=== PATIENT | male | born 1965 | race Hispanic/Latino ===

== ENCOUNTER 2017-01-23 23:08 | Observation (INO) | payer MEDICAID, OTHER ==
[2017-01-23 23:09] VITALS: BMI 19.8
[2017-01-23 23:20] VITALS: RESP 20; O2SAT 96
--- NOTE | 2017-01-23 23:31 | C.PDOC ---
History Of Present Illness 51 year old patient, with a past medical history of hypertension, arthritis, anxiety, and COPD, is brought to the ED via EMS for public intoxication. Patient is well known in the ED for frequent visits for the same. Patient denies fever, chest pain, shortness of breath, rash, nausea, vomiting, abdominal pain, headache, dizziness, suidical or homicidal ideation, or any other complaints. Pt asked for food on arrival. Time Seen by Provider: 01/23/17 23:25 Chief Complaint (Nursing): Substance Abuse History Per: Patient History/Exam Limitations: no limitations Onset/Duration Of Symptoms: Hrs Current Symptoms Are (Timing): Still Present Suicide/Self Injury Attempted (Context): None Modifying Factor(s): Alcohol Severity: Mild Involuntary Hold By: None Recent travel outside of the [place]: No Past Medical History Reviewed: Historical Data, Nursing Documentation, Vital Signs Vital Signs: Last Vital Signs Temp 97.6 F 01/23/17 23:15 Pulse 95 H 01/23/17 23:15 Resp 20 01/23/17 23:15 BP 122/69 01/23/17 23:15 Pulse Ox 96 01/24/17 00:31 - Medical History PMH: Anxiety, Arthritis, COPD, Depression, HTN, Pancreatitis, Pneumonia, Seizures Surgical History: - [facility] Procedures ALCOHOL DETOXIFICATION (07/31/14) DETOXIFICATION SERVICES FOR SUBSTANCE ABUSE TREATMENT (12/02/16) EXCISION OF SMALL INTESTINE, ENDO, DIAGN (12/02/16) INFLUENZA VACCINATION (10/21/13) INJECT/INFUSE ELECTROLYT (05/15/13) INJECT/INFUSE NEC (10/02/14) INSERT INTERCOSTAL CATH (01/22/15) INSERTION OF INFUSION DEV INTO SUP VENA CAVA, PERC APPROACH (12/02/16) LINEAR REP LID LACER (11/07/14) OTHER GROUP THERAPY (06/07/13) TETANUS TOXOID ADMINIST (11/07/14) THORACOSCOPIC DECORTICATION OF LUNG (01/22/15) TRANSFUSE NONAUT PLATELETS IN PERIPH VEIN, PERC (06/29/16) VACCINATION NEC (02/18/15) Family History: States: Unknown Family Hx - Social History Hx Tobacco Use: Yes Hx Alcohol Use: Yes Hx Substance Use: No - Immunization History Hx Tetanus Toxoid Vaccination: No Hx Influenza Vaccination: No Hx Pneumococcal Vaccination: No Review Of Systems Except As Marked, All Systems Reviewed And Found Negative. Constitutional: Negative for: Fever, Chills Cardiovascular: Negative for: Chest Pain Respiratory: Negative for: Shortness of Breath Gastrointestinal: Negative for: Nausea, Vomiting, Abdominal Pain Skin: Negative for: Rash Neurological: Negative for: Headache, Dizziness Psych: Negative for: Suicidal ideation (or homicidal ideation) Physical Exam - Physical Exam Appears: Non-toxic, No Acute Distress, Other (Intoxicated (+AOB)) Skin: Warm, Dry Head: Atraumatic, Normacephalic Eye(s): bilateral: Normal Inspection Oral Mucosa: Moist Neck: Normal ROM, Supple Cardiovascular: Rhythm Regular Respiratory: Normal Breath Sounds, No Accessory Muscle Use, No Rales, No Rhonchi , No Wheezing Gastrointestinal/Abdominal: Soft, No Tenderness, No Guarding, No Rebound Neurological/Psych: Oriented x3 ED Course And Treatment O2 Sat by Pulse Oximetry: 96 (Room air) Pulse Ox Interpretation: Normal Medical Decision Making Medical Decision Making: Pt is pending for sobriety. 530: pt awake alert ambulatory in [facility] ED OBSERVATION Date of observation admission: 01/23/17 Time of observation admission: 23:35 - Observation admission statement Patient is being placed in observation because:: Pending for sobriety. - Goals of Observation Goals of observation are:: Sobriety Disposition - Disposition Disposition Time: 05:31 Condition: STABLE - Clinical Impression Clinical Impression: Alcohol abuse - Scribe Statement The provider has reviewed the documentation as recorded by the Yocastaibbrenda coreas All medical record entries made by the Yocastaibbrenda were at my direction and personally dictated by me. I have reviewed the chart and agree that the record accurately reflects my personal performance of the history, physical exam, medical decision making, and the department course for this patient. I have also personally directed, reviewed, and agree with the discharge instructions and disposition.
[2017-01-24 05:36] VITALS: BP 136/72; PULSE 89; TEMP 98.1
== END 2017-01-24 05:33 | disposition home or self-care (01) ==
LOC: SUPCPDRO 23:08 → C.ER 23:08 → C.9OBSV 23:30
PROVIDERS: ADMIT Student in an Organized Health Care Education/Training Program; ATTEND Student in an Organized Health Care Education/Training Program
DX: F10.120 Alcohol abuse with intoxication, uncomplicated (principal); Y90.9 Presence of alcohol in blood, level not specified; Z87.891 Personal history of nicotine dependence; I10 Essential (primary) hypertension; J44.9 Chronic obstructive pulmonary disease, unspecified; Z59.0 Homelessness
CPT/HCPCS: G0378 ×2

== ENCOUNTER 2017-01-25 06:47 | Inpatient (IN) | payer OTHER ==
[2017-01-25 06:47] VITALS: BMI 19.8
--- NOTE | 2017-01-25 08:07 | C.PDOC ---
History Of Present Illness <Tasha Willis - Last Filed: 01/25/17 10:05> <Levar Bennett Jr. - Last Filed: 01/25/17 13:34> 51-year-old male, PMHx includes EtOH Abuse, Hypertension, Arthritis, Anxiety COPD, presents to the emergency department with complaints of public intoxication. Patients last drink was last night, states "they brought me here. " He is currently complaining of epigastric pain for unknown duration. Denies vomiting, diarrhea. All other Hx limited because pt is poor historian. POOR HISTORIAN "THEY BROUGHT ME HERE". +ETOH ABUSE, LAST DRINK LAST NIGHT. CO EPIG PAIN FOR UNK DURATION. DENIES VOMITING, DIARRHEA. DENIES PSH. past medical history of hypertension, arthritis, anxiety, and COPD, ROS LIMITED EXAM NONTOXIC, HEENT ANICTERIC; NO FASCICULATION ABD +EPIG TEND MOD SOFT NO R/G CV RRR NEURO NO FOCAL DEF;FINE TREMOR PSYCH MILD INTOX BUT CALM COOPERATIVE OLD REC: MULT RECENT ER VISITS FOR HOMELESSNESS, ABD PAIN. CT AND US RESULTS REVIEWED 01/23. MULT RECENT CT DONE . (Tasha Willis) History Per: Patient History/Exam Limitations: intoxication Onset/Duration Of Symptoms: Days <Tasha Willis - Last Filed: 01/25/17 10:05> <Levar Bennett Jr. - Last Filed: 01/25/17 13:34> Time Seen by Provider: 01/25/17 08:00 Chief Complaint (Nursing): Substance Abuse Past Medical History Reviewed: Historical Data, Nursing Documentation, Vital Signs - Medical History PMH: Anxiety, Arthritis, COPD, Depression, HTN, Pancreatitis, Pneumonia, Seizures Surgical History: Family History: States: Unknown Family Hx - Social History Hx Tobacco Use: Yes Hx Alcohol Use: Yes Hx Substance Use: No - Immunization History Hx Tetanus Toxoid Vaccination: No Hx Influenza Vaccination: No Hx Pneumococcal Vaccination: No <Tasha Willis - Last Filed: 01/25/17 10:05> Vital Signs: Last Vital Signs Temp 99.1 F 01/25/17 09:50 Pulse 78 01/25/17 13:24 Resp 20 01/25/17 13:24 BP 149/85 01/25/17 13:24 Pulse Ox 99 01/25/17 13:24 - [facility] Procedures ALCOHOL DETOXIFICATION (07/31/14) DETOXIFICATION SERVICES FOR SUBSTANCE ABUSE TREATMENT (12/02/16) EXCISION OF SMALL INTESTINE, ENDO, DIAGN (12/02/16) INFLUENZA VACCINATION (10/21/13) INJECT/INFUSE ELECTROLYT (05/15/13) INJECT/INFUSE NEC (10/02/14) INSERT INTERCOSTAL CATH (01/22/15) INSERTION OF INFUSION DEV INTO SUP VENA CAVA, PERC APPROACH (12/02/16) LINEAR REP LID LACER (11/07/14) OTHER GROUP THERAPY (06/07/13) TETANUS TOXOID ADMINIST (11/07/14) THORACOSCOPIC DECORTICATION OF LUNG (01/22/15) TRANSFUSE NONAUT PLATELETS IN PERIPH VEIN, PERC (06/29/16) VACCINATION NEC (02/18/15) Review Of Systems Review Of Systems: ROS cannot be obtained secondary to pt's inabilty to answer questions. Gastrointestinal: Positive for: Abdominal Pain Psych: Negative for: Suicidal ideation <Tasha Willis - Last Filed: 01/25/17 10:05> Physical Exam - Physical Exam Appears: Non-toxic, No Acute Distress, Other (MILD INTOX BUT CALM COOPERATIVE) Skin: Warm, Dry, No Rash Head: Atraumatic, Normacephalic Eye(s): bilateral: Normal Inspection, PERRL, EOMI, Other (ANICTERIC) Nose: Normal Oral Mucosa: Moist Tongue: Other (NO FASCICULATION) Neck: Normal ROM Cardiovascular: Rhythm Regular Respiratory: Normal Breath Sounds, No Accessory Muscle Use Gastrointestinal/Abdominal: Tenderness (MODERATE, EPIGASTRIC), No Guarding, No Rebound Extremity: Normal ROM Neurological/Psych: Other (NO FOCAL DEF; FINE TREMOR) <Tasha Willis - Last Filed: 01/25/17 10:05> ED Course And Treatment - Laboratory Results Result Diagrams: 01/25/17 08:54 01/25/17 08:54 O2 Sat by Pulse Oximetry: 95 Pulse Ox Interpretation: Normal - Radiology CXR: Interpreted by Ct CXR Interpretation: Yes: Infiltrates (rml) <Tasha Willis - Last Filed: 01/25/17 10:05> - Laboratory Results Result Diagrams: 01/25/17 08:54 01/25/17 08:54 <Levar Bennett Jr. - Last Filed: 01/25/17 13:34> Progress - Data Reviewed Data Reviewed: Lab, Diagnostic imaging, Old records <Tasha Willis - Last Filed: 01/25/17 10:05> Medical Decision Making <Tasha Willis - Last Filed: 01/25/17 10:05> <Levar Bennett Jr. - Last Filed: 01/25/17 13:34> Medical Decision Making: OLD REC: MULT RECENT ER VISITS FOR HOMELESSNESS, ABD PAIN. CT AND US RESULTS REVIEWED 01/23. MULT RECENT CT DONE . (Tasha Willis) ED OBSERVATION Date of observation admission: 01/25/17 Time of observation admission: 07:30 <Tasha Willis - Last Filed: 01/25/17 10:05> <Levar Bennett Jr. - Last Filed: 01/25/17 13:34> - Observation admission statement Patient is being placed in observation because:: abd pain, etoh abuse (Tasha Willis) - Goals of Observation Goals of observation are:: SOBRIETY; NEG SURG ABD (Tasha Willis) - Progress Note Progress Note: 01/25/17 10:00 VSS IMPROVED COMPARED TO PRIOR. APPEARS WEAK. 99% RA. D/W DR SHANDA AIKEN ENTERER WILL ADMIT 01/25/17 10:05 D/W DR ESCALONA MED RES (Tasha Willis) Disposition Counseled Patient/Family Regarding: Studies Performed, Diagnosis - Disposition Disposition Time: 09:59 - POA Present On Arrival: None <Tasha Willis - Last Filed: 01/25/17 10:05> <Levar Bennett Jr. - Last Filed: 01/25/17 13:34> - Disposition Disposition: HOSPITALIZED Condition: STABLE - Clinical Impression Clinical Impression: Pneumonia, Homelessness, Alcohol withdrawal - Scribe Statement The provider has reviewed the documentation as recorded by the Scribe <Tasha Willis - Last Filed: 01/25/17 10:05> <Levar Bennett Jr. - Last Filed: 01/25/17 13:34> - Scribe Statement Adele Foreman All medical record entries made by the Scribe were at my direction and personally dictated by me. I have reviewed the chart and agree that the record accurately reflects my personal performance of the history, physical exam, medical decision making, and the department course for this patient. I have also personally directed, reviewed, and agree with the discharge instructions and disposition. (Tasha Willis) Decision To Admit - Pt Status Changed To: Hospital Disposition Of: Inpatient - Admit Certification Admit to Inpatient:: After my assessment, the patient will require hospitalization for at least two midnights. This is because of the severity of symptoms shown, intensity of services needed, and/or the medical risk in this patient being treated as an outpatient. - InPatient: Physician Admission Certification: I certify that this patient requires 2 or more midnights of care for the following reason:: SEE NOTE - . Bed Request Type: Regular Admitting Physician: Theodore Roy Jr. <Tasha Willis - Last Filed: 01/25/17 10:05> <Levar Bennett Jr. - Last Filed: 01/25/17 13:34> - . Patient Diagnosis: Pneumonia, Homelessness, Alcohol withdrawal
[2017-01-25] MEDS ORDERED: Sodium Chloride 0.9% 1,000 ML IV ONE (08:09)
[2017-01-25] MEDS ORDERED: cefTRIAXone IV 1 gm in Dextros 50 ML IV STA (08:25)
[2017-01-25] MEDS ORDERED: Azithromycin 500 MG in Sodium Chloride 0.9% 250 ML IV STA (08:25)
--- NOTE | 2017-01-25 08:25 | RAD ---
PROCEDURE: CHEST RADIOGRAPH, 1 VIEW HISTORY: abd pain COMPARISON: 12/02/2016 FINDINGS: LUNGS: There is an interval right basal small infiltrate present. PLEURA: No pneumothorax or pleural fluid seen. CARDIOVASCULAR: Normal. OSSEOUS STRUCTURES: No significant abnormalities. VISUALIZED UPPER ABDOMEN: Normal. OTHER FINDINGS: None. IMPRESSION: Interval right basal infiltrate
[2017-01-25] MEDS ORDERED: cefTRIAXone IV 1 gm in Dextros 50 ML IVPB ONE (08:40)
[2017-01-25] MEDS ORDERED: Sodium Chloride 0.9% 1,000 ML ONE (08:41)
[2017-01-25 08:57] LABS: BASO # 0.1 K/uL (0.0-0.2); BASO % 1.2 % (0.0-2.0); EOS % 0.5 % (0.0-4.0); HEMATOCRIT 33.8 % (35.0-51.0); LYMPH # 1.2 K/uL (1.0-4.3); LYMPH % 15.9 % (20.0-40.0); MEAN CORPUSCULAR HEMOGLOBIN 25.5 pg (27.0-31.0); MEAN CORPUSCULAR HGB CONC 32.2 g/dL (33.0-37.0); MEAN PLATELET VOLUME 8.1 fL (7.2-11.7); MONO # 0.4 K/uL (0.0-0.8); MONO % 5.2 % (0.0-10.0); NRBC % 0.3 % (0.0-2.0); RED CELL DISTRIBUTION WIDTH 17.4 % (11.5-14.5)
[2017-01-25 09:06] LABS: CHLORIDE 91 mmol/L (98-107); POTASSIUM 3.9 mmol/L (3.6-5.2); SODIUM 137 mmol/L (132-148)
[2017-01-25 09:07] LABS: MEAN CELL VOLUME 79.2 fL (80.0-94.0); WHITE BLOOD COUNT 7.7 K/uL (4.8-10.8)
[2017-01-25 09:08] LABS: ALKALINE PHOSPHATASE 184 U/L (38-126); AST/SGOT 77 U/L (17-59); BILIRUBIN,TOTAL 0.5 mg/dL (0.2-1.3); BLOOD UREA NITROGEN 8 mg/dL (9-20); CARBON DIOXIDE 32 mmol/L (22-30); GFR AFRICAN-AMERICAN > 60
[2017-01-25 09:09] LABS: ALT/SGPT 43 U/L (21-72); CALCIUM 8.5 mg/dl (8.6-10.4); GLUCOSE,RANDOM 80 mg/dL (75-110)
[2017-01-25] MEDS ORDERED: Azithromycin 500mg/250ML NS 250 ML IVPB ONE (09:20)
[2017-01-25 11:11] LABS: RBC URINE < 1 /hpf (0-3); URINE BILIRUBIN NEGATIVE (NEGATIVE); URINE BLOOD NEGATIVE (NEGATIVE); URINE COLOR Straw (YELLOW); URINE GLUCOSE (UA) 1+ mg/dL (Normal); URINE KETONE NEGATIVE (NEGATIVE); URINE LEUKOCYTE ESTERASE NEG Leu/uL (Negative); URINE PROTEIN NEGATIVE (NEGATIVE); URINE UROBILINOGEN NORMAL mg/dL (0.2-1.0); WBC URINE < 1 /hpf (0-5)
--- NOTE | 2017-01-25 13:17 | CP.PCM.HP ---
History of Present Illness - History of Present Illness History of Present Illness: CC: public intoxication HPI: This is a 51-year-old homeless male, PMHx includes EtOH Abuse, Hypertension , Arthritis, Anxiety COPD, presented to the emergency department after being brought into the ED for public intoxication. Pt is very familiar to ED staff for same complaint and is a poor historian. Pt admits to come epigastric pain that he states he has on and off. It is sharp in nature and does not radiate anywhere else. He was worked up for this ~[address] of the abd/ pelvis. No acute findings were noted. Diffuse calcification of the pancreas noted and consistent with chronic pancreatitis, likely secondary to his Etoh abuse. Pt also admits to a cough that he was not able to clarify as to when it started as it is somewhat chronic in nature which is also consistent with his smoking history. He states it is non-productive, denies fevers, chills, chest pain, palpitations, nausea or vomiting. PMD: none PMH: as above PSH: Denies Home meds: none Allergies: NKA FH: denies SH: Extensive Etoh abuse hx (at least 1 pint a day for "years), tobacco for >40 years, denies other drugs, homeless Present on Admission - Present on Admission Any Indicators Present on Admission: No Review of Systems - Constitutional Constitutional: absent: Chills, Fever - EENT Eyes: absent: Pain Nose/Mouth/Throat: absent: Nasal Congestion, Nasal Discharge - Cardiovascular Cardiovascular: absent: Chest Pain, Palpitations - Respiratory Respiratory: Cough, Pain with Coughing. absent: Dyspnea - Gastrointestinal Gastrointestinal: Abdominal Pain (epigastric). absent: Nausea, Vomiting - Genitourinary Genitourinary: absent: Urinary Frequency, Urinary Urgency - Musculoskeletal Musculoskeletal: absent: Muscle Weakness, Stiffness - Integumentary Integumentary: absent: Pruritus, Rash Past Patient History - Infectious Disease Hx of Infectious Diseases: None - Tetanus Immunizations Tetanus Immunization: Unknown - Past Medical History & Family History Past Medical History?: Yes - Past Social History Smoking Status: Heavy Smoker > 10 Cigarettes Daily - CARDIAC Hx Hypertension: Yes - PULMONARY Hx Chronic Obstructive Pulmonary Disease (COPD): Yes Hx Pneumonia: Yes - NEUROLOGICAL Hx Seizures: Yes - HEENT Hx HEENT Problems: No - RENAL Hx Chronic Kidney Disease: No - ENDOCRINE/METABOLIC Hx Endocrine Disorders: No - HEMATOLOGICAL/ONCOLOGICAL Hx Human Immunodeficiency Virus (HIV): No - INTEGUMENTARY Hx Dermatological Problems: No - MUSCULOSKELETAL/RHEUMATOLOGICAL Hx Arthritis: Yes - GASTROINTESTINAL Hx Pancreatitis: Yes - PSYCHIATRIC Hx Anxiety: Yes Hx Depression: Yes Hx Substance Use: No - SURGICAL HISTORY Hx Surgeries: No Other/Comment: left lung surgery - ANESTHESIA Hx Anesthesia: Yes Hx Anesthesia Reactions: No Hx Malignant Hyperthermia: No Meds Allergies/Adverse Reactions: Allergies Allergy/AdvReac Type Severity Reaction Status Date / Time No Known Allergies Allergy Verified 01/25/17 06:57 Physical Exam - Constitutional Appears: No Acute Distress, Chronically Ill - Head Exam Head Exam: ATRAUMATIC, NORMOCEPHALIC - Eye Exam Eye Exam: Normal appearance Pupil Exam: PERRL - ENT Exam ENT Exam: Mucous Membranes Moist - Respiratory Exam Respiratory Exam: Rhonchi, NORMAL BREATHING PATTERN - Cardiovascular Exam Cardiovascular Exam: +S1, +S2 - GI/Abdominal Exam GI & Abdominal Exam: Normal Bowel Sounds, Tenderness (acutely tender in epigastric area). absent: Distended - Extremities Exam Extremities exam: Positive for: normal capillary refill - Back Exam Back exam: NORMAL INSPECTION - Neurological Exam Neurological exam: Alert, Oriented x3 - Skin Skin Exam: Dry, Warm Results - Vital Signs Recent Vital Signs: Last Vital Signs Temp 99.1 F 01/25/17 09:50 Pulse 81 01/25/17 09:54 Resp 13 01/25/17 09:54 BP 157/92 H 01/25/17 09:54 Pulse Ox 95 01/25/17 10:05 - Labs Result Diagrams: 01/25/17 08:54 01/25/17 08:54 Labs: Laboratory Results - last 24 hr 01/25/17 11:06 Urine Color Straw Urine Clarity Clear Urine pH 7.0 Ur Specific [place] 1.010 Urine Protein Negative Urine Glucose (UA) 1+ H Urine Ketones Negative Urine Blood Negative Urine Nitrate Negative Urine Bilirubin Negative Urine Urobilinogen Normal Ur Leukocyte Esterase Neg Urine WBC (Auto) < 1 Urine RBC (Auto) < 1 Ur Squamous Epith Cells < 1 Assessment & Plan - Assessment and Plan (Free Text) Assessment: Right lower infiltrate - CXR 01/25 - Interval right basal infiltrate - Nosocomial vs aspiration pneumonia - Afebrile and no leukocytosis - Given 1 dose of Rocephin and Azithromycin in ED - Pt started on Clindamycin and Rocephin - Pulmonology consult ([place]) - help appreciated - Tylenol PRN - Morning labs, f/u - F/U cultures Etoh withdrawal - Pt mildy hypertensive and is slightly tremulous - Last drink reportedly last night - Librium 50mg Q8H with instructions to give unless sleeping or sedated - Folic acid and thiamine - Zofran PRN - NS at 100 cc/hr Abdominal pain - CT abd/pelvis 01/15 - Re- demonstration of moderate intrahepatic and extrahepatic biliary ductal dilatation. Interval increase in the size of pancreatic head low-attenuation cystic lesions since the previous exam. Moderately dilated main pancreatic duct. Diffuse calcification in the pancreas consistent with chronic pancreatitis. - Abd US 01/14 - Hepatomegaly. Diffuse fatty infiltration of the liver. Mild intrahepatic biliary ductal dilatation. Dilated common bile duct to 11 mm. Possible small gallbladder polyps. No evidence of cholecystitis. Diffuse pancreatic calcification consistent with chronic pancreatitis. 3.7 cm cyst in the pancreatic head increased in size from prior CT examination, possible intrapancreatic pseudocyst. Followup advised to exclude pancreatic cystic neoplasm. Recommend contrast-enhanced CT examination. Pancreatic ductal dilatation - Lipase 26 - Labs WNL, f/u AM labs - Zofran PRN - Pepcid Hx of HTN - BP slightly elevated, likely to go down with Librium, will cont to monitor Hx of COPD - not SOB currently - Duonebs PRN PPX - Lovenox - Pepcid - Zofran PRN - Tylenol PRN Case d/w and all management per Dr Manuela Melo PGY-1 - Date & Time Date: 01/25/17 Time: 14:02
[2017-01-25] MEDS ORDERED: Sodium Chloride 0.9% 250 ML IV ONE (13:21)
[2017-01-25] MEDS: Sodium Chloride 0.9% 1,000 ML IV SCH ×2 (13:23→22:22)
[2017-01-25] MEDS ORDERED: Albuterol-Ipratrop 3 mg / 0.5 (3 ml) UD INH PRN (14:00)
[2017-01-25] MEDS: Clindamycin 600mg/50ml D5W 50 ML IVPB SCH ×2 (14:13→23:08)
[2017-01-26] MEDS: Clindamycin 600mg/50ml D5W 50 ML IVPB SCH ×3 (06:48→22:08)
[2017-01-26 07:53] LABS: BASO # 0.1 K/uL (0.0-0.2); BASO % 1.2 % (0.0-2.0); EOS # 0.1 K/uL (0.0-0.7); EOS % 0.9 % (0.0-4.0); HEMATOCRIT 30.7 % (35.0-51.0); LYMPH % 17.5 % (20.0-40.0); MEAN CELL VOLUME 78.6 fL (80.0-94.0); MEAN CORPUSCULAR HEMOGLOBIN 24.9 pg (27.0-31.0); MEAN CORPUSCULAR HGB CONC 31.7 g/dL (33.0-37.0); MEAN PLATELET VOLUME 7.6 fL (7.2-11.7); MONO # 0.3 K/uL (0.0-0.8); MONO % 5.8 % (0.0-10.0); NRBC % 0.2 % (0.0-2.0); RED CELL DISTRIBUTION WIDTH 17.5 % (11.5-14.5); WHITE BLOOD COUNT 5.8 K/uL (4.8-10.8)
[2017-01-26 08:06] LABS: CHLORIDE 87 mmol/L (98-107); SODIUM 128 mmol/L (132-148)
[2017-01-26 08:07] LABS: POTASSIUM 3.3 mmol/L (3.6-5.2)
[2017-01-26 08:09] LABS: ALKALINE PHOSPHATASE 139 U/L (38-126); ALT/SGPT 29 U/L (21-72); AST/SGOT 50 U/L (17-59); BILIRUBIN,TOTAL 0.4 mg/dL (0.2-1.3); BLOOD UREA NITROGEN 4 mg/dL (9-20); CARBON DIOXIDE 27 mmol/L (22-30); GFR AFRICAN-AMERICAN > 60; GLUCOSE,RANDOM 218 mg/dL (75-110); TOTAL PROTEIN 6.5 g/dL (6.3-8.3)
[2017-01-26 08:10] LABS: CALCIUM 7.4 mg/dl (8.6-10.4)
--- NOTE | 2017-01-26 09:53 | CP.PCM.CON ---
History of Present Illness - History of Present Illness History of Present Illness: Reason for consultation: Shortness of breath and cough 51-year-old homeless male, PMHx includes EtOH Abuse, Hypertension, Arthritis, Anxiety COPD, presented to the emergency department after being brought into the ED for public intoxication. Pt also c/o cough that he was not able to clarify as to when it started as it is somewhat chronic in nature which is also consistent with his smoking history. He states it is non-productive, denies fevers, chills, chest pain, palpitations, nausea or vomiting. PMH: as above PSH: Denies Home meds: none Allergies: NKA FH: denies SH: Extensive Etoh abuse hx (at least 1 pint a day for "years), tobacco for >40 years, denies other drugs, homeless Review of Systems - Review of Systems All systems: reviewed and no additional remarkable complaints except (Cough and shortness of breath) Past Patient History - Infectious Disease Hx of Infectious Diseases: None - Tetanus Immunizations Tetanus Immunization: Unknown - Past Medical History & Family History Past Medical History?: Yes - Past Social History Smoking Status: Heavy Smoker > 10 Cigarettes Daily - CARDIAC Hx Cardiac Disorders: Yes Hx Hypertension: Yes - PULMONARY Hx Respiratory Disorders: Yes Hx Chronic Obstructive Pulmonary Disease (COPD): Yes Hx Pneumonia: Yes - NEUROLOGICAL Hx Neurological Disorder: Yes Hx Seizures: Yes - HEENT Hx HEENT Problems: No - RENAL Hx Chronic Kidney Disease: No - ENDOCRINE/METABOLIC Hx Endocrine Disorders: No - HEMATOLOGICAL/ONCOLOGICAL Hx Blood Disorders: No Hx Human Immunodeficiency Virus (HIV): No - INTEGUMENTARY Hx Dermatological Problems: No - MUSCULOSKELETAL/RHEUMATOLOGICAL Hx Musculoskeletal Disorders: Yes Hx Arthritis: Yes Hx Falls: Yes - GASTROINTESTINAL Hx Gastrointestinal Disorders: Yes Hx Pancreatitis: Yes - GENITOURINARY/GYNECOLOGICAL Hx Genitourinary Disorders: No - PSYCHIATRIC Hx Psychophysiologic Disorder: Yes Hx Anxiety: Yes Hx Depression: Yes Hx Substance Use: Yes - SURGICAL HISTORY Hx Surgeries: Yes Other/Comment: left lung surgery - ANESTHESIA Hx Anesthesia: Yes Hx Anesthesia Reactions: No Hx Malignant Hyperthermia: No Has any member of the family had a problem w/ anesthesia?: No Meds Allergies/Adverse Reactions: Allergies Allergy/AdvReac Type Severity Reaction Status Date / Time No Known Allergies Allergy Verified 01/25/17 06:57 - Medications Medications: Current Medications Acetaminophen (Tylenol 325mg Tab) 650 mg PO Q6 PRN PRN Reason: Fever >100.4 F Last Admin: 01/25/17 17:51 Dose: 650 mg Albuterol/Ipratropium (Duoneb 3 Mg/0.5 Mg (3 Ml) Ud) 3 ml INH RQ4 PRN PRN Reason: Shortness of Breath Chlordiazepoxide (Librium) 50 mg PO Q8 [facility] Last Admin: 01/26/17 07:00 Dose: 50 mg Enoxaparin Sodium (Lovenox) 40 mg SC DAILY [facility] Famotidine (Pepcid) 20 mg IVP Q12 [facility] Last Admin: 01/25/17 22:11 Dose: 20 mg Folic Acid (Folic Acid) 1 mg PO DAILY [facility] Last Admin: 01/25/17 14:13 Dose: 1 mg Clindamycin Phosphate (Cleocin) 50 mls @ 100 mls/hr IVPB Q8H [facility] Last Admin: 01/26/17 06:48 Dose: 100 mls/hr Sodium Chloride (Sodium Chloride 0.9%) 1,000 mls @ 100 mls/hr IV .Q10H [facility] Last Admin: 01/25/17 22:22 Dose: Not Given Ceftriaxone Sodium (Rocephin Iv 1 Gm Duplex) 50 mls @ 100 mls/hr IVPB DAILY [facility] Ondansetron HCl (Zofran Inj) 4 mg IVP Q4H PRN PRN Reason: Nausea/Vomiting Thiamine HCl (Vitamin B1 Tab) 100 mg PO DAILY [facility] Last Admin: 01/25/17 14:13 Dose: 100 mg Physical Exam - Constitutional Appears: No Acute Distress - Head Exam Head Exam: ATRAUMATIC, NORMOCEPHALIC - Eye Exam Eye Exam: Normal appearance - ENT Exam ENT Exam: Mucous Membranes Moist - Respiratory Exam Respiratory Exam: Rhonchi, Wheezes - Cardiovascular Exam Cardiovascular Exam: REGULAR RHYTHM - Extremities Exam Extremities exam: Positive for: normal inspection Results - Vital Signs Recent Vital Signs: Last Vital Signs Temp 97.8 F 01/26/17 08:00 Pulse 88 01/26/17 08:00 Resp 20 01/26/17 08:00 BP 143/74 01/26/17 08:00 Pulse Ox 97 01/26/17 08:00 - Labs Result Diagrams: 01/26/17 07:47 01/26/17 07:47 Labs: Laboratory Results - last 24 hr 01/25/17 01/26/17 11:06 07:47 WBC 5.8 RBC 3.91 L Hgb 9.7 L Hct 30.7 L MCV 78.6 L MCH 24.9 L MCHC 31.7 L RDW 17.5 H Plt Count 210 MPV 7.6 Neut % (Auto) 74.6 Lymph % (Auto) 17.5 L Thomas % (Auto) 5.8 Eos % (Auto) 0.9 Baso % (Auto) 1.2 Neut # 4.3 Lymph # 1.0 Thomas # 0.3 Eos # 0.1 Baso # 0.1 Sodium 128 L Potassium 3.3 L Chloride 87 L Carbon Dioxide 27 Anion Gap 17 BUN 4 L Creatinine 0.6 L Est GFR ( Amer) > 60 Est GFR (Non-Af Amer) > 60 Random Glucose 218 H Calcium 7.4 L Total Bilirubin 0.4 AST 50 ALT 29 Alkaline Phosphatase 139 H D Total Protein 6.5 Albumin 3.3 L Globulin 3.2 Albumin/Globulin Ratio 1.0 Urine Color Straw Urine Clarity Clear Urine pH 7.0 Ur Specific [place] 1.010 Urine Protein Negative Urine Glucose (UA) 1+ H Urine Ketones Negative Urine Blood Negative Urine Nitrate Negative Urine Bilirubin Negative Urine Urobilinogen Normal Ur Leukocyte Esterase Neg Urine WBC (Auto) < 1 Urine RBC (Auto) < 1 Ur Squamous Epith Cells < 1 Assessment & Plan (1) Pneumonia Status: Acute Comment: Chest x-ray consistent with right basal infiltrate. Patient with long history of smoking. Continue antibiotics. Continue nebulizer treatment. Follow-up culture and sensitivity
[2017-01-26] MEDS: Enoxaparin 40 mg Syringe SC SCH (10:34)
[2017-01-26] MEDS: cefTRIAXone IV 1 gm in Dextros 50 ML IVPB SCH (10:34)
[2017-01-26] MEDS: Sodium Chloride 0.9% 1,000 ML IV SCH ×3 (10:36→21:43)
--- NOTE | 2017-01-26 11:21 | CP.PCM.PN ---
<KameronMatthew - Last Filed: 01/26/17 17:11> Subjective - Date & Time of Evaluation Date of Evaluation: 01/26/17 Time of Evaluation: 11:12 - Subjective Subjective: PGY-[address] Roy's service Pt seen and examined at bedside. Per staff, no overnight events or signs of withdrawal. The pt states he still has non-productive cough. Denies any SOB and did not request breathing treatment. Denies fevers, chills, chest pain, nausea or vomiting. Objective - Vital Signs/Intake and Output Vital Signs (last 24 hours): Temp Pulse Resp BP Pulse Ox 97.8 F 88 20 143/74 97 01/26/17 08:00 01/26/17 08:00 01/26/17 08:00 01/26/17 08:00 01/26/17 08:00 Intake and Output: 01/26/17 01/26/17 06:59 18:59 Intake Total 2049 Balance 2049 - Medications Medications: Current Medications Acetaminophen (Tylenol 325mg Tab) 650 mg PO Q6 PRN PRN Reason: Fever >100.4 F Last Admin: 01/25/17 17:51 Dose: 650 mg Albuterol/Ipratropium (Duoneb 3 Mg/0.5 Mg (3 Ml) Ud) 3 ml INH RQ4 PRN PRN Reason: Shortness of Breath Chlordiazepoxide (Librium) 50 mg PO Q8 [facility] Last Admin: 01/26/17 07:00 Dose: 50 mg Enoxaparin Sodium (Lovenox) 40 mg SC DAILY [facility] Last Admin: 01/26/17 10:34 Dose: 40 mg Famotidine (Pepcid) 20 mg IVP Q12 [facility] Last Admin: 01/26/17 10:34 Dose: 20 mg Folic Acid (Folic Acid) 1 mg PO DAILY [facility] Last Admin: 01/26/17 10:34 Dose: 1 mg Clindamycin Phosphate (Cleocin) 50 mls @ 100 mls/hr IVPB Q8H [facility] Last Admin: 01/26/17 06:48 Dose: 100 mls/hr Sodium Chloride (Sodium Chloride 0.9%) 1,000 mls @ 100 mls/hr IV .Q10H [facility] Last Admin: 01/26/17 10:36 Dose: 100 mls/hr Ceftriaxone Sodium (Rocephin Iv 1 Gm Duplex) 50 mls @ 100 mls/hr IVPB DAILY [facility] Last Admin: 01/26/17 10:34 Dose: 100 mls/hr Ondansetron HCl (Zofran Inj) 4 mg IVP Q4H PRN PRN Reason: Nausea/Vomiting Thiamine HCl (Vitamin B1 Tab) 100 mg PO DAILY [facility] Last Admin: 01/26/17 10:34 Dose: 100 mg - Labs Labs: 01/26/17 07:47 01/26/17 07:47 - Constitutional Appears: Non-toxic, No Acute Distress, Chronically Ill - Head Exam Head Exam: ATRAUMATIC, NORMOCEPHALIC - ENT Exam ENT Exam: Mucous Membranes Moist - Respiratory Exam Respiratory Exam: Rhonchi, NORMAL BREATHING PATTERN - Cardiovascular Exam Cardiovascular Exam: +S1, +S2 - GI/Abdominal Exam GI & Abdominal Exam: Soft, Tenderness (epigastric), Normal Bowel Sounds - Neurological Exam Neurological Exam: Alert, Awake - Skin Skin Exam: Dry, Warm Assessment and Plan - Assessment and Plan (Free Text) Assessment: Right lower infiltrate - CXR 01/25 - Interval right basal infiltrate - Nosocomial vs aspiration pneumonia - Afebrile and no leukocytosis - Given 1 dose of Rocephin and Azithromycin in ED - Continue Clindamycin (01/25) and Rocephin (01/25) - Pulmonology consult ([facility]) - help appreciated - Cont with current management - Tylenol PRN - Morning labs, f/u - F/U cultures - pending Etoh withdrawal - No signs or symptoms of withdrawal - Last drink reportedly last night (01/24) - Librium 50mg Q8H with instructions to give unless sleeping or sedated - Folic acid and thiamine - Zofran PRN - NS at 100 cc/hr Abdominal pain - CT abd/pelvis 01/15 - Re- demonstration of moderate intrahepatic and extrahepatic biliary ductal dilatation. Interval increase in the size of pancreatic head low-attenuation cystic lesions since the previous exam. Moderately dilated main pancreatic duct. Diffuse calcification in the pancreas consistent with chronic pancreatitis. - Abd US 01/14 - Hepatomegaly. Diffuse fatty infiltration of the liver. Mild intrahepatic biliary ductal dilatation. Dilated common bile duct to 11 mm. Possible small gallbladder polyps. No evidence of cholecystitis. Diffuse pancreatic calcification consistent with chronic pancreatitis. 3.7 cm cyst in the pancreatic head increased in size from prior CT examination, possible intrapancreatic pseudocyst. Followup advised to exclude pancreatic cystic neoplasm. Recommend contrast-enhanced CT examination. Pancreatic ductal dilatation - Lipase 26 - Labs WNL, f/u AM labs - Zofran PRN - Pepcid Hx of HTN - Stable - Monitor Hx of COPD - not SOB currently - Duonebs PRN PPX - Lovenox - Pepcid - Zofran PRN - Tylenol PRN Case d/w and all management per Dr Manuela Melo PGY-1 <Theodore Roy Jr. - Last Filed: 01/27/17 12:07> Objective - Vital Signs/Intake and Output Vital Signs (last 24 hours): Temp Pulse Resp BP Pulse Ox 99.2 F 78 20 135/74 95 01/27/17 07:38 01/27/17 07:38 01/27/17 07:38 01/27/17 07:38 01/27/17 07:38 Intake and Output: 01/27/17 01/27/17 06:59 18:59 Intake Total 1050 Balance 1050 - Medications Medications: Current Medications Acetaminophen (Tylenol 325mg Tab) 650 mg PO Q6 PRN PRN Reason: Fever >100.4 F Last Admin: 01/25/17 17:51 Dose: 650 mg Albuterol/Ipratropium (Duoneb 3 Mg/0.5 Mg (3 Ml) Ud) 3 ml INH RQ4 PRN PRN Reason: Shortness of Breath Chlordiazepoxide (Librium) 50 mg PO Q8 [facility] Last Admin: 01/27/17 05:42 Dose: 50 mg Enoxaparin Sodium (Lovenox) 40 mg SC DAILY [facility] Last Admin: 01/27/17 10:41 Dose: 40 mg Famotidine (Pepcid) 20 mg IVP Q12 [facility] Last Admin: 01/27/17 10:47 Dose: 20 mg Folic Acid (Folic Acid) 1 mg PO DAILY [facility] Last Admin: 01/27/17 10:41 Dose: 1 mg Clindamycin Phosphate (Cleocin) 50 mls @ 100 mls/hr IVPB Q8H [facility] Last Admin: 01/27/17 06:00 Dose: 100 mls/hr Sodium Chloride (Sodium Chloride 0.9%) 1,000 mls @ 100 mls/hr IV .Q10H [facility] Last Admin: 01/27/17 10:48 Dose: 100 mls/hr Ceftriaxone Sodium (Rocephin Iv 1 Gm Duplex) 50 mls @ 100 mls/hr IVPB DAILY [facility] Last Admin: 01/27/17 10:41 Dose: 100 mls/hr Ondansetron HCl (Zofran Inj) 4 mg IVP Q4H PRN PRN Reason: Nausea/Vomiting Thiamine HCl (Vitamin B1 Tab) 100 mg PO DAILY [facility] Last Admin: 01/27/17 10:41 Dose: 100 mg - Labs Labs: 01/27/17 08:31 01/27/17 08:31 Attending/Attestation - Attestation I have personally seen and examined this patient.: Yes I have fully participated in the care of the patient.: Yes I have reviewed all pertinent clinical information, including history, physical exam and plan: Yes
--- NOTE | 2017-01-27 01:14 | CP.PCM.PN ---
<Levar Bess - Last Filed: 01/27/17 08:33> Subjective - Date & Time of Evaluation Date of Evaluation: 01/27/17 Time of Evaluation: 12:55 - Subjective Subjective: PGY-[address] Roy's service Pt seen and examined at bedside. No acute events per nursing. Pt c/o non- productive cough, although slightly improved today. Admits to nausea and chronic diarrhea (one episode overnight). Denies fevers, chills, chest pain, SOB , abdominal pain, vomiting, or any additional acute complaints. Objective - Vital Signs/Intake and Output Vital Signs (last 24 hours): Temp Pulse Resp BP Pulse Ox 99.4 F 84 20 139/79 94 L 01/27/17 00:00 01/27/17 00:00 01/27/17 00:00 01/27/17 00:00 01/27/17 00:00 Intake and Output: 01/26/17 01/27/17 18:59 06:59 Intake Total 900 Balance 900 - Medications Medications: Current Medications Acetaminophen (Tylenol 325mg Tab) 650 mg PO Q6 PRN PRN Reason: Fever >100.4 F Last Admin: 01/25/17 17:51 Dose: 650 mg Albuterol/Ipratropium (Duoneb 3 Mg/0.5 Mg (3 Ml) Ud) 3 ml INH RQ4 PRN PRN Reason: Shortness of Breath Chlordiazepoxide (Librium) 50 mg PO Q8 [facility] Last Admin: 01/26/17 21:37 Dose: 50 mg Enoxaparin Sodium (Lovenox) 40 mg SC DAILY [facility] Last Admin: 01/26/17 10:34 Dose: 40 mg Famotidine (Pepcid) 20 mg IVP Q12 [facility] Last Admin: 01/26/17 21:38 Dose: 20 mg Folic Acid (Folic Acid) 1 mg PO DAILY [facility] Last Admin: 01/26/17 10:34 Dose: 1 mg Clindamycin Phosphate (Cleocin) 50 mls @ 100 mls/hr IVPB Q8H [facility] Last Admin: 01/26/17 22:08 Dose: 100 mls/hr Sodium Chloride (Sodium Chloride 0.9%) 1,000 mls @ 100 mls/hr IV .Q10H [facility] Last Admin: 01/26/17 21:43 Dose: 100 mls/hr Ceftriaxone Sodium (Rocephin Iv 1 Gm Duplex) 50 mls @ 100 mls/hr IVPB DAILY [facility] Last Admin: 01/26/17 10:34 Dose: 100 mls/hr Ondansetron HCl (Zofran Inj) 4 mg IVP Q4H PRN PRN Reason: Nausea/Vomiting Thiamine HCl (Vitamin B1 Tab) 100 mg PO DAILY [facility] Last Admin: 01/26/17 10:34 Dose: 100 mg - Labs Labs: 01/26/17 07:47 01/26/17 07:47 - Additional Findings Additional findings: - Constitutional Appears: Non-toxic, No Acute Distress, Chronically Ill - Head Exam Head Exam: ATRAUMATIC, NORMOCEPHALIC - ENT Exam ENT Exam: Mucous Membranes Moist - Respiratory Exam Respiratory Exam: Rhonchi, NORMAL BREATHING PATTERN - Cardiovascular Exam Cardiovascular Exam: +S1, +S2 - GI/Abdominal Exam GI & Abdominal Exam: Soft, Tenderness (epigastric, mildly improved), Normal Bowel Sounds - Neurological Exam Neurological Exam: Alert, Awake - Skin Skin Exam: Dry, Warm Assessment and Plan - Assessment and Plan (Free Text) Assessment: Right lower infiltrate 01/27: Urine culture - negative - F/U Blood cultures - pending - CXR 01/25 - Interval right basal infiltrate - Nosocomial vs aspiration pneumonia - Afebrile and no leukocytosis - Given 1 dose of Rocephin and Azithromycin in ED - Continue Clindamycin (01/25) and Rocephin (01/25) - Pulmonology consult ([place]) - help appreciated - Cont with current management - Tylenol PRN - Morning labs, f/u Etoh withdrawal 01/27: No signs or symptoms of withdrawal; mild tremor in outstretched hands. - Last drink reportedly last night (01/24) - Librium 50mg Q8H with instructions to give unless sleeping or sedated - Folic acid and thiamine - Zofran PRN - NS at 100 cc/hr Abdominal pain 01/27: persistent epigastric tenderness, mildly improved - CT abd/pelvis 01/15 - Re- demonstration of moderate intrahepatic and extrahepatic biliary ductal dilatation. Interval increase in the size of pancreatic head low-attenuation cystic lesions since the previous exam. Moderately dilated main pancreatic duct. Diffuse calcification in the pancreas consistent with chronic pancreatitis. - Abd US 01/14 - Hepatomegaly. Diffuse fatty infiltration of the liver. Mild intrahepatic biliary ductal dilatation. Dilated common bile duct to 11 mm. Possible small gallbladder polyps. No evidence of cholecystitis. Diffuse pancreatic calcification consistent with chronic pancreatitis. 3.7 cm cyst in the pancreatic head increased in size from prior CT examination, possible intrapancreatic pseudocyst. Followup advised to exclude pancreatic cystic neoplasm. Recommend contrast-enhanced CT examination. Pancreatic ductal dilatation - Lipase 26 - Labs WNL, f/u AM labs - Zofran PRN - Pepcid Hx of HTN - Stable - Monitor Hx of COPD - not SOB currently - Duonebs PRN PPX - Lovenox - Pepcid - Zofran PRN - Tylenol PRN <Theodore Roy Jr. - Last Filed: 01/27/17 12:10> Objective - Vital Signs/Intake and Output Vital Signs (last 24 hours): Temp Pulse Resp BP Pulse Ox 99.2 F 78 20 135/74 95 01/27/17 07:38 01/27/17 07:38 01/27/17 07:38 01/27/17 07:38 01/27/17 07:38 Intake and Output: 01/27/17 01/27/17 06:59 18:59 Intake Total 1050 Balance 1050 - Medications Medications: Current Medications Acetaminophen (Tylenol 325mg Tab) 650 mg PO Q6 PRN PRN Reason: Fever >100.4 F Last Admin: 01/25/17 17:51 Dose: 650 mg Albuterol/Ipratropium (Duoneb 3 Mg/0.5 Mg (3 Ml) Ud) 3 ml INH RQ4 PRN PRN Reason: Shortness of Breath Chlordiazepoxide (Librium) 50 mg PO Q8 [facility] Last Admin: 01/27/17 05:42 Dose: 50 mg Enoxaparin Sodium (Lovenox) 40 mg SC DAILY [facility] Last Admin: 01/27/17 10:41 Dose: 40 mg Famotidine (Pepcid) 20 mg IVP Q12 [facility] Last Admin: 01/27/17 10:47 Dose: 20 mg Folic Acid (Folic Acid) 1 mg PO DAILY [facility] Last Admin: 01/27/17 10:41 Dose: 1 mg Clindamycin Phosphate (Cleocin) 50 mls @ 100 mls/hr IVPB Q8H [facility] Last Admin: 01/27/17 06:00 Dose: 100 mls/hr Sodium Chloride (Sodium Chloride 0.9%) 1,000 mls @ 100 mls/hr IV .Q10H [facility] Last Admin: 01/27/17 10:48 Dose: 100 mls/hr Ceftriaxone Sodium (Rocephin Iv 1 Gm Duplex) 50 mls @ 100 mls/hr IVPB DAILY [facility] Last Admin: 01/27/17 10:41 Dose: 100 mls/hr Ondansetron HCl (Zofran Inj) 4 mg IVP Q4H PRN PRN Reason: Nausea/Vomiting Thiamine HCl (Vitamin B1 Tab) 100 mg PO DAILY [facility] Last Admin: 01/27/17 10:41 Dose: 100 mg - Labs Labs: 01/27/17 08:31 01/27/17 08:31 Attending/Attestation - Attestation I have personally seen and examined this patient.: Yes I have fully participated in the care of the patient.: Yes I have reviewed all pertinent clinical information, including history, physical exam and plan: Yes
[2017-01-27] MEDS: Sodium Chloride 0.9% 1,000 ML IV SCH ×4 (05:00→21:30)
[2017-01-27] MEDS: Clindamycin 600mg/50ml D5W 50 ML IVPB SCH ×3 (06:00→22:05)
[2017-01-27 08:41] LABS: BASO % 1.4 % (0.0-2.0); EOS # 0.1 K/uL (0.0-0.7); EOS % 2.9 % (0.0-4.0); HEMATOCRIT 34.3 % (35.0-51.0); LYMPH # 1.2 K/uL (1.0-4.3); LYMPH % 35.1 % (20.0-40.0); MEAN CELL VOLUME 79.8 fL (80.0-94.0); MEAN CORPUSCULAR HEMOGLOBIN 24.4 pg (27.0-31.0); MEAN CORPUSCULAR HGB CONC 30.5 g/dL (33.0-37.0); MEAN PLATELET VOLUME 8.1 fL (7.2-11.7); MONO # 0.3 K/uL (0.0-0.8); MONO % 7.7 % (0.0-10.0); NRBC % 0.1 % (0.0-2.0); RED CELL DISTRIBUTION WIDTH 17.6 % (11.5-14.5); WHITE BLOOD COUNT 3.4 K/uL (4.8-10.8)
[2017-01-27 08:46] LABS: CHLORIDE 94 mmol/L (98-107); POTASSIUM 3.6 mmol/L (3.6-5.2); SODIUM 135 mmol/L (132-148)
[2017-01-27 08:49] LABS: ALKALINE PHOSPHATASE 148 U/L (38-126); ALT/SGPT 39 U/L (21-72); AST/SGOT 68 U/L (17-59); BILIRUBIN,TOTAL 0.6 mg/dL (0.2-1.3); BLOOD UREA NITROGEN 7 mg/dL (9-20); CARBON DIOXIDE 28 mmol/L (22-30); GFR AFRICAN-AMERICAN > 60; GLUCOSE,RANDOM 199 mg/dL (75-110)
[2017-01-27 08:50] LABS: CALCIUM 7.3 mg/dl (8.6-10.4)
[2017-01-27] MEDS ORDERED: Potassium Chloride 20 mEq ER Tab PO ONE (09:07)
[2017-01-27] MEDS: cefTRIAXone IV 1 gm in Dextros 50 ML IVPB SCH (10:41)
[2017-01-27] MEDS: Enoxaparin 40 mg Syringe SC SCH (10:41)
--- NOTE | 2017-01-27 16:05 | CP.PCM.PN ---
Subjective - Date & Time of Evaluation Date of Evaluation: 01/27/17 Time of Evaluation: 13:30 - Subjective Subjective: patient seen and examined. Still complaining of productive cough Denies fever or chills, denies chest pain Objective - Vital Signs/Intake and Output Vital Signs (last 24 hours): Temp Pulse Resp BP Pulse Ox 99.2 F 78 20 135/74 95 01/27/17 07:38 01/27/17 07:38 01/27/17 07:38 01/27/17 07:38 01/27/17 07:38 Intake and Output: 01/27/17 01/27/17 06:59 18:59 Intake Total 1050 1300 Balance 1050 1300 - Medications Medications: Current Medications Acetaminophen (Tylenol 325mg Tab) 650 mg PO Q6 PRN PRN Reason: Fever >100.4 F Last Admin: 01/25/17 17:51 Dose: 650 mg Albuterol/Ipratropium (Duoneb 3 Mg/0.5 Mg (3 Ml) Ud) 3 ml INH RQ4 PRN PRN Reason: Shortness of Breath Chlordiazepoxide (Librium) 50 mg PO Q8 [facility] Last Admin: 01/27/17 14:25 Dose: 50 mg Enoxaparin Sodium (Lovenox) 40 mg SC DAILY [facility] Last Admin: 01/27/17 10:41 Dose: 40 mg Famotidine (Pepcid) 20 mg IVP Q12 [facility] Last Admin: 01/27/17 10:47 Dose: 20 mg Folic Acid (Folic Acid) 1 mg PO DAILY [facility] Last Admin: 01/27/17 10:41 Dose: 1 mg Clindamycin Phosphate (Cleocin) 50 mls @ 100 mls/hr IVPB Q8H [facility] Last Admin: 01/27/17 14:25 Dose: 100 mls/hr Sodium Chloride (Sodium Chloride 0.9%) 1,000 mls @ 100 mls/hr IV .Q10H [facility] Last Admin: 01/27/17 10:48 Dose: 100 mls/hr Ceftriaxone Sodium (Rocephin Iv 1 Gm Duplex) 50 mls @ 100 mls/hr IVPB DAILY [facility] Last Admin: 01/27/17 10:41 Dose: 100 mls/hr Ondansetron HCl (Zofran Inj) 4 mg IVP Q4H PRN PRN Reason: Nausea/Vomiting Thiamine HCl (Vitamin B1 Tab) 100 mg PO DAILY [facility] Last Admin: 01/27/17 10:41 Dose: 100 mg - Labs Labs: 01/27/17 08:31 01/27/17 08:31 - Head Exam Head Exam: ATRAUMATIC, NORMOCEPHALIC - Eye Exam Eye Exam: Normal appearance - Respiratory Exam Respiratory Exam: Rales, Rhonchi - Cardiovascular Exam Cardiovascular Exam: REGULAR RHYTHM - GI/Abdominal Exam GI & Abdominal Exam: Soft, Normal Bowel Sounds - Extremities Exam Extremities Exam: Normal Inspection Assessment and Plan (1) Pneumonia Assessment & Plan: continue antibiotics Follow-up chest x-ray Status: Acute
--- NOTE | 2017-01-28 00:38 | CP.PCM.PN ---
Subjective - Date & Time of Evaluation Date of Evaluation: 01/28/17 Time of Evaluation: 00:55 - Subjective Subjective: PGY-[address] Roy's service Pt seen and examined at bedside. No acute events per nursing. Pt continues to c/ o non-productive cough. Tolerating diet, +nausea, no vomit. Reports subjective fevers. +Mild tremor of b/l hands, however improving. Reports hx of chronic diarrhea (one episode overnight). Denies chills, chest pain, SOB, abdominal pain , vomiting, or any additional acute complaints. Objective - Vital Signs/Intake and Output Vital Signs (last 24 hours): Temp Pulse Resp BP Pulse Ox 96.5 F L 60 16 129/88 98 01/27/17 23:47 01/27/17 23:47 01/27/17 23:47 01/27/17 23:47 01/27/17 23:47 Intake and Output: 01/27/17 01/28/17 18:59 06:59 Intake Total 1300 1400 Balance 1300 1400 - Medications Medications: Current Medications Acetaminophen (Tylenol 325mg Tab) 650 mg PO Q6 PRN PRN Reason: Fever >100.4 F Last Admin: 01/25/17 17:51 Dose: 650 mg Albuterol/Ipratropium (Duoneb 3 Mg/0.5 Mg (3 Ml) Ud) 3 ml INH RQ4 PRN PRN Reason: Shortness of Breath Chlordiazepoxide (Librium) 50 mg PO Q8 [facility] Last Admin: 01/27/17 21:26 Dose: 50 mg Enoxaparin Sodium (Lovenox) 40 mg SC DAILY [facility] Last Admin: 01/27/17 10:41 Dose: 40 mg Famotidine (Pepcid) 20 mg IVP Q12 [facility] Last Admin: 01/27/17 21:27 Dose: 20 mg Folic Acid (Folic Acid) 1 mg PO DAILY [facility] Last Admin: 01/27/17 10:41 Dose: 1 mg Clindamycin Phosphate (Cleocin) 50 mls @ 100 mls/hr IVPB Q8H [facility] Last Admin: 01/27/17 22:05 Dose: 100 mls/hr Sodium Chloride (Sodium Chloride 0.9%) 1,000 mls @ 100 mls/hr IV .Q10H [facility] Last Admin: 01/27/17 21:30 Dose: 100 mls/hr Ceftriaxone Sodium (Rocephin Iv 1 Gm Duplex) 50 mls @ 100 mls/hr IVPB DAILY [facility] Last Admin: 01/27/17 10:41 Dose: 100 mls/hr Ondansetron HCl (Zofran Inj) 4 mg IVP Q4H PRN PRN Reason: Nausea/Vomiting Thiamine HCl (Vitamin B1 Tab) 100 mg PO DAILY [facility] Last Admin: 01/27/17 10:41 Dose: 100 mg - Labs Labs: 01/27/17 08:31 01/27/17 08:31 - Additional Findings Additional findings: - Constitutional Appears: Non-toxic, No Acute Distress, Chronically Ill - Head Exam Head Exam: ATRAUMATIC, NORMOCEPHALIC - ENT Exam ENT Exam: Mucous Membranes Moist - Respiratory Exam Respiratory Exam: Rhonchi, NORMAL BREATHING PATTERN +cough, mildly productive - Cardiovascular Exam Cardiovascular Exam: +S1, +S2 - GI/Abdominal Exam GI & Abdominal Exam: Soft, Tenderness (epigastric, mildly improved), Normal Bowel Sounds - Neurological Exam Neurological Exam: Alert, Awake +mild tremor of out stretched arms/hands (-) asterixis - Skin Skin Exam: Dry, Warm Assessment and Plan - Assessment and Plan (Free Text) Assessment: Right lower infiltrate 01/27: Urine culture - negative 01/28: Blood cultures negative x 1day - CXR 01/25 - Interval right basal infiltrate - Nosocomial vs aspiration pneumonia - Afebrile and no leukocytosis - Given 1 dose of Rocephin and Azithromycin in ED - Continue Clindamycin (01/25) and Rocephin (01/25) - Pulmonology consult ([place]) - help appreciated - Cont with current management - Tylenol PRN - Morning labs, f/u Etoh withdrawal 01/28: No signs or symptoms of withdrawal; mild tremor in outstretched hands. - Last drink reportedly last night (01/24) - Librium 50mg Q8H with instructions to give unless sleeping or sedated - Folic acid and thiamine - Zofran PRN - NS at 100 cc/hr Abdominal pain 01/27-01/28: persistent epigastric tenderness, improving. - CT abd/pelvis 01/15 - Re- demonstration of moderate intrahepatic and extrahepatic biliary ductal dilatation. Interval increase in the size of pancreatic head low-attenuation cystic lesions since the previous exam. Moderately dilated main pancreatic duct. Diffuse calcification in the pancreas consistent with chronic pancreatitis. - Abd US 01/14 - Hepatomegaly. Diffuse fatty infiltration of the liver. Mild intrahepatic biliary ductal dilatation. Dilated common bile duct to 11 mm. Possible small gallbladder polyps. No evidence of cholecystitis. Diffuse pancreatic calcification consistent with chronic pancreatitis. 3.7 cm cyst in the pancreatic head increased in size from prior CT examination, possible intrapancreatic pseudocyst. Followup advised to exclude pancreatic cystic neoplasm. Recommend contrast-enhanced CT examination. Pancreatic ductal dilatation - Lipase 26 - Labs WNL, f/u AM labs - Zofran PRN - Pepcid Pneumonia continue Rocephin 1Gm IVPB daily Continue Clindamycin IVPB Q8H CXR - interval R basal infiltrate Hx of HTN - Stable, WNL. - Monitor Hx of COPD - not SOB currently - Duonebs PRN PPX - Lovenox - Pepcid - Zofran PRN - Tylenol PRN
[2017-01-28] MEDS: Sodium Chloride 0.9% 1,000 ML IV SCH ×3 (01:00→21:21)
[2017-01-28] MEDS: Clindamycin 600mg/50ml D5W 50 ML IVPB SCH ×3 (06:02→22:22)
[2017-01-28 06:19] LABS: EOS # 0.2 K/uL (0.0-0.7); HEMATOCRIT 32.9 % (35.0-51.0); LYMPH # 1.4 K/uL (1.0-4.3); LYMPH % 44.1 % (20.0-40.0); MEAN CORPUSCULAR HGB CONC 31.3 g/dL (33.0-37.0); MEAN PLATELET VOLUME 8.2 fL (7.2-11.7); MONO # 0.3 K/uL (0.0-0.8); MONO % 8.7 % (0.0-10.0); RED CELL DISTRIBUTION WIDTH 17.7 % (11.5-14.5); WHITE BLOOD COUNT 3.3 K/uL (4.8-10.8)
[2017-01-28 06:32] LABS: CHLORIDE 99 mmol/L (98-107)
[2017-01-28 06:33] LABS: POTASSIUM 3.8 mmol/L (3.6-5.2); SODIUM 135 mmol/L (132-148)
[2017-01-28 06:35] LABS: AST/SGOT 49 U/L (17-59); BILIRUBIN,TOTAL 0.5 mg/dL (0.2-1.3); CARBON DIOXIDE 25 mmol/L (22-30); GFR AFRICAN-AMERICAN > 60; TOTAL PROTEIN 6.4 g/dL (6.3-8.3)
[2017-01-28 06:36] LABS: ALKALINE PHOSPHATASE 131 U/L (38-126); ALT/SGPT 33 U/L (21-72); BLOOD UREA NITROGEN 8 mg/dL (9-20); CALCIUM 7.6 mg/dl (8.6-10.4); GLUCOSE,RANDOM 117 mg/dL (75-110)
[2017-01-28] MEDS: Enoxaparin 40 mg Syringe SC SCH (10:44)
[2017-01-28] MEDS: cefTRIAXone IV 1 gm in Dextros 50 ML IVPB SCH (10:47)
[2017-01-29] MEDS: Clindamycin 600mg/50ml D5W 50 ML IVPB SCH ×2 (06:42→14:02)
[2017-01-29 07:58] LABS: CHLORIDE 99 mmol/L (98-107); SODIUM 137 mmol/L (132-148)
[2017-01-29 07:59] LABS: BASO % 1.1 % (0.0-2.0); EOS # 0.3 K/uL (0.0-0.7); EOS % 8.8 % (0.0-4.0); HEMATOCRIT 33.9 % (35.0-51.0); LYMPH # 1.4 K/uL (1.0-4.3); LYMPH % 36.3 % (20.0-40.0); MEAN CELL VOLUME 79.4 fL (80.0-94.0); MEAN CORPUSCULAR HGB CONC 31.4 g/dL (33.0-37.0); MEAN PLATELET VOLUME 8.5 fL (7.2-11.7); MONO # 0.4 K/uL (0.0-0.8); MONO % 9.3 % (0.0-10.0); NRBC % 0.1 % (0.0-2.0); RED CELL DISTRIBUTION WIDTH 17.2 % (11.5-14.5)
[2017-01-29 08:00] LABS: AST/SGOT 46 U/L (17-59); BILIRUBIN,TOTAL 0.3 mg/dL (0.2-1.3); CARBON DIOXIDE 26 mmol/L (22-30); GFR AFRICAN-AMERICAN > 60
[2017-01-29 08:01] LABS: ALKALINE PHOSPHATASE 131 U/L (38-126); ALT/SGPT 28 U/L (21-72); BLOOD UREA NITROGEN 6 mg/dL (9-20); CALCIUM 8.3 mg/dl (8.6-10.4); GLUCOSE,RANDOM 115 mg/dL (75-110); TOTAL PROTEIN 6.8 g/dL (6.3-8.3)
[2017-01-29 08:48] VITALS: RESP 20
[2017-01-29] MEDS: Enoxaparin 40 mg Syringe SC SCH (09:37)
[2017-01-29] MEDS: Sodium Chloride 0.9% 1,000 ML IV SCH (09:48)
[2017-01-29] MEDS: cefTRIAXone IV 1 gm in Dextros 50 ML IVPB SCH (09:51)
--- NOTE | 2017-01-29 11:45 | CP.PCM.DIS ---
Provider - Provider Date of Admission: 01/25/17 10:03 Attending physician: Theodore Roy Jr, MD Primary care physician: Manuela Time Spent in preparation of Discharge (in minutes): 31 Hospital Course - Lab Results Lab Results: Most Recent Lab Values WBC 4.0 K/uL (4.8-10.8) L 01/29/17 07:35 RBC 4.26 Mil/uL (4.40-5.90) L 01/29/17 07:35 Hgb 10.6 g/dL (12.0-18.0) L 01/29/17 07:35 Hct 33.9 % (35.0-51.0) L 01/29/17 07:35 MCV 79.4 fL (80.0-94.0) L 01/29/17 07:35 MCH 25.0 pg (27.0-31.0) L 01/29/17 07:35 MCHC 31.4 g/dL (33.0-37.0) L 01/29/17 07:35 RDW 17.2 % (11.5-14.5) H 01/29/17 07:35 Plt Count 154 K/uL (130-400) 01/29/17 07:35 MPV 8.5 fL (7.2-11.7) 01/29/17 07:35 Neut % (Auto) 44.5 % (50.0-75.0) L 01/29/17 07:35 Lymph % (Auto) 36.3 % (20.0-40.0) 01/29/17 07:35 [place] % (Auto) 9.3 % (0.0-10.0) 01/29/17 07:35 Eos % (Auto) 8.8 % (0.0-4.0) H 01/29/17 07:35 Baso % (Auto) 1.1 % (0.0-2.0) 01/29/17 07:35 Neut # 1.8 K/uL (1.8-7.0) 01/29/17 07:35 Lymph # 1.4 K/uL (1.0-4.3) 01/29/17 07:35 [place] # 0.4 K/uL (0.0-0.8) 01/29/17 07:35 Eos # 0.3 K/uL (0.0-0.7) 01/29/17 07:35 Baso # 0.0 K/uL (0.0-0.2) 01/29/17 07:35 Sodium 137 mmol/L (132-148) 01/29/17 07:35 Potassium 4.0 mmol/L (3.6-5.2) 01/29/17 07:35 Chloride 99 mmol/L (98-107) 01/29/17 07:35 Carbon Dioxide 26 mmol/L (22-30) 01/29/17 07:35 Anion Gap 17 (10-20) 01/29/17 07:35 BUN 6 mg/dL (9-20) L 01/29/17 07:35 Creatinine 0.5 MG/DL (0.8-1.5) L 01/29/17 07:35 Est GFR ( Amer) > 60 01/29/17 07:35 Est GFR (Non-Af Amer) > 60 01/29/17 07:35 Random Glucose 115 mg/dL (75-110) H 01/29/17 07:35 Calcium 8.3 mg/dl (8.6-10.4) L 01/29/17 07:35 Total Bilirubin 0.3 mg/dL (0.2-1.3) 01/29/17 07:35 AST 46 U/L (17-59) 01/29/17 07:35 ALT 28 U/L (21-72) 01/29/17 07:35 Alkaline Phosphatase 131 U/L (38-126) H 01/29/17 07:35 Troponin I < 0.0120 ng/mL (0.00-0.120) 01/25/17 08:54 Total Protein 6.8 g/dL (6.3-8.3) 01/29/17 07:35 Albumin 3.4 g/dL (3.5-5.0) L 01/29/17 07:35 Globulin 3.3 gm/dL (2.2-3.9) 01/29/17 07:35 Albumin/Globulin Ratio 1.0 (1.0-2.1) 01/29/17 07:35 Lipase 26 U/L (23-300) 01/25/17 08:54 Urine Color Straw (YELLOW) 01/25/17 11:06 Urine Clarity Clear (Clear) 01/25/17 11:06 Urine pH 7.0 (5.0-8.0) 01/25/17 11:06 Ur Specific [employer] [place] 1.010 (1.003-1.030) 01/25/17 11:06 Urine Protein Negative mg/dL (NEGATIVE) 01/25/17 11:06 Urine Glucose (UA) 1+ mg/dL (Normal) H 01/25/17 11:06 Urine Ketones Negative mg/dL (NEGATIVE) 01/25/17 11:06 Urine Blood Negative (NEGATIVE) 01/25/17 11:06 Urine Nitrate Negative (NEGATIVE) 01/25/17 11:06 Urine Bilirubin Negative (NEGATIVE) 01/25/17 11:06 Urine Urobilinogen Normal mg/dL (0.2-1.0) 01/25/17 11:06 Ur Leukocyte Esterase Neg Senthil/uL (Negative) 01/25/17 11:06 Urine WBC (Auto) < 1 /hpf (0-5) 01/25/17 11:06 Urine RBC (Auto) < 1 /hpf (0-3) 01/25/17 11:06 Ur Squamous Epith Cells < 1 /hpf (0-5) 01/25/17 11:06 Alcohol, Quantitative < 10 mg/dl (0-10) 01/25/17 08:57 - Hospital Course Hospital Course: On hospital admission This is a 51-year-old homeless male, PMHx includes EtOH Abuse, Hypertension, Arthritis, Anxiety COPD, presented to the emergency department after being brought into the ED for public intoxication. Pt is very familiar to ED staff for same complaint and is a poor historian. Pt admits to come epigastric pain that he states he has on and off. It is sharp in nature and does not radiate anywhere else. He was worked up for this ~[address] of the abd/ pelvis. No acute findings were noted. Diffuse calcification of the pancreas noted and consistent with chronic pancreatitis, likely secondary to his Etoh abuse. Pt also admits to a cough that he was not able to clarify as to when it started as it is somewhat chronic in nature which is also consistent with his smoking history. He states it is non-productive, denies fevers, chills, chest pain, palpitations, nausea or vomiting. On hospital course Pt was admitted for a right lower lobe pneumonia seen on X-ray, complicated by alcoholic withdrawal. He was placed on IV antibiotics and librium to prevent withdrawal symptoms. Pt remained afebrile and without any leukocytosis. He continued to improve and was discharged in stable condition with the following antibiotics: Z-brijesh Diagnoses Pneumonia - likely aspiration pneumonia Alcohol withdrawal Abdominal pain - chronic This is a summary of hospital course, please see EMR for details - Date & Time of H&P Date of H&P: 01/25/17 Time of H&P: 13:11 Discharge Exam - Head Exam Head Exam: ATRAUMATIC, NORMOCEPHALIC - Eye Exam Eye Exam: Normal appearance - ENT Exam ENT Exam: Mucous Membranes Moist - Respiratory Exam Respiratory Exam: Clear to PA & Lateral, Rhonchi (mild), NORMAL BREATHING PATTERN, UNREMARKABLE - Cardiovascular Exam Cardiovascular Exam: +S1, +S2 - GI/Abdominal Exam GI & Abdominal Exam: Normal Bowel Sounds, Unremarkable - Neurological Exam Neurological exam: Alert, Oriented x3 - Skin Skin Exam: Dry, Warm Discharge Plan - Discharge Medications Prescriptions: Azithromycin [Z-Brijesh] 250 mg PO DAILY #6 tab - Follow Up Plan Condition: STABLE Disposition: HOME/ ROUTINE Additional Instructions: Take new antibiotics as directed. Follow up with primary care physician within 2 weeks. Referrals: Theodore Roy Jr., MD [Family Provider] -
--- NOTE | 2017-01-29 13:43 | CP.PCM.PN ---
Subjective - Date & Time of Evaluation Date of Evaluation: 01/29/17 Time of Evaluation: 11:25 - Subjective Subjective: patient seen and examined at bed side. Still complaining of productive cough; white phlegm 1-2 times per day. Complains of SOB and cough that he feels are explained by his 40yr smoking history. Predominant complaint is abdominal pain. Complains of some fever and chills, dizziness and lightheadedness Denies painful breathing Objective - Vital Signs/Intake and Output Vital Signs (last 24 hours): Temp Pulse Resp BP Pulse Ox 97.6 F 90 20 115/78 98 01/29/17 08:00 01/29/17 08:00 01/29/17 08:00 01/29/17 08:00 01/29/17 08:00 Intake and Output: 01/29/17 01/29/17 06:59 18:59 Intake Total 2300 Balance 2300 - Medications Medications: Current Medications Acetaminophen (Tylenol 325mg Tab) 650 mg PO Q6 PRN PRN Reason: Fever >100.4 F Last Admin: 01/25/17 17:51 Dose: 650 mg Albuterol/Ipratropium (Duoneb 3 Mg/0.5 Mg (3 Ml) Ud) 3 ml INH RQ4 PRN PRN Reason: Shortness of Breath Chlordiazepoxide (Librium) 50 mg PO Q8 [facility] Last Admin: 01/29/17 06:45 Dose: 50 mg Enoxaparin Sodium (Lovenox) 40 mg SC DAILY [facility] Last Admin: 01/29/17 09:37 Dose: 40 mg Famotidine (Pepcid) 20 mg IVP Q12 [facility] Last Admin: 01/29/17 09:50 Dose: 20 mg Folic Acid (Folic Acid) 1 mg PO DAILY [facility] Last Admin: 01/29/17 09:37 Dose: 1 mg Clindamycin Phosphate (Cleocin) 50 mls @ 100 mls/hr IVPB Q8H [facility] Last Admin: 01/29/17 06:42 Dose: 100 mls/hr Sodium Chloride (Sodium Chloride 0.9%) 1,000 mls @ 100 mls/hr IV .Q10H [facility] Last Admin: 01/29/17 09:48 Dose: 100 mls/hr Ceftriaxone Sodium (Rocephin Iv 1 Gm Duplex) 50 mls @ 100 mls/hr IVPB DAILY [facility] Last Admin: 01/29/17 09:51 Dose: 100 mls/hr Nicotine (Nicoderm Cq) 1 patch TD Q24H [facility] Last Admin: 01/28/17 17:00 Dose: 1 patch Ondansetron HCl (Zofran Inj) 4 mg IVP Q4H PRN PRN Reason: Nausea/Vomiting Last Admin: 01/28/17 06:03 Dose: 4 mg Thiamine HCl (Vitamin B1 Tab) 100 mg PO DAILY [facility] Last Admin: 01/29/17 09:37 Dose: 100 mg - Labs Labs: 01/29/17 07:35 01/29/17 07:35 - Constitutional Appears: Well, No Acute Distress - Head Exam Head Exam: ATRAUMATIC, NORMOCEPHALIC - Respiratory Exam Respiratory Exam: Clear to Ausculation Bilateral, NORMAL BREATHING PATTERN Additional comments: Some crackles consistent with a smoking history - Cardiovascular Exam Cardiovascular Exam: +S1, +S2. absent: Murmur - GI/Abdominal Exam GI & Abdominal Exam: Soft, Tenderness (defuse), Normal Bowel Sounds - Neurological Exam Neurological Exam: Alert, Oriented x3 - Psychiatric Exam Psychiatric exam: Normal Affect, Normal Mood - Skin Skin Exam: Dry, Intact, Normal Color, Warm Assessment and Plan (1) Pneumonia Assessment & Plan: chest x-ray 01/25/2017: internal R base infiltrate repeat chest x-ray continue antibiotics Continue nebulizer treatment. monitor for shortness of breath, dyspnea, productive cough (if it continues), and fever afebrial Urine and blood cultures negative Resident with Dr. Roy informed about abdominal pain Status: Acute
[2017-01-29 16:20] VITALS: BP 129/82; PULSE 81; TEMP 97.7; O2SAT 97
== END 2017-01-29 06:45 | disposition home or self-care (01) | DRG 541 ==
LOC: C.ER 06:47 → C.9OBSV 07:30 → C.9E 10:03 → OBSVTOIN 10:03 → C.3T 16:14
PROVIDERS: ADMIT Internal Medicine; ATTEND Internal Medicine
DX: J44.0 Chronic obstructive pulmonary disease with (acute) lower respiratory infection (principal); J69.0 Pneumonitis due to inhalation of food and vomit; K76.0 Fatty (change of) liver, not elsewhere classified; F10.239 Alcohol dependence with withdrawal, unspecified; K86.0 Alcohol-induced chronic pancreatitis; K86.1 Other chronic pancreatitis; I10 Essential (primary) hypertension; M19.90 Unspecified osteoarthritis, unspecified site; F17.210 Nicotine dependence, cigarettes, uncomplicated; G89.29 Other chronic pain; E11.9 Type 2 diabetes mellitus without complications; K52.9 Noninfective gastroenteritis and colitis, unspecified; Z59.0 Homelessness; Z87.01 Personal history of pneumonia (recurrent)

== ENCOUNTER 2017-02-02 10:13 | Observation (INO) | payer OTHER ==
[2017-02-02 10:13] VITALS: BMI 19.8
--- NOTE | 2017-02-02 12:37 | C.PDOC ---
History Of Present Illness 51-year-old male, PMHx includes EtOH Abuse, brought to the emergency department by BLS with complaints of public intoxication. Patient denies any physical complaints at this time. Time Seen by Provider: 02/02/17 10:21 Chief Complaint (Nursing): Substance Abuse History Per: Patient, EMS History/Exam Limitations: intoxication Current Symptoms Are (Timing): Still Present Modifying Factor(s): Alcohol Severity: Moderate Past Medical History Reviewed: Historical Data, Nursing Documentation, Vital Signs Vital Signs: Last Vital Signs Temp 97.5 F L 02/02/17 16:18 Pulse 80 02/02/17 16:18 Resp 18 02/02/17 16:18 BP 157/86 H 02/02/17 16:18 Pulse Ox 91 L 02/02/17 16:18 - Medical History PMH: Anxiety, Arthritis, COPD, Depression, HTN, Pancreatitis, Pneumonia, Seizures Surgical History: - [facility] Procedures ALCOHOL DETOXIFICATION (07/31/14) DETOXIFICATION SERVICES FOR SUBSTANCE ABUSE TREATMENT (12/02/16) EXCISION OF SMALL INTESTINE, ENDO, DIAGN (12/02/16) INFLUENZA VACCINATION (10/21/13) INJECT/INFUSE ELECTROLYT (05/15/13) INJECT/INFUSE NEC (10/02/14) INSERT INTERCOSTAL CATH (01/22/15) INSERTION OF INFUSION DEV INTO SUP VENA CAVA, PERC APPROACH (12/02/16) LINEAR REP LID LACER (11/07/14) OTHER GROUP THERAPY (06/07/13) TETANUS TOXOID ADMINIST (11/07/14) THORACOSCOPIC DECORTICATION OF LUNG (01/22/15) TRANSFUSE NONAUT PLATELETS IN PERIPH VEIN, PERC (06/29/16) VACCINATION NEC (02/18/15) Family History: States: No Known Family Hx - Social History Hx Tobacco Use: Yes Hx Alcohol Use: Yes Hx Substance Use: Yes - Immunization History Hx Tetanus Toxoid Vaccination: No Hx Influenza Vaccination: No Hx Pneumococcal Vaccination: No Review Of Systems Review Of Systems: ROS cannot be obtained secondary to pt's inabilty to answer questions. Gastrointestinal: Negative for: Vomiting Psych: Negative for: Suicidal ideation Physical Exam - Physical Exam Appears: Non-toxic, Unkempt, Other (EtOH on breath. malodorous) Skin: Warm, Dry Head: Atraumatic, Normacephalic Eye(s): bilateral: Normal Inspection Oral Mucosa: Moist Neck: Normal, Normal ROM Chest: Symmetrical Cardiovascular: Rhythm Regular Respiratory: Normal Breath Sounds, No Accessory Muscle Use, No Rales, No Rhonchi , No Wheezing Gastrointestinal/Abdominal: Normal Exam, Bowel Sounds, Soft, No Tenderness Neurological/Psych: Other (awake, alert, intoxicated, moving all 4 extremities spontaneously) ED Course And Treatment O2 Sat by Pulse Oximetry: 96 (RA) Pulse Ox Interpretation: Normal Progress Note: Accucheck ordered and reviewed. Patient placed in ED observation pending sobriety. 2:15pm- Patient arousable to verbal stimuli, in no distress. Reevaluation Time: 18:30 Reassessment Condition: Improved (Patient reassessed, much more awake and alert , but is unsteady when ambulates.) Disposition - Disposition Disposition Time: 19:00 Condition: STABLE - Clinical Impression Clinical Impression: Alcohol abuse with intoxication - Scribe Statement The provider has reviewed the documentation as recorded by the James Foreman Provider Attestation: All medical record entries made by the James were at my direction and personally dictated by me. I have reviewed the chart and agree that the record accurately reflects my personal performance of the history, physical exam, medical decision making, and the department course for this patient. I have also personally directed, reviewed, and agree with the discharge instructions and disposition. Physician Patient Turnover Patient Signed Over To: Ciara Olguin Handoff Comments: pending sobriety
[2017-02-03 02:45] VITALS: RESP 20
[2017-02-03 05:59] VITALS: BP 149/69; PULSE 84; TEMP 98.3; O2SAT 97
== END 2017-02-03 05:25 | disposition home or self-care (01) ==
LOC: C.ER 10:13 → C.9OBSV 10:39
PROVIDERS: ADMIT Emergency Medicine; ATTEND Emergency Medicine
DX: F10.229 Alcohol dependence with intoxication, unspecified (principal); J44.9 Chronic obstructive pulmonary disease, unspecified; I10 Essential (primary) hypertension; R56.9 Unspecified convulsions; M19.90 Unspecified osteoarthritis, unspecified site
CPT/HCPCS: 82948; 99285; G0378

== ENCOUNTER 2017-02-06 00:03 | Emergency (ER) | payer OTHER ==
[2017-02-06 00:04] VITALS: BMI 19.8
[2017-02-06 00:24] VITALS: RESP 16; O2SAT 95
--- NOTE | 2017-02-06 01:41 | C.PDOC ---
History Of Present Illness 51 year old patient presents to the ED for acute alcohol intoxication. Patient is well known in the ED and to the staff for this complaint. Patient admits to drinking alcohol prior to arrival. Patient denies chest pain, shortness of breath, vomiting, abdominal pain, suicidal or homicidal ideation. Time Seen by Provider: 02/06/17 00:42 Chief Complaint (Nursing): Substance Abuse History Per: Patient History/Exam Limitations: intoxication Onset/Duration Of Symptoms: Other Suicide/Self Injury Attempted (Context): None Modifying Factor(s): Alcohol Recent travel outside of the [place]: No Additional History Per: Prior Records Past Medical History Reviewed: Historical Data, Nursing Documentation, Vital Signs Vital Signs: Last Vital Signs Temp 98.5 F 02/06/17 04:55 Pulse 93 H 02/06/17 04:55 Resp 16 02/06/17 04:55 BP 110/55 L 02/06/17 04:55 Pulse Ox 95 02/06/17 04:55 - Medical History PMH: Anxiety, Arthritis, COPD, Depression, HTN, Pancreatitis, Pneumonia, Seizures Surgical History: - [facility] Procedures ALCOHOL DETOXIFICATION (07/31/14) DETOXIFICATION SERVICES FOR SUBSTANCE ABUSE TREATMENT (12/02/16) EXCISION OF SMALL INTESTINE, ENDO, DIAGN (12/02/16) INFLUENZA VACCINATION (10/21/13) INJECT/INFUSE ELECTROLYT (05/15/13) INJECT/INFUSE NEC (10/02/14) INSERT INTERCOSTAL CATH (01/22/15) INSERTION OF INFUSION DEV INTO SUP VENA CAVA, PERC APPROACH (12/02/16) LINEAR REP LID LACER (11/07/14) OTHER GROUP THERAPY (06/07/13) TETANUS TOXOID ADMINIST (11/07/14) THORACOSCOPIC DECORTICATION OF LUNG (01/22/15) TRANSFUSE NONAUT PLATELETS IN PERIPH VEIN, PERC (06/29/16) VACCINATION NEC (02/18/15) Family History: States: Unknown Family Hx - Social History Hx Tobacco Use: Yes Hx Alcohol Use: Yes Hx Substance Use: Yes (DENIED) - Immunization History Hx Tetanus Toxoid Vaccination: No Hx Influenza Vaccination: No Hx Pneumococcal Vaccination: No Review Of Systems Except As Marked, All Systems Reviewed And Found Negative. Cardiovascular: Negative for: Chest Pain Respiratory: Negative for: Shortness of Breath Gastrointestinal: Negative for: Vomiting, Abdominal Pain Psych: Negative for: Suicidal ideation Physical Exam - Physical Exam Appears: Non-toxic, No Acute Distress, Other (EtOH on breath) Skin: Warm, Dry Head: Atraumatic, Normacephalic Neck: Normal ROM, Supple Chest: Symmetrical Cardiovascular: Rhythm Regular Respiratory: Normal Breath Sounds, No Rales, No Rhonchi, No Wheezing Gastrointestinal/Abdominal: Soft, No Tenderness, No Guarding, No Rebound Back: Normal Inspection, No CVA Tenderness Extremity: Normal ROM ED Course And Treatment O2 Sat by Pulse Oximetry: 95 (RA) Pulse Ox Interpretation: Normal Medical Decision Making Medical Decision Making: Pt alert verbal steady gait Stable for discharge Disposition - Disposition Referrals: [facility] [Outside] Disposition: HOME/ ROUTINE Disposition Time: 05:16 Condition: FAIR Forms: General Discharge Instructions - Clinical Impression Clinical Impression: Homelessness, Alcohol abuse - Scribe Statement The provider has reviewed the documentation as recorded by the Scribe Nena Reed Provider Attestation: All medical record entries made by the Scribe were at my direction and personally dictated by me. I have reviewed the chart and agree that the record accurately reflects my personal performance of the history, physical exam, medical decision making, and the department course for this patient. I have also personally directed, reviewed, and agree with the discharge instructions and disposition.
[2017-02-06 04:57] VITALS: BP 110/55; PULSE 93; TEMP 98.5
== END 2017-02-06 06:00 | disposition home or self-care (01) ==
LOC: C.ER 00:03
DX: F10.10 Alcohol abuse, uncomplicated (principal); Y90.9 Presence of alcohol in blood, level not specified; Z59.0 Homelessness

== ENCOUNTER 2017-02-12 13:22 | Emergency (ER) | payer OTHER ==
[2017-02-12 13:23] VITALS: BMI 19.8
[2017-02-12 13:29] VITALS: BP 140/78; PULSE 93; RESP 20; TEMP 98.9; O2SAT 95
--- NOTE | 2017-02-12 14:12 | C.PDOC ---
History Of Present Illness 51 year old homeless male with a history of alcohol abuse, presents to the ED via EMS for malingering. Patient states he has not had any alcohol today and states he stayed in the half-way last night and walked around town but is now unable to walk. He is well known to the ED and always walks out on his own volition. Time Seen by Provider: 02/12/17 14:09 Chief Complaint (Nursing): Substance Abuse History Per: Patient, EMS History/Exam Limitations: no limitations Onset/Duration Of Symptoms: Hrs Current Symptoms Are (Timing): Still Present Past Medical History Reviewed: Historical Data, Nursing Documentation, Vital Signs Vital Signs: Last Vital Signs Temp 98.9 F 02/12/17 13:25 Pulse 93 H 02/12/17 13:25 Resp 20 02/12/17 13:25 BP 140/78 02/12/17 13:25 Pulse Ox 95 02/12/17 14:29 - Medical History PMH: Anxiety, Arthritis, COPD, Depression, HTN, Pancreatitis, Pneumonia, Seizures Surgical History: - [facility] Procedures ALCOHOL DETOXIFICATION (07/31/14) DETOXIFICATION SERVICES FOR SUBSTANCE ABUSE TREATMENT (12/02/16) EXCISION OF SMALL INTESTINE, ENDO, DIAGN (12/02/16) INFLUENZA VACCINATION (10/21/13) INJECT/INFUSE ELECTROLYT (05/15/13) INJECT/INFUSE NEC (10/02/14) INSERT INTERCOSTAL CATH (01/22/15) INSERTION OF INFUSION DEV INTO SUP VENA CAVA, PERC APPROACH (12/02/16) LINEAR REP LID LACER (11/07/14) OTHER GROUP THERAPY (06/07/13) TETANUS TOXOID ADMINIST (11/07/14) THORACOSCOPIC DECORTICATION OF LUNG (01/22/15) TRANSFUSE NONAUT PLATELETS IN PERIPH VEIN, PERC (06/29/16) VACCINATION NEC (02/18/15) Family History: States: Unknown Family Hx - Social History Hx Tobacco Use: Yes Hx Alcohol Use: Yes Hx Substance Use: Yes (DENIED) - Immunization History Hx Tetanus Toxoid Vaccination: No Hx Influenza Vaccination: No Hx Pneumococcal Vaccination: No Review Of Systems Except As Marked, All Systems Reviewed And Found Negative. Constitutional: Negative for: Fever, Chills Cardiovascular: Negative for: Chest Pain Respiratory: Negative for: Shortness of Breath Physical Exam - Physical Exam Appears: Non-toxic, No Acute Distress, Unkempt, Other (+Foul smelling + Incontinent of urine and stool) Skin: Warm, Dry Head: Atraumatic, Normacephalic Eye(s): bilateral: Normal Inspection Oral Mucosa: Moist Chest: Symmetrical Respiratory: No Accessory Muscle Use Extremity: Normal ROM Neurological/Psych: Oriented x3 ED Course And Treatment O2 Sat by Pulse Oximetry: 95 (Room air) Pulse Ox Interpretation: Normal Progress Note: Patient ambulated to the bathroom with a steady gait. Medical Decision Making Medical Decision Making: homeless, alcoholic, walked today from half-way well known from many prior ED evals for same- appears at baseline recent labs reviewed- baseline mild anemia stable. agrees to go to [facility]. Disposition Doctor Will See Patient In The: Office Counseled Patient/Family Regarding: Studies Performed, Diagnosis - Disposition Referrals: Alcoholics Anonymous [Outside] [facility] [Outside] [facility] [Outside] Disposition: HOME/ ROUTINE Disposition Time: 14:26 Condition: GOOD Additional Instructions: please go to local [facility], as directed. Instructions: Abuse of Alcohol (ED) - Clinical Impression Clinical Impression: Alcohol abuse, Homelessness - Scribe Statement The provider has reviewed the documentation as recorded by the Scribe Soraida Saunders. Provider Attestation: All medical record entries made by the Scribe were at my direction and personally dictated by me. I have reviewed the chart and agree that the record accurately reflects my personal performance of the history, physical exam, medical decision making, and the department course for this patient. I have also personally directed, reviewed, and agree with the discharge instructions and disposition.
== END 2017-02-12 15:17 | disposition home or self-care (01) ==
LOC: C.ER 13:22
DX: F10.10 Alcohol abuse, uncomplicated (principal); Y90.9 Presence of alcohol in blood, level not specified; Z59.0 Homelessness

== ENCOUNTER 2017-02-13 00:02 | Observation (INO) | payer OTHER ==
[2017-02-13 00:03] VITALS: BMI 19.8
--- NOTE | 2017-02-13 00:44 | C.PDOC ---
History Of Present Illness 51 year old patient brought to the ED by ambulance for acute alcohol intoxication. Patient is well known in the ED for this complaint. Patient admits to drinking alcohol prior to arrival. He has no physical complaints. Time Seen by Provider: 02/13/17 00:19 Chief Complaint (Nursing): Substance Abuse History Per: EMS History/Exam Limitations: intoxication Suicide/Self Injury Attempted (Context): None Modifying Factor(s): Alcohol Additional History Per: Prior Records Past Medical History Reviewed: Historical Data, Nursing Documentation, Vital Signs Vital Signs: Last Vital Signs Temp 97.9 F 02/13/17 06:00 Pulse 72 02/13/17 06:00 Resp 20 02/13/17 06:00 BP 111/69 02/13/17 06:00 Pulse Ox 97 02/13/17 06:00 - Medical History PMH: Anxiety, Arthritis, COPD, Depression, HTN, Pancreatitis, Pneumonia, Seizures Surgical History: - [facility] Procedures ALCOHOL DETOXIFICATION (07/31/14) DETOXIFICATION SERVICES FOR SUBSTANCE ABUSE TREATMENT (12/02/16) EXCISION OF SMALL INTESTINE, ENDO, DIAGN (12/02/16) INFLUENZA VACCINATION (10/21/13) INJECT/INFUSE ELECTROLYT (05/15/13) INJECT/INFUSE NEC (10/02/14) INSERT INTERCOSTAL CATH (01/22/15) INSERTION OF INFUSION DEV INTO SUP VENA CAVA, PERC APPROACH (12/02/16) LINEAR REP LID LACER (11/07/14) OTHER GROUP THERAPY (06/07/13) TETANUS TOXOID ADMINIST (11/07/14) THORACOSCOPIC DECORTICATION OF LUNG (01/22/15) TRANSFUSE NONAUT PLATELETS IN PERIPH VEIN, PERC (06/29/16) VACCINATION NEC (02/18/15) Family History: States: No Known Family Hx - Social History Hx Tobacco Use: Yes Hx Alcohol Use: Yes Hx Substance Use: No (DENIED) - Immunization History Hx Tetanus Toxoid Vaccination: No Hx Influenza Vaccination: No Hx Pneumococcal Vaccination: No Review Of Systems Except As Marked, All Systems Reviewed And Found Negative. Constitutional: Positive for: Other (alcohol intoxication) Cardiovascular: Negative for: Chest Pain Respiratory: Negative for: Shortness of Breath Gastrointestinal: Negative for: Nausea, Vomiting, Abdominal Pain, Diarrhea Psych: Negative for: Suicidal ideation Physical Exam - Physical Exam Appears: Non-toxic, No Acute Distress, Other (EtOH on breath) Skin: Warm, Dry Head: Atraumatic, Normacephalic Eye(s): bilateral: Normal Inspection Oral Mucosa: Moist Neck: Supple Cardiovascular: Rhythm Regular Respiratory: Normal Breath Sounds, No Rales, No Rhonchi, No Wheezing Gastrointestinal/Abdominal: Normal Exam, Bowel Sounds, Soft, No Tenderness Extremity: Normal ROM Extremity: Bilateral: Atraumatic, Normal Color And Temperature, Normal ROM Neurological/Psych: Other (awake, alert, intoxicated, moving all 4 extremities) ED Course And Treatment O2 Sat by Pulse Oximetry: 97 (RA) Pulse Ox Interpretation: Normal Progress Note: Accucheck ordered and reviewed. Patient placed in ED observation , pending sobriety. 3:10am- Patient arousable to verbal stimuli, pending sobriety. Reevaluation Time: 06:30 Reassessment Condition: Improved (Patient reassessed, is AAOx3, ambulating normally in ED. Patient clinically sober at this time, will discharge.) Disposition - Disposition Disposition: HOME/ ROUTINE Disposition Time: 06:10 Condition: STABLE - POA Present On Arrival: None - Clinical Impression Clinical Impression: Alcohol abuse with intoxication - Scribe Statement The provider has reviewed the documentation as recorded by the Scribe Nena Reed Provider Attestation: All medical record entries made by the Scribe were at my direction and personally dictated by me. I have reviewed the chart and agree that the record accurately reflects my personal performance of the history, physical exam, medical decision making, and the department course for this patient. I have also personally directed, reviewed, and agree with the discharge instructions and disposition.
[2017-02-13 06:18] VITALS: BP 111/69; PULSE 72; RESP 20; TEMP 97.9; O2SAT 97
== END 2017-02-13 06:08 | disposition home or self-care (01) ==
LOC: C.ER 00:02 → C.9OBSV 00:50
PROVIDERS: ADMIT Emergency Medicine; ATTEND Emergency Medicine
DX: F10.120 Alcohol abuse with intoxication, uncomplicated (principal); Y90.9 Presence of alcohol in blood, level not specified
CPT/HCPCS: 82948; 99284; G0378

== ENCOUNTER 2017-02-26 20:23 | Observation (INO) | payer OTHER ==
[2017-02-26 20:23] VITALS: BMI 19.8
--- NOTE | 2017-02-26 21:26 | C.PDOC ---
History Of Present Illness The patient presents to the for evaluation of alcohol intoxication for an unknown duration. He admits to drinking earlier. Patient denies suicidal/ homicidal ideation and has no physical complaints at this time. Time Seen by Provider: 02/26/17 21:26 History Per: Patient History/Exam Limitations: intoxication Onset/Duration Of Symptoms: Unknown Current Symptoms Are (Timing): Still Present Suicide/Self Injury Attempted (Context): None Modifying Factor(s): Alcohol Severity: Mild Pain Scale Rating Of: 3 Associated Symptoms: denies: Suicidal Thoughts, Suicidal Plan Involuntary Hold By: None Recent travel outside of the [place]: No Additional History Per: Patient Past Medical History Reviewed: Historical Data, Nursing Documentation, Vital Signs Vital Signs: Last Vital Signs Temp 99 F 02/26/17 21:34 Pulse 118 H 02/26/17 21:34 Resp 20 02/26/17 21:34 BP 142/77 02/26/17 21:34 Pulse Ox 96 02/26/17 21:34 - Medical History PMH: Anxiety, Arthritis, COPD, Depression, HTN, Pancreatitis, Pneumonia, Seizures Denies: HIV, Chronic Kidney Disease Surgical History: - [facility] Procedures ALCOHOL DETOXIFICATION (07/31/14) DETOXIFICATION SERVICES FOR SUBSTANCE ABUSE TREATMENT (12/02/16) EXCISION OF SMALL INTESTINE, ENDO, DIAGN (12/02/16) INFLUENZA VACCINATION (10/21/13) INJECT/INFUSE ELECTROLYT (05/15/13) INJECT/INFUSE NEC (10/02/14) INSERT INTERCOSTAL CATH (01/22/15) INSERTION OF INFUSION DEV INTO SUP VENA CAVA, PERC APPROACH (12/02/16) LINEAR REP LID LACER (11/07/14) OTHER GROUP THERAPY (06/07/13) TETANUS TOXOID ADMINIST (11/07/14) THORACOSCOPIC DECORTICATION OF LUNG (01/22/15) TRANSFUSE NONAUT PLATELETS IN PERIPH VEIN, PERC (06/29/16) VACCINATION NEC (02/18/15) Family History: States: Unknown Family Hx - Social History Hx Tobacco Use: Yes Hx Alcohol Use: Yes Hx Substance Use: No (DENIED) - Immunization History Hx Tetanus Toxoid Vaccination: No Hx Influenza Vaccination: No Hx Pneumococcal Vaccination: No Review Of Systems Constitutional: Positive for: Other (+alcohol intoxication ). Negative for: Fever, Chills Cardiovascular: Negative for: Chest Pain Respiratory: Negative for: Cough, Shortness of Breath Gastrointestinal: Negative for: Nausea, Vomiting, Diarrhea, Constipation Genitourinary: Positive for: Incontinence (fecal ) Skin: Negative for: Rash, Lesions, Jaundice, Bruising Neurological: Negative for: Weakness, Numbness Physical Exam - Physical Exam Appears: No Acute Distress, Other (visibly intoxicated) Skin: Warm, Dry Eye(s): bilateral: Normal Inspection Oral Mucosa: Moist, Other (alcohol on breath ) Neck: Supple Chest: Symmetrical, No Deformity, No Tenderness Cardiovascular: Rhythm Regular, No Murmur Respiratory: No Rales, No Rhonchi, No Wheezing Back: No Vertebral Tenderness, No Paraspinal Tenderness Extremity: Normal ROM, Capillary Refill (less than 2 seconds ) Neurological/Psych: Other (arousable to touch and verbal stimuli ) Gait: Unsteady ED OBSERVATION Discharge: Yes Date of observation admission: 02/26/17 Time of observation admission: 21:29 - Observation admission statement Patient is being placed in observation because:: acute alcohol intoxication - Goals of Observation Goals of observation are:: sobriety - Progress Note Progress Note: 02/26/17 21:29 vitals stable, no complaints 02/26/17 23:29 no complaints Disposition Counseled Patient/Family Regarding: Studies Performed, Diagnosis - Disposition Disposition: HOME/ ROUTINE Disposition Time: 21:26 Condition: GOOD - Clinical Impression Clinical Impression: Alcohol intoxication, Alcohol abuse - Scribe Statement The provider has reviewed the documentation as recorded by the Scribe (Dorie Reed) Provider Attestation: All medical record entries made by the Scribe were at my direction and personally dictated by me. I have reviewed the chart and agree that the record accurately reflects my personal performance of the history, physical exam, medical decision making, and the department course for this patient. I have also personally directed, reviewed, and agree with the discharge instructions and disposition.
[2017-02-26 21:35] VITALS: BP 142/77; PULSE 118; RESP 20; TEMP 99; O2SAT 96
== END 2017-02-27 05:30 | disposition home or self-care (01) ==
LOC: C.ER 20:23 → C.9OBSV 21:28
PROVIDERS: ADMIT Emergency Medicine; ATTEND Emergency Medicine
DX: F10.129 Alcohol abuse with intoxication, unspecified (principal); Z87.891 Personal history of nicotine dependence; J44.9 Chronic obstructive pulmonary disease, unspecified; Y90.9 Presence of alcohol in blood, level not specified
CPT/HCPCS: 82948; 99282; G0378

== ENCOUNTER 2017-03-08 09:36 | Observation (INO) | payer OTHER ==
[2017-03-08 09:39] VITALS: BMI 19.8
--- NOTE | 2017-03-08 10:23 | C.PDOC ---
History Of Present Illness 51 y/o male brought to ED by EMS for public intoxication. Patient with multiple prior visits with similar presentation, typically with unexplained fecal incontinence. Patient arrives to ED with slurred speech and slightly unsteady gait, with fecal odor, and disheveled appearance; patient admits to EtOH use. Denies any injuries or trauma. No other medical complaints reported. Time Seen by Provider: 03/08/17 09:58 Chief Complaint (Nursing): Substance Abuse History Per: Patient History/Exam Limitations: no limitations Current Symptoms Are (Timing): Still Present Modifying Factor(s): Alcohol Recent travel outside of the [place]: No Past Medical History Reviewed: Historical Data, Nursing Documentation, Vital Signs Vital Signs: Last Vital Signs Temp Pulse 85 03/08/17 09:44 Resp 16 03/08/17 09:44 BP 120/80 03/08/17 09:44 Pulse Ox 93 L 03/08/17 11:07 - Medical History PMH: Anxiety, Arthritis, COPD, Depression, HTN, Pancreatitis, Pneumonia, Seizures Surgical History: - [facility] Procedures ALCOHOL DETOXIFICATION (07/31/14) DETOXIFICATION SERVICES FOR SUBSTANCE ABUSE TREATMENT (12/02/16) EXCISION OF SMALL INTESTINE, ENDO, DIAGN (12/02/16) INFLUENZA VACCINATION (10/21/13) INJECT/INFUSE ELECTROLYT (05/15/13) INJECT/INFUSE NEC (10/02/14) INSERT INTERCOSTAL CATH (01/22/15) INSERTION OF INFUSION DEV INTO SUP VENA CAVA, PERC APPROACH (12/02/16) LINEAR REP LID LACER (11/07/14) OTHER GROUP THERAPY (06/07/13) TETANUS TOXOID ADMINIST (11/07/14) THORACOSCOPIC DECORTICATION OF LUNG (01/22/15) TRANSFUSE NONAUT PLATELETS IN PERIPH VEIN, PERC (06/29/16) VACCINATION NEC (02/18/15) Family History: States: Unknown Family Hx - Social History Hx Tobacco Use: Yes Hx Alcohol Use: Yes Hx Substance Use: No (DENIED) - Immunization History Hx Tetanus Toxoid Vaccination: No Hx Influenza Vaccination: No Hx Pneumococcal Vaccination: No Review Of Systems Constitutional: Positive for: Other (ROS limited by intoxication). Negative for : Fever Cardiovascular: Negative for: Chest Pain Respiratory: Negative for: Shortness of Breath Gastrointestinal: Negative for: Vomiting Skin: Negative for: Rash Physical Exam - Physical Exam Appears: Non-toxic, Unkempt, Other (disheveled, strong fecal odor, slurred speech, slightly unsteady gait) Skin: Warm, Dry Head: Atraumatic, Normacephalic Chest: Symmetrical Cardiovascular: Rhythm Regular Respiratory: Normal Breath Sounds, No Rales, No Rhonchi, No Wheezing Gastrointestinal/Abdominal: Soft, No Tenderness Back: Normal Inspection Extremity: Other (venous stasis changes) Extremity: Bilateral: Atraumatic Neurological/Psych: Oriented x3 Gait: Unsteady (walks with assistance) ED Course And Treatment O2 Sat by Pulse Oximetry: 93 Medical Decision Making Medical Decision Making: Patient has hx of alcohol abuse. He has no signs of trauma. Currently has no complaints and is resting comfortably. He was showered by building energy retrofit technician and hourly sales staff. FS:93. 10:45 Resting comfortably. Will reeval when sober 12:31PM Resting comfortably. Will continue to monitor 1:00PM Will sign out to Harjeet Bennett MD to follow-up, monitor and reeval when sober ED OBSERVATION Date of observation admission: 03/08/17 Time of observation admission: 10:46 - Observation admission statement Patient is being placed in observation because:: alcohol intoxication - Goals of Observation Goals of observation are:: monitoring and reevaluation when sober Disposition - Disposition Disposition Time: 10:46 Condition: FAIR - Clinical Impression Clinical Impression: Drug dependence, Alcohol intoxication, Alcohol abuse - Scribe Statement The provider has reviewed the documentation as recorded by the James Milton Provider Scribe Attestation: All medical record entries made by the James were at my direction and personally dictated by me. I have reviewed the chart and agree that the record accurately reflects my personal performance of the history, physical exam, medical decision making, and the department course for this patient. I have also personally directed, reviewed, and agree with the discharge instructions and disposition.
[2017-03-08 16:43] VITALS: BP 131/71; PULSE 80; RESP 20; TEMP 97.8; O2SAT 92
== END 2017-03-08 17:37 | disposition home or self-care (01) ==
LOC: C.ER 09:36 → C.9OBSV 10:46
PROVIDERS: ADMIT Emergency Medicine; ATTEND Emergency Medicine
DX: F10.129 Alcohol abuse with intoxication, unspecified (principal); F19.20 Other psychoactive substance dependence, uncomplicated; Y90.9 Presence of alcohol in blood, level not specified
CPT/HCPCS: 82948; G0378

== ENCOUNTER 2017-03-09 00:37 | Emergency (ER) | payer OTHER ==
[2017-03-09 00:37] VITALS: BMI 19.8
[2017-03-09 00:47] VITALS: O2SAT 98
--- NOTE | 2017-03-09 00:50 | C.PDOC ---
History Of Present Illness Patient presents to the emergency room looking for a place to stay. Patient is homeless and just wants a place to sleep tonight. Patient denies any complaints. Time Seen by Provider: 03/09/17 00:49 Chief Complaint (Nursing): Substance Abuse History Per: Patient History/Exam Limitations: no limitations Onset/Duration Of Symptoms: Hrs Current Symptoms Are (Timing): Still Present Suicide/Self Injury Attempted (Context): None Modifying Factor(s): None Severity: None Associated Symptoms: denies: Suicidal Thoughts, Suicidal Plan Recent travel outside of the [place]: No Past Medical History Reviewed: Historical Data, Nursing Documentation, Vital Signs Vital Signs: Last Vital Signs Temp 97.6 F 03/09/17 00:44 Pulse 73 03/09/17 00:44 Resp 18 03/09/17 00:44 BP 121/75 03/09/17 00:44 Pulse Ox 98 03/09/17 01:59 - Medical History PMH: Anxiety, Arthritis, COPD, Depression, HTN, Pancreatitis, Pneumonia, Seizures Surgical History: - [facility] Procedures ALCOHOL DETOXIFICATION (07/31/14) DETOXIFICATION SERVICES FOR SUBSTANCE ABUSE TREATMENT (12/02/16) EXCISION OF SMALL INTESTINE, ENDO, DIAGN (12/02/16) INFLUENZA VACCINATION (10/21/13) INJECT/INFUSE ELECTROLYT (05/15/13) INJECT/INFUSE NEC (10/02/14) INSERT INTERCOSTAL CATH (01/22/15) INSERTION OF INFUSION DEV INTO SUP VENA CAVA, PERC APPROACH (12/02/16) LINEAR REP LID LACER (11/07/14) OTHER GROUP THERAPY (06/07/13) TETANUS TOXOID ADMINIST (11/07/14) THORACOSCOPIC DECORTICATION OF LUNG (01/22/15) TRANSFUSE NONAUT PLATELETS IN PERIPH VEIN, PERC (06/29/16) VACCINATION NEC (02/18/15) Family History: States: Unknown Family Hx - Social History Hx Tobacco Use: Yes Hx Alcohol Use: Yes Hx Substance Use: No (DENIED) - Immunization History Hx Tetanus Toxoid Vaccination: No Hx Influenza Vaccination: No Hx Pneumococcal Vaccination: No Review Of Systems Constitutional: Positive for: Other (Homeless - wants a place to stay. ). Negative for: Fever, Chills Gastrointestinal: Negative for: Nausea, Vomiting, Diarrhea Physical Exam - Physical Exam Appears: Non-toxic, No Acute Distress Skin: Warm, Dry, No Rash Extremity: Normal ROM, No Tenderness Neurological/Psych: Oriented x3, Normal Speech, Normal Cognition ED Course And Treatment O2 Sat by Pulse Oximetry: 98 Pulse Ox Interpretation: Normal Reevaluation Time: 05:39 Reassessment Condition: Improved Disposition Counseled Patient/Family Regarding: Studies Performed, Diagnosis, Need For Followup - Disposition Referrals: [facility] [Outside] Disposition: HOME/ ROUTINE Disposition Time: 00:50 Condition: FAIR Instructions: Alcohol Intoxication (DC) - Clinical Impression Clinical Impression: Alcohol abuse - Scribe Statement The provider has reviewed the documentation as recorded by the Scribe Homer Campos All medical record entries made by the Yocastaibe were at my direction and personally dictated by me. I have reviewed the chart and agree that the record accurately reflects my personal performance of the history, physical exam, medical decision making, and the department course for this patient. I have also personally directed, reviewed, and agree with the discharge instructions and disposition.
[2017-03-09 06:29] VITALS: BP 130/82; PULSE 76; RESP 20; TEMP 98
== END 2017-03-09 06:27 | disposition home or self-care (01) ==
LOC: C.ER 00:37 → SUPCPDRO 00:37 → C.ER 06:27
DX: F10.10 Alcohol abuse, uncomplicated (principal); Y90.9 Presence of alcohol in blood, level not specified; Z59.0 Homelessness

== ENCOUNTER 2017-03-09 14:59 | Inpatient (IN) | payer OTHER ==
[2017-03-09 15:20] VITALS: BMI 26.6
[2017-03-09] MEDS ORDERED: Sodium Chloride 0.9% 1,000 ML IV ONE (16:03)
--- NOTE | 2017-03-09 16:12 | C.PDOC ---
History Of Present Illness 51 y/o male brought in by ambulance found unconscious, bleeding from right scalp and right ear. Pt homeless, alcoholic; seen in ED this last overnight for alcohol intoxication, discharged this morning. Pt stuporous, not answering questions. Time Seen by Provider: 03/09/17 15:36 Chief Complaint (Nursing): Abnormal Skin Integrity History Per: Patient History/Exam Limitations: clinical condition Onset/Duration Of Symptoms: Hrs Current Symptoms Are (Timing): Still Present Severity: Moderate Recent travel outside of the [place]: No Past Medical History Reviewed: Historical Data, Nursing Documentation, Vital Signs Vital Signs: Last Vital Signs Temp 98.4 F 03/09/17 18:30 Pulse 91 H 03/09/17 18:34 Resp 15 03/09/17 18:34 BP 172/76 H 03/09/17 18:34 Pulse Ox 90 L 03/09/17 18:34 - Medical History PMH: Anxiety, Arthritis, COPD, Depression, HTN, Pancreatitis, Pneumonia, Seizures Surgical History: - [facility] Procedures ALCOHOL DETOXIFICATION (07/31/14) DETOXIFICATION SERVICES FOR SUBSTANCE ABUSE TREATMENT (12/02/16) EXCISION OF SMALL INTESTINE, ENDO, DIAGN (12/02/16) INFLUENZA VACCINATION (10/21/13) INJECT/INFUSE ELECTROLYT (05/15/13) INJECT/INFUSE NEC (10/02/14) INSERT INTERCOSTAL CATH (01/22/15) INSERTION OF INFUSION DEV INTO SUP VENA CAVA, PERC APPROACH (12/02/16) LINEAR REP LID LACER (11/07/14) OTHER GROUP THERAPY (06/07/13) TETANUS TOXOID ADMINIST (11/07/14) THORACOSCOPIC DECORTICATION OF LUNG (01/22/15) TRANSFUSE NONAUT PLATELETS IN PERIPH VEIN, PERC (06/29/16) VACCINATION NEC (02/18/15) Family History: States: Unknown Family Hx - Social History Hx Tobacco Use: Yes Hx Alcohol Use: Yes Hx Substance Use: No (DENIED) - Immunization History Hx Tetanus Toxoid Vaccination: No Hx Influenza Vaccination: No Hx Pneumococcal Vaccination: No Review Of Systems Review Of Systems: ROS cannot be obtained secondary to pt's inabilty to answer questions. Physical Exam - Physical Exam Appears: Non-toxic, Chronically Ill Skin: Warm, Dry, No Rash, Other (shakeel complexion) Head: Normacephalic, Laceration (1 cm superficial laceration to tight temporal occipital area) Eye(s): right: Other (hemotympanum; slow bleeding in right ear canal), left: Normal Inspection Nose: Normal Neck: Normal ROM, Supple Chest: Symmetrical Cardiovascular: Rhythm Regular, No Murmur Respiratory: Normal Breath Sounds, No Rales, No Rhonchi, No Wheezing Gastrointestinal/Abdominal: Normal Exam, Soft, No Tenderness Extremity: Normal ROM Extremity: Bilateral: Atraumatic Pulses: Left Dorsalis Pedis: Normal, Right Dorsalis Pedis: Normal ED Course And Treatment - Laboratory Results Result Diagrams: 03/09/17 16:28 03/09/17 16:28 Lab Interpretation: Abnormal (ETOH 14) ECG: Interpreted By Me ECG Rhythm: Sinus Rhythm ECG Interpretation: Normal Rate From EC (interferance) O2 Sat by Pulse Oximetry: 95 (room air) Pulse Ox Interpretation: Normal - Radiology CXR: Interpreted by Me CXR Interpretation: Yes: No Acute Disease (+RLL), Infiltrates Progress Note: Approximately 1600, seizure activity witnessed, given ativan 2 mg IV. Reevaluation Time: 18:01 Reassessment Condition: Improved - Physician Consult Information Outcome Of Conversation: 1730: d/w Scot Reed -pmd, ok to ICU. 1745: d/w ICU-, ok to sent to ICU. 1800: d/w Dr. Arteaga- NSGY Poultry Dresser- recommends repeat CT head in AM and will follow, no new interventions/meds at this time. No urgent NSGY procedures necessary at this time. Critical Care Time - Critical Care Note Total Time (in mins): 90 Documented critical care: time excludes all time spent performing seperately billable procedures. Medical Decision Making Medical Decision Making: Homeless Alcoholic seems to have fallen to R skull with R temporal/mastoid fx and small coup contra coup SAB and SDH's Brief seizure activity- ? due to brain injury or ETOH withdrawal. Ativan given and Keppra started. RLL PNA per cxr- blood cult x 2 and IV ABX per ICU preference. Disposition Doctor Will See Patient In The: Hospital Counseled Patient/Family Regarding: Studies Performed, Diagnosis - Disposition Disposition: HOSPITALIZED Disposition Time: 18:05 Condition: GOOD - Clinical Impression Clinical Impression: Seizure, Skull fracture, Subdural hematoma, Subarachnoid bleed, Alcohol abuse, Pneumonia - Scribe Statement The provider has reviewed the documentation as recorded by the James Wilks Provider Attestation: All medical record entries made by the James were at my direction and personally dictated by me. I have reviewed the chart and agree that the record accurately reflects my personal performance of the history, physical exam, medical decision making, and the department course for this patient. I have also personally directed, reviewed, and agree with the discharge instructions and disposition.
[2017-03-09 16:46] LABS: INR 1.3
[2017-03-09 16:47] LABS: CHLORIDE 96 mmol/L (98-107)
[2017-03-09 16:48] LABS: POTASSIUM 4.1 mmol/L (3.6-5.2); SODIUM 144 mmol/L (132-148)
[2017-03-09 16:50] LABS: ALB/GLOB RATIO 1.1 (1.0-2.1); ALKALINE PHOSPHATASE 277 U/L (38-126); ALT/SGPT 59 U/L (21-72); AST/SGOT 148 U/L (17-59); BILIRUBIN,TOTAL 0.9 mg/dL (0.2-1.3); BLOOD UREA NITROGEN 9 mg/dL (9-20); CARBON DIOXIDE 28 mmol/L (22-30); GFR AFRICAN-AMERICAN > 60; GLUCOSE,RANDOM 132 mg/dL (75-110); TOTAL PROTEIN 7.4 g/dL (6.3-8.3)
[2017-03-09 16:51] LABS: ALCOHOL SERUM 14 mg/dl (0-10); CALCIUM 8.1 mg/dl (8.6-10.4)
[2017-03-09 17:06] LABS: BASO # 0.1 K/uL (0.0-0.2); BASO % 1.2 % (0.0-2.0); EOS % 0.7 % (0.0-4.0); HEMATOCRIT 37.4 % (35.0-51.0); LYMPH % 15.3 % (20.0-40.0); MEAN CORPUSCULAR HEMOGLOBIN 25.3 pg (27.0-31.0); MEAN CORPUSCULAR HGB CONC 31.2 g/dL (33.0-37.0); MONO # 0.4 K/uL (0.0-0.8); MONO % 5.6 % (0.0-10.0); NRBC % 0.1 % (0.0-2.0); RED CELL DISTRIBUTION WIDTH 21.3 % (11.5-14.5); WHITE BLOOD COUNT 6.5 K/uL (4.8-10.8)
[2017-03-09] MEDS ORDERED: Sodium Chloride 0.9% 1,000 ML ONE (17:24)
--- NOTE | 2017-03-09 17:42 | CT ---
PROCEDURE: CT scan brain 03/09/2017 HISTORY: R temporo/occ lac, R hemotympanum, ? Basilar skull fracture. COMPARISON: Comparison made with prior CT scan brain 11/08/2016. TECHNIQUE: Contiguous helical/transaxial computed tomography images were obtained through the head/brain without intravenous contrast. Radiation dose: Total exam DLP = 2146.09 mGy-cm. This CT exam was performed using one or more of the following dose reduction techniques: Automated exposure control, adjustment of the mA and/or kV according to patient size, and/or use of iterative reconstruction tech technique. FINDINGS: Current study reveals fracture traversing the right temporal bone extending through the synagogue squamous and mastoid portion of the right temporal lobe. . Fracture line also appears to extend superiorly and posterior along the left posterior parietal calvarium the as well. . . Partial opacification of the right mastoid air complex likely representing hemorrhage. There also appears to be mild circumferential soft tissue surrounding the right external auditory canal that may represent subperiosteal hemorrhage, more so along posterior border of the external auditory canal. There is overlying right the temporal parietal scalp contusion/soft tissue swelling. There is a small but relatively extensive left-sided acute subdural hematoma which is associated. In addition, there are scattered areas of subarachnoid and or cortical surface hemorrhage in the left frontal, right parietal and left temporal lobes. . Small amount of hemorrhage seen within the superior aspect right central sulcus as well. Questionable small amount of blood layering along the left tentorial leaf. 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 Moderate diffuse/confluent chronic periventricular white matter ischemic changes seen extending peripherally into the deep and subcortical white matter both cerebral hemispheres. Changes are most conspicuous in the parieto-occipital regions left greater than right also contiguous with the aforementioned chronic infarct mentioned above. Impression: There is a right-sided temporal bone fracture which extends through the mastoid portion of the right temporal bone and superiorly through the posterior parietal calvarium. There is also a small left-sided subdural hematoma with scattered areas of subarachnoid hemorrhage bilaterally. 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 Note that these findings were discussed with Dr. Nguyen at approximately 5:35 p.m. with written down and read back verification.
--- NOTE | 2017-03-09 17:51 | RAD ---
HISTORY: SOB COMPARISON: Chest x-ray performed 01/25/17 TECHNIQUE: Chest, one view. FINDINGS: The left costophrenic angles excluded from view. LUNGS: Right lower lobe patchy airspace opacity consistent with pneumonia. Please note that chest x-ray has limited sensitivity for the detection of pulmonary masses. PLEURA: Trace left pleural thickening versus small fluid. No definite pneumothorax . CARDIOVASCULAR: Heart size appears within normal limits. Dense atherosclerotic calcification of the aortic knob. OSSEOUS STRUCTURES: Degenerative changes. VISUALIZED UPPER ABDOMEN: Elevation of the right hemidiaphragm. OTHER FINDINGS: None. IMPRESSION: Right lower lobe opacity compatible with pneumonia. Recommend clinical correlation and follow-up to assess for complete resolution. Trace left pleural thickening versus small fluid. Elevation of the right hemidiaphragm.
--- NOTE | 2017-03-09 18:02 | CP.PCM.CON ---
<Gonzalo Lund - Last Filed: 03/09/17 18:43> History of Present Illness - History of Present Illness History of Present Illness: ICU consult for Dr. Santana, Se[facility] St[facility] HPI: Pt is a 51 year old homeless male, with PMHx of EtOH Abuse, Hypertension, Arthritis, Anxiety, Pancreatitis, COPD, who presents. Pt is well known to ED staff and presented late last night looking for place to sleep to off his hangover. He returned this afternoon, brought by EMS to ED. EMS report states they found him unconscious, laying on the floor outside with laceration to the right side of head. CT showed R mastoid fracture, small subarachnoid and subdural brain bleeds. Pt had witnessed seizure in ED, and given Ativan IV. Pt post-ictal and not answering questions. PMD: none PMH: as above PSH: Denies Home meds: none Allergies: NKA FH: denies SH: Extensive Etoh abuse hx (at least 1 pint a day for "years), tobacco for >40 years, denies other drugs, homeless Review of Systems - Review of Systems Systems not reviewed;Unavailable: Altered Mental Status Past Patient History - Infectious Disease Hx of Infectious Diseases: None - Tetanus Immunizations Tetanus Immunization: Unknown - Past Medical History & Family History Past Medical History?: Yes - Past Social History Smoking Status: Heavy Smoker > 10 Cigarettes Daily - CARDIAC Hx Hypertension: Yes - PULMONARY Hx Chronic Obstructive Pulmonary Disease (COPD): Yes Hx Pneumonia: Yes - NEUROLOGICAL Hx Seizures: Yes - HEENT Hx HEENT Problems: No - ENDOCRINE/METABOLIC Hx Endocrine Disorders: No - HEMATOLOGICAL/ONCOLOGICAL Hx Blood Disorders: No - INTEGUMENTARY Hx Dermatological Problems: No - MUSCULOSKELETAL/RHEUMATOLOGICAL Hx Arthritis: Yes - GASTROINTESTINAL Hx Pancreatitis: Yes - PSYCHIATRIC Hx Anxiety: Yes Hx Depression: Yes Hx Substance Use: No (DENIED) - SURGICAL HISTORY Hx Surgeries: Yes Other/Comment: left lung surgery - ANESTHESIA Hx Anesthesia: Yes Hx Anesthesia Reactions: No Hx Malignant Hyperthermia: No Meds Allergies/Adverse Reactions: Allergies Allergy/AdvReac Type Severity Reaction Status Date / Time No Known Allergies Allergy Verified 03/09/17 15:19 Physical Exam - Constitutional Appears: Non-toxic, Chronically Ill - Head Exam Head Exam: absent: ATRAUMATIC, NORMOCEPHALIC Additional comments: laceration to right temporal occipital area - ENT Exam ENT Exam: Mucous Membranes Dry Additional comments: bleeding from rt ear canal - Respiratory Exam Respiratory Exam: Clear to Auscultation Bilateral, NORMAL BREATHING PATTERN. absent: Accessory Muscle Use, Rales, Rhonchi, Wheezes - Cardiovascular Exam Cardiovascular Exam: REGULAR RHYTHM, +S1, +S2 - GI/Abdominal Exam GI & Abdominal Exam: Normal Bowel Sounds, Soft - Extremities Exam Extremities exam: Positive for: normal inspection. Negative for: tenderness - Back Exam Back exam: absent: CVA tenderness (L), CVA tenderness (R) - Neurological Exam Neurological exam: Alert, CN II-XII Intact, Oriented x3 - Skin Skin Exam: Normal Color, Warm Results - Vital Signs Recent Vital Signs: Last Vital Signs Temp 98.7 F 03/09/17 15:21 Pulse 88 03/09/17 15:21 Resp 20 03/09/17 15:21 BP 176/70 H 03/09/17 15:21 Pulse Ox 95 03/09/17 17:29 - Labs Result Diagrams: 03/09/17 16:28 03/09/17 16:28 Labs: Laboratory Results - last 24 hr 03/09/17 03/09/17 03/09/17 16:28 16:28 16:28 WBC 6.5 D RBC 4.61 Hgb 11.7 L Hct 37.4 MCV 81.0 MCH 25.3 L MCHC 31.2 L RDW 21.3 H Plt Count 148 MPV 8.0 Neut % (Auto) 77.2 H Lymph % (Auto) 15.3 L [place] % (Auto) 5.6 Eos % (Auto) 0.7 Baso % (Auto) 1.2 Neut # 5.0 Lymph # 1.0 [place] # 0.4 Eos # 0.0 Baso # 0.1 PT 15.0 H INR 1.3 APTT 36 H Sodium 144 Potassium 4.1 Chloride 96 L Carbon Dioxide 28 Anion Gap 23 H BUN 9 Creatinine 0.5 L Est GFR ( Amer) > 60 Est GFR (Non-Af Amer) > 60 Random Glucose 132 H Calcium 8.1 L Total Bilirubin 0.9 AST 148 H D ALT 59 Alkaline Phosphatase 277 H D Troponin I < 0.0120 NT-Pro-B Natriuret Pep 154 Total Protein 7.4 Albumin 3.8 Globulin 3.6 Albumin/Globulin Ratio 1.1 Alcohol, Quantitative 14 H Assessment & Plan - Assessment and Plan (Free Text) Assessment: 51 year old homeless male, with PMHx of EtOH Abuse, seizures, Hypertension, Arthritis, Anxiety, COPD, who presents after being found unconscious bleeding from right ear. CT Head showed R mastoid fracture, small subarachnoid and subdural brain bleeds. Plan: Pt status: Full Code, Admit to ICU Neuro: AMS Pt stuprous, found unconscious CT Head (03/09/17): Right sided temporal bone fracture which extends through the mastoid portion of the right temporal bone and superiorly through the posterior parietal calvarium. There is a small left-sided subdural hematoma with scattered areas of SAH b/l. 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 (see full report). Neuro surgery consult: Dr. Dumont, help appreciated - recommend repeat CT head in AM - No urgent neurosurgery recommended Hx of alcohol abuse UDS shows slightly elevated alcohol, admission last night for hangover Start Banana bag Monitor for W/D Hx of seizures Witnesses seizure in ED today, pt post-ictal - awake but unresponsive Ativan 2mg IV ONCE CIWA protocol Last known seizure before today, unknown CV: Hx of HTN - not on home meds Elevated in ED Monitor Pulm: O2 sat: 95% on rm air CXR (03/09/17): RLL opacity compatible w PNA. Recommend clinical correlation and follow-up to assess for resolution. Trace left pleural thickening vs fluid. Elevation of right hemidiaphragm (see full report). GI: NPO diet /Renal: f/u UA UDS: Alcohol slightly elevated MSKLTL: Temporal Bone fracture CT head (03/09/17): Right sided temporal bone fracture which extends through the mastoid portion of the right temporal bone and superiorly through the posterior parietal calvarium (see full report) Prophylaxis: VTE c/i due to brain bleed SCDs Protonix 40mg IV Daily <Jamaal Santana - Last Filed: 03/09/17 18:52> Meds - Medications Medications: Current Medications Levetiracetam 500 mg/ Sodium (Chloride) 105 mls @ 420 mls/hr IVPB Q12H JÚNIOR Last Admin: 03/09/17 18:43 Dose: 420 mls/hr Lorazepam (Ativan) 1 mg IVP Q4H PRN PRN Reason: Symptoms of alcohol withdrawl Results - Vital Signs Recent Vital Signs: Last Vital Signs Temp 99.5 F 03/09/17 17:30 Pulse 85 03/09/17 17:30 Resp 16 03/09/17 17:30 BP 163/76 H 03/09/17 17:30 Pulse Ox 95 03/09/17 18:12 - Labs Result Diagrams: 03/09/17 16:28 03/09/17 16:28 Attending/Attestation - Attestation I have personally seen and examined this patient.: Yes I have fully participated in the care of the patient.: Yes I have reviewed all pertinent clinical information: Yes Notes (Text): 03/09/17 18:51 I have seen and examined the patient. Medical records, lab studies, and imaging were reviewed by me and a management plan was formulated on multidisciplinary rounds with resident Dr. Lund. I agree with their above documented assessment and plan. Chronic ETOH abuse with cirrhosis. Patient is admitted to ICU for neuro checks for traumatic SAH. Patient is on CIWA protocol for etoh withdrawal. Critical Care Time 35 minutes. Multi-disciplinary rounds were performed with house staff, nursing, speech therapy, respiratory therapy, pharmacy and nutrition with integrated input from the primary team/attending and other consulting services. The documented time is cumulative and includes review of patient data/exams/labs/chart review and examination of the patient on rounds and throughout the day; time is exclusive of any procedures or teaching time.
[2017-03-09] MEDS: levETIRAcetam 500 MG in Sodium Chloride 0.9% 100 ML IVPB SCH (18:43)
[2017-03-09] MEDS ORDERED: Multivitamin (MVI) 10 ML, Thiamine 100 MG, Folic Acid 1 MG in Sodium Chloride 0.9% 1,00... IV ONE (18:53)
--- NOTE | 2017-03-09 20:43 | CP.PCM.HP ---
History of Present Illness - History of Present Illness History of Present Illness: 51 years old male patient with past medical history of hypertension pancreatitis , COPD, arthritis, alcohol abuse, brought by EMS to emergency department as the found him unconscious, laying on the floor with right side of the head laceration. Presented to ED late last night looking for a place to sleep office and hangover. CT scan showed type fracture, subarachnoid and subdural bleeding and brain. Patient had witnessed seizure in the emergency room. Present on Admission - Present on Admission Any Indicators Present on Admission: No Past Patient History - Infectious Disease Hx of Infectious Diseases: None - Tetanus Immunizations Tetanus Immunization: Unknown - Past Medical History & Family History Past Medical History?: Yes - Past Social History Smoking Status: Never Smoked - CARDIAC Hx Hypertension: Yes - PULMONARY Hx Chronic Obstructive Pulmonary Disease (COPD): Yes Hx Pneumonia: Yes - NEUROLOGICAL Hx Seizures: Yes - HEENT Hx HEENT Problems: No - ENDOCRINE/METABOLIC Hx Endocrine Disorders: No - HEMATOLOGICAL/ONCOLOGICAL Hx Blood Disorders: No - INTEGUMENTARY Hx Dermatological Problems: Yes Other/Comment: Stage 2 decubitus both buttocks - MUSCULOSKELETAL/RHEUMATOLOGICAL Hx Arthritis: Yes - GASTROINTESTINAL Hx Pancreatitis: Yes - PSYCHIATRIC Hx Anxiety: Yes Hx Depression: Yes Hx Substance Use: No (DENIED) - SURGICAL HISTORY Hx Surgeries: Yes Other/Comment: left lung surgery - ANESTHESIA Hx Anesthesia: Yes Hx Anesthesia Reactions: No Hx Malignant Hyperthermia: No Meds Home Medications: Home Medication List Medication Instructions Recorded Confirmed Type Acetaminophen [Tylenol 325mg tab] 650 mg PO Q6 PRN tab 05/07/17 Rx Folic Acid 1 mg PO DAILY tab 05/07/17 Rx Multivitamins [Hexavitamin] 1 tab PO DAILY tab 05/07/17 Rx Nicotine 14 mg/24 hr [Nicoderm CQ] 1 patch TD DAILY patch 05/07/17 Rx Thiamine [Vitamin B1 Tab] 100 mg PO DAILY tab 05/07/17 Rx Topiramate [Topamax] 50 mg PO DAILY tab 05/07/17 Rx Allergies/Adverse Reactions: Allergies Allergy/AdvReac Type Severity Reaction Status Date / Time No Known Allergies Allergy Verified 03/09/17 15:19 Results - Vital Signs Recent Vital Signs: Last Vital Signs Temp 98.4 F 03/09/17 18:30 Pulse 91 H 03/09/17 18:34 Resp 15 03/09/17 18:34 BP 172/76 H 03/09/17 18:34 Pulse Ox 95 03/09/17 20:05 - Labs Result Diagrams: 05/07/17 06:00 05/07/17 06:00 Assessment & Plan (1) Abdominal pain Status: Acute (2) Abrasion Status: Acute (3) Alcohol abuse with intoxication Status: Acute (4) Alcohol intoxication Status: Acute (5) Alcohol withdrawal Status: Acute (6) Alcohol withdrawal seizure Status: Acute (7) Bacteremia Status: Acute (8) Bilateral lower extremity edema Status: Acute (9) Breakthrough seizure Status: Acute (10) Cellulitis Status: Acute (11) Cellulitis of lower extremity Status: Acute (12) Chronic calcific pancreatitis Status: Acute (13) Dehydration Status: Acute (14) Diarrhea Status: Acute (15) Dressing change/suture removal Status: Acute (16) Drug dependence Status: Acute (17) Duodenitis Status: Acute (18) Electrolyte imbalance Status: Acute (19) Elevated alkaline phosphatase level Status: Acute Priority: High (20) Facial laceration Status: Acute (21) Fever Status: Acute (22) Head trauma Status: Acute (23) Homelessness Status: Acute (24) Hyperphosphatemia Status: Acute (25) Hypokalemia Status: Acute (26) Hypokalemia with normal acid-base balance Status: Acute Priority: Medium (27) Hypomagnesemia Status: Acute (28) Hypothermia Status: Acute (29) Low vitamin D level Status: Acute (30) Pancreatic mass Status: Acute (31) Pancreatitis, acute Status: Acute Priority: High (32) Periapical abscess Status: Acute (33) Pneumonia Status: Acute (34) Pneumonia Status: Acute (35) Prophylactic measure Status: Acute (36) Respiratory failure with hypoxia and hypercapnia Status: Acute Priority: High (37) Seizure Status: Acute (38) Skull fracture Status: Acute (39) Subarachnoid bleed Status: Acute (40) Subdural hematoma Status: Acute (41) Subdural hemorrhage Status: Acute (42) Thrombocythemia Status: Acute (43) Thrombocytopenia Status: Acute (44) Tobacco abuse Status: Acute (45) Tremors of nervous system Status: Acute (46) Vitamin D deficiency Status: Acute (47) Acute on chronic pancreatitis Status: Chronic (48) Alcohol abuse Status: Chronic Priority: Low (49) Alcohol abuse Status: Chronic Priority: Low (50) Alcohol dependence Status: Chronic Priority: High (51) Anemia Status: Chronic Priority: Medium (52) Anxiety and depression Status: Chronic (53) Aspiration into lower respiratory tract Status: Chronic Priority: Medium (54) COPD (chronic obstructive pulmonary disease) Status: Chronic Priority: Medium (55) Cholecystitis Status: Chronic (56) Chronic pancreatitis Status: Chronic (57) Depression Status: Chronic Priority: Medium (58) Hypertension Status: Chronic Priority: Low (59) Peripheral motor neuropathy Status: Chronic (60) Empyema Status: Suspected Priority: High (61) Seizure Status: Resolved - Assessment and Plan (Free Text) Plan: pulm critical neuro ent admitted to icu ivfluid w/f eizure s/p ativan mvi and thiamine
[2017-03-09 23:29] LABS: RBC URINE 1 /hpf (0-3); URINE BILIRUBIN NEGATIVE (NEGATIVE); URINE BLOOD NEGATIVE (NEGATIVE); URINE COLOR Straw (YELLOW); URINE GLUCOSE (UA) NORMAL (Normal); URINE KETONE TRACE mg/dL (NEGATIVE); URINE LEUKOCYTE ESTERASE NEG Leu/uL (Negative); URINE PROTEIN NEGATIVE (NEGATIVE); URINE UROBILINOGEN NORMAL mg/dL (0.2-1.0); WBC URINE 1 /hpf (0-5)
[2017-03-10] MEDS: levETIRAcetam 500 MG in Sodium Chloride 0.9% 100 ML IVPB SCH ×2 (05:16→17:41)
[2017-03-10 05:56] LABS: BASO % 0.5 % (0.0-2.0); EOS % 0.2 % (0.0-4.0); HEMATOCRIT 31.8 % (35.0-51.0); LYMPH # 0.7 K/uL (1.0-4.3); MEAN CELL VOLUME 79.7 fL (80.0-94.0); MEAN CORPUSCULAR HEMOGLOBIN 24.8 pg (27.0-31.0); MEAN CORPUSCULAR HGB CONC 31.1 g/dL (33.0-37.0); MONO # 0.4 K/uL (0.0-0.8); MONO % 4.8 % (0.0-10.0); PLATELET COUNT 104 K/uL (130-400); RED CELL DISTRIBUTION WIDTH 20.1 % (11.5-14.5); WHITE BLOOD COUNT 8.9 K/uL (4.8-10.8)
[2017-03-10 06:06] LABS: CHLORIDE 91 mmol/L (98-107); POTASSIUM 3.4 mmol/L (3.6-5.2); SODIUM 135 mmol/L (132-148)
[2017-03-10 06:08] LABS: ALB/GLOB RATIO 0.9 (1.0-2.1); ALKALINE PHOSPHATASE 207 U/L (38-126); ALT/SGPT 44 U/L (21-72); AST/SGOT 63 U/L (17-59); BILIRUBIN,TOTAL 1.1 mg/dL (0.2-1.3); BLOOD UREA NITROGEN 6 mg/dL (9-20); CARBON DIOXIDE 29 mmol/L (22-30); GFR AFRICAN-AMERICAN > 60; TOTAL PROTEIN 6.1 g/dL (6.3-8.3)
[2017-03-10 06:09] LABS: CALCIUM 7.3 mg/dl (8.6-10.4); GLUCOSE,RANDOM 116 mg/dL (75-110); PHOSPHOROUS 2.8 mg/dL (2.5-4.5)
[2017-03-10 06:14] LABS: MAGNESIUM 0.6 mg/dL (1.6-2.3)
[2017-03-10] MEDS: Magnesium Sulfate 1 gm in D5W 1 GM/100 ML BAG IVPB SCH ×7 (07:28→23:27)
--- NOTE | 2017-03-10 08:56 | CP.PCM.PN ---
Subjective - Date & Time of Evaluation Date of Evaluation: 03/10/17 Time of Evaluation: 08:54 - Subjective Subjective: 51yo chronic alcoholic found yesterday with signs of trauma CT reviewed hemotympanum, Basal skull fx, small SDH Pt is awake alert non verbal not following commands but moving all purspousfully LAUREEN EOM full good strength but unable to test each limb as not following commands Will repeat ct this am of now no intervention indicated Objective - Vital Signs/Intake and Output Vital Signs (last 24 hours): Temp Pulse Resp BP Pulse Ox 100.4 F H 105 H 24 124/63 94 L 03/10/17 08:00 03/10/17 08:04 03/10/17 08:04 03/10/17 08:04 03/10/17 08:04 Intake and Output: 03/10/17 03/10/17 06:59 18:59 Intake Total 1100 250 Output Total 600 Balance 500 250 - Medications Medications: Current Medications Levetiracetam 500 mg/ Sodium (Chloride) 105 mls @ 420 mls/hr IVPB Q12H JÚNIOR Last Admin: 03/10/17 05:16 Dose: 420 mls/hr Cefepime HCl 1 gm/ Dextrose 50 mls @ 100 mls/hr IVPB Q8H JÚNIOR Last Admin: 03/10/17 04:25 Dose: 100 mls/hr Potassium Chloride (Potassium Chloride 20 Meq/100 Ml) 20 meq in 100 mls @ 50 mls/hr IVPB ONCE ONE Stop: 03/10/17 09:29 Last Admin: 03/10/17 07:28 Dose: 50 mls/hr Multivitamins/Vitamin C 10 ml/Thiamine HCl 100 mg/ Folic Acid 1 mg/ Sodium Chloride 1,011.2 mls @ 100 mls/hr IV .Q10H7M ONE Stop: 03/10/17 18:58 Lorazepam (Ativan) 1 mg IVP Q4H PRN PRN Reason: Symptoms of alcohol withdrawl Last Admin: 03/10/17 04:24 Dose: 1 mg Pneumococcal Polyvalent Vaccine (Pneumovax 23 Vaccine) 0.5 ml IM .ONCE ONE Stop: 03/11/17 10:01 - Labs Labs: 03/10/17 05:50 03/10/17 05:50 PT 15.0 SECONDS (9.7-12.2) H 03/09/17 16:28 INR 1.3 03/09/17 16:28 APTT 36 SECONDS (21-34) H 03/09/17 16:28
[2017-03-10 09:02] LABS: EOSINOPHIL 2 % (0-4); NEUTROPHIL 89 % (50-75); TOTAL CELLS COUNTED 100
[2017-03-10 09:03] LABS: LARGE PLATELETS PRESENT
[2017-03-10] MEDS: Multivitamin (MVI) 10 ML, Thiamine 100 MG, Folic Acid 1 MG in Sodium Chloride 0.9% 1,00... IV SCH (09:25)
[2017-03-10 12:05] LABS: CHLORIDE 90 mmol/L (98-107)
[2017-03-10 12:06] LABS: POTASSIUM 3.7 mmol/L (3.6-5.2); SODIUM 132 mmol/L (132-148)
--- NOTE | 2017-03-10 12:06 | CT ---
PROCEDURE: CT HEAD WITHOUT CONTRAST. HISTORY: Follow-up right temporal bone fracture. COMPARISON: March 09, 2017. At 16:43. TECHNIQUE: Axial computed tomography images were obtained through the head/brain without intravenous contrast. Radiation dose: Total exam DLP = 1008.15 mGy-cm. This CT exam was performed using one or more of the following dose reduction techniques: Automated exposure control, adjustment of the mA and/or kV according to patient size, and/or use of iterative reconstruction technique. FINDINGS: HEMORRHAGE: Progressive parenchymal hemorrhage left temporal lobe. Evolution/slight progression of acute hemorrhage within the left extra-axial space without associated edema or mass effect. Additional areas of parenchymal and subarachnoid hemorrhage bilaterally are stable including left parietal lobe, high right parietal lobe region BRAIN: There is no appreciable midline shift associate with the progressive left temporal hemorrhage. No change folds left temporoparietal infarct. VENTRICLES: Unremarkable. No hydrocephalus. CALVARIUM: Stable fracture through the left temporal bone. PARANASAL SINUSES: Unremarkable as visualized. No significant inflammatory changes. MASTOID AIR CELLS: Unremarkable as visualized. No inflammatory changes. OTHER FINDINGS: None. IMPRESSION: 1. Progression of parenchymal hemorrhage in the left temporal lobe. 2. Increase conspicuity of hemorrhage within the extra-axial space on the left without adjacent associated edema or mass effect. 3. Stable punctate parenchymal and subarachnoid hemorrhages bilaterally. 4. Stable basilar skull fracture on the right. Critical results provided at 11:58.
[2017-03-10 12:09] LABS: BLOOD UREA NITROGEN 4 mg/dL (9-20); CALCIUM 7.3 mg/dl (8.6-10.4); CARBON DIOXIDE 32 mmol/L (22-30); GFR AFRICAN-AMERICAN > 60; GLUCOSE,RANDOM 102 mg/dL (75-110)
[2017-03-10 12:10] LABS: MAGNESIUM 1.1 mg/dL (1.6-2.3)
--- NOTE | 2017-03-10 13:08 | CP.CCUPN ---
CCU Subjective - Physician Review Events Since Last Encounter (Free Text): 03/10/17 13:05 patient is fairly sedate from Ativan. CCU Objective - Vital Signs / Intake & Output Vital Signs (Last 4 hours): Vital Signs Pulse Resp BP Pulse Ox 03/10/17 12:00 97 H 25 H 93 L 03/10/17 11:03 97 H 19 132/72 95 03/10/17 11:01 95 H 24 95 03/10/17 10:16 88 25 H 137/75 95 03/10/17 09:57 94 H 96 Intake and Output (Last 8hrs): Intake & Output 03/09/17 03/10/17 03/10/17 22:59 06:59 14:59 Intake Total 300 800 700 Output Total 600 Balance -300 800 700 Weight 150 lb 150 lb Intake: Intake, IV Amount 300 800 700 Left Forearm 300 800 600 Left foreaerm 100 Oral 0 Output: Urine 600 Urine, Voided 600 Other: Voiding Method Urinal # Voids Urine, Voided 1 # Bowel Movements 1 1 1 - Physical Exam Physical Exam Limitations: Positive for: Altered Mental Status Head: Positive for: Normocephalic, Abrasion Pupils: Positive for: PERRL Extroacular Muscles: Positive for: EOMI Mouth: Positive for: Moist Mucous Membranes Respiratory/Chest: Positive for: Clear to Auscultation, Good Air Exchange. Negative for: Respiratory Distress Cardiovascular: Positive for: Regular Rate and Rhythm, Normal S1, S2 Abdomen: Positive for: Normal Bowel Sounds. Negative for: Tenderness, Distention Other physical findings (Free Text): sedated - Medications Active Medications: Active Medications Generic Name Dose Route Start Last Admin Trade Name Tabq PRN Reason Stop Dose Admin Levetiracetam 500 mg/ Sodium 105 mls @ 420 mls/hr 03/09/17 18:15 03/10/17 05: 16 Chloride IVPB 420 mls/hr Q12H JÚNIOR Administration Cefepime HCl 1 gm/ Dextrose 50 mls @ 100 mls/hr 03/09/17 21:00 03/10/17 12:33 IVPB 100 mls/hr Q8H JÚNIOR Administration Multivitamins/Vitamin C 10 ml/ 1,011.2 mls @ 100 mls/hr 03/10/17 10:00 09:25 Thiamine HCl 100 mg/ Folic IV 03/12/17 20:07 100 mls/hr Acid 1 mg/ Sodium Chloride DAILY JÚNIOR Administration Magnesium Sulfate/Dextrose 1 gm in 100 mls @ 300 mls/hr 03/10/17 12:45 13:03 Magnesium Sulfate 1 Gm/100 Ml D5w IVPB 03/10/17 13:34 300 mls/hr Q30M JÚNIOR Administration Lorazepam 1 mg 03/09/17 18:46 03/10/17 09:24 Ativan IVP 1 mg Q4H PRN Administration Symptoms of alcohol withdrawl Pantoprazole Sodium 40 mg 03/10/17 13:00 03/10/17 13:03 Protonix Inj IVP 40 mg DAILY JÚNIOR Administration Pneumococcal Polyvalent Vaccine 0.5 ml 03/11/17 10:00 Pneumovax 23 Vaccine IM 03/11/17 10:01 .ONCE ONE - Patient Studies Lab Studies: Lab Studies 03/10/17 03/10/17 03/10/17 Range/Units 11:54 05:50 05:50 WBC 8.9 (4.8-10.8) K/uL RBC 3.99 L (4.40-5.90) Mil/uL Hgb 9.9 L (12.0-18.0) g/dL Hct 31.8 L (35.0-51.0) % MCV 79.7 L (80.0-94.0) fL MCH 24.8 L (27.0-31.0) pg MCHC 31.1 L (33.0-37.0) g/dL RDW 20.1 H (11.5-14.5) % Plt Count 104 L D (130-400) K/uL MPV 9.0 (7.2-11.7) fL Neut % (Auto) 86.5 H (50.0-75.0) % Lymph % (Auto) 8.0 L (20.0-40.0) % [place] % (Auto) 4.8 (0.0-10.0) % Eos % (Auto) 0.2 (0.0-4.0) % Baso % (Auto) 0.5 (0.0-2.0) % Neut # 7.7 H (1.8-7.0) K/uL Lymph # 0.7 L (1.0-4.3) K/uL [place] # 0.4 (0.0-0.8) K/uL Eos # 0.0 (0.0-0.7) K/uL Baso # 0.0 (0.0-0.2) K/uL Neutrophils % (Manual) 89 H (50-75) % Band Neutrophils % 1 (0-2) % Lymphocytes % (Manual) 5 L (20-40) % Monocytes % (Manual) 3 (0-10) % Eosinophils % (Manual) 2 (0-4) % Platelet Estimate Slightly decreased L (NORMAL) Large Platelets Present Polychromasia Slight Hypochromasia (manual) Slight Anisocytosis (manual) Slight Sodium 132 135 (132-148) mmol/L Potassium 3.7 3.4 L (3.6-5.2) mmol/L Chloride 90 L 91 L (98-107) mmol/L Carbon Dioxide 32 H 29 (22-30) mmol/L Anion Gap 14 18 (10-20) BUN 4 L 6 L (9-20) mg/dL Creatinine 0.5 L 0.5 L (0.8-1.5) MG/DL Est GFR ( Amer) > 60 > 60 Est GFR (Non-Af Amer) > 60 > 60 Random Glucose 102 116 H (75-110) mg/dL Calcium 7.3 L 7.3 L (8.6-10.4) mg/dl Phosphorus 2.8 (2.5-4.5) mg/dL Magnesium 1.1 L 0.6 L* D (1.6-2.3) mg/dL Total Bilirubin 1.1 (0.2-1.3) mg/dL AST 63 H D (17-59) U/L ALT 44 (21-72) U/L Alkaline Phosphatase 207 H D (38-126) U/L Total Protein 6.1 L (6.3-8.3) g/dL Albumin 2.9 L D (3.5-5.0) g/dL Globulin 3.1 (2.2-3.9) gm/dL Albumin/Globulin Ratio 0.9 L (1.0-2.1) Urine Color (YELLOW) Urine Clarity (Clear) Urine pH (5.0-8.0) Ur Specific [place] (1.003-1.030) Urine Protein (NEGATIVE) mg/dL Urine Glucose (UA) (Normal) mg/dL Urine Ketones (NEGATIVE) mg/dL Urine Blood (NEGATIVE) Urine Nitrate (NEGATIVE) Urine Bilirubin (NEGATIVE) Urine Urobilinogen (0.2-1.0) mg/dL Ur Leukocyte Esterase (Negative) Senthil/uL Urine WBC (Auto) (0-5) /hpf Urine RBC (Auto) (0-3) /hpf Hyaline Casts (0-2) /lpf Urine Opiates Screen (NEGATIVE) Urine Methadone Screen (NEGATIVE) Ur Barbiturates Screen (NEGATIVE) Ur Phencyclidine Scrn (NEGATIVE) Ur Amphetamines Screen (NEGATIVE) U Benzodiazepines Scrn (NEGATIVE) U Oth Cocaine Metabols (NEGATIVE) U Cannabinoids Screen (NEGATIVE) 03/09/17 03/09/17 Range/Units 23:17 23:17 WBC (4.8-10.8) K/uL RBC (4.40-5.90) Mil/uL Hgb (12.0-18.0) g/dL Hct (35.0-51.0) % MCV (80.0-94.0) fL MCH (27.0-31.0) pg MCHC (33.0-37.0) g/dL RDW (11.5-14.5) % Plt Count (130-400) K/uL MPV (7.2-11.7) fL Neut % (Auto) (50.0-75.0) % Lymph % (Auto) (20.0-40.0) % [place] % (Auto) (0.0-10.0) % Eos % (Auto) (0.0-4.0) % Baso % (Auto) (0.0-2.0) % Neut # (1.8-7.0) K/uL Lymph # (1.0-4.3) K/uL [place] # (0.0-0.8) K/uL Eos # (0.0-0.7) K/uL Baso # (0.0-0.2) K/uL Neutrophils % (Manual) (50-75) % Band Neutrophils % (0-2) % Lymphocytes % (Manual) (20-40) % Monocytes % (Manual) (0-10) % Eosinophils % (Manual) (0-4) % Platelet Estimate (NORMAL) Large Platelets Polychromasia Hypochromasia (manual) Anisocytosis (manual) Sodium (132-148) mmol/L Potassium (3.6-5.2) mmol/L Chloride (98-107) mmol/L Carbon Dioxide (22-30) mmol/L Anion Gap (10-20) BUN (9-20) mg/dL Creatinine (0.8-1.5) MG/DL Est GFR ( Amer) Est GFR (Non-Af Amer) Random Glucose (75-110) mg/dL Calcium (8.6-10.4) mg/dl Phosphorus (2.5-4.5) mg/dL Magnesium (1.6-2.3) mg/dL Total Bilirubin (0.2-1.3) mg/dL AST (17-59) U/L ALT (21-72) U/L Alkaline Phosphatase (38-126) U/L Total Protein (6.3-8.3) g/dL Albumin (3.5-5.0) g/dL Globulin (2.2-3.9) gm/dL Albumin/Globulin Ratio (1.0-2.1) Urine Color Straw (YELLOW) Urine Clarity Clear (Clear) Urine pH 6.0 (5.0-8.0) Ur Specific [place] 1.011 (1.003-1.030) Urine Protein Negative (NEGATIVE) mg/dL Urine Glucose (UA) Normal (Normal) mg/dL Urine Ketones Trace (NEGATIVE) mg/dL Urine Blood Negative (NEGATIVE) Urine Nitrate Negative (NEGATIVE) Urine Bilirubin Negative (NEGATIVE) Urine Urobilinogen Normal (0.2-1.0) mg/dL Ur Leukocyte Esterase Neg (Negative) Senthil/uL Urine WBC (Auto) 1 (0-5) /hpf Urine RBC (Auto) 1 (0-3) /hpf Hyaline Casts 3-5 H (0-2) /lpf Urine Opiates Screen Negative (NEGATIVE) Urine Methadone Screen Negative (NEGATIVE) Ur Barbiturates Screen Negative (NEGATIVE) Ur Phencyclidine Scrn Negative (NEGATIVE) Ur Amphetamines Screen Negative (NEGATIVE) U Benzodiazepines Scrn Negative (NEGATIVE) U Oth Cocaine Metabols Negative (NEGATIVE) U Cannabinoids Screen Negative (NEGATIVE) Laboratory Results - last 24 hr 03/09/17 03/09/1717 23:17 23:17 05:50 WBC 8.9 RBC 3.99 L Hgb 9.9 L Hct 31.8 L MCV 79.7 L MCH 24.8 L MCHC 31.1 L RDW 20.1 H Plt Count 104 L D MPV 9.0 Neut % (Auto) 86.5 H Lymph % (Auto) 8.0 L [place] % (Auto) 4.8 Eos % (Auto) 0.2 Baso % (Auto) 0.5 Neut # 7.7 H Lymph # 0.7 L [place] # 0.4 Eos # 0.0 Baso # 0.0 Neutrophils % (Manual) 89 H Band Neutrophils % 1 Lymphocytes % (Manual) 5 L Monocytes % (Manual) 3 Eosinophils % (Manual) 2 Platelet Estimate Slightly decreased L Large Platelets Present Polychromasia Slight Hypochromasia (manual) Slight Anisocytosis (manual) Slight Sodium Potassium Chloride Carbon Dioxide Anion Gap BUN Creatinine Est GFR ( Amer) Est GFR (Non-Af Amer) Random Glucose Calcium Phosphorus Magnesium Total Bilirubin AST ALT Alkaline Phosphatase Total Protein Albumin Globulin Albumin/Globulin Ratio Urine Color Straw Urine Clarity Clear Urine pH 6.0 Ur Specific [place] 1.011 Urine Protein Negative Urine Glucose (UA) Normal Urine Ketones Trace Urine Blood Negative Urine Nitrate Negative Urine Bilirubin Negative Urine Urobilinogen Normal Ur Leukocyte Esterase Neg Urine WBC (Auto) 1 Urine RBC (Auto) 1 Hyaline Casts 3-5 H Urine Opiates Screen Negative Urine Methadone Screen Negative Ur Barbiturates Screen Negative Ur Phencyclidine Scrn Negative Ur Amphetamines Screen Negative U Benzodiazepines Scrn Negative U Oth Cocaine Metabols Negative U Cannabinoids Screen Negative 03/10/17 03/10/17 05:50 11:54 WBC RBC Hgb Hct MCV MCH MCHC RDW Plt Count MPV Neut % (Auto) Lymph % (Auto) [place] % (Auto) Eos % (Auto) Baso % (Auto) Neut # Lymph # [place] # Eos # Baso # Neutrophils % (Manual) Band Neutrophils % Lymphocytes % (Manual) Monocytes % (Manual) Eosinophils % (Manual) Platelet Estimate Large Platelets Polychromasia Hypochromasia (manual) Anisocytosis (manual) Sodium 135 132 Potassium 3.4 L 3.7 Chloride 91 L 90 L Carbon Dioxide 29 32 H Anion Gap 18 14 BUN 6 L 4 L Creatinine 0.5 L 0.5 L Est GFR ( Amer) > 60 > 60 Est GFR (Non-Af Amer) > 60 > 60 Random Glucose 116 H 102 Calcium 7.3 L 7.3 L Phosphorus 2.8 Magnesium 0.6 L* D 1.1 L Total Bilirubin 1.1 AST 63 H D ALT 44 Alkaline Phosphatase 207 H D Total Protein 6.1 L Albumin 2.9 L D Globulin 3.1 Albumin/Globulin Ratio 0.9 L Urine Color Urine Clarity Urine pH Ur Specific [place] Urine Protein Urine Glucose (UA) Urine Ketones Urine Blood Urine Nitrate Urine Bilirubin Urine Urobilinogen Ur Leukocyte Esterase Urine WBC (Auto) Urine RBC (Auto) Hyaline Casts Urine Opiates Screen Urine Methadone Screen Ur Barbiturates Screen Ur Phencyclidine Scrn Ur Amphetamines Screen U Benzodiazepines Scrn U Oth Cocaine Metabols U Cannabinoids Screen Review of Systems - Review of Systems Systems not reviewed;Unavailable: Altered Mental Status Critical Care Progress Note - Nutrition Nutrition: Nutrition Category Date Time Status NPO Diet [DIET] Diets 03/09/17 Dinner Active Assessment/Plan (1) Subarachnoid bleed Assessment and plan: 51 year old homeless male, with PMHx of EtOH Abuse, seizures, Hypertension, Arthritis, Anxiety, COPD, who presents after being found unconscious bleeding from right ear. CT Head showed R mastoid fracture, small subarachnoid and subdural hemorrhage. Neuro: Sedated secondary to Ativan IV while on CIWA protocol. Seizure, either secondary to alcohol withdrawal or subarachnoid hemorrhage, continue seizure prophylaxis with Keppra twice a day. Repeat head CT shows progression of left temporal parenchymal hemorrhage, stable subarachnoid, resolution of subdural. Pulm: No acute issues, breathing spontaneously on room air. CV: Hemodynamically stable, blood pressure within normal range. Hem: No acute issues, anemia of chronic disease. Renal: No acute issues, urine output within normal limits, will monitor. Banana bag 3 days. Endo: No acute issues GI: Nothing by mouth. EtOH cirrhosis. ID: Empiric treatment with cefepime for possibility of aspiration pneumonia. DVT proph - SCDs, holding anticoagulation with current intracranial hemorrhage. GI proph - Protonix IV hdez for strict I/O's during acute illness Code status - full code Crtical Care Time spent 45 minutes Multi-disciplinary rounds were performed with house staff, nursing, speech therapy, respiratory therapy, pharmacy and nutrition with integrated input from the primary team/attending and other consulting services. The documented time is cumulative and includes review of patient data/exams/labs/chart review and examination of the patient on rounds and throughout the day; time is exclusive of any procedures or teaching time. Current Visit: Yes Status: Acute
--- NOTE | 2017-03-10 13:16 | RAD ---
PROCEDURE: CHEST RADIOGRAPH, 1 VIEW. Portable study 07:00. HISTORY: f/u of infiltarte COMPARISON: 03/09/2017. FINDINGS: LUNGS: Interval improvement right lower lobe infiltrate. PLEURA: No pneumothorax or pleural fluid seen. CARDIOVASCULAR: No radiographic findings to suggest acute or significant cardiovascular disease. OSSEOUS STRUCTURES: No significant abnormalities. VISUALIZED UPPER ABDOMEN: Normal. OTHER FINDINGS: None. IMPRESSION: Interval improvement without complete resolution right lower lobe infiltrate identified previously.
--- NOTE | 2017-03-10 14:28 | CP.PCM.PN ---
Subjective - Date & Time of Evaluation Date of Evaluation: 03/10/17 Time of Evaluation: 15:20 - Subjective Subjective: clinically same Objective - Vital Signs/Intake and Output Vital Signs (last 24 hours): Temp Pulse Resp BP Pulse Ox 99.5 F 91 H 22 134/73 94 L 03/10/17 12:00 03/10/17 14:03 03/10/17 14:03 03/10/17 14:03 03/10/17 14:03 Intake and Output: 03/10/17 03/10/17 06:59 18:59 Intake Total 1100 900 Output Total 600 75 Balance 500 825 - Medications Medications: Current Medications Levetiracetam 500 mg/ Sodium (Chloride) 105 mls @ 420 mls/hr IVPB Q12H [facility] Last Admin: 03/10/17 05:16 Dose: 420 mls/hr Cefepime HCl 1 gm/ Dextrose 50 mls @ 100 mls/hr IVPB Q8H [facility] Last Admin: 03/10/17 12:33 Dose: 100 mls/hr Multivitamins/Vitamin C 10 ml/Thiamine HCl 100 mg/ Folic Acid 1 mg/ Sodium Chloride 1,011.2 mls @ 100 mls/hr IV DAILY [facility] Stop: 03/12/17 20:07 Last Admin: 03/10/17 09:25 Dose: 100 mls/hr Lorazepam (Ativan) 1 mg IVP Q4H PRN PRN Reason: Symptoms of alcohol withdrawl Last Admin: 03/10/17 09:24 Dose: 1 mg Pantoprazole Sodium (Protonix Inj) 40 mg IVP DAILY [facility] Last Admin: 03/10/17 13:03 Dose: 40 mg Pneumococcal Polyvalent Vaccine (Pneumovax 23 Vaccine) 0.5 ml IM .ONCE ONE Stop: 03/11/17 10:01 - Labs Labs: 03/10/17 05:50 03/10/17 11:54 PT 15.0 SECONDS (9.7-12.2) H 03/09/17 16:28 INR 1.3 03/09/17 16:28 APTT 36 SECONDS (21-34) H 03/09/17 16:28 - Constitutional Appears: Well - Head Exam Head Exam: ATRAUMATIC, NORMAL INSPECTION, NORMOCEPHALIC - Eye Exam Eye Exam: EOMI, Normal appearance, PERRL Pupil Exam: NORMAL ACCOMODATION, PERRL - ENT Exam ENT Exam: Mucous Membranes Moist, Normal Exam - Neck Exam Neck Exam: Full ROM, Normal Inspection. absent: Lymphadenopathy - Respiratory Exam Respiratory Exam: Decreased Breath Sounds - Cardiovascular Exam Cardiovascular Exam: REGULAR RHYTHM, +S1, +S2 - GI/Abdominal Exam GI & Abdominal Exam: Soft, Diminished Bowel Sounds - Rectal Exam Rectal Exam: Deferred Assessment and Plan (1) Abdominal pain Status: Acute (2) Abrasion Status: Acute (3) Alcohol abuse with intoxication Status: Acute (4) Alcohol intoxication Status: Acute (5) Alcohol withdrawal Status: Acute (6) Alcohol withdrawal seizure Status: Acute (7) Bacteremia Status: Acute (8) Bilateral lower extremity edema Status: Acute (9) Breakthrough seizure Status: Acute (10) Cellulitis Status: Acute (11) Cellulitis of lower extremity Status: Acute (12) Chronic calcific pancreatitis Status: Acute (13) Dehydration Status: Acute (14) Diarrhea Status: Acute (15) Dressing change/suture removal Status: Acute (16) Drug dependence Status: Acute (17) Duodenitis Status: Acute (18) Electrolyte imbalance Status: Acute (19) Elevated alkaline phosphatase level Status: Acute (20) Facial laceration Status: Acute (21) Fever Status: Acute (22) Head trauma Status: Acute (23) Homelessness Status: Acute (24) Hyperphosphatemia Status: Acute (25) Hypokalemia Status: Acute (26) Hypokalemia with normal acid-base balance Status: Acute (27) Hypomagnesemia Status: Acute (28) Hypothermia Status: Acute (29) Low vitamin D level Status: Acute (30) Pancreatic mass Status: Acute (31) Pancreatitis, acute Status: Acute (32) Periapical abscess Status: Acute (33) Pneumonia Status: Acute (34) Pneumonia Status: Acute (35) Prophylactic measure Status: Acute (36) Respiratory failure with hypoxia and hypercapnia Status: Acute (37) Seizure Status: Acute (38) Skull fracture Status: Acute (39) Subarachnoid bleed Status: Acute (40) Subdural hematoma Status: Acute (41) Subdural hemorrhage Status: Acute (42) Thrombocythemia Status: Acute (43) Thrombocytopenia Status: Acute (44) Tobacco abuse Status: Acute (45) Tremors of nervous system Status: Acute (46) Vitamin D deficiency Status: Acute (47) Acute on chronic pancreatitis Status: Chronic (48) Alcohol abuse Status: Chronic (49) Alcohol abuse Status: Chronic (50) Alcohol dependence Status: Chronic (51) Anemia Status: Chronic (52) Anxiety and depression Status: Chronic (53) Aspiration into lower respiratory tract Status: Chronic (54) COPD (chronic obstructive pulmonary disease) Status: Chronic (55) Cholecystitis Status: Chronic (56) Chronic pancreatitis Status: Chronic (57) Depression Status: Chronic (58) Hypertension Status: Chronic (59) Peripheral motor neuropathy Status: Chronic (60) Empyema Status: Suspected - Assessment and Plan (Free Text) Plan: Consult neurologist Continue Ativan Continue antibiotic Continue Protonix
--- NOTE | 2017-03-10 16:17 | CP.PCM.CON ---
History of Present Illness - History of Present Illness History of Present Illness: Pt is a 51 year old homeless male, with PMHx of EtOH Abuse, Hypertension, Arthritis, Anxiety, Pancreatitis, COPD, who presents. Pt is well known to ED staff and presented late last night looking for place to sleep to off his hangover. He returned this afternoon, brought by EMS to ED. EMS report states they found him unconscious, laying on the floor outside with laceration to the right side of head. CT showed R mastoid fracture, small subarachnoid and subdural brain bleeds. Pt had witnessed seizure in ED, and given Ativan IV. Pt post-ictal and not answering questions. Review of Systems - Review of Systems Systems not reviewed;Unavailable: Intubated Past Patient History - Infectious Disease Hx of Infectious Diseases: None - Tetanus Immunizations Tetanus Immunization: Unknown - Past Medical History & Family History Past Medical History?: Yes - Past Social History Smoking Status: Never Smoked - CARDIAC Hx Hypertension: Yes - PULMONARY Hx Chronic Obstructive Pulmonary Disease (COPD): Yes Hx Pneumonia: Yes - NEUROLOGICAL Hx Seizures: Yes - HEENT Hx HEENT Problems: No - ENDOCRINE/METABOLIC Hx Endocrine Disorders: No - HEMATOLOGICAL/ONCOLOGICAL Hx Blood Disorders: No - INTEGUMENTARY Hx Dermatological Problems: Yes Other/Comment: Stage 2 decubitus both buttocks - MUSCULOSKELETAL/RHEUMATOLOGICAL Hx Falls: Yes - GASTROINTESTINAL Hx Pancreatitis: Yes - PSYCHIATRIC Hx Anxiety: Yes Hx Depression: Yes Hx Substance Use: No (DENIED) - SURGICAL HISTORY Hx Surgeries: Yes Other/Comment: left lung surgery - ANESTHESIA Hx Anesthesia: Yes Hx Anesthesia Reactions: No Hx Malignant Hyperthermia: No Meds Home Medications: Home Medication List Medication Instructions Recorded Confirmed Type Acetaminophen [Tylenol 325mg tab] 650 mg PO Q6 PRN tab 05/07/17 Rx Folic Acid 1 mg PO DAILY tab 05/07/17 Rx Multivitamins [Hexavitamin] 1 tab PO DAILY tab 05/07/17 Rx Nicotine 14 mg/24 hr [Nicoderm CQ] 1 patch TD DAILY patch 05/07/17 Rx Thiamine [Vitamin B1 Tab] 100 mg PO DAILY tab 05/07/17 Rx Topiramate [Topamax] 50 mg PO DAILY tab 05/07/17 Rx Allergies/Adverse Reactions: Allergies Allergy/AdvReac Type Severity Reaction Status Date / Time No Known Allergies Allergy Verified 03/09/17 15:19 - Medications Medications: Current Medications Levetiracetam 500 mg/ Sodium (Chloride) 105 mls @ 420 mls/hr IVPB Q12H [facility] Last Admin: 03/10/17 05:16 Dose: 420 mls/hr Cefepime HCl 1 gm/ Dextrose 50 mls @ 100 mls/hr IVPB Q8H [facility] Last Admin: 03/10/17 12:33 Dose: 100 mls/hr Multivitamins/Vitamin C 10 ml/Thiamine HCl 100 mg/ Folic Acid 1 mg/ Sodium Chloride 1,011.2 mls @ 100 mls/hr IV DAILY [facility] Stop: 03/12/17 20:07 Last Admin: 03/10/17 09:25 Dose: 100 mls/hr Lorazepam (Ativan) 1 mg IVP Q4H PRN PRN Reason: Symptoms of alcohol withdrawl Last Admin: 03/10/17 09:24 Dose: 1 mg Pantoprazole Sodium (Protonix Inj) 40 mg IVP DAILY [facility] Last Admin: 03/10/17 13:03 Dose: 40 mg Pneumococcal Polyvalent Vaccine (Pneumovax 23 Vaccine) 0.5 ml IM .ONCE ONE Stop: 03/11/17 10:01 Physical Exam - Head Exam Head Exam: NORMAL INSPECTION - Eye Exam Eye Exam: Normal appearance - ENT Exam ENT Exam: Mucous Membranes Moist - Respiratory Exam Respiratory Exam: Rhonchi - Cardiovascular Exam Cardiovascular Exam: REGULAR RHYTHM, +S1, +S2 - GI/Abdominal Exam GI & Abdominal Exam: Normal Bowel Sounds, Soft - Extremities Exam Extremities exam: Positive for: normal inspection Results - Vital Signs Recent Vital Signs: Last Vital Signs Temp 99.1 F 03/10/17 16:00 Pulse 92 H 03/10/17 16:03 Resp 21 03/10/17 16:03 BP 129/66 03/10/17 16:03 Pulse Ox 95 03/10/17 16:03 - Labs Result Diagrams: 05/07/17 06:00 05/07/17 06:00 Labs: Laboratory Results - last 24 hr 03/09/17 03/09/17 03/10/17 23:17 23:17 05:50 WBC 8.9 RBC 3.99 L Hgb 9.9 L Hct 31.8 L MCV 79.7 L MCH 24.8 L MCHC 31.1 L RDW 20.1 H Plt Count 104 L D MPV 9.0 Neut % (Auto) 86.5 H Lymph % (Auto) 8.0 L [place] % (Auto) 4.8 Eos % (Auto) 0.2 Baso % (Auto) 0.5 Neut # 7.7 H Lymph # 0.7 L [place] # 0.4 Eos # 0.0 Baso # 0.0 Neutrophils % (Manual) 89 H Band Neutrophils % 1 Lymphocytes % (Manual) 5 L Monocytes % (Manual) 3 Eosinophils % (Manual) 2 Platelet Estimate Slightly decreased L Large Platelets Present Polychromasia Slight Hypochromasia (manual) Slight Anisocytosis (manual) Slight Sodium Potassium Chloride Carbon Dioxide Anion Gap BUN Creatinine Est GFR ( Amer) Est GFR (Non-Af Amer) Random Glucose Calcium Phosphorus Magnesium Total Bilirubin AST ALT Alkaline Phosphatase Total Protein Albumin Globulin Albumin/Globulin Ratio Urine Color Straw Urine Clarity Clear Urine pH 6.0 Ur Specific [place] 1.011 Urine Protein Negative Urine Glucose (UA) Normal Urine Ketones Trace Urine Blood Negative Urine Nitrate Negative Urine Bilirubin Negative Urine Urobilinogen Normal Ur Leukocyte Esterase Neg Urine WBC (Auto) 1 Urine RBC (Auto) 1 Hyaline Casts 3-5 H Urine Opiates Screen Negative Urine Methadone Screen Negative Ur Barbiturates Screen Negative Ur Phencyclidine Scrn Negative Ur Amphetamines Screen Negative U Benzodiazepines Scrn Negative U Oth Cocaine Metabols Negative U Cannabinoids Screen Negative 03/10/17 03/10/17 05:50 11:54 WBC RBC Hgb Hct MCV MCH MCHC RDW Plt Count MPV Neut % (Auto) Lymph % (Auto) [place] % (Auto) Eos % (Auto) Baso % (Auto) Neut # Lymph # [place] # Eos # Baso # Neutrophils % (Manual) Band Neutrophils % Lymphocytes % (Manual) Monocytes % (Manual) Eosinophils % (Manual) Platelet Estimate Large Platelets Polychromasia Hypochromasia (manual) Anisocytosis (manual) Sodium 135 132 Potassium 3.4 L 3.7 Chloride 91 L 90 L Carbon Dioxide 29 32 H Anion Gap 18 14 BUN 6 L 4 L Creatinine 0.5 L 0.5 L Est GFR ( Amer) > 60 > 60 Est GFR (Non-Af Amer) > 60 > 60 Random Glucose 116 H 102 Calcium 7.3 L 7.3 L Phosphorus 2.8 Magnesium 0.6 L* D 1.1 L Total Bilirubin 1.1 AST 63 H D ALT 44 Alkaline Phosphatase 207 H D Total Protein 6.1 L Albumin 2.9 L D Globulin 3.1 Albumin/Globulin Ratio 0.9 L Urine Color Urine Clarity Urine pH Ur Specific [place] Urine Protein Urine Glucose (UA) Urine Ketones Urine Blood Urine Nitrate Urine Bilirubin Urine Urobilinogen Ur Leukocyte Esterase Urine WBC (Auto) Urine RBC (Auto) Hyaline Casts Urine Opiates Screen Urine Methadone Screen Ur Barbiturates Screen Ur Phencyclidine Scrn Ur Amphetamines Screen U Benzodiazepines Scrn U Oth Cocaine Metabols U Cannabinoids Screen Assessment & Plan - Assessment and Plan (Free Text) Assessment: Acute respiratory failure Pneumonia COPD Right mastoid fracture Subarachnoid hemorrhage Subdural hemorrhage Seizures History of alcohol abuse Continue full vent support Antibiotics as ordered Bronchodilators Neurology follow-up Neurosurgery follow-up Repeat CT chest Seizure prophylaxis Observe for alcohol withdrawal Thiamine and folate DVT/GI prophylaxis
[2017-03-10] MEDS ORDERED: Dexmedetomidine Hydrochloride 200 MCG in Sodium Chloride 0.9% 48 ML IV PRN (20:25)
[2017-03-10 21:44] LABS: CHLORIDE 88 mmol/L (98-107); POTASSIUM 3.6 mmol/L (3.6-5.2); SODIUM 127 mmol/L (132-148)
[2017-03-10 21:47] LABS: BLOOD UREA NITROGEN 3 mg/dL (9-20); CARBON DIOXIDE 33 mmol/L (22-30); GFR AFRICAN-AMERICAN > 60; GLUCOSE,RANDOM 109 mg/dL (75-110); PHOSPHOROUS 2.2 mg/dL (2.5-4.5)
[2017-03-10 21:48] LABS: CALCIUM 7.3 mg/dl (8.6-10.4); MAGNESIUM 1.3 mg/dL (1.6-2.3)
[2017-03-10] MEDS ORDERED: Potassium Chloride 20 mEq/15 ml LIQ UD PO ONE ×2 (22:00→23:15)
[2017-03-10] MEDS ORDERED: Propofol 10 mg/ml Inj (20 ML) IV ONE ×2 (22:00→22:40)
[2017-03-10] MEDS ORDERED: Midazolam 2 MG/2 ML VIAL IVP ONE (22:00)
[2017-03-10] MEDS: Sodium Chloride 0.9% 1,000 ML IV SCH (22:00)
[2017-03-10] MEDS ORDERED: Propofol 10 mg/ml Inj (20 ML) ONE (22:15)
--- NOTE | 2017-03-10 23:01 | CP.CCUPN ---
CCU Subjective - Physician Review Events Since Last Encounter (Free Text): 03/10/17 23:01 Patient admitted for alcohol withdrawal and brain bleed, very agitated despite ativan and precedex at maximum dose. Intubated for alcohol withdrawal on first attempt with a martin #4, very deep and anterior. Left upper first frontal was very loose and turned and came out during intubation, recovered tooth from the mouth and placed in a bag. CCU Objective - Vital Signs / Intake & Output Vital Signs (Last 4 hours): Vital Signs Pulse Resp BP Pulse Ox 03/10/17 19:03 91 H 20 132/69 93 L 03/10/17 19:00 91 H 26 H 92 L Intake and Output (Last 8hrs): Intake & Output 03/10/17 03/10/17 03/10/17 06:59 14:59 22:59 Intake Total 800 900 500 Output Total 75 Balance 800 825 500 Weight 150 lb Intake: IV 0 Intake, IV Amount 800 900 500 Left Forearm 800 800 500 Left foreaerm 100 Output: Urine 75 Urine, Voided 75 Other: # Bowel Movements 1 1 - Physical Exam Head: Positive for: Normocephalic, Abrasion Pupils: Positive for: PERRL Extroacular Muscles: Positive for: EOMI Mouth: Positive for: Moist Mucous Membranes Respiratory/Chest: Positive for: Clear to Auscultation, Good Air Exchange. Negative for: Respiratory Distress Cardiovascular: Positive for: Regular Rate and Rhythm, Normal S1, S2 Abdomen: Positive for: Normal Bowel Sounds. Negative for: Tenderness, Distention Psychiatric: Positive for: Alert - Medications Active Medications: Active Medications Generic Name Dose Route Start Last Admin Trade Name Tabq PRN Reason Stop Dose Admin Levetiracetam 500 mg/ Sodium 105 mls @ 420 mls/hr 03/09/17 18:15 03/10/17 17: 41 Chloride IVPB 420 mls/hr Q12H JÚNIOR Administration Cefepime HCl 1 gm/ Dextrose 50 mls @ 100 mls/hr 03/09/17 21:00 03/10/17 21:30 IVPB 100 mls/hr Q8H JÚNIOR Administration Multivitamins/Vitamin C 10 ml/ 1,011.2 mls @ 100 mls/hr 03/10/17 10:00 09:25 Thiamine HCl 100 mg/ Folic IV 03/12/17 20:07 100 mls/hr Acid 1 mg/ Sodium Chloride DAILY JÚNIOR Administration Dexmedetomidine HCl 200 mcg/ 50 mls @ 3.4 mls/hr 03/10/17 20:25 03/10/17 21: 51 Sodium Chloride IV 1.99 mcg/kg/hr TITR PRN 34 mls/hr Agitation Titration Protocol 0.2 MCG/KG/HR Sodium Chloride 1,000 mls @ 100 mls/hr 03/10/17 21:15 Sodium Chloride 0.9% IV .Q10H JÚNIOR Magnesium Sulfate/Dextrose 1 gm in 100 mls @ 300 mls/hr 03/10/17 22:00 22:35 Magnesium Sulfate 1 Gm/100 Ml D5w IVPB 03/10/17 23:49 300 mls/hr Q30M JÚNIOR Administration Propofol 1,000 mg in 100 mls @ 2.041 mls/hr 03/10/17 22:00 Diprivan IV .Q24H PRN TITRATE PER MD ORDER Protocol 5 MCG/KG/MIN Lorazepam 1 mg 03/09/17 18:46 03/10/17 18:26 Ativan IVP 1 mg Q4H PRN Administration Symptoms of alcohol withdrawl Pantoprazole Sodium 40 mg 03/10/17 13:00 03/10/17 13:03 Protonix Inj IVP 40 mg DAILY JÚNIOR Administration Pneumococcal Polyvalent Vaccine 0.5 ml 03/11/17 10:00 Pneumovax 23 Vaccine IM 03/11/17 10:01 .ONCE ONE Quetiapine Fumarate 50 mg 03/10/17 22:45 Seroquel PO Q8 JÚNIOR - Patient Studies Lab Studies: Lab Studies 03/10/17 03/10/17 03/10/17 Range/Units 21:23 11:54 05:50 WBC (4.8-10.8) K/uL RBC (4.40-5.90) Mil/uL Hgb (12.0-18.0) g/dL Hct (35.0-51.0) % MCV (80.0-94.0) fL MCH (27.0-31.0) pg MCHC (33.0-37.0) g/dL RDW (11.5-14.5) % Plt Count (130-400) K/uL MPV (7.2-11.7) fL Neut % (Auto) (50.0-75.0) % Lymph % (Auto) (20.0-40.0) % [place] % (Auto) (0.0-10.0) % Eos % (Auto) (0.0-4.0) % Baso % (Auto) (0.0-2.0) % Neut # (1.8-7.0) K/uL Lymph # (1.0-4.3) K/uL [place] # (0.0-0.8) K/uL Eos # (0.0-0.7) K/uL Baso # (0.0-0.2) K/uL Neutrophils % (Manual) (50-75) % Band Neutrophils % (0-2) % Lymphocytes % (Manual) (20-40) % Monocytes % (Manual) (0-10) % Eosinophils % (Manual) (0-4) % Platelet Estimate (NORMAL) Large Platelets Polychromasia Hypochromasia (manual) Anisocytosis (manual) Sodium 127 L 132 135 (132-148) mmol/L Potassium 3.6 3.7 3.4 L (3.6-5.2) mmol/L Chloride 88 L 90 L 91 L (98-107) mmol/L Carbon Dioxide 33 H 32 H 29 (22-30) mmol/L Anion Gap 10 14 18 (10-20) BUN 3 L 4 L 6 L (9-20) mg/dL Creatinine 0.5 L 0.5 L 0.5 L (0.8-1.5) MG/DL Est GFR ( Amer) > 60 > 60 > 60 Est GFR (Non-Af Amer) > 60 > 60 > 60 Random Glucose 109 102 116 H (75-110) mg/dL Calcium 7.3 L 7.3 L 7.3 L (8.6-10.4) mg/dl Phosphorus 2.2 L 2.8 (2.5-4.5) mg/dL Magnesium 1.3 L 1.1 L 0.6 L* D (1.6-2.3) mg/dL Total Bilirubin 1.1 (0.2-1.3) mg/dL AST 63 H D (17-59) U/L ALT 44 (21-72) U/L Alkaline Phosphatase 207 H D (38-126) U/L Total Protein 6.1 L (6.3-8.3) g/dL Albumin 2.9 L D (3.5-5.0) g/dL Globulin 3.1 (2.2-3.9) gm/dL Albumin/Globulin Ratio 0.9 L (1.0-2.1) Urine Color (YELLOW) Urine Clarity (Clear) Urine pH (5.0-8.0) Ur Specific [place] (1.003-1.030) Urine Protein (NEGATIVE) mg/dL Urine Glucose (UA) (Normal) mg/dL Urine Ketones (NEGATIVE) mg/dL Urine Blood (NEGATIVE) Urine Nitrate (NEGATIVE) Urine Bilirubin (NEGATIVE) Urine Urobilinogen (0.2-1.0) mg/dL Ur Leukocyte Esterase (Negative) Senthil/uL Urine WBC (Auto) (0-5) /hpf Urine RBC (Auto) (0-3) /hpf Hyaline Casts (0-2) /lpf Urine Opiates Screen (NEGATIVE) Urine Methadone Screen (NEGATIVE) Ur Barbiturates Screen (NEGATIVE) Ur Phencyclidine Scrn (NEGATIVE) Ur Amphetamines Screen (NEGATIVE) U Benzodiazepines Scrn (NEGATIVE) U Oth Cocaine Metabols (NEGATIVE) U Cannabinoids Screen (NEGATIVE) 03/10/17 03/09/17 03/09/17 Range/Units 05:50 23:17 23:17 WBC 8.9 (4.8-10.8) K/uL RBC 3.99 L (4.40-5.90) Mil/uL Hgb 9.9 L (12.0-18.0) g/dL Hct 31.8 L (35.0-51.0) % MCV 79.7 L (80.0-94.0) fL MCH 24.8 L (27.0-31.0) pg MCHC 31.1 L (33.0-37.0) g/dL RDW 20.1 H (11.5-14.5) % Plt Count 104 L D (130-400) K/uL MPV 9.0 (7.2-11.7) fL Neut % (Auto) 86.5 H (50.0-75.0) % Lymph % (Auto) 8.0 L (20.0-40.0) % [place] % (Auto) 4.8 (0.0-10.0) % Eos % (Auto) 0.2 (0.0-4.0) % Baso % (Auto) 0.5 (0.0-2.0) % Neut # 7.7 H (1.8-7.0) K/uL Lymph # 0.7 L (1.0-4.3) K/uL [place] # 0.4 (0.0-0.8) K/uL Eos # 0.0 (0.0-0.7) K/uL Baso # 0.0 (0.0-0.2) K/uL Neutrophils % (Manual) 89 H (50-75) % Band Neutrophils % 1 (0-2) % Lymphocytes % (Manual) 5 L (20-40) % Monocytes % (Manual) 3 (0-10) % Eosinophils % (Manual) 2 (0-4) % Platelet Estimate Slightly decreased L (NORMAL) Large Platelets Present Polychromasia Slight Hypochromasia (manual) Slight Anisocytosis (manual) Slight Sodium (132-148) mmol/L Potassium (3.6-5.2) mmol/L Chloride (98-107) mmol/L Carbon Dioxide (22-30) mmol/L Anion Gap (10-20) BUN (9-20) mg/dL Creatinine (0.8-1.5) MG/DL Est GFR ( Amer) Est GFR (Non-Af Amer) Random Glucose (75-110) mg/dL Calcium (8.6-10.4) mg/dl Phosphorus (2.5-4.5) mg/dL Magnesium (1.6-2.3) mg/dL Total Bilirubin (0.2-1.3) mg/dL AST (17-59) U/L ALT (21-72) U/L Alkaline Phosphatase (38-126) U/L Total Protein (6.3-8.3) g/dL Albumin (3.5-5.0) g/dL Globulin (2.2-3.9) gm/dL Albumin/Globulin Ratio (1.0-2.1) Urine Color Straw (YELLOW) Urine Clarity Clear (Clear) Urine pH 6.0 (5.0-8.0) Ur Specific [place] 1.011 (1.003-1.030) Urine Protein Negative (NEGATIVE) mg/dL Urine Glucose (UA) Normal (Normal) mg/dL Urine Ketones Trace (NEGATIVE) mg/dL Urine Blood Negative (NEGATIVE) Urine Nitrate Negative (NEGATIVE) Urine Bilirubin Negative (NEGATIVE) Urine Urobilinogen Normal (0.2-1.0) mg/dL Ur Leukocyte Esterase Neg (Negative) Senthil/uL Urine WBC (Auto) 1 (0-5) /hpf Urine RBC (Auto) 1 (0-3) /hpf Hyaline Casts 3-5 H (0-2) /lpf Urine Opiates Screen Negative (NEGATIVE) Urine Methadone Screen Negative (NEGATIVE) Ur Barbiturates Screen Negative (NEGATIVE) Ur Phencyclidine Scrn Negative (NEGATIVE) Ur Amphetamines Screen Negative (NEGATIVE) U Benzodiazepines Scrn Negative (NEGATIVE) U Oth Cocaine Metabols Negative (NEGATIVE) U Cannabinoids Screen Negative (NEGATIVE) Laboratory Results - last 24 hr 03/09/17 03/09/17 03/10/17 23:17 23:17 05:50 WBC 8.9 RBC 3.99 L Hgb 9.9 L Hct 31.8 L MCV 79.7 L MCH 24.8 L MCHC 31.1 L RDW 20.1 H Plt Count 104 L D MPV 9.0 Neut % (Auto) 86.5 H Lymph % (Auto) 8.0 L [place] % (Auto) 4.8 Eos % (Auto) 0.2 Baso % (Auto) 0.5 Neut # 7.7 H Lymph # 0.7 L [place] # 0.4 Eos # 0.0 Baso # 0.0 Neutrophils % (Manual) 89 H Band Neutrophils % 1 Lymphocytes % (Manual) 5 L Monocytes % (Manual) 3 Eosinophils % (Manual) 2 Platelet Estimate Slightly decreased L Large Platelets Present Polychromasia Slight Hypochromasia (manual) Slight Anisocytosis (manual) Slight Sodium Potassium Chloride Carbon Dioxide Anion Gap BUN Creatinine Est GFR ( Amer) Est GFR (Non-Af Amer) Random Glucose Calcium Phosphorus Magnesium Total Bilirubin AST ALT Alkaline Phosphatase Total Protein Albumin Globulin Albumin/Globulin Ratio Urine Color Straw Urine Clarity Clear Urine pH 6.0 Ur Specific [place] 1.011 Urine Protein Negative Urine Glucose (UA) Normal Urine Ketones Trace Urine Blood Negative Urine Nitrate Negative Urine Bilirubin Negative Urine Urobilinogen Normal Ur Leukocyte Esterase Neg Urine WBC (Auto) 1 Urine RBC (Auto) 1 Hyaline Casts 3-5 H Urine Opiates Screen Negative Urine Methadone Screen Negative Ur Barbiturates Screen Negative Ur Phencyclidine Scrn Negative Ur Amphetamines Screen Negative U Benzodiazepines Scrn Negative U Oth Cocaine Metabols Negative U Cannabinoids Screen Negative 03/10/17 03/10/17 03/10/17 05:50 11:54 21:23 WBC RBC Hgb Hct MCV MCH MCHC RDW Plt Count MPV Neut % (Auto) Lymph % (Auto) [place] % (Auto) Eos % (Auto) Baso % (Auto) Neut # Lymph # [place] # Eos # Baso # Neutrophils % (Manual) Band Neutrophils % Lymphocytes % (Manual) Monocytes % (Manual) Eosinophils % (Manual) Platelet Estimate Large Platelets Polychromasia Hypochromasia (manual) Anisocytosis (manual) Sodium 135 132 127 L Potassium 3.4 L 3.7 3.6 Chloride 91 L 90 L 88 L Carbon Dioxide 29 32 H 33 H Anion Gap 18 14 10 BUN 6 L 4 L 3 L Creatinine 0.5 L 0.5 L 0.5 L Est GFR ( Amer) > 60 > 60 > 60 Est GFR (Non-Af Amer) > 60 > 60 > 60 Random Glucose 116 H 102 109 Calcium 7.3 L 7.3 L 7.3 L Phosphorus 2.8 2.2 L Magnesium 0.6 L* D 1.1 L 1.3 L Total Bilirubin 1.1 AST 63 H D ALT 44 Alkaline Phosphatase 207 H D Total Protein 6.1 L Albumin 2.9 L D Globulin 3.1 Albumin/Globulin Ratio 0.9 L Urine Color Urine Clarity Urine pH Ur Specific [place] Urine Protein Urine Glucose (UA) Urine Ketones Urine Blood Urine Nitrate Urine Bilirubin Urine Urobilinogen Ur Leukocyte Esterase Urine WBC (Auto) Urine RBC (Auto) Hyaline Casts Urine Opiates Screen Urine Methadone Screen Ur Barbiturates Screen Ur Phencyclidine Scrn Ur Amphetamines Screen U Benzodiazepines Scrn U Oth Cocaine Metabols U Cannabinoids Screen Critical Care Progress Note - Nutrition Nutrition: Nutrition Category Date Time Status NPO Diet [DIET] Diets 03/09/17 Dinner Active
[2017-03-10] MEDS: Propofol 10 mg/ml 1,000 MG/100 ML VIAL IV PRN (23:20)
[2017-03-10 23:36] LABS: ABG MECHANICAL RATE 14; ARTERIAL BLOOD HGB O2 SAT 93.6 % (95.0-98.0); ATERIAL BLOOD GAS PEEP 5; CARBOXYHEMOGLOBIN 2.6 % (0.5-1.5); DRAW SITE RB; HHB 2.6 % (0.0-5.0); METHEMOGLOBIN 1.2 % (0.0-3.0)
[2017-03-11] MEDS: Magnesium Sulfate 1 gm in D5W 1 GM/100 ML BAG IVPB SCH (00:04)
[2017-03-11] MEDS ORDERED: Sodium Chloride 0.9% 500 ML IV ONE (02:10)
[2017-03-11] MEDS ORDERED: Sodium Chloride 0.9% 1,000 ML IV ONE (03:15)
[2017-03-11] MEDS: levETIRAcetam 500 MG in Sodium Chloride 0.9% 100 ML IVPB SCH ×2 (05:52→17:58)
[2017-03-11 06:03] LABS: ABG MECHANICAL RATE 14; ARTERIAL BLOOD HGB O2 SAT 90.2 % (95.0-98.0); ATERIAL BLOOD GAS PEEP 5; CARBOXYHEMOGLOBIN 2.7 % (0.5-1.5); DRAW SITE RB; HHB 6.1 % (0.0-5.0)
[2017-03-11 06:57] LABS: BASO % 0.8 % (0.0-2.0); EOS # 0.1 K/uL (0.0-0.7); EOS % 1.9 % (0.0-4.0); HEMATOCRIT 28.3 % (35.0-51.0); LYMPH # 1.1 K/uL (1.0-4.3); MEAN CELL VOLUME 79.8 fL (80.0-94.0); MEAN CORPUSCULAR HEMOGLOBIN 24.9 pg (27.0-31.0); MEAN CORPUSCULAR HGB CONC 31.2 g/dL (33.0-37.0); MEAN PLATELET VOLUME 9.1 fL (7.2-11.7); MONO # 0.3 K/uL (0.0-0.8); MONO % 6.1 % (0.0-10.0); RED CELL DISTRIBUTION WIDTH 19.9 % (11.5-14.5); WHITE BLOOD COUNT 5.3 K/uL (4.8-10.8)
[2017-03-11 07:03] LABS: CHLORIDE 93 mmol/L (98-107); POTASSIUM 3.8 mmol/L (3.6-5.2); SODIUM 130 mmol/L (132-148)
[2017-03-11 07:05] LABS: BILIRUBIN,TOTAL 1.1 mg/dL (0.2-1.3); GFR AFRICAN-AMERICAN > 60
[2017-03-11] MEDS: Propofol 10 mg/ml 1,000 MG/100 ML VIAL IV PRN ×5 (07:05→22:25)
[2017-03-11 07:06] LABS: ALB/GLOB RATIO 0.9 (1.0-2.1); ALKALINE PHOSPHATASE 182 U/L (38-126); ALT/SGPT 40 U/L (21-72); AST/SGOT 54 U/L (17-59); BLOOD UREA NITROGEN 4 mg/dL (9-20); CARBON DIOXIDE 27 mmol/L (22-30); GLUCOSE,RANDOM 92 mg/dL (75-110); TOTAL PROTEIN 5.7 g/dL (6.3-8.3)
[2017-03-11 07:07] LABS: CALCIUM 6.9 mg/dl (8.6-10.4)
[2017-03-11] MEDS: Sodium Chloride 0.9% 1,000 ML IV SCH (07:15)
--- NOTE | 2017-03-11 09:50 | CT ---
PROCEDURE: CT HEAD WITHOUT CONTRAST. HISTORY: f/u COMPARISON: Multiple serial examinations preceding the most recent study: March 10, 2017. At 10:13. TECHNIQUE: Axial computed tomography images were obtained through the head/brain without intravenous contrast. Radiation dose: Total exam DLP = 971.66 mGy-cm. This CT exam was performed using one or more of the following dose reduction techniques: Automated exposure control, adjustment of the mA and/or kV according to patient size, and/or use of iterative reconstruction technique. FINDINGS: HEMORRHAGE: Interval improvement/ decrease in the acute hemorrhagic components in particular left temporal lobe. Extra-axial blood is stable. Areas of subarachnoid hemorrhage demonstrate modest interval improvement. BRAIN: No significant interval change compared to the prior examination(s). VENTRICLES: Unremarkable. No hydrocephalus. CALVARIUM: Unremarkable. PARANASAL SINUSES: Unremarkable as visualized. No significant inflammatory changes. MASTOID AIR CELLS: Unremarkable as visualized. No inflammatory changes. OTHER FINDINGS: None. IMPRESSION: Interval improvement and parenchymal and subarachnoid hemorrhage. No new areas of hemorrhage, edema or mass effect.
[2017-03-11] MEDS ORDERED: Pneumococcal 23-Valent Vaccine IM ONE (10:00)
[2017-03-11] MEDS: Multivitamin (MVI) 10 ML, Thiamine 100 MG, Folic Acid 1 MG in Sodium Chloride 0.9% 1,00... IV SCH (10:00)
[2017-03-11] MEDS ORDERED: Sodium Chloride 0.9% 1,000 ML IV SCH (10:30)
[2017-03-11] MEDS ORDERED: Iodixanol 320 MG/ML 100 ML BOTTLE IV ONE ×2 (11:47→12:42)
--- NOTE | 2017-03-11 11:50 | CP.PCM.PN ---
Subjective - Date & Time of Evaluation Date of Evaluation: 03/11/17 Time of Evaluation: 11:49 - Subjective Subjective: ct unchanged clinically stable ok to transfer to floor Objective - Vital Signs/Intake and Output Vital Signs (last 24 hours): Temp Pulse Resp BP Pulse Ox 100.4 F H 93 H 20 116/61 97 03/11/17 08:00 03/11/17 11:03 03/11/17 11:03 03/11/17 11:03 03/11/17 11:03 Intake and Output: 03/11/17 03/11/17 06:59 18:59 Intake Total 2940.2 938.4 Output Total 350 355 Balance 2590.2 583.4 - Medications Medications: Current Medications Levetiracetam 500 mg/ Sodium (Chloride) 105 mls @ 420 mls/hr IVPB Q12H [facility] Last Admin: 03/11/17 05:52 Dose: 420 mls/hr Cefepime HCl 1 gm/ Dextrose 50 mls @ 100 mls/hr IVPB Q8H [facility] Last Admin: 03/11/17 05:03 Dose: 100 mls/hr Multivitamins/Vitamin C 10 ml/Thiamine HCl 100 mg/ Folic Acid 1 mg/ Sodium Chloride 1,011.2 mls @ 100 mls/hr IV DAILY [facility] Stop: 03/12/17 20:07 Last Admin: 03/11/17 10:00 Dose: 100 mls/hr Propofol (Diprivan) 1,000 mg in 100 mls @ 2.041 mls/hr IV .Q24H PRN; Protocol; 5 MCG/KG/MIN PRN Reason: TITRATE PER MD ORDER Last Admin: 03/11/17 11:27 Dose: 60 mcg/kg/min, 24.494 mls/hr Sodium Chloride (Sodium Chloride 0.9%) 1,000 mls @ 100 mls/hr IV .Q10H [facility] Stop: 03/11/17 16:00 Last Admin: 03/11/17 10:30 Dose: 100 mls/hr Lorazepam (Ativan) 1 mg IVP Q4H PRN PRN Reason: Symptoms of alcohol withdrawl Last Admin: 03/11/17 04:49 Dose: 1 mg Pantoprazole Sodium (Protonix Inj) 40 mg IVP DAILY [facility] Last Admin: 03/11/17 10:29 Dose: 40 mg - Labs Labs: 03/11/17 06:46 03/11/17 06:46 PT 15.0 SECONDS (9.7-12.2) H 03/09/17 16:28 INR 1.3 03/09/17 16:28 APTT 36 SECONDS (21-34) H 03/09/17 16:28
--- NOTE | 2017-03-11 12:24 | RAD ---
HISTORY: Post intubation. Portable study 11:04. COMPARISON: Multiple serial examinations preceding the most recent study: March 10, 2017. . 07:00. FINDINGS: LUNGS: Progressive lower lobe infiltrates. PLEURA: No significant pleural effusion identified, no pneumothorax apparent. CARDIOVASCULAR: No radiographic findings to suggest acute or significant cardiovascular disease. OSSEOUS STRUCTURES: No significant abnormalities. VISUALIZED UPPER ABDOMEN: Normal. OTHER FINDINGS: Endotracheal tube in satisfactory position 4 cm above the nneka. The tip of the nasogastric tube appears at the level of the nneka. IMPRESSION: Satisfactory position recently placed endotracheal tube. Improperly positioned nasogastric tube, the tip is in the midesophagus. Progressive bilateral infiltrates.
--- NOTE | 2017-03-11 12:42 | CP.CCUPN ---
CCU Subjective - Physician Review Events Since Last Encounter (Free Text): 03/11/17 12:35 Intubated and sedated on vent CCU Objective - Vital Signs / Intake & Output Vital Signs (Last 4 hours): Vital Signs Temp Pulse Resp BP Pulse Ox 03/11/17 11:53 100.1 F H 105 H 98 03/11/17 11:03 93 H 20 116/61 97 03/11/17 11:00 91 H 21 97 03/11/17 10:03 81 19 124/70 99 03/11/17 10:00 81 20 100 03/11/17 09:04 95 H 18 106/65 95 03/11/17 09:00 83 20 97 Intake and Output (Last 8hrs): Intake & Output 03/10/17 03/11/17 03/11/17 22:59 06:59 14:59 Intake Total 770.4 2569.8 1092.8 Output Total 350 435 Balance 770.4 2219.8 657.8 Intake: IV 0 0 200 Intake, IV Amount 770.4 2569.8 742.8 Left Forearm 750 2450 600 Left Upper arm 0 right lower hand 85.8 142.8 right upper hand 20.4 34 Tube Feeding 150 Output: Urine 350 435 Urethral (Hdez) 350 435 Stool 0 Emesis 0 - Physical Exam Head: Positive for: Normocephalic, Abrasion Pupils: Positive for: PERRL Extroacular Muscles: Positive for: EOMI Mouth: Positive for: Moist Mucous Membranes Respiratory/Chest: Positive for: Clear to Auscultation, Good Air Exchange. Negative for: Respiratory Distress Cardiovascular: Positive for: Regular Rate and Rhythm, Normal S1, S2 Abdomen: Positive for: Normal Bowel Sounds. Negative for: Tenderness, Distention Neurological: Positive for: Other (Sedated) Psychiatric: Positive for: Alert - Medications Active Medications: Active Medications Generic Name Dose Route Start Last Admin Trade Name Freq PRN Reason Stop Dose Admin Levetiracetam 500 mg/ Sodium 105 mls @ 420 mls/hr 03/09/17 18:15 03/11/17 05: 52 Chloride IVPB 420 mls/hr Q12H JÚNIOR Administration Cefepime HCl 1 gm/ Dextrose 50 mls @ 100 mls/hr 03/09/17 21:00 03/11/17 05:03 IVPB 100 mls/hr Q8H JÚNIOR Administration Multivitamins/Vitamin C 10 ml/ 1,011.2 mls @ 100 mls/hr 03/10/17 10:00 10:00 Thiamine HCl 100 mg/ Folic IV 03/12/17 20:07 100 mls/hr Acid 1 mg/ Sodium Chloride DAILY JÚNIOR Administration Propofol 1,000 mg in 100 mls @ 2.041 mls/hr 03/10/17 22:00 03/11/17 11:27 Diprivan IV 60 mcg/kg/min .Q24H PRN 24.494 mls/hr TITRATE PER MD ORDER Administration Protocol 5 MCG/KG/MIN Sodium Chloride 1,000 mls @ 100 mls/hr 03/11/17 10:30 03/11/17 10:30 Sodium Chloride 0.9% IV 03/11/17 16:00 100 mls/hr .Q10H JÚNIOR Administration Lorazepam 1 mg 03/09/17 18:46 03/11/17 04:49 Ativan IVP 1 mg Q4H PRN Administration Symptoms of alcohol withdrawl Pantoprazole Sodium 40 mg 03/10/17 13:00 03/11/17 10:29 Protonix Inj IVP 40 mg DAILY JÚNIOR Administration - Patient Studies Lab Studies: Lab Studies 03/11/17 03/11/17 03/11/17 Range/Units 06:46 06:46 05:55 WBC 5.3 (4.8-10.8) K/uL RBC 3.54 L (4.40-5.90) Mil/uL Hgb 8.8 L (12.0-18.0) g/dL Hct 28.3 L (35.0-51.0) % MCV 79.8 L (80.0-94.0) fL MCH 24.9 L (27.0-31.0) pg MCHC 31.2 L (33.0-37.0) g/dL RDW 19.9 H (11.5-14.5) % Plt Count 90 L (130-400) K/uL MPV 9.1 (7.2-11.7) fL Neut % (Auto) 71.2 (50.0-75.0) % Lymph % (Auto) 20.0 (20.0-40.0) % [place] % (Auto) 6.1 (0.0-10.0) % Eos % (Auto) 1.9 (0.0-4.0) % Baso % (Auto) 0.8 (0.0-2.0) % Neut # 3.8 (1.8-7.0) K/uL Lymph # 1.1 (1.0-4.3) K/uL [place] # 0.3 (0.0-0.8) K/uL Eos # 0.1 (0.0-0.7) K/uL Baso # 0.0 (0.0-0.2) K/uL Puncture Site Rb pCO2 31 L (35-45) mm/Hg pO2 50 L (80-100) mm/Hg HCO3 29.1 H (21-28) mmol/L ABG pH 7.56 H (7.35-7.45) ABG Total CO2 28.8 H (22-28) mmol/L ABG O2 Saturation 93.7 L (95-98) % ABG Base Excess 5.5 H (-2.0-3.0) mmol/L ABG Hemoglobin 8.6 L (11.7-17.4) g/dL ABG Carboxyhemoglobin 2.7 H (0.5-1.5) % POC ABG HHb (Measured) 6.1 H (0.0-5.0) % ABG Methemoglobin 1.0 (0.0-3.0) % Mitesh Test Na A-a O2 Difference 196.0 mm/Hg Respiratory Index 3.9 Hgb O2 Saturation 90.2 L (95.0-98.0) % Mechanical Rate 14 FiO2 40.0 % Tidal Volume 450 PEEP 5 Sodium 130 L (132-148) mmol/L Potassium 3.8 (3.6-5.2) mmol/L Chloride 93 L (98-107) mmol/L Carbon Dioxide 27 (22-30) mmol/L Anion Gap 14 (10-20) BUN 4 L (9-20) mg/dL Creatinine 0.5 L (0.8-1.5) MG/DL Est GFR ( Amer) > 60 Est GFR (Non-Af Amer) > 60 Random Glucose 92 (75-110) mg/dL Calcium 6.9 L (8.6-10.4) mg/dl Phosphorus 2.0 L (2.5-4.5) mg/dL Magnesium 2.0 (1.6-2.3) mg/dL Total Bilirubin 1.1 (0.2-1.3) mg/dL AST 54 (17-59) U/L ALT 40 (21-72) U/L Alkaline Phosphatase 182 H (38-126) U/L Total Protein 5.7 L (6.3-8.3) g/dL Albumin 2.6 L (3.5-5.0) g/dL Globulin 3.0 (2.2-3.9) gm/dL Albumin/Globulin Ratio 0.9 L (1.0-2.1) 03/10/17 03/10/17 Range/Units 23:30 21:23 WBC (4.8-10.8) K/uL RBC (4.40-5.90) Mil/uL Hgb (12.0-18.0) g/dL Hct (35.0-51.0) % MCV (80.0-94.0) fL MCH (27.0-31.0) pg MCHC (33.0-37.0) g/dL RDW (11.5-14.5) % Plt Count (130-400) K/uL MPV (7.2-11.7) fL Neut % (Auto) (50.0-75.0) % Lymph % (Auto) (20.0-40.0) % [place] % (Auto) (0.0-10.0) % Eos % (Auto) (0.0-4.0) % Baso % (Auto) (0.0-2.0) % Neut # (1.8-7.0) K/uL Lymph # (1.0-4.3) K/uL [place] # (0.0-0.8) K/uL Eos # (0.0-0.7) K/uL Baso # (0.0-0.2) K/uL Puncture Site Rb pCO2 44 (35-45) mm/Hg pO2 66 L (80-100) mm/Hg HCO3 30.8 H (21-28) mmol/L ABG pH 7.47 H (7.35-7.45) ABG Total CO2 33.4 H (22-28) mmol/L ABG O2 Saturation 97.3 (95-98) % ABG Base Excess 7.6 H (-2.0-3.0) mmol/L ABG Hemoglobin 8.1 L (11.7-17.4) g/dL ABG Carboxyhemoglobin 2.6 H (0.5-1.5) % POC ABG HHb (Measured) 2.6 (0.0-5.0) % ABG Methemoglobin 1.2 (0.0-3.0) % Mitesh Test Na A-a O2 Difference 164.0 mm/Hg Respiratory Index 2.5 Hgb O2 Saturation 93.6 L (95.0-98.0) % Mechanical Rate 14 FiO2 40.0 % Tidal Volume 450 PEEP 5 Sodium 127 L (132-148) mmol/L Potassium 3.6 (3.6-5.2) mmol/L Chloride 88 L (98-107) mmol/L Carbon Dioxide 33 H (22-30) mmol/L Anion Gap 10 (10-20) BUN 3 L (9-20) mg/dL Creatinine 0.5 L (0.8-1.5) MG/DL Est GFR ( Amer) > 60 Est GFR (Non-Af Amer) > 60 Random Glucose 109 (75-110) mg/dL Calcium 7.3 L (8.6-10.4) mg/dl Phosphorus 2.2 L (2.5-4.5) mg/dL Magnesium 1.3 L (1.6-2.3) mg/dL Total Bilirubin (0.2-1.3) mg/dL AST (17-59) U/L ALT (21-72) U/L Alkaline Phosphatase (38-126) U/L Total Protein (6.3-8.3) g/dL Albumin (3.5-5.0) g/dL Globulin (2.2-3.9) gm/dL Albumin/Globulin Ratio (1.0-2.1) Laboratory Results - last 24 hr 03/10/17 03/10/17 03/11/17 21:23 23:30 05:55 WBC RBC Hgb Hct MCV MCH MCHC RDW Plt Count MPV Neut % (Auto) Lymph % (Auto) [place] % (Auto) Eos % (Auto) Baso % (Auto) Neut # Lymph # [place] # Eos # Baso # Puncture Site Rb Rb pCO2 44 31 L pO2 66 L 50 L HCO3 30.8 H 29.1 H ABG pH 7.47 H 7.56 H ABG Total CO2 33.4 H 28.8 H ABG O2 Saturation 97.3 93.7 L ABG Base Excess 7.6 H 5.5 H ABG Hemoglobin 8.1 L 8.6 L ABG Carboxyhemoglobin 2.6 H 2.7 H POC ABG HHb (Measured) 2.6 6.1 H ABG Methemoglobin 1.2 1.0 Mitesh Test Na Na A-a O2 Difference 164.0 196.0 Respiratory Index 2.5 3.9 Hgb O2 Saturation 93.6 L 90.2 L Mechanical Rate 14 14 FiO2 40.0 40.0 Tidal Volume 450 450 PEEP 5 5 Sodium 127 L Potassium 3.6 Chloride 88 L Carbon Dioxide 33 H Anion Gap 10 BUN 3 L Creatinine 0.5 L Est GFR ( Amer) > 60 Est GFR (Non-Af Amer) > 60 Random Glucose 109 Calcium 7.3 L Phosphorus 2.2 L Magnesium 1.3 L Total Bilirubin AST ALT Alkaline Phosphatase Total Protein Albumin Globulin Albumin/Globulin Ratio 03/11/17 03/11/17 06:46 06:46 WBC 5.3 RBC 3.54 L Hgb 8.8 L Hct 28.3 L MCV 79.8 L MCH 24.9 L MCHC 31.2 L RDW 19.9 H Plt Count 90 L MPV 9.1 Neut % (Auto) 71.2 Lymph % (Auto) 20.0 [place] % (Auto) 6.1 Eos % (Auto) 1.9 Baso % (Auto) 0.8 Neut # 3.8 Lymph # 1.1 [place] # 0.3 Eos # 0.1 Baso # 0.0 Puncture Site pCO2 pO2 HCO3 ABG pH ABG Total CO2 ABG O2 Saturation ABG Base Excess ABG Hemoglobin ABG Carboxyhemoglobin POC ABG HHb (Measured) ABG Methemoglobin Mitesh Test A-a O2 Difference Respiratory Index Hgb O2 Saturation Mechanical Rate FiO2 Tidal Volume PEEP Sodium 130 L Potassium 3.8 Chloride 93 L Carbon Dioxide 27 Anion Gap 14 BUN 4 L Creatinine 0.5 L Est GFR ( Amer) > 60 Est GFR (Non-Af Amer) > 60 Random Glucose 92 Calcium 6.9 L Phosphorus 2.0 L Magnesium 2.0 Total Bilirubin 1.1 AST 54 ALT 40 Alkaline Phosphatase 182 H Total Protein 5.7 L Albumin 2.6 L Globulin 3.0 Albumin/Globulin Ratio 0.9 L Review of Systems - Review of Systems Systems not reviewed;Unavailable: Intubated Critical Care Progress Note - Ventilator Checklist Head of Bed 30 Degrees: Yes Daily Sedation Vacation: Yes Daily Assessment of Readiness to Wean: Yes Daily Spontaneous Breathing Trial: Yes PUD Prophalyxis: Yes DVT Prophylaxis: Yes - Nutrition Nutrition: Nutrition Category Date Time Status NPO Diet [DIET] Diets 03/09/17 Dinner Active Assessment/Plan (1) Subarachnoid bleed Assessment and plan: 51 year old homeless male, with PMHx of EtOH Abuse, seizures, Hypertension, Arthritis, Anxiety, COPD, who presents after being found unconscious bleeding from right ear. CT Head showed R mastoid fracture, small subarachnoid and subdural hemorrhage. Neuro: Sedated secondary to Ativan IV while on CIWA protocol. Seizure, either secondary to alcohol withdrawal or subarachnoid hemorrhage, continue seizure prophylaxis with Keppra twice a day. Repeat head CT shows improvement, with blood resorption, of left temporal intraparenchymal hemorrhage. Pulm: Acute respiratory failure, patient was intubated (03/10) to protect his airway during severe EtOH withdrawal symptoms. On PRVC. Obtaining CT angiogram to rule out PE, patient has significant hypoxia with A-A gradient on ABG. CV: Hemodynamically stable, blood pressure within normal range. Hem: No acute issues, anemia of chronic disease. Can restart DVT prophylaxis tomorrow. Renal: No acute issues, urine output within normal limits, will monitor. Banana bag 3 days. Endo: No acute issues GI: Nothing by mouth. EtOH cirrhosis. Tube feedings, Isosource at 30. ID: Empiric treatment with cefepime for possibility of aspiration pneumonia. DVT proph - SCDs, holding anticoagulation with current intracranial hemorrhage. GI proph - Protonix IV hdez for strict I/O's during acute illness Code status - full code Crtical Care Time spent 35 minutes Multi-disciplinary rounds were performed with house staff, nursing, speech therapy, respiratory therapy, pharmacy and nutrition with integrated input from the primary team/attending and other consulting services. The documented time is cumulative and includes review of patient data/exams/labs/chart review and examination of the patient on rounds and throughout the day; time is exclusive of any procedures or teaching time. Current Visit: Yes Status: Acute
--- NOTE | 2017-03-11 12:55 | CP.PCM.PN ---
Subjective - Date & Time of Evaluation Date of Evaluation: 03/11/17 Time of Evaluation: 14:20 - Subjective Subjective: clinically same Objective - Vital Signs/Intake and Output Vital Signs (last 24 hours): Temp Pulse Resp BP Pulse Ox 100.1 F H 105 H 20 116/61 98 03/11/17 11:53 03/11/17 11:53 03/11/17 11:03 03/11/17 11:03 03/11/17 11:53 Intake and Output: 03/11/17 03/11/17 06:59 18:59 Intake Total 2940.2 1092.8 Output Total 350 435 Balance 2590.2 657.8 - Medications Medications: Current Medications Levetiracetam 500 mg/ Sodium (Chloride) 105 mls @ 420 mls/hr IVPB Q12H JÚNIOR Last Admin: 03/11/17 05:52 Dose: 420 mls/hr Cefepime HCl 1 gm/ Dextrose 50 mls @ 100 mls/hr IVPB Q8H JÚNIOR Last Admin: 03/11/17 05:03 Dose: 100 mls/hr Multivitamins/Vitamin C 10 ml/Thiamine HCl 100 mg/ Folic Acid 1 mg/ Sodium Chloride 1,011.2 mls @ 100 mls/hr IV DAILY JÚNIOR Stop: 03/12/17 20:07 Last Admin: 03/11/17 10:00 Dose: 100 mls/hr Propofol (Diprivan) 1,000 mg in 100 mls @ 2.041 mls/hr IV .Q24H PRN; Protocol; 5 MCG/KG/MIN PRN Reason: TITRATE PER MD ORDER Last Admin: 03/11/17 11:27 Dose: 60 mcg/kg/min, 24.494 mls/hr Sodium Chloride (Sodium Chloride 0.9%) 1,000 mls @ 100 mls/hr IV .Q10H JÚNIOR Stop: 03/11/17 16:00 Last Admin: 03/11/17 10:30 Dose: 100 mls/hr Lorazepam (Ativan) 1 mg IVP Q4H PRN PRN Reason: Symptoms of alcohol withdrawl Last Admin: 03/11/17 04:49 Dose: 1 mg Pantoprazole Sodium (Protonix Inj) 40 mg IVP DAILY JÚNIOR Last Admin: 03/11/17 10:29 Dose: 40 mg - Labs Labs: 03/11/17 06:46 03/11/17 06:46 PT 15.0 SECONDS (9.7-12.2) H 03/09/17 16:28 INR 1.3 03/09/17 16:28 APTT 36 SECONDS (21-34) H 03/09/17 16:28 - Constitutional Appears: Well - Head Exam Head Exam: ATRAUMATIC, NORMAL INSPECTION, NORMOCEPHALIC - Eye Exam Eye Exam: EOMI, Normal appearance, PERRL Pupil Exam: NORMAL ACCOMODATION, PERRL - ENT Exam ENT Exam: Mucous Membranes Moist, Normal Exam - Neck Exam Neck Exam: Full ROM, Normal Inspection. absent: Lymphadenopathy - Respiratory Exam Respiratory Exam: Decreased Breath Sounds - Cardiovascular Exam Cardiovascular Exam: REGULAR RHYTHM, +S1, +S2 - GI/Abdominal Exam GI & Abdominal Exam: Soft, Diminished Bowel Sounds - Rectal Exam Rectal Exam: Deferred Assessment and Plan (1) Abdominal pain Status: Acute (2) Abrasion Status: Acute (3) Alcohol abuse with intoxication Status: Acute (4) Alcohol intoxication Status: Acute (5) Alcohol withdrawal Status: Acute (6) Alcohol withdrawal seizure Status: Acute (7) Bacteremia Status: Acute (8) Bilateral lower extremity edema Status: Acute (9) Breakthrough seizure Status: Acute (10) Cellulitis Status: Acute (11) Cellulitis of lower extremity Status: Acute (12) Chronic calcific pancreatitis Status: Acute (13) Dehydration Status: Acute (14) Diarrhea Status: Acute (15) Dressing change/suture removal Status: Acute (16) Drug dependence Status: Acute (17) Duodenitis Status: Acute (18) Electrolyte imbalance Status: Acute (19) Elevated alkaline phosphatase level Status: Acute (20) Facial laceration Status: Acute (21) Fever Status: Acute (22) Head trauma Status: Acute (23) Homelessness Status: Acute (24) Hyperphosphatemia Status: Acute (25) Hypokalemia Status: Acute (26) Hypokalemia with normal acid-base balance Status: Acute (27) Hypomagnesemia Status: Acute (28) Hypothermia Status: Acute (29) Low vitamin D level Status: Acute (30) Pancreatic mass Status: Acute (31) Pancreatitis, acute Status: Acute (32) Periapical abscess Status: Acute (33) Pneumonia Status: Acute (34) Pneumonia Status: Acute (35) Prophylactic measure Status: Acute (36) Respiratory failure with hypoxia and hypercapnia Status: Acute (37) Seizure Status: Acute (38) Skull fracture Status: Acute (39) Subarachnoid bleed Status: Acute (40) Subdural hematoma Status: Acute (41) Subdural hemorrhage Status: Acute (42) Thrombocythemia Status: Acute (43) Thrombocytopenia Status: Acute (44) Tobacco abuse Status: Acute (45) Tremors of nervous system Status: Acute (46) Vitamin D deficiency Status: Acute (47) Acute on chronic pancreatitis Status: Chronic (48) Alcohol abuse Status: Chronic (49) Alcohol abuse Status: Chronic (50) Alcohol dependence Status: Chronic (51) Anemia Status: Chronic (52) Anxiety and depression Status: Chronic (53) Aspiration into lower respiratory tract Status: Chronic (54) COPD (chronic obstructive pulmonary disease) Status: Chronic (55) Cholecystitis Status: Chronic (56) Chronic pancreatitis Status: Chronic (57) Depression Status: Chronic (58) Hypertension Status: Chronic (59) Peripheral motor neuropathy Status: Chronic (60) Empyema Status: Suspected (61) Seizure Status: Resolved - Assessment and Plan (Free Text) Plan: Follow-up Neurologist CT shows small subarachnoid and subdural hemorrhage Continue antibiotic Continue Keppra For seizure prophylaxis Continue Ativan
--- NOTE | 2017-03-11 13:16 | CT ---
PROCEDURE: CT Chest with contrast (Pulmonary Angiogram) HISTORY: r/o pe COMPARISON: March 11, 2017. Single-view chest TECHNIQUE: Axial computed tomography images were obtained of the chest in the pulmonary arterial phase of enhancement. Coronal and sagittal reformatted images were created and reviewed. Intravenous contrast dose: 100 cc Visipaque 320. Mean Hounsfield unit values in the main pulmonary artery: 220.85 Radiation dose: Total exam DLP = 603.22 all mGy-cm. This CT exam was performed using one or more of the following dose reduction techniques: Automated exposure control, adjustment of the mA and/or kV according to patient size, and/or use of iterative reconstruction technique. FINDINGS: PULMONARY ARTERIES: Unremarkable. No pulmonary embolism. AORTA: No acute findings. No thoracic aortic aneurysm. LUNGS: Bilateral lower lobe infiltrates left greater than right. Subsegmental right upper lobe infiltrate. Sparing of the lingula and right middle lobe. PLEURAL SPACES: Unremarkable. No effusion or pneuomothorax. HEART: Unremarkable. No cardiomegaly. No significant pericardial effusion. LYMPH NODES: No lymphadenopathy. BONES, CHEST WALL: Unremarkable. No fracture or destructive lesion OTHER FINDINGS: Satisfactory position of endotracheal tube and nasogastric tube. Incidental finding(s): Incompletely visualized findings chronic pancreatitis. IMPRESSION: 1. Negative study for pulmonary embolism. Limitations of the current examination: Suboptimal visualization of subsegmental pulmonary arteries. 2. Bilateral multifocal infiltrates primarily affecting the lower lobes left greater than right likely etiology infectious/inflammatory. Additional benign and/or incidental findings described above.
--- NOTE | 2017-03-11 13:51 | RAD ---
HISTORY: Intubated. Portable study 07:20. COMPARISON: March 10, 2017. Single-view chest. March 11, 2017. CT angiogram thorax. FINDINGS: LUNGS: Multifocal infiltrates better appreciated on the CT angiogram than today's chest radiograph. Overall interval improvement with respect infiltrates compared to the prior chest radiograph March 10, 2017. PLEURA: No significant pleural effusion identified, no pneumothorax apparent. CARDIOVASCULAR: No radiographic findings to suggest acute or significant cardiovascular disease. OSSEOUS STRUCTURES: No significant abnormalities. VISUALIZED UPPER ABDOMEN: Normal. OTHER FINDINGS: Stable position of support apparatus. IMPRESSION: Interval improvement bilateral infiltrates based on radiographic comparison chest.
[2017-03-11] MEDS: Acetylcysteine 20% Inhal Soln (4ml) INH SCH ×2 (15:19→20:02)
--- NOTE | 2017-03-11 19:13 | CP.PCM.PN ---
Subjective - Date & Time of Evaluation Date of Evaluation: 03/11/17 Time of Evaluation: 19:00 - Subjective Subjective: Patient seen and examined Intubated Condition unchanged Objective - Vital Signs/Intake and Output Vital Signs (last 24 hours): Temp Pulse Resp BP Pulse Ox 99.8 F H 82 23 131/76 99 03/11/17 16:00 03/11/17 18:03 03/11/17 18:03 03/11/17 18:03 03/11/17 18:03 Intake and Output: 03/11/17 03/12/17 18:59 06:59 Intake Total 2969.8 Output Total 1035 Balance 1934.8 - Medications Medications: Current Medications Acetylcysteine (Acetylcysteine 20%) 4 ml INH RQ6 JÚNIOR Last Admin: 03/11/17 15:19 Dose: Not Given Albuterol/Ipratropium (Duoneb 3 Mg/0.5 Mg (3 Ml) Ud) 3 ml INH RQ6 JÚNIOR Levetiracetam 500 mg/ Sodium (Chloride) 105 mls @ 420 mls/hr IVPB Q12H JÚNIOR Last Admin: 03/11/17 17:58 Dose: 420 mls/hr Cefepime HCl 1 gm/ Dextrose 50 mls @ 100 mls/hr IVPB Q8H JÚNIOR Last Admin: 03/11/17 13:08 Dose: 100 mls/hr Multivitamins/Vitamin C 10 ml/Thiamine HCl 100 mg/ Folic Acid 1 mg/ Sodium Chloride 1,011.2 mls @ 100 mls/hr IV DAILY [facility] Stop: 03/12/17 20:07 Last Admin: 03/11/17 10:00 Dose: 100 mls/hr Propofol (Diprivan) 1,000 mg in 100 mls @ 2.041 mls/hr IV .Q24H PRN; Protocol; 5 MCG/KG/MIN PRN Reason: TITRATE PER MD ORDER Last Admin: 03/11/17 18:19 Dose: 60 mcg/kg/min, 24.494 mls/hr Lorazepam (Ativan) 1 mg IVP Q4H PRN PRN Reason: Symptoms of alcohol withdrawl Last Admin: 03/11/17 16:55 Dose: 1 mg Pantoprazole Sodium (Protonix Inj) 40 mg IVP DAILY [facility] Last Admin: 05/07/17 10:29 Dose: 40 mg - Labs Labs: 03/11/17 06:46 03/11/17 06:46 PT 15.0 SECONDS (9.7-12.2) H 03/09/17 16:28 INR 1.3 03/09/17 16:28 APTT 36 SECONDS (21-34) H 03/09/17 16:28 - Head Exam Head Exam: NORMAL INSPECTION - Eye Exam Eye Exam: Normal appearance - ENT Exam ENT Exam: Mucous Membranes Moist - Respiratory Exam Respiratory Exam: Rhonchi - Cardiovascular Exam Cardiovascular Exam: REGULAR RHYTHM - GI/Abdominal Exam GI & Abdominal Exam: Soft, Normal Bowel Sounds - Extremities Exam Extremities Exam: Normal Inspection Assessment and Plan - Assessment and Plan (Free Text) Assessment: Acute respiratory failure Pneumonia COPD Right mastoid fracture Subarachnoid hemorrhage Subdural hemorrhage Seizures History of alcohol abuse Continue full vent support Antibiotics as ordered Bronchodilators Neurology follow-up Neurosurgery follow-up Repeat CT chest Seizure prophylaxis Observe for alcohol withdrawal Thiamine and folate DVT/GI prophylaxis
[2017-03-11] MEDS: Albuterol-Ipratrop 3 mg / 0.5 (3 ml) UD INH SCH (20:02)
--- NOTE | 2017-03-11 20:38 | CON ---
DATE: 03/11/2017 HISTORY OF PRESENT ILLNESS: This is a 51-year-old male with a past medical history of alcohol abuse, came here, was found unconscious and bleeding from the right scalp and right ear. The patient has a history of homelessness and alcoholic. The patient was found to have subarachnoid bleed and hematom a and a CAT scan showed left temporal bleed and subarachnoid hemorrhage of the skull frac ture and the patient was intubated on sedation for airway protection and called to evaluate the patie nt. PAST MEDICAL HISTORY: As above. REVIEW OF SYSTEMS: A 10-point review of systems, the patient is unresponsive. PAST MEDICAL HISTORY: Anxiety, arthritis, COPD, depression, hypertension, pancreatitis, pneumonia, s eizure. PHYSICAL EXAMINATION: HEENT: Normocephalic. NEUROLOGIC: The patient on a ventilatory support and unresponsive and the pupils were reactive. Spo ntaneous movement of the extremities noted. Deep tendon reflexes 1+. Both plantars downgoing. Sens ory: Unable to respond. Cerebellar, gait deferred. IMPRESSION: Encephalopathy superimposed on left temporal bleed, subarachnoid hemorrhage, skull base of the skull fracture. Neurosurgeon on the case. Workup in progress. Continue present management. We will follow up. Sterling Ordaz MD cc: [id number] TT: 03/11/2017 20:36:56 Confirmation # [id number] Dictation # [id number] lalita
[2017-03-12] MEDS: Acetylcysteine 20% Inhal Soln (4ml) INH SCH ×4 (01:11→19:59)
[2017-03-12] MEDS: Albuterol-Ipratrop 3 mg / 0.5 (3 ml) UD INH SCH ×4 (01:11→19:59)
[2017-03-12] MEDS: Propofol 10 mg/ml 1,000 MG/100 ML VIAL IV PRN ×5 (02:54→19:40)
[2017-03-12 04:26] LABS: ABG MECHANICAL RATE 14; ARTERIAL BLOOD HGB O2 SAT 95.7 % (95.0-98.0); ATERIAL BLOOD GAS PEEP 5; CARBOXYHEMOGLOBIN 2.7 % (0.5-1.5); DRAW SITE RB; HHB 0.5 % (0.0-5.0)
[2017-03-12] MEDS: levETIRAcetam 500 MG in Sodium Chloride 0.9% 100 ML IVPB SCH ×2 (06:00→17:28)
[2017-03-12 06:26] LABS: BASO % 0.9 % (0.0-2.0); EOS # 0.2 K/uL (0.0-0.7); EOS % 3.4 % (0.0-4.0); HEMATOCRIT 27.8 % (35.0-51.0); LYMPH # 0.8 K/uL (1.0-4.3); MEAN CORPUSCULAR HGB CONC 31.7 g/dL (33.0-37.0); MEAN PLATELET VOLUME 9.3 fL (7.2-11.7); MONO # 0.4 K/uL (0.0-0.8); MONO % 8.5 % (0.0-10.0); NRBC % 0.2 % (0.0-2.0); RED CELL DISTRIBUTION WIDTH 19.8 % (11.5-14.5); WHITE BLOOD COUNT 5.1 K/uL (4.8-10.8)
[2017-03-12 06:32] LABS: CHLORIDE 91 mmol/L (98-107); SODIUM 125 mmol/L (132-148)
[2017-03-12 06:33] LABS: POTASSIUM 3.1 mmol/L (3.6-5.2)
[2017-03-12 06:34] LABS: GFR AFRICAN-AMERICAN > 60
[2017-03-12 06:35] LABS: ALB/GLOB RATIO 0.7 (1.0-2.1); ALKALINE PHOSPHATASE 204 U/L (38-126); ALT/SGPT 50 U/L (21-72); AST/SGOT 65 U/L (17-59); BILIRUBIN,TOTAL 0.7 mg/dL (0.2-1.3); BLOOD UREA NITROGEN 3 mg/dL (9-20); CARBON DIOXIDE 27 mmol/L (22-30); GLUCOSE,RANDOM 136 mg/dL (75-110); PHOSPHOROUS 2.5 mg/dL (2.5-4.5); TOTAL PROTEIN 5.5 g/dL (6.3-8.3)
[2017-03-12 06:36] LABS: CALCIUM 7.4 mg/dl (8.6-10.4); MAGNESIUM 1.2 mg/dL (1.6-2.3)
--- NOTE | 2017-03-12 08:48 | RAD ---
PROCEDURE: CHEST RADIOGRAPH, 1 VIEW HISTORY: vented COMPARISON: 03/11/2017 FINDINGS: LUNGS: Lines and tubes in stable position. Moderate venous congestion. Left basilar airspace opacity with small left pleural effusion. Scattered nodular densities in both lungs. PLEURA: As above. CARDIOVASCULAR: Calcification at the aortic knob. OSSEOUS STRUCTURES: Degenerative changes in the spine and shoulders. VISUALIZED UPPER ABDOMEN: Normal. OTHER FINDINGS: None. IMPRESSION: Lines and tubes in stable position. Moderate venous congestion. Left basilar airspace opacity with small left pleural effusion. Scattered nodular densities in both lungs.
[2017-03-12] MEDS: Multivitamin (MVI) 10 ML, Thiamine 100 MG, Folic Acid 1 MG in Sodium Chloride 0.9% 1,00... IV SCH (09:31)
[2017-03-12] MEDS: Magnesium Sulfate 1 gm in D5W 1 GM/100 ML BAG IVPB SCH ×2 (10:30→12:04)
--- NOTE | 2017-03-12 12:15 | CP.CCUPN ---
<Matthew Melo - Last Filed: 03/12/17 12:07> CCU Subjective - Physician Review Subjective (Free Text): 03/12/17 12:29 PGY-1 progress note Pt seen and examined at bedside. There were no overnight events. Pt is sedated and intubated. Critical Care Time Spent (in minutes): 35 CCU Objective - Vital Signs / Intake & Output Vital Signs (Last 4 hours): Vital Signs Pulse Resp BP Pulse Ox 03/12/17 11:03 87 28 H 133/76 100 03/12/17 11:00 84 26 H 100 03/12/17 10:03 93 H 21 133/82 100 03/12/17 10:00 88 26 H 100 03/12/17 09:03 95 H 22 132/83 98 03/12/17 09:00 93 H 15 118/69 95 Intake and Output (Last 8hrs): Intake & Output 03/11/17 03/12/17 03/12/17 22:59 06:59 14:59 Intake Total 1636.0 636.0 804.5 Output Total 530 570 250 Balance 1106.0 66.0 554.5 Weight 166 lb Intake: IV 300 200 100 Intake, IV Amount 1096.0 196.0 524.5 Left Forearm 800 400 Right Hand 100 left lower arm 100 right lower hand 196.0 196.0 24.5 Oral 30 Tube Feeding 240 240 150 Output: Urine 530 570 250 Urethral (Hdez) 530 570 250 Stool 0 Emesis 0 Other: # Bowel Movements 1 - Physical Exam Head: Positive for: Normocephalic, Abrasion Pupils: Positive for: PERRL Extroacular Muscles: Positive for: EOMI Mouth: Positive for: Moist Mucous Membranes Respiratory/Chest: Positive for: Good Air Exchange, Rhonchi (diffuse). Negative for: Respiratory Distress Cardiovascular: Positive for: Regular Rate and Rhythm, Normal S1, S2 Abdomen: Positive for: Normal Bowel Sounds. Negative for: Tenderness, Distention Neurological: Positive for: Other (Sedated) - Medications Active Medications: Active Medications Generic Name Dose Route Start Last Admin Trade Name Freq PRN Reason Stop Dose Admin Acetylcysteine 4 ml 03/11/17 15:00 03/12/17 07:27 Acetylcysteine 20% INH 4 ml RQ6 JÚNIOR Administration Albuterol/Ipratropium 3 ml 03/11/17 20:00 03/12/17 07:27 Duoneb 3 Mg/0.5 Mg (3 Ml) Ud INH 3 ml RQ6 JÚNIOR Administration Levetiracetam 500 mg/ Sodium 105 mls @ 420 mls/hr 03/09/17 18:15 03/12/17 06: 00 Chloride IVPB 420 mls/hr Q12H JÚNIOR Administration Cefepime HCl 1 gm/ Dextrose 50 mls @ 100 mls/hr 03/09/17 21:00 03/12/17 04:15 IVPB 100 mls/hr Q8H JÚNIOR Administration Multivitamins/Vitamin C 10 ml/ 1,011.2 mls @ 100 mls/hr 03/10/17 10:00 09:31 Thiamine HCl 100 mg/ Folic IV 03/12/17 20:07 100 mls/hr Acid 1 mg/ Sodium Chloride DAILY JÚNIOR Administration Propofol 1,000 mg in 100 mls @ 2.041 mls/hr 03/10/17 22:00 03/12/17 11:00 Diprivan IV 60 mcg/kg/min .Q24H PRN 24.494 mls/hr TITRATE PER MD ORDER Administration Protocol 5 MCG/KG/MIN Magnesium Sulfate/Dextrose 1 gm in 100 mls @ 100 mls/hr 03/12/17 11:00 12:04 Magnesium Sulfate 1 Gm/100 Ml D5w IVPB 03/12/17 12:59 100 mls/hr Q1H JÚNIOR Administration Potassium Chloride 10 meq in 100 mls @ 100 mls/hr 03/12/17 11:00 03/12/17 12: 03 Potassium Chloride 10 Meq/100 Ml IVPB 03/12/17 15:59 100 mls/hr Q2H JÚNIOR Administration Lorazepam 1 mg 03/09/17 18:46 03/11/17 16:55 Ativan IVP 1 mg Q4H PRN Administration Symptoms of alcohol withdrawl Pantoprazole Sodium 40 mg 03/10/17 13:00 03/12/17 09:31 Protonix Inj IVP 40 mg DAILY JÚNIOR Administration - Patient Studies Lab Studies: Lab Studies 03/12/17 03/12/17 03/12/17 Range/Units 06:18 06:17 04:10 WBC 5.1 (4.8-10.8) K/uL RBC 3.52 L (4.40-5.90) Mil/uL Hgb 8.8 L (12.0-18.0) g/dL Hct 27.8 L (35.0-51.0) % MCV 79.0 L (80.0-94.0) fL MCH 25.0 L (27.0-31.0) pg MCHC 31.7 L (33.0-37.0) g/dL RDW 19.8 H (11.5-14.5) % Plt Count 101 L (130-400) K/uL MPV 9.3 (7.2-11.7) fL Neut % (Auto) 71.2 (50.0-75.0) % Lymph % (Auto) 16.0 L (20.0-40.0) % [place] % (Auto) 8.5 (0.0-10.0) % Eos % (Auto) 3.4 (0.0-4.0) % Baso % (Auto) 0.9 (0.0-2.0) % Neut # 3.6 (1.8-7.0) K/uL Lymph # 0.8 L (1.0-4.3) K/uL [place] # 0.4 (0.0-0.8) K/uL Eos # 0.2 (0.0-0.7) K/uL Baso # 0.0 (0.0-0.2) K/uL Puncture Site Rb pCO2 33 L (35-45) mm/Hg pO2 93 (80-100) mm/Hg HCO3 28.7 H (21-28) mmol/L ABG pH 7.53 H (7.35-7.45) ABG Total CO2 28.6 H (22-28) mmol/L ABG O2 Saturation 99.5 H (95-98) % ABG Base Excess 4.8 H (-2.0-3.0) mmol/L ABG Hemoglobin 9.0 L (11.7-17.4) g/dL ABG Carboxyhemoglobin 2.7 H (0.5-1.5) % POC ABG HHb (Measured) 0.5 (0.0-5.0) % ABG Methemoglobin 1.0 (0.0-3.0) % Mitesh Test Na A-a O2 Difference 151.0 mm/Hg Respiratory Index 1.6 Hgb O2 Saturation 95.7 (95.0-98.0) % Mechanical Rate 14 FiO2 40.0 % Tidal Volume 450 PEEP 5 Sodium 125 L (132-148) mmol/L Potassium 3.1 L (3.6-5.2) mmol/L Chloride 91 L (98-107) mmol/L Carbon Dioxide 27 (22-30) mmol/L Anion Gap 10 (10-20) BUN 3 L (9-20) mg/dL Creatinine 0.4 L (0.8-1.5) MG/DL Est GFR ( Amer) > 60 Est GFR (Non-Af Amer) > 60 Random Glucose 136 H (75-110) mg/dL Calcium 7.4 L (8.6-10.4) mg/dl Phosphorus 2.5 (2.5-4.5) mg/dL Magnesium 1.2 L (1.6-2.3) mg/dL Total Bilirubin 0.7 (0.2-1.3) mg/dL AST 65 H D (17-59) U/L ALT 50 (21-72) U/L Alkaline Phosphatase 204 H (38-126) U/L Total Protein 5.5 L (6.3-8.3) g/dL Albumin 2.3 L (3.5-5.0) g/dL Globulin 3.2 (2.2-3.9) gm/dL Albumin/Globulin Ratio 0.7 L (1.0-2.1) Laboratory Results - last 24 hr 03/12/17 03/12/17 03/12/17 04:10 06:17 06:18 WBC 5.1 RBC 3.52 L Hgb 8.8 L Hct 27.8 L MCV 79.0 L MCH 25.0 L MCHC 31.7 L RDW 19.8 H Plt Count 101 L MPV 9.3 Neut % (Auto) 71.2 Lymph % (Auto) 16.0 L [place] % (Auto) 8.5 Eos % (Auto) 3.4 Baso % (Auto) 0.9 Neut # 3.6 Lymph # 0.8 L [place] # 0.4 Eos # 0.2 Baso # 0.0 Puncture Site Rb pCO2 33 L pO2 93 HCO3 28.7 H ABG pH 7.53 H ABG Total CO2 28.6 H ABG O2 Saturation 99.5 H ABG Base Excess 4.8 H ABG Hemoglobin 9.0 L ABG Carboxyhemoglobin 2.7 H POC ABG HHb (Measured) 0.5 ABG Methemoglobin 1.0 Mitesh Test Na A-a O2 Difference 151.0 Respiratory Index 1.6 Hgb O2 Saturation 95.7 Mechanical Rate 14 FiO2 40.0 Tidal Volume 450 PEEP 5 Sodium 125 L Potassium 3.1 L Chloride 91 L Carbon Dioxide 27 Anion Gap 10 BUN 3 L Creatinine 0.4 L Est GFR ( Amer) > 60 Est GFR (Non-Af Amer) > 60 Random Glucose 136 H Calcium 7.4 L Phosphorus 2.5 Magnesium 1.2 L Total Bilirubin 0.7 AST 65 H D ALT 50 Alkaline Phosphatase 204 H Total Protein 5.5 L Albumin 2.3 L Globulin 3.2 Albumin/Globulin Ratio 0.7 L Review of Systems - Review of Systems Systems not reviewed;Unavailable: Intubated Critical Care Progress Note - Nutrition Nutrition: Nutrition Category Date Time Status NPO Diet [DIET] Diets 03/09/17 Dinner Active Assessment/Plan - Assessment and Plan (Free Text) Assessment: This is a 51 yo M with PMH of Etoh abuse admitted with R mastoid fracture, small subarachnoid and subdural hemorrhage, complicated by seizure secondary to Etoh withdrawal vs brain hemorrhage. Pt now intubated and sedated due to severe agitation. Plan: Neuro: Pt sedated and intubated. Continue seizure prophylaxis with Keppra twice a day. Repeat head CT shows improvement, with blood resorption, of left temporal intraparenchymal hemorrhage. Pulm: Acute respiratory failure, patient was intubated (03/10) to protect his airway during severe EtOH withdrawal symptoms. On PRVC. CT angiogram negative for PE CV: Hemodynamically stable, blood pressure within normal range. Hem: No acute issues, anemia of chronic disease. Renal: No acute issues, urine output within normal limits, will monitor. Banana bag 3 days. Endo: No acute issues GI: Nothing by mouth. EtOH cirrhosis. Tube feedings, Isosource at 30. ID: Empiric treatment with cefepime for possibility of aspiration pneumonia. DVT proph - SCDs, holding anticoagulation with current intracranial hemorrhage. GI proph - Protonix IV hdez for strict I/O's during acute illness Code status - full code <Juan Antonio Wang - Last Filed: 03/19/17 18:46> CCU Objective - Vital Signs / Intake & Output Intake and Output (Last 8hrs): Intake & Output 03/19/17 03/19/17 03/19/17 06:59 14:59 22:59 Intake Total 800.8 724.6 Output Total 500 465 Balance 300.8 259.6 Weight 146 lb Intake: IV 98 21 Intake, IV Amount 702.8 703.6 Left Forearm 600 575 Right Hand 50 100 side port left fforearm 52.8 28.6 Oral 0 Output: Urine 500 465 Condom 90 Urethral (Hdez) 500 375 - Medications Active Medications: Active Medications Generic Name Dose Route Start Last Admin Trade Name Freq PRN Reason Stop Dose Admin Albuterol/Ipratropium 3 ml 03/11/17 20:00 03/19/17 13:09 Duoneb 3 Mg/0.5 Mg (3 Ml) Ud INH 3 ml RQ6 JÚNIOR Administration Chlordiazepoxide 5 mg 03/19/17 10:15 03/19/17 10:57 Librium PO 5 mg Q12 JÚNIOR Administration Enoxaparin Sodium 40 mg 03/16/17 10:00 03/19/17 09:25 Lovenox SC 40 mg DAILY JÚNIOR Administration Famotidine 20 mg 03/19/17 10:00 03/19/17 09:25 Pepcid IVP 20 mg DAILY JÚNIOR Administration Cefepime HCl 1 gm/ Dextrose 50 mls @ 100 mls/hr 03/09/17 21:00 03/19/17 12:42 IVPB 03/24/17 11:00 100 mls/hr Q8H JÚNIOR Administration Sodium Chloride 1,000 mls @ 75 mls/hr 03/18/17 14:15 03/19/17 17:42 Sodium Chloride 0.9% IV 75 mls/hr .[id number] JÚNIOR Administration Dexmedetomidine HCl 200 mcg/ 50 mls @ 3.27 mls/hr 03/18/17 16:41 03/19/17 11: 01 Sodium Chloride IV 0.2 mcg/kg/hr TITR PRN 3.27 mls/hr Agitation Titration Protocol 0.2 MCG/KG/HR Levetiracetam 500 mg/ Sodium 105 mls @ 420 mls/hr 03/18/17 19:00 03/19/17 18: 39 Chloride IVPB 420 mls/hr Q12H JÚNIOR Administration Scopolamine 1 patch 03/17/17 14:00 03/17/17 14:59 Transderm-Scop TD 1 patch Q3D JÚNIOR Administration Vancomycin HCl 250 mg 03/19/17 13:30 03/19/17 18:39 Vancocin (Oral Or Rectal Use) PO 250 mg Q6H JÚNIOR Administration - Patient Studies Lab Studies: Lab Studies 03/19/17 03/19/17 03/18/17 Range/Units 06:50 06:50 18:30 WBC 7.7 (4.8-10.8) K/uL RBC 3.82 L (4.40-5.90) Mil/uL Hgb 9.4 L (12.0-18.0) g/dL Hct 30.5 L (35.0-51.0) % MCV 79.7 L (80.0-94.0) fL MCH 24.7 L (27.0-31.0) pg MCHC 31.0 L (33.0-37.0) g/dL RDW 19.0 H (11.5-14.5) % Plt Count 289 (130-400) K/uL MPV 8.6 (7.2-11.7) fL Neut % (Auto) 69.7 (50.0-75.0) % Lymph % (Auto) 17.3 L (20.0-40.0) % [place] % (Auto) 7.0 (0.0-10.0) % Eos % (Auto) 4.6 H (0.0-4.0) % Baso % (Auto) 1.4 (0.0-2.0) % Neut # 5.4 (1.8-7.0) K/uL Lymph # 1.3 (1.0-4.3) K/uL [place] # 0.5 (0.0-0.8) K/uL Eos # 0.4 (0.0-0.7) K/uL Baso # 0.1 (0.0-0.2) K/uL Sodium 128 L (132-148) mmol/L Potassium 4.0 (3.6-5.2) mmol/L Chloride 89 L (98-107) mmol/L Carbon Dioxide 29 (22-30) mmol/L Anion Gap 14 (10-20) BUN 9 (9-20) mg/dL Creatinine 0.5 L (0.8-1.5) MG/DL Est GFR ( Amer) > 60 Est GFR (Non-Af Amer) > 60 Random Glucose 91 (75-110) mg/dL Calcium 8.3 L (8.6-10.4) mg/dl Phosphorus 4.0 (2.5-4.5) mg/dL Magnesium 1.4 L (1.6-2.3) mg/dL C. difficile Ag & Toxin Negative (NEGATIVE) Laboratory Results - last 24 hr 03/18/17 03/19/17 03/19/17 18:30 06:50 06:50 WBC 7.7 RBC 3.82 L Hgb 9.4 L Hct 30.5 L MCV 79.7 L MCH 24.7 L MCHC 31.0 L RDW 19.0 H Plt Count 289 MPV 8.6 Neut % (Auto) 69.7 Lymph % (Auto) 17.3 L [place] % (Auto) 7.0 Eos % (Auto) 4.6 H Baso % (Auto) 1.4 Neut # 5.4 Lymph # 1.3 [place] # 0.5 Eos # 0.4 Baso # 0.1 Sodium 128 L Potassium 4.0 Chloride 89 L Carbon Dioxide 29 Anion Gap 14 BUN 9 Creatinine 0.5 L Est GFR ( Amer) > 60 Est GFR (Non-Af Amer) > 60 Random Glucose 91 Calcium 8.3 L Phosphorus 4.0 Magnesium 1.4 L C. difficile Ag & Toxin Negative Attending/Attestation - Attestation I have personally seen and examined this patient.: Yes I have fully participated in the care of the patient.: Yes I have reviewed all pertinent clinical information: Yes Notes (Text): continue current treatment
--- NOTE | 2017-03-12 13:39 | CP.PCM.PCO ---
Assessment & Plan - Assessment and Plan (Free Text) Assessment: NEURO COMMUNICATION NOTE: REPEAT CT HEAD REVIEWED, IMPROVEMENT INTERVAL IN SMALL SAH & SDH. NO SEIZURE ACTIVITY. PLAN: C/W KEPPRA 500MG PO BID FOR SEIZURE PROPHYLAXIS AND NO ANTIPLATELET FOR THREE WEEKS FROM BLEED. C/W CIWA PROTOCOL FOR ETOH WITHDRAWL. F/U WITH NEUROSURGERY. PT/OT EVALUATION AND POSSIBLE MARY KAY. WILL SIGN OFF. Aleena BENDER MD.
--- NOTE | 2017-03-12 14:11 | CP.PCM.PN ---
Subjective - Date & Time of Evaluation Date of Evaluation: 03/12/17 Time of Evaluation: 15:40 - Subjective Subjective: clinically same Objective - Vital Signs/Intake and Output Vital Signs (last 24 hours): Temp Pulse Resp BP Pulse Ox 99.5 F 96 H 19 166/92 H 98 03/12/17 12:00 03/12/17 12:05 03/12/17 12:05 03/12/17 12:05 03/12/17 12:05 Intake and Output: 03/12/17 03/12/17 06:59 18:59 Intake Total 1254.0 1189.5 Output Total 860 300 Balance 394.0 889.5 - Medications Medications: Current Medications Acetylcysteine (Acetylcysteine 20%) 4 ml INH RQ6 JÚNIOR Last Admin: 03/12/17 13:09 Dose: 4 ml Albuterol/Ipratropium (Duoneb 3 Mg/0.5 Mg (3 Ml) Ud) 3 ml INH RQ6 JÚNIOR Last Admin: 03/12/17 13:09 Dose: 3 ml Levetiracetam 500 mg/ Sodium (Chloride) 105 mls @ 420 mls/hr IVPB Q12H JÚNIOR Last Admin: 03/12/17 06:00 Dose: 420 mls/hr Cefepime HCl 1 gm/ Dextrose 50 mls @ 100 mls/hr IVPB Q8H [facility] Last Admin: 03/12/17 13:36 Dose: 100 mls/hr Multivitamins/Vitamin C 10 ml/Thiamine HCl 100 mg/ Folic Acid 1 mg/ Sodium Chloride 1,011.2 mls @ 100 mls/hr IV DAILY JÚNIOR Stop: 03/12/17 20:07 Last Admin: 03/12/17 09:31 Dose: 100 mls/hr Propofol (Diprivan) 1,000 mg in 100 mls @ 2.041 mls/hr IV .Q24H PRN; Protocol; 5 MCG/KG/MIN PRN Reason: TITRATE PER MD ORDER Last Admin: 03/12/17 11:00 Dose: 60 mcg/kg/min, 24.494 mls/hr Potassium Chloride (Potassium Chloride 10 Meq/100 Ml) 10 meq in 100 mls @ 100 mls/hr IVPB Q2H JÚNIOR Stop: 03/12/17 15:59 Last Admin: 03/12/17 12:03 Dose: 100 mls/hr Lorazepam (Ativan) 1 mg IVP Q4H PRN PRN Reason: Symptoms of alcohol withdrawl Last Admin: 03/11/17 16:55 Dose: 1 mg Pantoprazole Sodium (Protonix Inj) 40 mg IVP DAILY [facility] Last Admin: 03/12/17 09:31 Dose: 40 mg - Labs Labs: 03/12/17 06:18 03/12/17 06:17 PT 15.0 SECONDS (9.7-12.2) H 03/09/17 16:28 INR 1.3 03/09/17 16:28 APTT 36 SECONDS (21-34) H 03/09/17 16:28 - Constitutional Appears: Well - Head Exam Head Exam: ATRAUMATIC, NORMAL INSPECTION, NORMOCEPHALIC - Eye Exam Eye Exam: EOMI, Normal appearance, PERRL Pupil Exam: NORMAL ACCOMODATION, PERRL - ENT Exam ENT Exam: Mucous Membranes Moist, Normal Exam - Neck Exam Neck Exam: Full ROM, Normal Inspection. absent: Lymphadenopathy - Respiratory Exam Respiratory Exam: Decreased Breath Sounds - Cardiovascular Exam Cardiovascular Exam: REGULAR RHYTHM, +S1, +S2 - GI/Abdominal Exam GI & Abdominal Exam: Soft, Diminished Bowel Sounds - Rectal Exam Rectal Exam: Deferred Assessment and Plan (1) Abdominal pain Status: Acute (2) Abrasion Status: Acute (3) Alcohol abuse with intoxication Status: Acute (4) Alcohol intoxication Status: Acute (5) Alcohol withdrawal Status: Acute (6) Alcohol withdrawal seizure Status: Acute (7) Bacteremia Status: Acute (8) Bilateral lower extremity edema Status: Acute (9) Breakthrough seizure Status: Acute (10) Cellulitis Status: Acute (11) Cellulitis of lower extremity Status: Acute (12) Chronic calcific pancreatitis Status: Acute (13) Dehydration Status: Acute (14) Diarrhea Status: Acute (15) Dressing change/suture removal Status: Acute (16) Drug dependence Status: Acute (17) Duodenitis Status: Acute (18) Electrolyte imbalance Status: Acute (19) Elevated alkaline phosphatase level Status: Acute (20) Facial laceration Status: Acute (21) Fever Status: Acute (22) Head trauma Status: Acute (23) Homelessness Status: Acute (24) Hyperphosphatemia Status: Acute (25) Hypokalemia Status: Acute (26) Hypokalemia with normal acid-base balance Status: Acute (27) Hypomagnesemia Status: Acute (28) Hypothermia Status: Acute (29) Low vitamin D level Status: Acute (30) Pancreatic mass Status: Acute (31) Pancreatitis, acute Status: Acute (32) Periapical abscess Status: Acute (33) Pneumonia Status: Acute (34) Pneumonia Status: Acute (35) Prophylactic measure Status: Acute (36) Respiratory failure with hypoxia and hypercapnia Status: Acute (37) Seizure Status: Acute (38) Skull fracture Status: Acute (39) Subarachnoid bleed Status: Acute (40) Subdural hematoma Status: Acute (41) Subdural hemorrhage Status: Acute (42) Thrombocythemia Status: Acute (43) Thrombocytopenia Status: Acute (44) Tobacco abuse Status: Acute (45) Tremors of nervous system Status: Acute (46) Vitamin D deficiency Status: Acute (47) Acute on chronic pancreatitis Status: Chronic (48) Alcohol abuse Status: Chronic (49) Alcohol abuse Status: Chronic (50) Alcohol dependence Status: Chronic (51) Anemia Status: Chronic (52) Anxiety and depression Status: Chronic (53) Aspiration into lower respiratory tract Status: Chronic (54) COPD (chronic obstructive pulmonary disease) Status: Chronic (55) Cholecystitis Status: Chronic (56) Chronic pancreatitis Status: Chronic (57) Depression Status: Chronic (58) Hypertension Status: Chronic (59) Peripheral motor neuropathy Status: Chronic (60) Empyema Status: Suspected (61) Seizure Status: Resolved - Assessment and Plan (Free Text) Plan: Follow-up neurologist Follow-up neurosurgery Continue Keppra Continue Ativan Continue Protonix
--- NOTE | 2017-03-12 17:41 | CP.PCM.PN ---
Subjective - Date & Time of Evaluation Date of Evaluation: 03/12/17 Time of Evaluation: 17:41 - Subjective Subjective: Patient seen and examined No events overnight Condition unchanged Objective - Vital Signs/Intake and Output Vital Signs (last 24 hours): Temp Pulse Resp BP Pulse Ox 99.5 F 93 H 18 138/74 100 03/12/17 16:00 03/12/17 16:03 03/12/17 16:03 03/12/17 16:03 03/12/17 16:03 Intake and Output: 03/12/17 03/12/17 06:59 18:59 Intake Total 1254.0 2049.5 Output Total 860 510 Balance 394.0 1539.5 - Medications Medications: Current Medications Acetylcysteine (Acetylcysteine 20%) 4 ml INH RQ6 JÚNIOR Last Admin: 03/12/17 13:09 Dose: 4 ml Albuterol/Ipratropium (Duoneb 3 Mg/0.5 Mg (3 Ml) Ud) 3 ml INH RQ6 JÚNIOR Last Admin: 03/12/17 13:09 Dose: 3 ml Levetiracetam 500 mg/ Sodium (Chloride) 105 mls @ 420 mls/hr IVPB Q12H JÚNIOR Last Admin: 03/12/17 17:28 Dose: 420 mls/hr Cefepime HCl 1 gm/ Dextrose 50 mls @ 100 mls/hr IVPB Q8H JÚNIOR Last Admin: 03/12/17 13:36 Dose: 100 mls/hr Multivitamins/Vitamin C 10 ml/Thiamine HCl 100 mg/ Folic Acid 1 mg/ Sodium Chloride 1,011.2 mls @ 100 mls/hr IV DAILY JÚNIOR Stop: 03/12/17 20:07 Last Admin: 03/12/17 09:31 Dose: 100 mls/hr Propofol (Diprivan) 1,000 mg in 100 mls @ 2.041 mls/hr IV .Q24H PRN; Protocol; 5 MCG/KG/MIN PRN Reason: TITRATE PER MD ORDER Last Admin: 03/12/17 15:31 Dose: 60 mcg/kg/min, 24.494 mls/hr Lorazepam (Ativan) 1 mg IVP Q4H PRN PRN Reason: Symptoms of alcohol withdrawl Last Admin: 03/11/17 16:55 Dose: 1 mg Pantoprazole Sodium (Protonix Inj) 40 mg IVP DAILY JÚNIOR Last Admin: 03/12/17 09:31 Dose: 40 mg - Labs Labs: 03/12/17 06:18 03/12/17 06:17 PT 15.0 SECONDS (9.7-12.2) H 03/09/17 16:28 INR 1.3 03/09/17 16:28 APTT 36 SECONDS (21-34) H 03/09/17 16:28 - Head Exam Head Exam: NORMAL INSPECTION - Eye Exam Eye Exam: Normal appearance - ENT Exam ENT Exam: Mucous Membranes Moist - Respiratory Exam Respiratory Exam: Rhonchi - Cardiovascular Exam Cardiovascular Exam: REGULAR RHYTHM - GI/Abdominal Exam GI & Abdominal Exam: Soft, Normal Bowel Sounds - Extremities Exam Extremities Exam: Normal Inspection Assessment and Plan - Assessment and Plan (Free Text) Assessment: Acute respiratory failure Pneumonia COPD Right mastoid fracture Subarachnoid hemorrhage Subdural hemorrhage Seizures History of alcohol abuse Continue full vent support Continue antibiotic Bronchodilators Seizure prophylaxis Observe for alcohol withdrawal Thiamine and folate Rest as per ICU management DVT/GI prophylaxis
[2017-03-13] MEDS: Albuterol-Ipratrop 3 mg / 0.5 (3 ml) UD INH SCH ×4 (01:09→19:34)
[2017-03-13] MEDS: Acetylcysteine 20% Inhal Soln (4ml) INH SCH ×3 (01:09→13:37)
[2017-03-13 04:36] LABS: ABG ALLEN TEST POS; ABG MECHANICAL RATE 14; ARTERIAL BLOOD HGB O2 SAT 94.1 % (95.0-98.0); ATERIAL BLOOD GAS PEEP 5; CARBOXYHEMOGLOBIN 2.7 % (0.5-1.5); DRAW SITE RR; HHB 2.3 % (0.0-5.0); METHEMOGLOBIN 0.9 % (0.0-3.0)
[2017-03-13 06:12] LABS: BASO # 0.1 K/uL (0.0-0.2); BASO % 1.3 % (0.0-2.0); EOS # 0.1 K/uL (0.0-0.7); EOS % 2.3 % (0.0-4.0); HEMATOCRIT 31.7 % (35.0-51.0); LYMPH # 0.8 K/uL (1.0-4.3); LYMPH % 13.5 % (20.0-40.0); MEAN CELL VOLUME 78.9 fL (80.0-94.0); MEAN CORPUSCULAR HEMOGLOBIN 24.6 pg (27.0-31.0); MEAN CORPUSCULAR HGB CONC 31.2 g/dL (33.0-37.0); MEAN PLATELET VOLUME 8.9 fL (7.2-11.7); MONO # 0.5 K/uL (0.0-0.8); RED CELL DISTRIBUTION WIDTH 19.7 % (11.5-14.5); WHITE BLOOD COUNT 5.7 K/uL (4.8-10.8)
[2017-03-13] MEDS: levETIRAcetam 500 MG in Sodium Chloride 0.9% 100 ML IVPB SCH ×2 (06:15→17:54)
[2017-03-13 06:40] LABS: CHLORIDE 89 mmol/L (98-107); SODIUM 123 mmol/L (132-148)
[2017-03-13 06:41] LABS: POTASSIUM 3.6 mmol/L (3.6-5.2)
[2017-03-13 06:43] LABS: ALKALINE PHOSPHATASE 189 U/L (38-126); AST/SGOT 78 U/L (17-59); BILIRUBIN,TOTAL 1.1 mg/dL (0.2-1.3); BLOOD UREA NITROGEN 3 mg/dL (9-20); CARBON DIOXIDE 27 mmol/L (22-30); GFR AFRICAN-AMERICAN > 60; GLUCOSE,RANDOM 113 mg/dL (75-110); PHOSPHOROUS 3.1 mg/dL (2.5-4.5); TOTAL PROTEIN 6.3 g/dL (6.3-8.3)
[2017-03-13 06:44] LABS: ALT/SGPT 60 U/L (21-72); CALCIUM 7.6 mg/dl (8.6-10.4); MAGNESIUM 1.2 mg/dL (1.6-2.3)
[2017-03-13 06:51] LABS: ALB/GLOB RATIO 0.8 (1.0-2.1)
[2017-03-13] MEDS: Propofol 10 mg/ml 1,000 MG/100 ML VIAL IV PRN ×3 (08:00→21:20)
--- NOTE | 2017-03-13 09:25 | RAD ---
HISTORY: intubated COMPARISON: 03/12/2017 FINDINGS: LUNGS: Lines and tubes in stable position. Additional tubing projects over the right jonathan thorax, possibly external. Venous congestion. Confluent opacity at the right lung base with associated effusion. PLEURA: As above. CARDIOVASCULAR: Normal. OSSEOUS STRUCTURES: No significant abnormalities. VISUALIZED UPPER ABDOMEN: Normal. OTHER FINDINGS: None. IMPRESSION: Lines and tubes in stable position. Additional tubing projects over the right jonathan thorax, possibly external. Venous congestion. Confluent opacity at the right lung base with associated effusion.
[2017-03-13] MEDS: Dextrose 5%/0.9% NS 1,000 ML IV SCH ×3 (09:40→20:10)
[2017-03-13] MEDS: Magnesium Sulfate 1 gm in D5W 1 GM/100 ML BAG IVPB SCH ×2 (09:40→10:55)
--- NOTE | 2017-03-13 11:56 | CP.CCUPN ---
<Matthew Melo - Last Filed: 03/13/17 15:22> CCU Subjective - Physician Review Subjective (Free Text): 03/13/17 11:55 PGY-1 progress note Pt seen and examined at bedside. No acute events overnight. Pt is intubated and sedated. Critical Care Time Spent (in minutes): 35 CCU Objective - Vital Signs / Intake & Output Intake and Output (Last 8hrs): Intake & Output 03/12/17 03/13/17 03/13/17 22:59 06:59 14:59 Intake Total 1430 450 155 Output Total 935 590 45 Balance 495 -140 110 Weight 160 lb Intake: IV 200 100 100 Intake, IV Amount 950 200 25 Left Forearm 750 Right Hand 200 200 25 Oral 40 Tube Feeding 240 150 30 Output: Urine 935 590 45 Urethral (Hdez) 935 590 45 Other: # Bowel Movements 1 - Physical Exam Head: Positive for: Normocephalic, Abrasion Pupils: Positive for: PERRL Extroacular Muscles: Positive for: EOMI Mouth: Positive for: Moist Mucous Membranes Respiratory/Chest: Positive for: Good Air Exchange. Negative for: Respiratory Distress Cardiovascular: Positive for: Regular Rate and Rhythm, Normal S1, S2 Abdomen: Positive for: Distention (in lower abdomen), Normal Bowel Sounds. Negative for: Tenderness Upper Extremity: Positive for: NORMAL PULSES, Neurovascularly Intact Lower Extremity: Positive for: NORMAL PULSES, Neurovascularly Intact Neurological: Positive for: Other (Sedated) Skin: Positive for: Warm, Dry Psychiatric: Positive for: Alert - Medications Active Medications: Active Medications Generic Name Dose Route Start Last Admin Trade Name Tabq PRN Reason Stop Dose Admin Acetylcysteine 4 ml 03/11/17 15:00 03/13/17 08:01 Acetylcysteine 20% INH 4 ml RQ6 JÚNIOR Administration Albuterol/Ipratropium 3 ml 03/11/17 20:00 03/13/17 08:01 Duoneb 3 Mg/0.5 Mg (3 Ml) Ud INH 3 ml RQ6 JÚNIOR Administration Levetiracetam 500 mg/ Sodium 105 mls @ 420 mls/hr 03/09/17 18:15 03/13/17 06: 15 Chloride IVPB 420 mls/hr Q12H JÚNIOR Administration Cefepime HCl 1 gm/ Dextrose 50 mls @ 100 mls/hr 03/09/17 21:00 03/13/17 05:00 IVPB 100 mls/hr Q8H JÚNIOR Administration Propofol 1,000 mg in 100 mls @ 2.041 mls/hr 03/10/17 22:00 03/13/17 08:00 Diprivan IV 60 mcg/kg/min .Q24H PRN 24.494 mls/hr TITRATE PER MD ORDER Administration Protocol 5 MCG/KG/MIN Dextrose/Sodium Chloride 1,000 mls @ 125 mls/hr 03/13/17 09:30 03/13/17 09:40 Dextrose 5%/0.9% Ns 1000 Ml IV 125 mls/hr .Q8H JÚNIOR Administration Lorazepam 1 mg 03/09/17 18:46 03/11/17 16:55 Ativan IVP 1 mg Q4H PRN Administration Symptoms of alcohol withdrawl Pantoprazole Sodium 40 mg 03/10/17 13:00 03/13/17 09:40 Protonix Inj IVP 40 mg DAILY JÚNIOR Administration - Patient Studies Lab Studies: Lab Studies 03/13/17 03/13/17 03/13/17 Range/Units 06:04 06:04 04:20 WBC 5.7 (4.8-10.8) K/uL RBC 4.01 L (4.40-5.90) Mil/uL Hgb 9.9 L (12.0-18.0) g/dL Hct 31.7 L (35.0-51.0) % MCV 78.9 L (80.0-94.0) fL MCH 24.6 L (27.0-31.0) pg MCHC 31.2 L (33.0-37.0) g/dL RDW 19.7 H (11.5-14.5) % Plt Count 100 L (130-400) K/uL MPV 8.9 (7.2-11.7) fL Neut % (Auto) 73.9 (50.0-75.0) % Lymph % (Auto) 13.5 L (20.0-40.0) % [place] % (Auto) 9.0 (0.0-10.0) % Eos % (Auto) 2.3 (0.0-4.0) % Baso % (Auto) 1.3 (0.0-2.0) % Neut # 4.2 (1.8-7.0) K/uL Lymph # 0.8 L (1.0-4.3) K/uL [place] # 0.5 (0.0-0.8) K/uL Eos # 0.1 (0.0-0.7) K/uL Baso # 0.1 (0.0-0.2) K/uL Puncture Site Rr pCO2 42 (35-45) mm/Hg pO2 77 L (80-100) mm/Hg HCO3 27.8 (21-28) mmol/L ABG pH 7.44 (7.35-7.45) ABG Total CO2 29.8 H (22-28) mmol/L ABG O2 Saturation 97.6 (95-98) % ABG Base Excess 3.8 H (-2.0-3.0) mmol/L ABG Hemoglobin 16.7 (11.7-17.4) g/dL ABG Carboxyhemoglobin 2.7 H (0.5-1.5) % POC ABG HHb (Measured) 2.3 (0.0-5.0) % ABG Methemoglobin 0.9 (0.0-3.0) % Mitesh Test Pos A-a O2 Difference 156.0 mm/Hg Respiratory Index 2.0 Hgb O2 Saturation 94.1 L (95.0-98.0) % Mechanical Rate 14 FiO2 40.0 % Tidal Volume 450 PEEP 5 Sodium 123 L (132-148) mmol/L Potassium 3.6 (3.6-5.2) mmol/L Chloride 89 L (98-107) mmol/L Carbon Dioxide 27 (22-30) mmol/L Anion Gap 11 (10-20) BUN 3 L (9-20) mg/dL Creatinine 0.5 L (0.8-1.5) MG/DL Est GFR ( Amer) > 60 Est GFR (Non-Af Amer) > 60 Random Glucose 113 H (75-110) mg/dL Calcium 7.6 L (8.6-10.4) mg/dl Phosphorus 3.1 (2.5-4.5) mg/dL Magnesium 1.2 L (1.6-2.3) mg/dL Total Bilirubin 1.1 (0.2-1.3) mg/dL AST 78 H (17-59) U/L ALT 60 (21-72) U/L Alkaline Phosphatase 189 H (38-126) U/L Total Protein 6.3 (6.3-8.3) g/dL Albumin 2.7 L (3.5-5.0) g/dL Globulin 3.6 (2.2-3.9) gm/dL Albumin/Globulin Ratio 0.8 L (1.0-2.1) Laboratory Results - last 24 hr 03/13/17 03/13/17 03/13/17 04:20 06:04 06:04 WBC 5.7 RBC 4.01 L Hgb 9.9 L Hct 31.7 L MCV 78.9 L MCH 24.6 L MCHC 31.2 L RDW 19.7 H Plt Count 100 L MPV 8.9 Neut % (Auto) 73.9 Lymph % (Auto) 13.5 L [place] % (Auto) 9.0 Eos % (Auto) 2.3 Baso % (Auto) 1.3 Neut # 4.2 Lymph # 0.8 L [place] # 0.5 Eos # 0.1 Baso # 0.1 Puncture Site Rr pCO2 42 pO2 77 L HCO3 27.8 ABG pH 7.44 ABG Total CO2 29.8 H ABG O2 Saturation 97.6 ABG Base Excess 3.8 H ABG Hemoglobin 16.7 ABG Carboxyhemoglobin 2.7 H POC ABG HHb (Measured) 2.3 ABG Methemoglobin 0.9 Mitesh Test Pos A-a O2 Difference 156.0 Respiratory Index 2.0 Hgb O2 Saturation 94.1 L Mechanical Rate 14 FiO2 40.0 Tidal Volume 450 PEEP 5 Sodium 123 L Potassium 3.6 Chloride 89 L Carbon Dioxide 27 Anion Gap 11 BUN 3 L Creatinine 0.5 L Est GFR ( Amer) > 60 Est GFR (Non-Af Amer) > 60 Random Glucose 113 H Calcium 7.6 L Phosphorus 3.1 Magnesium 1.2 L Total Bilirubin 1.1 AST 78 H ALT 60 Alkaline Phosphatase 189 H Total Protein 6.3 Albumin 2.7 L Globulin 3.6 Albumin/Globulin Ratio 0.8 L Review of Systems - Review of Systems Systems not reviewed;Unavailable: Intubated Critical Care Progress Note - Nutrition Nutrition: Nutrition Category Date Time Status NPO Diet [DIET] Diets 03/09/17 Dinner Active Assessment/Plan - Assessment and Plan (Free Text) Assessment: This is a 51 yo M with PMH of Etoh abuse admitted with R mastoid fracture, small subarachnoid and subdural hemorrhage, complicated by seizure secondary to Etoh withdrawal vs brain hemorrhage. Pt now intubated and sedated due to severe agitation. Plan: Neuro: Pt sedated and intubated. Will begin to wean off sedation today. Continue seizure prophylaxis with Keppra twice a day. Repeat head CT shows improvement, with blood resorption, of left temporal intraparenchymal hemorrhage. Pulm: Acute respiratory failure, patient was intubated (03/10) to protect his airway during severe EtOH withdrawal symptoms. On PRVC. CT angiogram negative for PE. Will begin to wean off sedation today and put on CPAP as tolerated CV: Hemodynamically stable, blood pressure within normal range. Hem: No acute issues, anemia of chronic disease. Renal: No acute issues, urine output within normal limits, will monitor. D5/NS at 125 Endo: No acute issues GI: Nothing by mouth. EtOH cirrhosis. Tube feedings, Isosource at 30. ID: Empiric treatment with cefepime for possibility of aspiration pneumonia. C diff positive, started on PO vanc DVT proph - SCDs, holding anticoagulation with current intracranial hemorrhage. GI proph - Protonix IV hdez for strict I/O's during acute illness Code status - full code <Robert Albert S - Last Filed: 03/13/17 17:21> CCU Objective - Vital Signs / Intake & Output Vital Signs (Last 4 hours): Vital Signs Temp Pulse Resp BP Pulse Ox 03/13/17 16:00 98.6 F 03/13/17 15:03 99 H 22 144/83 96 03/13/17 15:00 99 H 18 95 03/13/17 14:12 91 H 22 155/88 H 98 03/13/17 14:03 95 H 19 159/101 H 100 03/13/17 14:00 90 17 100 Intake and Output (Last 8hrs): Intake & Output 03/13/17 03/13/17 03/13/17 06:59 14:59 22:59 Intake Total 450 780 125 Output Total 590 445 75 Balance -140 335 50 Weight 160 lb Intake: IV 100 100 Intake, IV Amount 200 650 125 Right Hand 200 650 125 Oral 0 0 Tube Feeding 150 30 Output: Urine 590 445 75 Urethral (Hdez) 590 445 75 - Medications Active Medications: Active Medications Generic Name Dose Route Start Last Admin Trade Name Freq PRN Reason Stop Dose Admin Albuterol/Ipratropium 3 ml 03/11/17 20:00 03/13/17 13:37 Duoneb 3 Mg/0.5 Mg (3 Ml) Ud INH 3 ml RQ6 JÚNIOR Administration Levetiracetam 500 mg/ Sodium 105 mls @ 420 mls/hr 03/09/17 18:15 03/13/17 06: 15 Chloride IVPB 420 mls/hr Q12H JÚNIOR Administration Cefepime HCl 1 gm/ Dextrose 50 mls @ 100 mls/hr 03/09/17 21:00 03/13/17 05:00 IVPB 100 mls/hr Q8H JÚNIOR Administration Propofol 1,000 mg in 100 mls @ 2.041 mls/hr 03/10/17 22:00 03/13/17 08:00 Diprivan IV 60 mcg/kg/min .Q24H PRN 24.494 mls/hr TITRATE PER MD ORDER Administration Protocol 5 MCG/KG/MIN Dextrose/Sodium Chloride 1,000 mls @ 125 mls/hr 03/13/17 09:30 03/13/17 09:40 Dextrose 5%/0.9% Ns 1000 Ml IV 125 mls/hr .Q8H JÚNIOR Administration Lorazepam 1 mg 03/09/17 18:46 03/11/17 16:55 Ativan IVP 1 mg Q4H PRN Administration Symptoms of alcohol withdrawl Pantoprazole Sodium 40 mg 03/10/17 13:00 03/13/17 09:40 Protonix Inj IVP 40 mg DAILY JÚNIOR Administration Vancomycin HCl 250 mg 03/13/17 14:09 Vancocin (Oral Or Rectal Use) PO QID JÚNIOR - Patient Studies Lab Studies: Lab Studies 03/13/17 03/13/17 03/13/17 Range/Units 06:04 06:04 04:20 WBC 5.7 (4.8-10.8) K/uL RBC 4.01 L (4.40-5.90) Mil/uL Hgb 9.9 L (12.0-18.0) g/dL Hct 31.7 L (35.0-51.0) % MCV 78.9 L (80.0-94.0) fL MCH 24.6 L (27.0-31.0) pg MCHC 31.2 L (33.0-37.0) g/dL RDW 19.7 H (11.5-14.5) % Plt Count 100 L (130-400) K/uL MPV 8.9 (7.2-11.7) fL Neut % (Auto) 73.9 (50.0-75.0) % Lymph % (Auto) 13.5 L (20.0-40.0) % [place] % (Auto) 9.0 (0.0-10.0) % Eos % (Auto) 2.3 (0.0-4.0) % Baso % (Auto) 1.3 (0.0-2.0) % Neut # 4.2 (1.8-7.0) K/uL Lymph # 0.8 L (1.0-4.3) K/uL [place] # 0.5 (0.0-0.8) K/uL Eos # 0.1 (0.0-0.7) K/uL Baso # 0.1 (0.0-0.2) K/uL Puncture Site Rr pCO2 42 (35-45) mm/Hg pO2 77 L (80-100) mm/Hg HCO3 27.8 (21-28) mmol/L ABG pH 7.44 (7.35-7.45) ABG Total CO2 29.8 H (22-28) mmol/L ABG O2 Saturation 97.6 (95-98) % ABG Base Excess 3.8 H (-2.0-3.0) mmol/L ABG Hemoglobin 16.7 (11.7-17.4) g/dL ABG Carboxyhemoglobin 2.7 H (0.5-1.5) % POC ABG HHb (Measured) 2.3 (0.0-5.0) % ABG Methemoglobin 0.9 (0.0-3.0) % Mitesh Test Pos A-a O2 Difference 156.0 mm/Hg Respiratory Index 2.0 Hgb O2 Saturation 94.1 L (95.0-98.0) % Mechanical Rate 14 FiO2 40.0 % Tidal Volume 450 PEEP 5 Sodium 123 L (132-148) mmol/L Potassium 3.6 (3.6-5.2) mmol/L Chloride 89 L (98-107) mmol/L Carbon Dioxide 27 (22-30) mmol/L Anion Gap 11 (10-20) BUN 3 L (9-20) mg/dL Creatinine 0.5 L (0.8-1.5) MG/DL Est GFR ( Amer) > 60 Est GFR (Non-Af Amer) > 60 Random Glucose 113 H (75-110) mg/dL Calcium 7.6 L (8.6-10.4) mg/dl Phosphorus 3.1 (2.5-4.5) mg/dL Magnesium 1.2 L (1.6-2.3) mg/dL Total Bilirubin 1.1 (0.2-1.3) mg/dL AST 78 H (17-59) U/L ALT 60 (21-72) U/L Alkaline Phosphatase 189 H (38-126) U/L Total Protein 6.3 (6.3-8.3) g/dL Albumin 2.7 L (3.5-5.0) g/dL Globulin 3.6 (2.2-3.9) gm/dL Albumin/Globulin Ratio 0.8 L (1.0-2.1) C. difficile Ag & Toxin (NEGATIVE) 03/12/17 Range/Units 09:00 WBC (4.8-10.8) K/uL RBC (4.40-5.90) Mil/uL Hgb (12.0-18.0) g/dL Hct (35.0-51.0) % MCV (80.0-94.0) fL MCH (27.0-31.0) pg MCHC (33.0-37.0) g/dL RDW (11.5-14.5) % Plt Count (130-400) K/uL MPV (7.2-11.7) fL Neut % (Auto) (50.0-75.0) % Lymph % (Auto) (20.0-40.0) % [place] % (Auto) (0.0-10.0) % Eos % (Auto) (0.0-4.0) % Baso % (Auto) (0.0-2.0) % Neut # (1.8-7.0) K/uL Lymph # (1.0-4.3) K/uL [place] # (0.0-0.8) K/uL Eos # (0.0-0.7) K/uL Baso # (0.0-0.2) K/uL Puncture Site pCO2 (35-45) mm/Hg pO2 (80-100) mm/Hg HCO3 (21-28) mmol/L ABG pH (7.35-7.45) ABG Total CO2 (22-28) mmol/L ABG O2 Saturation (95-98) % ABG Base Excess (-2.0-3.0) mmol/L ABG Hemoglobin (11.7-17.4) g/dL ABG Carboxyhemoglobin (0.5-1.5) % POC ABG HHb (Measured) (0.0-5.0) % ABG Methemoglobin (0.0-3.0) % Mitesh Test A-a O2 Difference mm/Hg Respiratory Index Hgb O2 Saturation (95.0-98.0) % Mechanical Rate FiO2 % Tidal Volume PEEP Sodium (132-148) mmol/L Potassium (3.6-5.2) mmol/L Chloride (98-107) mmol/L Carbon Dioxide (22-30) mmol/L Anion Gap (10-20) BUN (9-20) mg/dL Creatinine (0.8-1.5) MG/DL Est GFR ( Amer) Est GFR (Non-Af Amer) Random Glucose (75-110) mg/dL Calcium (8.6-10.4) mg/dl Phosphorus (2.5-4.5) mg/dL Magnesium (1.6-2.3) mg/dL Total Bilirubin (0.2-1.3) mg/dL AST (17-59) U/L ALT (21-72) U/L Alkaline Phosphatase (38-126) U/L Total Protein (6.3-8.3) g/dL Albumin (3.5-5.0) g/dL Globulin (2.2-3.9) gm/dL Albumin/Globulin Ratio (1.0-2.1) C. difficile Ag & Toxin Positive H (NEGATIVE) Laboratory Results - last 24 hr 05/06/2103/13/17 03/13/17 09:00 04:20 06:04 WBC 5.7 RBC 4.01 L Hgb 9.9 L Hct 31.7 L MCV 78.9 L MCH 24.6 L MCHC 31.2 L RDW 19.7 H Plt Count 100 L MPV 8.9 Neut % (Auto) 73.9 Lymph % (Auto) 13.5 L [place] % (Auto) 9.0 Eos % (Auto) 2.3 Baso % (Auto) 1.3 Neut # 4.2 Lymph # 0.8 L [place] # 0.5 Eos # 0.1 Baso # 0.1 Puncture Site Rr pCO2 42 pO2 77 L HCO3 27.8 ABG pH 7.44 ABG Total CO2 29.8 H ABG O2 Saturation 97.6 ABG Base Excess 3.8 H ABG Hemoglobin 16.7 ABG Carboxyhemoglobin 2.7 H POC ABG HHb (Measured) 2.3 ABG Methemoglobin 0.9 Mitesh Test Pos A-a O2 Difference 156.0 Respiratory Index 2.0 Hgb O2 Saturation 94.1 L Mechanical Rate 14 FiO2 40.0 Tidal Volume 450 PEEP 5 Sodium Potassium Chloride Carbon Dioxide Anion Gap BUN Creatinine Est GFR ( Amer) Est GFR (Non-Af Amer) Random Glucose Calcium Phosphorus Magnesium Total Bilirubin AST ALT Alkaline Phosphatase Total Protein Albumin Globulin Albumin/Globulin Ratio C. difficile Ag & Toxin Positive H 03/13/17 06:04 WBC RBC Hgb Hct MCV MCH MCHC RDW Plt Count MPV Neut % (Auto) Lymph % (Auto) [place] % (Auto) Eos % (Auto) Baso % (Auto) Neut # Lymph # [place] # Eos # Baso # Puncture Site pCO2 pO2 HCO3 ABG pH ABG Total CO2 ABG O2 Saturation ABG Base Excess ABG Hemoglobin ABG Carboxyhemoglobin POC ABG HHb (Measured) ABG Methemoglobin Mitesh Test A-a O2 Difference Respiratory Index Hgb O2 Saturation Mechanical Rate FiO2 Tidal Volume PEEP Sodium 123 L Potassium 3.6 Chloride 89 L Carbon Dioxide 27 Anion Gap 11 BUN 3 L Creatinine 0.5 L Est GFR ( Amer) > 60 Est GFR (Non-Af Amer) > 60 Random Glucose 113 H Calcium 7.6 L Phosphorus 3.1 Magnesium 1.2 L Total Bilirubin 1.1 AST 78 H ALT 60 Alkaline Phosphatase 189 H Total Protein 6.3 Albumin 2.7 L Globulin 3.6 Albumin/Globulin Ratio 0.8 L C. difficile Ag & Toxin Critical Care Progress Note - Nutrition Nutrition: Nutrition Category Date Time Status NPO Diet [DIET] Diets 03/09/17 Dinner Active Attending/Attestation - Attestation I have personally seen and examined this patient.: Yes I have fully participated in the care of the patient.: Yes I have reviewed all pertinent clinical information: Yes Notes (Text): 03/13/17 17:19 Patient seen and examined in the intensive care unit. Case discussed with staff in the morning rounds, Remains intubated on ventilatory support FiO2 40% sedated on Diprivan Being treated for pneumonia Started on vancomycin for C. difficile colitis Scan of the abdomen
[2017-03-13] MEDS: Vancomycin 125 MG/5 ML SOLN (ORAL/RECTAL) PO SCH ×3 (14:30→22:05)
--- NOTE | 2017-03-13 16:19 | CP.PCM.PN ---
Subjective - Date & Time of Evaluation Date of Evaluation: 03/13/17 Time of Evaluation: 16:20 - Subjective Subjective: clinically same Objective - Vital Signs/Intake and Output Vital Signs (last 24 hours): Temp Pulse Resp BP Pulse Ox 98.9 F 99 H 22 144/83 96 03/13/17 12:00 03/13/17 15:03 03/13/17 15:03 03/13/17 15:03 03/13/17 15:03 Intake and Output: 03/13/17 03/13/17 06:59 18:59 Intake Total 1020 780 Output Total 1115 445 Balance -95 335 - Medications Medications: Current Medications Albuterol/Ipratropium (Duoneb 3 Mg/0.5 Mg (3 Ml) Ud) 3 ml INH RQ6 [facility] Last Admin: 03/13/17 13:37 Dose: 3 ml Levetiracetam 500 mg/ Sodium (Chloride) 105 mls @ 420 mls/hr IVPB Q12H [facility] Last Admin: 03/13/17 06:15 Dose: 420 mls/hr Cefepime HCl 1 gm/ Dextrose 50 mls @ 100 mls/hr IVPB Q8H JÚNIOR Last Admin: 03/13/17 05:00 Dose: 100 mls/hr Propofol (Diprivan) 1,000 mg in 100 mls @ 2.041 mls/hr IV .Q24H PRN; Protocol; 5 MCG/KG/MIN PRN Reason: TITRATE PER MD ORDER Last Admin: 03/13/17 08:00 Dose: 60 mcg/kg/min, 24.494 mls/hr Dextrose/Sodium Chloride (Dextrose 5%/0.9% Ns 1000 Ml) 1,000 mls @ 125 mls/hr IV .Q8H [facility] Last Admin: 03/13/17 09:40 Dose: 125 mls/hr Lorazepam (Ativan) 1 mg IVP Q4H PRN PRN Reason: Symptoms of alcohol withdrawl Last Admin: 03/11/17 16:55 Dose: 1 mg Pantoprazole Sodium (Protonix Inj) 40 mg IVP DAILY [facility] Last Admin: 03/13/17 09:40 Dose: 40 mg Vancomycin HCl (Vancocin (Oral Or Rectal Use)) 250 mg PO QID JÚNIOR - Labs Labs: 03/13/17 06:04 03/13/17 06:04 PT 15.0 SECONDS (9.7-12.2) H 03/09/17 16:28 INR 1.3 03/09/17 16:28 APTT 36 SECONDS (21-34) H 03/09/17 16:28 - Constitutional Appears: Well - Head Exam Head Exam: ATRAUMATIC, NORMAL INSPECTION, NORMOCEPHALIC - Eye Exam Eye Exam: EOMI, Normal appearance, PERRL Pupil Exam: NORMAL ACCOMODATION, PERRL - ENT Exam ENT Exam: Mucous Membranes Moist, Normal Exam - Neck Exam Neck Exam: Full ROM, Normal Inspection. absent: Lymphadenopathy - Respiratory Exam Respiratory Exam: Decreased Breath Sounds - Cardiovascular Exam Cardiovascular Exam: REGULAR RHYTHM, +S1, +S2 - GI/Abdominal Exam GI & Abdominal Exam: Soft, Diminished Bowel Sounds - Rectal Exam Rectal Exam: Deferred Assessment and Plan (1) Abdominal pain Status: Acute (2) Abrasion Status: Acute (3) Alcohol abuse with intoxication Status: Acute (4) Alcohol intoxication Status: Acute (5) Alcohol withdrawal Status: Acute (6) Alcohol withdrawal seizure Status: Acute (7) Bacteremia Status: Acute (8) Bilateral lower extremity edema Status: Acute (9) Breakthrough seizure Status: Acute (10) Cellulitis Status: Acute (11) Cellulitis of lower extremity Status: Acute (12) Chronic calcific pancreatitis Status: Acute (13) Dehydration Status: Acute (14) Diarrhea Status: Acute (15) Dressing change/suture removal Status: Acute (16) Drug dependence Status: Acute (17) Duodenitis Status: Acute (18) Electrolyte imbalance Status: Acute (19) Elevated alkaline phosphatase level Status: Acute (20) Facial laceration Status: Acute (21) Fever Status: Acute (22) Head trauma Status: Acute (23) Homelessness Status: Acute (24) Hyperphosphatemia Status: Acute (25) Hypokalemia Status: Acute (26) Hypokalemia with normal acid-base balance Status: Acute (27) Hypomagnesemia Status: Acute (28) Hypothermia Status: Acute (29) Low vitamin D level Status: Acute (30) Pancreatic mass Status: Acute (31) Pancreatitis, acute Status: Acute (32) Periapical abscess Status: Acute (33) Pneumonia Status: Acute (34) Pneumonia Status: Acute (35) Prophylactic measure Status: Acute (36) Respiratory failure with hypoxia and hypercapnia Status: Acute (37) Seizure Status: Acute (38) Skull fracture Status: Acute (39) Subarachnoid bleed Status: Acute (40) Subdural hematoma Status: Acute (41) Subdural hemorrhage Status: Acute (42) Thrombocythemia Status: Acute (43) Thrombocytopenia Status: Acute (44) Tobacco abuse Status: Acute (45) Tremors of nervous system Status: Acute (46) Vitamin D deficiency Status: Acute (47) Acute on chronic pancreatitis Status: Chronic (48) Alcohol abuse Status: Chronic (49) Alcohol abuse Status: Chronic (50) Alcohol dependence Status: Chronic (51) Anemia Status: Chronic (52) Anxiety and depression Status: Chronic (53) Aspiration into lower respiratory tract Status: Chronic (54) COPD (chronic obstructive pulmonary disease) Status: Chronic (55) Cholecystitis Status: Chronic (56) Chronic pancreatitis Status: Chronic (57) Depression Status: Chronic (58) Hypertension Status: Chronic (59) Peripheral motor neuropathy Status: Chronic (60) Empyema Status: Suspected (61) Seizure Status: Resolved - Assessment and Plan (Free Text) Plan: Follow-up neurologist Follow-up ID Continue Duoneb Continue antibiotics Continue Ativan Continue Protonix Continue Keppra
--- NOTE | 2017-03-13 16:24 | CP.PCM.PN ---
Subjective - Date & Time of Evaluation Date of Evaluation: 03/13/17 Time of Evaluation: 16:23 - Subjective Subjective: Patient seen and examined No events over night Objective - Vital Signs/Intake and Output Vital Signs (last 24 hours): Temp Pulse Resp BP Pulse Ox 98.9 F 99 H 22 144/83 96 03/13/17 12:00 03/13/17 15:03 03/13/17 15:03 03/13/17 15:03 03/13/17 15:03 Intake and Output: 03/13/17 03/13/17 06:59 18:59 Intake Total 1020 780 Output Total 1115 445 Balance -95 335 - Medications Medications: Current Medications Albuterol/Ipratropium (Duoneb 3 Mg/0.5 Mg (3 Ml) Ud) 3 ml INH RQ6 [facility] Last Admin: 03/13/17 13:37 Dose: 3 ml Levetiracetam 500 mg/ Sodium (Chloride) 105 mls @ 420 mls/hr IVPB Q12H [facility] Last Admin: 03/13/17 06:15 Dose: 420 mls/hr Cefepime HCl 1 gm/ Dextrose 50 mls @ 100 mls/hr IVPB Q8H [facility] Last Admin: 03/13/17 05:00 Dose: 100 mls/hr Propofol (Diprivan) 1,000 mg in 100 mls @ 2.041 mls/hr IV .Q24H PRN; Protocol; 5 MCG/KG/MIN PRN Reason: TITRATE PER MD ORDER Last Admin: 03/13/17 08:00 Dose: 60 mcg/kg/min, 24.494 mls/hr Dextrose/Sodium Chloride (Dextrose 5%/0.9% Ns 1000 Ml) 1,000 mls @ 125 mls/hr IV .Q8H [facility] Last Admin: 03/13/17 09:40 Dose: 125 mls/hr Lorazepam (Ativan) 1 mg IVP Q4H PRN PRN Reason: Symptoms of alcohol withdrawl Last Admin: 03/11/17 16:55 Dose: 1 mg Pantoprazole Sodium (Protonix Inj) 40 mg IVP DAILY [facility] Last Admin: 03/13/17 09:40 Dose: 40 mg Vancomycin HCl (Vancocin (Oral Or Rectal Use)) 250 mg PO QID JÚNIOR - Labs Labs: 03/13/17 06:04 03/13/17 06:04 PT 15.0 SECONDS (9.7-12.2) H 03/09/17 16:28 INR 1.3 03/09/17 16:28 APTT 36 SECONDS (21-34) H 03/09/17 16:28 - Head Exam Head Exam: NORMAL INSPECTION - Eye Exam Eye Exam: Normal appearance - ENT Exam ENT Exam: Mucous Membranes Moist - Respiratory Exam Respiratory Exam: Rhonchi - Cardiovascular Exam Cardiovascular Exam: REGULAR RHYTHM, +S1, +S2 - GI/Abdominal Exam GI & Abdominal Exam: Normal Bowel Sounds - Extremities Exam Extremities Exam: Normal Inspection Assessment and Plan - Assessment and Plan (Free Text) Assessment: Acute respiratory failure Pneumonia COPD Right mastoid fracture Subarachnoid hemorrhage Subdural hemorrhage Seizures History of alcohol abuse Continue full vent support Continue antibiotic Bronchodilators Seizure prophylaxis Thiamine and folate Rest as per ICU management DVT/GI prophylaxis
[2017-03-13] MEDS ORDERED: Iohexol 240 (50 ml) PO ONE (17:30)
--- NOTE | 2017-03-13 22:47 | CT ---
EXAM: CT Abdomen and Pelvis With Intravenous Contrast CLINICAL HISTORY: 51 years old, male; Pain; Abdominal pain; Patient HX: 3; Additional info: Lower abdominal distention TECHNIQUE: Axial computed tomography images of the abdomen and pelvis with intravenous contrast. This CT exam was performed using one or more of the following dose reduction techniques: automated exposure control, adjustment of the mA and/or kV according to patient size, and/or use of iterative reconstruction technique. Coronal and sagittal reformatted images were created and reviewed. CONTRAST: 240 mL of oral administered intravenously. EXAM DATE/TIME: 03/13/2017 4:51 PM COMPARISON: Prior CT abdomen and pelvis of 12/06/2016 FINDINGS: LIMITATIONS: Exam is limited by mild mild to moderate motion artifact. LOWER THORAX: Dense consolidation in the right lung base posteriorly, associated with air bronchograms, suspicious for pneumonia. Multiple ill-defined nodular densities in the left lung base, suspicious for a multinodular type pneumonia/infection, in an acute setting and given the appearance. Followup is recommended, given the nodularity. Small left pleural effusion. Heart appears mildly enlarged. ABDOMEN: LIVER: Liver demonstrates diffuse fatty infiltration, and has a mildly nodular contour, suggestive of mild cirrhosis. GALLBLADDER AND BILE DUCTS: Comment bile duct appears dilated, similar to on the prior exam, measuring 1.4 cm. No common bile duct stones are visualized. No CT evidence of acute cholecystitis. PANCREAS: Extensive pancreatic calcifications, compatible with chronic pancreatitis. Again seen in the pancreatic head is a round fluid density/cystic mass, suspicious for a pancreatic pseudocyst. This has mildly enlarged in size, now measuring 3.9 x 3.4 cm (previously 2.9 x 2.5 cm). No definite CT evidence of pancreatitis. SPLEEN: No acute abnormality of the spleen identified. ADRENALS: No acute abnormality of the adrenal glands identified. KIDNEYS AND URETERS: Mild bilateral hydroureter. No causative obstructing stones are seen in either ureter, and this most likely represents reflux of urine from the dilated bladder. Bilateral perinephric stranding, a nonspecific finding. STOMACH AND BOWEL: Mild, diffuse wall thickening of the ascending colon, suspicious for mild colitis Otherwise, no significant abnormality of the bowel is identified. . Otherwise, no significant abnormality of the bowel is identified. No acute abnormality of the stomach or duodenum identified. No evidence of small bowel obstruction. APPENDIX:Appendix is seen, and is within normal limits in appearance. PELVIS: BLADDER: Bladder is markedly dilated. Small focus of air seen in the bladder lumen, most likely iatrogenic. Abreu catheter is malpositioned. The balloon and tip of the catheter are located within the posterior penile urethra. REPRODUCTIVE: No acute abnormality of the reproductive organs is seen. ABDOMEN and PELVIS: INTRAPERITONEAL SPACE: Small amount of abdominal and pelvic free fluid. No evidence of free air. RETROPERITONEAL SPACE: Small amount of fluid is seen in the retroperitoneal space diffusely, in the anterior and posterior pararenal spaces, as well as in the presacral space, in the posterior pelvis. There is no evidence of retroperitoneal hemorrhage/hematoma. BONES/JOINTS: Bilateral pars defects at L5. SOFT TISSUES: Diffuse, mild. subcutaneous edema/anasarca. VASCULATURE: No evidence of abdominal aortic aneurysm. No evidence of periaortic hemorrhage. LYMPH NODES: No evidence of diffuse lymphadenopathy. TUBES, LINES AND DEVICES: Enteric tube terminates in the proximal stomach. IMPRESSION: - Malpositioned Abreu catheter, the tip and balloon of which are located in the posterior penile urethra. - Marked bladder dilatation. Mild bilateral hydroureter, most likely secondary to reflux of urine from the dilated bladder. - Findings suspicious for pneumonia in the lung bases bilaterally. Please see above for a full description. - Small amount of retroperitoneal fluid, small amount of abdominal and pelvic free fluid, diffuse subcutaneous edema/anasarca, and a small left pleural effusion. - Findings suspicious for mild colitis involving the ascending colon. - Cystic mass in the pancreatic head, most likely a chronic pseudocyst. This is mildly enlarged in size compared to a 12/06/2016 CT. Evidence of marked chronic pancreatitis again noted. - Biliary ductal dilatation, stable in appearance compared to the previous exam. - See above for remaining findings.
[2017-03-14] MEDS: Propofol 10 mg/ml 1,000 MG/100 ML VIAL IV PRN ×6 (01:18→20:33)
[2017-03-14] MEDS: Albuterol-Ipratrop 3 mg / 0.5 (3 ml) UD INH SCH ×4 (01:29→19:38)
[2017-03-14] MEDS: Dextrose 5%/0.9% NS 1,000 ML IV SCH ×4 (01:50→17:30)
[2017-03-14] MEDS: levETIRAcetam 500 MG in Sodium Chloride 0.9% 100 ML IVPB SCH ×2 (05:15→18:29)
[2017-03-14 05:51] LABS: ABG ALLEN TEST POS; ABG MECHANICAL RATE 14; ARTERIAL BLOOD HGB O2 SAT 94.5 % (95.0-98.0); ATERIAL BLOOD GAS PEEP 5; CARBOXYHEMOGLOBIN 2.6 % (0.5-1.5); DRAW SITE L RAD; HHB 1.5 % (0.0-5.0); METHEMOGLOBIN 1.4 % (0.0-3.0)
[2017-03-14 06:14] LABS: EOS # 0.2 K/uL (0.0-0.7); HEMATOCRIT 26.9 % (35.0-51.0); LYMPH # 0.6 K/uL (1.0-4.3); LYMPH % 14.2 % (20.0-40.0); MEAN CELL VOLUME 79.6 fL (80.0-94.0); MEAN CORPUSCULAR HEMOGLOBIN 28.6 pg (27.0-31.0); MEAN CORPUSCULAR HGB CONC 35.9 g/dL (33.0-37.0); MEAN PLATELET VOLUME 9.5 fL (7.2-11.7); MONO # 0.5 K/uL (0.0-0.8); MONO % 12.4 % (0.0-10.0); NRBC % 0.2 % (0.0-2.0); RED CELL DISTRIBUTION WIDTH 19.6 % (11.5-14.5); WHITE BLOOD COUNT 4.3 K/uL (4.8-10.8)
[2017-03-14 06:47] LABS: CHLORIDE 92 mmol/L (98-107); SODIUM 126 mmol/L (132-148)
[2017-03-14 06:48] LABS: POTASSIUM 3.2 mmol/L (3.6-5.2)
[2017-03-14 06:50] LABS: ALKALINE PHOSPHATASE 150 U/L (38-126); ALT/SGPT 49 U/L (21-72); AST/SGOT 51 U/L (17-59); BILIRUBIN,TOTAL 0.6 mg/dL (0.2-1.3); BLOOD UREA NITROGEN 3 mg/dL (9-20); CARBON DIOXIDE 27 mmol/L (22-30); GFR AFRICAN-AMERICAN > 60; GLUCOSE,RANDOM 125 mg/dL (75-110); TOTAL PROTEIN 5.6 g/dL (6.3-8.3)
[2017-03-14 06:51] LABS: CALCIUM 7.2 mg/dl (8.6-10.4); MAGNESIUM 1.4 mg/dL (1.6-2.3)
[2017-03-14 06:57] LABS: ALB/GLOB RATIO 0.6 (1.0-2.1)
[2017-03-14] MEDS: Vancomycin 125 MG/5 ML SOLN (ORAL/RECTAL) PO SCH ×4 (09:49→21:40)
[2017-03-14] MEDS: Magnesium Sulfate 1 gm in D5W 1 GM/100 ML BAG IVPB SCH ×5 (10:45→17:00)
--- NOTE | 2017-03-14 11:15 | CP.CCUPN ---
<Matthew Melo - Last Filed: 03/14/17 11:12> CCU Subjective - Physician Review Subjective (Free Text): 03/14/17 11:12 PGY-1 progress note Pt seen and examined at bedside. No acute events overnight, pt intubated and sedated. Critical Care Time Spent (in minutes): 35 CCU Objective - Vital Signs / Intake & Output Vital Signs (Last 4 hours): Vital Signs Temp Pulse Resp BP Pulse Ox 03/14/17 10:12 94 H 23 130/68 100 03/14/17 09:12 82 18 105/50 L 97 03/14/17 08:12 89 18 116/55 L 97 03/14/17 08:00 98.5 F 83 14 100 Intake and Output (Last 8hrs): Intake & Output 03/13/17 03/14/17 03/14/17 22:59 06:59 14:59 Intake Total 648.0 1761.0 743.0 Output Total 475 4300 440 Balance 173.0 -2539.0 303.0 Weight 155 lb Intake: IV 200 100 Intake, IV Amount 648.0 1121.0 523.0 Left Forearm 425 925 425 Right Hand 223.0 196.0 98.0 Oral 0 Tube Feeding 0 240 120 Other 200 Output: Urine 475 4300 440 Urethral (Hdez) 475 4300 440 Other: # Bowel Movements 0 - Physical Exam Head: Positive for: Normocephalic, Abrasion Pupils: Positive for: PERRL Extroacular Muscles: Positive for: EOMI Mouth: Positive for: Moist Mucous Membranes Respiratory/Chest: Positive for: Good Air Exchange. Negative for: Respiratory Distress Cardiovascular: Positive for: Regular Rate and Rhythm, Normal S1, S2 Abdomen: Positive for: Normal Bowel Sounds. Negative for: Tenderness, Distention Upper Extremity: Positive for: NORMAL PULSES, Neurovascularly Intact Lower Extremity: Positive for: NORMAL PULSES, Neurovascularly Intact Neurological: Positive for: Other (Sedated) Skin: Positive for: Warm, Dry Psychiatric: Positive for: Alert - Medications Active Medications: Active Medications Generic Name Dose Route Start Last Admin Trade Name Freq PRN Reason Stop Dose Admin Albuterol/Ipratropium 3 ml 03/11/17 20:00 03/14/17 07:44 Duoneb 3 Mg/0.5 Mg (3 Ml) Ud INH 3 ml RQ6 JÚNIOR Administration Levetiracetam 500 mg/ Sodium 105 mls @ 420 mls/hr 03/09/17 18:15 03/14/17 05: 15 Chloride IVPB 420 mls/hr Q12H JÚNIOR Administration Cefepime HCl 1 gm/ Dextrose 50 mls @ 100 mls/hr 03/09/17 21:00 03/14/17 04:13 IVPB 100 mls/hr Q8H JÚNIOR Administration Propofol 1,000 mg in 100 mls @ 2.041 mls/hr 03/10/17 22:00 03/14/17 09:54 Diprivan IV 60 mcg/kg/min .Q24H PRN 24.494 mls/hr TITRATE PER MD ORDER Administration Protocol 5 MCG/KG/MIN Dextrose/Sodium Chloride 1,000 mls @ 125 mls/hr 03/13/17 09:30 03/14/17 05:05 Dextrose 5%/0.9% Ns 1000 Ml IV 125 mls/hr .Q8H JÚNIOR Administration Magnesium Sulfate/Dextrose 1 gm in 100 mls @ 100 mls/hr 03/14/17 10:00 Magnesium Sulfate 1 Gm/100 Ml D5w IVPB 03/14/17 11:59 Q1H JÚNIOR Folic Acid 1 mg/ Sodium 100.2 mls @ 60 mls/hr 03/14/17 11:15 Chloride IV DAILY JÚNIOR Lorazepam 1 mg 03/09/17 18:46 03/11/17 16:55 Ativan IVP 1 mg Q4H PRN Administration Symptoms of alcohol withdrawl Pantoprazole Sodium 40 mg 03/10/17 13:00 03/14/17 09:48 Protonix Inj IVP 40 mg DAILY JÚNIOR Administration Thiamine HCl 100 mg 03/14/17 11:15 Vitamin B1 Inj IV DAILY JÚNIOR Vancomycin HCl 250 mg 03/13/17 14:09 03/14/17 09:49 Vancocin (Oral Or Rectal Use) PO 250 mg QID JÚNIOR Administration - Patient Studies Lab Studies: Lab Studies 03/14/17 03/14/17 03/14/17 Range/Units 06:08 06:05 05:16 WBC 4.3 L (4.8-10.8) K/uL RBC 3.37 L (4.40-5.90) Mil/uL Hgb 9.6 L (12.0-18.0) g/dL Hct 26.9 L (35.0-51.0) % MCV 79.6 L (80.0-94.0) fL MCH 28.6 (27.0-31.0) pg MCHC 35.9 (33.0-37.0) g/dL RDW 19.6 H (11.5-14.5) % Plt Count 97 L (130-400) K/uL MPV 9.5 (7.2-11.7) fL Neut % (Auto) 67.4 (50.0-75.0) % Lymph % (Auto) 14.2 L (20.0-40.0) % [place] % (Auto) 12.4 H (0.0-10.0) % Eos % (Auto) 5.0 H (0.0-4.0) % Baso % (Auto) 1.0 (0.0-2.0) % Neut # 2.9 (1.8-7.0) K/uL Lymph # 0.6 L (1.0-4.3) K/uL [place] # 0.5 (0.0-0.8) K/uL Eos # 0.2 (0.0-0.7) K/uL Baso # 0.0 (0.0-0.2) K/uL Puncture Site L rad pCO2 44 (35-45) mm/Hg pO2 80 (80-100) mm/Hg HCO3 30.7 H (21-28) mmol/L ABG pH 7.47 H (7.35-7.45) ABG Total CO2 33.4 H (22-28) mmol/L ABG O2 Saturation 98.4 H (95-98) % ABG Base Excess 7.5 H (-2.0-3.0) mmol/L ABG Hemoglobin 9.2 L (11.7-17.4) g/dL ABG Carboxyhemoglobin 2.6 H (0.5-1.5) % POC ABG HHb (Measured) 1.5 (0.0-5.0) % ABG Methemoglobin 1.4 (0.0-3.0) % Mitesh Test Pos A-a O2 Difference 150.0 mm/Hg Respiratory Index 1.9 Hgb O2 Saturation 94.5 L (95.0-98.0) % Mechanical Rate 14 FiO2 40.0 % Tidal Volume 450 PEEP 5 Sodium 126 L (132-148) mmol/L Potassium 3.2 L (3.6-5.2) mmol/L Chloride 92 L (98-107) mmol/L Carbon Dioxide 27 (22-30) mmol/L Anion Gap 10 (10-20) BUN 3 L (9-20) mg/dL Creatinine 0.4 L (0.8-1.5) MG/DL Est GFR ( Amer) > 60 Est GFR (Non-Af Amer) > 60 Random Glucose 125 H (75-110) mg/dL Calcium 7.2 L (8.6-10.4) mg/dl Phosphorus 3.0 (2.5-4.5) mg/dL Magnesium 1.4 L (1.6-2.3) mg/dL Total Bilirubin 0.6 (0.2-1.3) mg/dL AST 51 (17-59) U/L ALT 49 (21-72) U/L Alkaline Phosphatase 150 H D (38-126) U/L Total Protein 5.6 L (6.3-8.3) g/dL Albumin 2.2 L (3.5-5.0) g/dL Globulin 3.4 (2.2-3.9) gm/dL Albumin/Globulin Ratio 0.6 L (1.0-2.1) C. difficile Ag & Toxin (NEGATIVE) 03/12/17 Range/Units 09:00 WBC (4.8-10.8) K/uL RBC (4.40-5.90) Mil/uL Hgb (12.0-18.0) g/dL Hct (35.0-51.0) % MCV (80.0-94.0) fL MCH (27.0-31.0) pg MCHC (33.0-37.0) g/dL RDW (11.5-14.5) % Plt Count (130-400) K/uL MPV (7.2-11.7) fL Neut % (Auto) (50.0-75.0) % Lymph % (Auto) (20.0-40.0) % [place] % (Auto) (0.0-10.0) % Eos % (Auto) (0.0-4.0) % Baso % (Auto) (0.0-2.0) % Neut # (1.8-7.0) K/uL Lymph # (1.0-4.3) K/uL [place] # (0.0-0.8) K/uL Eos # (0.0-0.7) K/uL Baso # (0.0-0.2) K/uL Puncture Site pCO2 (35-45) mm/Hg pO2 (80-100) mm/Hg HCO3 (21-28) mmol/L ABG pH (7.35-7.45) ABG Total CO2 (22-28) mmol/L ABG O2 Saturation (95-98) % ABG Base Excess (-2.0-3.0) mmol/L ABG Hemoglobin (11.7-17.4) g/dL ABG Carboxyhemoglobin (0.5-1.5) % POC ABG HHb (Measured) (0.0-5.0) % ABG Methemoglobin (0.0-3.0) % Mitesh Test A-a O2 Difference mm/Hg Respiratory Index Hgb O2 Saturation (95.0-98.0) % Mechanical Rate FiO2 % Tidal Volume PEEP Sodium (132-148) mmol/L Potassium (3.6-5.2) mmol/L Chloride (98-107) mmol/L Carbon Dioxide (22-30) mmol/L Anion Gap (10-20) BUN (9-20) mg/dL Creatinine (0.8-1.5) MG/DL Est GFR ( Amer) Est GFR (Non-Af Amer) Random Glucose (75-110) mg/dL Calcium (8.6-10.4) mg/dl Phosphorus (2.5-4.5) mg/dL Magnesium (1.6-2.3) mg/dL Total Bilirubin (0.2-1.3) mg/dL AST (17-59) U/L ALT (21-72) U/L Alkaline Phosphatase (38-126) U/L Total Protein (6.3-8.3) g/dL Albumin (3.5-5.0) g/dL Globulin (2.2-3.9) gm/dL Albumin/Globulin Ratio (1.0-2.1) C. difficile Ag & Toxin Positive H (NEGATIVE) Laboratory Results - last 24 hr 03/12/17 03/14/17 03/14/17 09:00 05:16 06:05 WBC RBC Hgb Hct MCV MCH MCHC RDW Plt Count MPV Neut % (Auto) Lymph % (Auto) [place] % (Auto) Eos % (Auto) Baso % (Auto) Neut # Lymph # [place] # Eos # Baso # Puncture Site L rad pCO2 44 pO2 80 HCO3 30.7 H ABG pH 7.47 H ABG Total CO2 33.4 H ABG O2 Saturation 98.4 H ABG Base Excess 7.5 H ABG Hemoglobin 9.2 L ABG Carboxyhemoglobin 2.6 H POC ABG HHb (Measured) 1.5 ABG Methemoglobin 1.4 Mitesh Test Pos A-a O2 Difference 150.0 Respiratory Index 1.9 Hgb O2 Saturation 94.5 L Mechanical Rate 14 FiO2 40.0 Tidal Volume 450 PEEP 5 Sodium 126 L Potassium 3.2 L Chloride 92 L Carbon Dioxide 27 Anion Gap 10 BUN 3 L Creatinine 0.4 L Est GFR ( Amer) > 60 Est GFR (Non-Af Amer) > 60 Random Glucose 125 H Calcium 7.2 L Phosphorus 3.0 Magnesium 1.4 L Total Bilirubin 0.6 AST 51 ALT 49 Alkaline Phosphatase 150 H D Total Protein 5.6 L Albumin 2.2 L Globulin 3.4 Albumin/Globulin Ratio 0.6 L C. difficile Ag & Toxin Positive H 03/14/17 06:08 WBC 4.3 L RBC 3.37 L Hgb 9.6 L Hct 26.9 L MCV 79.6 L MCH 28.6 MCHC 35.9 RDW 19.6 H Plt Count 97 L MPV 9.5 Neut % (Auto) 67.4 Lymph % (Auto) 14.2 L [place] % (Auto) 12.4 H Eos % (Auto) 5.0 H Baso % (Auto) 1.0 Neut # 2.9 Lymph # 0.6 L [place] # 0.5 Eos # 0.2 Baso # 0.0 Puncture Site pCO2 pO2 HCO3 ABG pH ABG Total CO2 ABG O2 Saturation ABG Base Excess ABG Hemoglobin ABG Carboxyhemoglobin POC ABG HHb (Measured) ABG Methemoglobin Mitesh Test A-a O2 Difference Respiratory Index Hgb O2 Saturation Mechanical Rate FiO2 Tidal Volume PEEP Sodium Potassium Chloride Carbon Dioxide Anion Gap BUN Creatinine Est GFR ( Amer) Est GFR (Non-Af Amer) Random Glucose Calcium Phosphorus Magnesium Total Bilirubin AST ALT Alkaline Phosphatase Total Protein Albumin Globulin Albumin/Globulin Ratio C. difficile Ag & Toxin Review of Systems - Review of Systems Systems not reviewed;Unavailable: Intubated Critical Care Progress Note - Nutrition Nutrition: Nutrition Category Date Time Status NPO Diet [DIET] Diets 03/09/17 Dinner Active Assessment/Plan - Assessment and Plan (Free Text) Assessment: This is a 51 yo M with PMH of Etoh abuse admitted with R mastoid fracture, small subarachnoid and subdural hemorrhage, complicated by seizure secondary to Etoh withdrawal vs brain hemorrhage. Pt now being treated for pneumonia, intubated and sedated due to severe agitation. Plan: Neuro: Pt sedated and intubated. Failed trial yesterday, will attempt to wean off sedation again today Continue seizure prophylaxis with Keppra twice a day. Repeat head CT shows improvement, with blood resorption, of left temporal intraparenchymal hemorrhage. Pulm: Acute respiratory failure, patient was intubated (03/10) to protect his airway during severe EtOH withdrawal symptoms. On PRVC. CT angiogram negative for PE. Will begin to wean off sedation today and put on CPAP as tolerated. Being treated for pneumonia with CXR shoing a confluent opacity at the right lung base. On cefepime and vanco (for c. diff). WIll get procalcitonin today. CV: Hemodynamically stable, blood pressure within normal range. Hem: No acute issues, anemia of chronic disease. Renal: Yesterday hdez improperly placed, pt retaining urine as seen on CT. Replaced hdez with good urine return. Abdomen now soft, non-distended. Making good urine. No acute issues. Endo: No acute issues GI: Nothing by mouth. EtOH cirrhosis. Tube feedings, Isosource at 30. ID: Empiric treatment with cefepime for possibility of aspiration pneumonia. C diff positive, started on PO vanc. Will get procalcitonin today. DVT proph - SCDs, holding anticoagulation with current intracranial hemorrhage. GI proph - Protonix IV hdez for strict I/O's during acute illness Code status - full code <Robert Albert S - Last Filed: 03/14/17 16:14> CCU Objective - Vital Signs / Intake & Output Intake and Output (Last 8hrs): Intake & Output 03/14/17 03/14/17 03/14/17 06:59 14:59 22:59 Intake Total 1761.0 743.0 Output Total 4300 440 Balance -2539.0 303.0 Weight 155 lb Intake: IV 200 100 Intake, IV Amount 1121.0 523.0 Left Forearm 925 425 Right Hand 196.0 98.0 Tube Feeding 240 120 Other 200 Output: Urine 4300 440 Urethral (Hdez) 4300 440 Other: # Bowel Movements 0 - Medications Active Medications: Active Medications Generic Name Dose Route Start Last Admin Trade Name Freq PRN Reason Stop Dose Admin Albuterol/Ipratropium 3 ml 03/11/17 20:00 03/14/17 13:27 Duoneb 3 Mg/0.5 Mg (3 Ml) Ud INH 3 ml RQ6 JÚNIOR Administration Levetiracetam 500 mg/ Sodium 105 mls @ 420 mls/hr 03/09/17 18:15 03/14/17 05: 15 Chloride IVPB 420 mls/hr Q12H JÚNIOR Administration Cefepime HCl 1 gm/ Dextrose 50 mls @ 100 mls/hr 03/09/17 21:00 03/14/17 14:00 IVPB 100 mls/hr Q8H JÚNIOR Administration Propofol 1,000 mg in 100 mls @ 2.041 mls/hr 03/10/17 22:00 03/14/17 09:54 Diprivan IV 60 mcg/kg/min .Q24H PRN 24.494 mls/hr TITRATE PER MD ORDER Administration Protocol 5 MCG/KG/MIN Dextrose/Sodium Chloride 1,000 mls @ 125 mls/hr 03/13/17 09:30 03/14/17 15:39 Dextrose 5%/0.9% Ns 1000 Ml IV 125 mls/hr .Q8H JÚNIOR Administration Folic Acid 1 mg/ Sodium 100.2 mls @ 60 mls/hr 03/14/17 11:15 03/14/17 13:00 Chloride IV 60 mls/hr DAILY JÚNIOR Administration Lorazepam 1 mg 03/09/17 18:46 03/11/17 16:55 Ativan IVP 1 mg Q4H PRN Administration Symptoms of alcohol withdrawl Pantoprazole Sodium 40 mg 05/06/17 13:00 03/14/17 09:48 Protonix Inj IVP 40 mg DAILY JÚNIOR Administration Thiamine HCl 100 mg 03/14/17 11:15 03/14/17 13:00 Vitamin B1 Inj IV 100 mg DAILY JÚNIOR Administration Vancomycin HCl 250 mg 03/13/17 14:09 03/14/17 15:43 Vancocin (Oral Or Rectal Use) PO 250 mg QID JÚNIOR Administration - Patient Studies Lab Studies: Lab Studies 03/14/17 03/14/17 03/14/17 Range/Units 06:08 06:05 05:16 WBC 4.3 L (4.8-10.8) K/uL RBC 3.37 L (4.40-5.90) Mil/uL Hgb 9.6 L (12.0-18.0) g/dL Hct 26.9 L (35.0-51.0) % MCV 79.6 L (80.0-94.0) fL MCH 28.6 (27.0-31.0) pg MCHC 35.9 (33.0-37.0) g/dL RDW 19.6 H (11.5-14.5) % Plt Count 97 L (130-400) K/uL MPV 9.5 (7.2-11.7) fL Neut % (Auto) 67.4 (50.0-75.0) % Lymph % (Auto) 14.2 L (20.0-40.0) % [place] % (Auto) 12.4 H (0.0-10.0) % Eos % (Auto) 5.0 H (0.0-4.0) % Baso % (Auto) 1.0 (0.0-2.0) % Neut # 2.9 (1.8-7.0) K/uL Lymph # 0.6 L (1.0-4.3) K/uL [place] # 0.5 (0.0-0.8) K/uL Eos # 0.2 (0.0-0.7) K/uL Baso # 0.0 (0.0-0.2) K/uL Puncture Site L rad pCO2 44 (35-45) mm/Hg pO2 80 (80-100) mm/Hg HCO3 30.7 H (21-28) mmol/L ABG pH 7.47 H (7.35-7.45) ABG Total CO2 33.4 H (22-28) mmol/L ABG O2 Saturation 98.4 H (95-98) % ABG Base Excess 7.5 H (-2.0-3.0) mmol/L ABG Hemoglobin 9.2 L (11.7-17.4) g/dL ABG Carboxyhemoglobin 2.6 H (0.5-1.5) % POC ABG HHb (Measured) 1.5 (0.0-5.0) % ABG Methemoglobin 1.4 (0.0-3.0) % Mitesh Test Pos A-a O2 Difference 150.0 mm/Hg Respiratory Index 1.9 Hgb O2 Saturation 94.5 L (95.0-98.0) % Mechanical Rate 14 FiO2 40.0 % Tidal Volume 450 PEEP 5 Sodium 126 L (132-148) mmol/L Potassium 3.2 L (3.6-5.2) mmol/L Chloride 92 L (98-107) mmol/L Carbon Dioxide 27 (22-30) mmol/L Anion Gap 10 (10-20) BUN 3 L (9-20) mg/dL Creatinine 0.4 L (0.8-1.5) MG/DL Est GFR ( Amer) > 60 Est GFR (Non-Af Amer) > 60 Random Glucose 125 H (75-110) mg/dL Calcium 7.2 L (8.6-10.4) mg/dl Phosphorus 3.0 (2.5-4.5) mg/dL Magnesium 1.4 L (1.6-2.3) mg/dL Total Bilirubin 0.6 (0.2-1.3) mg/dL AST 51 (17-59) U/L ALT 49 (21-72) U/L Alkaline Phosphatase 150 H D (38-126) U/L Total Protein 5.6 L (6.3-8.3) g/dL Albumin 2.2 L (3.5-5.0) g/dL Globulin 3.4 (2.2-3.9) gm/dL Albumin/Globulin Ratio 0.6 L (1.0-2.1) Laboratory Results - last 24 hr 05/10/17 05/10/17 05/10/17 05:16 06:05 06:08 WBC 4.3 L RBC 3.37 L Hgb 9.6 L Hct 26.9 L MCV 79.6 L MCH 28.6 MCHC 35.9 RDW 19.6 H Plt Count 97 L MPV 9.5 Neut % (Auto) 67.4 Lymph % (Auto) 14.2 L [place] % (Auto) 12.4 H Eos % (Auto) 5.0 H Baso % (Auto) 1.0 Neut # 2.9 Lymph # 0.6 L [place] # 0.5 Eos # 0.2 Baso # 0.0 Puncture Site L rad pCO2 44 pO2 80 HCO3 30.7 H ABG pH 7.47 H ABG Total CO2 33.4 H ABG O2 Saturation 98.4 H ABG Base Excess 7.5 H ABG Hemoglobin 9.2 L ABG Carboxyhemoglobin 2.6 H POC ABG HHb (Measured) 1.5 ABG Methemoglobin 1.4 Mitesh Test Pos A-a O2 Difference 150.0 Respiratory Index 1.9 Hgb O2 Saturation 94.5 L Mechanical Rate 14 FiO2 40.0 Tidal Volume 450 PEEP 5 Sodium 126 L Potassium 3.2 L Chloride 92 L Carbon Dioxide 27 Anion Gap 10 BUN 3 L Creatinine 0.4 L Est GFR ( Amer) > 60 Est GFR (Non-Af Amer) > 60 Random Glucose 125 H Calcium 7.2 L Phosphorus 3.0 Magnesium 1.4 L Total Bilirubin 0.6 AST 51 ALT 49 Alkaline Phosphatase 150 H D Total Protein 5.6 L Albumin 2.2 L Globulin 3.4 Albumin/Globulin Ratio 0.6 L Critical Care Progress Note - Nutrition Nutrition: Nutrition Category Date Time Status NPO Diet [DIET] Diets 03/09/17 Dinner Active Attending/Attestation - Attestation I have personally seen and examined this patient.: Yes I have fully participated in the care of the patient.: Yes I have reviewed all pertinent clinical information: Yes Notes (Text): 03/14/17 16:10 Patient seen and examined in the intensive care unit. Case discussed with staff in the morning rounds. Tolerating CPAP with FiO2 of 40% Continue vancomycin for C. difficile colitis Continue antibiotics for pneumonia Continue seizure prophylaxis with Keppra twice a day. Repeat head CT shows improvement, with blood resorption, of left temporal intraparenchymal hemorrhage.
--- NOTE | 2017-03-14 11:32 | RAD ---
HISTORY: intubated COMPARISON: Comparison is made to 03/13/2017 FINDINGS: LUNGS: No evidence of new infiltrate or consolidation in the lungs. Haziness at the right lower chest is again noted. The ET tube is seen at appropriate position PLEURA: No significant pleural effusion identified, no pneumothorax apparent. CARDIOVASCULAR: Normal. OSSEOUS STRUCTURES: No significant abnormalities. VISUALIZED UPPER ABDOMEN: Normal. OTHER FINDINGS: None. IMPRESSION: No significant interval change since the previous study.
[2017-03-14] MEDS: Thiamine 100 mg/ml Inj IV SCH (13:00)
--- NOTE | 2017-03-14 15:47 | CP.PCM.PN ---
Subjective - Date & Time of Evaluation Date of Evaluation: 03/14/17 Time of Evaluation: 15:47 - Subjective Subjective: Patient seen and examined, no events overnight noted Objective - Vital Signs/Intake and Output Vital Signs (last 24 hours): Temp Pulse Resp BP Pulse Ox 98.5 F 94 H 23 130/68 100 03/14/17 08:00 03/14/17 10:12 03/14/17 10:12 03/14/17 10:12 03/14/17 10:12 Intake and Output: 03/14/17 03/14/17 06:59 18:59 Intake Total 2284.0 743.0 Output Total 4700 440 Balance -2416.0 303.0 - Medications Medications: Current Medications Albuterol/Ipratropium (Duoneb 3 Mg/0.5 Mg (3 Ml) Ud) 3 ml INH RQ6 JÚNIOR Last Admin: 03/14/17 13:27 Dose: 3 ml Levetiracetam 500 mg/ Sodium (Chloride) 105 mls @ 420 mls/hr IVPB Q12H JÚNIOR Last Admin: 03/14/17 05:15 Dose: 420 mls/hr Cefepime HCl 1 gm/ Dextrose 50 mls @ 100 mls/hr IVPB Q8H JÚNIOR Last Admin: 03/14/17 14:00 Dose: 100 mls/hr Propofol (Diprivan) 1,000 mg in 100 mls @ 2.041 mls/hr IV .Q24H PRN; Protocol; 5 MCG/KG/MIN PRN Reason: TITRATE PER MD ORDER Last Admin: 03/14/17 09:54 Dose: 60 mcg/kg/min, 24.494 mls/hr Dextrose/Sodium Chloride (Dextrose 5%/0.9% Ns 1000 Ml) 1,000 mls @ 125 mls/hr IV .Q8H JÚNIOR Last Admin: 03/14/17 15:39 Dose: 125 mls/hr Folic Acid 1 mg/ Sodium (Chloride) 100.2 mls @ 60 mls/hr IV DAILY JÚNIOR Last Admin: 03/14/17 13:00 Dose: 60 mls/hr Lorazepam (Ativan) 1 mg IVP Q4H PRN PRN Reason: Symptoms of alcohol withdrawl Last Admin: 03/11/17 16:55 Dose: 1 mg Pantoprazole Sodium (Protonix Inj) 40 mg IVP DAILY [facility] Last Admin: 03/14/17 09:48 Dose: 40 mg Thiamine HCl (Vitamin B1 Inj) 100 mg IV DAILY [facility] Last Admin: 03/14/17 13:00 Dose: 100 mg Vancomycin HCl (Vancocin (Oral Or Rectal Use)) 250 mg PO QID [facility] Last Admin: 03/14/17 15:43 Dose: 250 mg - Labs Labs: 03/14/17 06:08 03/14/17 06:05 PT 15.0 SECONDS (9.7-12.2) H 03/09/17 16:28 INR 1.3 03/09/17 16:28 APTT 36 SECONDS (21-34) H 03/09/17 16:28 - Head Exam Head Exam: NORMOCEPHALIC - ENT Exam ENT Exam: Mucous Membranes Moist - Respiratory Exam Respiratory Exam: Rhonchi - Cardiovascular Exam Cardiovascular Exam: REGULAR RHYTHM, +S1, +S2 - GI/Abdominal Exam GI & Abdominal Exam: Soft, Normal Bowel Sounds - Extremities Exam Extremities Exam: Normal Inspection Assessment and Plan - Assessment and Plan (Free Text) Assessment: Acute respiratory failure Pneumonia COPD Right mastoid fracture Subarachnoid hemorrhage Subdural hemorrhage Seizures History of alcohol abuse Continue full vent support Continue antibiotic Bronchodilators Seizure prophylaxis Thiamine and folate Rest as per ICU management DVT/GI prophylaxis
--- NOTE | 2017-03-14 18:18 | CP.PCM.PN ---
Subjective - Date & Time of Evaluation Date of Evaluation: 03/14/17 Time of Evaluation: 14:40 - Subjective Subjective: clinically same Objective - Vital Signs/Intake and Output Vital Signs (last 24 hours): Temp Pulse Resp BP Pulse Ox 98.6 F 83 15 138/75 100 03/14/17 16:00 03/14/17 17:12 03/14/17 17:12 03/14/17 17:12 03/14/17 17:12 Intake and Output: 03/14/17 03/14/17 06:59 18:59 Intake Total 2284.0 2074.5 Output Total 4700 1230 Balance -2416.0 844.5 - Medications Medications: Current Medications Albuterol/Ipratropium (Duoneb 3 Mg/0.5 Mg (3 Ml) Ud) 3 ml INH RQ6 [facility] Last Admin: 03/14/17 13:27 Dose: 3 ml Levetiracetam 500 mg/ Sodium (Chloride) 105 mls @ 420 mls/hr IVPB Q12H [facility] Last Admin: 03/14/17 05:15 Dose: 420 mls/hr Cefepime HCl 1 gm/ Dextrose 50 mls @ 100 mls/hr IVPB Q8H [facility] Last Admin: 03/14/17 14:00 Dose: 100 mls/hr Propofol (Diprivan) 1,000 mg in 100 mls @ 2.041 mls/hr IV .Q24H PRN; Protocol; 5 MCG/KG/MIN PRN Reason: TITRATE PER MD ORDER Last Admin: 03/14/17 16:58 Dose: 60 mcg/kg/min, 24.494 mls/hr Dextrose/Sodium Chloride (Dextrose 5%/0.9% Ns 1000 Ml) 1,000 mls @ 125 mls/hr IV .Q8H [facility] Last Admin: 03/14/17 15:39 Dose: 125 mls/hr Folic Acid 1 mg/ Sodium (Chloride) 100.2 mls @ 60 mls/hr IV DAILY [facility] Last Admin: 03/14/17 13:00 Dose: 60 mls/hr Magnesium Sulfate/Dextrose (Magnesium Sulfate 1 Gm/100 Ml D5w) 1 gm in 100 mls @ 100 mls/hr IVPB Q1 [facility] Stop: 03/14/17 18:59 Last Admin: 03/14/17 17:00 Dose: Not Given Lorazepam (Ativan) 1 mg IVP Q4H PRN PRN Reason: Symptoms of alcohol withdrawl Last Admin: 03/11/17 16:55 Dose: 1 mg Pantoprazole Sodium (Protonix Inj) 40 mg IVP DAILY [facility] Last Admin: 03/14/17 09:48 Dose: 40 mg Thiamine HCl (Vitamin B1 Inj) 100 mg IV DAILY [facility] Last Admin: 03/14/17 13:00 Dose: 100 mg Vancomycin HCl (Vancocin (Oral Or Rectal Use)) 250 mg PO QID [facility] Last Admin: 03/14/17 17:01 Dose: 250 mg - Labs Labs: 03/14/17 06:08 03/14/17 06:05 PT 15.0 SECONDS (9.7-12.2) H 03/09/17 16:28 INR 1.3 03/09/17 16:28 APTT 36 SECONDS (21-34) H 03/09/17 16:28 - Constitutional Appears: Well - Head Exam Head Exam: ATRAUMATIC, NORMAL INSPECTION, NORMOCEPHALIC - Eye Exam Eye Exam: EOMI, Normal appearance, PERRL Pupil Exam: NORMAL ACCOMODATION, PERRL - ENT Exam ENT Exam: Mucous Membranes Moist, Normal Exam - Neck Exam Neck Exam: Full ROM, Normal Inspection. absent: Lymphadenopathy - Respiratory Exam Respiratory Exam: Decreased Breath Sounds - Cardiovascular Exam Cardiovascular Exam: REGULAR RHYTHM, +S1, +S2 - GI/Abdominal Exam GI & Abdominal Exam: Soft, Diminished Bowel Sounds - Rectal Exam Rectal Exam: Deferred Assessment and Plan - Assessment and Plan (Free Text) Plan: Follow-up neurologist Follow-up ID Continue Keppra Continue Ativan Continue antibiotic Repeat CT shows improvement in hemorrhage Patient is on ventilator Tolerating CPAP well
[2017-03-15] MEDS: Propofol 10 mg/ml 1,000 MG/100 ML VIAL IV PRN ×6 (00:59→22:13)
[2017-03-15] MEDS: Dextrose 5%/0.9% NS 1,000 ML IV SCH ×2 (01:00→03:35)
[2017-03-15] MEDS: Albuterol-Ipratrop 3 mg / 0.5 (3 ml) UD INH SCH ×4 (01:18→19:35)
[2017-03-15 05:21] LABS: ABG ALLEN TEST POS; ABG MECHANICAL RATE 14; ARTERIAL BLOOD HGB O2 SAT 95.4 % (95.0-98.0); ATERIAL BLOOD GAS PEEP 5; CARBOXYHEMOGLOBIN 2.3 % (0.5-1.5); DRAW SITE RR; HHB 1.2 % (0.0-5.0); METHEMOGLOBIN 1.1 % (0.0-3.0)
[2017-03-15] MEDS: levETIRAcetam 500 MG in Sodium Chloride 0.9% 100 ML IVPB SCH ×2 (05:31→17:16)
[2017-03-15 06:20] LABS: EOS # 0.3 K/uL (0.0-0.7); MEAN CELL VOLUME 80.9 fL (80.0-94.0); MONO # 0.7 K/uL (0.0-0.8); NRBC % 0.1 % (0.0-2.0)
[2017-03-15 06:41] LABS: BASO % 1.2 % (0.0-2.0); EOS % 6.3 % (0.0-4.0); HEMATOCRIT 29.6 % (35.0-51.0); LYMPH # 0.8 K/uL (1.0-4.3); LYMPH % 19.2 % (20.0-40.0); MEAN CORPUSCULAR HEMOGLOBIN 24.5 pg (27.0-31.0); MEAN CORPUSCULAR HGB CONC 30.2 g/dL (33.0-37.0); MONO % 15.8 % (0.0-10.0); WHITE BLOOD COUNT 4.3 K/uL (4.8-10.8)
[2017-03-15 06:45] LABS: CHLORIDE 96 mmol/L (98-107); POTASSIUM 3.2 mmol/L (3.6-5.2); SODIUM 134 mmol/L (132-148)
[2017-03-15 06:47] LABS: ALB/GLOB RATIO 0.7 (1.0-2.1); ALKALINE PHOSPHATASE 162 U/L (38-126); ALT/SGPT 49 U/L (21-72); AST/SGOT 40 U/L (17-59); BILIRUBIN,TOTAL 0.4 mg/dL (0.2-1.3); CARBON DIOXIDE 31 mmol/L (22-30); GFR AFRICAN-AMERICAN > 60; GLUCOSE,RANDOM 146 mg/dL (75-110); TOTAL PROTEIN 6.1 g/dL (6.3-8.3)
[2017-03-15 06:48] LABS: CALCIUM 7.9 mg/dl (8.6-10.4); MAGNESIUM 1.4 mg/dL (1.6-2.3); PHOSPHOROUS 2.9 mg/dL (2.5-4.5)
[2017-03-15 06:54] LABS: BLOOD UREA NITROGEN 2 mg/dL (9-20)
--- NOTE | 2017-03-15 09:20 | CP.PCM.PN ---
Subjective - Date & Time of Evaluation Date of Evaluation: 03/15/17 Time of Evaluation: 13:00 - Subjective Subjective: clinically same Objective - Vital Signs/Intake and Output Vital Signs (last 24 hours): Temp Pulse Resp BP Pulse Ox 99.4 F 80 22 137/73 98 03/15/17 06:00 03/15/17 06:12 03/15/17 06:12 03/15/17 06:12 03/15/17 06:12 Intake and Output: 03/15/17 03/15/17 06:59 18:59 Intake Total 2554.0 Output Total 1990 Balance 564.0 - Medications Medications: Current Medications Albuterol/Ipratropium (Duoneb 3 Mg/0.5 Mg (3 Ml) Ud) 3 ml INH RQ6 [facility] Last Admin: 03/15/17 07:26 Dose: 3 ml Levetiracetam 500 mg/ Sodium (Chloride) 105 mls @ 420 mls/hr IVPB Q12H [facility] Last Admin: 03/15/17 05:31 Dose: 420 mls/hr Cefepime HCl 1 gm/ Dextrose 50 mls @ 100 mls/hr IVPB Q8H [facility] Last Admin: 03/15/17 05:29 Dose: 100 mls/hr Propofol (Diprivan) 1,000 mg in 100 mls @ 2.041 mls/hr IV .Q24H PRN; Protocol; 5 MCG/KG/MIN PRN Reason: TITRATE PER MD ORDER Last Admin: 03/15/17 05:28 Dose: 60 mcg/kg/min, 24.494 mls/hr Dextrose/Sodium Chloride (Dextrose 5%/0.9% Ns 1000 Ml) 1,000 mls @ 125 mls/hr IV .Q8H [facility] Last Admin: 03/15/17 03:35 Dose: 125 mls/hr Folic Acid 1 mg/ Sodium (Chloride) 100.2 mls @ 60 mls/hr IV DAILY [facility] Last Admin: 03/14/17 13:00 Dose: 60 mls/hr Lorazepam (Ativan) 1 mg IVP Q4H PRN PRN Reason: Symptoms of alcohol withdrawl Last Admin: 03/15/17 03:39 Dose: 1 mg Pantoprazole Sodium (Protonix Inj) 40 mg IVP DAILY [facility] Last Admin: 03/14/17 09:48 Dose: 40 mg Thiamine HCl (Vitamin B1 Inj) 100 mg IV DAILY [facility] Last Admin: 03/14/17 13:00 Dose: 100 mg Vancomycin HCl (Vancocin (Oral Or Rectal Use)) 250 mg PO QID [facility] Last Admin: 03/14/17 21:40 Dose: 250 mg - Labs Labs: 03/15/17 06:03 03/15/17 06:03 PT 15.0 SECONDS (9.7-12.2) H 03/09/17 16:28 INR 1.3 03/09/17 16:28 APTT 36 SECONDS (21-34) H 03/09/17 16:28 - Constitutional Appears: Well - Head Exam Head Exam: ATRAUMATIC, NORMAL INSPECTION, NORMOCEPHALIC - Eye Exam Eye Exam: EOMI, Normal appearance, PERRL Pupil Exam: NORMAL ACCOMODATION, PERRL - ENT Exam ENT Exam: Mucous Membranes Moist, Normal Exam - Neck Exam Neck Exam: Full ROM, Normal Inspection. absent: Lymphadenopathy - Respiratory Exam Respiratory Exam: Decreased Breath Sounds - Cardiovascular Exam Cardiovascular Exam: REGULAR RHYTHM, +S1, +S2 - GI/Abdominal Exam GI & Abdominal Exam: Soft, Diminished Bowel Sounds - Rectal Exam Rectal Exam: Deferred Assessment and Plan - Assessment and Plan (Free Text) Plan: Follow-up with neurologist Follow-up ID Continue Ativan Continue Keppra Continue antibiotic Patient is on ventilator Follow-up with labs
[2017-03-15] MEDS: Thiamine 100 mg/ml Inj IV SCH (09:35)
[2017-03-15] MEDS: Vancomycin 125 MG/5 ML SOLN (ORAL/RECTAL) PO SCH ×4 (09:36→22:12)
--- NOTE | 2017-03-15 10:59 | RAD ---
HISTORY: intubated COMPARISON: 03/14/2017 FINDINGS: LUNGS: Lines and tubes stable position. Persistent elevated right hemidiaphragm. Persistent patchy airspace opacities at the right lung base as well as the left mid to lower lung zone. PLEURA: As above. CARDIOVASCULAR: Normal. OSSEOUS STRUCTURES: No significant abnormalities. VISUALIZED UPPER ABDOMEN: Normal. OTHER FINDINGS: None. IMPRESSION: No significant interval change.
[2017-03-15] MEDS ORDERED: Potassium Chloride 20 mEq/15 ml LIQ UD PO ONE (11:45)
[2017-03-15] MEDS: Magnesium Sulfate 1 gm in D5W 1 GM/100 ML BAG IVPB SCH ×2 (12:19→13:12)
--- NOTE | 2017-03-15 17:11 | CP.CCUPN ---
<Ketan Reed - Last Filed: 03/15/17 17:04> CCU Subjective - Physician Review Subjective (Free Text): 03/15/17 17:[address] Critical Care Progress Note Dr. Yin Patient seen and examined at the bedside. No acute distress. No acute events overnight. Nursing staff reports no issues. Patient remains intubated and sedated (PRVC: 450mL TV, 40% FiO2, 14 Resp, 5 PEEP). No interval change. On rounds: The patient's potassium was repleated. In addition, librium 50mg PO q8 was initiated and the versed was DC. Critical Care Time Spent (in minutes): 60 CCU Objective - Vital Signs / Intake & Output Vital Signs (Last 4 hours): Vital Signs Temp Pulse Resp BP Pulse Ox 03/15/17 16:00 98.7 F 89 19 140/79 90 L 03/15/17 15:00 87 23 146/78 95 03/15/17 14:00 82 19 135/75 98 Intake and Output (Last 8hrs): Intake & Output 03/15/17 03/15/17 03/15/17 06:59 14:59 22:59 Intake Total 1636.0 1081.5 100.8 Output Total 1110 150 Balance 526.0 931.5 100.8 Weight 66.542 kg Intake: IV 200 200 Intake, IV Amount 1196.0 641.5 40.8 Left Forearm 1000 475 Right Hand 196.0 166.5 40.8 Tube Feeding 240 240 60 Output: Urine 1110 150 Urethral (Abreu) 1110 150 Other: # Bowel Movements 0 - Physical Exam Head: Positive for: Normocephalic, Abrasion Pupils: Positive for: PERRL Extroacular Muscles: Positive for: EOMI Mouth: Positive for: Moist Mucous Membranes Respiratory/Chest: Positive for: Good Air Exchange. Negative for: Respiratory Distress Cardiovascular: Positive for: Regular Rate and Rhythm, Normal S1, S2 Abdomen: Positive for: Normal Bowel Sounds. Negative for: Tenderness, Distention Upper Extremity: Positive for: NORMAL PULSES, Neurovascularly Intact Lower Extremity: Positive for: NORMAL PULSES, Neurovascularly Intact Neurological: Positive for: Other (Sedated) Skin: Positive for: Warm, Dry Psychiatric: Positive for: Alert - Medications Active Medications: Active Medications Generic Name Dose Route Start Last Admin Trade Name Freq PRN Reason Stop Dose Admin Albuterol/Ipratropium 3 ml 03/11/17 20:00 03/15/17 13:22 Duoneb 3 Mg/0.5 Mg (3 Ml) Ud INH 3 ml RQ6 [facility] Administration Chlordiazepoxide 50 mg 03/15/17 14:00 03/15/17 13:13 Librium PO 50 mg Q8 [facility] Administration Enoxaparin Sodium 40 mg 03/16/17 10:00 Lovenox SC DAILY [facility] Folic Acid 1 mg 03/16/17 10:00 Folic Acid PO DAILY [facility] Levetiracetam 500 mg/ Sodium 105 mls @ 420 mls/hr 03/09/17 18:15 03/15/17 05: 31 Chloride IVPB 420 mls/hr Q12H [facility] Administration Cefepime HCl 1 gm/ Dextrose 50 mls @ 100 mls/hr 03/09/17 21:00 03/15/17 12:02 IVPB 100 mls/hr Q8H [facility] Administration Propofol 1,000 mg in 100 mls @ 2.041 mls/hr 03/10/17 22:00 03/15/17 13:51 Diprivan IV 50 mcg/kg/min .Q24H PRN 20.412 mls/hr TITRATE PER MD ORDER Administration Protocol 5 MCG/KG/MIN Multivitamins 1 tab 03/16/17 10:00 Hexavitamin PO DAILY [facility] Pantoprazole Sodium 40 mg 03/10/17 13:00 03/15/17 09:35 Protonix Inj IVP 40 mg DAILY [facility] Administration Thiamine HCl 100 mg 03/16/17 10:00 Vitamin B1 Tab PO DAILY [facility] Vancomycin HCl 250 mg 03/15/17 11:00 03/15/17 12:00 Vancocin (Oral Or Rectal Use) PO 250 mg Q6H [facility] Administration - Patient Studies Lab Studies: Lab Studies 03/15/17 03/15/17 03/15/17 Range/Units 06:03 06:03 05:10 WBC 4.3 L (4.8-10.8) K/uL RBC 3.65 L (4.40-5.90) Mil/uL Hgb 8.9 L (12.0-18.0) g/dL Hct 29.6 L (35.0-51.0) % MCV 80.9 (80.0-94.0) fL MCH 24.5 L (27.0-31.0) pg MCHC 30.2 L (33.0-37.0) g/dL RDW 20.0 H (11.5-14.5) % Plt Count 115 L (130-400) K/uL MPV 9.0 (7.2-11.7) fL Neut % (Auto) 57.5 (50.0-75.0) % Lymph % (Auto) 19.2 L (20.0-40.0) % [place] % (Auto) 15.8 H (0.0-10.0) % Eos % (Auto) 6.3 H (0.0-4.0) % Baso % (Auto) 1.2 (0.0-2.0) % Neut # 2.5 (1.8-7.0) K/uL Lymph # 0.8 L (1.0-4.3) K/uL [place] # 0.7 (0.0-0.8) K/uL Eos # 0.3 (0.0-0.7) K/uL Baso # 0.0 (0.0-0.2) K/uL Puncture Site Rr pCO2 46 H (35-45) mm/Hg pO2 85 (80-100) mm/Hg HCO3 31.2 H (21-28) mmol/L ABG pH 7.46 H (7.35-7.45) ABG Total CO2 34.1 H (22-28) mmol/L ABG O2 Saturation 98.8 H (95-98) % ABG Base Excess 8.0 H (-2.0-3.0) mmol/L ABG Hemoglobin 9.6 L (11.7-17.4) g/dL ABG Carboxyhemoglobin 2.3 H (0.5-1.5) % POC ABG HHb (Measured) 1.2 (0.0-5.0) % ABG Methemoglobin 1.1 (0.0-3.0) % Mitesh Test Pos A-a O2 Difference 143.0 mm/Hg Respiratory Index 1.7 Hgb O2 Saturation 95.4 (95.0-98.0) % Mechanical Rate 14 FiO2 40.0 % Tidal Volume 450 PEEP 5 Sodium 134 (132-148) mmol/L Potassium 3.2 L (3.6-5.2) mmol/L Chloride 96 L (98-107) mmol/L Carbon Dioxide 31 H (22-30) mmol/L Anion Gap 10 (10-20) BUN 2 L (9-20) mg/dL Creatinine 0.5 L (0.8-1.5) MG/DL Est GFR ( Amer) > 60 Est GFR (Non-Af Amer) > 60 Random Glucose 146 H (75-110) mg/dL Calcium 7.9 L (8.6-10.4) mg/dl Phosphorus 2.9 (2.5-4.5) mg/dL Magnesium 1.4 L (1.6-2.3) mg/dL Total Bilirubin 0.4 (0.2-1.3) mg/dL AST 40 (17-59) U/L ALT 49 (21-72) U/L Alkaline Phosphatase 162 H (38-126) U/L Total Protein 6.1 L (6.3-8.3) g/dL Albumin 2.5 L (3.5-5.0) g/dL Globulin 3.6 (2.2-3.9) gm/dL Albumin/Globulin Ratio 0.7 L (1.0-2.1) Procalcitonin (0.19-0.49) NG/ML 03/14/17 Range/Units 12:40 WBC (4.8-10.8) K/uL RBC (4.40-5.90) Mil/uL Hgb (12.0-18.0) g/dL Hct (35.0-51.0) % MCV (80.0-94.0) fL MCH (27.0-31.0) pg MCHC (33.0-37.0) g/dL RDW (11.5-14.5) % Plt Count (130-400) K/uL MPV (7.2-11.7) fL Neut % (Auto) (50.0-75.0) % Lymph % (Auto) (20.0-40.0) % [place] % (Auto) (0.0-10.0) % Eos % (Auto) (0.0-4.0) % Baso % (Auto) (0.0-2.0) % Neut # (1.8-7.0) K/uL Lymph # (1.0-4.3) K/uL [place] # (0.0-0.8) K/uL Eos # (0.0-0.7) K/uL Baso # (0.0-0.2) K/uL Puncture Site pCO2 (35-45) mm/Hg pO2 (80-100) mm/Hg HCO3 (21-28) mmol/L ABG pH (7.35-7.45) ABG Total CO2 (22-28) mmol/L ABG O2 Saturation (95-98) % ABG Base Excess (-2.0-3.0) mmol/L ABG Hemoglobin (11.7-17.4) g/dL ABG Carboxyhemoglobin (0.5-1.5) % POC ABG HHb (Measured) (0.0-5.0) % ABG Methemoglobin (0.0-3.0) % Mitesh Test A-a O2 Difference mm/Hg Respiratory Index Hgb O2 Saturation (95.0-98.0) % Mechanical Rate FiO2 % Tidal Volume PEEP Sodium (132-148) mmol/L Potassium (3.6-5.2) mmol/L Chloride (98-107) mmol/L Carbon Dioxide (22-30) mmol/L Anion Gap (10-20) BUN (9-20) mg/dL Creatinine (0.8-1.5) MG/DL Est GFR ( Amer) Est GFR (Non-Af Amer) Random Glucose (75-110) mg/dL Calcium (8.6-10.4) mg/dl Phosphorus (2.5-4.5) mg/dL Magnesium (1.6-2.3) mg/dL Total Bilirubin (0.2-1.3) mg/dL AST (17-59) U/L ALT (21-72) U/L Alkaline Phosphatase (38-126) U/L Total Protein (6.3-8.3) g/dL Albumin (3.5-5.0) g/dL Globulin (2.2-3.9) gm/dL Albumin/Globulin Ratio (1.0-2.1) Procalcitonin 0.31 (0.19-0.49) NG/ML Laboratory Results - last 24 hr 03/14/17 03/15/17 03/15/17 12:40 05:10 06:03 WBC 4.3 L RBC 3.65 L Hgb 8.9 L Hct 29.6 L MCV 80.9 MCH 24.5 L MCHC 30.2 L RDW 20.0 H Plt Count 115 L MPV 9.0 Neut % (Auto) 57.5 Lymph % (Auto) 19.2 L [place] % (Auto) 15.8 H Eos % (Auto) 6.3 H Baso % (Auto) 1.2 Neut # 2.5 Lymph # 0.8 L [place] # 0.7 Eos # 0.3 Baso # 0.0 Puncture Site Rr pCO2 46 H pO2 85 HCO3 31.2 H ABG pH 7.46 H ABG Total CO2 34.1 H ABG O2 Saturation 98.8 H ABG Base Excess 8.0 H ABG Hemoglobin 9.6 L ABG Carboxyhemoglobin 2.3 H POC ABG HHb (Measured) 1.2 ABG Methemoglobin 1.1 Mitesh Test Pos A-a O2 Difference 143.0 Respiratory Index 1.7 Hgb O2 Saturation 95.4 Mechanical Rate 14 FiO2 40.0 Tidal Volume 450 PEEP 5 Sodium Potassium Chloride Carbon Dioxide Anion Gap BUN Creatinine Est GFR ( Amer) Est GFR (Non-Af Amer) Random Glucose Calcium Phosphorus Magnesium Total Bilirubin AST ALT Alkaline Phosphatase Total Protein Albumin Globulin Albumin/Globulin Ratio Procalcitonin 0.31 03/15/17 06:03 WBC RBC Hgb Hct MCV MCH MCHC RDW Plt Count MPV Neut % (Auto) Lymph % (Auto) [place] % (Auto) Eos % (Auto) Baso % (Auto) Neut # Lymph # [place] # Eos # Baso # Puncture Site pCO2 pO2 HCO3 ABG pH ABG Total CO2 ABG O2 Saturation ABG Base Excess ABG Hemoglobin ABG Carboxyhemoglobin POC ABG HHb (Measured) ABG Methemoglobin Mitesh Test A-a O2 Difference Respiratory Index Hgb O2 Saturation Mechanical Rate FiO2 Tidal Volume PEEP Sodium 134 Potassium 3.2 L Chloride 96 L Carbon Dioxide 31 H Anion Gap 10 BUN 2 L Creatinine 0.5 L Est GFR ( Amer) > 60 Est GFR (Non-Af Amer) > 60 Random Glucose 146 H Calcium 7.9 L Phosphorus 2.9 Magnesium 1.4 L Total Bilirubin 0.4 AST 40 ALT 49 Alkaline Phosphatase 162 H Total Protein 6.1 L Albumin 2.5 L Globulin 3.6 Albumin/Globulin Ratio 0.7 L Procalcitonin Review of Systems - Review of Systems Systems not reviewed;Unavailable: Intubated Critical Care Progress Note - Vent Settings MODE:: PRVC TIDAL VOLUME:: 450 RESP RATE:: 14 FIO2:: 40 PEEP:: 5 - Nutrition Nutrition: Nutrition Category Date Time Status NPO Diet [DIET] Diets 03/09/17 Dinner Active Assessment/Plan (1) Respiratory failure with hypoxia and hypercapnia Current Visit: No Status: Acute Priority: High Comment: resolved - s/p chest tube removal 02/03 surg: Dr. De Souza - on case f/u repeat CXR in AM (2) Pneumonia Current Visit: Yes Status: Acute (3) Seizure Current Visit: Yes Status: Resolved (4) Alcohol abuse Current Visit: Yes Status: Chronic Priority: Low - Assessment and Plan (Free Text) Assessment: This is a 51 yo M with PMH of Etoh abuse admitted with R mastoid fracture, small subarachnoid and subdural hemorrhage, complicated by seizure secondary to Etoh withdrawal vs brain hemorrhage. Pt now being treated for pneumonia, intubated and sedated due to severe agitation. Plan: Neuro: Intubated and Sedated (propofol) Keppra 500mg q12 IV Cardiovascular: Normotensive Hemodynamically stale Cardiac Stable Pulmonary: Acute respiratory failure, patient was intubated (03/10) to protect his airway during severe EtOH withdrawal symptoms. On PRVC. CT angiogram negative for PE. Being treated for pneumonia with CXR showing a confluent opacity at the right lung base. On cefepime and vanco (for c. diff) Gastrointestinal: Nothing by mouth EtOH cirrhosis Tube feedings, Isosource at 30. Hematology: hemodynamically stable chronic anemia Endocrine: No acute issues Renal: No acute issues Musculoskeletal: No ulcers notes Genitourinary: No issues Infectious Disease: Cefepime 1g IV q8 Vancomycin 250mg IV q6 Psych: Anxiety Xanax .25mg PO daily GI Prophylaxis: Protonix 40mg IV daily DVT Prophylaxis: Lovenox 40mg SC Daily Case discussed with Dr. Humphrey Reed PGY1 - Date & Time Date: 03/15/17 Time: 17:12 <Skyla Nagel - Last Filed: 03/15/17 18:54> CCU Objective - Vital Signs / Intake & Output Vital Signs (Last 4 hours): Vital Signs Temp Pulse Resp BP Pulse Ox 03/15/17 18:00 86 19 119/68 97 03/15/17 17:00 81 21 117/86 96 03/15/17 16:00 98.7 F 89 19 140/79 90 L 03/15/17 15:00 87 23 146/78 95 Intake and Output (Last 8hrs): Intake & Output 03/15/17 03/15/17 03/15/17 06:59 14:59 22:59 Intake Total 1636.0 1081.5 401.6 Output Total 1110 150 Balance 526.0 931.5 401.6 Weight 146 lb 11.2 oz Intake: IV 200 200 100 Intake, IV Amount 1196.0 641.5 81.6 Left Forearm 1000 475 Right Hand 196.0 166.5 81.6 Tube Feeding 240 240 120 Albumin 100 Output: Urine 1110 150 Urethral (Abreu) 1110 150 Other: # Bowel Movements 0 - Medications Active Medications: Active Medications Generic Name Dose Route Start Last Admin Trade Name Freq PRN Reason Stop Dose Admin Albuterol/Ipratropium 3 ml 03/11/17 20:00 03/15/17 13:22 Duoneb 3 Mg/0.5 Mg (3 Ml) Ud INH 3 ml RQ6 [facility] Administration Chlordiazepoxide 50 mg 03/15/17 14:00 03/15/17 13:13 Librium PO 50 mg Q8 [facility] Administration Enoxaparin Sodium 40 mg 03/16/17 10:00 Lovenox SC DAILY [facility] Folic Acid 1 mg 03/16/17 10:00 Folic Acid PO DAILY [facility] Levetiracetam 500 mg/ Sodium 105 mls @ 420 mls/hr 03/09/17 18:15 03/15/17 17: 16 Chloride IVPB 420 mls/hr Q12H [facility] Administration Cefepime HCl 1 gm/ Dextrose 50 mls @ 100 mls/hr 03/09/17 21:00 03/15/17 12:02 IVPB 100 mls/hr Q8H [facility] Administration Propofol 1,000 mg in 100 mls @ 2.041 mls/hr 03/10/17 22:00 03/15/17 17:07 Diprivan IV 50 mcg/kg/min .Q24H PRN 20.412 mls/hr TITRATE PER MD ORDER Administration Protocol 5 MCG/KG/MIN Multivitamins 1 tab 03/16/17 10:00 Hexavitamin PO DAILY [facility] Pantoprazole Sodium 40 mg 03/10/17 13:00 03/15/17 09:35 Protonix Inj IVP 40 mg DAILY [facility] Administration Thiamine HCl 100 mg 03/16/17 10:00 Vitamin B1 Tab PO DAILY [facility] Vancomycin HCl 250 mg 03/15/17 11:00 03/15/17 17:18 Vancocin (Oral Or Rectal Use) PO 250 mg Q6H [facility] Administration - Patient Studies Lab Studies: Lab Studies 03/15/17 03/15/17 03/15/17 Range/Units 06:03 06:03 05:10 WBC 4.3 L (4.8-10.8) K/uL RBC 3.65 L (4.40-5.90) Mil/uL Hgb 8.9 L (12.0-18.0) g/dL Hct 29.6 L (35.0-51.0) % MCV 80.9 (80.0-94.0) fL MCH 24.5 L (27.0-31.0) pg MCHC 30.2 L (33.0-37.0) g/dL RDW 20.0 H (11.5-14.5) % Plt Count 115 L (130-400) K/uL MPV 9.0 (7.2-11.7) fL Neut % (Auto) 57.5 (50.0-75.0) % Lymph % (Auto) 19.2 L (20.0-40.0) % [place] % (Auto) 15.8 H (0.0-10.0) % Eos % (Auto) 6.3 H (0.0-4.0) % Baso % (Auto) 1.2 (0.0-2.0) % Neut # 2.5 (1.8-7.0) K/uL Lymph # 0.8 L (1.0-4.3) K/uL [place] # 0.7 (0.0-0.8) K/uL Eos # 0.3 (0.0-0.7) K/uL Baso # 0.0 (0.0-0.2) K/uL Puncture Site Rr pCO2 46 H (35-45) mm/Hg pO2 85 (80-100) mm/Hg HCO3 31.2 H (21-28) mmol/L ABG pH 7.46 H (7.35-7.45) ABG Total CO2 34.1 H (22-28) mmol/L ABG O2 Saturation 98.8 H (95-98) % ABG Base Excess 8.0 H (-2.0-3.0) mmol/L ABG Hemoglobin 9.6 L (11.7-17.4) g/dL ABG Carboxyhemoglobin 2.3 H (0.5-1.5) % POC ABG HHb (Measured) 1.2 (0.0-5.0) % ABG Methemoglobin 1.1 (0.0-3.0) % Mitesh Test Pos A-a O2 Difference 143.0 mm/Hg Respiratory Index 1.7 Hgb O2 Saturation 95.4 (95.0-98.0) % Mechanical Rate 14 FiO2 40.0 % Tidal Volume 450 PEEP 5 Sodium 134 (132-148) mmol/L Potassium 3.2 L (3.6-5.2) mmol/L Chloride 96 L (98-107) mmol/L Carbon Dioxide 31 H (22-30) mmol/L Anion Gap 10 (10-20) BUN 2 L (9-20) mg/dL Creatinine 0.5 L (0.8-1.5) MG/DL Est GFR ( Amer) > 60 Est GFR (Non-Af Amer) > 60 Random Glucose 146 H (75-110) mg/dL Calcium 7.9 L (8.6-10.4) mg/dl Phosphorus 2.9 (2.5-4.5) mg/dL Magnesium 1.4 L (1.6-2.3) mg/dL Total Bilirubin 0.4 (0.2-1.3) mg/dL AST 40 (17-59) U/L ALT 49 (21-72) U/L Alkaline Phosphatase 162 H (38-126) U/L Total Protein 6.1 L (6.3-8.3) g/dL Albumin 2.5 L (3.5-5.0) g/dL Globulin 3.6 (2.2-3.9) gm/dL Albumin/Globulin Ratio 0.7 L (1.0-2.1) Laboratory Results - last 24 hr 03/15/17 03/15/17 03/15/17 05:10 06:03 06:03 WBC 4.3 L RBC 3.65 L Hgb 8.9 L Hct 29.6 L MCV 80.9 MCH 24.5 L MCHC 30.2 L RDW 20.0 H Plt Count 115 L MPV 9.0 Neut % (Auto) 57.5 Lymph % (Auto) 19.2 L [place] % (Auto) 15.8 H Eos % (Auto) 6.3 H Baso % (Auto) 1.2 Neut # 2.5 Lymph # 0.8 L [place] # 0.7 Eos # 0.3 Baso # 0.0 Puncture Site Rr pCO2 46 H pO2 85 HCO3 31.2 H ABG pH 7.46 H ABG Total CO2 34.1 H ABG O2 Saturation 98.8 H ABG Base Excess 8.0 H ABG Hemoglobin 9.6 L ABG Carboxyhemoglobin 2.3 H POC ABG HHb (Measured) 1.2 ABG Methemoglobin 1.1 Mitesh Test Pos A-a O2 Difference 143.0 Respiratory Index 1.7 Hgb O2 Saturation 95.4 Mechanical Rate 14 FiO2 40.0 Tidal Volume 450 PEEP 5 Sodium 134 Potassium 3.2 L Chloride 96 L Carbon Dioxide 31 H Anion Gap 10 BUN 2 L Creatinine 0.5 L Est GFR ( Amer) > 60 Est GFR (Non-Af Amer) > 60 Random Glucose 146 H Calcium 7.9 L Phosphorus 2.9 Magnesium 1.4 L Total Bilirubin 0.4 AST 40 ALT 49 Alkaline Phosphatase 162 H Total Protein 6.1 L Albumin 2.5 L Globulin 3.6 Albumin/Globulin Ratio 0.7 L Critical Care Progress Note - Nutrition Nutrition: Nutrition Category Date Time Status NPO Diet [DIET] Diets 03/09/17 Dinner Active Attending/Attestation - Attestation I have personally seen and examined this patient.: Yes I have fully participated in the care of the patient.: Yes I have reviewed all pertinent clinical information: Yes Notes (Text): 03/15/17 18:49 Patient seen and examined in the ICU, stable. Right lower lobe pneumonia iwth no luis vetilator requirement. C. diff diagnosed on 03/12 with vancomycin po q6h. 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
--- NOTE | 2017-03-15 20:14 | CP.PCM.PN ---
Subjective - Date & Time of Evaluation Date of Evaluation: 03/15/17 Time of Evaluation: 20:10 - Subjective Subjective: Patient seen and examined On vent support Objective - Vital Signs/Intake and Output Vital Signs (last 24 hours): Temp Pulse Resp BP Pulse Ox 98.7 F 77 21 123/78 98 03/15/17 16:00 03/15/17 19:00 03/15/17 19:00 03/15/17 19:00 03/15/17 19:00 Intake and Output: 03/15/17 03/16/17 18:59 06:59 Intake Total 1483.1 50.4 Output Total 1380 125 Balance 103.1 -74.6 - Medications Medications: Current Medications Albuterol/Ipratropium (Duoneb 3 Mg/0.5 Mg (3 Ml) Ud) 3 ml INH RQ6 [facility] Last Admin: 03/15/17 19:35 Dose: 3 ml Chlordiazepoxide (Librium) 50 mg PO Q8 [facility] Last Admin: 03/15/17 13:13 Dose: 50 mg Enoxaparin Sodium (Lovenox) 40 mg SC DAILY [facility] Folic Acid (Folic Acid) 1 mg PO DAILY [facility] Levetiracetam 500 mg/ Sodium (Chloride) 105 mls @ 420 mls/hr IVPB Q12H [facility] Last Admin: 03/15/17 17:16 Dose: 420 mls/hr Cefepime HCl 1 gm/ Dextrose 50 mls @ 100 mls/hr IVPB Q8H [facility] Last Admin: 03/15/17 12:02 Dose: 100 mls/hr Propofol (Diprivan) 1,000 mg in 100 mls @ 2.041 mls/hr IV .Q24H PRN; Protocol; 5 MCG/KG/MIN PRN Reason: TITRATE PER MD ORDER Last Admin: 03/15/17 17:07 Dose: 50 mcg/kg/min, 20.412 mls/hr Multivitamins (Hexavitamin) 1 tab PO DAILY [facility] Pantoprazole Sodium (Protonix Inj) 40 mg IVP DAILY [facility] Last Admin: 03/15/17 09:35 Dose: 40 mg Thiamine HCl (Vitamin B1 Tab) 100 mg PO DAILY [facility] Vancomycin HCl (Vancocin (Oral Or Rectal Use)) 250 mg PO Q6H [facility] Last Admin: 03/15/17 17:18 Dose: 250 mg - Labs Labs: 03/15/17 06:03 03/15/17 06:03 PT 15.0 SECONDS (9.7-12.2) H 03/09/17 16:28 INR 1.3 03/09/17 16:28 APTT 36 SECONDS (21-34) H 03/09/17 16:28 - Head Exam Head Exam: NORMAL INSPECTION - Eye Exam Eye Exam: Normal appearance - ENT Exam ENT Exam: Mucous Membranes Moist - Respiratory Exam Respiratory Exam: Rhonchi - Cardiovascular Exam Cardiovascular Exam: REGULAR RHYTHM - GI/Abdominal Exam GI & Abdominal Exam: Soft, Normal Bowel Sounds - Extremities Exam Extremities Exam: Normal Inspection - Skin Skin Exam: Normal Color Assessment and Plan - Assessment and Plan (Free Text) Assessment: Acute respiratory failure Pneumonia COPD Right mastoid fracture Subarachnoid hemorrhage Subdural hemorrhage Seizures History of alcohol abuse Continue full vent support Continue antibiotic Bronchodilators Seizure prophylaxis Thiamine and folate Rest as per ICU management DVT/GI prophylaxis
[2017-03-16] MEDS: Albuterol-Ipratrop 3 mg / 0.5 (3 ml) UD INH SCH ×4 (01:11→20:38)
[2017-03-16] MEDS: Propofol 10 mg/ml 1,000 MG/100 ML VIAL IV PRN ×3 (03:03→21:32)
[2017-03-16] MEDS: Vancomycin 125 MG/5 ML SOLN (ORAL/RECTAL) PO SCH ×4 (04:32→22:42)
[2017-03-16] MEDS: levETIRAcetam 500 MG in Sodium Chloride 0.9% 100 ML IVPB SCH ×2 (05:24→17:17)
[2017-03-16 06:09] LABS: BASO # 0.1 K/uL (0.0-0.2); BASO % 1.4 % (0.0-2.0); EOS # 0.3 K/uL (0.0-0.7); EOS % 7.4 % (0.0-4.0); HEMATOCRIT 29.1 % (35.0-51.0); LYMPH % 23.1 % (20.0-40.0); MEAN CELL VOLUME 80.3 fL (80.0-94.0); MEAN CORPUSCULAR HEMOGLOBIN 24.7 pg (27.0-31.0); MEAN CORPUSCULAR HGB CONC 30.8 g/dL (33.0-37.0); MEAN PLATELET VOLUME 8.7 fL (7.2-11.7); MONO # 0.6 K/uL (0.0-0.8); NRBC % 0.2 % (0.0-2.0); RED CELL DISTRIBUTION WIDTH 20.1 % (11.5-14.5); WHITE BLOOD COUNT 4.4 K/uL (4.8-10.8)
[2017-03-16 06:18] LABS: INR 1.1
[2017-03-16 06:22] LABS: CHLORIDE 92 mmol/L (98-107); SODIUM 131 mmol/L (132-148)
[2017-03-16 06:23] LABS: POTASSIUM 3.8 mmol/L (3.6-5.2)
[2017-03-16 06:24] LABS: GFR AFRICAN-AMERICAN > 60
[2017-03-16 06:25] LABS: ALB/GLOB RATIO 0.8 (1.0-2.1); ALKALINE PHOSPHATASE 164 U/L (38-126); AST/SGOT 40 U/L (17-59); BILIRUBIN,TOTAL 0.8 mg/dL (0.2-1.3); BLOOD UREA NITROGEN 6 mg/dL (9-20); GLUCOSE,RANDOM 153 mg/dL (75-110); PHOSPHOROUS 3.7 mg/dL (2.5-4.5); TOTAL PROTEIN 6.3 g/dL (6.3-8.3)
[2017-03-16 06:26] LABS: CALCIUM 7.9 mg/dl (8.6-10.4); MAGNESIUM 1.3 mg/dL (1.6-2.3)
[2017-03-16 06:31] LABS: ALT/SGPT 37 U/L (21-72); CARBON DIOXIDE 32 mmol/L (22-30)
--- NOTE | 2017-03-16 06:34 | CP.CCUPN ---
<Gonzalo Lund - Last Filed: 03/16/17 10:45> CCU Subjective - Physician Review Subjective (Free Text): 03/16/17 06:24 Pt seen and examined at bedside. Nursing reports no acute events overnight. He remains intubated and sedated, but will attempt weaning from MV. Critical Care Time Spent (in minutes): 40 CCU Objective - Vital Signs / Intake & Output Vital Signs (Last 4 hours): Vital Signs Temp Pulse Resp BP Pulse Ox 03/16/17 06:00 82 21 128/77 96 03/16/17 05:00 80 17 150/91 H 95 03/16/17 04:00 98.8 F 81 18 138/77 96 03/16/17 03:00 91 H 15 133/74 98 Intake and Output (Last 8hrs): Intake & Output 03/15/17 03/15/17 03/16/17 14:59 22:59 06:59 Intake Total 1081.5 753.2 653.2 Output Total 940 895 610 Balance 141.5 -141.8 43.2 Weight 145 lb 8 oz Intake: IV 200 200 100 Intake, IV Amount 641.5 213.2 313.2 Left Forearm 475 50 150 Right Hand 166.5 163.2 163.2 Tube Feeding 240 240 240 Albumin 100 Output: Urine 940 895 610 Urethral (Abreu) 940 895 610 - Physical Exam Head: Positive for: Normocephalic, Abrasion Pupils: Positive for: PERRL Extroacular Muscles: Positive for: EOMI Mouth: Positive for: Moist Mucous Membranes Respiratory/Chest: Positive for: Good Air Exchange. Negative for: Respiratory Distress Cardiovascular: Positive for: Regular Rate and Rhythm, Normal S1, S2 Abdomen: Positive for: Normal Bowel Sounds. Negative for: Tenderness, Distention Upper Extremity: Positive for: NORMAL PULSES, Neurovascularly Intact Lower Extremity: Positive for: NORMAL PULSES, Neurovascularly Intact Neurological: Positive for: Other (Sedated) Skin: Positive for: Warm, Dry Psychiatric: Positive for: Alert. Negative for: Oriented x 3, Normal Insight - Medications Active Medications: Active Medications Generic Name Dose Route Start Last Admin Trade Name Freq PRN Reason Stop Dose Admin Albuterol/Ipratropium 3 ml 03/11/17 20:00 03/16/17 01:11 Duoneb 3 Mg/0.5 Mg (3 Ml) Ud INH 3 ml RQ6 [facility] Administration Chlordiazepoxide 50 mg 03/15/17 14:00 03/16/17 05:29 Librium PO 50 mg Q8 [facility] Administration Enoxaparin Sodium 40 mg 03/16/17 10:00 Lovenox SC DAILY [facility] Folic Acid 1 mg 03/16/17 10:00 Folic Acid PO DAILY [facility] Levetiracetam 500 mg/ Sodium 105 mls @ 420 mls/hr 03/09/17 18:15 03/16/17 05: 24 Chloride IVPB 420 mls/hr Q12H [facility] Administration Cefepime HCl 1 gm/ Dextrose 50 mls @ 100 mls/hr 03/09/17 21:00 03/16/17 04:24 IVPB 100 mls/hr Q8H [facility] Administration Propofol 1,000 mg in 100 mls @ 2.041 mls/hr 03/10/17 22:00 03/16/17 03:03 Diprivan IV 50 mcg/kg/min .Q24H PRN 20.412 mls/hr TITRATE PER MD ORDER Administration Protocol 5 MCG/KG/MIN Multivitamins 1 tab 03/16/17 10:00 Hexavitamin PO DAILY [facility] Pantoprazole Sodium 40 mg 03/10/17 13:00 03/15/17 09:35 Protonix Inj IVP 40 mg DAILY [facility] Administration Thiamine HCl 100 mg 03/16/17 10:00 Vitamin B1 Tab PO DAILY [facility] Vancomycin HCl 250 mg 03/15/17 11:00 03/16/17 04:32 Vancocin (Oral Or Rectal Use) PO 250 mg Q6H [facility] Administration - Patient Studies Lab Studies: Lab Studies 03/16/17 03/15/17 03/15/17 Range/Units 06:02 06:03 06:03 WBC 4.4 L 4.3 L (4.8-10.8) K/uL RBC 3.63 L 3.65 L (4.40-5.90) Mil/uL Hgb 9.0 L 8.9 L (12.0-18.0) g/dL Hct 29.1 L 29.6 L (35.0-51.0) % MCV 80.3 80.9 (80.0-94.0) fL MCH 24.7 L 24.5 L (27.0-31.0) pg MCHC 30.8 L 30.2 L (33.0-37.0) g/dL RDW 20.1 H 20.0 H (11.5-14.5) % Plt Count 158 115 L (130-400) K/uL MPV 8.7 9.0 (7.2-11.7) fL Neut % (Auto) 54.1 57.5 (50.0-75.0) % Lymph % (Auto) 23.1 19.2 L (20.0-40.0) % Mchenry % (Auto) 14.0 H 15.8 H (0.0-10.0) % Eos % (Auto) 7.4 H 6.3 H (0.0-4.0) % Baso % (Auto) 1.4 1.2 (0.0-2.0) % Neut # 2.4 2.5 (1.8-7.0) K/uL Lymph # 1.0 0.8 L (1.0-4.3) K/uL Mchenry # 0.6 0.7 (0.0-0.8) K/uL Eos # 0.3 0.3 (0.0-0.7) K/uL Baso # 0.1 0.0 (0.0-0.2) K/uL Sodium 134 (132-148) mmol/L Potassium 3.2 L (3.6-5.2) mmol/L Chloride 96 L (98-107) mmol/L Carbon Dioxide 31 H (22-30) mmol/L Anion Gap 10 (10-20) BUN 2 L (9-20) mg/dL Creatinine 0.5 L (0.8-1.5) MG/DL Est GFR ( Amer) > 60 Est GFR (Non-Af Amer) > 60 Random Glucose 146 H (75-110) mg/dL Calcium 7.9 L (8.6-10.4) mg/dl Phosphorus 2.9 (2.5-4.5) mg/dL Magnesium 1.4 L (1.6-2.3) mg/dL Total Bilirubin 0.4 (0.2-1.3) mg/dL AST 40 (17-59) U/L ALT 49 (21-72) U/L Alkaline Phosphatase 162 H (38-126) U/L Total Protein 6.1 L (6.3-8.3) g/dL Albumin 2.5 L (3.5-5.0) g/dL Globulin 3.6 (2.2-3.9) gm/dL Albumin/Globulin Ratio 0.7 L (1.0-2.1) Laboratory Results - last 24 hr 03/15/17 03/15/17 03/16/17 06:03 06:03 06:02 WBC 4.3 L 4.4 L RBC 3.65 L 3.63 L Hgb 8.9 L 9.0 L Hct 29.6 L 29.1 L MCV 80.9 80.3 MCH 24.5 L 24.7 L MCHC 30.2 L 30.8 L RDW 20.0 H 20.1 H Plt Count 115 L 158 MPV 9.0 8.7 Neut % (Auto) 57.5 54.1 Lymph % (Auto) 19.2 L 23.1 Mchenry % (Auto) 15.8 H 14.0 H Eos % (Auto) 6.3 H 7.4 H Baso % (Auto) 1.2 1.4 Neut # 2.5 2.4 Lymph # 0.8 L 1.0 Mchenry # 0.7 0.6 Eos # 0.3 0.3 Baso # 0.0 0.1 Sodium 134 Potassium 3.2 L Chloride 96 L Carbon Dioxide 31 H Anion Gap 10 BUN 2 L Creatinine 0.5 L Est GFR ( Amer) > 60 Est GFR (Non-Af Amer) > 60 Random Glucose 146 H Calcium 7.9 L Phosphorus 2.9 Magnesium 1.4 L Total Bilirubin 0.4 AST 40 ALT 49 Alkaline Phosphatase 162 H Total Protein 6.1 L Albumin 2.5 L Globulin 3.6 Albumin/Globulin Ratio 0.7 L Review of Systems - Review of Systems Systems not reviewed;Unavailable: Intubated Critical Care Progress Note - Nutrition Nutrition: Nutrition Category Date Time Status NPO Diet [DIET] Diets 03/09/17 Dinner Active Assessment/Plan - Assessment and Plan (Free Text) Assessment: This is a 51 yo M with PMH of Etoh abuse admitted with R mastoid fracture, small subarachnoid and subdural hemorrhage, complicated by seizure secondary to Etoh withdrawal vs brain hemorrhage. Pt now being treated for pneumonia, intubated and sedated due to severe agitation. Plan: Neuro: Intubated and Sedated (propofol), will attempt weaning Keppra 500mg q12 IV Alcohol W/D Librium 50mg PO Q8H - Ativan D/C Folic acid/thiamine/MV PO Cardiovascular: Normotensive Hemodynamically stale Cardiac Stable Pulmonary: Acute respiratory failure, patient was intubated (03/10) to protect his airway during severe EtOH withdrawal symptoms. On PRVC. CT angiogram negative for PE. Being treated for pneumonia with CXR showing a confluent opacity at the right lung base. On cefepime and vanco (for c. diff) Gastrointestinal: Nothing by mouth EtOH cirrhosis Tube feedings, Isosource at 30. C diff positive Vancomycin 250mg PO q6 (start 03/15) Hematology: hemodynamically stable chronic anemia - H/H 08/03.1, stable from yesterday Endocrine: No acute issues Renal: Mild hyponatremia - 131 on AM labs - Monitor Musculoskeletal: No ulcers notes Genitourinary: No issues Infectious Disease: Cefepime 1g IV q8 (start 03/09) Vancomycin 250mg PO q6 (start 03/15) Psych: Anxiety Xanax .25mg PO daily GI Prophylaxis: Protonix 40mg IV daily DVT Prophylaxis: Lovenox 40mg SC Daily <Robert Albert - Last Filed: 03/16/17 13:59> CCU Objective - Vital Signs / Intake & Output Vital Signs (Last 4 hours): Vital Signs Temp Pulse Resp BP Pulse Ox 03/16/17 13:00 86 14 128/77 96 03/16/17 12:00 98.8 F 81 12 118/69 97 03/16/17 11:00 88 12 121/77 96 03/16/17 10:00 90 14 115/67 96 Intake and Output (Last 8hrs): Intake & Output 03/15/17 03/16/17 03/16/17 22:59 06:59 14:59 Intake Total 753.2 653.2 853.6 Output Total 895 610 575 Balance -141.8 43.2 278.6 Weight 145 lb 8 oz Intake: IV 200 100 191 Intake, IV Amount 213.2 313.2 282.6 Left Forearm 50 150 250 Right Hand 163.2 163.2 32.6 Tube Feeding 240 240 180 Albumin 100 Other 200 Output: Urine 826 688 575 Urethral (Abreu) 621 511 576 - Medications Active Medications: Active Medications Generic Name Dose Route Start Last Admin Trade Name Freq PRN Reason Stop Dose Admin Albuterol/Ipratropium 3 ml 03/11/17 20:00 03/16/17 13:22 Duoneb 3 Mg/0.5 Mg (3 Ml) Ud INH 3 ml RQ6 [facility] Administration Chlordiazepoxide 50 mg 03/15/17 14:00 03/16/17 13:01 Librium PO 50 mg Q8 [facility] Administration Enoxaparin Sodium 40 mg 03/16/17 10:00 03/16/17 09:25 Lovenox SC 40 mg DAILY [facility] Administration Folic Acid 1 mg 03/16/17 10:00 03/16/17 09:25 Folic Acid PO 1 mg DAILY [facility] Administration Levetiracetam 500 mg/ Sodium 105 mls @ 420 mls/hr 03/09/17 18:15 03/16/17 05: 24 Chloride IVPB 420 mls/hr Q12H [facility] Administration Cefepime HCl 1 gm/ Dextrose 50 mls @ 100 mls/hr 03/09/17 21:00 03/16/17 12:04 IVPB 100 mls/hr Q8H [facility] Administration Propofol 1,000 mg in 100 mls @ 2.041 mls/hr 03/10/17 22:00 03/16/17 09:40 Diprivan IV 0 mcg/kg/min .Q24H PRN 0 mls/hr TITRATE PER MD ORDER Titration Protocol 5 MCG/KG/MIN Multivitamins 1 tab 03/16/17 10:00 03/16/17 09:25 Hexavitamin PO 1 tab DAILY [facility] Administration Pantoprazole Sodium 40 mg 03/10/17 13:00 03/16/17 09:25 Protonix Inj IVP 40 mg DAILY [facility] Administration Thiamine HCl 100 mg 03/16/17 10:00 03/16/17 09:25 Vitamin B1 Tab PO 100 mg DAILY [facility] Administration Vancomycin HCl 250 mg 03/15/17 11:00 03/16/17 10:37 Vancocin (Oral Or Rectal Use) PO 250 mg Q6H [facility] Administration - Patient Studies Lab Studies: Lab Studies 05/12/17 05/12/17 05/12/17 Range/Units 06:02 06:02 06:02 WBC 4.4 L (4.8-10.8) K/uL RBC 3.63 L (4.40-5.90) Mil/uL Hgb 9.0 L (12.0-18.0) g/dL Hct 29.1 L (35.0-51.0) % MCV 80.3 (80.0-94.0) fL MCH 24.7 L (27.0-31.0) pg MCHC 30.8 L (33.0-37.0) g/dL RDW 20.1 H (11.5-14.5) % Plt Count 158 (130-400) K/uL MPV 8.7 (7.2-11.7) fL Neut % (Auto) 54.1 (50.0-75.0) % Lymph % (Auto) 23.1 (20.0-40.0) % Mchenry % (Auto) 14.0 H (0.0-10.0) % Eos % (Auto) 7.4 H (0.0-4.0) % Baso % (Auto) 1.4 (0.0-2.0) % Neut # 2.4 (1.8-7.0) K/uL Lymph # 1.0 (1.0-4.3) K/uL Mchenry # 0.6 (0.0-0.8) K/uL Eos # 0.3 (0.0-0.7) K/uL Baso # 0.1 (0.0-0.2) K/uL PT 12.0 (9.7-12.2) SECONDS INR 1.1 APTT 33 (21-34) SECONDS Sodium 131 L (132-148) mmol/L Potassium 3.8 (3.6-5.2) mmol/L Chloride 92 L (98-107) mmol/L Carbon Dioxide 32 H (22-30) mmol/L Anion Gap 11 (10-20) BUN 6 L (9-20) mg/dL Creatinine 0.4 L (0.8-1.5) MG/DL Est GFR ( Amer) > 60 Est GFR (Non-Af Amer) > 60 Random Glucose 153 H (75-110) mg/dL Calcium 7.9 L (8.6-10.4) mg/dl Phosphorus 3.7 (2.5-4.5) mg/dL Magnesium 1.3 L (1.6-2.3) mg/dL Total Bilirubin 0.8 (0.2-1.3) mg/dL AST 40 (17-59) U/L ALT 37 (21-72) U/L Alkaline Phosphatase 164 H (38-126) U/L Total Protein 6.3 (6.3-8.3) g/dL Albumin 2.9 L (3.5-5.0) g/dL Globulin 3.5 (2.2-3.9) gm/dL Albumin/Globulin Ratio 0.8 L (1.0-2.1) Laboratory Results - last 24 hr 03/16/17 03/16/17 03/16/17 06:02 06:02 06:02 WBC 4.4 L RBC 3.63 L Hgb 9.0 L Hct 29.1 L MCV 80.3 MCH 24.7 L MCHC 30.8 L RDW 20.1 H Plt Count 158 MPV 8.7 Neut % (Auto) 54.1 Lymph % (Auto) 23.1 Mchenry % (Auto) 14.0 H Eos % (Auto) 7.4 H Baso % (Auto) 1.4 Neut # 2.4 Lymph # 1.0 Mchenry # 0.6 Eos # 0.3 Baso # 0.1 PT 12.0 INR 1.1 APTT 33 Sodium 131 L Potassium 3.8 Chloride 92 L Carbon Dioxide 32 H Anion Gap 11 BUN 6 L Creatinine 0.4 L Est GFR ( Amer) > 60 Est GFR (Non-Af Amer) > 60 Random Glucose 153 H Calcium 7.9 L Phosphorus 3.7 Magnesium 1.3 L Total Bilirubin 0.8 AST 40 ALT 37 Alkaline Phosphatase 164 H Total Protein 6.3 Albumin 2.9 L Globulin 3.5 Albumin/Globulin Ratio 0.8 L Critical Care Progress Note - Nutrition Nutrition: Nutrition Category Date Time Status NPO Diet [DIET] Diets 03/09/17 Dinner Active Attending/Attestation - Attestation I have personally seen and examined this patient.: Yes I have fully participated in the care of the patient.: Yes I have reviewed all pertinent clinical information: Yes Notes (Text): 03/16/17 13:58 Patient seen and examined in the intensive care unit. Case discussed with house staff in the morning rounds. Tolerating CPAP since morning but appears lethargic off sedation Continue antibiotics Continue potassium and magnesium supplements
[2017-03-16] MEDS: Magnesium Sulfate 1 gm in D5W 1 GM/100 ML BAG IVPB SCH ×2 (08:29→09:15)
--- NOTE | 2017-03-16 08:35 | RAD ---
HISTORY: ET Tube Evaluation COMPARISON: 03/15/2017 FINDINGS: LUNGS: Lines and tubes in stable position. Moderate venous congestion. Bilateral hilar prominence. Prominent consolidative changes at the right lung base with small right pleural effusion. Biapical pleural thickening with upper lobe granulomatous changes. Small nodular density in the right midlung zone may represent vessel on end versus small nodule and or granuloma. PLEURA: As above. CARDIOVASCULAR: Normal. OSSEOUS STRUCTURES: No significant abnormalities. VISUALIZED UPPER ABDOMEN: Normal. OTHER FINDINGS: None. IMPRESSION: Lines and tubes in stable position. Moderate venous congestion. Bilateral hilar prominence. Prominent consolidative changes at the right lung base with small right pleural effusion. Biapical pleural thickening with upper lobe granulomatous changes. Small nodular density in the right midlung zone may represent vessel on end versus small nodule and or granuloma.
[2017-03-16] MEDS: Enoxaparin 40 mg Syringe SC SCH (09:25)
[2017-03-16] MEDS: Multiple Vitamins Tab PO SCH (09:25)
--- NOTE | 2017-03-16 10:24 | CP.PCM.PN ---
Subjective - Date & Time of Evaluation Date of Evaluation: 03/16/17 Time of Evaluation: 13:00 - Subjective Subjective: clinically same Objective - Vital Signs/Intake and Output Vital Signs (last 24 hours): Temp Pulse Resp BP Pulse Ox 98.4 F 90 14 115/67 96 03/16/17 08:00 03/16/17 10:00 03/16/17 10:00 03/16/17 10:00 03/16/17 10:00 Intake and Output: 03/16/17 03/16/17 06:59 18:59 Intake Total 1004.8 513.6 Output Total 1065 205 Balance -60.2 308.6 - Medications Medications: Current Medications Albuterol/Ipratropium (Duoneb 3 Mg/0.5 Mg (3 Ml) Ud) 3 ml INH RQ6 [facility]S [facility] Last Admin: 03/16/17 07:42 Dose: 3 ml Chlordiazepoxide (Librium) 50 mg PO Q8 [facility] 234 [facility]S [facility] Last Admin: 03/16/17 05:29 Dose: 50 mg Enoxaparin Sodium (Lovenox) 40 mg SC DAILY [facility] 234 [facility]S [facility] Last Admin: 03/16/17 09:25 Dose: 40 mg Folic Acid (Folic Acid) 1 mg PO DAILY [facility] Last Admin: 03/16/17 09:25 Dose: 1 mg Levetiracetam 500 mg/ Sodium (Chloride) 105 mls @ 420 mls/hr IVPB Q12H [facility] 234 BEDS [facility] Last Admin: 03/16/17 05:24 Dose: 420 mls/hr Cefepime HCl 1 gm/ Dextrose 50 mls @ 100 mls/hr IVPB Q8H [facility] 234 BEDS AT [facility] Last Admin: 03/16/17 04:24 Dose: 100 mls/hr Propofol (Diprivan) 1,000 mg in 100 mls @ 2.041 mls/hr IV .Q24H PRN; Protocol; 5 MCG/KG/MIN PRN Reason: TITRATE PER MD ORDER Last Titration: 03/16/17 09:40 Dose: 0 mcg/kg/min, 0 mls/hr Multivitamins (Hexavitamin) 1 tab PO DAILY [facility]S [facility] Last Admin: 03/16/17 09:25 Dose: 1 tab Pantoprazole Sodium (Protonix Inj) 40 mg IVP DAILY [facility] 234 [facility] Last Admin: 03/16/17 09:25 Dose: 40 mg Thiamine HCl (Vitamin B1 Tab) 100 mg PO DAILY [facility] 234 [facility]S [facility] Last Admin: 03/16/17 09:25 Dose: 100 mg Vancomycin HCl (Vancocin (Oral Or Rectal Use)) 250 mg PO Q6H [facility] 234 BEDS AT [facility] Last Admin: 03/16/17 04:32 Dose: 250 mg - Labs Labs: 03/16/17 06:02 03/16/17 06:02 PT 12.0 SECONDS (9.7-12.2) 03/16/17 06:02 INR 1.1 03/16/17 06:02 APTT 33 SECONDS (21-34) 03/16/17 06:02 - Constitutional Appears: Well - Head Exam Head Exam: ATRAUMATIC, NORMAL INSPECTION, NORMOCEPHALIC - Eye Exam Eye Exam: EOMI, Normal appearance, PERRL Pupil Exam: NORMAL ACCOMODATION, PERRL - ENT Exam ENT Exam: Mucous Membranes Moist, Normal Exam - Neck Exam Neck Exam: Full ROM, Normal Inspection. absent: Lymphadenopathy - Respiratory Exam Respiratory Exam: Decreased Breath Sounds - Cardiovascular Exam Cardiovascular Exam: REGULAR RHYTHM, +S1, +S2 - GI/Abdominal Exam GI & Abdominal Exam: Soft, Diminished Bowel Sounds - Rectal Exam Rectal Exam: Deferred Assessment and Plan - Assessment and Plan (Free Text) Plan: Follow-up neurologist Follow-up ID Continue Keppra Continue Ativan Continue antibiotic Continue folic acid Continue thiamine Tolerating CPAP well Follow-up with labs
--- NOTE | 2017-03-16 13:38 | CARD ---
APPROVED REPORT EKG Measurement Heart [id number] <Conclusion> Accelerated Junctional rhythm Abnormal ECG
--- NOTE | 2017-03-16 15:21 | CP.PCM.PN ---
Subjective - Date & Time of Evaluation Date of Evaluation: 03/16/17 Time of Evaluation: 15:21 - Subjective Subjective: Patient seen and examined No events overnight Objective - Vital Signs/Intake and Output Vital Signs (last 24 hours): Temp Pulse Resp BP Pulse Ox 98.8 F 92 H 15 115/72 94 L 03/16/17 12:00 03/16/17 15:00 03/16/17 15:00 03/16/17 15:00 03/16/17 15:00 Intake and Output: 03/16/17 03/16/17 06:59 18:59 Intake Total 1004.8 913.6 Output Total 1065 780 Balance -60.2 133.6 - Medications Medications: Current Medications Albuterol/Ipratropium (Duoneb 3 Mg/0.5 Mg (3 Ml) Ud) 3 ml INH RQ6 [facility] Last Admin: 03/16/17 13:22 Dose: 3 ml Chlordiazepoxide (Librium) 50 mg PO Q8 [facility] Last Admin: 03/16/17 13:01 Dose: 50 mg Enoxaparin Sodium (Lovenox) 40 mg SC DAILY [facility] Last Admin: 03/16/17 09:25 Dose: 40 mg Folic Acid (Folic Acid) 1 mg PO DAILY [facility] Last Admin: 03/16/17 09:25 Dose: 1 mg Levetiracetam 500 mg/ Sodium (Chloride) 105 mls @ 420 mls/hr IVPB Q12H [facility] Last Admin: 03/16/17 05:24 Dose: 420 mls/hr Cefepime HCl 1 gm/ Dextrose 50 mls @ 100 mls/hr IVPB Q8H [facility] Last Admin: 03/16/17 12:04 Dose: 100 mls/hr Propofol (Diprivan) 1,000 mg in 100 mls @ 2.041 mls/hr IV .Q24H PRN; Protocol; 5 MCG/KG/MIN PRN Reason: TITRATE PER MD ORDER Last Titration: 03/16/17 09:40 Dose: 0 mcg/kg/min, 0 mls/hr Multivitamins (Hexavitamin) 1 tab PO DAILY [facility] Last Admin: 03/16/17 09:25 Dose: 1 tab Pantoprazole Sodium (Protonix Inj) 40 mg IVP DAILY [facility] Last Admin: 03/16/17 09:25 Dose: 40 mg Thiamine HCl (Vitamin B1 Tab) 100 mg PO DAILY [facility] Last Admin: 03/16/17 09:25 Dose: 100 mg Vancomycin HCl (Vancocin (Oral Or Rectal Use)) 250 mg PO Q6H [facility] Last Admin: 03/16/17 10:37 Dose: 250 mg - Labs Labs: 03/16/17 06:02 03/16/17 06:02 PT 12.0 SECONDS (9.7-12.2) 03/16/17 06:02 INR 1.1 03/16/17 06:02 APTT 33 SECONDS (21-34) 03/16/17 06:02 - Eye Exam Eye Exam: PERRL - ENT Exam ENT Exam: Mucous Membranes Moist - Respiratory Exam Respiratory Exam: Clear to Ausculation Bilateral - Cardiovascular Exam Cardiovascular Exam: REGULAR RHYTHM - GI/Abdominal Exam GI & Abdominal Exam: Soft, Normal Bowel Sounds - Extremities Exam Extremities Exam: Normal Inspection Assessment and Plan - Assessment and Plan (Free Text) Assessment: Acute respiratory failure Pneumonia COPD Right mastoid fracture Subarachnoid hemorrhage Subdural hemorrhage Seizures History of alcohol abuse Continue full vent support Continue antibiotic Neurology follow up Bronchodilators Seizure prophylaxis Thiamine and folate Rest as per ICU management DVT/GI prophylaxis
[2017-03-16 19:36] LABS: ABG ALLEN TEST POS; ARTERIAL BLOOD HGB O2 SAT 95.7 % (95.0-98.0); ATERIAL BLOOD GAS PEEP 5; CARBOXYHEMOGLOBIN 2.2 % (0.5-1.5); DRAW SITE RT RADIAL; HHB 0.9 % (0.0-5.0); METHEMOGLOBIN 1.1 % (0.0-3.0)
[2017-03-17] MEDS: Albuterol-Ipratrop 3 mg / 0.5 (3 ml) UD INH SCH ×4 (01:03→19:50)
[2017-03-17] MEDS: Propofol 10 mg/ml 1,000 MG/100 ML VIAL IV PRN ×4 (02:54→22:25)
[2017-03-17 04:30] LABS: ABG MECHANICAL RATE 14; ARTERIAL BLOOD HGB O2 SAT 94.9 % (95.0-98.0); ATERIAL BLOOD GAS PEEP 5; CARBOXYHEMOGLOBIN 2.1 % (0.5-1.5); DRAW SITE RB; HHB 1.9 % (0.0-5.0); METHEMOGLOBIN 1.1 % (0.0-3.0)
[2017-03-17] MEDS: Vancomycin 125 MG/5 ML SOLN (ORAL/RECTAL) PO SCH ×4 (05:15→22:26)
[2017-03-17] MEDS: levETIRAcetam 500 MG in Sodium Chloride 0.9% 100 ML IVPB SCH (05:16)
[2017-03-17 06:43] LABS: BASO # 0.1 K/uL (0.0-0.2); BASO % 1.2 % (0.0-2.0); EOS # 0.4 K/uL (0.0-0.7); EOS % 5.8 % (0.0-4.0); HEMATOCRIT 30.6 % (35.0-51.0); LYMPH # 1.3 K/uL (1.0-4.3); LYMPH % 19.5 % (20.0-40.0); MEAN CORPUSCULAR HGB CONC 31.2 g/dL (33.0-37.0); MEAN PLATELET VOLUME 9.3 fL (7.2-11.7); MONO # 0.8 K/uL (0.0-0.8); MONO % 11.3 % (0.0-10.0); RED CELL DISTRIBUTION WIDTH 19.8 % (11.5-14.5); WHITE BLOOD COUNT 6.7 K/uL (4.8-10.8)
[2017-03-17 07:14] LABS: CHLORIDE 89 mmol/L (98-107); POTASSIUM 3.8 mmol/L (3.6-5.2); SODIUM 129 mmol/L (132-148)
[2017-03-17 07:16] LABS: AST/SGOT 42 U/L (17-59); BILIRUBIN,TOTAL 0.4 mg/dL (0.2-1.3); CARBON DIOXIDE 34 mmol/L (22-30); GFR AFRICAN-AMERICAN > 60
[2017-03-17 07:17] LABS: ALB/GLOB RATIO 0.7 (1.0-2.1); ALKALINE PHOSPHATASE 164 U/L (38-126); ALT/SGPT 38 U/L (21-72); BLOOD UREA NITROGEN 10 mg/dL (9-20); CALCIUM 8.3 mg/dl (8.6-10.4); GLUCOSE,RANDOM 128 mg/dL (75-110); PHOSPHOROUS 4.2 mg/dL (2.5-4.5); TOTAL PROTEIN 6.8 g/dL (6.3-8.3)
[2017-03-17 07:18] LABS: MAGNESIUM 1.5 mg/dL (1.6-2.3)
--- NOTE | 2017-03-17 09:16 | RAD ---
HISTORY: INTUBATED COMPARISON: Comparison is made to 2016 FINDINGS: LUNGS: No significant interval change in the lungs noted since the previous exam. The ET tube is seen in place. PLEURA: No significant pleural effusion identified, no pneumothorax apparent. CARDIOVASCULAR: Normal. OSSEOUS STRUCTURES: No significant abnormalities. VISUALIZED UPPER ABDOMEN: Normal. OTHER FINDINGS: NG tube extending to the up to abdomen IMPRESSION: No significant interval change in the chest noted since the previous study . Appropriate position of the support devices.
[2017-03-17] MEDS: Enoxaparin 40 mg Syringe SC SCH (09:47)
[2017-03-17] MEDS: Multiple Vitamins Tab PO SCH (09:48)
[2017-03-17] MEDS ORDERED: Potassium Chloride 20 mEq/15 ml LIQ UD PO ONE (10:08)
[2017-03-17] MEDS: Magnesium Sulfate 1 gm in D5W 1 GM/100 ML BAG IVPB SCH ×2 (10:22→10:54)
[2017-03-17] MEDS: Acetylcysteine 20% Inhal Soln (4ml) INH SCH ×2 (14:02→19:50)
--- NOTE | 2017-03-17 14:49 | CP.PCM.PN ---
Subjective - Date & Time of Evaluation Date of Evaluation: 03/17/17 Time of Evaluation: 14:40 - Subjective Subjective: clinically same Objective - Vital Signs/Intake and Output Vital Signs (last 24 hours): Temp Pulse Resp BP Pulse Ox 97.9 F 94 H 23 119/78 100 03/17/17 12:00 03/17/17 14:00 03/17/17 14:00 03/17/17 14:00 03/17/17 14:00 Intake and Output: 03/17/17 03/17/17 06:59 18:59 Intake Total 653.3 728.8 Output Total 375 300 Balance 278.3 428.8 - Medications Medications: Current Medications Acetylcysteine (Acetylcysteine 20%) 4 ml INH RQ6 [facility] Last Admin: 03/17/17 14:02 Dose: 4 ml Albuterol/Ipratropium (Duoneb 3 Mg/0.5 Mg (3 Ml) Ud) 3 ml INH RQ6 [facility] Last Admin: 03/17/17 14:02 Dose: 3 ml Chlordiazepoxide (Librium) 10 mg PO Q8 [facility] Last Admin: 03/17/17 13:07 Dose: 10 mg Enoxaparin Sodium (Lovenox) 40 mg SC DAILY [facility] Last Admin: 03/17/17 09:47 Dose: 40 mg Famotidine (Pepcid) 20 mg PO DAILY [facility] Folic Acid (Folic Acid) 1 mg PO DAILY [facility] Last Admin: 03/17/17 09:47 Dose: 1 mg Cefepime HCl 1 gm/ Dextrose 50 mls @ 100 mls/hr IVPB Q8H [facility] Last Admin: 03/17/17 12:56 Dose: 100 mls/hr Propofol (Diprivan) 1,000 mg in 100 mls @ 2.041 mls/hr IV .Q24H PRN; Protocol; 5 MCG/KG/MIN PRN Reason: TITRATE PER MD ORDER Last Titration: 03/17/17 12:57 Dose: 45 mcg/kg/min, 18.371 mls/hr Levetiracetam (Keppra) 500 mg PO BID [facility] Multivitamins (Hexavitamin) 1 tab PO DAILY [facility] Last Admin: 03/17/17 09:48 Dose: 1 tab Scopolamine (Transderm-Scop) 1 patch TD Q3D [facility] Thiamine HCl (Vitamin B1 Tab) 100 mg PO DAILY [facility] Last Admin: 03/17/17 09:47 Dose: 100 mg Vancomycin HCl (Vancocin (Oral Or Rectal Use)) 250 mg PO Q6H [facility] Last Admin: 03/17/17 10:22 Dose: 250 mg - Labs Labs: 03/17/17 06:31 03/17/17 06:31 PT 12.0 SECONDS (9.7-12.2) 03/16/17 06:02 INR 1.1 03/16/17 06:02 APTT 33 SECONDS (21-34) 03/16/17 06:02 - Constitutional Appears: Well - Head Exam Head Exam: ATRAUMATIC, NORMAL INSPECTION, NORMOCEPHALIC - Eye Exam Eye Exam: EOMI, Normal appearance, PERRL Pupil Exam: NORMAL ACCOMODATION, PERRL - ENT Exam ENT Exam: Mucous Membranes Moist, Normal Exam - Neck Exam Neck Exam: Full ROM, Normal Inspection. absent: Lymphadenopathy - Respiratory Exam Respiratory Exam: Decreased Breath Sounds - Cardiovascular Exam Cardiovascular Exam: REGULAR RHYTHM, +S1, +S2 - GI/Abdominal Exam GI & Abdominal Exam: Soft, Diminished Bowel Sounds - Rectal Exam Rectal Exam: Deferred Assessment and Plan - Assessment and Plan (Free Text) Plan: Follow-up neurologist Follow-up ID Continue Keppra Continue Ativan Continue thiamine Continue folic acid Continue Protonix Follow-up with labs
--- NOTE | 2017-03-17 17:02 | CP.CCUPN ---
CCU Subjective - Physician Review Events Since Last Encounter (Free Text): 03/17/17 17:00 Patient seen and examined in am, clinically stable. Stopped sedation, follows some commands with lots of repetition, but cough is very weak, has thin secretions. ros uanable pe: bp 107/58 mmhg, hr 88 bpm, o2 92% on 30% fio2, afebrile, rr 21 follows commands with lots of repetition, tries to self extubate lungs very good bilateral air of entry, clean lungs s1, s2 rrr abdomen soft, non tender able to move all extremites legs with very little edema now a/p: aspiration penumonia: improving, chronically hypoxic as per abg's in past alcohol withdrawal: a little too obtunded, will decrease librium dose replace electrolytes Most likely will be able to extubate tomorrow if cough improves CCU Objective - Vital Signs / Intake & Output Vital Signs (Last 4 hours): Vital Signs Pulse Resp BP Pulse Ox 03/17/17 15:00 95 H 21 119/76 97 03/17/17 14:00 94 H 23 119/78 100 Intake and Output (Last 8hrs): Intake & Output 03/17/17 03/17/17 03/17/17 06:59 14:59 22:59 Intake Total 446.8 777.2 48.4 Output Total 220 350 50 Balance 226.8 427.2 -1.6 Weight 145 lb 9.6 oz Intake: IV 100 136.8 Intake, IV Amount 136.8 310.4 18.4 Right Hand 136.8 310.4 18.4 Tube Feeding 210 180 30 Other 150 Output: Urine 220 350 50 Urethral (Abreu) 220 350 50 - Physical Exam Head: Positive for: Normocephalic, Abrasion Pupils: Positive for: PERRL Extroacular Muscles: Positive for: EOMI Mouth: Positive for: Moist Mucous Membranes Respiratory/Chest: Positive for: Good Air Exchange. Negative for: Respiratory Distress Cardiovascular: Positive for: Regular Rate and Rhythm, Normal S1, S2 Abdomen: Positive for: Normal Bowel Sounds. Negative for: Tenderness, Distention Upper Extremity: Positive for: NORMAL PULSES, Neurovascularly Intact Lower Extremity: Positive for: NORMAL PULSES, Neurovascularly Intact Neurological: Positive for: Other (Sedated) Skin: Positive for: Warm, Dry Psychiatric: Positive for: Alert. Negative for: Oriented x 3, Normal Insight - Medications Active Medications: Active Medications Generic Name Dose Route Start Last Admin Trade Name Freq PRN Reason Stop Dose Admin Acetylcysteine 4 ml 03/17/17 14:00 03/17/17 14:02 Acetylcysteine 20% INH 4 ml RQ6 [facility] Administration Albuterol/Ipratropium 3 ml 03/11/17 20:00 03/17/17 14:02 Duoneb 3 Mg/0.5 Mg (3 Ml) Ud INH 3 ml RQ6 [facility] Administration Chlordiazepoxide 10 mg 03/17/17 12:07 03/17/17 13:07 Librium PO 10 mg Q8 [facility] Administration Enoxaparin Sodium 40 mg 03/16/17 10:00 03/17/17 09:47 Lovenox SC 40 mg DAILY [facility] Administration Famotidine 20 mg 03/18/17 10:00 Pepcid PO DAILY [facility] Folic Acid 1 mg 03/16/17 10:00 03/17/17 09:47 Folic Acid PO 1 mg DAILY [facility] Administration Cefepime HCl 1 gm/ Dextrose 50 mls @ 100 mls/hr 03/09/17 21:00 03/17/17 12:56 IVPB 100 mls/hr Q8H [facility] Administration Propofol 1,000 mg in 100 mls @ 2.041 mls/hr 03/10/17 22:00 03/17/17 12:57 Diprivan IV 45 mcg/kg/min .Q24H PRN 18.371 mls/hr TITRATE PER MD ORDER Titration Protocol 5 MCG/KG/MIN Levetiracetam 500 mg 03/17/17 18:00 Keppra PO BID [facility] Multivitamins 1 tab 03/16/17 10:00 03/17/17 09:48 Hexavitamin PO 1 tab DAILY [facility] Administration Scopolamine 1 patch 03/17/17 14:00 03/17/17 14:59 Transderm-Scop TD 1 patch Q3D [facility] Administration Thiamine HCl 100 mg 03/16/17 10:00 03/17/17 09:47 Vitamin B1 Tab PO 100 mg DAILY [facility] Administration Vancomycin HCl 250 mg 03/15/17 11:00 03/17/17 10:22 Vancocin (Oral Or Rectal Use) PO 250 mg Q6H [facility] Administration - Patient Studies Lab Studies: Lab Studies 03/17/17 03/17/1717 Range/Units 06:31 06:31 04:20 WBC 6.7 D (4.8-10.8) K/uL RBC 3.82 L (4.40-5.90) Mil/uL Hgb 9.5 L (12.0-18.0) g/dL Hct 30.6 L (35.0-51.0) % MCV 80.0 (80.0-94.0) fL MCH 25.0 L (27.0-31.0) pg MCHC 31.2 L (33.0-37.0) g/dL RDW 19.8 H (11.5-14.5) % Plt Count 204 (130-400) K/uL MPV 9.3 (7.2-11.7) fL Neut % (Auto) 62.2 (50.0-75.0) % Lymph % (Auto) 19.5 L (20.0-40.0) % [place] % (Auto) 11.3 H (0.0-10.0) % Eos % (Auto) 5.8 H (0.0-4.0) % Baso % (Auto) 1.2 (0.0-2.0) % Neut # 4.2 (1.8-7.0) K/uL Lymph # 1.3 (1.0-4.3) K/uL [place] # 0.8 (0.0-0.8) K/uL Eos # 0.4 (0.0-0.7) K/uL Baso # 0.1 (0.0-0.2) K/uL Puncture Site Rb pCO2 47 H (35-45) mm/Hg pO2 86 (80-100) mm/Hg HCO3 31.6 H (21-28) mmol/L ABG pH 7.46 H (7.35-7.45) ABG Total CO2 34.8 H (22-28) mmol/L ABG O2 Saturation 98.0 (95-98) % ABG Base Excess 8.6 H (-2.0-3.0) mmol/L ABG Hemoglobin 8.9 L (11.7-17.4) g/dL ABG Carboxyhemoglobin 2.1 H (0.5-1.5) % POC ABG HHb (Measured) 1.9 (0.0-5.0) % ABG Methemoglobin 1.1 (0.0-3.0) % Mitesh Test Na A-a O2 Difference 140.0 mm/Hg Respiratory Index 1.6 Hgb O2 Saturation 94.9 L (95.0-98.0) % Mechanical Rate 14 FiO2 40.0 % Tidal Volume 450 PEEP 5 Crit Value Called To Crit Value Called By Crit Value Read Back Blood Gas Notified Time Sodium 129 L (132-148) mmol/L Potassium 3.8 (3.6-5.2) mmol/L Chloride 89 L (98-107) mmol/L Carbon Dioxide 34 H (22-30) mmol/L Anion Gap 10 (10-20) BUN 10 (9-20) mg/dL Creatinine 0.5 L (0.8-1.5) MG/DL Est GFR ( Amer) > 60 Est GFR (Non-Af Amer) > 60 Random Glucose 128 H (75-110) mg/dL Calcium 8.3 L (8.6-10.4) mg/dl Phosphorus 4.2 (2.5-4.5) mg/dL Magnesium 1.5 L (1.6-2.3) mg/dL Total Bilirubin 0.4 (0.2-1.3) mg/dL AST 42 (17-59) U/L ALT 38 (21-72) U/L Alkaline Phosphatase 164 H (38-126) U/L Total Protein 6.8 (6.3-8.3) g/dL Albumin 2.8 L (3.5-5.0) g/dL Globulin 3.9 (2.2-3.9) gm/dL Albumin/Globulin Ratio 0.7 L (1.0-2.1) 03/16/17 Range/Units 05:41 WBC (4.8-10.8) K/uL RBC (4.40-5.90) Mil/uL Hgb (12.0-18.0) g/dL Hct (35.0-51.0) % MCV (80.0-94.0) fL MCH (27.0-31.0) pg MCHC (33.0-37.0) g/dL RDW (11.5-14.5) % Plt Count (130-400) K/uL MPV (7.2-11.7) fL Neut % (Auto) (50.0-75.0) % Lymph % (Auto) (20.0-40.0) % [place] % (Auto) (0.0-10.0) % Eos % (Auto) (0.0-4.0) % Baso % (Auto) (0.0-2.0) % Neut # (1.8-7.0) K/uL Lymph # (1.0-4.3) K/uL [place] # (0.0-0.8) K/uL Eos # (0.0-0.7) K/uL Baso # (0.0-0.2) K/uL Puncture Site Rt radial pCO2 50 H (35-45) mm/Hg pO2 98 (80-100) mm/Hg HCO3 31.7 H (21-28) mmol/L ABG pH 7.44 (7.35-7.45) ABG Total CO2 35.5 H (22-28) mmol/L ABG O2 Saturation 99.1 H (95-98) % ABG Base Excess 8.7 H (-2.0-3.0) mmol/L ABG Hemoglobin 9.5 L (11.7-17.4) g/dL ABG Carboxyhemoglobin 2.2 H (0.5-1.5) % POC ABG HHb (Measured) 0.9 (0.0-5.0) % ABG Methemoglobin 1.1 (0.0-3.0) % Mitesh Test Pos A-a O2 Difference 125.0 mm/Hg Respiratory Index 1.3 Hgb O2 Saturation 95.7 (95.0-98.0) % Mechanical Rate FiO2 40.0 % Tidal Volume 450 PEEP 5 Crit Value Called To Wero hatch md Crit Value Called By R alert Crit Value Read Back Y Blood Gas Notified Time 630 Sodium (132-148) mmol/L Potassium (3.6-5.2) mmol/L Chloride (98-107) mmol/L Carbon Dioxide (22-30) mmol/L Anion Gap (10-20) BUN (9-20) mg/dL Creatinine (0.8-1.5) MG/DL Est GFR ( Amer) Est GFR (Non-Af Amer) Random Glucose (75-110) mg/dL Calcium (8.6-10.4) mg/dl Phosphorus (2.5-4.5) mg/dL Magnesium (1.6-2.3) mg/dL Total Bilirubin (0.2-1.3) mg/dL AST (17-59) U/L ALT (21-72) U/L Alkaline Phosphatase (38-126) U/L Total Protein (6.3-8.3) g/dL Albumin (3.5-5.0) g/dL Globulin (2.2-3.9) gm/dL Albumin/Globulin Ratio (1.0-2.1) Laboratory Results - last 24 hr 03/16/17 03/17/17 03/17/17 05:41 04:20 06:31 WBC 6.7 D RBC 3.82 L Hgb 9.5 L Hct 30.6 L MCV 80.0 MCH 25.0 L MCHC 31.2 L RDW 19.8 H Plt Count 204 MPV 9.3 Neut % (Auto) 62.2 Lymph % (Auto) 19.5 L [place] % (Auto) 11.3 H Eos % (Auto) 5.8 H Baso % (Auto) 1.2 Neut # 4.2 Lymph # 1.3 [place] # 0.8 Eos # 0.4 Baso # 0.1 Puncture Site Rt radial Rb pCO2 50 H 47 H pO2 98 86 HCO3 31.7 H 31.6 H ABG pH 7.44 7.46 H ABG Total CO2 35.5 H 34.8 H ABG O2 Saturation 99.1 H 98.0 ABG Base Excess 8.7 H 8.6 H ABG Hemoglobin 9.5 L 8.9 L ABG Carboxyhemoglobin 2.2 H 2.1 H POC ABG HHb (Measured) 0.9 1.9 ABG Methemoglobin 1.1 1.1 Mitesh Test Pos Na A-a O2 Difference 125.0 140.0 Respiratory Index 1.3 1.6 Hgb O2 Saturation 95.7 94.9 L Mechanical Rate 14 FiO2 40.0 40.0 Tidal Volume 450 450 PEEP 5 5 Crit Value Called To Wero hatch md Crit Value Called By R alert Crit Value Read Back Y Blood Gas Notified Time 630 Sodium Potassium Chloride Carbon Dioxide Anion Gap BUN Creatinine Est GFR ( Amer) Est GFR (Non-Af Amer) Random Glucose Calcium Phosphorus Magnesium Total Bilirubin AST ALT Alkaline Phosphatase Total Protein Albumin Globulin Albumin/Globulin Ratio 03/17/17 06:31 WBC RBC Hgb Hct MCV MCH MCHC RDW Plt Count MPV Neut % (Auto) Lymph % (Auto) [place] % (Auto) Eos % (Auto) Baso % (Auto) Neut # Lymph # [place] # Eos # Baso # Puncture Site pCO2 pO2 HCO3 ABG pH ABG Total CO2 ABG O2 Saturation ABG Base Excess ABG Hemoglobin ABG Carboxyhemoglobin POC ABG HHb (Measured) ABG Methemoglobin Mitesh Test A-a O2 Difference Respiratory Index Hgb O2 Saturation Mechanical Rate FiO2 Tidal Volume PEEP Crit Value Called To Crit Value Called By Crit Value Read Back Blood Gas Notified Time Sodium 129 L Potassium 3.8 Chloride 89 L Carbon Dioxide 34 H Anion Gap 10 BUN 10 Creatinine 0.5 L Est GFR ( Amer) > 60 Est GFR (Non-Af Amer) > 60 Random Glucose 128 H Calcium 8.3 L Phosphorus 4.2 Magnesium 1.5 L Total Bilirubin 0.4 AST 42 ALT 38 Alkaline Phosphatase 164 H Total Protein 6.8 Albumin 2.8 L Globulin 3.9 Albumin/Globulin Ratio 0.7 L
[2017-03-18] MEDS: Acetylcysteine 20% Inhal Soln (4ml) INH SCH ×2 (01:20→08:38)
[2017-03-18] MEDS: Albuterol-Ipratrop 3 mg / 0.5 (3 ml) UD INH SCH ×4 (01:20→20:39)
[2017-03-18] MEDS: Propofol 10 mg/ml 1,000 MG/100 ML VIAL IV PRN (04:26)
[2017-03-18] MEDS: Vancomycin 125 MG/5 ML SOLN (ORAL/RECTAL) PO SCH ×3 (04:27→17:46)
[2017-03-18 06:04] LABS: ABG ALLEN TEST POS; ABG MECHANICAL RATE 14; ARTERIAL BLOOD HGB O2 SAT 94.2 % (95.0-98.0); ATERIAL BLOOD GAS PEEP 5; CARBOXYHEMOGLOBIN 2.4 % (0.5-1.5); DRAW SITE LR; HHB 2.6 % (0.0-5.0); METHEMOGLOBIN 0.7 % (0.0-3.0)
[2017-03-18 06:44] LABS: CHLORIDE 90 mmol/L (98-107); SODIUM 128 mmol/L (132-148)
[2017-03-18 06:46] LABS: ALB/GLOB RATIO 0.9 (1.0-2.1); ALKALINE PHOSPHATASE 157 U/L (38-126); AST/SGOT 39 U/L (17-59); BILIRUBIN,TOTAL 0.7 mg/dL (0.2-1.3); BLOOD UREA NITROGEN 11 mg/dL (9-20); CARBON DIOXIDE 29 mmol/L (22-30); GFR AFRICAN-AMERICAN > 60; TOTAL PROTEIN 6.9 g/dL (6.3-8.3)
[2017-03-18 06:47] LABS: ALT/SGPT 31 U/L (21-72); CALCIUM 8.4 mg/dl (8.6-10.4); GLUCOSE,RANDOM 149 mg/dL (75-110); MAGNESIUM 1.7 mg/dL (1.6-2.3); PHOSPHOROUS 4.2 mg/dL (2.5-4.5)
[2017-03-18 07:04] LABS: BASO # 0.1 K/uL (0.0-0.2); BASO % 1.7 % (0.0-2.0); EOS # 0.4 K/uL (0.0-0.7); LYMPH # 1.4 K/uL (1.0-4.3); LYMPH % 19.7 % (20.0-40.0); MEAN CELL VOLUME 80.3 fL (80.0-94.0); MEAN CORPUSCULAR HEMOGLOBIN 24.9 pg (27.0-31.0); MEAN PLATELET VOLUME 8.6 fL (7.2-11.7); MONO # 0.8 K/uL (0.0-0.8); MONO % 11.9 % (0.0-10.0); NRBC % 0.1 % (0.0-2.0); RED CELL DISTRIBUTION WIDTH 19.7 % (11.5-14.5); WHITE BLOOD COUNT 7.2 K/uL (4.8-10.8)
[2017-03-18] MEDS: Magnesium Sulfate 1 gm in D5W 1 GM/100 ML BAG IVPB SCH ×2 (08:23→09:30)
[2017-03-18] MEDS: Enoxaparin 40 mg Syringe SC SCH (09:45)
--- NOTE | 2017-03-18 09:54 | CP.CCUPN ---
CCU Subjective - Physician Review Events Since Last Encounter (Free Text): 03/18/17 09:50 Patient seen and examined in am, much more awake, good cough. Still with secretions that are whitish, but very thin and has a good cough. Extubated to NC this am, saturating 88% on 2 L NC. ros unable, patient does not answer, acts in a strange way pe: bp 118/76 mmhg, hr 90 bpm, O2 94% on 2 L NC, afebrile, rr 24 follows commands when he feels like it lungs very good bilateral air of entry, clean lungs s1, s2 rrr abdomen soft, non tender able to move all extremities legs with very little edema now a/p: aspiration pneumonia: continue cefepime until 03/24, then can d/c c. diff: no bowel movements for a few days, no fever, no increased wbc count, when he moves bowels send c. diff sample to d/c isolation is negative alcohol withdrawal resolved Will feed in pm If continues to do well can transfer in am CCU Objective - Vital Signs / Intake & Output Vital Signs (Last 4 hours): Vital Signs Temp Pulse Resp BP Pulse Ox 03/18/17 09:00 89 20 119/70 92 L 03/18/17 08:00 97.2 F L 92 H 21 114/69 94 L Intake and Output (Last 8hrs): Intake & Output 03/17/17 03/18/17 03/18/17 22:59 06:59 14:59 Intake Total 750.4 827.0 180.6 Output Total 365 300 170 Balance 385.4 527.0 10.6 Weight 144 lb 9.6 oz Intake: IV 163.2 100 0 Intake, IV Amount 197.2 187.0 120.6 Left Forearm 50 50 100 Right Hand 147.2 137.0 20.6 Tube Feeding 240 240 60 Other 150 300 Output: Urine 365 300 170 Urethral (Abreu) 365 300 170 Other: # Bowel Movements 0 0 0 - Physical Exam Head: Positive for: Normocephalic, Abrasion Pupils: Positive for: PERRL Extroacular Muscles: Positive for: EOMI Mouth: Positive for: Moist Mucous Membranes Respiratory/Chest: Positive for: Good Air Exchange. Negative for: Respiratory Distress Cardiovascular: Positive for: Regular Rate and Rhythm, Normal S1, S2 Abdomen: Positive for: Normal Bowel Sounds. Negative for: Tenderness, Distention Upper Extremity: Positive for: NORMAL PULSES, Neurovascularly Intact Lower Extremity: Positive for: NORMAL PULSES, Neurovascularly Intact Neurological: Positive for: Other (Sedated) Skin: Positive for: Warm, Dry Psychiatric: Positive for: Alert. Negative for: Oriented x 3, Normal Insight - Medications Active Medications: Active Medications Generic Name Dose Route Start Last Admin Trade Name Freq PRN Reason Stop Dose Admin Albuterol/Ipratropium 3 ml 03/11/17 20:00 03/18/17 08:38 Duoneb 3 Mg/0.5 Mg (3 Ml) Ud INH 3 ml RQ6 [facility] Administration Chlordiazepoxide 10 mg 03/17/17 12:07 03/18/17 06:16 Librium PO 10 mg Q8 [facility] Administration Enoxaparin Sodium 40 mg 03/16/17 10:00 03/18/17 09:45 Lovenox SC 40 mg DAILY [facility] Administration Famotidine 20 mg 03/18/17 10:00 Pepcid PO DAILY [facility] Folic Acid 1 mg 03/16/17 10:00 03/17/17 09:47 Folic Acid PO 1 mg DAILY [facility] Administration Cefepime HCl 1 gm/ Dextrose 50 mls @ 100 mls/hr 03/09/17 21:00 03/18/17 04:28 IVPB 100 mls/hr Q8H [facility] Administration Levetiracetam 500 mg 03/17/17 18:00 03/17/17 17:36 Keppra PO 500 mg BID [facility] Administration Multivitamins 1 tab 03/16/17 10:00 03/17/17 09:48 Hexavitamin PO 1 tab DAILY [facility] Administration Polyethylene Glycol 17 gm 03/18/17 14:00 Miralax PO DAILY [facility] Scopolamine 1 patch 03/17/17 14:00 03/17/17 14:59 Transderm-Scop TD 03/19/17 14:00 1 patch Q3D [facility] Administration Thiamine HCl 100 mg 03/16/17 10:00 03/17/17 09:47 Vitamin B1 Tab PO 100 mg DAILY [facility] Administration Vancomycin HCl 250 mg 03/15/17 11:00 03/18/17 04:27 Vancocin (Oral Or Rectal Use) PO 250 mg Q6H [facility] Administration - Patient Studies Lab Studies: Lab Studies 03/18/17 03/18/17 03/18/17 Range/Units 06:35 06:18 05:46 WBC 7.2 (4.8-10.8) K/uL RBC 3.98 L (4.40-5.90) Mil/uL Hgb 9.9 L (12.0-18.0) g/dL Hct 32.0 L (35.0-51.0) % MCV 80.3 (80.0-94.0) fL MCH 24.9 L (27.0-31.0) pg MCHC 31.0 L (33.0-37.0) g/dL RDW 19.7 H (11.5-14.5) % Plt Count 239 (130-400) K/uL MPV 8.6 (7.2-11.7) fL Neut % (Auto) 61.7 (50.0-75.0) % Lymph % (Auto) 19.7 L (20.0-40.0) % [place] % (Auto) 11.9 H (0.0-10.0) % Eos % (Auto) 5.0 H (0.0-4.0) % Baso % (Auto) 1.7 (0.0-2.0) % Neut # 4.4 (1.8-7.0) K/uL Lymph # 1.4 (1.0-4.3) K/uL [place] # 0.8 (0.0-0.8) K/uL Eos # 0.4 (0.0-0.7) K/uL Baso # 0.1 (0.0-0.2) K/uL Puncture Site Lr pCO2 48 H (35-45) mm/Hg pO2 73 L (80-100) mm/Hg HCO3 30.1 H (21-28) mmol/L ABG pH 7.43 (7.35-7.45) ABG Total CO2 33.4 H (22-28) mmol/L ABG O2 Saturation 97.3 (95-98) % ABG Base Excess 6.7 H (-2.0-3.0) mmol/L ABG Hemoglobin 9.1 L (11.7-17.4) g/dL ABG Carboxyhemoglobin 2.4 H (0.5-1.5) % POC ABG HHb (Measured) 2.6 (0.0-5.0) % ABG Methemoglobin 0.7 (0.0-3.0) % Mitesh Test Pos A-a O2 Difference 152.0 mm/Hg Respiratory Index 2.1 Hgb O2 Saturation 94.2 L (95.0-98.0) % Mechanical Rate 14 FiO2 40.0 % Tidal Volume 450 PEEP 5 Sodium 128 L (132-148) mmol/L Potassium 4.0 (3.6-5.2) mmol/L Chloride 90 L (98-107) mmol/L Carbon Dioxide 29 (22-30) mmol/L Anion Gap 13 (10-20) BUN 11 (9-20) mg/dL Creatinine 0.5 L (0.8-1.5) MG/DL Est GFR ( Amer) > 60 Est GFR (Non-Af Amer) > 60 Random Glucose 149 H (75-110) mg/dL Calcium 8.4 L (8.6-10.4) mg/dl Phosphorus 4.2 (2.5-4.5) mg/dL Magnesium 1.7 (1.6-2.3) mg/dL Total Bilirubin 0.7 (0.2-1.3) mg/dL AST 39 (17-59) U/L ALT 31 (21-72) U/L Alkaline Phosphatase 157 H (38-126) U/L Total Protein 6.9 (6.3-8.3) g/dL Albumin 3.2 L (3.5-5.0) g/dL Globulin 3.7 (2.2-3.9) gm/dL Albumin/Globulin Ratio 0.9 L (1.0-2.1) Laboratory Results - last 24 hr 03/18/17 03/18/17 03/18/17 05:46 06:18 06:35 WBC 7.2 RBC 3.98 L Hgb 9.9 L Hct 32.0 L MCV 80.3 MCH 24.9 L MCHC 31.0 L RDW 19.7 H Plt Count 239 MPV 8.6 Neut % (Auto) 61.7 Lymph % (Auto) 19.7 L [place] % (Auto) 11.9 H Eos % (Auto) 5.0 H Baso % (Auto) 1.7 Neut # 4.4 Lymph # 1.4 [place]ates # 0.8 Eos # 0.4 Baso # 0.1 Puncture Site Lr pCO2 48 H pO2 73 L HCO3 30.1 H ABG pH 7.43 ABG Total CO2 33.4 H ABG O2 Saturation 97.3 ABG Base Excess 6.7 H ABG Hemoglobin 9.1 L ABG Carboxyhemoglobin 2.4 H POC ABG HHb (Measured) 2.6 ABG Methemoglobin 0.7 Mitesh Test Pos A-a O2 Difference 152.0 Respiratory Index 2.1 Hgb O2 Saturation 94.2 L Mechanical Rate 14 FiO2 40.0 Tidal Volume 450 PEEP 5 Sodium 128 L Potassium 4.0 Chloride 90 L Carbon Dioxide 29 Anion Gap 13 BUN 11 Creatinine 0.5 L Est GFR ( Amer) > 60 Est GFR (Non-Af Amer) > 60 Random Glucose 149 H Calcium 8.4 L Phosphorus 4.2 Magnesium 1.7 Total Bilirubin 0.7 AST 39 ALT 31 Alkaline Phosphatase 157 H Total Protein 6.9 Albumin 3.2 L Globulin 3.7 Albumin/Globulin Ratio 0.9 L
[2017-03-18] MEDS: Multiple Vitamins Tab PO SCH (10:00)
--- NOTE | 2017-03-18 10:20 | CP.PCM.PN ---
Subjective - Date & Time of Evaluation Date of Evaluation: 03/18/17 Time of Evaluation: 10:19 - Subjective Subjective: Patient seen and examined Given a spontaneous breathing trial and extubated with good weaning parameters Objective - Vital Signs/Intake and Output Vital Signs (last 24 hours): Temp Pulse Resp BP Pulse Ox 97.2 F L 89 20 119/70 92 L 03/18/17 08:00 03/18/17 09:00 03/18/17 09:00 03/18/17 09:00 03/18/17 09:00 Intake and Output: 03/18/17 03/18/17 06:59 18:59 Intake Total 1270.6 180.6 Output Total 465 170 Balance 805.6 10.6 - Medications Medications: Current Medications Albuterol/Ipratropium (Duoneb 3 Mg/0.5 Mg (3 Ml) Ud) 3 ml INH RQ6 [facility] Last Admin: 03/18/17 08:38 Dose: 3 ml Chlordiazepoxide (Librium) 10 mg PO Q8 [facility] Last Admin: 03/18/17 06:16 Dose: 10 mg Enoxaparin Sodium (Lovenox) 40 mg SC DAILY [facility] Last Admin: 03/18/17 09:45 Dose: 40 mg Famotidine (Pepcid) 20 mg PO DAILY [facility] Folic Acid (Folic Acid) 1 mg PO DAILY [facility] Last Admin: 03/17/17 09:47 Dose: 1 mg Cefepime HCl 1 gm/ Dextrose 50 mls @ 100 mls/hr IVPB Q8H [facility] Stop: 03/24/17 11:00 Last Admin: 03/18/17 04:28 Dose: 100 mls/hr Levetiracetam (Keppra) 500 mg PO BID [facility] Last Admin: 03/17/17 17:36 Dose: 500 mg Multivitamins (Hexavitamin) 1 tab PO DAILY [facility] Last Admin: 03/17/17 09:48 Dose: 1 tab Polyethylene Glycol (Miralax) 17 gm PO DAILY [facility] Scopolamine (Transderm-Scop) 1 patch TD Q3D [facility] Stop: 03/19/17 14:00 Last Admin: 03/17/17 14:59 Dose: 1 patch Thiamine HCl (Vitamin B1 Tab) 100 mg PO DAILY [facility] Last Admin: 03/17/17 09:47 Dose: 100 mg Vancomycin HCl (Vancocin (Oral Or Rectal Use)) 250 mg PO Q6H [facility] Last Admin: 03/18/17 04:27 Dose: 250 mg - Labs Labs: 03/18/17 06:35 03/18/17 06:18 PT 12.0 SECONDS (9.7-12.2) 03/16/17 06:02 INR 1.1 03/16/17 06:02 APTT 33 SECONDS (21-34) 03/16/17 06:02 - Head Exam Head Exam: NORMAL INSPECTION - Eye Exam Eye Exam: Normal appearance - ENT Exam ENT Exam: Mucous Membranes Moist - Respiratory Exam Respiratory Exam: Clear to Ausculation Bilateral - Cardiovascular Exam Cardiovascular Exam: REGULAR RHYTHM - GI/Abdominal Exam GI & Abdominal Exam: Soft, Normal Bowel Sounds - Extremities Exam Extremities Exam: Normal Inspection - Neurological Exam Neurological Exam: Alert, Oriented x3 Assessment and Plan - Assessment and Plan (Free Text) Assessment: Acute respiratory failure Pneumonia COPD Right mastoid fracture Subarachnoid hemorrhage Subdural hemorrhage Seizures History of alcohol abuse S/P extubation Continue antibiotic Bronchodilators Seizure prophylaxis Thiamine and folate Rest as per ICU management DVT/GI prophylaxis
--- NOTE | 2017-03-18 12:46 | RAD ---
HISTORY: intubated COMPARISON: Comparison is made to the previous study 03/17/2017 FINDINGS: LUNGS: No significant interval change in the lungs noted since the previous exam. The ET tube is seen at appropriate position. PLEURA: No significant pleural effusion identified, no pneumothorax apparent. CARDIOVASCULAR: Normal. OSSEOUS STRUCTURES: No significant abnormalities. VISUALIZED UPPER ABDOMEN: Normal. OTHER FINDINGS: NG tube seen extending to the stomach. IMPRESSION: No evidence of significant interval change.
[2017-03-18] MEDS ORDERED: levETIRAcetam 500 MG in Sodium Chloride 0.9% 100 ML IVPB SCH (14:15)
[2017-03-18] MEDS: Sodium Chloride 0.9% 1,000 ML IV SCH (14:30)
--- NOTE | 2017-03-18 16:27 | CP.PCM.PN ---
Subjective - Date & Time of Evaluation Date of Evaluation: 03/18/17 Time of Evaluation: 10:00 - Subjective Subjective: clinically same Objective - Vital Signs/Intake and Output Vital Signs (last 24 hours): Temp Pulse Resp BP Pulse Ox 98 F 98 H 18 141/81 92 L 03/18/17 12:00 03/18/17 15:00 03/18/17 15:00 03/18/17 15:00 03/18/17 15:00 Intake and Output: 03/18/17 03/18/17 06:59 18:59 Intake Total 1270.6 442.6 Output Total 465 450 Balance 805.6 -7.4 - Medications Medications: Current Medications Albuterol/Ipratropium (Duoneb 3 Mg/0.5 Mg (3 Ml) Ud) 3 ml INH RQ6 [facility] Last Admin: 03/18/17 13:26 Dose: 3 ml Chlordiazepoxide (Librium) 10 mg PO Q8 [facility] Last Admin: 03/18/17 06:16 Dose: 10 mg Enoxaparin Sodium (Lovenox) 40 mg SC DAILY [facility] Last Admin: 03/18/17 09:45 Dose: 40 mg Famotidine (Pepcid) 20 mg PO DAILY [facility] Famotidine (Pepcid) 20 mg IVP DAILY [facility] Cefepime HCl 1 gm/ Dextrose 50 mls @ 100 mls/hr IVPB Q8H [facility] Stop: 03/24/17 11:00 Last Admin: 03/18/17 12:32 Dose: 100 mls/hr Levetiracetam 500 mg/ Sodium (Chloride) 105 mls @ 420 mls/hr IVPB Q12H [facility] Sodium Chloride (Sodium Chloride 0.9%) 1,000 mls @ 75 mls/hr IV .[id number] [facility] Last Admin: 03/18/17 14:30 Dose: 75 mls/hr Polyethylene Glycol (Miralax) 17 gm PO DAILY [facility] Scopolamine (Transderm-Scop) 1 patch TD Q3D [facility] Last Admin: 03/17/17 14:59 Dose: 1 patch Vancomycin HCl (Vancocin (Oral Or Rectal Use)) 250 mg PO Q6H [facility] Last Admin: 03/18/17 11:03 Dose: Not Given - Labs Labs: 03/18/17 06:35 03/18/17 06:18 PT 12.0 SECONDS (9.7-12.2) 03/16/17 06:02 INR 1.1 03/16/17 06:02 APTT 33 SECONDS (21-34) 03/16/17 06:02 - Constitutional Appears: Well - Head Exam Head Exam: ATRAUMATIC, NORMAL INSPECTION, NORMOCEPHALIC - Eye Exam Eye Exam: EOMI, Normal appearance, PERRL Pupil Exam: NORMAL ACCOMODATION, PERRL - ENT Exam ENT Exam: Mucous Membranes Moist, Normal Exam - Neck Exam Neck Exam: Full ROM, Normal Inspection. absent: Lymphadenopathy - Respiratory Exam Respiratory Exam: Decreased Breath Sounds, Clear to Ausculation Bilateral, NORMAL BREATHING PATTERN - Cardiovascular Exam Cardiovascular Exam: REGULAR RHYTHM, +S1, +S2 - GI/Abdominal Exam GI & Abdominal Exam: Soft, Diminished Bowel Sounds - Rectal Exam Rectal Exam: Deferred Assessment and Plan (1) Abdominal pain Status: Acute (2) Abrasion Status: Acute (3) Alcohol abuse with intoxication Status: Acute (4) Alcohol intoxication Status: Acute (5) Alcohol withdrawal Status: Acute (6) Alcohol withdrawal seizure Status: Acute (7) Bacteremia Status: Acute (8) Bilateral lower extremity edema Status: Acute (9) Breakthrough seizure Status: Acute (10) Cellulitis Status: Acute (11) Cellulitis of lower extremity Status: Acute (12) Chronic calcific pancreatitis Status: Acute (13) Dehydration Status: Acute (14) Diarrhea Status: Acute (15) Dressing change/suture removal Status: Acute (16) Drug dependence Status: Acute (17) Duodenitis Status: Acute (18) Electrolyte imbalance Status: Acute (19) Elevated alkaline phosphatase level Status: Acute (20) Facial laceration Status: Acute (21) Fever Status: Acute (22) Head trauma Status: Acute (23) Homelessness Status: Acute (24) Hyperphosphatemia Status: Acute (25) Hypokalemia Status: Acute (26) Hypokalemia with normal acid-base balance Status: Acute (27) Hypomagnesemia Status: Acute (28) Hypothermia Status: Acute (29) Low vitamin D level Status: Acute (30) Pancreatic mass Status: Acute (31) Pancreatitis, acute Status: Acute (32) Periapical abscess Status: Acute (33) Pneumonia Status: Acute (34) Pneumonia Status: Acute (35) Prophylactic measure Status: Acute (36) Respiratory failure with hypoxia and hypercapnia Status: Acute (37) Seizure Status: Acute (38) Skull fracture Status: Acute (39) Subarachnoid bleed Status: Acute (40) Subdural hematoma Status: Acute (41) Subdural hemorrhage Status: Acute (42) Thrombocythemia Status: Acute (43) Thrombocytopenia Status: Acute (44) Tobacco abuse Status: Acute (45) Tremors of nervous system Status: Acute (46) Vitamin D deficiency Status: Acute (47) Acute on chronic pancreatitis Status: Chronic (48) Alcohol abuse Status: Chronic (49) Alcohol abuse Status: Chronic (50) Alcohol dependence Status: Chronic (51) Anemia Status: Chronic (52) Anxiety and depression Status: Chronic (53) Aspiration into lower respiratory tract Status: Chronic (54) COPD (chronic obstructive pulmonary disease) Status: Chronic (55) Cholecystitis Status: Chronic (56) Chronic pancreatitis Status: Chronic (57) Depression Status: Chronic (58) Hypertension Status: Chronic (59) Peripheral motor neuropathy Status: Chronic (60) Empyema Status: Suspected (61) Seizure Status: Resolved - Assessment and Plan (Free Text) Plan: Follow-up neurologist Follow-up with ID Continue Keppra Continue thiamine Follow-up with labs
[2017-03-18] MEDS: Dexmedetomidine Hydrochloride 200 MCG in Sodium Chloride 0.9% 48 ML IV PRN ×2 (17:04→23:13)
[2017-03-18] MEDS: POLYETHYLENE GLYCOL 3350 17 GM/Dose PACKET PO SCH (17:41)
[2017-03-18] MEDS: levETIRAcetam 500 MG in Sodium Chloride 0.9% 100 ML IVPB SCH (18:00)
[2017-03-18] MEDS: Vancomycin 125 MG/5 ML SOLN (ORAL/RECTAL) PR SCH (23:57)
[2017-03-19] MEDS: Albuterol-Ipratrop 3 mg / 0.5 (3 ml) UD INH SCH ×4 (01:37→20:03)
[2017-03-19] MEDS: Sodium Chloride 0.9% 1,000 ML IV SCH ×3 (02:31→17:42)
[2017-03-19] MEDS: Vancomycin 125 MG/5 ML SOLN (ORAL/RECTAL) PR SCH (05:07)
[2017-03-19] MEDS: levETIRAcetam 500 MG in Sodium Chloride 0.9% 100 ML IVPB SCH ×2 (06:39→18:39)
[2017-03-19 06:55] LABS: BASO # 0.1 K/uL (0.0-0.2); BASO % 1.4 % (0.0-2.0); EOS # 0.4 K/uL (0.0-0.7); EOS % 4.6 % (0.0-4.0); HEMATOCRIT 30.5 % (35.0-51.0); LYMPH # 1.3 K/uL (1.0-4.3); LYMPH % 17.3 % (20.0-40.0); MEAN CELL VOLUME 79.7 fL (80.0-94.0); MEAN CORPUSCULAR HEMOGLOBIN 24.7 pg (27.0-31.0); MEAN PLATELET VOLUME 8.6 fL (7.2-11.7); MONO # 0.5 K/uL (0.0-0.8); WHITE BLOOD COUNT 7.7 K/uL (4.8-10.8)
[2017-03-19 07:04] LABS: CHLORIDE 89 mmol/L (98-107); SODIUM 128 mmol/L (132-148)
[2017-03-19 07:07] LABS: GFR AFRICAN-AMERICAN > 60
[2017-03-19 07:08] LABS: BLOOD UREA NITROGEN 9 mg/dL (9-20); CALCIUM 8.3 mg/dl (8.6-10.4); CARBON DIOXIDE 29 mmol/L (22-30); GLUCOSE,RANDOM 91 mg/dL (75-110); MAGNESIUM 1.4 mg/dL (1.6-2.3)
[2017-03-19] MEDS: Dexmedetomidine Hydrochloride 200 MCG in Sodium Chloride 0.9% 48 ML IV PRN ×2 (08:19→21:00)
[2017-03-19] MEDS: Enoxaparin 40 mg Syringe SC SCH (09:25)
[2017-03-19] MEDS: Magnesium Sulfate 1 gm in D5W 1 GM/100 ML BAG IVPB SCH ×2 (10:57→11:15)
--- NOTE | 2017-03-19 11:00 | CP.CCUPN ---
<Matthew Melo - Last Filed: 03/19/17 10:58> CCU Subjective - Physician Review Subjective (Free Text): 03/19/17 10:58 PGY-1 progress note Pt seen and examined at bedside. No overnight events per staff. Pt now extubated , drowsy, but arousable. Critical Care Time Spent (in minutes): 35 CCU Objective - Vital Signs / Intake & Output Intake and Output (Last 8hrs): Intake & Output 03/18/17 03/19/17 03/19/17 22:59 06:59 14:59 Intake Total 791.4 800.8 342.6 Output Total 500 500 225 Balance 291.4 300.8 117.6 Weight 146 lb Intake: IV 2 98 5 Intake, IV Amount 789.4 702.8 337.6 Left Forearm 600 600 225 Right Hand 150 50 100 side port left fforearm 26.4 52.8 12.6 side port left forearm 13.0 Oral 0 0 Tube Feeding 0 Output: Urine 500 500 225 Urethral (Abreu) 500 500 225 Other: # Bowel Movements 1 - Physical Exam Head: Positive for: Normocephalic, Abrasion Pupils: Positive for: PERRL Extroacular Muscles: Positive for: EOMI Mouth: Positive for: Moist Mucous Membranes Respiratory/Chest: Positive for: Good Air Exchange, Rhonchi. Negative for: Respiratory Distress Cardiovascular: Positive for: Regular Rate and Rhythm, Normal S1, S2 Abdomen: Positive for: Normal Bowel Sounds. Negative for: Tenderness, Distention Upper Extremity: Positive for: NORMAL PULSES, Neurovascularly Intact Lower Extremity: Positive for: NORMAL PULSES, Neurovascularly Intact Neurological: Positive for: Other (Sedated) Skin: Positive for: Warm, Dry Psychiatric: Positive for: Alert. Negative for: Oriented x 3, Normal Insight - Medications Active Medications: Active Medications Generic Name Dose Route Start Last Admin Trade Name Freq PRN Reason Stop Dose Admin Albuterol/Ipratropium 3 ml 03/11/17 20:00 03/19/17 07:38 Duoneb 3 Mg/0.5 Mg (3 Ml) Ud INH 3 ml RQ6 [facility] Administration Chlordiazepoxide 5 mg 03/19/17 10:15 Librium PO Q12 [facility] Enoxaparin Sodium 40 mg 03/16/17 10:00 03/19/17 09:25 Lovenox SC 40 mg DAILY [facility] Administration Famotidine 20 mg 03/18/17 10:00 03/18/17 10:00 Pepcid PO Not Given DAILY [facility] Famotidine 20 mg 03/19/17 10:00 03/19/17 09:25 Pepcid IVP 20 mg DAILY [facility] Administration Cefepime HCl 1 gm/ Dextrose 50 mls @ 100 mls/hr 03/09/17 21:00 03/19/17 05:05 IVPB 03/24/17 11:00 100 mls/hr Q8H [facility] Administration Sodium Chloride 1,000 mls @ 75 mls/hr 03/18/17 14:15 03/19/17 07:35 Sodium Chloride 0.9% IV Not Given .[id number] [facility] Dexmedetomidine HCl 200 mcg/ 50 mls @ 3.27 mls/hr 03/18/17 16:41 03/19/17 09: 00 Sodium Chloride IV 0.3 mcg/kg/hr TITR PRN 4.91 mls/hr Agitation Titration Protocol 0.2 MCG/KG/HR Levetiracetam 500 mg/ Sodium 105 mls @ 420 mls/hr 03/18/17 19:00 03/19/17 06: 39 Chloride IVPB 420 mls/hr Q12H [facility] Administration Magnesium Sulfate/Dextrose 1 gm in 100 mls @ 200 mls/hr 03/19/17 10:15 Magnesium Sulfate 1 Gm/100 Ml D5w IVPB 03/19/17 11:14 Q30M [facility] Polyethylene Glycol 17 gm 03/18/17 14:00 03/18/17 17:41 Miralax PO Not Given DAILY [facility] Scopolamine 1 patch 03/17/17 14:00 03/17/17 14:59 Transderm-Scop TD 1 patch Q3D [facility] Administration Vancomycin HCl 500 mg 03/19/17 00:00 03/19/17 05:07 Vancocin (Oral Or Rectal Use) [place] 500 mg Q6H [facility] Administration - Patient Studies Lab Studies: Lab Studies 03/19/17 03/19/17 03/18/17 Range/Units 06:50 06:50 18:30 WBC 7.7 (4.8-10.8) K/uL RBC 3.82 L (4.40-5.90) Mil/uL Hgb 9.4 L (12.0-18.0) g/dL Hct 30.5 L (35.0-51.0) % MCV 79.7 L (80.0-94.0) fL MCH 24.7 L (27.0-31.0) pg MCHC 31.0 L (33.0-37.0) g/dL RDW 19.0 H (11.5-14.5) % Plt Count 289 (130-400) K/uL MPV 8.6 (7.2-11.7) fL Neut % (Auto) 69.7 (50.0-75.0) % Lymph % (Auto) 17.3 L (20.0-40.0) % Meeker % (Auto) 7.0 (0.0-10.0) % Eos % (Auto) 4.6 H (0.0-4.0) % Baso % (Auto) 1.4 (0.0-2.0) % Neut # 5.4 (1.8-7.0) K/uL Lymph # 1.3 (1.0-4.3) K/uL Meeker # 0.5 (0.0-0.8) K/uL Eos # 0.4 (0.0-0.7) K/uL Baso # 0.1 (0.0-0.2) K/uL Sodium 128 L (132-148) mmol/L Potassium 4.0 (3.6-5.2) mmol/L Chloride 89 L (98-107) mmol/L Carbon Dioxide 29 (22-30) mmol/L Anion Gap 14 (10-20) BUN 9 (9-20) mg/dL Creatinine 0.5 L (0.8-1.5) MG/DL Est GFR ( Amer) > 60 Est GFR (Non-Af Amer) > 60 Random Glucose 91 (75-110) mg/dL Calcium 8.3 L (8.6-10.4) mg/dl Phosphorus 4.0 (2.5-4.5) mg/dL Magnesium 1.4 L (1.6-2.3) mg/dL C. difficile Ag & Toxin Negative (NEGATIVE) Laboratory Results - last 24 hr 03/18/17 03/19/17 03/19/17 18:30 06:50 06:50 WBC 7.7 RBC 3.82 L Hgb 9.4 L Hct 30.5 L MCV 79.7 L MCH 24.7 L MCHC 31.0 L RDW 19.0 H Plt Count 289 MPV 8.6 Neut % (Auto) 69.7 Lymph % (Auto) 17.3 L Meeker % (Auto) 7.0 Eos % (Auto) 4.6 H Baso % (Auto) 1.4 Neut # 5.4 Lymph # 1.3 Meeker # 0.5 Eos # 0.4 Baso # 0.1 Sodium 128 L Potassium 4.0 Chloride 89 L Carbon Dioxide 29 Anion Gap 14 BUN 9 Creatinine 0.5 L Est GFR ( Amer) > 60 Est GFR (Non-Af Amer) > 60 Random Glucose 91 Calcium 8.3 L Phosphorus 4.0 Magnesium 1.4 L C. difficile Ag & Toxin Negative Review of Systems - Review of Systems Systems not reviewed;Unavailable: Acuity of Condition Assessment/Plan - Assessment and Plan (Free Text) Assessment: This is a 51 yo M with PMH of Etoh abuse admitted with R mastoid fracture, small subarachnoid and subdural hemorrhage, complicated by seizure secondary to Etoh withdrawal vs brain hemorrhage. Pt now being treated for pneumonia, extubated on 03/18, tolerating well. Plan: Neuro: Sedated with precedex. Arousable Keppra 500mg q12 IV Alcohol W/D Librium 5mg PO Q12H Folic acid/thiamine/MV PO Cardiovascular: Normotensive Hemodynamically stale Cardiac Stable Pulmonary: Extubated on 03/18, tolerating well Being treated for pneumonia with CXR showing a confluent opacity at the right lung base. On cefepime till 03/24 Gastrointestinal: Pending swallow eval EtOH cirrhosis C diff now negative, will repeat Vancomycin 250mg PO q6 (start 03/15) Hematology: chronic anemia, stable Endocrine: No acute issues Renal: Mild hyponatremia - 128 on AM labs - Monitor Musculoskeletal: No ulcers notes Genitourinary: No issues Infectious Disease: Cefepime 1g IV q8 (start 03/09) Vancomycin 250mg PO q6 (start 03/15) Psych: Anxiety Xanax .25mg PO daily GI Prophylaxis: Protonix 40mg IV daily DVT Prophylaxis: Lovenox 40mg SC Daily <Juan Antonio Wang - Last Filed: 03/19/17 18:47> CCU Objective - Vital Signs / Intake & Output Vital Signs (Last 4 hours): Vital Signs Pulse Resp BP Pulse Ox 03/19/17 18:01 142/70 03/19/17 18:00 65 15 95 03/19/17 17:00 70 18 134/77 96 03/19/17 16:35 70 18 123/74 03/19/17 16:00 66 17 93 L 03/19/17 15:00 68 16 96 Intake and Output (Last 8hrs): Intake & Output 03/19/17 03/19/17 03/19/17 06:59 14:59 22:59 Intake Total 800.8 724.6 Output Total 500 465 Balance 300.8 259.6 Weight 146 lb Intake: IV 98 21 Intake, IV Amount 702.8 703.6 Left Forearm 600 575 Right Hand 50 100 side port left fforearm 52.8 28.6 Oral 0 Output: Urine 500 465 Condom 90 Urethral (Abreu) 500 375 - Medications Active Medications: Active Medications Generic Name Dose Route Start Last Admin Trade Name Freq PRN Reason Stop Dose Admin Albuterol/Ipratropium 3 ml 03/11/17 20:00 03/19/17 13:09 Duoneb 3 Mg/0.5 Mg (3 Ml) Ud INH 3 ml RQ6 [facility] Administration Chlordiazepoxide 5 mg 03/19/17 10:15 03/19/17 10:57 Librium PO 5 mg Q12 [facility] Administration Enoxaparin Sodium 40 mg 03/16/17 10:00 03/19/17 09:25 Lovenox SC 40 mg DAILY [facility] Administration Famotidine 20 mg 03/19/17 10:00 03/19/17 09:25 Pepcid IVP 20 mg DAILY [facility] Administration Cefepime HCl 1 gm/ Dextrose 50 mls @ 100 mls/hr 03/09/17 21:00 03/19/17 12:42 IVPB 03/24/17 11:00 100 mls/hr Q8H [facility] Administration Sodium Chloride 1,000 mls @ 75 mls/hr 03/18/17 14:15 03/19/17 17:42 Sodium Chloride 0.9% IV 75 mls/hr .[id number] [facility] Administration Dexmedetomidine HCl 200 mcg/ 50 mls @ 3.27 mls/hr 03/18/17 16:41 03/19/17 11: 01 Sodium Chloride IV 0.2 mcg/kg/hr TITR PRN 3.27 mls/hr Agitation Titration Protocol 0.2 MCG/KG/HR Levetiracetam 500 mg/ Sodium 105 mls @ 420 mls/hr 03/18/17 19:00 03/19/17 18: 39 Chloride IVPB 420 mls/hr Q12H [facility] Administration Scopolamine 1 patch 03/17/17 14:00 03/17/17 14:59 Transderm-Scop TD 1 patch Q3D [facility] Administration Vancomycin HCl 250 mg 03/19/17 13:30 03/19/17 18:39 Vancocin (Oral Or Rectal Use) PO 250 mg Q6H [facility] Administration - Patient Studies Lab Studies: Lab Studies 03/19/17 03/19/17 03/18/17 Range/Units 06:50 06:50 18:30 WBC 7.7 (4.8-10.8) K/uL RBC 3.82 L (4.40-5.90) Mil/uL Hgb 9.4 L (12.0-18.0) g/dL Hct 30.5 L (35.0-51.0) % MCV 79.7 L (80.0-94.0) fL MCH 24.7 L (27.0-31.0) pg MCHC 31.0 L (33.0-37.0) g/dL RDW 19.0 H (11.5-14.5) % Plt Count 289 (130-400) K/uL MPV 8.6 (7.2-11.7) fL Neut % (Auto) 69.7 (50.0-75.0) % Lymph % (Auto) 17.3 L (20.0-40.0) % Meeker % (Auto) 7.0 (0.0-10.0) % Eos % (Auto) 4.6 H (0.0-4.0) % Baso % (Auto) 1.4 (0.0-2.0) % Neut # 5.4 (1.8-7.0) K/uL Lymph # 1.3 (1.0-4.3) K/uL Meeker # 0.5 (0.0-0.8) K/uL Eos # 0.4 (0.0-0.7) K/uL Baso # 0.1 (0.0-0.2) K/uL Sodium 128 L (132-148) mmol/L Potassium 4.0 (3.6-5.2) mmol/L Chloride 89 L (98-107) mmol/L Carbon Dioxide 29 (22-30) mmol/L Anion Gap 14 (10-20) BUN 9 (9-20) mg/dL Creatinine 0.5 L (0.8-1.5) MG/DL Est GFR ( Amer) > 60 Est GFR (Non-Af Amer) > 60 Random Glucose 91 (75-110) mg/dL Calcium 8.3 L (8.6-10.4) mg/dl Phosphorus 4.0 (2.5-4.5) mg/dL Magnesium 1.4 L (1.6-2.3) mg/dL C. difficile Ag & Toxin Negative (NEGATIVE) Laboratory Results - last 24 hr 03/18/17 03/19/17 03/19/17 18:30 06:50 06:50 WBC 7.7 RBC 3.82 L Hgb 9.4 L Hct 30.5 L MCV 79.7 L MCH 24.7 L MCHC 31.0 L RDW 19.0 H Plt Count 289 MPV 8.6 Neut % (Auto) 69.7 Lymph % (Auto) 17.3 L Meeker % (Auto) 7.0 Eos % (Auto) 4.6 H Baso % (Auto) 1.4 Neut # 5.4 Lymph # 1.3 Meeker # 0.5 Eos # 0.4 Baso # 0.1 Sodium 128 L Potassium 4.0 Chloride 89 L Carbon Dioxide 29 Anion Gap 14 BUN 9 Creatinine 0.5 L Est GFR ( Amer) > 60 Est GFR (Non-Af Amer) > 60 Random Glucose 91 Calcium 8.3 L Phosphorus 4.0 Magnesium 1.4 L C. difficile Ag & Toxin Negative Attending/Attestation - Attestation I have personally seen and examined this patient.: Yes I have fully participated in the care of the patient.: Yes I have reviewed all pertinent clinical information: Yes Notes (Text): 03/19/17 18:47 continue current treatment
[2017-03-19] MEDS: POLYETHYLENE GLYCOL 3350 17 GM/Dose PACKET PO SCH (12:47)
[2017-03-19] MEDS: Vancomycin 125 MG/5 ML SOLN (ORAL/RECTAL) PO SCH ×2 (13:55→18:39)
--- NOTE | 2017-03-19 18:17 | CP.PCM.PN ---
Subjective - Date & Time of Evaluation Date of Evaluation: 03/19/17 Time of Evaluation: 14:00 - Subjective Subjective: clinically same Objective - Vital Signs/Intake and Output Vital Signs (last 24 hours): Temp Pulse Resp BP Pulse Ox 98.2 F 74 12 130/70 98 03/19/17 08:00 03/19/17 11:01 03/19/17 11:01 03/19/17 11:00 03/19/17 11:01 Intake and Output: 03/19/17 03/19/17 06:59 18:59 Intake Total 1180.4 724.6 Output Total 750 465 Balance 430.4 259.6 - Medications Medications: Current Medications Albuterol/Ipratropium (Duoneb 3 Mg/0.5 Mg (3 Ml) Ud) 3 ml INH RQ6 [facility] Last Admin: 03/19/17 13:09 Dose: 3 ml Chlordiazepoxide (Librium) 5 mg PO Q12 [facility] Last Admin: 03/19/17 10:57 Dose: 5 mg Enoxaparin Sodium (Lovenox) 40 mg SC DAILY [facility] Last Admin: 03/19/17 09:25 Dose: 40 mg Famotidine (Pepcid) 20 mg IVP DAILY [facility] Last Admin: 03/19/17 09:25 Dose: 20 mg Cefepime HCl 1 gm/ Dextrose 50 mls @ 100 mls/hr IVPB Q8H [facility] Stop: 03/24/17 11:00 Last Admin: 03/19/17 12:42 Dose: 100 mls/hr Sodium Chloride (Sodium Chloride 0.9%) 1,000 mls @ 75 mls/hr IV .[id number] [facility] Last Admin: 03/19/17 17:42 Dose: 75 mls/hr Dexmedetomidine HCl 200 mcg/ (Sodium Chloride) 50 mls @ 3.27 mls/hr IV TITR PRN ; Protocol; 0.2 MCG/KG/HR PRN Reason: Agitation Last Titration: 03/19/17 11:01 Dose: 0.2 mcg/kg/hr, 3.27 mls/hr Levetiracetam 500 mg/ Sodium (Chloride) 105 mls @ 420 mls/hr IVPB Q12H [facility] Last Admin: 03/19/17 06:39 Dose: 420 mls/hr Scopolamine (Transderm-Scop) 1 patch TD Q3D [facility] Last Admin: 03/17/17 14:59 Dose: 1 patch Vancomycin HCl (Vancocin (Oral Or Rectal Use)) 250 mg PO Q6H [facility] Last Admin: 03/19/17 13:55 Dose: 250 mg - Labs Labs: 03/19/17 06:50 03/19/17 06:50 PT 12.0 SECONDS (9.7-12.2) 03/16/17 06:02 INR 1.1 03/16/17 06:02 APTT 33 SECONDS (21-34) 03/16/17 06:02 - Constitutional Appears: Well - Head Exam Head Exam: ATRAUMATIC, NORMAL INSPECTION, NORMOCEPHALIC - Eye Exam Eye Exam: EOMI, Normal appearance, PERRL Pupil Exam: NORMAL ACCOMODATION, PERRL - ENT Exam ENT Exam: Mucous Membranes Moist, Normal Exam - Respiratory Exam Respiratory Exam: Decreased Breath Sounds - Cardiovascular Exam Cardiovascular Exam: REGULAR RHYTHM, +S1, +S2 - GI/Abdominal Exam GI & Abdominal Exam: Soft, Diminished Bowel Sounds - Rectal Exam Rectal Exam: Deferred Assessment and Plan - Assessment and Plan (Free Text) Plan: Follow-up neurologist Follow-up ID Continue Keppra Continue antibiotic Continue folic acid Continue thiamine
--- NOTE | 2017-03-19 18:38 | CP.PCM.PN ---
Subjective - Date & Time of Evaluation Date of Evaluation: 03/19/17 Time of Evaluation: 18:38 - Subjective Subjective: Patient seen and examined No events overnight Still in ICU 1:1 observation Objective - Vital Signs/Intake and Output Vital Signs (last 24 hours): Temp Pulse Resp BP Pulse Ox 98.2 F 74 12 130/70 98 03/19/17 08:00 03/19/17 11:01 03/19/17 11:01 03/19/17 11:00 03/19/17 11:01 Intake and Output: 03/19/17 03/19/17 06:59 18:59 Intake Total 1180.4 724.6 Output Total 750 465 Balance 430.4 259.6 - Medications Medications: Current Medications Albuterol/Ipratropium (Duoneb 3 Mg/0.5 Mg (3 Ml) Ud) 3 ml INH RQ6 [facility] Last Admin: 03/19/17 13:09 Dose: 3 ml Chlordiazepoxide (Librium) 5 mg PO Q12 [facility] Last Admin: 03/19/17 10:57 Dose: 5 mg Enoxaparin Sodium (Lovenox) 40 mg SC DAILY [facility] Last Admin: 03/19/17 09:25 Dose: 40 mg Famotidine (Pepcid) 20 mg IVP DAILY [facility] Last Admin: 03/19/17 09:25 Dose: 20 mg Cefepime HCl 1 gm/ Dextrose 50 mls @ 100 mls/hr IVPB Q8H [facility] Stop: 03/24/17 11:00 Last Admin: 03/19/17 12:42 Dose: 100 mls/hr Sodium Chloride (Sodium Chloride 0.9%) 1,000 mls @ 75 mls/hr IV .[id number] [facility] Last Admin: 03/19/17 17:42 Dose: 75 mls/hr Dexmedetomidine HCl 200 mcg/ (Sodium Chloride) 50 mls @ 3.27 mls/hr IV TITR PRN ; Protocol; 0.2 MCG/KG/HR PRN Reason: Agitation Last Titration: 03/19/17 11:01 Dose: 0.2 mcg/kg/hr, 3.27 mls/hr Levetiracetam 500 mg/ Sodium (Chloride) 105 mls @ 420 mls/hr IVPB Q12H [facility] Last Admin: 03/19/17 06:39 Dose: 420 mls/hr Scopolamine (Transderm-Scop) 1 patch TD Q3D [facility] Last Admin: 03/17/17 14:59 Dose: 1 patch Vancomycin HCl (Vancocin (Oral Or Rectal Use)) 250 mg PO Q6H [facility] Last Admin: 03/19/17 13:55 Dose: 250 mg - Labs Labs: 03/19/17 06:50 03/19/17 06:50 PT 12.0 SECONDS (9.7-12.2) 03/16/17 06:02 INR 1.1 03/16/17 06:02 APTT 33 SECONDS (21-34) 03/16/17 06:02 - Head Exam Head Exam: NORMOCEPHALIC - Eye Exam Eye Exam: Normal appearance - ENT Exam ENT Exam: Mucous Membranes Moist - Respiratory Exam Respiratory Exam: Clear to Ausculation Bilateral - Cardiovascular Exam Cardiovascular Exam: REGULAR RHYTHM, +S1, +S2 - GI/Abdominal Exam GI & Abdominal Exam: Soft, Normal Bowel Sounds - Extremities Exam Extremities Exam: Normal Inspection Assessment and Plan - Assessment and Plan (Free Text) Assessment: Acute respiratory failure Pneumonia COPD Right mastoid fracture Subarachnoid hemorrhage Subdural hemorrhage Seizures History of alcohol abuse Continue antibiotic Bronchodilators Seizure prophylaxis Thiamine and folate Rest as per ICU management Continue supportive care DVT/GI prophylaxis
[2017-03-20] MEDS: Albuterol-Ipratrop 3 mg / 0.5 (3 ml) UD INH SCH ×4 (01:03→19:35)
[2017-03-20] MEDS: Vancomycin 125 MG/5 ML SOLN (ORAL/RECTAL) PO SCH ×4 (01:54→18:44)
[2017-03-20] MEDS: levETIRAcetam 500 MG in Sodium Chloride 0.9% 100 ML IVPB SCH ×2 (06:30→18:06)
[2017-03-20 06:32] LABS: BASO # 0.1 K/uL (0.0-0.2); BASO % 1.4 % (0.0-2.0); EOS # 0.3 K/uL (0.0-0.7); EOS % 4.9 % (0.0-4.0); HEMATOCRIT 30.1 % (35.0-51.0); LYMPH % 16.1 % (20.0-40.0); MEAN CELL VOLUME 79.5 fL (80.0-94.0); MEAN CORPUSCULAR HEMOGLOBIN 25.3 pg (27.0-31.0); MEAN CORPUSCULAR HGB CONC 31.9 g/dL (33.0-37.0); MEAN PLATELET VOLUME 8.5 fL (7.2-11.7); MONO # 0.6 K/uL (0.0-0.8); MONO % 8.9 % (0.0-10.0); RED CELL DISTRIBUTION WIDTH 19.2 % (11.5-14.5); WHITE BLOOD COUNT 6.3 K/uL (4.8-10.8)
[2017-03-20 06:48] LABS: CHLORIDE 91 mmol/L (98-107); POTASSIUM 3.9 mmol/L (3.6-5.2)
[2017-03-20 06:50] LABS: ALB/GLOB RATIO 0.9 (1.0-2.1); AST/SGOT 60 U/L (17-59); BILIRUBIN,TOTAL 0.8 mg/dL (0.2-1.3); CARBON DIOXIDE 30 mmol/L (22-30); GFR AFRICAN-AMERICAN > 60
[2017-03-20 06:51] LABS: ALKALINE PHOSPHATASE 159 U/L (38-126); ALT/SGPT 37 U/L (21-72); BLOOD UREA NITROGEN 9 mg/dL (9-20); CALCIUM 8.6 mg/dl (8.6-10.4); GLUCOSE,RANDOM 93 mg/dL (75-110); MAGNESIUM 1.3 mg/dL (1.6-2.3); PHOSPHOROUS 4.2 mg/dL (2.5-4.5)
[2017-03-20 06:53] LABS: SODIUM 129 mmol/L (132-148)
[2017-03-20] MEDS: Sodium Chloride 0.9% 1,000 ML IV SCH ×3 (07:00→22:12)
[2017-03-20] MEDS: Magnesium Sulfate 1 gm in D5W 1 GM/100 ML BAG IVPB SCH ×4 (07:48→11:47)
--- NOTE | 2017-03-20 08:54 | CP.CCUPN ---
<Matthew Melo - Last Filed: 03/20/17 09:51> CCU Subjective - Physician Review Subjective (Free Text): 03/20/17 08:51 PGY-1 ICU progress note Pt seen and examined at bedside. No overnight events. Pt on 1:1 now after he attempted to get out of bed yesterday evening. Pt is still drowsy, on low dose precedex drip, but responds to verbal cues. Critical Care Time Spent (in minutes): 35 CCU Objective - Vital Signs / Intake & Output Intake and Output (Last 8hrs): Intake & Output 03/19/17 03/20/17 03/20/17 22:59 06:59 14:59 Intake Total 653.6 639.2 79.9 Output Total 400 800 Balance 253.6 -160.8 79.9 Intake: IV 18 Intake, IV Amount 635.6 639.2 79.9 Left Forearm 600 600 75 side port left fforearm 35.6 39.2 4.9 Output: Urine 400 800 Condom 400 800 Other: # Voids Condom 1 - Physical Exam Head: Positive for: Normocephalic Pupils: Positive for: PERRL Extroacular Muscles: Positive for: EOMI Mouth: Positive for: Moist Mucous Membranes Respiratory/Chest: Positive for: Clear to Auscultation, Good Air Exchange. Negative for: Respiratory Distress Cardiovascular: Positive for: Regular Rate and Rhythm, Normal S1, S2 Abdomen: Positive for: Normal Bowel Sounds. Negative for: Tenderness, Distention Upper Extremity: Positive for: NORMAL PULSES, Neurovascularly Intact Lower Extremity: Positive for: NORMAL PULSES, Neurovascularly Intact Neurological: Positive for: Other (Drowsy on precedec drip) Skin: Positive for: Warm, Dry Psychiatric: Positive for: Alert. Negative for: Oriented x 3, Normal Insight - Medications Active Medications: Active Medications Generic Name Dose Route Start Last Admin Trade Name Freq PRN Reason Stop Dose Admin Albuterol/Ipratropium 3 ml 03/11/17 20:00 03/20/17 07:35 Duoneb 3 Mg/0.5 Mg (3 Ml) Ud INH 3 ml RQ6 JÚNIOR Administration Chlordiazepoxide 5 mg 03/19/17 10:15 03/19/17 21:09 Librium PO 5 mg Q12 JÚNIOR Administration Enoxaparin Sodium 40 mg 03/16/17 10:00 03/19/17 09:25 Lovenox SC 40 mg DAILY JÚNIOR Administration Famotidine 20 mg 03/19/17 10:00 03/19/17 09:25 Pepcid IVP 20 mg DAILY JÚNIOR Administration Cefepime HCl 1 gm/ Dextrose 50 mls @ 100 mls/hr 03/09/17 21:00 03/20/17 06:00 IVPB 03/24/17 11:00 100 mls/hr Q8H JÚNIOR Administration Sodium Chloride 1,000 mls @ 75 mls/hr 03/18/17 14:15 03/19/17 17:42 Sodium Chloride 0.9% IV 75 mls/hr .[id number] JÚNIOR Administration Dexmedetomidine HCl 200 mcg/ 50 mls @ 3.27 mls/hr 03/18/17 16:41 03/19/17 21: 00 Sodium Chloride IV 0.2 mcg/kg/hr TITR PRN 3.27 mls/hr Agitation Administration Protocol 0.2 MCG/KG/HR Levetiracetam 500 mg/ Sodium 105 mls @ 420 mls/hr 03/18/17 19:00 03/20/17 06: 30 Chloride IVPB 420 mls/hr Q12H JÚNIOR Administration Scopolamine 1 patch 03/17/17 14:00 03/17/17 14:59 Transderm-Scop TD 1 patch Q3D JÚNIOR Administration Vancomycin HCl 250 mg 03/19/17 13:30 03/20/17 07:50 Vancocin (Oral Or Rectal Use) PO 250 mg Q6H JÚNIOR Administration - Patient Studies Lab Studies: Lab Studies 03/20/17 03/20/17 Range/Units 06:24 06:24 WBC 6.3 (4.8-10.8) K/uL RBC 3.78 L (4.40-5.90) Mil/uL Hgb 9.6 L (12.0-18.0) g/dL Hct 30.1 L (35.0-51.0) % MCV 79.5 L (80.0-94.0) fL MCH 25.3 L (27.0-31.0) pg MCHC 31.9 L (33.0-37.0) g/dL RDW 19.2 H (11.5-14.5) % Plt Count 334 (130-400) K/uL MPV 8.5 (7.2-11.7) fL Neut % (Auto) 68.7 (50.0-75.0) % Lymph % (Auto) 16.1 L (20.0-40.0) % Gray % (Auto) 8.9 (0.0-10.0) % Eos % (Auto) 4.9 H (0.0-4.0) % Baso % (Auto) 1.4 (0.0-2.0) % Neut # 4.3 (1.8-7.0) K/uL Lymph # 1.0 (1.0-4.3) K/uL Gray # 0.6 (0.0-0.8) K/uL Eos # 0.3 (0.0-0.7) K/uL Baso # 0.1 (0.0-0.2) K/uL Sodium 129 L (132-148) mmol/L Potassium 3.9 (3.6-5.2) mmol/L Chloride 91 L (98-107) mmol/L Carbon Dioxide 30 (22-30) mmol/L Anion Gap 12 (10-20) BUN 9 (9-20) mg/dL Creatinine 0.5 L (0.8-1.5) MG/DL Est GFR ( Amer) > 60 Est GFR (Non-Af Amer) > 60 Random Glucose 93 (75-110) mg/dL Calcium 8.6 (8.6-10.4) mg/dl Phosphorus 4.2 (2.5-4.5) mg/dL Magnesium 1.3 L (1.6-2.3) mg/dL Total Bilirubin 0.8 (0.2-1.3) mg/dL AST 60 H D (17-59) U/L ALT 37 (21-72) U/L Alkaline Phosphatase 159 H (38-126) U/L Total Protein 7.0 (6.3-8.3) g/dL Albumin 3.3 L (3.5-5.0) g/dL Globulin 3.7 (2.2-3.9) gm/dL Albumin/Globulin Ratio 0.9 L (1.0-2.1) Laboratory Results - last 24 hr 03/20/17 03/20/17 06:24 06:24 WBC 6.3 RBC 3.78 L Hgb 9.6 L Hct 30.1 L MCV 79.5 L MCH 25.3 L MCHC 31.9 L RDW 19.2 H Plt Count 334 MPV 8.5 Neut % (Auto) 68.7 Lymph % (Auto) 16.1 L Gray % (Auto) 8.9 Eos % (Auto) 4.9 H Baso % (Auto) 1.4 Neut # 4.3 Lymph # 1.0 Gray # 0.6 Eos # 0.3 Baso # 0.1 Sodium 129 L Potassium 3.9 Chloride 91 L Carbon Dioxide 30 Anion Gap 12 BUN 9 Creatinine 0.5 L Est GFR ( Amer) > 60 Est GFR (Non-Af Amer) > 60 Random Glucose 93 Calcium 8.6 Phosphorus 4.2 Magnesium 1.3 L Total Bilirubin 0.8 AST 60 H D ALT 37 Alkaline Phosphatase 159 H Total Protein 7.0 Albumin 3.3 L Globulin 3.7 Albumin/Globulin Ratio 0.9 L Review of Systems - Review of Systems Systems not reviewed;Unavailable: Acuity of Condition Assessment/Plan - Assessment and Plan (Free Text) Assessment: This is a 51 yo M with PMH of Etoh abuse admitted with R mastoid fracture, small subarachnoid and subdural hemorrhage, complicated by seizure secondary to Etoh withdrawal vs brain hemorrhage. Pt now being treated for pneumonia, extubated on 03/18, tolerating well. Plan: Neuro: Sedated with precedex. Arousable Keppra 500mg q12 IV Alcohol W/D Librium 5mg PO Q12H Folic acid/thiamine/MV PO Cardiovascular: Normotensive Hemodynamically stale Cardiac Stable Pulmonary: Extubated on 03/18, tolerating well Being treated for pneumonia with CXR showing a confluent opacity at the right lung base. On cefepime till 03/24 Secretions - started on scopalamine patch Sputum cultures to be collected Gastrointestinal: Pending swallow eval EtOH cirrhosis C diff now negative, will repeat Vancomycin 250mg PO q6 (start 03/15) Hematology: chronic anemia, stable Endocrine: No acute issues Renal: Mild hyponatremia - 129 on AM labs Hypomagnesemia, repleted Monitor Musculoskeletal: No ulcers notes Genitourinary: No issues Infectious Disease: Cefepime 1g IV q8 (start 03/09) Vancomycin 250mg PO q6 (start 03/15) Psych: Anxiety Xanax .25mg PO daily GI Prophylaxis: Protonix 40mg IV daily DVT Prophylaxis: Lovenox 40mg SC Daily <Robert Albert S - Last Filed: 03/20/17 17:00> CCU Objective - Vital Signs / Intake & Output Vital Signs (Last 4 hours): Vital Signs Pulse Resp BP Pulse Ox 03/20/17 14:00 75 15 123/73 03/20/17 13:00 72 15 123/75 96 Intake and Output (Last 8hrs): Intake & Output 03/20/17 03/20/17 03/20/17 06:59 14:59 22:59 Intake Total 639.2 841.5 Output Total 800 700 Balance -160.8 141.5 Weight 147 lb Intake: IV 50 Intake, IV Amount 639.2 731.5 Left Forearm 600 700 side port left fforearm 39.2 31.5 Oral 60 Output: Urine 800 700 Condom 800 700 Other: # Voids Condom 1 - Medications Active Medications: Active Medications Generic Name Dose Route Start Last Admin Trade Name Freq PRN Reason Stop Dose Admin Albuterol/Ipratropium 3 ml 03/11/17 20:00 03/20/17 13:20 Duoneb 3 Mg/0.5 Mg (3 Ml) Ud INH 3 ml RQ6 JÚNIOR Administration Chlordiazepoxide 5 mg 03/19/17 10:15 03/20/17 09:56 Librium PO 5 mg Q12 JÚNIOR Administration Enoxaparin Sodium 40 mg 03/16/17 10:00 03/20/17 09:55 Lovenox SC 40 mg DAILY JÚNIOR Administration Famotidine 20 mg 03/19/17 10:00 03/20/17 09:55 Pepcid IVP 20 mg DAILY JÚNIOR Administration Cefepime HCl 1 gm/ Dextrose 50 mls @ 100 mls/hr 03/09/17 21:00 03/20/17 13:03 IVPB 03/24/17 11:00 100 mls/hr Q8H JÚNIOR Administration Sodium Chloride 1,000 mls @ 75 mls/hr 03/18/17 14:15 03/20/17 10:03 Sodium Chloride 0.9% IV 75 mls/hr .[id number] JÚNIOR Administration Dexmedetomidine HCl 200 mcg/ 50 mls @ 3.27 mls/hr 03/18/17 16:41 03/20/17 09: 59 Sodium Chloride IV 0.2 mcg/kg/hr TITR PRN 3.27 mls/hr Agitation Administration Protocol 0.2 MCG/KG/HR Levetiracetam 500 mg/ Sodium 105 mls @ 420 mls/hr 03/18/17 19:00 03/20/17 06: 30 Chloride IVPB 420 mls/hr Q12H JÚNIOR Administration Scopolamine 1 patch 03/17/17 14:00 03/20/17 13:29 Transderm-Scop TD 1 patch Q3D JÚNIOR Administration Vancomycin HCl 250 mg 03/19/17 13:30 03/20/17 13:08 Vancocin (Oral Or Rectal Use) PO 250 mg Q6H JÚNIOR Administration - Patient Studies Lab Studies: Lab Studies 03/20/17 03/20/17 Range/Units 06:24 06:24 WBC 6.3 (4.8-10.8) K/uL RBC 3.78 L (4.40-5.90) Mil/uL Hgb 9.6 L (12.0-18.0) g/dL Hct 30.1 L (35.0-51.0) % MCV 79.5 L (80.0-94.0) fL MCH 25.3 L (27.0-31.0) pg MCHC 31.9 L (33.0-37.0) g/dL RDW 19.2 H (11.5-14.5) % Plt Count 334 (130-400) K/uL MPV 8.5 (7.2-11.7) fL Neut % (Auto) 68.7 (50.0-75.0) % Lymph % (Auto) 16.1 L (20.0-40.0) % Gray % (Auto) 8.9 (0.0-10.0) % Eos % (Auto) 4.9 H (0.0-4.0) % Baso % (Auto) 1.4 (0.0-2.0) % Neut # 4.3 (1.8-7.0) K/uL Lymph # 1.0 (1.0-4.3) K/uL Gray # 0.6 (0.0-0.8) K/uL Eos # 0.3 (0.0-0.7) K/uL Baso # 0.1 (0.0-0.2) K/uL Sodium 129 L (132-148) mmol/L Potassium 3.9 (3.6-5.2) mmol/L Chloride 91 L (98-107) mmol/L Carbon Dioxide 30 (22-30) mmol/L Anion Gap 12 (10-20) BUN 9 (9-20) mg/dL Creatinine 0.5 L (0.8-1.5) MG/DL Est GFR ( Amer) > 60 Est GFR (Non-Af Amer) > 60 Random Glucose 93 (75-110) mg/dL Calcium 8.6 (8.6-10.4) mg/dl Phosphorus 4.2 (2.5-4.5) mg/dL Magnesium 1.3 L (1.6-2.3) mg/dL Total Bilirubin 0.8 (0.2-1.3) mg/dL AST 60 H D (17-59) U/L ALT 37 (21-72) U/L Alkaline Phosphatase 159 H (38-126) U/L Total Protein 7.0 (6.3-8.3) g/dL Albumin 3.3 L (3.5-5.0) g/dL Globulin 3.7 (2.2-3.9) gm/dL Albumin/Globulin Ratio 0.9 L (1.0-2.1) Laboratory Results - last 24 hr 03/20/17 03/20/17 06:24 06:24 WBC 6.3 RBC 3.78 L Hgb 9.6 L Hct 30.1 L MCV 79.5 L MCH 25.3 L MCHC 31.9 L RDW 19.2 H Plt Count 334 MPV 8.5 Neut % (Auto) 68.7 Lymph % (Auto) 16.1 L Gray % (Auto) 8.9 Eos % (Auto) 4.9 H Baso % (Auto) 1.4 Neut # 4.3 Lymph # 1.0 Gray # 0.6 Eos # 0.3 Baso # 0.1 Sodium 129 L Potassium 3.9 Chloride 91 L Carbon Dioxide 30 Anion Gap 12 BUN 9 Creatinine 0.5 L Est GFR ( Amer) > 60 Est GFR (Non-Af Amer) > 60 Random Glucose 93 Calcium 8.6 Phosphorus 4.2 Magnesium 1.3 L Total Bilirubin 0.8 AST 60 H D ALT 37 Alkaline Phosphatase 159 H Total Protein 7.0 Albumin 3.3 L Globulin 3.7 Albumin/Globulin Ratio 0.9 L Critical Care Progress Note - Nutrition Nutrition: Nutrition Category Date Time Status Dysphagia/Modified Consistency Diet [DIET] Diets 03/20/17 Dinner Active Attending/Attestation - Attestation I have personally seen and examined this patient.: Yes I have fully participated in the care of the patient.: Yes I have reviewed all pertinent clinical information: Yes Notes (Text): 03/20/17 16:58 Patient seen and examined in the intensive care unit. Case discussed with house staff in the morning rounds. remains on Precedex drip Continue antibiotics for pneumonia Magnesium supplements Swallowing evaluation
[2017-03-20] MEDS: Enoxaparin 40 mg Syringe SC SCH (09:55)
[2017-03-20] MEDS: Dexmedetomidine Hydrochloride 200 MCG in Sodium Chloride 0.9% 48 ML IV PRN (09:59)
[2017-03-20] MEDS ORDERED: Magnesium Sulfate 1 gm in D5W 1 GM/100 ML BAG IVPB ONE (11:32)
--- NOTE | 2017-03-20 13:39 | CP.PCM.PN ---
Subjective - Date & Time of Evaluation Date of Evaluation: 03/20/17 Time of Evaluation: 13:39 - Subjective Subjective: Patient seen and examined No events overnight Awake and responds Objective - Vital Signs/Intake and Output Vital Signs (last 24 hours): Temp Pulse Resp BP Pulse Ox 97 F L 65 16 116/63 99 03/20/17 12:00 03/20/17 12:00 03/20/17 12:00 03/20/17 12:00 03/20/17 12:00 Intake and Output: 03/20/17 03/20/17 06:59 18:59 Intake Total 976.8 599.9 Output Total 1200 700 Balance -223.2 -100.1 - Medications Medications: Current Medications Albuterol/Ipratropium (Duoneb 3 Mg/0.5 Mg (3 Ml) Ud) 3 ml INH RQ6 [facility] [place] Last Admin: 03/20/17 13:20 Dose: 3 ml Chlordiazepoxide (Librium) 5 mg PO Q12 [facility] [place] Last Admin: 03/20/17 09:56 Dose: 5 mg Enoxaparin Sodium (Lovenox) 40 mg SC DAILY [facility] [place] Last Admin: 03/20/17 09:55 Dose: 40 mg Famotidine (Pepcid) 20 mg IVP DAILY [facility] [place] Last Admin: 03/20/17 09:55 Dose: 20 mg Cefepime HCl 1 gm/ Dextrose 50 mls @ 100 mls/hr IVPB Q8H [facility] [place] Stop: 03/24/17 11:00 Last Admin: 03/20/17 13:03 Dose: 100 mls/hr Sodium Chloride (Sodium Chloride 0.9%) 1,000 mls @ 75 mls/hr IV .[id number] [facility] [place] Last Admin: 03/20/17 10:03 Dose: 75 mls/hr Dexmedetomidine HCl 200 mcg/ (Sodium Chloride) 50 mls @ 3.27 mls/hr IV TITR PRN ; Protocol; 0.2 MCG/KG/HR PRN Reason: Agitation Last Admin: 03/20/17 09:59 Dose: 0.2 mcg/kg/hr, 3.27 mls/hr Levetiracetam 500 mg/ Sodium (Chloride) 105 mls @ 420 mls/hr IVPB Q12H [facility] [place] Last Admin: 03/20/17 06:30 Dose: 420 mls/hr Scopolamine (Transderm-Scop) 1 patch TD Q3D [facility] [place] Last Admin: 03/20/17 13:29 Dose: 1 patch Vancomycin HCl (Vancocin (Oral Or Rectal Use)) 250 mg PO Q6H [facility] [place] Last Admin: 03/20/17 13:08 Dose: 250 mg - Labs Labs: 03/20/17 06:24 03/20/17 06:24 PT 12.0 SECONDS (9.7-12.2) 03/16/17 06:02 INR 1.1 03/16/17 06:02 APTT 33 SECONDS (21-34) 03/16/17 06:02 - Head Exam Head Exam: NORMOCEPHALIC - Eye Exam Eye Exam: Normal appearance - ENT Exam ENT Exam: Mucous Membranes Moist - Respiratory Exam Respiratory Exam: Rhonchi - Cardiovascular Exam Cardiovascular Exam: REGULAR RHYTHM, +S1, +S2 - GI/Abdominal Exam GI & Abdominal Exam: Soft, Normal Bowel Sounds - Extremities Exam Extremities Exam: Normal Inspection Assessment and Plan - Assessment and Plan (Free Text) Assessment: Acute respiratory failure Pneumonia COPD Right mastoid fracture Subarachnoid hemorrhage Subdural hemorrhage Seizures History of alcohol abuse Continue antibiotic Bronchodilators Seizure prophylaxis Thiamine and folate Rest as per ICU management DVT/GI prophylaxis
--- NOTE | 2017-03-20 14:11 | CP.PCM.PN ---
Subjective - Date & Time of Evaluation Date of Evaluation: 03/20/17 Time of Evaluation: 13:00 - Subjective Subjective: clinically same Objective - Vital Signs/Intake and Output Vital Signs (last 24 hours): Temp Pulse Resp BP Pulse Ox 97 F L 65 16 116/63 99 03/20/17 12:00 03/20/17 12:00 03/20/17 12:00 03/20/17 12:00 03/20/17 12:00 Intake and Output: 03/20/17 03/20/17 06:59 18:59 Intake Total 976.8 599.9 Output Total 1200 700 Balance -223.2 -100.1 - Medications Medications: Current Medications Albuterol/Ipratropium (Duoneb 3 Mg/0.5 Mg (3 Ml) Ud) 3 ml INH RQ6 [facility] Last Admin: 03/20/17 13:20 Dose: 3 ml Chlordiazepoxide (Librium) 5 mg PO Q12 [facility] Last Admin: 03/20/17 09:56 Dose: 5 mg Enoxaparin Sodium (Lovenox) 40 mg SC DAILY [facility] Last Admin: 03/20/17 09:55 Dose: 40 mg Famotidine (Pepcid) 20 mg IVP DAILY [facility] Last Admin: 03/20/17 09:55 Dose: 20 mg Cefepime HCl 1 gm/ Dextrose 50 mls @ 100 mls/hr IVPB Q8H [facility] Stop: 03/24/17 11:00 Last Admin: 03/20/17 13:03 Dose: 100 mls/hr Sodium Chloride (Sodium Chloride 0.9%) 1,000 mls @ 75 mls/hr IV .[id number] [facility] Last Admin: 03/20/17 10:03 Dose: 75 mls/hr Dexmedetomidine HCl 200 mcg/ (Sodium Chloride) 50 mls @ 3.27 mls/hr IV TITR PRN ; Protocol; 0.2 MCG/KG/HR PRN Reason: Agitation Last Admin: 03/20/17 09:59 Dose: 0.2 mcg/kg/hr, 3.27 mls/hr Levetiracetam 500 mg/ Sodium (Chloride) 105 mls @ 420 mls/hr IVPB Q12H [facility] Last Admin: 03/20/17 06:30 Dose: 420 mls/hr Scopolamine (Transderm-Scop) 1 patch TD Q3D [facility] Last Admin: 03/20/17 13:29 Dose: 1 patch Vancomycin HCl (Vancocin (Oral Or Rectal Use)) 250 mg PO Q6H [facility] Last Admin: 03/20/17 13:08 Dose: 250 mg - Labs Labs: 03/20/17 06:24 03/20/17 06:24 PT 12.0 SECONDS (9.7-12.2) 03/16/17 06:02 INR 1.1 03/16/17 06:02 APTT 33 SECONDS (21-34) 03/16/17 06:02 - Constitutional Appears: Well - Head Exam Head Exam: ATRAUMATIC, NORMAL INSPECTION, NORMOCEPHALIC - Eye Exam Eye Exam: EOMI, Normal appearance, PERRL Pupil Exam: NORMAL ACCOMODATION, PERRL - ENT Exam ENT Exam: Mucous Membranes Moist, Normal Exam - Neck Exam Neck Exam: Full ROM, Normal Inspection. absent: Lymphadenopathy - Respiratory Exam Respiratory Exam: Decreased Breath Sounds - Cardiovascular Exam Cardiovascular Exam: REGULAR RHYTHM, +S1, +S2 - GI/Abdominal Exam GI & Abdominal Exam: Soft, Diminished Bowel Sounds - Rectal Exam Rectal Exam: Deferred Assessment and Plan - Assessment and Plan (Free Text) Plan: Follow-up neurologist Follow ID Continue Keppra Continue antibiotic Continue thiamine Continue folic acid Continue Protonix
[2017-03-21] MEDS: Albuterol-Ipratrop 3 mg / 0.5 (3 ml) UD INH SCH ×4 (01:20→19:51)
[2017-03-21] MEDS: Dexmedetomidine Hydrochloride 200 MCG in Sodium Chloride 0.9% 48 ML IV PRN (02:00)
[2017-03-21] MEDS: Vancomycin 125 MG/5 ML SOLN (ORAL/RECTAL) PO SCH ×4 (02:30→18:32)
[2017-03-21] MEDS: Sodium Chloride 0.9% 1,000 ML IV SCH ×2 (05:00→09:22)
[2017-03-21] MEDS: levETIRAcetam 500 MG in Sodium Chloride 0.9% 100 ML IVPB SCH ×2 (06:45→18:13)
[2017-03-21 07:00] LABS: BASO # 0.1 K/uL (0.0-0.2); BASO % 1.8 % (0.0-2.0); EOS # 0.3 K/uL (0.0-0.7); HEMATOCRIT 32.1 % (35.0-51.0); LYMPH # 1.4 K/uL (1.0-4.3); LYMPH % 26.2 % (20.0-40.0); MEAN CELL VOLUME 79.6 fL (80.0-94.0); MEAN CORPUSCULAR HEMOGLOBIN 25.1 pg (27.0-31.0); MEAN CORPUSCULAR HGB CONC 31.6 g/dL (33.0-37.0); MEAN PLATELET VOLUME 8.4 fL (7.2-11.7); MONO # 0.5 K/uL (0.0-0.8); MONO % 9.4 % (0.0-10.0); RED CELL DISTRIBUTION WIDTH 19.4 % (11.5-14.5); WHITE BLOOD COUNT 5.3 K/uL (4.8-10.8)
[2017-03-21 07:18] LABS: CHLORIDE 94 mmol/L (98-107); POTASSIUM 3.8 mmol/L (3.6-5.2); SODIUM 134 mmol/L (132-148)
[2017-03-21 07:20] LABS: AST/SGOT 48 U/L (17-59); BILIRUBIN,TOTAL 0.6 mg/dL (0.2-1.3); CARBON DIOXIDE 30 mmol/L (22-30); GFR AFRICAN-AMERICAN > 60
[2017-03-21 07:21] LABS: ALB/GLOB RATIO 0.8 (1.0-2.1); ALKALINE PHOSPHATASE 177 U/L (38-126); ALT/SGPT 45 U/L (21-72); BLOOD UREA NITROGEN 5 mg/dL (9-20); CALCIUM 8.9 mg/dl (8.6-10.4); GLUCOSE,RANDOM 122 mg/dL (75-110); MAGNESIUM 1.5 mg/dL (1.6-2.3); TOTAL PROTEIN 7.4 g/dL (6.3-8.3)
[2017-03-21] MEDS: Magnesium Sulfate 1 gm in D5W 1 GM/100 ML BAG IVPB SCH ×2 (08:36→09:21)
[2017-03-21] MEDS: Enoxaparin 40 mg Syringe SC SCH (09:21)
--- NOTE | 2017-03-21 10:45 | CP.PCM.PN ---
Subjective - Date & Time of Evaluation Date of Evaluation: 03/21/17 Time of Evaluation: 16:00 - Subjective Subjective: clinically same Objective - Vital Signs/Intake and Output Vital Signs (last 24 hours): Temp Pulse Resp BP Pulse Ox 97 F L 80 16 113/69 98 03/20/17 12:00 03/20/17 17:00 03/20/17 17:00 03/20/17 17:00 03/20/17 16:45 Intake and Output: 03/21/17 03/21/17 06:59 18:59 Intake Total 1144.9 683.1 Output Total 2150 Balance -1005.1 683.1 - Medications Medications: Current Medications Albuterol/Ipratropium (Duoneb 3 Mg/0.5 Mg (3 Ml) Ud) 3 ml INH RQ6 [facility] Last Admin: 03/21/17 07:39 Dose: 3 ml Chlordiazepoxide (Librium) 5 mg PO Q12 [facility] Last Admin: 03/21/17 09:21 Dose: 5 mg Enoxaparin Sodium (Lovenox) 40 mg SC DAILY [facility] Last Admin: 03/21/17 09:21 Dose: 40 mg Famotidine (Pepcid) 20 mg IVP DAILY [facility] Last Admin: 03/21/17 09:21 Dose: 20 mg Famotidine (Pepcid) 20 mg PO BID [facility] Cefepime HCl 1 gm/ Dextrose 50 mls @ 100 mls/hr IVPB Q8H [facility] Stop: 03/24/17 11:00 Last Admin: 03/21/17 04:20 Dose: 100 mls/hr Levetiracetam 500 mg/ Sodium (Chloride) 105 mls @ 420 mls/hr IVPB Q12H [facility] Last Admin: 03/21/17 06:45 Dose: 420 mls/hr Lorazepam (Ativan) 1 mg IVP Q6H PRN PRN Reason: Anxiety Scopolamine (Transderm-Scop) 1 patch TD Q3D [facility] Last Admin: 03/20/17 13:29 Dose: 1 patch Vancomycin HCl (Vancocin (Oral Or Rectal Use)) 250 mg PO Q6H [facility] Last Admin: 03/21/17 08:16 Dose: 250 mg - Labs Labs: 03/21/17 06:34 03/21/17 06:34 PT 12.0 SECONDS (9.7-12.2) 03/16/17 06:02 INR 1.1 03/16/17 06:02 APTT 33 SECONDS (21-34) 03/16/17 06:02 - Constitutional Appears: Well - Head Exam Head Exam: ATRAUMATIC, NORMAL INSPECTION, NORMOCEPHALIC - Eye Exam Eye Exam: EOMI, Normal appearance, PERRL Pupil Exam: NORMAL ACCOMODATION, PERRL - ENT Exam ENT Exam: Mucous Membranes Moist, Normal Exam - Neck Exam Neck Exam: Full ROM, Normal Inspection. absent: Lymphadenopathy - Respiratory Exam Respiratory Exam: Decreased Breath Sounds - Cardiovascular Exam Cardiovascular Exam: REGULAR RHYTHM, +S1, +S2 - GI/Abdominal Exam GI & Abdominal Exam: Soft, Diminished Bowel Sounds - Rectal Exam Rectal Exam: Deferred Assessment and Plan - Assessment and Plan (Free Text) Plan: Follow-up neurologist Follow-up IV Continue antibiotic Continue Keppra Continue thiamine Continue folic acid Continue Protonix
--- NOTE | 2017-03-21 13:22 | CP.CCUPN ---
<Matthew Melo - Last Filed: 03/21/17 13:15> CCU Subjective - Physician Review Subjective (Free Text): 03/21/17 13:15 PGY-1 ICU progress note Pt seen and examined at bedside. Pt awake and alert this morning. He states that he feels "ok" and has no complaints. Denies any fevers, chills, chest pain , sob, nausea or vomiting. He admits to a productive cough. Critical Care Time Spent (in minutes): 35 CCU Objective - Vital Signs / Intake & Output Intake and Output (Last 8hrs): Intake & Output 03/20/17 03/21/17 03/21/17 22:59 06:59 14:59 Intake Total 1221.3 801.8 683.1 Output Total 1100 1300 Balance 121.3 -498.2 683.1 Weight 148 lb Intake: IV 50 0 Intake, IV Amount 631.3 751.8 163.1 Left Forearm 600 675 150 side port left fforearm 31.3 76.8 13.1 Oral 590 520 Output: Urine 900 1300 Condom 900 1300 Stool 200 - Physical Exam Head: Positive for: Normocephalic Pupils: Positive for: PERRL Extroacular Muscles: Positive for: EOMI Mouth: Positive for: Moist Mucous Membranes Respiratory/Chest: Positive for: Clear to Auscultation, Good Air Exchange. Negative for: Respiratory Distress Cardiovascular: Positive for: Regular Rate and Rhythm, Normal S1, S2 Abdomen: Positive for: Normal Bowel Sounds. Negative for: Tenderness, Distention Upper Extremity: Positive for: NORMAL PULSES, Neurovascularly Intact Lower Extremity: Positive for: NORMAL PULSES, Neurovascularly Intact Neurological: Positive for: Other (Drowsy on precedec drip) Skin: Positive for: Warm, Dry Psychiatric: Positive for: Alert. Negative for: Oriented x 3, Normal Insight - Medications Active Medications: Active Medications Generic Name Dose Route Start Last Admin Trade Name Freq PRN Reason Stop Dose Admin Albuterol/Ipratropium 3 ml 03/11/17 20:00 03/21/17 07:39 Duoneb 3 Mg/0.5 Mg (3 Ml) Ud INH 3 ml RQ6 [facility] Administration Chlordiazepoxide 5 mg 03/19/17 10:15 03/21/17 09:21 Librium PO 5 mg Q12 [facility] Administration Enoxaparin Sodium 40 mg 05/12/17 10:00 03/21/17 09:21 Lovenox SC 40 mg DAILY [facility] Administration Famotidine 20 mg 03/19/17 10:00 03/21/17 09:21 Pepcid IVP 20 mg DAILY [facility] Administration Famotidine 20 mg 03/21/17 10:00 03/21/17 12:44 Pepcid PO Not Given BID [facility] Cefepime HCl 1 gm/ Dextrose 50 mls @ 100 mls/hr 03/09/17 21:00 03/21/17 12:58 IVPB 03/24/17 11:00 100 mls/hr Q8H [facility] Administration Levetiracetam 500 mg/ Sodium 105 mls @ 420 mls/hr 03/18/17 19:00 03/21/17 06: 45 Chloride IVPB 420 mls/hr Q12H [facility] Administration Lorazepam 1 mg 03/21/17 10:45 Ativan IVP Q6H PRN Anxiety Scopolamine 1 patch 03/17/17 14:00 03/20/17 13:29 Transderm-Scop TD 1 patch Q3D [facility] Administration Vancomycin HCl 250 mg 03/19/17 13:30 03/21/17 12:58 Vancocin (Oral Or Rectal Use) PO 250 mg Q6H [facility] Administration - Patient Studies Lab Studies: Microbiology Studies 03/20/17 09:22 Gram Stain - Final Sputum Sputum Culture - Preliminary Gram Negative [facility] Studies 03/21/17 03/21/17 03/20/17 Range/Units 06:34 06:34 20:19 WBC 5.3 (4.8-10.8) K/uL RBC 4.04 L (4.40-5.90) Mil/uL Hgb 10.1 L (12.0-18.0) g/dL Hct 32.1 L (35.0-51.0) % MCV 79.6 L (80.0-94.0) fL MCH 25.1 L (27.0-31.0) pg MCHC 31.6 L (33.0-37.0) g/dL RDW 19.4 H (11.5-14.5) % Plt Count 453 H D (130-400) K/uL MPV 8.4 (7.2-11.7) fL Neut % (Auto) 56.6 (50.0-75.0) % Lymph % (Auto) 26.2 (20.0-40.0) % [place] % (Auto) 9.4 (0.0-10.0) % Eos % (Auto) 6.0 H (0.0-4.0) % Baso % (Auto) 1.8 (0.0-2.0) % Neut # 3.0 (1.8-7.0) K/uL Lymph # 1.4 (1.0-4.3) K/uL [place] # 0.5 (0.0-0.8) K/uL Eos # 0.3 (0.0-0.7) K/uL Baso # 0.1 (0.0-0.2) K/uL Sodium 134 (132-148) mmol/L Potassium 3.8 (3.6-5.2) mmol/L Chloride 94 L (98-107) mmol/L Carbon Dioxide 30 (22-30) mmol/L Anion Gap 14 (10-20) BUN 5 L (9-20) mg/dL Creatinine 0.5 L (0.8-1.5) MG/DL Est GFR ( Amer) > 60 Est GFR (Non-Af Amer) > 60 Random Glucose 122 H (75-110) mg/dL Calcium 8.9 (8.6-10.4) mg/dl Phosphorus 4.0 (2.5-4.5) mg/dL Magnesium 1.5 L (1.6-2.3) mg/dL Total Bilirubin 0.6 (0.2-1.3) mg/dL AST 48 (17-59) U/L ALT 45 (21-72) U/L Alkaline Phosphatase 177 H (38-126) U/L Total Protein 7.4 (6.3-8.3) g/dL Albumin 3.3 L (3.5-5.0) g/dL Globulin 4.1 H (2.2-3.9) gm/dL Albumin/Globulin Ratio 0.8 L (1.0-2.1) C. difficile Ag & Toxin Positive H (NEGATIVE) Laboratory Results - last 24 hr 03/20/17 03/21/17 03/21/17 20:19 06:34 06:34 WBC 5.3 RBC 4.04 L Hgb 10.1 L Hct 32.1 L MCV 79.6 L MCH 25.1 L MCHC 31.6 L RDW 19.4 H Plt Count 453 H D MPV 8.4 Neut % (Auto) 56.6 Lymph % (Auto) 26.2 [place] % (Auto) 9.4 Eos % (Auto) 6.0 H Baso % (Auto) 1.8 Neut # 3.0 Lymph # 1.4 [place] # 0.5 Eos # 0.3 Baso # 0.1 Sodium 134 Potassium 3.8 Chloride 94 L Carbon Dioxide 30 Anion Gap 14 BUN 5 L Creatinine 0.5 L Est GFR ( Amer) > 60 Est GFR (Non-Af Amer) > 60 Random Glucose 122 H Calcium 8.9 Phosphorus 4.0 Magnesium 1.5 L Total Bilirubin 0.6 AST 48 ALT 45 Alkaline Phosphatase 177 H Total Protein 7.4 Albumin 3.3 L Globulin 4.1 H Albumin/Globulin Ratio 0.8 L C. difficile Ag & Toxin Positive H Review of Systems - Review of Systems All systems: reviewed and no additional remarkable complaints except (where noted in the HPI) Critical Care Progress Note - Nutrition Nutrition: Nutrition Category Date Time Status Dysphagia/Modified Consistency Diet [DIET] Diets 03/20/17 Dinner Active Assessment/Plan - Assessment and Plan (Free Text) Assessment: This is a 51 yo M with PMH of Etoh abuse admitted with R mastoid fracture, small subarachnoid and subdural hemorrhage, complicated by seizure secondary to Etoh withdrawal vs brain hemorrhage. Pt now being treated for pneumonia, extubated on 03/18, tolerating well. Plan: Neuro: Awake and alert - will discontinue precedex Keppra 500mg q12 IV Alcohol W/D Librium 5mg PO Q12H Folic acid/thiamine/MV PO Ativan PRN Cardiovascular: Normotensive Hemodynamically stable Cardiac Stable Pulmonary: Extubated on 03/18, tolerating well Being treated for pneumonia with CXR showing a confluent opacity at the right lung base. On cefepime till 03/24 Secretions - started on scopalamine patch Sputum cultures positive for gram neg rods - f/u sensitivities Gastrointestinal: Dysphagia/modified diet EtOH cirrhosis C diff positive again Vancomycin 250mg PO q6 (start 03/15) Hematology: chronic anemia, stable Endocrine: No acute issues Renal: Mild hyponatremia - improving Hypomagnesemia, repleted Monitor Musculoskeletal: No ulcers notes Genitourinary: No issues Infectious Disease: Cefepime 1g IV q8 (start 03/09) Vancomycin 250mg PO q6 (start 03/15) Psych: Anxiety Xanax .25mg PO daily GI Prophylaxis: Protonix 40mg IV daily DVT Prophylaxis: Lovenox 40mg SC Daily Pt to be transferred to med/surg <Robert Albert S - Last Filed: 03/21/17 17:18> CCU Objective - Vital Signs / Intake & Output Vital Signs (Last 4 hours): Vital Signs Pulse Resp BP Pulse Ox 03/21/17 14:00 72 18 109/66 96 Intake and Output (Last 8hrs): Intake & Output 03/21/17 03/21/17 03/21/17 06:59 14:59 22:59 Intake Total 801.8 1153.1 Output Total 1300 200 Balance -498.2 953.1 Weight 148 lb Intake: IV 50 0 Intake, IV Amount 751.8 213.1 Left Forearm 675 150 Right Hand 50 side port left fforearm 76.8 13.1 Oral 940 Output: Urine 1300 200 Condom 1300 200 - Medications Active Medications: Active Medications Generic Name Dose Route Start Last Admin Trade Name Freq PRN Reason Stop Dose Admin Albuterol/Ipratropium 3 ml 03/11/17 20:00 03/21/17 13:42 Duoneb 3 Mg/0.5 Mg (3 Ml) Ud INH Not Given RQ6 [facility] Chlordiazepoxide 5 mg 03/19/17 10:15 03/21/17 09:21 Librium PO 5 mg Q12 [facility] Administration Enoxaparin Sodium 40 mg 03/16/17 10:00 03/21/17 09:21 Lovenox SC 40 mg DAILY [facility] Administration Famotidine 20 mg 03/19/17 10:00 03/21/17 09:21 Pepcid IVP 20 mg DAILY [facility] Administration Famotidine 20 mg 03/21/17 10:00 03/21/17 12:44 Pepcid PO Not Given BID [facility] Cefepime HCl 1 gm/ Dextrose 50 mls @ 100 mls/hr 03/09/17 21:00 03/21/17 12:58 IVPB 03/24/17 11:00 100 mls/hr Q8H [facility] Administration Levetiracetam 500 mg/ Sodium 105 mls @ 420 mls/hr 03/18/17 19:00 03/21/17 06: 45 Chloride IVPB 420 mls/hr Q12H [facility] Administration Lorazepam 1 mg 03/21/17 10:45 Ativan IVP Q6H PRN Anxiety Scopolamine 1 patch 03/17/17 14:00 03/20/17 13:29 Transderm-Scop TD 1 patch Q3D [facility] Administration Vancomycin HCl 250 mg 03/19/17 13:30 03/21/17 12:58 Vancocin (Oral Or Rectal Use) PO 250 mg Q6H [facility] Administration - Patient Studies Lab Studies: Microbiology Studies 03/20/17 09:22 Gram Stain - Final Sputum Sputum Culture - Preliminary Gram Negative [facility] Studies 03/21/17 03/21/17 03/20/17 Range/Units 06:34 06:34 20:19 WBC 5.3 (4.8-10.8) K/uL RBC 4.04 L (4.40-5.90) Mil/uL Hgb 10.1 L (12.0-18.0) g/dL Hct 32.1 L (35.0-51.0) % MCV 79.6 L (80.0-94.0) fL MCH 25.1 L (27.0-31.0) pg MCHC 31.6 L (33.0-37.0) g/dL RDW 19.4 H (11.5-14.5) % Plt Count 453 H D (130-400) K/uL MPV 8.4 (7.2-11.7) fL Neut % (Auto) 56.6 (50.0-75.0) % Lymph % (Auto) 26.2 (20.0-40.0) % [place] % (Auto) 9.4 (0.0-10.0) % Eos % (Auto) 6.0 H (0.0-4.0) % Baso % (Auto) 1.8 (0.0-2.0) % Neut # 3.0 (1.8-7.0) K/uL Lymph # 1.4 (1.0-4.3) K/uL [place] # 0.5 (0.0-0.8) K/uL Eos # 0.3 (0.0-0.7) K/uL Baso # 0.1 (0.0-0.2) K/uL Sodium 134 (132-148) mmol/L Potassium 3.8 (3.6-5.2) mmol/L Chloride 94 L (98-107) mmol/L Carbon Dioxide 30 (22-30) mmol/L Anion Gap 14 (10-20) BUN 5 L (9-20) mg/dL Creatinine 0.5 L (0.8-1.5) MG/DL Est GFR ( Amer) > 60 Est GFR (Non-Af Amer) > 60 Random Glucose 122 H (75-110) mg/dL Calcium 8.9 (8.6-10.4) mg/dl Phosphorus 4.0 (2.5-4.5) mg/dL Magnesium 1.5 L (1.6-2.3) mg/dL Total Bilirubin 0.6 (0.2-1.3) mg/dL AST 48 (17-59) U/L ALT 45 (21-72) U/L Alkaline Phosphatase 177 H (38-126) U/L Total Protein 7.4 (6.3-8.3) g/dL Albumin 3.3 L (3.5-5.0) g/dL Globulin 4.1 H (2.2-3.9) gm/dL Albumin/Globulin Ratio 0.8 L (1.0-2.1) C. difficile Ag & Toxin Positive H (NEGATIVE) Laboratory Results - last 24 hr 03/20/17 03/21/17 03/21/17 20:19 06:34 06:34 WBC 5.3 RBC 4.04 L Hgb 10.1 L Hct 32.1 L MCV 79.6 L MCH 25.1 L MCHC 31.6 L RDW 19.4 H Plt Count 453 H D MPV 8.4 Neut % (Auto) 56.6 Lymph % (Auto) 26.2 [place] % (Auto) 9.4 Eos % (Auto) 6.0 H Baso % (Auto) 1.8 Neut # 3.0 Lymph # 1.4 [place] # 0.5 Eos # 0.3 Baso # 0.1 Sodium 134 Potassium 3.8 Chloride 94 L Carbon Dioxide 30 Anion Gap 14 BUN 5 L Creatinine 0.5 L Est GFR ( Amer) > 60 Est GFR (Non-Af Amer) > 60 Random Glucose 122 H Calcium 8.9 Phosphorus 4.0 Magnesium 1.5 L Total Bilirubin 0.6 AST 48 ALT 45 Alkaline Phosphatase 177 H Total Protein 7.4 Albumin 3.3 L Globulin 4.1 H Albumin/Globulin Ratio 0.8 L C. difficile Ag & Toxin Positive H Critical Care Progress Note - Nutrition Nutrition: Nutrition Category Date Time Status Dysphagia/Modified Consistency Diet [DIET] Diets 03/20/17 Dinner Active Attending/Attestation - Attestation I have personally seen and examined this patient.: Yes I have fully participated in the care of the patient.: Yes I have reviewed all pertinent clinical information: Yes Notes (Text): 03/21/17 17:17 patient seen and examined in the intensive care unit. Case discussed with house staff in the morning rounds. Stable for transfer to floor Continue present treatment
--- NOTE | 2017-03-21 19:05 | CP.PCM.PN ---
Subjective - Date & Time of Evaluation Date of Evaluation: 03/21/17 Time of Evaluation: 19:05 - Subjective Subjective: Patient seen and examined No events overnight Objective - Vital Signs/Intake and Output Vital Signs (last 24 hours): Temp Pulse Resp BP Pulse Ox 98.2 F 72 18 109/66 96 03/21/17 12:00 03/21/17 14:00 03/21/17 14:00 03/21/17 14:00 03/21/17 14:00 Intake and Output: 03/21/17 03/22/17 18:59 06:59 Intake Total 1153.1 Output Total 200 Balance 953.1 - Medications Medications: Current Medications Albuterol/Ipratropium (Duoneb 3 Mg/0.5 Mg (3 Ml) Ud) 3 ml INH RQ6 [facility] Last Admin: 03/21/17 13:42 Dose: Not Given Chlordiazepoxide (Librium) 5 mg PO Q12 [facility] Last Admin: 03/21/17 09:21 Dose: 5 mg Enoxaparin Sodium (Lovenox) 40 mg SC DAILY [facility] Last Admin: 03/21/17 09:21 Dose: 40 mg Famotidine (Pepcid) 20 mg IVP DAILY [facility] Last Admin: 03/21/17 09:21 Dose: 20 mg Famotidine (Pepcid) 20 mg PO BID [facility] Last Admin: 03/21/17 18:17 Dose: 20 mg Cefepime HCl 1 gm/ Dextrose 50 mls @ 100 mls/hr IVPB Q8H [facility] Stop: 03/24/17 11:00 Last Admin: 03/21/17 12:58 Dose: 100 mls/hr Levetiracetam 500 mg/ Sodium (Chloride) 105 mls @ 420 mls/hr IVPB Q12H [facility] Last Admin: 03/21/17 18:13 Dose: 420 mls/hr Lorazepam (Ativan) 1 mg IVP Q6H PRN PRN Reason: Anxiety Scopolamine (Transderm-Scop) 1 patch TD Q3D [facility] Last Admin: 03/20/17 13:29 Dose: 1 patch Vancomycin HCl (Vancocin (Oral Or Rectal Use)) 250 mg PO Q6H [facility] Last Admin: 03/21/17 18:32 Dose: 250 mg - Labs Labs: 03/21/17 06:34 03/21/17 06:34 PT 12.0 SECONDS (9.7-12.2) 03/16/17 06:02 INR 1.1 03/16/17 06:02 APTT 33 SECONDS (21-34) 03/16/17 06:02 - Head Exam Head Exam: NORMOCEPHALIC - Eye Exam Eye Exam: Normal appearance - ENT Exam ENT Exam: Mucous Membranes Moist - Respiratory Exam Respiratory Exam: Rhonchi - GI/Abdominal Exam GI & Abdominal Exam: Soft, Normal Bowel Sounds - Extremities Exam Extremities Exam: Normal Inspection Assessment and Plan - Assessment and Plan (Free Text) Assessment: Acute respiratory failure Pneumonia COPD Right mastoid fracture Subarachnoid hemorrhage Subdural hemorrhage Seizures History of alcohol abuse Continue antibiotic Bronchodilators Seizure prophylaxis Thiamine and folate Rest as per ICU management Continue supportive care DVT/GI prophylaxis
[2017-03-22] MEDS: Albuterol-Ipratrop 3 mg / 0.5 (3 ml) UD INH SCH ×4 (01:25→20:10)
[2017-03-22] MEDS: levETIRAcetam 500 MG in Sodium Chloride 0.9% 100 ML IVPB SCH (22:04)
[2017-03-22] MEDS: Vancomycin 125 MG/5 ML SOLN (ORAL/RECTAL) PO SCH (22:06)
--- NOTE | 2017-03-22 22:34 | CP.PCM.PN ---
Subjective - Date & Time of Evaluation Date of Evaluation: 03/22/17 Time of Evaluation: 12:40 - Subjective Subjective: clinically same Objective - Vital Signs/Intake and Output Vital Signs (last 24 hours): Temp Pulse Resp BP Pulse Ox 98.2 F 72 18 126/75 97 03/21/17 22:00 03/21/17 14:00 03/21/17 14:00 03/21/17 22:00 03/21/17 22:00 Intake and Output: 03/22/17 03/23/17 18:59 06:59 Intake Total 500 Output Total 200 Balance 300 - Medications Medications: Current Medications Albuterol/Ipratropium (Duoneb 3 Mg/0.5 Mg (3 Ml) Ud) 3 ml INH RQ6 [facility] Last Admin: 03/22/17 20:10 Dose: 3 ml Chlordiazepoxide (Librium) 5 mg PO Q12 [facility] Last Admin: 03/22/17 22:04 Dose: Not Given Enoxaparin Sodium (Lovenox) 40 mg SC DAILY [facility] Last Admin: 03/21/17 09:21 Dose: 40 mg Famotidine (Pepcid) 20 mg IVP DAILY [facility] Last Admin: 03/21/17 09:21 Dose: 20 mg Famotidine (Pepcid) 20 mg PO BID [facility] Last Admin: 03/22/17 22:05 Dose: Not Given Cefepime HCl 1 gm/ Dextrose 50 mls @ 100 mls/hr IVPB Q8H [facility] Stop: 03/24/17 11:00 Last Admin: 03/22/17 22:04 Dose: Not Given Levetiracetam 500 mg/ Sodium (Chloride) 105 mls @ 420 mls/hr IVPB Q12H [facility] Last Admin: 03/22/17 22:04 Dose: Not Given Lorazepam (Ativan) 1 mg IVP Q6H PRN PRN Reason: Anxiety Scopolamine (Transderm-Scop) 1 patch TD Q3D [facility] Last Admin: 03/20/17 13:29 Dose: 1 patch Vancomycin HCl (Vancocin (Oral Or Rectal Use)) 250 mg PO Q6H [facility] Last Admin: 03/22/17 22:06 Dose: Not Given - Labs Labs: 03/21/17 06:34 03/21/17 06:34 PT 12.0 SECONDS (9.7-12.2) 03/16/17 06:02 INR 1.1 03/16/17 06:02 APTT 33 SECONDS (21-34) 03/16/17 06:02 - Constitutional Appears: Well - Head Exam Head Exam: ATRAUMATIC, NORMAL INSPECTION, NORMOCEPHALIC - ENT Exam ENT Exam: Mucous Membranes Moist, Normal Exam - Neck Exam Neck Exam: Full ROM, Normal Inspection. absent: Lymphadenopathy - Respiratory Exam Respiratory Exam: Decreased Breath Sounds, Clear to Ausculation Bilateral, NORMAL BREATHING PATTERN - Cardiovascular Exam Cardiovascular Exam: REGULAR RHYTHM, +S1, +S2 - GI/Abdominal Exam GI & Abdominal Exam: Soft, Diminished Bowel Sounds - Rectal Exam Rectal Exam: Deferred Assessment and Plan (1) Abdominal pain Status: Acute (2) Abrasion Status: Acute (3) Alcohol abuse with intoxication Status: Acute (4) Alcohol intoxication Status: Acute (5) Alcohol withdrawal Status: Acute (6) Alcohol withdrawal seizure Status: Acute (7) Bacteremia Status: Acute (8) Bilateral lower extremity edema Status: Acute (9) Breakthrough seizure Status: Acute (10) Cellulitis Status: Acute (11) Cellulitis of lower extremity Status: Acute (12) Chronic calcific pancreatitis Status: Acute (13) Dehydration Status: Acute (14) Diarrhea Status: Acute (15) Dressing change/suture removal Status: Acute (16) Drug dependence Status: Acute (17) Duodenitis Status: Acute (18) Electrolyte imbalance Status: Acute (19) Elevated alkaline phosphatase level Status: Acute (20) Facial laceration Status: Acute (21) Fever Status: Acute (22) Head trauma Status: Acute (23) Homelessness Status: Acute (24) Hyperphosphatemia Status: Acute (25) Hypokalemia Status: Acute (26) Hypokalemia with normal acid-base balance Status: Acute (27) Hypomagnesemia Status: Acute (28) Hypothermia Status: Acute (29) Low vitamin D level Status: Acute (30) Pancreatic mass Status: Acute (31) Pancreatitis, acute Status: Acute (32) Periapical abscess Status: Acute (33) Pneumonia Status: Acute (34) Pneumonia Status: Acute (35) Prophylactic measure Status: Acute (36) Respiratory failure with hypoxia and hypercapnia Status: Acute (37) Seizure Status: Acute (38) Skull fracture Status: Acute (39) Subarachnoid bleed Status: Acute (40) Subdural hematoma Status: Acute (41) Subdural hemorrhage Status: Acute (42) Thrombocythemia Status: Acute (43) Thrombocytopenia Status: Acute (44) Tobacco abuse Status: Acute (45) Tremors of nervous system Status: Acute (46) Vitamin D deficiency Status: Acute (47) Acute on chronic pancreatitis Status: Chronic (48) Alcohol abuse Status: Chronic (49) Alcohol abuse Status: Chronic (50) Alcohol dependence Status: Chronic (51) Anemia Status: Chronic (52) Anxiety and depression Status: Chronic (53) Aspiration into lower respiratory tract Status: Chronic (54) COPD (chronic obstructive pulmonary disease) Status: Chronic (55) Cholecystitis Status: Chronic (56) Chronic pancreatitis Status: Chronic (57) Depression Status: Chronic (58) Hypertension Status: Chronic (59) Peripheral motor neuropathy Status: Chronic (60) Empyema Status: Suspected (61) Seizure Status: Resolved - Assessment and Plan (Free Text) Plan: Follow-up neurologist Follow-up IV Continue antibiotic Continue Keppra Continue thiamine Continue folic acid Continue Protonix
--- NOTE | 2017-03-22 23:12 | CP.PCM.PN ---
Subjective - Date & Time of Evaluation Date of Evaluation: 03/22/17 Time of Evaluation: 19:00 - Subjective Subjective: Patient seen and examined No events overnight Awake and alert Physical exam Vital signs noted Generalno distress Necksupple CVSS1-S2 heard Lungsbilateral rhonchi Abdomensoft, ND Extremityno edema Neurononfocal Assessment/plan S/P acute respiratory failureS/P extubated COPD Pneumonia SAH SDH Seizures History of alcohol abuse Continue antibiotics Follow cultures Thiamine/folate Chest PT Bronchodilators Librium DVT/GI prophylaxis Objective - Vital Signs/Intake and Output Vital Signs (last 24 hours): Temp Pulse Resp BP Pulse Ox 98.2 F 72 18 126/75 97 03/21/17 22:00 03/21/17 14:00 03/21/17 14:00 03/21/17 22:00 03/21/17 22:00 Intake and Output: 03/22/17 03/23/17 18:59 06:59 Intake Total 500 Output Total 200 Balance 300 - Medications Medications: Current Medications Albuterol/Ipratropium (Duoneb 3 Mg/0.5 Mg (3 Ml) Ud) 3 ml INH RQ6 [facility] Last Admin: 03/22/17 20:10 Dose: 3 ml Chlordiazepoxide (Librium) 5 mg PO Q12 [facility] Last Admin: 03/22/17 22:04 Dose: Not Given Enoxaparin Sodium (Lovenox) 40 mg SC DAILY [facility] Last Admin: 03/21/17 09:21 Dose: 40 mg Famotidine (Pepcid) 20 mg IVP DAILY [facility] Last Admin: 03/21/17 09:21 Dose: 20 mg Famotidine (Pepcid) 20 mg PO BID [facility] Last Admin: 03/22/17 22:05 Dose: Not Given Cefepime HCl 1 gm/ Dextrose 50 mls @ 100 mls/hr IVPB Q8H [facility] Stop: 03/24/17 11:00 Last Admin: 03/22/17 22:04 Dose: Not Given Levetiracetam 500 mg/ Sodium (Chloride) 105 mls @ 420 mls/hr IVPB Q12H [facility] Last Admin: 03/22/17 22:04 Dose: Not Given Lorazepam (Ativan) 1 mg IVP Q6H PRN PRN Reason: Anxiety Scopolamine (Transderm-Scop) 1 patch TD Q3D [facility] Last Admin: 03/20/17 13:29 Dose: 1 patch Vancomycin HCl (Vancocin (Oral Or Rectal Use)) 250 mg PO Q6H [facility] Last Admin: 03/22/17 22:06 Dose: Not Given - Labs Labs: 03/21/17 06:34 03/21/17 06:34 PT 12.0 SECONDS (9.7-12.2) 03/16/17 06:02 INR 1.1 03/16/17 06:02 APTT 33 SECONDS (21-34) 03/16/17 06:02
[2017-03-23] MEDS: Vancomycin 125 MG/5 ML SOLN (ORAL/RECTAL) PO SCH ×5 (00:45→18:55)
[2017-03-23] MEDS: Albuterol-Ipratrop 3 mg / 0.5 (3 ml) UD INH SCH ×4 (01:12→19:46)
[2017-03-23] MEDS: levETIRAcetam 500 MG in Sodium Chloride 0.9% 100 ML IVPB SCH ×2 (11:39→22:28)
[2017-03-23] MEDS: Enoxaparin 40 mg Syringe SC SCH (11:39)
--- NOTE | 2017-03-23 14:37 | CP.PCM.PN ---
Subjective - Date & Time of Evaluation Date of Evaluation: 03/23/17 Time of Evaluation: 14:37 - Subjective Subjective: Patient seen and examined No events overnight Awake and alert Physical exam Vital signs noted Generalno distress Necksupple CVSS1-S2 heard Lungsbilateral rhonchi Abdomensoft, ND Extremityno edema Neurononfocal Assessment/plan S/P acute respiratory failureS/P extubated COPD Pneumonia SAH SDH Seizures History of alcohol abuse Continue antibiotics Follow cultures Thiamine/folate Chest PT Bronchodilators Librium DVT/GI prophylaxis Objective - Vital Signs/Intake and Output Vital Signs (last 24 hours): Temp Pulse Resp BP Pulse Ox 97.6 F 71 20 131/55 L 98 03/23/17 06:00 03/23/17 09:00 03/23/17 09:00 03/23/17 09:00 03/23/17 09:00 Intake and Output: 03/23/17 03/23/17 06:59 18:59 Intake Total 500 Output Total 200 Balance 300 - Medications Medications: Current Medications Albuterol/Ipratropium (Duoneb 3 Mg/0.5 Mg (3 Ml) Ud) 3 ml INH RQ6 [facility] Last Admin: 03/23/17 13:22 Dose: Not Given Chlordiazepoxide (Librium) 5 mg PO Q12 [facility] Last Admin: 03/23/17 11:44 Dose: 5 mg Famotidine (Pepcid) 20 mg IVP DAILY [facility] Last Admin: 03/23/17 13:25 Dose: Not Given Famotidine (Pepcid) 20 mg PO BID [facility] Last Admin: 03/23/17 13:18 Dose: 20 mg Levetiracetam 500 mg/ Sodium (Chloride) 105 mls @ 420 mls/hr IVPB Q12H [facility] Last Admin: 03/23/17 11:39 Dose: 420 mls/hr Lorazepam (Ativan) 1 mg IVP Q6H PRN PRN Reason: Anxiety Last Admin: 03/23/17 00:07 Dose: 1 mg Scopolamine (Transderm-Scop) 1 patch TD Q3D [facility] Last Admin: 03/20/17 13:29 Dose: 1 patch Vancomycin HCl (Vancocin (Oral Or Rectal Use)) 250 mg PO Q6H [facility] Last Admin: 03/23/17 13:18 Dose: 250 mg - Labs Labs: 03/21/17 06:34 03/21/17 06:34 PT 12.0 SECONDS (9.7-12.2) 03/16/17 06:02 INR 1.1 03/16/17 06:02 APTT 33 SECONDS (21-34) 03/16/17 06:02
--- NOTE | 2017-03-23 17:56 | CP.PCM.PN ---
Subjective - Date & Time of Evaluation Date of Evaluation: 03/23/17 Time of Evaluation: 11:00 - Subjective Subjective: clinically same Objective - Vital Signs/Intake and Output Vital Signs (last 24 hours): Temp Pulse Resp BP Pulse Ox 98.2 F 71 20 125/79 93 L 03/23/17 16:51 03/23/17 16:51 03/23/17 16:51 03/23/17 16:51 03/23/17 16:51 Intake and Output: 03/23/17 03/23/17 06:59 18:59 Intake Total 500 Output Total 200 Balance 300 - Medications Medications: Current Medications Albuterol/Ipratropium (Duoneb 3 Mg/0.5 Mg (3 Ml) Ud) 3 ml INH RQ6 [facility] Last Admin: 03/23/17 13:22 Dose: Not Given Chlordiazepoxide (Librium) 5 mg PO Q12 [facility] Last Admin: 03/23/17 11:44 Dose: 5 mg Famotidine (Pepcid) 20 mg IVP DAILY [facility] Last Admin: 03/23/17 13:25 Dose: Not Given Famotidine (Pepcid) 20 mg PO BID [facility] Last Admin: 03/23/17 13:18 Dose: 20 mg Levetiracetam 500 mg/ Sodium (Chloride) 105 mls @ 420 mls/hr IVPB Q12H [facility] Last Admin: 03/23/17 11:39 Dose: 420 mls/hr Lorazepam (Ativan) 1 mg IVP Q6H PRN PRN Reason: Anxiety Last Admin: 03/23/17 00:07 Dose: 1 mg Scopolamine (Transderm-Scop) 1 patch TD Q3D [facility] Last Admin: 03/23/17 15:31 Dose: 1 patch Vancomycin HCl (Vancocin (Oral Or Rectal Use)) 250 mg PO Q6H [facility] Last Admin: 03/23/17 13:18 Dose: 250 mg - Labs Labs: 03/21/17 06:34 03/21/17 06:34 PT 12.0 SECONDS (9.7-12.2) 03/16/17 06:02 INR 1.1 03/16/17 06:02 APTT 33 SECONDS (21-34) 03/16/17 06:02 - Constitutional Appears: Well - Head Exam Head Exam: ATRAUMATIC, NORMAL INSPECTION, NORMOCEPHALIC - Eye Exam Eye Exam: EOMI, Normal appearance, PERRL Pupil Exam: NORMAL ACCOMODATION, PERRL - ENT Exam ENT Exam: Mucous Membranes Moist, Normal Exam - Neck Exam Neck Exam: Full ROM, Normal Inspection. absent: Lymphadenopathy - Respiratory Exam Respiratory Exam: Decreased Breath Sounds - Cardiovascular Exam Cardiovascular Exam: +S1, +S2 - GI/Abdominal Exam GI & Abdominal Exam: Soft, Diminished Bowel Sounds - Rectal Exam Rectal Exam: Deferred Assessment and Plan - Assessment and Plan (Free Text) Plan: Follow-up neurologist Follow-up IV Continue antibiotic Continue Keppra Continue thiamine Continue folic acid Continue Protonix
[2017-03-24] MEDS: Vancomycin 125 MG/5 ML SOLN (ORAL/RECTAL) PO SCH ×4 (00:06→18:01)
[2017-03-24] MEDS: Albuterol-Ipratrop 3 mg / 0.5 (3 ml) UD INH SCH ×4 (02:31→19:47)
--- NOTE | 2017-03-24 09:15 | CP.PCM.PN ---
Subjective - Date & Time of Evaluation Date of Evaluation: 03/24/17 Time of Evaluation: 08:20 - Subjective Subjective: clinically same Objective - Vital Signs/Intake and Output Vital Signs (last 24 hours): Temp Pulse Resp BP Pulse Ox 98 F 60 20 144/76 95 03/23/17 23:45 03/23/17 23:45 03/23/17 23:45 03/23/17 23:45 03/23/17 23:45 Intake and Output: 03/24/17 03/24/17 06:59 18:59 Intake Total 580 Balance 580 - Medications Medications: Current Medications Albuterol/Ipratropium (Duoneb 3 Mg/0.5 Mg (3 Ml) Ud) 3 ml INH RQ6 [facility] Last Admin: 03/24/17 07:50 Dose: 3 ml Chlordiazepoxide (Librium) 5 mg PO Q12 [facility] Last Admin: 03/23/17 22:04 Dose: Not Given Famotidine (Pepcid) 20 mg IVP DAILY [facility] Last Admin: 03/23/17 13:25 Dose: Not Given Famotidine (Pepcid) 20 mg PO BID [facility] Last Admin: 03/23/17 18:56 Dose: 20 mg Levetiracetam 500 mg/ Sodium (Chloride) 105 mls @ 420 mls/hr IVPB Q12H [facility] Last Admin: 03/23/17 22:28 Dose: 420 mls/hr Cefepime HCl 1 gm/ Dextrose 50 mls @ 100 mls/hr IVPB Q6H [facility] Lorazepam (Ativan) 1 mg IVP Q6H PRN PRN Reason: Anxiety Last Admin: 03/23/17 00:07 Dose: 1 mg Scopolamine (Transderm-Scop) 1 patch TD Q3D [facility] Last Admin: 03/23/17 15:31 Dose: 1 patch Vancomycin HCl (Vancocin (Oral Or Rectal Use)) 250 mg PO Q6H [facility] Last Admin: 03/24/17 05:13 Dose: 250 mg - Labs Labs: 03/21/17 06:34 03/21/17 06:34 PT 12.0 SECONDS (9.7-12.2) 03/16/17 06:02 INR 1.1 03/16/17 06:02 APTT 33 SECONDS (21-34) 03/16/17 06:02 - Constitutional Appears: Well - Head Exam Head Exam: ATRAUMATIC, NORMAL INSPECTION, NORMOCEPHALIC - Eye Exam Eye Exam: EOMI, Normal appearance, PERRL Pupil Exam: NORMAL ACCOMODATION, PERRL - ENT Exam ENT Exam: Mucous Membranes Moist, Normal Exam - Neck Exam Neck Exam: Full ROM, Normal Inspection. absent: Lymphadenopathy - Respiratory Exam Respiratory Exam: Decreased Breath Sounds - Cardiovascular Exam Cardiovascular Exam: REGULAR RHYTHM, +S1, +S2 - GI/Abdominal Exam GI & Abdominal Exam: Soft, Diminished Bowel Sounds - Rectal Exam Rectal Exam: Deferred Assessment and Plan - Assessment and Plan (Free Text) Assessment: susana samescopolamine patchcefepime frequ suction of secretion pulm id ocnsult for cl difficle infection Plan: Follow-up neurologist Follow-up IV Continue Ativan Continue antibiotic Continue Keppra Continue thiamine Continue folic acid Continue Pepcid
--- NOTE | 2017-03-24 10:24 | CP.PCM.PN ---
Subjective - Date & Time of Evaluation Date of Evaluation: 03/24/17 Time of Evaluation: 10:24 - Subjective Subjective: Patient seen and examined No events overnight Awake and alert Physical exam Vital signs noted Generalno distress Necksupple CVSS1-S2 heard Lungsbilateral rhonchi Abdomensoft, ND Extremityno edema Neurononfocal Assessment/plan S/P acute respiratory failureS/P extubated COPD Pneumonia SAH SDH Seizures History of alcohol abuse Continue antibiotics Follow cultures Thiamine/folate Chest PT Bronchodilators Librium Scopolamine patch DVT/GI prophylaxis Objective - Vital Signs/Intake and Output Vital Signs (last 24 hours): Temp Pulse Resp BP Pulse Ox 98 F 60 20 144/76 95 03/23/17 23:45 03/23/17 23:45 03/23/17 23:45 03/23/17 23:45 03/23/17 23:45 Intake and Output: 03/24/17 03/24/17 06:59 18:59 Intake Total 580 Balance 580 - Medications Medications: Current Medications Albuterol/Ipratropium (Duoneb 3 Mg/0.5 Mg (3 Ml) Ud) 3 ml INH RQ6 [facility] Last Admin: 03/24/17 07:50 Dose: 3 ml Chlordiazepoxide (Librium) 5 mg PO Q12 [facility] Last Admin: 03/23/17 22:04 Dose: Not Given Famotidine (Pepcid) 20 mg IVP DAILY [facility] Last Admin: 03/23/17 13:25 Dose: Not Given Famotidine (Pepcid) 20 mg PO BID [facility] Last Admin: 03/23/17 18:56 Dose: 20 mg Levetiracetam 500 mg/ Sodium (Chloride) 105 mls @ 420 mls/hr IVPB Q12H [facility] Last Admin: 03/23/17 22:28 Dose: 420 mls/hr Cefepime HCl 1 gm/ Dextrose 50 mls @ 100 mls/hr IVPB Q6H [facility] Lorazepam (Ativan) 1 mg IVP Q6H PRN PRN Reason: Anxiety Last Admin: 03/23/17 00:07 Dose: 1 mg Scopolamine (Transderm-Scop) 1 patch TD Q3D [facility] Last Admin: 03/23/17 15:31 Dose: 1 patch Vancomycin HCl (Vancocin (Oral Or Rectal Use)) 250 mg PO Q6H [facility] Last Admin: 03/24/17 05:13 Dose: 250 mg - Labs Labs: 03/21/17 06:34 03/21/17 06:34 PT 12.0 SECONDS (9.7-12.2) 03/16/17 06:02 INR 1.1 03/16/17 06:02 APTT 33 SECONDS (21-34) 03/16/17 06:02
[2017-03-24] MEDS: levETIRAcetam 500 MG in Sodium Chloride 0.9% 100 ML IVPB SCH ×2 (12:17→21:29)
[2017-03-24 20:15] LABS: BASO # 0.1 K/uL (0.0-0.2); BASO % 1.5 % (0.0-2.0); EOS # 0.4 K/uL (0.0-0.7); EOS % 5.1 % (0.0-4.0); HEMATOCRIT 31.5 % (35.0-51.0); LYMPH # 1.8 K/uL (1.0-4.3); LYMPH % 21.4 % (20.0-40.0); MEAN CORPUSCULAR HEMOGLOBIN 25.2 pg (27.0-31.0); MEAN CORPUSCULAR HGB CONC 31.9 g/dL (33.0-37.0); MEAN PLATELET VOLUME 7.9 fL (7.2-11.7); MONO # 0.5 K/uL (0.0-0.8); MONO % 5.8 % (0.0-10.0); NRBC % 0.1 % (0.0-2.0); RED CELL DISTRIBUTION WIDTH 20.1 % (11.5-14.5)
[2017-03-24 20:20] LABS: WHITE BLOOD COUNT 8.2 K/uL (4.8-10.8)
[2017-03-24 20:26] LABS: CHLORIDE 90 mmol/L (98-107); POTASSIUM 3.9 mmol/L (3.6-5.2); SODIUM 128 mmol/L (132-148)
[2017-03-24 20:28] LABS: ALKALINE PHOSPHATASE 131 U/L (38-126); AST/SGOT 48 U/L (17-59); BILIRUBIN,TOTAL 0.5 mg/dL (0.2-1.3); CARBON DIOXIDE 23 mmol/L (22-30); GFR AFRICAN-AMERICAN > 60
[2017-03-24 20:29] LABS: ALT/SGPT 55 U/L (21-72); BLOOD UREA NITROGEN 6 mg/dL (9-20); CALCIUM 7.7 mg/dl (8.6-10.4); GLUCOSE,RANDOM 151 mg/dL (75-110)
[2017-03-25] MEDS: Albuterol-Ipratrop 3 mg / 0.5 (3 ml) UD INH SCH ×4 (01:20→20:54)
[2017-03-25] MEDS: Vancomycin 125 MG/5 ML SOLN (ORAL/RECTAL) PO SCH ×5 (01:36→23:43)
[2017-03-25 06:48] LABS: BASO # 0.2 K/uL (0.0-0.2); BASO % 2.4 % (0.0-2.0); EOS # 0.6 K/uL (0.0-0.7); HEMATOCRIT 33.9 % (35.0-51.0); LYMPH # 1.5 K/uL (1.0-4.3); LYMPH % 21.9 % (20.0-40.0); MEAN CELL VOLUME 79.8 fL (80.0-94.0); MEAN CORPUSCULAR HEMOGLOBIN 25.3 pg (27.0-31.0); MEAN CORPUSCULAR HGB CONC 31.7 g/dL (33.0-37.0); MEAN PLATELET VOLUME 7.9 fL (7.2-11.7); MONO # 0.4 K/uL (0.0-0.8); MONO % 6.3 % (0.0-10.0); WHITE BLOOD COUNT 6.9 K/uL (4.8-10.8)
[2017-03-25 06:58] LABS: CHLORIDE 93 mmol/L (98-107)
[2017-03-25 06:59] LABS: SODIUM 130 mmol/L (132-148)
[2017-03-25 07:00] LABS: POTASSIUM 4.1 mmol/L (3.6-5.2)
[2017-03-25 07:02] LABS: ALB/GLOB RATIO 0.9 (1.0-2.1); ALKALINE PHOSPHATASE 144 U/L (38-126); AST/SGOT 57 U/L (17-59); BILIRUBIN,TOTAL 0.6 mg/dL (0.2-1.3); BLOOD UREA NITROGEN 7 mg/dL (9-20); CARBON DIOXIDE 25 mmol/L (22-30); GFR AFRICAN-AMERICAN > 60; TOTAL PROTEIN 7.5 g/dL (6.3-8.3)
[2017-03-25 07:03] LABS: ALT/SGPT 47 U/L (21-72); CALCIUM 8.6 mg/dl (8.6-10.4); GLUCOSE,RANDOM 106 mg/dL (75-110)
--- NOTE | 2017-03-25 08:01 | RAD ---
HISTORY: r/o pneumonia COMPARISON: No prior. FINDINGS: LUNGS: Patchy consolidative opacity at the left lung base and right infrahilar region. Clinical correlation. Diffuse increased interstitial lung markings. Bilateral hilar prominence. Biapical pleural thickening. PLEURA: No significant pleural effusion identified, no pneumothorax apparent. CARDIOVASCULAR: Calcification at the aortic knob. OSSEOUS STRUCTURES: No significant abnormalities. VISUALIZED UPPER ABDOMEN: Normal. OTHER FINDINGS: None. IMPRESSION: Patchy consolidative opacity at the left lung base and right infrahilar region. Clinical correlation. Diffuse increased interstitial lung markings. Bilateral hilar prominence. Biapical pleural thickening.
[2017-03-25] MEDS: levETIRAcetam 500 MG in Sodium Chloride 0.9% 100 ML IVPB SCH ×2 (11:48→21:18)
--- NOTE | 2017-03-25 12:40 | CP.PCM.PN ---
Subjective - Date & Time of Evaluation Date of Evaluation: 03/25/17 Time of Evaluation: 12:40 - Subjective Subjective: Patient seen and examined Objective - Vital Signs/Intake and Output Vital Signs (last 24 hours): Temp Pulse Resp BP Pulse Ox 98.2 F 65 20 108/63 95 03/25/17 09:03 03/25/17 09:03 03/25/17 09:03 03/25/17 09:03 03/25/17 09:03 Intake and Output: 03/25/17 03/25/17 06:59 18:59 Intake Total 1200 Output Total 700 Balance 500 - Medications Medications: Current Medications Albuterol/Ipratropium (Duoneb 3 Mg/0.5 Mg (3 Ml) Ud) [address] [facility] Last Admin: 03/25/17 07:55 Dose: 3 ml Chlordiazepoxide (Librium) [address] [facility] Last Admin: 03/25/17 11:04 Dose: 5 mg Famotidine (Pepcid) [address] [facility] Last Admin: 03/25/17 11:04 Dose: Not Given Famotidine (Pepcid) [address] [facility] Last Admin: 03/25/17 11:04 Dose: 20 mg Levetiracetam 500 mg/ Sodium (Chloride) 105 mls @ 420 mls/hr IVPB Q12H [facility] Last Admin: 03/25/17 11:48 Dose: 420 mls/hr Cefepime HCl 1 gm/ Dextrose 50 mls @ 100 mls/hr IVPB Q6H [facility] Last Admin: 03/25/17 11:03 Dose: 100 mls/hr Lorazepam (Ativan) 1 mg IVP Q6H PRN PRN Reason: Anxiety Last Admin: 03/24/17 21:29 Dose: 1 mg Scopolamine (Transderm-Scop) [address] [facility] Last Admin: 03/23/17 15:31 Dose: 1 patch Vancomycin HCl (Vancocin (Oral Or Rectal Use)) [address] [facility] Last Admin: 03/25/17 11:49 Dose: 250 mg - Labs Labs: 03/25/17 06:38 03/25/17 06:38 PT 12.0 SECONDS (9.7-12.2) 03/16/17 06:02 INR 1.1 03/16/17 06:02 APTT 33 SECONDS (21-34) 03/16/17 06:02 Assessment and Plan - Assessment and Plan (Free Text) Assessment: Patient seen and examined No events overnight Awake and alert Condition unchanged Physical exam Vital signs noted Generalno distress Necksupple CVSS1-S2 heard Lungsbilateral rhonchi Abdomensoft, ND Extremityno edema Neurononfocal Assessment/plan S/P acute respiratory failureS/P extubated COPD Pneumonia SAH SDH Seizures History of alcohol abuse Continue antibiotics Follow cultures Thiamine/folate Chest PT Bronchodilators Librium Scopolamine patch DVT/GI prophylaxis
--- NOTE | 2017-03-25 14:53 | CP.PCM.PN ---
Subjective - Date & Time of Evaluation Date of Evaluation: 03/25/17 Time of Evaluation: 09:40 - Subjective Subjective: clinically same Objective - Vital Signs/Intake and Output Vital Signs (last 24 hours): Temp Pulse Resp BP Pulse Ox 98.2 F 65 20 118/70 95 03/25/17 09:03 03/25/17 09:03 03/25/17 09:03 03/25/17 14:07 03/25/17 09:03 Intake and Output: 03/25/17 03/25/17 06:59 18:59 Intake Total 1200 Output Total 700 Balance 500 - Medications Medications: Current Medications Albuterol/Ipratropium (Duoneb 3 Mg/0.5 Mg (3 Ml) Ud) 3 ml INH RQ6 [facility] Last Admin: 03/25/17 14:01 Dose: 3 ml Chlordiazepoxide (Librium) 5 mg PO Q12 [facility] Last Admin: 03/25/17 11:04 Dose: 5 mg Famotidine (Pepcid) 20 mg IVP DAILY [facility] Last Admin: 03/25/17 11:04 Dose: Not Given Famotidine (Pepcid) 20 mg PO BID [facility] Last Admin: 03/25/17 11:04 Dose: 20 mg Levetiracetam 500 mg/ Sodium (Chloride) 105 mls @ 420 mls/hr IVPB Q12H [facility] Last Admin: 03/25/17 11:48 Dose: 420 mls/hr Cefepime HCl 1 gm/ Dextrose 50 mls @ 100 mls/hr IVPB Q6H [facility] Last Admin: 03/25/17 11:03 Dose: 100 mls/hr Lorazepam (Ativan) 1 mg IVP Q6H PRN PRN Reason: Anxiety Last Admin: 03/24/17 21:29 Dose: 1 mg Nicotine (Nicoderm Cq) 1 patch TD DAILY [facility] Last Admin: 03/25/17 14:08 Dose: 1 patch Scopolamine (Transderm-Scop) 1 patch TD Q3D [facility] Last Admin: 03/23/17 15:31 Dose: 1 patch Vancomycin HCl (Vancocin (Oral Or Rectal Use)) 250 mg PO Q6H [facility] Last Admin: 03/25/17 11:49 Dose: 250 mg - Labs Labs: 03/25/17 06:38 03/25/17 06:38 PT 12.0 SECONDS (9.7-12.2) 03/16/17 06:02 INR 1.1 03/16/17 06:02 APTT 33 SECONDS (21-34) 03/16/17 06:02 - Constitutional Appears: Well - Head Exam Head Exam: ATRAUMATIC, NORMAL INSPECTION, NORMOCEPHALIC - Eye Exam Eye Exam: EOMI, Normal appearance, PERRL Pupil Exam: NORMAL ACCOMODATION, PERRL - ENT Exam ENT Exam: Mucous Membranes Moist, Normal Exam - Neck Exam Neck Exam: Full ROM, Normal Inspection. absent: Lymphadenopathy - Respiratory Exam Respiratory Exam: Decreased Breath Sounds - Cardiovascular Exam Cardiovascular Exam: REGULAR RHYTHM, +S1, +S2 - GI/Abdominal Exam GI & Abdominal Exam: Soft, Diminished Bowel Sounds - Rectal Exam Rectal Exam: Deferred Assessment and Plan - Assessment and Plan (Free Text) Plan: Follow-up neurologist Follow-up IV Continue Ativan Continue antibiotic Continue Keppra Continue thiamine Continue folic acid Continue Pepcid
--- NOTE | 2017-03-25 15:15 | CP.PCM.CON ---
History of Present Illness - History of Present Illness History of Present Illness: 51 year old homeless male, with PMHx of EtOH Abuse, Hypertension, Arthritis, Anxiety, Pancreatitis, COPD, who presents. Pt is well known to ED staff and presented late last night looking for place to sleep to off his hangover. He returned this afternoon, brought by EMS to ED. EMS report states they found him unconscious, laying on the floor outside with laceration to the right side of head. CT showed R mastoid fracture, small subarachnoid and subdural brain bleeds. Pt had witnessed seizure in ED, and given Ativan IV. Pt post-ictal and not answering questions. PMD: none PMH: as above PSH: Denies Home meds: none Allergies: NKA FH: denies SH: Extensive Etoh abuse hx (at least 1 pint a day for "years), tobacco for >40 years, denies other drugs, homeless Review of Systems - Review of Systems All systems: reviewed and no additional remarkable complaints except - Constitutional Constitutional: absent: As Per HPI, Anorexia, Chills, Daytime Sleepiness, Excessive Sweating, Fatigue, Fever, Frequent Falls, Headache, Increased Appetite , Lethargy, Malaise, Night Sweats, Snoring, Sleep Apnea, Weight Gain, Weight Loss, Weakness, Other - EENT Eyes: absent: As Per HPI, Blind Spots, Blurred Vision, Change in Vision, Decreased Night Vision, Diplopia, Discharge, Dry Eye, Exophthalmos, Floaters, Irritation, Itchy Eyes, Loss of Peripheral Vision, Pain, Photophobia, Requires Corrective Lenses, Sees Flashes, Spots in Vision, Tunnel Vision, Other Visual Disturbances, Loss of Vision, Other Ears: absent: As Per HPI, Decreased Hearing, Ear Discharge, Ear Pain, Tinnitus, Abnormal Hearing, Disequilibrium, Dizziness, Other Nose/Mouth/Throat: absent: As Per HPI, Epistaxis, Nasal Congestion, Nasal Discharge, Nasal Obstruction, Nasal Trauma, Nose Pain, Post Nasal Drip, Sinus Pain, Sinus Pressure, Bleeding Gums, Change in Voice, Dental Pain, Dry Mouth, Dysphagia, Halitosis, Hoarsness, Lip Swelling, Mouth Lesions, Mouth Pain, Odynophagia, Sore Throat, Throat Swelling, Tongue Swelling, Facial Pain, Neck Pain, Neck Mass, Other - Cardiovascular Cardiovascular: absent: As Per HPI, Acrocyanosis, Chest Pain, Chest Pain at Rest , Chest Pain with Activity, Claudication, Diaphoresis, Dyspnea, Dyspnea on Exertion, Edema, Irregular Heart Rhythm, Pain Radiating to Arm/Neck/Jaw, Leg Edema, Leg Ulcers, Lightheadedness, Orthopnea, Palpitations, Paroxysmal Nocturnal Dyspnea, Pedal Edema, Radiating Pain, Rapid Heart Rate, Slow Heart Rate, Syncope, Other - Respiratory Respiratory: absent: As Per HPI, Cough, Dyspnea, Hemoptysis, Dyspnea on Exertion , Wheezing, Snoring, Stridor, Pain on Inspiration, Chest Congestion, Excessive Mucous Production, Change in Mucous Color, Pain with Coughing, Other - Gastrointestinal Gastrointestinal: absent: As Per HPI, Abdominal Pain, Belching, Bloating, Change in Bowel Habits, Change in Stool Character, Coffee Ground Emesis, Constipation, Cramping, Diarrhea, Dyspepsia, Dysphagia, Early Satiety, Excessive Flatus, Fecal Incontinence, Heartburn, Hematemesis, Hematochezia, Loose Stools, Melena, Nausea, Odynophagia, Temesmus, Vomiting, Other - Genitourinary Genitourinary: absent: As Per HPI, Change in Urinary Stream, Difficulty Urinating, Dysuria, Flank Pain, Hematuria, Pyuria, Nocturia, Urinary Incontinence, Urinary Frequency, Urinary Hesitance, Urinary Urgency, Voiding Freq/Small Amts, Freq UTI, Hx Renal/Bladder Calculi, Hx /Renal Surgery, Bladder Distension, Other - Musculoskeletal Musculoskeletal: As Per HPI - Integumentary Integumentary: absent: As Per HPI, Acne, Alopecia, Bleeding Lesions, Change in Hair, Change in Nails, Change in Pigmentation, Changing Lesions, Dry Skin, Erythema, Furuncle, Hirsutism, Lesions, New Lesions, Non-Healing Lesions, Photosensitivity, Pruritus, Rash, Skin Pain, Skin Ulcer, Sores, Striae, Swelling , Unusual Bruising, Wounds, Jaundice, Other - Neurological Neurological: absent: As Per HPI, Abnormal Gait, Abnormal Hearing, Abnormal Movements, Abnormal Speech, Behavioral Changes, Burning Sensations, Confusion, Convulsions, Disequilibrium, Dizziness, Numbness, Focal Weakness, Frequent Falls , Headaches, Lack of Coordination, Loss of Vision, Memory Loss, Paresthesias, Radicular Pain, Restless Legs, Sensory Deficit, Syncope, Tingling, Tremor, Vertigo, Weakness, Other Visual Disturbances, Other - Psychiatric Psychiatric: absent: As Per HPI, Abnormal Sleep Pattern, Anhedonia, Anxiety, Auditory Hallucinations, Behavioral Changes, Change in Appetite, Change in Libido, Confusion, Depression, Difficulty Concentrating, Hallucinations, Homicidal Ideation, Hopelessness, Irritability, Memory Loss, Mood Swings, Panic Attacks, Paranoia, Suicidal Ideation, Visual Hallucinations, Tactile Hallucinations, Other - Endocrine Endocrine: absent: As Per HPI, Change in Body Appearance, Change in Libido, Cold Intolorance, Deepening of Voice, Excessive Sweating, Fatigue, Flushing, Heat Intolorance, Increase in Ring/Shoe/Hat Size, Palpitations, Polydipsia, Polyphagia, Polyuria, Other - Hematologic/Lymphatic Hematologic: absent: As Per HPI, Easy Bleeding, Easy Bruising, Lymphadenopathy, Other Past Patient History - Infectious Disease Hx of Infectious Diseases: None - Tetanus Immunizations Tetanus Immunization: Unknown - Past Medical History & Family History Past Medical History?: Yes - Past Social History Smoking Status: Never Smoked - CARDIAC Hx Hypertension: Yes - PULMONARY Hx Chronic Obstructive Pulmonary Disease (COPD): Yes - NEUROLOGICAL Hx Seizures: Yes - HEENT Hx HEENT Problems: No - ENDOCRINE/METABOLIC Hx Endocrine Disorders: No - INTEGUMENTARY Hx Dermatological Problems: Yes Other/Comment: Stage 2 decubitus both buttocks - MUSCULOSKELETAL/RHEUMATOLOGICAL Hx Arthritis: Yes - GASTROINTESTINAL Hx Pancreatitis: Yes - PSYCHIATRIC Hx Anxiety: Yes Hx Depression: Yes Hx Substance Use: No (DENIED) - SURGICAL HISTORY Hx Surgeries: Yes Other/Comment: left lung surgery - ANESTHESIA Hx Anesthesia: Yes Hx Anesthesia Reactions: No Hx Malignant Hyperthermia: No Meds Allergies/Adverse Reactions: Allergies Allergy/AdvReac Type Severity Reaction Status Date / Time No Known Allergies Allergy Verified 03/09/17 15:19 - Medications Medications: Current Medications Albuterol/Ipratropium (Duoneb 3 Mg/0.5 Mg (3 Ml) Ud) 3 ml INH RQ6 [facility] Last Admin: 03/25/17 14:01 Dose: 3 ml Chlordiazepoxide (Librium) 5 mg PO Q12 [facility] Last Admin: 03/25/17 11:04 Dose: 5 mg Famotidine (Pepcid) 20 mg IVP DAILY [facility] Last Admin: 03/25/17 11:04 Dose: Not Given Famotidine (Pepcid) 20 mg PO BID [facility] Last Admin: 03/25/17 11:04 Dose: 20 mg Levetiracetam 500 mg/ Sodium (Chloride) 105 mls @ 420 mls/hr IVPB Q12H [facility] Last Admin: 03/25/17 11:48 Dose: 420 mls/hr Cefepime HCl 1 gm/ Dextrose 50 mls @ 100 mls/hr IVPB Q6H [facility] Last Admin: 03/25/17 11:03 Dose: 100 mls/hr Lorazepam (Ativan) 1 mg IVP Q6H PRN PRN Reason: Anxiety Last Admin: 03/24/17 21:29 Dose: 1 mg Nicotine (Nicoderm Cq) 1 patch TD DAILY [facility] Last Admin: 03/25/17 14:08 Dose: 1 patch Scopolamine (Transderm-Scop) 1 patch TD Q3D [facility] Last Admin: 03/23/17 15:31 Dose: 1 patch Vancomycin HCl (Vancocin (Oral Or Rectal Use)) 250 mg PO Q6H [facility] Last Admin: 03/25/17 11:49 Dose: 250 mg Physical Exam - Constitutional Appears: Non-toxic, Cachectic, Chronically Ill - Head Exam Head Exam: NORMOCEPHALIC - Eye Exam Eye Exam: PERRL. absent: Scleral icterus - ENT Exam ENT Exam: Mucous Membranes Dry, Normal External Ear Exam, Normal Oropharynx - Neck Exam Neck exam: Negative for: Lymphadenopathy - Respiratory Exam Respiratory Exam: Decreased Breath Sounds, Rhonchi - Cardiovascular Exam Cardiovascular Exam: REGULAR RHYTHM, +S1, +S2 - GI/Abdominal Exam GI & Abdominal Exam: Diminished Bowel Sounds, Soft. absent: Tenderness - Rectal Exam Rectal Exam: Deferred - Exam Exam: NORMAL INSPECTION - Extremities Exam Extremities exam: Negative for: calf tenderness, pedal edema - Back Exam Back exam: absent: CVA tenderness (L), CVA tenderness (R), paraspinal tenderness - Neurological Exam Neurological exam: Alert, CN II-XII Intact, Oriented x3, Reflexes Normal - Psychiatric Exam Psychiatric exam: Depressed - Skin Skin Exam: Dry Results - Vital Signs Recent Vital Signs: Last Vital Signs Temp 98.2 F 03/25/17 09:03 Pulse 65 03/25/17 09:03 Resp 20 03/25/17 09:03 BP 118/70 03/25/17 14:07 Pulse Ox 95 03/25/17 09:03 - Labs Result Diagrams: 03/25/17 06:38 03/25/17 06:38 Labs: Laboratory Results - last 24 hr 03/24/17 03/24/17 03/25/17 20:00 20:00 06:38 WBC 8.2 D 6.9 RBC 3.98 L 4.25 L Hgb 10.0 L 10.7 L Hct 31.5 L 33.9 L MCV 79.0 L 79.8 L MCH 25.2 L 25.3 L MCHC 31.9 L 31.7 L RDW 20.1 H 20.0 H Plt Count 494 H 441 H MPV 7.9 7.9 Neut % (Auto) 66.2 61.4 Lymph % (Auto) 21.4 21.9 [place] % (Auto) 5.8 6.3 Eos % (Auto) 5.1 H 8.0 H Baso % (Auto) 1.5 2.4 H Neut # 5.4 4.2 Lymph # 1.8 1.5 [place] # 0.5 0.4 Eos # 0.4 0.6 Baso # 0.1 0.2 Sodium 128 L Potassium 3.9 Chloride 90 L Carbon Dioxide 23 Anion Gap 18 BUN 6 L Creatinine 0.7 L Est GFR ( Amer) > 60 Est GFR (Non-Af Amer) > 60 Random Glucose 151 H Calcium 7.7 L Total Bilirubin 0.5 AST 48 ALT 55 Alkaline Phosphatase 131 H D Total Protein 7.0 Albumin 3.4 L Globulin 3.6 Albumin/Globulin Ratio 1.0 03/25/17 06:38 WBC RBC Hgb Hct MCV MCH MCHC RDW Plt Count MPV Neut % (Auto) Lymph % (Auto) [place] % (Auto) Eos % (Auto) Baso % (Auto) Neut # Lymph # [place] # Eos # Baso # Sodium 130 L Potassium 4.1 Chloride 93 L Carbon Dioxide 25 Anion Gap 15 BUN 7 L Creatinine 0.5 L Est GFR ( Amer) > 60 Est GFR (Non-Af Amer) > 60 Random Glucose 106 Calcium 8.6 Total Bilirubin 0.6 AST 57 ALT 47 Alkaline Phosphatase 144 H Total Protein 7.5 Albumin 3.6 Globulin 3.9 Albumin/Globulin Ratio 0.9 L Assessment & Plan (1) Pneumonia Status: Acute (2) Subarachnoid bleed Status: Acute (3) Subdural hematoma Status: Acute (4) Alcohol abuse Status: Chronic Priority: Low (5) Seizure Status: Resolved (6) Abdominal pain Status: Acute
[2017-03-26] MEDS: Albuterol-Ipratrop 3 mg / 0.5 (3 ml) UD INH SCH ×2 (01:28→08:25)
[2017-03-26] MEDS: Vancomycin 125 MG/5 ML SOLN (ORAL/RECTAL) PO SCH ×3 (05:15→17:33)
[2017-03-26] MEDS: levETIRAcetam 500 MG in Sodium Chloride 0.9% 100 ML IVPB SCH ×2 (09:37→22:03)
--- NOTE | 2017-03-26 14:04 | CP.PCM.PN ---
Subjective - Date & Time of Evaluation Date of Evaluation: 03/26/17 Time of Evaluation: 14:04 - Subjective Subjective: Patient seen and examined No events overnight Awake and alert Physical exam Vital signs noted Generalno distress Necksupple CVSS1-S2 heard Lungsbilateral rhonchi Abdomensoft, ND Extremityno edema Neurononfocal Assessment/plan S/P acute respiratory failureS/P extubated COPD Pneumonia SAH SDH Seizures History of alcohol abuse Continue antibiotics Follow cultures Thiamine/folate Chest PT Bronchodilators Librium Scopolamine patch DVT/GI prophylaxis Objective - Vital Signs/Intake and Output Vital Signs (last 24 hours): Temp Pulse Resp BP Pulse Ox 97.4 F L 90 20 119/67 97 03/26/17 08:00 03/26/17 08:00 03/26/17 08:00 03/26/17 08:00 03/26/17 08:00 Intake and Output: 03/26/17 03/26/17 06:59 18:59 Intake Total 290 Balance 290 - Medications Medications: Current Medications Famotidine (Pepcid) 20 mg IVP DAILY [facility] Last Admin: 03/26/17 09:42 Dose: Not Given Famotidine (Pepcid) 20 mg PO BID [facility] Last Admin: 03/26/17 09:34 Dose: 20 mg Levetiracetam 500 mg/ Sodium (Chloride) 105 mls @ 420 mls/hr IVPB Q12H [facility] Last Admin: 03/26/17 09:37 Dose: 420 mls/hr Cefepime HCl 1 gm/ Dextrose 50 mls @ 100 mls/hr IVPB Q6H [facility] Last Admin: 03/26/17 09:37 Dose: 100 mls/hr Lorazepam (Ativan) 1 mg IVP Q6H PRN PRN Reason: Anxiety Last Admin: 03/26/17 03:29 Dose: 1 mg Nicotine (Nicoderm Cq) 1 patch TD DAILY [facility] Last Admin: 03/26/17 09:35 Dose: 1 patch Scopolamine (Transderm-Scop) 1 patch TD Q3D [facility] Last Admin: 03/23/17 15:31 Dose: 1 patch Vancomycin HCl (Vancocin (Oral Or Rectal Use)) 250 mg PO Q6H [facility] Last Admin: 03/26/17 12:52 Dose: 250 mg - Labs Labs: 03/25/17 06:38 03/25/17 06:38 PT 12.0 SECONDS (9.7-12.2) 03/16/17 06:02 INR 1.1 03/16/17 06:02 APTT 33 SECONDS (21-34) 03/16/17 06:02
--- NOTE | 2017-03-26 18:14 | CP.PCM.PN ---
Subjective - Date & Time of Evaluation Date of Evaluation: 03/26/17 Time of Evaluation: 08:40 - Subjective Subjective: clinically same Objective - Vital Signs/Intake and Output Vital Signs (last 24 hours): Temp Pulse Resp BP Pulse Ox 97.4 F L 90 20 119/67 97 03/26/17 08:00 03/26/17 08:00 03/26/17 08:00 03/26/17 08:00 03/26/17 08:00 Intake and Output: 03/26/17 03/26/17 06:59 18:59 Intake Total 290 750 Balance 290 750 - Medications Medications: Current Medications Famotidine (Pepcid) 20 mg IVP DAILY [facility] Last Admin: 03/26/17 09:42 Dose: Not Given Famotidine (Pepcid) 20 mg PO BID [facility] Last Admin: 03/26/17 17:33 Dose: 20 mg Levetiracetam 500 mg/ Sodium (Chloride) 105 mls @ 420 mls/hr IVPB Q12H [facility] Last Admin: 03/26/17 09:37 Dose: 420 mls/hr Cefepime HCl 1 gm/ Dextrose 50 mls @ 100 mls/hr IVPB Q6H [facility] Last Admin: 03/26/17 17:33 Dose: 100 mls/hr Lorazepam (Ativan) 1 mg IVP Q6H PRN PRN Reason: Anxiety Last Admin: 03/26/17 17:33 Dose: 1 mg Nicotine (Nicoderm Cq) 1 patch TD DAILY [facility] Last Admin: 03/26/17 09:35 Dose: 1 patch Scopolamine (Transderm-Scop) 1 patch TD Q3D [facility] Last Admin: 03/26/17 14:59 Dose: 1 patch Vancomycin HCl (Vancocin (Oral Or Rectal Use)) 250 mg PO Q6H [facility] Last Admin: 03/26/17 17:33 Dose: 250 mg - Labs Labs: 03/25/17 06:38 03/25/17 06:38 PT 12.0 SECONDS (9.7-12.2) 03/16/17 06:02 INR 1.1 03/16/17 06:02 APTT 33 SECONDS (21-34) 03/16/17 06:02 - Constitutional Appears: Well - Head Exam Head Exam: ATRAUMATIC, NORMAL INSPECTION, NORMOCEPHALIC - Eye Exam Eye Exam: EOMI, Normal appearance, PERRL Pupil Exam: NORMAL ACCOMODATION, PERRL - ENT Exam ENT Exam: Mucous Membranes Moist, Normal Exam - Neck Exam Neck Exam: Full ROM, Normal Inspection. absent: Lymphadenopathy - Respiratory Exam Respiratory Exam: Decreased Breath Sounds - Cardiovascular Exam Cardiovascular Exam: REGULAR RHYTHM, +S1, +S2 - GI/Abdominal Exam GI & Abdominal Exam: Soft, Diminished Bowel Sounds - Rectal Exam Rectal Exam: Deferred Assessment and Plan - Assessment and Plan (Free Text) Plan: Follow-up neurologist Follow-up IV Continue Ativan Continue antibiotic Continue Keppra Continue thiamine Continue folic acid Continue Pepcid
[2017-03-27] MEDS: Vancomycin 125 MG/5 ML SOLN (ORAL/RECTAL) PO SCH ×4 (00:06→17:57)
[2017-03-27] MEDS: levETIRAcetam 500 MG in Sodium Chloride 0.9% 100 ML IVPB SCH ×2 (10:32→21:12)
--- NOTE | 2017-03-27 11:17 | CP.PCM.PN ---
Subjective - Date & Time of Evaluation Date of Evaluation: 03/27/17 Time of Evaluation: 09:20 - Subjective Subjective: clinically same Objective - Vital Signs/Intake and Output Vital Signs (last 24 hours): Temp Pulse Resp BP Pulse Ox 98.3 F 60 20 109/70 94 L 03/27/17 07:17 03/27/17 07:17 03/27/17 07:17 03/27/17 07:17 03/27/17 07:17 Intake and Output: 03/27/17 03/27/17 06:59 18:59 Intake Total 290 Balance 290 - Medications Medications: Current Medications Famotidine (Pepcid) 20 mg PO BID [facility] Last Admin: 03/27/17 10:33 Dose: 20 mg Levetiracetam 500 mg/ Sodium (Chloride) 105 mls @ 420 mls/hr IVPB Q12H [facility] Last Admin: 03/27/17 10:32 Dose: 420 mls/hr Cefepime HCl 1 gm/ Dextrose 50 mls @ 100 mls/hr IVPB Q6H [facility] Last Admin: 03/27/17 10:32 Dose: 100 mls/hr Lorazepam (Ativan) 1 mg IVP Q6H PRN PRN Reason: Anxiety Last Admin: 03/26/17 17:33 Dose: 1 mg Nicotine (Nicoderm Cq) 1 patch TD DAILY [facility] Last Admin: 03/27/17 10:32 Dose: 1 patch Scopolamine (Transderm-Scop) 1 patch TD Q3D [facility] Last Admin: 03/26/17 14:59 Dose: 1 patch Vancomycin HCl (Vancocin (Oral Or Rectal Use)) 250 mg PO Q6H [facility] Last Admin: 03/27/17 05:09 Dose: 250 mg - Labs Labs: 03/25/17 06:38 03/25/17 06:38 PT 12.0 SECONDS (9.7-12.2) 03/16/17 06:02 INR 1.1 03/16/17 06:02 APTT 33 SECONDS (21-34) 03/16/17 06:02 - Constitutional Appears: Well - Head Exam Head Exam: ATRAUMATIC, NORMAL INSPECTION, NORMOCEPHALIC - Eye Exam Eye Exam: EOMI, Normal appearance, PERRL Pupil Exam: NORMAL ACCOMODATION, PERRL - ENT Exam ENT Exam: Mucous Membranes Moist, Normal Exam - Neck Exam Neck Exam: Full ROM, Normal Inspection. absent: Lymphadenopathy - Respiratory Exam Respiratory Exam: Decreased Breath Sounds - Cardiovascular Exam Cardiovascular Exam: REGULAR RHYTHM, +S1, +S2 - GI/Abdominal Exam GI & Abdominal Exam: Soft, Diminished Bowel Sounds - Rectal Exam Rectal Exam: Deferred Assessment and Plan - Assessment and Plan (Free Text) Plan: Follow-up neurologist Follow-up IV Continue Ativan Continue antibiotic Continue Keppra Continue thiamine Continue folic acid Continue Pepcid
--- NOTE | 2017-03-27 12:28 | CP.PCM.PN ---
Subjective - Date & Time of Evaluation Date of Evaluation: 03/27/17 Time of Evaluation: 06:00 - Subjective Subjective: seen on rounds discussed with PMD cont rx Objective - Vital Signs/Intake and Output Vital Signs (last 24 hours): Temp Pulse Resp BP Pulse Ox 98.3 F 60 20 109/70 94 L 03/27/17 07:17 03/27/17 07:17 03/27/17 07:17 03/27/17 07:17 03/27/17 07:17 Intake and Output: 03/27/17 03/27/17 06:59 18:59 Intake Total 290 Balance 290 - Medications Medications: Current Medications Famotidine (Pepcid) 20 mg PO BID [facility] Last Admin: 03/27/17 10:33 Dose: 20 mg Levetiracetam 500 mg/ Sodium (Chloride) 105 mls @ 420 mls/hr IVPB Q12H [facility] Last Admin: 03/27/17 10:32 Dose: 420 mls/hr Cefepime HCl 1 gm/ Dextrose 50 mls @ 100 mls/hr IVPB Q6H [facility] Last Admin: 03/27/17 10:32 Dose: 100 mls/hr Lorazepam (Ativan) 1 mg IVP Q6H PRN PRN Reason: Anxiety Last Admin: 03/26/17 17:33 Dose: 1 mg Nicotine (Nicoderm Cq) 1 patch TD DAILY [facility] Last Admin: 03/27/17 10:32 Dose: 1 patch Scopolamine (Transderm-Scop) 1 patch TD Q3D [facility] Last Admin: 03/26/17 14:59 Dose: 1 patch Vancomycin HCl (Vancocin (Oral Or Rectal Use)) 250 mg PO Q6H [facility] Last Admin: 03/27/17 05:09 Dose: 250 mg - Labs Labs: 03/25/17 06:38 03/25/17 06:38 PT 12.0 SECONDS (9.7-12.2) 03/16/17 06:02 INR 1.1 03/16/17 06:02 APTT 33 SECONDS (21-34) 03/16/17 06:02 Assessment and Plan (1) Pneumonia Status: Acute (2) Subarachnoid bleed Status: Acute (3) Subdural hematoma Status: Acute (4) Alcohol abuse Status: Chronic (5) Seizure Status: Resolved (6) Abdominal pain Status: Acute
--- NOTE | 2017-03-27 15:34 | CP.PCM.PN ---
Subjective - Date & Time of Evaluation Date of Evaluation: 03/27/17 Time of Evaluation: 15:34 - Subjective Subjective: Patient seen and examined No events overnight Awake and alert Physical exam Vital signs noted Generalno distress Necksupple CVSS1-S2 heard Lungsbilateral rhonchi Abdomensoft, ND Extremityno edema Neurononfocal Assessment/plan S/P acute respiratory failureS/P extubated COPD Pneumonia SAH SDH Seizures History of alcohol abuse Continue antibiotics Follow cultures Thiamine/folate Chest PT Bronchodilators Librium Scopolamine patch DVT/GI prophylaxis Objective - Vital Signs/Intake and Output Vital Signs (last 24 hours): Temp Pulse Resp BP Pulse Ox 98.3 F 60 20 109/70 94 L 03/27/17 07:17 03/27/17 07:17 03/27/17 07:17 03/27/17 07:17 03/27/17 07:17 Intake and Output: 03/27/17 03/27/17 06:59 18:59 Intake Total 290 Balance 290 - Medications Medications: Current Medications Famotidine (Pepcid) 20 mg PO BID [facility] Last Admin: 03/27/17 10:33 Dose: 20 mg Levetiracetam 500 mg/ Sodium (Chloride) 105 mls @ 420 mls/hr IVPB Q12H [facility] Last Admin: 03/27/17 10:32 Dose: 420 mls/hr Cefepime HCl 1 gm/ Dextrose 50 mls @ 100 mls/hr IVPB Q6H [facility] Last Admin: 03/27/17 10:32 Dose: 100 mls/hr Lorazepam (Ativan) 1 mg IVP Q6H PRN PRN Reason: Anxiety Last Admin: 03/26/17 17:33 Dose: 1 mg Nicotine (Nicoderm Cq) 1 patch TD DAILY [facility] Last Admin: 03/27/17 10:32 Dose: 1 patch Scopolamine (Transderm-Scop) 1 patch TD Q3D [facility] Last Admin: 03/26/17 14:59 Dose: 1 patch Vancomycin HCl (Vancocin (Oral Or Rectal Use)) 250 mg PO Q6H [facility] Last Admin: 03/27/17 12:46 Dose: 250 mg - Labs Labs: 03/25/17 06:38 03/25/17 06:38 PT 12.0 SECONDS (9.7-12.2) 03/16/17 06:02 INR 1.1 03/16/17 06:02 APTT 33 SECONDS (21-34) 03/16/17 06:02
[2017-03-28] MEDS: Vancomycin 125 MG/5 ML SOLN (ORAL/RECTAL) PO SCH ×4 (00:50→19:00)
[2017-03-28] MEDS: levETIRAcetam 500 MG in Sodium Chloride 0.9% 100 ML IVPB SCH ×2 (10:01→21:53)
--- NOTE | 2017-03-28 14:04 | CP.PCM.PN ---
Subjective - Date & Time of Evaluation Date of Evaluation: 03/28/17 Time of Evaluation: 14:04 - Subjective Subjective: Patient seen and examined No events overnight Awake and alert Physical exam Vital signs noted Generalno distress Necksupple CVSS1-S2 heard Lungsbilateral rhonchi Abdomensoft, ND Extremityno edema Neurononfocal Assessment/plan S/P acute respiratory failureS/P extubated COPD Pneumonia SAH SDH Seizures History of alcohol abuse Continue antibiotics Follow cultures Thiamine/folate Chest PT Bronchodilators Librium Scopolamine patch DVT/GI prophylaxis Objective - Vital Signs/Intake and Output Vital Signs (last 24 hours): Temp Pulse Resp BP Pulse Ox 98 F 57 L 20 127/77 93 L 03/28/17 07:59 03/28/17 07:59 03/28/17 07:59 03/28/17 07:59 03/28/17 07:59 Intake and Output: 03/28/17 03/28/17 06:59 18:59 Intake Total 680 Balance 680 - Medications Medications: Current Medications Famotidine (Pepcid) 20 mg PO BID [facility] Last Admin: 03/28/17 10:00 Dose: 20 mg Levetiracetam 500 mg/ Sodium (Chloride) 105 mls @ 420 mls/hr IVPB Q12H [facility] Last Admin: 03/28/17 10:01 Dose: 420 mls/hr Cefepime HCl 1 gm/ Dextrose 50 mls @ 100 mls/hr IVPB Q6H [facility] Last Admin: 03/28/17 10:00 Dose: 100 mls/hr Nicotine (Nicoderm Cq) 1 patch TD DAILY [facility] Last Admin: 03/28/17 10:00 Dose: 1 patch Scopolamine (Transderm-Scop) 1 patch TD Q3D [facility] Last Admin: 03/26/17 14:59 Dose: 1 patch Vancomycin HCl (Vancocin (Oral Or Rectal Use)) 250 mg PO Q6H [facility] Last Admin: 03/28/17 13:21 Dose: 250 mg - Labs Labs: 03/25/17 06:38 03/25/17 06:38 PT 12.0 SECONDS (9.7-12.2) 03/16/17 06:02 INR 1.1 03/16/17 06:02 APTT 33 SECONDS (21-34) 03/16/17 06:02
--- NOTE | 2017-03-28 18:29 | CP.PCM.PN ---
Subjective - Date & Time of Evaluation Date of Evaluation: 03/28/17 Time of Evaluation: 10:40 - Subjective Subjective: clinically same Objective - Vital Signs/Intake and Output Vital Signs (last 24 hours): Temp Pulse Resp BP Pulse Ox 97.9 F 52 L 18 164/85 H 95 03/28/17 15:15 03/28/17 15:15 03/28/17 15:15 03/28/17 15:15 03/28/17 15:15 Intake and Output: 03/28/17 03/28/17 06:59 18:59 Intake Total 680 680 Balance 680 680 - Medications Medications: Current Medications Famotidine (Pepcid) 20 mg PO BID [facility] Last Admin: 03/28/17 18:07 Dose: 20 mg Levetiracetam 500 mg/ Sodium (Chloride) 105 mls @ 420 mls/hr IVPB Q12H [facility] Last Admin: 03/28/17 10:01 Dose: 420 mls/hr Cefepime HCl 1 gm/ Dextrose 50 mls @ 100 mls/hr IVPB Q6H [facility] Last Admin: 03/28/17 16:09 Dose: 100 mls/hr Nicotine (Nicoderm Cq) 1 patch TD DAILY [facility] Last Admin: 03/28/17 10:00 Dose: 1 patch Scopolamine (Transderm-Scop) 1 patch TD Q3D [facility] Last Admin: 03/26/17 14:59 Dose: 1 patch Vancomycin HCl (Vancocin (Oral Or Rectal Use)) 250 mg PO Q6H [facility] Last Admin: 03/28/17 13:21 Dose: 250 mg - Labs Labs: 03/25/17 06:38 03/25/17 06:38 PT 12.0 SECONDS (9.7-12.2) 03/16/17 06:02 INR 1.1 03/16/17 06:02 APTT 33 SECONDS (21-34) 03/16/17 06:02 - Constitutional Appears: Well - Head Exam Head Exam: ATRAUMATIC, NORMAL INSPECTION, NORMOCEPHALIC - Eye Exam Eye Exam: EOMI, Normal appearance, PERRL Pupil Exam: NORMAL ACCOMODATION, PERRL - ENT Exam ENT Exam: Mucous Membranes Moist, Normal Exam - Neck Exam Neck Exam: Full ROM, Normal Inspection. absent: Lymphadenopathy - Respiratory Exam Respiratory Exam: Decreased Breath Sounds - Cardiovascular Exam Cardiovascular Exam: REGULAR RHYTHM, +S1, +S2 - GI/Abdominal Exam GI & Abdominal Exam: Soft, Diminished Bowel Sounds - Rectal Exam Rectal Exam: Deferred Assessment and Plan - Assessment and Plan (Free Text) Plan: Follow-up neurologist Follow-up IV Continue Ativan Continue antibiotic Continue Keppra Continue thiamine Continue folic acid Continue Pepcid
[2017-03-29] MEDS: Vancomycin 125 MG/5 ML SOLN (ORAL/RECTAL) PO SCH ×3 (00:30→16:19)
[2017-03-29] MEDS: levETIRAcetam 500 MG in Sodium Chloride 0.9% 100 ML IVPB SCH ×2 (10:05→21:34)
--- NOTE | 2017-03-29 16:37 | CP.PCM.PN ---
Subjective - Date & Time of Evaluation Date of Evaluation: 03/29/17 Time of Evaluation: 16:31 - Subjective Subjective: 51 y/o male seen and examined. Pt admitted for Right mastoid fracture, small subarachnoid and subdural bleed, Patient complaints of intermittent headache, awake, alert, respiration easy and unlabored. PERRLA, speech clear, no facial dropping, no neuro deficit, NAD, tylenol 650 mg po ordered, will continue to monitor patient. Objective - Vital Signs/Intake and Output Vital Signs (last 24 hours): Temp Pulse Resp BP Pulse Ox 97.9 F 56 L 19 114/76 96 03/29/17 08:00 03/29/17 08:00 03/29/17 08:00 03/29/17 08:00 03/29/17 08:00 Intake and Output: 03/29/17 03/29/17 06:59 18:59 Intake Total 570 680 Balance 570 680 - Medications Medications: Current Medications Acetaminophen (Tylenol 325mg Tab) 650 mg PO STAT ST[facility] Stop: 03/29/17 16:29 Famotidine (Pepcid) 20 mg PO BID [facility] Last Admin: 03/29/17 10:04 Dose: 20 mg Levetiracetam 500 mg/ Sodium (Chloride) 105 mls @ 420 mls/hr IVPB Q12H [facility] Last Admin: 03/29/17 10:05 Dose: 420 mls/hr Nicotine (Nicoderm Cq) 1 patch TD DAILY [facility] Last Admin: 03/29/17 10:04 Dose: 1 patch Scopolamine (Transderm-Scop) 1 patch TD Q3D [facility] Last Admin: 03/26/17 14:59 Dose: 1 patch - Labs Labs: 03/25/17 06:38 03/25/17 06:38 PT 12.0 SECONDS (9.7-12.2) 03/16/17 06:02 INR 1.1 03/16/17 06:02 APTT 33 SECONDS (21-34) 03/16/17 06:02
--- NOTE | 2017-03-29 18:54 | CP.PCM.PN ---
Subjective - Date & Time of Evaluation Date of Evaluation: 03/29/17 Time of Evaluation: 10:20 - Subjective Subjective: clinically same Objective - Vital Signs/Intake and Output Vital Signs (last 24 hours): Temp Pulse Resp BP Pulse Ox 97.7 F 72 20 110/74 98 03/29/17 16:00 03/29/17 16:00 03/29/17 16:00 03/29/17 16:00 03/29/17 16:00 Intake and Output: 03/29/17 03/29/17 06:59 18:59 Intake Total 570 680 Balance 570 680 - Medications Medications: Current Medications Famotidine (Pepcid) 20 mg PO BID [facility] Last Admin: 03/29/17 17:16 Dose: 20 mg Levetiracetam 500 mg/ Sodium (Chloride) 105 mls @ 420 mls/hr IVPB Q12H [facility] Last Admin: 03/29/17 10:05 Dose: 420 mls/hr Nicotine (Nicoderm Cq) 1 patch TD DAILY [facility] Last Admin: 03/29/17 10:04 Dose: 1 patch Scopolamine (Transderm-Scop) 1 patch TD Q3D [facility] Last Admin: 03/29/17 16:45 Dose: 1 patch - Labs Labs: 03/25/17 06:38 03/25/17 06:38 PT 12.0 SECONDS (9.7-12.2) 03/16/17 06:02 INR 1.1 03/16/17 06:02 APTT 33 SECONDS (21-34) 03/16/17 06:02 - Constitutional Appears: Well - Head Exam Head Exam: ATRAUMATIC, NORMAL INSPECTION, NORMOCEPHALIC - Eye Exam Eye Exam: EOMI, Normal appearance, PERRL Pupil Exam: NORMAL ACCOMODATION, PERRL - ENT Exam ENT Exam: Mucous Membranes Moist, Normal Exam - Neck Exam Neck Exam: Full ROM, Normal Inspection. absent: Lymphadenopathy - Respiratory Exam Respiratory Exam: Decreased Breath Sounds - Cardiovascular Exam Cardiovascular Exam: REGULAR RHYTHM, +S1, +S2 - GI/Abdominal Exam GI & Abdominal Exam: Soft, Diminished Bowel Sounds - Rectal Exam Rectal Exam: Deferred Assessment and Plan (1) Abdominal pain Status: Acute (2) Abrasion Status: Acute (3) Alcohol abuse with intoxication Status: Acute (4) Alcohol intoxication Status: Acute (5) Alcohol withdrawal Status: Acute (6) Alcohol withdrawal seizure Status: Acute (7) Bacteremia Status: Acute (8) Bilateral lower extremity edema Status: Acute (9) Breakthrough seizure Status: Acute (10) Cellulitis Status: Acute (11) Cellulitis of lower extremity Status: Acute (12) Chronic calcific pancreatitis Status: Acute (13) Dehydration Status: Acute (14) Diarrhea Status: Acute (15) Dressing change/suture removal Status: Acute (16) Drug dependence Status: Acute (17) Duodenitis Status: Acute (18) Electrolyte imbalance Status: Acute (19) Elevated alkaline phosphatase level Status: Acute (20) Facial laceration Status: Acute (21) Fever Status: Acute (22) Head trauma Status: Acute (23) Homelessness Status: Acute (24) Hyperphosphatemia Status: Acute (25) Hypokalemia Status: Acute (26) Hypokalemia with normal acid-base balance Status: Acute (27) Hypomagnesemia Status: Acute (28) Hypothermia Status: Acute (29) Low vitamin D level Status: Acute (30) Pancreatic mass Status: Acute (31) Pancreatitis, acute Status: Acute (32) Periapical abscess Status: Acute (33) Pneumonia Status: Acute (34) Pneumonia Status: Acute (35) Prophylactic measure Status: Acute (36) Respiratory failure with hypoxia and hypercapnia Status: Acute (37) Seizure Status: Acute (38) Skull fracture Status: Acute (39) Subarachnoid bleed Status: Acute (40) Subdural hematoma Status: Acute (41) Subdural hemorrhage Status: Acute (42) Thrombocythemia Status: Acute (43) Thrombocytopenia Status: Acute (44) Tobacco abuse Status: Acute (45) Tremors of nervous system Status: Acute (46) Vitamin D deficiency Status: Acute (47) Acute on chronic pancreatitis Status: Chronic (48) Alcohol abuse Status: Chronic (49) Alcohol abuse Status: Chronic (50) Alcohol dependence Status: Chronic (51) Anemia Status: Chronic (52) Anxiety and depression Status: Chronic (53) Aspiration into lower respiratory tract Status: Chronic (54) COPD (chronic obstructive pulmonary disease) Status: Chronic (55) Cholecystitis Status: Chronic (56) Chronic pancreatitis Status: Chronic (57) Depression Status: Chronic (58) Hypertension Status: Chronic (59) Peripheral motor neuropathy Status: Chronic (60) Empyema Status: Suspected (61) Seizure Status: Resolved - Assessment and Plan (Free Text) Plan: Follow-up neurologist Follow-up IV Continue Ativan Continue antibiotic Continue Keppra Continue thiamine Continue folic acid Continue Pepcid
[2017-03-30 11:08] LABS: BASO # 0.1 K/uL (0.0-0.2); BASO % 3.2 % (0.0-2.0); EOS # 0.3 K/uL (0.0-0.7); HEMATOCRIT 36.5 % (35.0-51.0); LYMPH # 1.2 K/uL (1.0-4.3); LYMPH % 30.8 % (20.0-40.0); MEAN CELL VOLUME 79.8 fL (80.0-94.0); MEAN CORPUSCULAR HEMOGLOBIN 25.5 pg (27.0-31.0); MEAN CORPUSCULAR HGB CONC 31.9 g/dL (33.0-37.0); MEAN PLATELET VOLUME 8.3 fL (7.2-11.7); MONO # 0.3 K/uL (0.0-0.8); MONO % 6.8 % (0.0-10.0); NRBC % 0.1 % (0.0-2.0); RED CELL DISTRIBUTION WIDTH 19.3 % (11.5-14.5); WHITE BLOOD COUNT 3.9 K/uL (4.8-10.8)
[2017-03-30 11:19] LABS: PLATELET COUNT 300 K/uL (130-400)
[2017-03-30 11:26] LABS: CHLORIDE 92 mmol/L (98-107); POTASSIUM 3.9 mmol/L (3.6-5.2); SODIUM 134 mmol/L (132-148)
[2017-03-30 11:28] LABS: ALKALINE PHOSPHATASE 114 U/L (38-126); AST/SGOT 42 U/L (17-59); BILIRUBIN,TOTAL 0.6 mg/dL (0.2-1.3); CARBON DIOXIDE 27 mmol/L (22-30); GFR AFRICAN-AMERICAN > 60; TOTAL PROTEIN 7.9 g/dL (6.3-8.3)
[2017-03-30 11:29] LABS: ALB/GLOB RATIO 1.1 (1.0-2.1); ALT/SGPT 35 U/L (21-72); BLOOD UREA NITROGEN 8 mg/dL (9-20); CALCIUM 9.1 mg/dl (8.6-10.4); GLUCOSE,RANDOM 197 mg/dL (75-110)
--- NOTE | 2017-03-30 11:42 | CT ---
PROCEDURE: CT HEAD WITHOUT CONTRAST. HISTORY: new onset Headache DX smallsubarachnoid and subdur COMPARISON: 03/11/2017. TECHNIQUE: Axial computed tomography images were obtained through the head/brain without intravenous contrast. Radiation dose: Total exam DLP = mGy-cm. This CT exam was performed using one or more of the following dose reduction techniques: Automated exposure control, adjustment of the mA and/or kV according to patient size, and/or use of iterative reconstruction technique. FINDINGS: HEMORRHAGE: Interval improvement and subarachnoid hemorrhage left temporal lobe. Resolution of prior areas of hemorrhage in the high right parietal region. Persistent extra-axial fluid collection without associated edema or mass effect. BRAIN: No mass effect or edema. No atrophy or chronic microvascular ischemic changes. VENTRICLES: Unremarkable. No hydrocephalus. CALVARIUM: Unremarkable. PARANASAL SINUSES: Unremarkable as visualized. No significant inflammatory changes. MASTOID AIR CELLS: Persistent fluid in the right mastoid air cells. Stable right temporal bone fracture. OTHER FINDINGS: None. IMPRESSION: No new acute hemorrhagic process. Resolution of subarachnoid and intra-axial hemorrhage is apparent on the prior study. Persistent extra-axial fluid collection without evidence of an acute hemorrhagic component. There is no edema or mass effect or evidence of acute territorial infarction on the present study.
[2017-03-30] MEDS: levETIRAcetam 500 MG in Sodium Chloride 0.9% 100 ML IVPB SCH ×2 (11:44→21:42)
[2017-03-30 12:00] LABS: BASOPHIL 2 % (0-2); EOSINOPHIL 8 % (0-4); LARGE PLATELETS PRESENT; NEUTROPHIL 50 % (50-75); REACTIVE LYMPHOCYTES 1 % (0-0); TOTAL CELLS COUNTED 100
--- NOTE | 2017-03-30 13:37 | CP.PCM.PN ---
Subjective - Date & Time of Evaluation Date of Evaluation: 03/30/17 Time of Evaluation: 09:40 - Subjective Subjective: clinically same Objective - Vital Signs/Intake and Output Vital Signs (last 24 hours): Temp Pulse Resp BP Pulse Ox 98.1 F 72 20 107/68 96 03/30/17 07:05 03/30/17 07:05 03/30/17 07:05 03/30/17 07:05 03/30/17 07:05 - Medications Medications: Current Medications Famotidine (Pepcid) 20 mg PO BID [facility] Last Admin: 03/30/17 11:45 Dose: 20 mg Levetiracetam 500 mg/ Sodium (Chloride) 105 mls @ 420 mls/hr IVPB Q12H [facility] Last Admin: 03/30/17 11:44 Dose: 420 mls/hr Nicotine (Nicoderm Cq) 1 patch TD DAILY [facility] Last Admin: 03/30/17 11:45 Dose: 1 patch Scopolamine (Transderm-Scop) 1 patch TD Q3D [facility] Last Admin: 03/29/17 16:45 Dose: 1 patch - Labs Labs: 03/30/17 11:03 03/30/17 11:03 PT 12.0 SECONDS (9.7-12.2) 03/16/17 06:02 INR 1.1 03/16/17 06:02 APTT 33 SECONDS (21-34) 03/16/17 06:02 - Constitutional Appears: Well - Head Exam Head Exam: ATRAUMATIC, NORMAL INSPECTION, NORMOCEPHALIC - Eye Exam Eye Exam: EOMI, Normal appearance, PERRL Pupil Exam: NORMAL ACCOMODATION, PERRL - ENT Exam ENT Exam: Mucous Membranes Moist, Normal Exam - Neck Exam Neck Exam: Full ROM, Normal Inspection. absent: Lymphadenopathy - Respiratory Exam Respiratory Exam: Decreased Breath Sounds - Cardiovascular Exam Cardiovascular Exam: REGULAR RHYTHM, +S1, +S2 - GI/Abdominal Exam GI & Abdominal Exam: Soft, Diminished Bowel Sounds - Rectal Exam Rectal Exam: Deferred Assessment and Plan - Assessment and Plan (Free Text) Plan: Follow-up neurologist Follow-up IV Continue Ativan Continue antibiotic Continue Keppra Continue thiamine Continue folic acid Continue Pepcid
--- NOTE | 2017-03-30 14:52 | CP.PCM.PN ---
Subjective - Date & Time of Evaluation Date of Evaluation: 03/30/17 Time of Evaluation: 06:00 - Subjective Subjective: no new findings discussed on rounds Objective - Vital Signs/Intake and Output Vital Signs (last 24 hours): Temp Pulse Resp BP Pulse Ox 98.1 F 72 20 107/68 96 03/30/17 07:05 03/30/17 07:05 03/30/17 07:05 03/30/17 07:05 03/30/17 07:05 - Medications Medications: Current Medications Famotidine (Pepcid) 20 mg PO BID [facility] Last Admin: 03/30/17 11:45 Dose: 20 mg Levetiracetam 500 mg/ Sodium (Chloride) 105 mls @ 420 mls/hr IVPB Q12H [facility] Last Admin: 03/30/17 11:44 Dose: 420 mls/hr Nicotine (Nicoderm Cq) 1 patch TD DAILY [facility] Last Admin: 03/30/17 11:45 Dose: 1 patch Scopolamine (Transderm-Scop) 1 patch TD Q3D [facility] Last Admin: 03/29/17 16:45 Dose: 1 patch - Labs Labs: 03/30/17 11:03 03/30/17 11:03 PT 12.0 SECONDS (9.7-12.2) 03/16/17 06:02 INR 1.1 03/16/17 06:02 APTT 33 SECONDS (21-34) 03/16/17 06:02 - Constitutional Appears: Non-toxic, Chronically Ill - Head Exam Head Exam: NORMOCEPHALIC - Eye Exam Eye Exam: PERRL. absent: Scleral icterus - ENT Exam ENT Exam: Mucous Membranes Dry - Neck Exam Neck Exam: absent: Lymphadenopathy - Respiratory Exam Respiratory Exam: Decreased Breath Sounds, Rhonchi - Cardiovascular Exam Cardiovascular Exam: REGULAR RHYTHM - GI/Abdominal Exam GI & Abdominal Exam: Distended, Soft - Rectal Exam Rectal Exam: Deferred - Exam Exam: NORMAL INSPECTION Assessment and Plan (1) Pneumonia Status: Acute (2) Subarachnoid bleed Status: Acute (3) Subdural hematoma Status: Acute (4) Alcohol abuse Status: Chronic (5) Seizure Status: Resolved (6) Abdominal pain Status: Acute
[2017-03-31] MEDS: levETIRAcetam 500 MG in Sodium Chloride 0.9% 100 ML IVPB SCH ×2 (10:33→22:16)
[2017-03-31 12:06] LABS: BILIRUBIN,TOTAL 0.6 mg/dL (0.2-1.3); CHLORIDE 93 mmol/L (98-107); GFR AFRICAN-AMERICAN > 60; POTASSIUM 4.6 mmol/L (3.6-5.2); SODIUM 131 mmol/L (132-148)
[2017-03-31 12:07] LABS: ALKALINE PHOSPHATASE 94 U/L (38-126); ALT/SGPT 35 U/L (21-72); AST/SGOT 45 U/L (17-59); BLOOD UREA NITROGEN 6 mg/dL (9-20); CARBON DIOXIDE 23 mmol/L (22-30); GLUCOSE,RANDOM 126 mg/dL (75-110); TOTAL PROTEIN 7.4 g/dL (6.3-8.3)
--- NOTE | 2017-03-31 13:29 | CP.PCM.PN ---
Subjective - Date & Time of Evaluation Date of Evaluation: 03/31/17 Time of Evaluation: 09:40 - Subjective Subjective: clinically same Objective - Vital Signs/Intake and Output Vital Signs (last 24 hours): Temp Pulse Resp BP Pulse Ox 98.1 F 55 L 18 129/79 96 03/31/17 07:00 03/31/17 07:00 03/31/17 07:00 03/31/17 07:00 03/31/17 07:00 - Medications Medications: Current Medications Famotidine (Pepcid) 20 mg PO BID [facility] Last Admin: 03/31/17 10:34 Dose: 20 mg Levetiracetam 500 mg/ Sodium (Chloride) 105 mls @ 420 mls/hr IVPB Q12H [facility] Last Admin: 03/31/17 10:33 Dose: 420 mls/hr Nicotine (Nicoderm Cq) 1 patch TD DAILY [facility] Last Admin: 03/31/17 10:34 Dose: 1 patch Scopolamine (Transderm-Scop) 1 patch TD Q3D [facility] Last Admin: 03/29/17 16:45 Dose: 1 patch - Labs Labs: 03/30/17 11:03 03/31/17 11:42 PT 12.0 SECONDS (9.7-12.2) 03/16/17 06:02 INR 1.1 03/16/17 06:02 APTT 33 SECONDS (21-34) 03/16/17 06:02 - Constitutional Appears: Well - Head Exam Head Exam: ATRAUMATIC, NORMAL INSPECTION, NORMOCEPHALIC - Eye Exam Eye Exam: EOMI, Normal appearance, PERRL Pupil Exam: NORMAL ACCOMODATION, PERRL - ENT Exam ENT Exam: Mucous Membranes Moist, Normal Exam - Neck Exam Neck Exam: Full ROM, Normal Inspection. absent: Lymphadenopathy - Respiratory Exam Respiratory Exam: Decreased Breath Sounds - Cardiovascular Exam Cardiovascular Exam: REGULAR RHYTHM, +S1, +S2 - GI/Abdominal Exam GI & Abdominal Exam: Soft, Diminished Bowel Sounds - Rectal Exam Rectal Exam: Deferred Assessment and Plan - Assessment and Plan (Free Text) Plan: Follow-up neurologist Follow-up IV Continue Ativan Continue antibiotic Continue Keppra Continue thiamine Continue folic acid Continue Pepcid
[2017-03-31 16:02] LABS: BASO # 0.1 K/uL (0.0-0.2); BASO % 1.9 % (0.0-2.0); EOS # 0.3 K/uL (0.0-0.7); EOS % 5.1 % (0.0-4.0); LYMPH # 1.4 K/uL (1.0-4.3); LYMPH % 26.2 % (20.0-40.0); MEAN CELL VOLUME 79.1 fL (80.0-94.0); MEAN CORPUSCULAR HEMOGLOBIN 25.3 pg (27.0-31.0); MEAN CORPUSCULAR HGB CONC 31.9 g/dL (33.0-37.0); MEAN PLATELET VOLUME 9.2 fL (7.2-11.7); MONO # 0.4 K/uL (0.0-0.8); MONO % 7.5 % (0.0-10.0); NRBC % 0.1 % (0.0-2.0); RED CELL DISTRIBUTION WIDTH 19.2 % (11.5-14.5); WHITE BLOOD COUNT 5.4 K/uL (4.8-10.8)
--- NOTE | 2017-03-31 19:05 | CP.PCM.PN ---
Subjective - Date & Time of Evaluation Date of Evaluation: 03/31/17 Time of Evaluation: 19:05 - Subjective Subjective: Patient seen and examined No events overnight Awake and alert Physical exam Vital signs noted Generalno distress Necksupple CVSS1-S2 heard Lungsbilateral rhonchi Abdomensoft, ND Extremityno edema Neurononfocal Assessment/plan S/P acute respiratory failureS/P extubated COPD Pneumonia SAH SDH Seizures History of alcohol abuse Continue antibiotics Follow cultures Thiamine/folate Chest PT Bronchodilators Librium Scopolamine patch Continue supportive care DVT/GI prophylaxis Objective - Vital Signs/Intake and Output Vital Signs (last 24 hours): Temp Pulse Resp BP Pulse Ox 97.7 F 54 L 20 163/88 H 98 03/31/17 17:38 03/31/17 17:38 03/31/17 17:38 03/31/17 17:38 03/31/17 17:38 Intake and Output: 03/31/17 04/01/17 18:59 06:59 Intake Total 100 Balance 100 - Medications Medications: Current Medications Famotidine (Pepcid) 20 mg PO BID [facility] Last Admin: 03/31/17 17:37 Dose: 20 mg Levetiracetam 500 mg/ Sodium (Chloride) 105 mls @ 420 mls/hr IVPB Q12H [facility] Last Admin: 03/31/17 10:33 Dose: 420 mls/hr Nicotine (Nicoderm Cq) 1 patch TD DAILY [facility] Last Admin: 03/31/17 10:34 Dose: 1 patch Scopolamine (Transderm-Scop) 1 patch TD Q3D [facility] Last Admin: 03/29/17 16:45 Dose: 1 patch - Labs Labs: 03/31/17 15:57 03/31/17 11:42 PT 12.0 SECONDS (9.7-12.2) 03/16/17 06:02 INR 1.1 03/16/17 06:02 APTT 33 SECONDS (21-34) 03/16/17 06:02
[2017-04-01] MEDS: levETIRAcetam 500 MG in Sodium Chloride 0.9% 100 ML IVPB SCH ×2 (09:53→21:51)
--- NOTE | 2017-04-01 11:06 | CP.PCM.PN ---
Subjective - Date & Time of Evaluation Date of Evaluation: 04/01/17 Time of Evaluation: 11:05 - Subjective Subjective: Patient seen and examined No events overnight Awake and alert Physical exam Vital signs noted Generalno distress Necksupple CVSS1-S2 heard Lungsbilateral rhonchi Abdomensoft, ND Extremityno edema Neurononfocal Assessment/plan S/P acute respiratory failureS/P extubated COPD Pneumonia SAH SDH Seizures History of alcohol abuse Continue antibiotics Follow cultures Thiamine/folate Chest PT Bronchodilators Librium Scopolamine patch Continue supportive care DVT/GI prophylaxis Objective - Vital Signs/Intake and Output Vital Signs (last 24 hours): Temp Pulse Resp BP Pulse Ox 98.1 F 67 18 108/61 95 04/01/17 08:00 04/01/17 08:00 04/01/17 08:00 04/01/17 08:00 04/01/17 08:00 Intake and Output: 04/01/17 04/01/17 06:59 18:59 Intake Total 200 Balance 200 - Medications Medications: Current Medications Acetaminophen (Tylenol 325mg Tab) 650 mg PO Q6 PRN PRN Reason: Headache Last Admin: 04/01/17 09:52 Dose: 650 mg Famotidine (Pepcid) 20 mg PO BID [facility] Last Admin: 04/01/17 09:53 Dose: 20 mg Levetiracetam 500 mg/ Sodium (Chloride) 105 mls @ 420 mls/hr IVPB Q12H [facility] Last Admin: 04/01/17 09:53 Dose: 420 mls/hr Nicotine (Nicoderm Cq) 1 patch TD DAILY [facility] Last Admin: 04/01/17 09:53 Dose: 1 patch Scopolamine (Transderm-Scop) 1 patch TD Q3D [facility] Last Admin: 03/29/17 16:45 Dose: 1 patch - Labs Labs: 03/31/17 15:57 03/31/17 11:42 PT 12.0 SECONDS (9.7-12.2) 03/16/17 06:02 INR 1.1 03/16/17 06:02 APTT 33 SECONDS (21-34) 03/16/17 06:02
--- NOTE | 2017-04-01 12:56 | CP.PCM.PN ---
Subjective - Date & Time of Evaluation Date of Evaluation: 04/01/17 Time of Evaluation: 10:20 - Subjective Subjective: clinically same Objective - Vital Signs/Intake and Output Vital Signs (last 24 hours): Temp Pulse Resp BP Pulse Ox 98.1 F 67 18 108/61 95 04/01/17 08:00 04/01/17 08:00 04/01/17 08:00 04/01/17 08:00 04/01/17 08:00 Intake and Output: 04/01/17 04/01/17 06:59 18:59 Intake Total 200 Balance 200 - Medications Medications: Current Medications Acetaminophen (Tylenol 325mg Tab) 650 mg PO Q6 PRN PRN Reason: Headache Last Admin: 04/01/17 09:52 Dose: 650 mg Famotidine (Pepcid) 20 mg PO BID [facility] Last Admin: 04/01/17 09:53 Dose: 20 mg Levetiracetam 500 mg/ Sodium (Chloride) 105 mls @ 420 mls/hr IVPB Q12H [facility] Last Admin: 04/01/17 09:53 Dose: 420 mls/hr Nicotine (Nicoderm Cq) 1 patch TD DAILY [facility] Last Admin: 04/01/17 09:53 Dose: 1 patch Scopolamine (Transderm-Scop) 1 patch TD Q3D [facility] Last Admin: 03/29/17 16:45 Dose: 1 patch - Labs Labs: 03/31/17 15:57 03/31/17 11:42 PT 12.0 SECONDS (9.7-12.2) 03/16/17 06:02 INR 1.1 03/16/17 06:02 APTT 33 SECONDS (21-34) 03/16/17 06:02 - Constitutional Appears: Well - Head Exam Head Exam: ATRAUMATIC, NORMAL INSPECTION, NORMOCEPHALIC - Eye Exam Eye Exam: EOMI, Normal appearance, PERRL Pupil Exam: NORMAL ACCOMODATION, PERRL - ENT Exam ENT Exam: Mucous Membranes Moist, Normal Exam - Neck Exam Neck Exam: Full ROM, Normal Inspection. absent: Lymphadenopathy - Respiratory Exam Respiratory Exam: Decreased Breath Sounds - Cardiovascular Exam Cardiovascular Exam: REGULAR RHYTHM, +S1, +S2 - GI/Abdominal Exam GI & Abdominal Exam: Soft, Diminished Bowel Sounds - Rectal Exam Rectal Exam: Deferred Assessment and Plan - Assessment and Plan (Free Text) Plan: Follow-up neurologist Follow-up IV Continue Ativan Continue antibiotic Continue Keppra Continue thiamine Continue folic acid Continue Pepcid
[2017-04-02] MEDS: levETIRAcetam 500 MG in Sodium Chloride 0.9% 100 ML IVPB SCH ×2 (10:15→21:56)
--- NOTE | 2017-04-02 12:16 | CT ---
PROCEDURE: CT HEAD WITHOUT CONTRAST. HISTORY: persistent headache with dizziness COMPARISON: 03/30/2017. TECHNIQUE: Axial computed tomography images were obtained through the head/brain without intravenous contrast. Radiation dose: Total exam DLP = mGy-cm. This CT exam was performed using one or more of the following dose reduction techniques: Automated exposure control, adjustment of the mA and/or kV according to patient size, and/or use of iterative reconstruction technique. FINDINGS: HEMORRHAGE: Stable residual hemorrhagic components left temporal lobe. BRAIN: Persistent essentially unchanged extra-axial fluid collection on the left. VENTRICLES: No significant interval change compared to the prior examination(s). CALVARIUM: No significant interval change compared to the prior examination(s). PARANASAL SINUSES: Unremarkable as visualized. No significant inflammatory changes. MASTOID AIR CELLS: Unremarkable as visualized. No inflammatory changes. OTHER FINDINGS: None. IMPRESSION: No interval change left temporal parenchymal hemorrhage. No interval change in size, composition of left extra-axial fluid collection.
--- NOTE | 2017-04-02 18:12 | CP.PCM.PN ---
Subjective - Date & Time of Evaluation Date of Evaluation: 04/02/17 Time of Evaluation: 09:20 - Subjective Subjective: clinically same Objective - Vital Signs/Intake and Output Vital Signs (last 24 hours): Temp Pulse Resp BP Pulse Ox 98.0 F 67 20 130/79 96 04/02/17 15:10 04/02/17 15:10 04/02/17 15:10 04/02/17 15:10 04/02/17 15:10 Intake and Output: 04/02/17 04/02/17 06:59 18:59 Intake Total 540 Output Total 850 Balance -310 - Medications Medications: Current Medications Acetaminophen (Tylenol 325mg Tab) 650 mg PO Q6 PRN PRN Reason: Headache Last Admin: 04/02/17 13:12 Dose: 650 mg Famotidine (Pepcid) 20 mg PO BID [facility] Last Admin: 04/02/17 17:32 Dose: 20 mg Levetiracetam 500 mg/ Sodium (Chloride) 105 mls @ 420 mls/hr IVPB Q12H [facility] Last Admin: 04/02/17 10:15 Dose: 420 mls/hr Nicotine (Nicoderm Cq) 1 patch TD DAILY [facility] Last Admin: 04/02/17 10:15 Dose: 1 patch - Labs Labs: 03/31/17 15:57 03/31/17 11:42 PT 12.0 SECONDS (9.7-12.2) 03/16/17 06:02 INR 1.1 03/16/17 06:02 APTT 33 SECONDS (21-34) 03/16/17 06:02 - Constitutional Appears: Well - Head Exam Head Exam: ATRAUMATIC, NORMAL INSPECTION, NORMOCEPHALIC - Eye Exam Eye Exam: EOMI, Normal appearance, PERRL Pupil Exam: NORMAL ACCOMODATION, PERRL - ENT Exam ENT Exam: Mucous Membranes Moist, Normal Exam - Neck Exam Neck Exam: Full ROM, Normal Inspection. absent: Lymphadenopathy - Respiratory Exam Respiratory Exam: Decreased Breath Sounds - Cardiovascular Exam Cardiovascular Exam: REGULAR RHYTHM, +S1, +S2 - GI/Abdominal Exam GI & Abdominal Exam: Soft, Diminished Bowel Sounds - Rectal Exam Rectal Exam: Deferred Assessment and Plan - Assessment and Plan (Free Text) Plan: Follow-up neurologist Follow-up IV Continue Ativan Continue antibiotic Continue Keppra Continue thiamine Continue folic acid Continue Pepcid
--- NOTE | 2017-04-02 18:53 | CP.PCM.PN ---
Subjective - Date & Time of Evaluation Date of Evaluation: 04/02/17 Time of Evaluation: 18:50 - Subjective Subjective: Patient seen and examined No events overnight Awake and alert Physical exam Vital signs noted Generalno distress Necksupple CVSS1-S2 heard Lungsbilateral rhonchi Abdomensoft, ND Extremityno edema Neurononfocal Assessment/plan S/P acute respiratory failureS/P extubated COPD Pneumonia SAH SDH Seizures History of alcohol abuse Continue antibiotics Follow cultures Thiamine/folate Chest PT Bronchodilators Librium Scopolamine patch Continue supportive care DVT/GI prophylaxis Objective - Vital Signs/Intake and Output Vital Signs (last 24 hours): Temp Pulse Resp BP Pulse Ox 98.0 F 67 20 130/79 96 04/02/17 15:10 04/02/17 15:10 04/02/17 15:10 04/02/17 15:10 04/02/17 15:10 Intake and Output: 04/02/17 04/02/17 06:59 18:59 Intake Total 540 Output Total 850 Balance -310 - Medications Medications: Current Medications Acetaminophen (Tylenol 325mg Tab) 650 mg PO Q6 PRN PRN Reason: Headache Last Admin: 04/02/17 13:12 Dose: 650 mg Famotidine (Pepcid) 20 mg PO BID [facility] Last Admin: 04/02/17 17:32 Dose: 20 mg Levetiracetam 500 mg/ Sodium (Chloride) 105 mls @ 420 mls/hr IVPB Q12H [facility] Last Admin: 04/02/17 10:15 Dose: 420 mls/hr Nicotine (Nicoderm Cq) 1 patch TD DAILY [facility] Last Admin: 04/02/17 10:15 Dose: 1 patch - Labs Labs: 03/31/17 15:57 03/31/17 11:42 PT 12.0 SECONDS (9.7-12.2) 03/16/17 06:02 INR 1.1 03/16/17 06:02 APTT 33 SECONDS (21-34) 03/16/17 06:02
[2017-04-03] MEDS: levETIRAcetam 500 MG in Sodium Chloride 0.9% 100 ML IVPB SCH ×2 (10:15→22:28)
--- NOTE | 2017-04-03 15:35 | CP.PCM.PN ---
Subjective - Date & Time of Evaluation Date of Evaluation: 04/03/17 Time of Evaluation: 09:40 - Subjective Subjective: clinically same Objective - Vital Signs/Intake and Output Vital Signs (last 24 hours): Temp Pulse Resp BP Pulse Ox 97.9 F 85 20 122/72 95 04/03/17 07:00 04/03/17 07:00 04/03/17 07:00 04/03/17 07:00 04/03/17 07:00 Intake and Output: 04/03/17 04/03/17 06:59 18:59 Intake Total 200 Balance 200 - Medications Medications: Current Medications Acetaminophen (Tylenol 325mg Tab) 650 mg PO Q6 PRN PRN Reason: Headache Last Admin: 04/03/17 08:59 Dose: 650 mg Famotidine (Pepcid) 20 mg PO BID [facility] Last Admin: 04/03/17 10:16 Dose: 20 mg Levetiracetam 500 mg/ Sodium (Chloride) 105 mls @ 420 mls/hr IVPB Q12H [facility] Last Admin: 04/03/17 10:15 Dose: 420 mls/hr Nicotine (Nicoderm Cq) 1 patch TD DAILY [facility] Last Admin: 04/03/17 10:16 Dose: 1 patch - Labs Labs: 03/31/17 15:57 03/31/17 11:42 PT 12.0 SECONDS (9.7-12.2) 03/16/17 06:02 INR 1.1 03/16/17 06:02 APTT 33 SECONDS (21-34) 03/16/17 06:02 - Constitutional Appears: Well - Head Exam Head Exam: ATRAUMATIC, NORMAL INSPECTION, NORMOCEPHALIC - Eye Exam Eye Exam: EOMI, Normal appearance, PERRL Pupil Exam: NORMAL ACCOMODATION, PERRL - ENT Exam ENT Exam: Mucous Membranes Moist, Normal Exam - Neck Exam Neck Exam: Full ROM, Normal Inspection. absent: Lymphadenopathy - Respiratory Exam Respiratory Exam: Decreased Breath Sounds - Cardiovascular Exam Cardiovascular Exam: REGULAR RHYTHM, +S1, +S2 - GI/Abdominal Exam GI & Abdominal Exam: Soft, Diminished Bowel Sounds - Rectal Exam Rectal Exam: Deferred Assessment and Plan - Assessment and Plan (Free Text) Plan: Follow-up neurologist Follow-up IV Continue Ativan Continue antibiotic Continue Keppra Continue thiamine Continue folic acid Continue Pepcid
--- NOTE | 2017-04-03 18:31 | CP.PCM.PN ---
Subjective - Date & Time of Evaluation Date of Evaluation: 04/03/17 Time of Evaluation: 18:31 - Subjective Subjective: Patient seen and examined No events overnight Awake and alert Physical exam Vital signs noted General - no distress Neck - supple CVS - S1-S2 heard Lungs - bilateral rhonchi Abdomen - soft, ND Extremity - no edema Neuro - nonfocal Assessment/plan S/P acute respiratory failureS/P extubated COPD Pneumonia SAH SDH Seizures History of alcohol abuse Continue antibiotics Follow cultures Thiamine/folate Chest PT Bronchodilators Librium Scopolamine patch Continue supportive care DVT/GI prophylaxis Objective - Vital Signs/Intake and Output Vital Signs (last 24 hours): Temp Pulse Resp BP Pulse Ox 98.1 F 55 L 23 175/88 H 97 04/03/17 16:00 04/03/17 16:00 04/03/17 16:00 04/03/17 16:00 04/03/17 16:00 Intake and Output: 04/03/17 04/03/17 06:59 18:59 Intake Total 200 Balance 200 - Medications Medications: Current Medications Acetaminophen (Tylenol 325mg Tab) 650 mg PO Q6 PRN PRN Reason: Headache Last Admin: 04/03/17 17:37 Dose: 650 mg Famotidine (Pepcid) 20 mg PO BID [facility] Last Admin: 04/03/17 17:28 Dose: 20 mg Levetiracetam 500 mg/ Sodium (Chloride) 105 mls @ 420 mls/hr IVPB Q12H [facility] Last Admin: 04/03/17 10:15 Dose: 420 mls/hr Nicotine (Nicoderm Cq) 1 patch TD DAILY [facility] Last Admin: 04/03/17 10:16 Dose: 1 patch - Labs Labs: 03/31/17 15:57 03/31/17 11:42 PT 12.0 SECONDS (9.7-12.2) 03/16/17 06:02 INR 1.1 03/16/17 06:02 APTT 33 SECONDS (21-34) 03/16/17 06:02
[2017-04-04] MEDS: levETIRAcetam 500 MG in Sodium Chloride 0.9% 100 ML IVPB SCH (10:00)
--- NOTE | 2017-04-04 11:35 | CP.PCM.PN ---
Subjective - Date & Time of Evaluation Date of Evaluation: 04/04/17 Time of Evaluation: 09:00 - Subjective Subjective: clinically same Objective - Vital Signs/Intake and Output Vital Signs (last 24 hours): Temp Pulse Resp BP Pulse Ox 97.6 F 71 19 108/70 96 04/04/17 08:00 04/04/17 08:00 04/04/17 08:00 04/04/17 08:00 04/04/17 08:00 Intake and Output: 04/04/17 04/04/17 06:59 18:59 Intake Total 240 Balance 240 - Medications Medications: Current Medications Acetaminophen (Tylenol 325mg Tab) 650 mg PO Q6 PRN PRN Reason: Headache Last Admin: 04/03/17 17:37 Dose: 650 mg Famotidine (Pepcid) 20 mg PO BID [facility] Last Admin: 04/04/17 10:45 Dose: 20 mg Levetiracetam (Keppra) 500 mg PO BID [facility] Nicotine (Nicoderm Cq) 1 patch TD DAILY [facility] Last Admin: 04/04/17 10:45 Dose: 1 patch - Labs Labs: 03/31/17 15:57 03/31/17 11:42 PT 12.0 SECONDS (9.7-12.2) 03/16/17 06:02 INR 1.1 03/16/17 06:02 APTT 33 SECONDS (21-34) 03/16/17 06:02 - Constitutional Appears: Well - Head Exam Head Exam: ATRAUMATIC, NORMAL INSPECTION, NORMOCEPHALIC - Eye Exam Eye Exam: EOMI, Normal appearance, PERRL Pupil Exam: NORMAL ACCOMODATION, PERRL - ENT Exam ENT Exam: Mucous Membranes Moist, Normal Exam - Neck Exam Neck Exam: Full ROM, Normal Inspection. absent: Lymphadenopathy - Respiratory Exam Respiratory Exam: Decreased Breath Sounds - Cardiovascular Exam Cardiovascular Exam: REGULAR RHYTHM, +S1, +S2 - GI/Abdominal Exam GI & Abdominal Exam: Soft, Diminished Bowel Sounds - Rectal Exam Rectal Exam: Deferred Assessment and Plan - Assessment and Plan (Free Text) Plan: Follow-up neurologist Follow-up IV Continue Ativan Continue antibiotic Continue Keppra Continue thiamine Continue folic acid Continue Pepcid
--- NOTE | 2017-04-04 15:01 | CP.PCM.PN ---
Subjective - Date & Time of Evaluation Date of Evaluation: 04/04/17 Time of Evaluation: 15:01 - Subjective Subjective: Patient seen and examined No events overnight Awake and alert Physical exam Vital signs noted General - no distress Neck - supple CVS - S1-S2 heard Lungs - bilateral rhonchi Abdomen - soft, ND Extremity - no edema Neuro - nonfocal Assessment/plan S/P acute respiratory failureS/P extubated COPD Pneumonia SAH SDH Seizures History of alcohol abuse Continue antibiotics Follow cultures Thiamine/folate Chest PT Bronchodilators Librium Scopolamine patch Continue supportive care DVT/GI prophylaxis Objective - Vital Signs/Intake and Output Vital Signs (last 24 hours): Temp Pulse Resp BP Pulse Ox 97.6 F 71 19 108/70 96 04/04/17 08:00 04/04/17 08:00 04/04/17 08:00 04/04/17 08:00 04/04/17 08:00 Intake and Output: 04/04/17 04/04/17 06:59 18:59 Intake Total 240 300 Output Total 600 Balance 240 -300 - Medications Medications: Current Medications Acetaminophen (Tylenol 325mg Tab) 650 mg PO Q6 PRN PRN Reason: Headache Last Admin: 04/03/17 17:37 Dose: 650 mg Famotidine (Pepcid) 20 mg PO BID [facility] Last Admin: 04/04/17 10:45 Dose: 20 mg Levetiracetam (Keppra) 500 mg PO BID [facility] Nicotine (Nicoderm Cq) 1 patch TD DAILY [facility] Last Admin: 04/04/17 10:45 Dose: 1 patch - Labs Labs: 03/31/17 15:57 03/31/17 11:42 PT 12.0 SECONDS (9.7-12.2) 03/16/17 06:02 INR 1.1 03/16/17 06:02 APTT 33 SECONDS (21-34) 03/16/17 06:02
[2017-04-04] MEDS: levETIRAcetam 100 mg/ml (5ml) Oral Syringe PO SCH (17:07)
--- NOTE | 2017-04-05 10:15 | CP.PCM.PN ---
Subjective - Date & Time of Evaluation Date of Evaluation: 04/05/17 Time of Evaluation: 08:20 - Subjective Subjective: clinically same Objective - Vital Signs/Intake and Output Vital Signs (last 24 hours): Temp Pulse Resp BP Pulse Ox 98.3 F 61 18 120/81 99 04/05/17 08:00 04/05/17 08:00 04/05/17 08:00 04/05/17 08:00 04/05/17 08:00 - Medications Medications: Current Medications Acetaminophen (Tylenol 325mg Tab) 650 mg PO Q6 PRN PRN Reason: Headache Last Admin: 04/05/17 08:46 Dose: 650 mg Famotidine (Pepcid) 20 mg PO BID [facility] Last Admin: 04/04/17 17:07 Dose: 20 mg Levetiracetam (Keppra) 500 mg PO BID [facility] Last Admin: 04/04/17 17:07 Dose: 500 mg Nicotine (Nicoderm Cq) 1 patch TD DAILY [facility] Last Admin: 04/04/17 10:45 Dose: 1 patch - Labs Labs: 03/31/17 15:57 03/31/17 11:42 PT 12.0 SECONDS (9.7-12.2) 03/16/17 06:02 INR 1.1 03/16/17 06:02 APTT 33 SECONDS (21-34) 03/16/17 06:02 - Constitutional Appears: Well - Head Exam Head Exam: ATRAUMATIC, NORMAL INSPECTION, NORMOCEPHALIC - Eye Exam Eye Exam: EOMI, Normal appearance, PERRL Pupil Exam: NORMAL ACCOMODATION, PERRL - ENT Exam ENT Exam: Mucous Membranes Moist, Normal Exam - Neck Exam Neck Exam: Full ROM, Normal Inspection. absent: Lymphadenopathy - Respiratory Exam Respiratory Exam: Decreased Breath Sounds - Cardiovascular Exam Cardiovascular Exam: REGULAR RHYTHM, +S1, +S2 - GI/Abdominal Exam GI & Abdominal Exam: Soft, Diminished Bowel Sounds - Rectal Exam Rectal Exam: Deferred Assessment and Plan - Assessment and Plan (Free Text) Plan: Follow-up neurologist Follow-up IV Continue Ativan Continue antibiotic Continue Keppra Continue thiamine Continue folic acid Continue Pepcid
[2017-04-05] MEDS: levETIRAcetam 100 mg/ml (5ml) Oral Syringe PO SCH ×2 (10:21→17:35)
--- NOTE | 2017-04-05 15:36 | CP.PCM.PN ---
Subjective - Date & Time of Evaluation Date of Evaluation: 04/05/17 Time of Evaluation: 15:36 - Subjective Subjective: Patient seen and examined No events overnight Awake and alert Physical exam Vital signs noted General - no distress Neck - supple CVS - S1-S2 heard Lungs - bilateral rhonchi Abdomen - soft, ND Extremity - no edema Neuro - nonfocal Assessment/plan S/P acute respiratory failureS/P extubated COPD Pneumonia SAH SDH Seizures History of alcohol abuse Continue antibiotics Follow cultures Thiamine/folate Chest PT Bronchodilators Librium Scopolamine patch Continue supportive care DVT/GI prophylaxis Objective - Vital Signs/Intake and Output Vital Signs (last 24 hours): Temp Pulse Resp BP Pulse Ox 98.2 F 77 18 116/79 97 04/05/17 15:00 04/05/17 15:00 04/05/17 15:00 04/05/17 15:00 04/05/17 15:00 Intake and Output: 04/05/17 04/05/17 06:59 18:59 Intake Total 610 Balance 610 - Medications Medications: Current Medications Acetaminophen (Tylenol 325mg Tab) 650 mg PO Q6 PRN PRN Reason: Headache Last Admin: 04/05/17 15:11 Dose: 650 mg Famotidine (Pepcid) 20 mg PO BID [facility] Last Admin: 04/05/17 10:21 Dose: 20 mg Levetiracetam (Keppra) 500 mg PO BID [facility] Last Admin: 04/05/17 10:21 Dose: 500 mg Nicotine (Nicoderm Cq) 1 patch TD DAILY [facility] Last Admin: 04/05/17 10:21 Dose: 1 patch - Labs Labs: 03/31/17 15:57 03/31/17 11:42 PT 12.0 SECONDS (9.7-12.2) 03/16/17 06:02 INR 1.1 03/16/17 06:02 APTT 33 SECONDS (21-34) 03/16/17 06:02
[2017-04-06] MEDS: levETIRAcetam 100 mg/ml (5ml) Oral Syringe PO SCH ×2 (09:22→17:15)
--- NOTE | 2017-04-06 14:53 | CP.PCM.PN ---
Subjective - Date & Time of Evaluation Date of Evaluation: 04/06/17 Time of Evaluation: 14:53 - Subjective Subjective: Patient seen and examined No events overnight Comfortable Physical exam Vital signs noted General - no distress Neck - supple CVS - S1-S2 heard Lungs - bilateral rhonchi Abdomen - soft, ND Extremity - no edema Neuro - nonfocal Assessment/plan S/P acute respiratory failureS/P extubated COPD Pneumonia SAH SDH Seizures History of alcohol abuse Continue antibiotics Follow cultures Thiamine/folate Chest PT Bronchodilators Librium Scopolamine patch Continue supportive care DVT/GI prophylaxis Objective - Vital Signs/Intake and Output Vital Signs (last 24 hours): Temp Pulse Resp BP Pulse Ox 97.8 F 72 20 121/82 96 04/06/17 07:26 04/06/17 07:26 04/06/17 07:26 04/06/17 07:26 04/06/17 07:26 - Medications Medications: Current Medications Acetaminophen (Tylenol 325mg Tab) 650 mg PO Q6 PRN PRN Reason: Headache Last Admin: 04/06/17 08:04 Dose: 650 mg Famotidine (Pepcid) 20 mg PO BID [facility] Last Admin: 04/06/17 09:25 Dose: 20 mg Levetiracetam (Keppra) 500 mg PO BID [facility] Last Admin: 04/06/17 09:22 Dose: 500 mg Nicotine (Nicoderm Cq) 1 patch TD DAILY [facility] Last Admin: 04/06/17 09:22 Dose: 1 patch - Labs Labs: 03/31/17 15:57 03/31/17 11:42 PT 12.0 SECONDS (9.7-12.2) 03/16/17 06:02 INR 1.1 03/16/17 06:02 APTT 33 SECONDS (21-34) 03/16/17 06:02
--- NOTE | 2017-04-06 18:06 | CP.PCM.PN ---
Subjective - Date & Time of Evaluation Date of Evaluation: 04/06/17 Time of Evaluation: 07:00 - Subjective Subjective: clinically same Objective - Vital Signs/Intake and Output Vital Signs (last 24 hours): Temp Pulse Resp BP Pulse Ox 98.4 F 78 20 129/81 96 04/06/17 16:00 04/06/17 16:00 04/06/17 16:00 04/06/17 16:00 04/06/17 16:00 - Medications Medications: Current Medications Acetaminophen (Tylenol 325mg Tab) 650 mg PO Q6 PRN PRN Reason: Headache Last Admin: 04/06/17 17:27 Dose: 650 mg Famotidine (Pepcid) 20 mg PO BID [facility] Last Admin: 04/06/17 17:14 Dose: 20 mg Levetiracetam (Keppra) 500 mg PO BID [facility] Last Admin: 04/06/17 17:15 Dose: 500 mg Nicotine (Nicoderm Cq) 1 patch TD DAILY [facility] Last Admin: 04/06/17 09:22 Dose: 1 patch - Labs Labs: 03/31/17 15:57 03/31/17 11:42 PT 12.0 SECONDS (9.7-12.2) 03/16/17 06:02 INR 1.1 03/16/17 06:02 APTT 33 SECONDS (21-34) 03/16/17 06:02 - Constitutional Appears: Well - Head Exam Head Exam: ATRAUMATIC, NORMAL INSPECTION, NORMOCEPHALIC - Eye Exam Eye Exam: EOMI, Normal appearance, PERRL Pupil Exam: NORMAL ACCOMODATION, PERRL - ENT Exam ENT Exam: Mucous Membranes Moist, Normal Exam - Neck Exam Neck Exam: Full ROM, Normal Inspection. absent: Lymphadenopathy - Respiratory Exam Respiratory Exam: Decreased Breath Sounds - Cardiovascular Exam Cardiovascular Exam: REGULAR RHYTHM, +S1, +S2 - GI/Abdominal Exam GI & Abdominal Exam: Soft, Diminished Bowel Sounds - Rectal Exam Rectal Exam: Deferred Assessment and Plan (1) Abdominal pain Status: Acute (2) Abrasion Status: Acute (3) Alcohol abuse with intoxication Status: Acute (4) Alcohol intoxication Status: Acute (5) Alcohol withdrawal Status: Acute (6) Alcohol withdrawal seizure Status: Acute (7) Bacteremia Status: Acute (8) Bilateral lower extremity edema Status: Acute (9) Breakthrough seizure Status: Acute (10) Cellulitis Status: Acute (11) Cellulitis of lower extremity Status: Acute (12) Chronic calcific pancreatitis Status: Acute (13) Dehydration Status: Acute (14) Diarrhea Status: Acute (15) Dressing change/suture removal Status: Acute (16) Drug dependence Status: Acute (17) Duodenitis Status: Acute (18) Electrolyte imbalance Status: Acute (19) Elevated alkaline phosphatase level Status: Acute (20) Facial laceration Status: Acute (21) Fever Status: Acute (22) Head trauma Status: Acute (23) Homelessness Status: Acute (24) Hyperphosphatemia Status: Acute (25) Hypokalemia Status: Acute (26) Hypokalemia with normal acid-base balance Status: Acute (27) Hypomagnesemia Status: Acute (28) Hypothermia Status: Acute (29) Low vitamin D level Status: Acute (30) Pancreatic mass Status: Acute (31) Pancreatitis, acute Status: Acute (32) Periapical abscess Status: Acute (33) Pneumonia Status: Acute (34) Pneumonia Status: Acute (35) Prophylactic measure Status: Acute (36) Respiratory failure with hypoxia and hypercapnia Status: Acute (37) Seizure Status: Acute (38) Skull fracture Status: Acute (39) Subarachnoid bleed Status: Acute (40) Subdural hematoma Status: Acute (41) Subdural hemorrhage Status: Acute (42) Thrombocythemia Status: Acute (43) Thrombocytopenia Status: Acute (44) Tobacco abuse Status: Acute (45) Tremors of nervous system Status: Acute (46) Vitamin D deficiency Status: Acute (47) Acute on chronic pancreatitis Status: Chronic (48) Alcohol abuse Status: Chronic (49) Alcohol abuse Status: Chronic (50) Alcohol dependence Status: Chronic (51) Anemia Status: Chronic (52) Anxiety and depression Status: Chronic (53) Aspiration into lower respiratory tract Status: Chronic (54) COPD (chronic obstructive pulmonary disease) Status: Chronic (55) Cholecystitis Status: Chronic (56) Chronic pancreatitis Status: Chronic (57) Depression Status: Chronic (58) Hypertension Status: Chronic (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
[2017-04-07 07:40] LABS: CHLORIDE 96 mmol/L (98-107); POTASSIUM 4.3 mmol/L (3.6-5.2); SODIUM 135 mmol/L (132-148)
[2017-04-07 07:42] LABS: BASO # 0.1 K/uL (0.0-0.2); BASO % 1.3 % (0.0-2.0); EOS # 0.7 K/uL (0.0-0.7); EOS % 10.8 % (0.0-4.0); LYMPH # 1.7 K/uL (1.0-4.3); LYMPH % 26.4 % (20.0-40.0); MEAN CELL VOLUME 79.9 fL (80.0-94.0); MEAN CORPUSCULAR HEMOGLOBIN 25.5 pg (27.0-31.0); MEAN PLATELET VOLUME 8.6 fL (7.2-11.7); MONO # 0.5 K/uL (0.0-0.8); MONO % 7.8 % (0.0-10.0); RED CELL DISTRIBUTION WIDTH 19.1 % (11.5-14.5); WHITE BLOOD COUNT 6.4 K/uL (4.8-10.8)
[2017-04-07 07:44] LABS: BLOOD UREA NITROGEN 11 mg/dL (9-20); CALCIUM 9.1 mg/dl (8.6-10.4); CARBON DIOXIDE 28 mmol/L (22-30); GFR AFRICAN-AMERICAN > 60; GLUCOSE,RANDOM 108 mg/dL (75-110)
[2017-04-07] MEDS: levETIRAcetam 100 mg/ml (5ml) Oral Syringe PO SCH ×2 (10:04→18:29)
--- NOTE | 2017-04-07 13:24 | CP.PCM.PN ---
Subjective - Date & Time of Evaluation Date of Evaluation: 04/07/17 Time of Evaluation: 07:00 - Subjective Subjective: clinically same Objective - Vital Signs/Intake and Output Vital Signs (last 24 hours): Temp Pulse Resp BP Pulse Ox 98.4 F 75 20 109/75 96 04/07/17 07:18 04/07/17 07:18 04/07/17 07:18 04/07/17 07:18 04/07/17 07:18 Intake and Output: 04/07/17 04/07/17 06:59 18:59 Intake Total 690 Balance 690 - Medications Medications: Current Medications Acetaminophen (Tylenol 325mg Tab) 650 mg PO Q6 PRN PRN Reason: Headache Last Admin: 04/07/17 03:00 Dose: 650 mg Famotidine (Pepcid) 20 mg PO BID [facility] Last Admin: 04/07/17 10:05 Dose: 20 mg Levetiracetam (Keppra) 500 mg PO BID [facility] Last Admin: 04/07/17 10:04 Dose: 500 mg Nicotine (Nicoderm Cq) 1 patch TD DAILY [facility] Last Admin: 04/07/17 10:05 Dose: 1 patch - Labs Labs: 04/07/17 07:26 04/07/17 07:26 PT 12.0 SECONDS (9.7-12.2) 03/16/17 06:02 INR 1.1 03/16/17 06:02 APTT 33 SECONDS (21-34) 03/16/17 06:02 - Constitutional Appears: Well - Head Exam Head Exam: ATRAUMATIC, NORMAL INSPECTION, NORMOCEPHALIC - Eye Exam Eye Exam: EOMI, Normal appearance, PERRL Pupil Exam: NORMAL ACCOMODATION, PERRL - ENT Exam ENT Exam: Mucous Membranes Moist, Normal Exam - Neck Exam Neck Exam: Full ROM, Normal Inspection. absent: Lymphadenopathy - Respiratory Exam Respiratory Exam: Decreased Breath Sounds - Cardiovascular Exam Cardiovascular Exam: REGULAR RHYTHM, +S1, +S2 - GI/Abdominal Exam GI & Abdominal Exam: Soft, Diminished Bowel Sounds - Rectal Exam Rectal Exam: Deferred Assessment and Plan - Assessment and Plan (Free Text) Plan: Follow-up neurologist Follow-up IV Continue Ativan Continue Keppra Continue thiamine Continue folic acid Continue Pepcid
[2017-04-08] MEDS: levETIRAcetam 100 mg/ml (5ml) Oral Syringe PO SCH ×2 (09:08→17:06)
--- NOTE | 2017-04-08 11:17 | CP.PCM.PN ---
Subjective - Date & Time of Evaluation Date of Evaluation: 04/08/17 Time of Evaluation: 08:50 - Subjective Subjective: Clinically same Objective - Vital Signs/Intake and Output Vital Signs (last 24 hours): Temp Pulse Resp BP Pulse Ox 98 F 71 18 122/76 98 04/07/17 23:06 04/07/17 23:06 04/07/17 23:06 04/07/17 23:06 04/07/17 23:06 Intake and Output: 04/08/17 04/08/17 06:59 18:59 Intake Total 1160 Balance 1160 - Medications Medications: Current Medications Acetaminophen (Tylenol 325mg Tab) 650 mg PO Q6 PRN PRN Reason: Headache Last Admin: 04/08/17 09:07 Dose: 650 mg Famotidine (Pepcid) 20 mg PO BID [facility] Last Admin: 04/08/17 09:08 Dose: 20 mg Levetiracetam (Keppra) 500 mg PO BID [facility] Last Admin: 04/08/17 09:08 Dose: 500 mg Nicotine (Nicoderm Cq) 1 patch TD DAILY [facility] Last Admin: 04/08/17 09:08 Dose: 1 patch - Labs Labs: 04/07/17 07:26 04/07/17 07:26 PT 12.0 SECONDS (9.7-12.2) 03/16/17 06:02 INR 1.1 03/16/17 06:02 APTT 33 SECONDS (21-34) 03/16/17 06:02 Assessment and Plan (1) Abdominal pain Status: Acute (2) Abrasion Status: Acute (3) Alcohol abuse with intoxication Status: Acute (4) Alcohol intoxication Status: Acute (5) Alcohol withdrawal Status: Acute (6) Alcohol withdrawal seizure Status: Acute (7) Bacteremia Status: Acute (8) Bilateral lower extremity edema Status: Acute (9) Breakthrough seizure Status: Acute (10) Cellulitis Status: Acute (11) Cellulitis of lower extremity Status: Acute (12) Chronic calcific pancreatitis Status: Acute (13) Dehydration Status: Acute (14) Diarrhea Status: Acute (15) Dressing change/suture removal Status: Acute (16) Drug dependence Status: Acute (17) Duodenitis Status: Acute (18) Electrolyte imbalance Status: Acute (19) Elevated alkaline phosphatase level Status: Acute (20) Facial laceration Status: Acute (21) Fever Status: Acute (22) Head trauma Status: Acute (23) Homelessness Status: Acute (24) Hyperphosphatemia Status: Acute (25) Hypokalemia Status: Acute (26) Hypokalemia with normal acid-base balance Status: Acute (27) Hypomagnesemia Status: Acute (28) Hypothermia Status: Acute (29) Low vitamin D level Status: Acute (30) Pancreatic mass Status: Acute (31) Pancreatitis, acute Status: Acute (32) Periapical abscess Status: Acute (33) Pneumonia Status: Acute (34) Pneumonia Status: Acute (35) Prophylactic measure Status: Acute (36) Respiratory failure with hypoxia and hypercapnia Status: Acute (37) Seizure Status: Acute (38) Skull fracture Status: Acute (39) Subarachnoid bleed Status: Acute (40) Subdural hematoma Status: Acute (41) Subdural hemorrhage Status: Acute (42) Thrombocythemia Status: Acute (43) Thrombocytopenia Status: Acute (44) Tobacco abuse Status: Acute (45) Tremors of nervous system Status: Acute (46) Vitamin D deficiency Status: Acute (47) Acute on chronic pancreatitis Status: Chronic (48) Alcohol abuse Status: Chronic (49) Alcohol abuse Status: Chronic (50) Alcohol dependence Status: Chronic (51) Anemia Status: Chronic (52) Anxiety and depression Status: Chronic (53) Aspiration into lower respiratory tract Status: Chronic (54) COPD (chronic obstructive pulmonary disease) Status: Chronic (55) Cholecystitis Status: Chronic (56) Chronic pancreatitis Status: Chronic (57) Depression Status: Chronic (58) Hypertension Status: Chronic (59) Peripheral motor neuropathy Status: Chronic (60) Empyema Status: Suspected (61) Seizure Status: Resolved - Assessment and Plan (Free Text) Plan: work up fo rmandibular frcture as out pt susana same thimine and mvi renewed pt isok and eats well without problem at fracture site coti sme discharge planing waiting julianna and insurance approval..
[2017-04-08] MEDS: Multiple Vitamins Tab PO SCH (12:13)
--- NOTE | 2017-04-08 12:35 | CP.PCM.PN ---
Subjective - Date & Time of Evaluation Date of Evaluation: 04/08/17 Time of Evaluation: 12:35 - Subjective Subjective: Patient seen and examined No events overnight Awake and alert Physical exam Vital signs noted General - no distress Neck - supple CVS - S1-S2 heard Lungs - bilateral rhonchi Abdomen - soft, ND Extremity - no edema Neuro - nonfocal Assessment/plan S/P acute respiratory failureS/P extubated COPD Pneumonia SAH SDH Seizures History of alcohol abuse Continue antibiotics Follow cultures Thiamine/folate Bronchodilators Librium Scopolamine patch Continue supportive care DVT/GI prophylaxis Objective - Vital Signs/Intake and Output Vital Signs (last 24 hours): Temp Pulse Resp BP Pulse Ox 98 F 82 20 124/70 98 04/08/17 11:42 04/08/17 11:42 04/08/17 11:42 04/08/17 11:42 04/07/17 23:06 Intake and Output: 04/08/17 04/08/17 06:59 18:59 Intake Total 1160 800 Balance 1160 800 - Medications Medications: Current Medications Acetaminophen (Tylenol 325mg Tab) 650 mg PO Q6 PRN PRN Reason: Headache Last Admin: 04/08/17 09:07 Dose: 650 mg Famotidine (Pepcid) 20 mg PO BID [facility] Last Admin: 04/08/17 09:08 Dose: 20 mg Levetiracetam (Keppra) 500 mg PO BID [facility] Last Admin: 04/08/17 09:08 Dose: 500 mg Multivitamins (Hexavitamin) 1 tab PO DAILY [facility] Last Admin: 04/08/17 12:13 Dose: 1 tab Nicotine (Nicoderm Cq) 1 patch TD DAILY [facility] Last Admin: 04/08/17 09:08 Dose: 1 patch Thiamine HCl (Vitamin B1 Tab) 100 mg PO DAILY [facility] Last Admin: 04/08/17 12:21 Dose: 100 mg - Labs Labs: 04/07/17 07:26 04/07/17 07:26 PT 12.0 SECONDS (9.7-12.2) 03/16/17 06:02 INR 1.1 03/16/17 06:02 APTT 33 SECONDS (21-34) 03/16/17 06:02
--- NOTE | 2017-04-09 08:47 | CP.PCM.PN ---
Subjective - Date & Time of Evaluation Date of Evaluation: 04/09/17 Time of Evaluation: 10:40 - Subjective Subjective: Dr. Garrett Reed note: Patient seen in room. He is very confused to to place or time. He has complaints of headaches and dizziness. He also says he is hungry and wants to eat. Objective - Vital Signs/Intake and Output Vital Signs (last 24 hours): Temp Pulse Resp BP Pulse Ox 97.6 F 61 18 111/78 98 04/08/17 23:11 04/08/17 23:11 04/08/17 23:11 04/08/17 23:11 04/08/17 23:11 - Medications Medications: Current Medications Acetaminophen (Tylenol 325mg Tab) 650 mg PO Q6 PRN PRN Reason: Headache Last Admin: 04/09/17 00:34 Dose: 650 mg Famotidine (Pepcid) 20 mg PO BID [facility] Last Admin: 04/08/17 17:06 Dose: 20 mg Levetiracetam (Keppra) 500 mg PO BID [facility] Last Admin: 04/08/17 17:06 Dose: 500 mg Multivitamins (Hexavitamin) 1 tab PO DAILY [facility] Last Admin: 04/08/17 12:13 Dose: 1 tab Nicotine (Nicoderm Cq) 1 patch TD DAILY [facility] Last Admin: 04/08/17 09:08 Dose: 1 patch Thiamine HCl (Vitamin B1 Tab) 100 mg PO DAILY [facility] Last Admin: 04/08/17 12:21 Dose: 100 mg - Labs Labs: 04/07/17 07:26 04/07/17 07:26 PT 12.0 SECONDS (9.7-12.2) 03/16/17 06:02 INR 1.1 03/16/17 06:02 APTT 33 SECONDS (21-34) 03/16/17 06:02 - Constitutional Appears: Non-toxic, No Acute Distress, Confused - Head Exam Head Exam: NORMAL INSPECTION - Eye Exam Eye Exam: Normal appearance Pupil Exam: NORMAL ACCOMODATION - ENT Exam ENT Exam: Normal Exam - Respiratory Exam Respiratory Exam: Clear to Ausculation Bilateral. absent: Rhonchi, Wheezes - Cardiovascular Exam Cardiovascular Exam: REGULAR RHYTHM - GI/Abdominal Exam GI & Abdominal Exam: Soft, Normal Bowel Sounds. absent: Tenderness - Extremities Exam Extremities Exam: Normal Inspection - Back Exam Back Exam: NORMAL INSPECTION - Psychiatric Exam Psychiatric exam: Anxious - Skin Skin Exam: Normal Color Assessment and Plan (1) Subdural hematoma Assessment & Plan: Patient is very confused, and is unable to ambulate without alot of assistance from others and with a walker. Status: Acute (2) Alcohol abuse Assessment & Plan: continue Folic acid, multivitamin, and thiamine. Status: Chronic (3) Prophylactic measure Assessment & Plan: pepcid 20mg Status: Acute
[2017-04-09] MEDS: Multiple Vitamins Tab PO SCH (09:35)
[2017-04-09] MEDS: levETIRAcetam 100 mg/ml (5ml) Oral Syringe PO SCH ×2 (09:39→17:08)
--- NOTE | 2017-04-09 15:46 | CP.PCM.PN ---
Subjective - Date & Time of Evaluation Date of Evaluation: 04/09/17 Time of Evaluation: 07:00 - Subjective Subjective: clinically same Objective - Vital Signs/Intake and Output Vital Signs (last 24 hours): Temp Pulse Resp BP Pulse Ox 97.5 F L 78 20 125/80 98 04/09/17 09:00 04/09/17 12:01 04/09/17 09:00 04/09/17 09:00 04/09/17 12:01 - Medications Medications: Current Medications Acetaminophen (Tylenol 325mg Tab) 650 mg PO Q6 PRN PRN Reason: Headache Last Admin: 04/09/17 09:33 Dose: 650 mg Famotidine (Pepcid) 20 mg PO BID [facility] Last Admin: 04/09/17 09:35 Dose: 20 mg Levetiracetam (Keppra) 500 mg PO BID [facility] Last Admin: 04/09/17 09:39 Dose: 500 mg Multivitamins (Hexavitamin) 1 tab PO DAILY [facility] Last Admin: 04/09/17 09:35 Dose: 1 tab Nicotine (Nicoderm Cq) 1 patch TD DAILY [facility] Last Admin: 04/09/17 09:39 Dose: 1 patch Thiamine HCl (Vitamin B1 Tab) 100 mg PO DAILY [facility] Last Admin: 04/09/17 09:35 Dose: 100 mg - Labs Labs: 04/07/17 07:26 04/07/17 07:26 PT 12.0 SECONDS (9.7-12.2) 03/16/17 06:02 INR 1.1 03/16/17 06:02 APTT 33 SECONDS (21-34) 03/16/17 06:02 - Constitutional Appears: Well - Head Exam Head Exam: ATRAUMATIC, NORMAL INSPECTION, NORMOCEPHALIC - Eye Exam Eye Exam: EOMI, Normal appearance, PERRL Pupil Exam: NORMAL ACCOMODATION, PERRL - ENT Exam ENT Exam: Mucous Membranes Moist, Normal Exam - Neck Exam Neck Exam: Full ROM, Normal Inspection. absent: Lymphadenopathy - Respiratory Exam Respiratory Exam: Decreased Breath Sounds - Cardiovascular Exam Cardiovascular Exam: REGULAR RHYTHM, +S1, +S2 - GI/Abdominal Exam GI & Abdominal Exam: Soft, Diminished Bowel Sounds - Rectal Exam Rectal Exam: Deferred Assessment and Plan - Assessment and Plan (Free Text) Plan: Follow-up neurologist Follow-up IV Continue Ativan Continue Keppra Continue thiamine Continue folic acid Continue Pepcid
[2017-04-10] MEDS: levETIRAcetam 100 mg/ml (5ml) Oral Syringe PO SCH ×2 (09:23→17:22)
[2017-04-10] MEDS: Multiple Vitamins Tab PO SCH (09:23)
--- NOTE | 2017-04-10 10:00 | CP.PCM.PN ---
Subjective - Date & Time of Evaluation Date of Evaluation: 04/10/17 Time of Evaluation: 10:00 - Subjective Subjective: Dr. Reed note Patient seen in room, he is still complaining of headache and dizziness. He denies nausea, vomiting, diarrhea, shortness of breath or chest pain. Objective - Vital Signs/Intake and Output Vital Signs (last 24 hours): Temp Pulse Resp BP Pulse Ox 98.1 F 95 H 20 116/77 93 L 04/10/17 08:00 04/10/17 08:00 04/10/17 08:00 04/10/17 08:00 04/10/17 08:00 Intake and Output: 04/10/17 04/10/17 06:59 18:59 Intake Total 640 Balance 640 - Medications Medications: Current Medications Acetaminophen (Tylenol 325mg Tab) 650 mg PO Q6 PRN PRN Reason: Headache Last Admin: 04/10/17 09:22 Dose: 650 mg Famotidine (Pepcid) 20 mg PO BID [facility] Last Admin: 04/10/17 09:23 Dose: 20 mg Levetiracetam (Keppra) 500 mg PO BID [facility] Last Admin: 04/10/17 09:23 Dose: 500 mg Multivitamins (Hexavitamin) 1 tab PO DAILY [facility] Last Admin: 04/10/17 09:23 Dose: 1 tab Nicotine (Nicoderm Cq) 1 patch TD DAILY [facility] Last Admin: 04/10/17 09:23 Dose: 1 patch Thiamine HCl (Vitamin B1 Tab) 100 mg PO DAILY [facility] Last Admin: 04/09/17 09:35 Dose: 100 mg - Labs Labs: 04/07/17 07:26 04/07/17 07:26 PT 12.0 SECONDS (9.7-12.2) 03/16/17 06:02 INR 1.1 03/16/17 06:02 APTT 33 SECONDS (21-34) 03/16/17 06:02 - Constitutional Appears: Non-toxic, No Acute Distress - Head Exam Head Exam: NORMAL INSPECTION - Eye Exam Eye Exam: Normal appearance Pupil Exam: NORMAL ACCOMODATION - Respiratory Exam Respiratory Exam: Clear to Ausculation Bilateral. absent: Rales, Rhonchi, Wheezes - Cardiovascular Exam Cardiovascular Exam: REGULAR RHYTHM, RRR, +S1, +S2. absent: Gallop, Rubs - GI/Abdominal Exam GI & Abdominal Exam: Soft, Normal Bowel Sounds. absent: Tenderness - Extremities Exam Extremities Exam: Normal Inspection. absent: Pedal Edema - Neurological Exam Neurological Exam: absent: Oriented x3 - Skin Skin Exam: Normal Color Assessment and Plan - Assessment and Plan (Free Text) Assessment: Assessment and Plan (1) Subdural hematoma Assessment & Plan: 04/10 Patient is a unsafe discharge because he is unable to ambulate without any assitance from somone. He is very unsteady even with a walker and requires assistance for balance. Patient is very confused, and is unable to ambulate without alot of assistance from others and with a walker. Status: Acute (2) Alcohol abuse Assessment & Plan: continue Folic acid, multivitamin, and thiamine. Status: Chronic (3) Prophylactic measure Assessment & Plan: 04/10: continue pepcid, hold VTE due bleed. pepcid 20mg Status: Acute
--- NOTE | 2017-04-10 15:49 | CP.PCM.PN ---
Subjective - Date & Time of Evaluation Date of Evaluation: 04/10/17 Time of Evaluation: 07:00 - Subjective Subjective: clinically same Objective - Vital Signs/Intake and Output Vital Signs (last 24 hours): Temp Pulse Resp BP Pulse Ox 98.1 F 95 H 20 116/77 93 L 04/10/17 08:00 04/10/17 08:00 04/10/17 08:00 04/10/17 08:00 04/10/17 08:00 Intake and Output: 04/10/17 04/10/17 06:59 18:59 Intake Total 640 800 Balance 640 800 - Medications Medications: Current Medications Acetaminophen (Tylenol 325mg Tab) 650 mg PO Q6 PRN PRN Reason: Headache Last Admin: 04/10/17 09:22 Dose: 650 mg Famotidine (Pepcid) 20 mg PO BID [facility] Last Admin: 04/10/17 09:23 Dose: 20 mg Levetiracetam (Keppra) 500 mg PO BID [facility] Last Admin: 04/10/17 09:23 Dose: 500 mg Multivitamins (Hexavitamin) 1 tab PO DAILY [facility] Last Admin: 04/10/17 09:23 Dose: 1 tab Nicotine (Nicoderm Cq) 1 patch TD DAILY [facility] Last Admin: 04/10/17 09:23 Dose: 1 patch Thiamine HCl (Vitamin B1 Tab) 100 mg PO DAILY [facility] Last Admin: 04/10/17 10:44 Dose: 100 mg - Labs Labs: 04/07/17 07:26 04/07/17 07:26 PT 12.0 SECONDS (9.7-12.2) 03/16/17 06:02 INR 1.1 03/16/17 06:02 APTT 33 SECONDS (21-34) 03/16/17 06:02 - Constitutional Appears: Well - Head Exam Head Exam: ATRAUMATIC, NORMAL INSPECTION, NORMOCEPHALIC - Eye Exam Eye Exam: EOMI, Normal appearance, PERRL Pupil Exam: NORMAL ACCOMODATION, PERRL - ENT Exam ENT Exam: Mucous Membranes Moist, Normal Exam - Neck Exam Neck Exam: Full ROM, Normal Inspection. absent: Lymphadenopathy - Respiratory Exam Respiratory Exam: Decreased Breath Sounds - Cardiovascular Exam Cardiovascular Exam: REGULAR RHYTHM, +S1, +S2 - GI/Abdominal Exam GI & Abdominal Exam: Soft, Diminished Bowel Sounds - Rectal Exam Rectal Exam: Deferred Assessment and Plan - Assessment and Plan (Free Text) Plan: Follow-up neurologist Follow-up IV Continue Ativan Continue Keppra Continue thiamine Continue folic acid Continue Pepcid
[2017-04-11] MEDS: levETIRAcetam 100 mg/ml (5ml) Oral Syringe PO SCH ×3 (08:34→17:32)
[2017-04-11] MEDS: Multiple Vitamins Tab PO SCH ×2 (08:34→09:55)
--- NOTE | 2017-04-11 14:00 | CP.PCM.PN ---
Subjective - Date & Time of Evaluation Date of Evaluation: 04/11/17 Time of Evaluation: 09:00 - Subjective Subjective: Dr. Garrett Reed note: Patient seen in room. He complains of dizziness, headache, diffaculty walking, and nausea. He is also saying his has a very diffacult time walking with a cane. Objective - Vital Signs/Intake and Output Vital Signs (last 24 hours): Temp Pulse Resp BP Pulse Ox 98.2 F 69 20 143/81 97 04/11/17 07:25 04/11/17 07:25 04/11/17 07:25 04/11/17 07:25 04/11/17 07:25 Intake and Output: 04/11/17 04/11/17 06:59 18:59 Intake Total 780 Balance 780 - Medications Medications: Current Medications Acetaminophen (Tylenol 325mg Tab) 650 mg PO Q6 PRN PRN Reason: Headache Last Admin: 04/11/17 08:33 Dose: 650 mg Famotidine (Pepcid) 20 mg PO BID [facility] Last Admin: 04/11/17 09:56 Dose: Not Given Levetiracetam (Keppra) 500 mg PO BID [facility] Last Admin: 04/11/17 09:55 Dose: Not Given Multivitamins (Hexavitamin) 1 tab PO DAILY [facility] Last Admin: 04/11/17 09:55 Dose: Not Given Nicotine (Nicoderm Cq) 1 patch TD DAILY [facility] Last Admin: 04/11/17 09:56 Dose: Not Given Thiamine HCl (Vitamin B1 Tab) 100 mg PO DAILY [facility] Last Admin: 04/11/17 09:56 Dose: Not Given - Labs Labs: 04/07/17 07:26 04/07/17 07:26 PT 12.0 SECONDS (9.7-12.2) 03/16/17 06:02 INR 1.1 03/16/17 06:02 APTT 33 SECONDS (21-34) 03/16/17 06:02 - Constitutional Appears: Non-toxic, No Acute Distress - Head Exam Head Exam: NORMAL INSPECTION, NORMOCEPHALIC - Eye Exam Pupil Exam: NORMAL ACCOMODATION - Respiratory Exam Respiratory Exam: Clear to Ausculation Bilateral. absent: Rhonchi, Wheezes - Cardiovascular Exam Cardiovascular Exam: REGULAR RHYTHM - GI/Abdominal Exam GI & Abdominal Exam: Soft, Normal Bowel Sounds. absent: Tenderness - Extremities Exam Extremities Exam: Normal Inspection - Back Exam Back Exam: NORMAL INSPECTION Assessment and Plan - Assessment and Plan (Free Text) Assessment: 1) Subdural hematoma Assessment & Plan: 04/11: Patient discharge either to [facility] or to rehab. His discharge is pending placement 04/10 Patient is a unsafe discharge because he is unable to ambulate without any assitance from somone. He is very unsteady even with a walker and requires assistance for balance. Patient is very confused, and is unable to ambulate without alot of assistance from others and with a walker. Status: Acute (2) Alcohol abuse Assessment & Plan: continue Folic acid, multivitamin, and thiamine. Status: Chronic (3) Prophylactic measure Assessment & Plan: 04/11: re started Lovenox and continue pepcid 04/10: continue pepcid, hold VTE due bleed. Management per Dr. Reed
--- NOTE | 2017-04-11 14:16 | CP.PCM.PN ---
Subjective - Date & Time of Evaluation Date of Evaluation: 04/11/17 Time of Evaluation: 07:00 - Subjective Subjective: clinically same Objective - Vital Signs/Intake and Output Vital Signs (last 24 hours): Temp Pulse Resp BP Pulse Ox 98.2 F 69 20 143/81 97 04/11/17 07:25 04/11/17 07:25 04/11/17 07:25 04/11/17 07:25 04/11/17 07:25 Intake and Output: 04/11/17 04/11/17 06:59 18:59 Intake Total 780 Balance 780 - Medications Medications: Current Medications Acetaminophen (Tylenol 325mg Tab) 650 mg PO Q6 PRN PRN Reason: Headache Last Admin: 04/11/17 14:05 Dose: 650 mg Famotidine (Pepcid) 20 mg PO BID [facility] Last Admin: 04/11/17 09:56 Dose: Not Given Levetiracetam (Keppra) 500 mg PO BID [facility] Last Admin: 04/11/17 09:55 Dose: Not Given Multivitamins (Hexavitamin) 1 tab PO DAILY [facility] Last Admin: 04/11/17 09:55 Dose: Not Given Nicotine (Nicoderm Cq) 1 patch TD DAILY [facility] Last Admin: 04/11/17 09:56 Dose: Not Given Thiamine HCl (Vitamin B1 Tab) 100 mg PO DAILY [facility] Last Admin: 04/11/17 09:56 Dose: Not Given - Labs Labs: 04/07/17 07:26 04/07/17 07:26 PT 12.0 SECONDS (9.7-12.2) 03/16/17 06:02 INR 1.1 03/16/17 06:02 APTT 33 SECONDS (21-34) 03/16/17 06:02 - Constitutional Appears: Well - Head Exam Head Exam: ATRAUMATIC, NORMAL INSPECTION, NORMOCEPHALIC - Eye Exam Eye Exam: EOMI, Normal appearance, PERRL Pupil Exam: NORMAL ACCOMODATION, PERRL - ENT Exam ENT Exam: Mucous Membranes Moist, Normal Exam - Neck Exam Neck Exam: Full ROM, Normal Inspection. absent: Lymphadenopathy - Respiratory Exam Respiratory Exam: Decreased Breath Sounds - Cardiovascular Exam Cardiovascular Exam: REGULAR RHYTHM, +S1, +S2 - GI/Abdominal Exam GI & Abdominal Exam: Soft, Diminished Bowel Sounds - Rectal Exam Rectal Exam: Deferred Assessment and Plan - Assessment and Plan (Free Text) Plan: [facility] team and resident left o for his insuranace to sal me back left 3 messages todl long term care social [facility] to [facility] spoke to pt at [facility] about waiting to her from [facility] for his disposition enoourage po feeding
[2017-04-12 07:45] LABS: EOS # 0.7 K/uL (0.0-0.7); EOS % 13.8 % (0.0-4.0); HEMATOCRIT 34.7 % (35.0-51.0); LYMPH # 1.5 K/uL (1.0-4.3); LYMPH % 30.4 % (20.0-40.0); MEAN CELL VOLUME 79.1 fL (80.0-94.0); MEAN CORPUSCULAR HEMOGLOBIN 25.6 pg (27.0-31.0); MEAN CORPUSCULAR HGB CONC 32.3 g/dL (33.0-37.0); MEAN PLATELET VOLUME 8.6 fL (7.2-11.7); MONO # 0.4 K/uL (0.0-0.8); MONO % 7.5 % (0.0-10.0); RED CELL DISTRIBUTION WIDTH 18.8 % (11.5-14.5); WHITE BLOOD COUNT 4.8 K/uL (4.8-10.8)
[2017-04-12 08:07] LABS: CHLORIDE 97 mmol/L (98-107); SODIUM 133 mmol/L (132-148)
[2017-04-12 08:08] LABS: POTASSIUM 3.9 mmol/L (3.6-5.2)
[2017-04-12 08:09] LABS: GFR AFRICAN-AMERICAN > 60
[2017-04-12 08:10] LABS: ALB/GLOB RATIO 1.2 (1.0-2.1); ALKALINE PHOSPHATASE 99 U/L (38-126); ALT/SGPT 31 U/L (21-72); AST/SGOT 32 U/L (17-59); BILIRUBIN,TOTAL 0.5 mg/dL (0.2-1.3); BLOOD UREA NITROGEN 11 mg/dL (9-20); CALCIUM 9.1 mg/dl (8.6-10.4); CARBON DIOXIDE 25 mmol/L (22-30); GLUCOSE,RANDOM 108 mg/dL (75-110); TOTAL PROTEIN 7.4 g/dL (6.3-8.3)
[2017-04-12 08:11] LABS: MAGNESIUM 1.4 mg/dL (1.6-2.3)
[2017-04-12] MEDS: levETIRAcetam 100 mg/ml (5ml) Oral Syringe PO SCH ×2 (09:06→17:26)
[2017-04-12] MEDS: Multiple Vitamins Tab PO SCH (09:06)
[2017-04-12] MEDS: Magnesium Sulfate 1 gm in D5W 1 GM/100 ML BAG IVPB SCH (09:47)
--- NOTE | 2017-04-12 14:48 | CP.PCM.PN ---
<Saida Fuentes H - Last Filed: 04/12/17 14:45> Subjective - Date & Time of Evaluation Date of Evaluation: 04/12/17 Time of Evaluation: 09:40 - Subjective Subjective: Dr. Garrett Reed's service: Patient seen and examined in room. He complains of dizziness, headache, difficulty walking, and nausea. He seems very frustrated especially because of his hearing loss. Objective - Vital Signs/Intake and Output Vital Signs (last 24 hours): Temp Pulse Resp BP Pulse Ox 97.8 F 85 20 120/84 95 04/12/17 08:19 04/12/17 08:19 04/12/17 08:19 04/12/17 08:19 04/12/17 08:19 Intake and Output: 04/12/17 04/12/17 06:59 18:59 Intake Total 300 Balance 300 - Medications Medications: Current Medications Acetaminophen (Tylenol 325mg Tab) 650 mg PO Q6 PRN PRN Reason: Headache Last Admin: 04/12/17 09:05 Dose: 650 mg Famotidine (Pepcid) 20 mg PO BID [facility] Last Admin: 04/12/17 09:06 Dose: 20 mg Heparin Sodium (Porcine) (Heparin) 5,000 units SC Q12H [facility] Last Admin: 04/12/17 14:10 Dose: 5,000 units Levetiracetam (Keppra) 500 mg PO BID [facility] Last Admin: 04/12/17 09:06 Dose: 500 mg Multivitamins (Hexavitamin) 1 tab PO DAILY [facility] Last Admin: 04/12/17 09:06 Dose: 1 tab Nicotine (Nicoderm Cq) 1 patch TD DAILY [facility] Last Admin: 04/12/17 09:06 Dose: 1 patch Thiamine HCl (Vitamin B1 Tab) 100 mg PO DAILY [facility] Last Admin: 04/12/17 09:06 Dose: 100 mg - Labs Labs: 04/12/17 07:30 04/12/17 07:30 PT 12.0 SECONDS (9.7-12.2) 03/16/17 06:02 INR 1.1 03/16/17 06:02 APTT 33 SECONDS (21-34) 03/16/17 06:02 - Constitutional Appears: Non-toxic, No Acute Distress - Head Exam Head Exam: NORMAL INSPECTION - Eye Exam Eye Exam: EOMI - ENT Exam ENT Exam: Mucous Membranes Moist - Respiratory Exam Respiratory Exam: Clear to Ausculation Bilateral, NORMAL BREATHING PATTERN. absent: Rales, Rhonchi, Wheezes - Cardiovascular Exam Cardiovascular Exam: REGULAR RHYTHM, +S1, +S2. absent: Gallop, Rubs, Murmur - GI/Abdominal Exam GI & Abdominal Exam: Soft, Normal Bowel Sounds. absent: Tenderness - Extremities Exam Extremities Exam: Normal Capillary Refill. absent: Pedal Edema - Neurological Exam Neurological Exam: Alert, Oriented x3 - Psychiatric Exam Psychiatric exam: Normal Affect, Normal Mood - Skin Skin Exam: Normal Color, Warm Assessment and Plan - Assessment and Plan (Free Text) Assessment: 1) Subdural hematoma Assessment & Plan: 04/12: Pending insurance authorization 04/11: Patient discharge either to nursing home or to rehab. His discharge is pending placement 04/10 Patient is a unsafe discharge because he is unable to ambulate without any assitance from somone. He is very unsteady even with a walker and requires assistance for balance. Patient is very confused, and is unable to ambulate without alot of assistance from others and with a walker. Status: Acute (2) Alcohol abuse Assessment & Plan: continue Folic acid, multivitamin, and thiamine. Status: Chronic (3) Prophylactic measure Assessment & Plan: Heparin 5000U SC Q12 Pepcid 20mg PO BID Management per Dr. Reed <Apolonia Reed S - Last Filed: 04/12/17 18:06> Objective - Vital Signs/Intake and Output Vital Signs (last 24 hours): Temp Pulse Resp BP Pulse Ox 98.5 F 76 20 118/82 95 04/12/17 16:00 04/12/17 16:00 04/12/17 16:00 04/12/17 16:00 04/12/17 16:00 Intake and Output: 04/12/17 04/12/17 06:59 18:59 Intake Total 300 Balance 300 - Medications Medications: Current Medications Acetaminophen (Tylenol 325mg Tab) 650 mg PO Q6 PRN PRN Reason: Headache Last Admin: 04/12/17 17:30 Dose: 650 mg Famotidine (Pepcid) 20 mg PO BID [facility] Last Admin: 04/12/17 17:27 Dose: 20 mg Heparin Sodium (Porcine) (Heparin) 5,000 units SC Q12H [facility] Last Admin: 04/12/17 14:10 Dose: 5,000 units Levetiracetam (Keppra) 500 mg PO BID [facility] Last Admin: 04/12/17 17:26 Dose: 500 mg Multivitamins (Hexavitamin) 1 tab PO DAILY [facility] Last Admin: 04/12/17 09:06 Dose: 1 tab Nicotine (Nicoderm Cq) 1 patch TD DAILY [facility] Last Admin: 04/12/17 09:06 Dose: 1 patch Thiamine HCl (Vitamin B1 Tab) 100 mg PO DAILY [facility] Last Admin: 04/12/17 09:06 Dose: 100 mg - Labs Labs: 04/12/17 07:30 04/12/17 07:30 PT 12.0 SECONDS (9.7-12.2) 03/16/17 06:02 INR 1.1 03/16/17 06:02 APTT 33 SECONDS (21-34) 03/16/17 06:02 Attending/Attestation - Attestation I have personally seen and examined this patient.: Yes I have fully participated in the care of the patient.: Yes I have reviewed all pertinent clinical information, including history, physical exam and plan: Yes Notes (Text): 04/12/17 18:05 [facility] team and resident left o for his insuranace to sal me back left 3 messages todl social worker [facility]ency [facility] spoke to pt at [facility] about waiting to her from [facility] for his disposition
--- NOTE | 2017-04-12 18:35 | CP.PCM.PN ---
Subjective - Date & Time of Evaluation Date of Evaluation: 04/12/17 Time of Evaluation: 18:35 - Subjective Subjective: Patient seen and examined No events overnight Physical exam Vital signs noted General - no distress Neck - supple CVS - S1-S2 heard Lungs - bilateral rhonchi Abdomen - soft, ND Extremity - no edema Neuro - nonfocal Assessment/plan S/P acute respiratory failureS/P extubated COPD Pneumonia SAH SDH Seizures History of alcohol abuse Continue antibiotics Follow cultures Thiamine/folate Bronchodilators Librium Scopolamine patch Continue supportive care DVT/GI prophylaxis Objective - Vital Signs/Intake and Output Vital Signs (last 24 hours): Temp Pulse Resp BP Pulse Ox 98.5 F 76 20 118/82 95 04/12/17 16:00 04/12/17 16:00 04/12/17 16:00 04/12/17 16:00 04/12/17 16:00 Intake and Output: 04/12/17 04/12/17 06:59 18:59 Intake Total 300 Balance 300 - Medications Medications: Current Medications Acetaminophen (Tylenol 325mg Tab) 650 mg PO Q6 PRN PRN Reason: Headache Last Admin: 04/12/17 17:30 Dose: 650 mg Famotidine (Pepcid) 20 mg PO BID [facility] Last Admin: 04/12/17 17:27 Dose: 20 mg Heparin Sodium (Porcine) (Heparin) 5,000 units SC Q12H [facility] Last Admin: 04/12/17 14:10 Dose: 5,000 units Levetiracetam (Keppra) 500 mg PO BID [facility] Last Admin: 04/12/17 17:26 Dose: 500 mg Multivitamins (Hexavitamin) 1 tab PO DAILY [facility] Last Admin: 04/12/17 09:06 Dose: 1 tab Nicotine (Nicoderm Cq) 1 patch TD DAILY [facility] Last Admin: 04/12/17 09:06 Dose: 1 patch Thiamine HCl (Vitamin B1 Tab) 100 mg PO DAILY [facility] Last Admin: 04/12/17 09:06 Dose: 100 mg - Labs Labs: 04/12/17 07:30 04/12/17 07:30 PT 12.0 SECONDS (9.7-12.2) 03/16/17 06:02 INR 1.1 03/16/17 06:02 APTT 33 SECONDS (21-34) 03/16/17 06:02
[2017-04-13 07:20] LABS: BASO # 0.1 K/uL (0.0-0.2); BASO % 1.1 % (0.0-2.0); EOS # 0.7 K/uL (0.0-0.7); EOS % 13.8 % (0.0-4.0); LYMPH # 1.5 K/uL (1.0-4.3); LYMPH % 31.7 % (20.0-40.0); MEAN CELL VOLUME 79.3 fL (80.0-94.0); MEAN CORPUSCULAR HEMOGLOBIN 25.5 pg (27.0-31.0); MEAN CORPUSCULAR HGB CONC 32.2 g/dL (33.0-37.0); MEAN PLATELET VOLUME 8.3 fL (7.2-11.7); MONO # 0.3 K/uL (0.0-0.8); MONO % 7.1 % (0.0-10.0); NRBC % 0.1 % (0.0-2.0); RED CELL DISTRIBUTION WIDTH 18.7 % (11.5-14.5); WHITE BLOOD COUNT 4.8 K/uL (4.8-10.8)
[2017-04-13 07:33] LABS: CHLORIDE 96 mmol/L (98-107); SODIUM 132 mmol/L (132-148)
[2017-04-13 07:35] LABS: BILIRUBIN,TOTAL 0.5 mg/dL (0.2-1.3); GFR AFRICAN-AMERICAN > 60
[2017-04-13 07:36] LABS: ALB/GLOB RATIO 1.2 (1.0-2.1); ALKALINE PHOSPHATASE 97 U/L (38-126); ALT/SGPT 25 U/L (21-72); AST/SGOT 28 U/L (17-59); BLOOD UREA NITROGEN 9 mg/dL (9-20); CARBON DIOXIDE 21 mmol/L (22-30); GLUCOSE,RANDOM 101 mg/dL (75-110); TOTAL PROTEIN 7.4 g/dL (6.3-8.3)
[2017-04-13 07:37] LABS: CALCIUM 9.1 mg/dl (8.6-10.4)
[2017-04-13] MEDS: Multiple Vitamins Tab PO SCH ×2 (08:53→13:26)
[2017-04-13] MEDS: levETIRAcetam 100 mg/ml (5ml) Oral Syringe PO SCH ×3 (08:54→17:25)
--- NOTE | 2017-04-13 10:11 | CP.PCM.PN ---
Subjective - Date & Time of Evaluation Date of Evaluation: 04/13/17 Time of Evaluation: 09:10 - Subjective Subjective: Dr. Garrett Reed's service: Patient seen and examined in room. He complains of diffuse abdominal pain. Patient says he feels unsteady when he walks even with his cane. He is scared of falling down. Objective - Vital Signs/Intake and Output Vital Signs (last 24 hours): Temp Pulse Resp BP Pulse Ox 97.8 F 74 20 128/85 97 04/13/17 07:00 04/13/17 07:00 04/13/17 07:00 04/13/17 07:00 04/13/17 07:00 Intake and Output: 04/13/17 04/13/17 06:59 18:59 Intake Total 830 Balance 830 - Medications Medications: Current Medications Acetaminophen (Tylenol 325mg Tab) 650 mg PO Q6 PRN PRN Reason: Headache Last Admin: 04/13/17 08:53 Dose: 650 mg Famotidine (Pepcid) 20 mg PO BID [facility] Last Admin: 04/13/17 08:53 Dose: 20 mg Heparin Sodium (Porcine) (Heparin) 5,000 units SC Q12 [facility] Last Admin: 04/13/17 09:09 Dose: 5,000 units Levetiracetam (Keppra) 500 mg PO BID [facility] Last Admin: 04/13/17 08:54 Dose: 500 mg Multivitamins (Hexavitamin) 1 tab PO DAILY [facility] Last Admin: 04/13/17 08:53 Dose: 1 tab Nicotine (Nicoderm Cq) 1 patch TD DAILY [facility] Last Admin: 04/13/17 08:54 Dose: 1 patch Thiamine HCl (Vitamin B1 Tab) 100 mg PO DAILY [facility] Last Admin: 04/13/17 08:53 Dose: 100 mg - Labs Labs: 04/13/17 06:58 04/13/17 06:58 PT 12.0 SECONDS (9.7-12.2) 03/16/17 06:02 INR 1.1 03/16/17 06:02 APTT 33 SECONDS (21-34) 03/16/17 06:02 - Constitutional Appears: Non-toxic, No Acute Distress - Head Exam Head Exam: NORMAL INSPECTION - Eye Exam Eye Exam: EOMI - ENT Exam ENT Exam: Mucous Membranes Moist - Respiratory Exam Respiratory Exam: Clear to Ausculation Bilateral, NORMAL BREATHING PATTERN. absent: Rales, Rhonchi, Wheezes - Cardiovascular Exam Cardiovascular Exam: REGULAR RHYTHM, +S1, +S2. absent: Gallop, Rubs, Murmur - GI/Abdominal Exam GI & Abdominal Exam: Soft, Tenderness, Normal Bowel Sounds - Extremities Exam Extremities Exam: Normal Capillary Refill. absent: Pedal Edema - Neurological Exam Neurological Exam: Alert, Oriented x3 - Psychiatric Exam Psychiatric exam: Normal Affect, Normal Mood - Skin Skin Exam: Normal Color, Warm Assessment and Plan - Assessment and Plan (Free Text) Assessment: 1) Subdural hematoma Assessment & Plan: Patient is a unsafe discharge because he is unable to ambulate without any assistance from someone. He is very unsteady even with a walker and requires assistance for balance. Pending placement. Status: Acute (2) Alcohol abuse Assessment & Plan: continue Folic acid, multivitamin, and thiamine. Status: Chronic (3) Prophylactic measure Assessment & Plan: Heparin 5000U SC Q12 Pepcid 20mg PO BID Management per Dr. Reed
--- NOTE | 2017-04-13 10:40 | CP.PCM.PN ---
Subjective - Date & Time of Evaluation Date of Evaluation: 04/13/17 Time of Evaluation: 07:00 - Subjective Subjective: clinically same Objective - Vital Signs/Intake and Output Vital Signs (last 24 hours): Temp Pulse Resp BP Pulse Ox 97.8 F 74 20 128/85 97 04/13/17 07:00 04/13/17 07:00 04/13/17 07:00 04/13/17 07:00 04/13/17 07:00 Intake and Output: 04/13/17 04/13/17 06:59 18:59 Intake Total 830 Balance 830 - Medications Medications: Current Medications Acetaminophen (Tylenol 325mg Tab) 650 mg PO Q6 PRN PRN Reason: Headache Last Admin: 04/13/17 08:53 Dose: 650 mg Famotidine (Pepcid) 20 mg PO BID [facility] Last Admin: 04/13/17 08:53 Dose: 20 mg Heparin Sodium (Porcine) (Heparin) 5,000 units SC Q12 [facility] Last Admin: 04/13/17 09:09 Dose: 5,000 units Levetiracetam (Keppra) 500 mg PO BID [facility] Last Admin: 04/13/17 08:54 Dose: 500 mg Multivitamins (Hexavitamin) 1 tab PO DAILY [facility] Last Admin: 04/13/17 08:53 Dose: 1 tab Nicotine (Nicoderm Cq) 1 patch TD DAILY [facility] Last Admin: 04/13/17 08:54 Dose: 1 patch Thiamine HCl (Vitamin B1 Tab) 100 mg PO DAILY [facility] Last Admin: 04/13/17 08:53 Dose: 100 mg - Labs Labs: 04/13/17 06:58 04/13/17 06:58 PT 12.0 SECONDS (9.7-12.2) 03/16/17 06:02 INR 1.1 03/16/17 06:02 APTT 33 SECONDS (21-34) 03/16/17 06:02 - Constitutional Appears: Well - Head Exam Head Exam: ATRAUMATIC, NORMAL INSPECTION, NORMOCEPHALIC - Eye Exam Eye Exam: EOMI, Normal appearance, PERRL Pupil Exam: NORMAL ACCOMODATION, PERRL - ENT Exam ENT Exam: Mucous Membranes Moist, Normal Exam - Neck Exam Neck Exam: Full ROM, Normal Inspection. absent: Lymphadenopathy - Respiratory Exam Respiratory Exam: Decreased Breath Sounds - Cardiovascular Exam Cardiovascular Exam: REGULAR RHYTHM, +S1, +S2 - GI/Abdominal Exam GI & Abdominal Exam: Soft, Diminished Bowel Sounds - Rectal Exam Rectal Exam: Deferred Assessment and Plan - Assessment and Plan (Free Text) Plan: Follow-up neurologist Follow-up IV Continue Ativan Continue Keppra Continue thiamine Continue folic acid Continue Pepcid
--- NOTE | 2017-04-13 14:00 | CP.PCM.PN ---
Subjective - Date & Time of Evaluation Date of Evaluation: 04/13/17 Time of Evaluation: 14:00 - Subjective Subjective: Patient seen and examined No events overnight Physical exam Vital signs noted General - no distress Neck - supple CVS - S1-S2 heard Lungs - bilateral rhonchi Abdomen - soft, ND Extremity - no edema Neuro - nonfocal Assessment/plan S/P acute respiratory failureS/P extubated COPD Pneumonia - s/p Abx Rx SAH SDH Seizures History of alcohol abuse Thiamine/folate Bronchodilators Continue supportive care DVT/GI prophylaxis Objective - Vital Signs/Intake and Output Vital Signs (last 24 hours): Temp Pulse Resp BP Pulse Ox 97.8 F 74 20 128/85 97 04/13/17 07:00 04/13/17 07:00 04/13/17 07:00 04/13/17 07:00 04/13/17 07:00 Intake and Output: 04/13/17 04/13/17 06:59 18:59 Intake Total 830 Balance 830 - Medications Medications: Current Medications Acetaminophen (Tylenol 325mg Tab) 650 mg PO Q6 PRN PRN Reason: Headache Last Admin: 04/13/17 08:53 Dose: 650 mg Famotidine (Pepcid) 20 mg PO BID [facility] Last Admin: 04/13/17 13:27 Dose: Not Given Heparin Sodium (Porcine) (Heparin) 5,000 units SC Q12 [facility] Last Admin: 04/13/17 09:09 Dose: 5,000 units Levetiracetam (Keppra) 500 mg PO BID [facility] Last Admin: 04/13/17 13:26 Dose: Not Given Multivitamins (Hexavitamin) 1 tab PO DAILY [facility] Last Admin: 04/13/17 13:26 Dose: Not Given Nicotine (Nicoderm Cq) 1 patch TD DAILY [facility] Last Admin: 04/13/17 13:26 Dose: Not Given Thiamine HCl (Vitamin B1 Tab) 100 mg PO DAILY [facility] Last Admin: 04/13/17 13:27 Dose: Not Given - Labs Labs: 04/13/17 06:58 04/13/17 06:58 PT 12.0 SECONDS (9.7-12.2) 03/16/17 06:02 INR 1.1 03/16/17 06:02 APTT 33 SECONDS (21-34) 03/16/17 06:02
[2017-04-14] MEDS: Multiple Vitamins Tab PO SCH (09:26)
[2017-04-14] MEDS: levETIRAcetam 100 mg/ml (5ml) Oral Syringe PO SCH ×2 (09:26→17:36)
--- NOTE | 2017-04-14 11:15 | CP.PCM.PN ---
Subjective - Date & Time of Evaluation Date of Evaluation: 04/14/17 Time of Evaluation: 07:00 - Subjective Subjective: clinically same Objective - Vital Signs/Intake and Output Vital Signs (last 24 hours): Temp Pulse Resp BP Pulse Ox 97.6 F 84 20 121/86 95 04/14/17 08:00 04/14/17 08:00 04/14/17 08:00 04/14/17 08:00 04/14/17 08:00 Intake and Output: 04/14/17 04/14/17 06:59 18:59 Intake Total 22 Balance 22 - Medications Medications: Current Medications Acetaminophen (Tylenol 325mg Tab) 650 mg PO Q6 PRN PRN Reason: Headache Last Admin: 04/14/17 09:31 Dose: 650 mg Famotidine (Pepcid) 20 mg PO BID [facility] Last Admin: 04/14/17 09:26 Dose: 20 mg Heparin Sodium (Porcine) (Heparin) 5,000 units SC Q12 [facility] Last Admin: 04/14/17 09:26 Dose: 5,000 units Levetiracetam (Keppra) 500 mg PO BID [facility] Last Admin: 04/14/17 09:26 Dose: 500 mg Multivitamins (Hexavitamin) 1 tab PO DAILY [facility] Last Admin: 04/14/17 09:26 Dose: 1 tab Nicotine (Nicoderm Cq) 1 patch TD DAILY [facility] Last Admin: 04/14/17 09:26 Dose: 1 patch Thiamine HCl (Vitamin B1 Tab) 100 mg PO DAILY [facility] Last Admin: 04/14/17 09:26 Dose: 100 mg - Labs Labs: 04/13/17 06:58 04/13/17 06:58 PT 12.0 SECONDS (9.7-12.2) 03/16/17 06:02 INR 1.1 03/16/17 06:02 APTT 33 SECONDS (21-34) 03/16/17 06:02 - Constitutional Appears: Well - Head Exam Head Exam: ATRAUMATIC, NORMAL INSPECTION, NORMOCEPHALIC - Eye Exam Eye Exam: EOMI, Normal appearance, PERRL Pupil Exam: NORMAL ACCOMODATION, PERRL - ENT Exam ENT Exam: Mucous Membranes Moist, Normal Exam - Neck Exam Neck Exam: Full ROM, Normal Inspection. absent: Lymphadenopathy - Respiratory Exam Respiratory Exam: Decreased Breath Sounds - Cardiovascular Exam Cardiovascular Exam: REGULAR RHYTHM, +S1, +S2 - GI/Abdominal Exam GI & Abdominal Exam: Soft, Diminished Bowel Sounds - Rectal Exam Rectal Exam: Deferred Assessment and Plan - Assessment and Plan (Free Text) Plan: Follow-up neurologist Follow-up IV Continue Ativan Continue Keppra Continue thiamine Continue folic acid Continue Pepcid
--- NOTE | 2017-04-14 15:36 | CP.PCM.PN ---
Subjective - Date & Time of Evaluation Date of Evaluation: 04/14/17 Time of Evaluation: 15:36 - Subjective Subjective: Patient seen and examined No events overnight Physical exam Vital signs noted General - no distress Neck - supple CVS - S1-S2 heard Lungs - bilateral rhonchi Abdomen - soft, ND Extremity - no edema Neuro - nonfocal Assessment/plan S/P acute respiratory failureS/P extubated COPD Pneumonia - s/p Abx Rx SAH SDH Seizures History of alcohol abuse Thiamine/folate Bronchodilators Continue supportive care DVT/GI prophylaxis Objective - Vital Signs/Intake and Output Vital Signs (last 24 hours): Temp Pulse Resp BP Pulse Ox 97.6 F 84 20 121/86 95 04/14/17 08:00 04/14/17 08:00 04/14/17 08:00 04/14/17 08:00 04/14/17 08:00 Intake and Output: 04/14/17 04/14/17 06:59 18:59 Intake Total 22 500 Balance 22 500 - Medications Medications: Current Medications Acetaminophen (Tylenol 325mg Tab) 650 mg PO Q6 PRN PRN Reason: Headache Last Admin: 04/14/17 09:31 Dose: 650 mg Famotidine (Pepcid) 20 mg PO BID [facility] Last Admin: 04/14/17 09:26 Dose: 20 mg Heparin Sodium (Porcine) (Heparin) 5,000 units SC Q12 [facility] Last Admin: 04/14/17 09:26 Dose: 5,000 units Levetiracetam (Keppra) 500 mg PO BID [facility] Last Admin: 04/14/17 09:26 Dose: 500 mg Multivitamins (Hexavitamin) 1 tab PO DAILY [facility] Last Admin: 04/14/17 09:26 Dose: 1 tab Nicotine (Nicoderm Cq) 1 patch TD DAILY [facility] Last Admin: 04/14/17 09:26 Dose: 1 patch Thiamine HCl (Vitamin B1 Tab) 100 mg PO DAILY [facility] Last Admin: 04/14/17 09:26 Dose: 100 mg - Labs Labs: 04/13/17 06:58 04/13/17 06:58 PT 12.0 SECONDS (9.7-12.2) 03/16/17 06:02 INR 1.1 03/16/17 06:02 APTT 33 SECONDS (21-34) 03/16/17 06:02
[2017-04-15] MEDS: Multiple Vitamins Tab PO SCH (10:39)
[2017-04-15] MEDS: levETIRAcetam 100 mg/ml (5ml) Oral Syringe PO SCH ×2 (11:03→17:57)
--- NOTE | 2017-04-15 14:42 | CP.PCM.PN ---
Subjective - Date & Time of Evaluation Date of Evaluation: 04/15/17 Time of Evaluation: 10:22 - Subjective Subjective: clinically same Objective - Vital Signs/Intake and Output Vital Signs (last 24 hours): Temp Pulse Resp BP Pulse Ox 98.3 F 79 20 115/80 95 04/15/17 07:50 04/15/17 07:50 04/15/17 07:50 04/15/17 07:50 04/15/17 07:50 Intake and Output: 04/15/17 04/15/17 06:59 18:59 Intake Total 300 Balance 300 - Medications Medications: Current Medications Acetaminophen (Tylenol 325mg Tab) 650 mg PO Q6 PRN PRN Reason: Headache Last Admin: 04/15/17 08:03 Dose: 650 mg Famotidine (Pepcid) 20 mg PO BID [facility] Last Admin: 04/15/17 10:38 Dose: 20 mg Heparin Sodium (Porcine) (Heparin) 5,000 units SC Q12 [facility] Last Admin: 04/15/17 10:39 Dose: 5,000 units Levetiracetam (Keppra) 500 mg PO BID [facility] Last Admin: 04/15/17 11:03 Dose: 500 mg Multivitamins (Hexavitamin) 1 tab PO DAILY [facility] Last Admin: 04/15/17 10:39 Dose: 1 tab Nicotine (Nicoderm Cq) 1 patch TD DAILY [facility] Last Admin: 04/15/17 11:03 Dose: 1 patch Thiamine HCl (Vitamin B1 Tab) 100 mg PO DAILY [facility] Last Admin: 04/15/17 10:38 Dose: 100 mg - Labs Labs: 04/13/17 06:58 04/13/17 06:58 PT 12.0 SECONDS (9.7-12.2) 03/16/17 06:02 INR 1.1 03/16/17 06:02 APTT 33 SECONDS (21-34) 03/16/17 06:02 Assessment and Plan - Assessment and Plan (Free Text) Plan: f/u Dr. Imelda meza. porcine susana. keppra
--- NOTE | 2017-04-15 17:23 | CP.PCM.PN ---
Subjective - Date & Time of Evaluation Date of Evaluation: 04/15/17 Time of Evaluation: 17:20 - Subjective Subjective: Patient seen and examined No events overnight Physical exam Vital signs noted General - no distress Neck - supple CVS - S1-S2 heard Lungs - bilateral rhonchi Abdomen - soft, ND Extremity - no edema Neuro - nonfocal Assessment/plan S/P acute respiratory failureS/P extubated COPD Pneumonia - s/p Abx Rx [facility] Seizures History of alcohol abuse Thiamine/folate Bronchodilators Continue supportive care DVT/GI prophylaxis Objective - Vital Signs/Intake and Output Vital Signs (last 24 hours): Temp Pulse Resp BP Pulse Ox 98.3 F 79 20 115/80 95 04/15/17 07:50 04/15/17 07:50 04/15/17 07:50 04/15/17 07:50 04/15/17 07:50 Intake and Output: 04/15/17 04/15/17 06:59 18:59 Intake Total 300 Balance 300 - Medications Medications: Current Medications Acetaminophen (Tylenol 325mg Tab) 650 mg PO Q6 PRN PRN Reason: Headache Last Admin: 04/15/17 08:03 Dose: 650 mg Famotidine (Pepcid) 20 mg PO BID [facility] Last Admin: 04/15/17 10:38 Dose: 20 mg Heparin Sodium (Porcine) (Heparin) 5,000 units SC Q12 [facility] Last Admin: 04/15/17 10:39 Dose: 5,000 units Levetiracetam (Keppra) 500 mg PO BID [facility] Last Admin: 04/15/17 11:03 Dose: 500 mg Multivitamins (Hexavitamin) 1 tab PO DAILY [facility] Last Admin: 04/15/17 10:39 Dose: 1 tab Nicotine (Nicoderm Cq) 1 patch TD DAILY [facility] Last Admin: 04/15/17 11:03 Dose: 1 patch Thiamine HCl (Vitamin B1 Tab) 100 mg PO DAILY [facility] Last Admin: 04/15/17 10:38 Dose: 100 mg - Labs Labs: 04/13/17 06:58 04/13/17 06:58 PT 12.0 SECONDS (9.7-12.2) 03/16/17 06:02 INR 1.1 03/16/17 06:02 APTT 33 SECONDS (21-34) 03/16/17 06:02
[2017-04-16 06:16] LABS: BASO # 0.1 K/uL (0.0-0.2); BASO % 1.4 % (0.0-2.0); EOS # 0.7 K/uL (0.0-0.7); EOS % 17.3 % (0.0-4.0); HEMATOCRIT 37.9 % (35.0-51.0); LYMPH # 1.5 K/uL (1.0-4.3); LYMPH % 35.1 % (20.0-40.0); MEAN CELL VOLUME 79.3 fL (80.0-94.0); MEAN CORPUSCULAR HEMOGLOBIN 25.1 pg (27.0-31.0); MEAN CORPUSCULAR HGB CONC 31.7 g/dL (33.0-37.0); MEAN PLATELET VOLUME 8.2 fL (7.2-11.7); MONO # 0.3 K/uL (0.0-0.8); MONO % 8.1 % (0.0-10.0); RED CELL DISTRIBUTION WIDTH 18.8 % (11.5-14.5); WHITE BLOOD COUNT 4.3 K/uL (4.8-10.8)
[2017-04-16 06:34] LABS: CHLORIDE 98 mmol/L (98-107); SODIUM 134 mmol/L (132-148)
[2017-04-16 06:37] LABS: ALB/GLOB RATIO 1.2 (1.0-2.1); ALKALINE PHOSPHATASE 99 U/L (38-126); ALT/SGPT 34 U/L (21-72); AST/SGOT 39 U/L (17-59); BILIRUBIN,TOTAL 0.5 mg/dL (0.2-1.3); BLOOD UREA NITROGEN 14 mg/dL (9-20); CARBON DIOXIDE 23 mmol/L (22-30); GFR AFRICAN-AMERICAN > 60; GLUCOSE,RANDOM 132 mg/dL (75-110); TOTAL PROTEIN 7.7 g/dL (6.3-8.3)
[2017-04-16 06:38] LABS: CALCIUM 9.5 mg/dl (8.6-10.4)
[2017-04-16] MEDS: levETIRAcetam 100 mg/ml (5ml) Oral Syringe PO SCH ×2 (10:10→18:23)
[2017-04-16] MEDS: Multiple Vitamins Tab PO SCH (10:10)
--- NOTE | 2017-04-16 11:34 | CP.PCM.PN ---
Subjective - Date & Time of Evaluation Date of Evaluation: 04/16/17 Time of Evaluation: 13:00 - Subjective Subjective: Dr. Garrett Reed service: Patient seen in room he is complaining of constant headache and balance problems when trying to walk. He has great diffaculty walking and also remembering where he is at times. Objective - Vital Signs/Intake and Output Vital Signs (last 24 hours): Temp Pulse Resp BP Pulse Ox 97.6 F 76 20 128/85 98 04/16/17 07:00 04/16/17 07:00 04/16/17 07:00 04/16/17 07:00 04/16/17 07:00 Intake and Output: 04/16/17 04/16/17 06:59 18:59 Intake Total 360 Balance 360 - Medications Medications: Current Medications Famotidine (Pepcid) 20 mg PO BID [facility] Last Admin: 04/16/17 10:10 Dose: 20 mg Levetiracetam (Keppra) 500 mg PO BID [facility] Last Admin: 04/16/17 10:10 Dose: 500 mg Multivitamins (Hexavitamin) 1 tab PO DAILY [facility] Last Admin: 04/16/17 10:10 Dose: 1 tab Nicotine (Nicoderm Cq) 1 patch TD DAILY [facility] Last Admin: 04/16/17 10:10 Dose: 1 patch Thiamine HCl (Vitamin B1 Tab) 100 mg PO DAILY [facility] Last Admin: 04/16/17 10:10 Dose: 100 mg - Labs Labs: 04/16/17 06:03 04/16/17 06:03 PT 12.0 SECONDS (9.7-12.2) 03/16/17 06:02 INR 1.1 03/16/17 06:02 APTT 33 SECONDS (21-34) 03/16/17 06:02 - Constitutional Appears: Non-toxic, No Acute Distress - Eye Exam Eye Exam: Normal appearance - ENT Exam ENT Exam: Normal Exam - Respiratory Exam Respiratory Exam: Clear to Ausculation Bilateral. absent: Rales, Rhonchi, Wheezes - Cardiovascular Exam Cardiovascular Exam: REGULAR RHYTHM, RRR, +S1, +S2. absent: Gallop, Rubs - GI/Abdominal Exam GI & Abdominal Exam: Soft - Extremities Exam Extremities Exam: Normal Inspection - Neurological Exam Neurological Exam: Alert, Awake. absent: Oriented x3 - Psychiatric Exam Psychiatric exam: Normal Affect, Normal Mood Assessment and Plan - Assessment and Plan (Free Text) Assessment: ) Subdural hematoma Assessment & Plan: 04/16: pending placement, unsafe discharge due to patients confusion and inability to ambulate. Patient is a unsafe discharge because he is unable to ambulate without any assistance from someone. He is very unsteady even with a walker and requires assistance for balance. Pending placement. Status: Acute (2) Alcohol abuse Assessment & Plan: continue Folic acid, multivitamin, and thiamine. Status: Chronic (3) Prophylactic measure Assessment & Plan: Heparin 5000U SC Q12 Pepcid 20mg PO BID Management per Dr. Reed
--- NOTE | 2017-04-16 12:03 | CP.PCM.PN ---
Subjective - Date & Time of Evaluation Date of Evaluation: 04/16/17 Time of Evaluation: 12:02 - Subjective Subjective: Patient seen and examined No events overnight Physical exam Vital signs noted General - no distress Neck - supple CVS - S1-S2 heard Lungs - bilateral rhonchi Abdomen - soft, ND Extremity - no edema Neuro - nonfocal Assessment/plan S/P acute respiratory failureS/P extubated COPD Pneumonia - s/p Abx Rx [facility] Seizures History of alcohol abuse Thiamine/folate Bronchodilators Awaiting placement Continue supportive care DVT/GI prophylaxis Objective - Vital Signs/Intake and Output Vital Signs (last 24 hours): Temp Pulse Resp BP Pulse Ox 97.6 F 76 20 128/85 98 04/16/17 07:00 04/16/17 07:00 04/16/17 07:00 04/16/17 07:00 04/16/17 07:00 Intake and Output: 04/16/17 04/16/17 06:59 18:59 Intake Total 360 Balance 360 - Medications Medications: Current Medications Famotidine (Pepcid) 20 mg PO BID [facility] Last Admin: 04/16/17 10:10 Dose: 20 mg Levetiracetam (Keppra) 500 mg PO BID [facility] Last Admin: 04/16/17 10:10 Dose: 500 mg Multivitamins (Hexavitamin) 1 tab PO DAILY [facility] Last Admin: 04/16/17 10:10 Dose: 1 tab Nicotine (Nicoderm Cq) 1 patch TD DAILY [facility] Last Admin: 04/16/17 10:10 Dose: 1 patch Thiamine HCl (Vitamin B1 Tab) 100 mg PO DAILY [facility] Last Admin: 04/16/17 10:10 Dose: 100 mg - Labs Labs: 04/16/17 06:03 04/16/17 06:03 PT 12.0 SECONDS (9.7-12.2) 03/16/17 06:02 INR 1.1 03/16/17 06:02 APTT 33 SECONDS (21-34) 03/16/17 06:02
--- NOTE | 2017-04-16 16:17 | CP.PCM.PN ---
Subjective - Date & Time of Evaluation Date of Evaluation: 04/16/17 Time of Evaluation: 07:00 - Subjective Subjective: Clinically same Objective - Vital Signs/Intake and Output Vital Signs (last 24 hours): Temp Pulse Resp BP Pulse Ox 97.6 F 76 20 128/85 98 04/16/17 07:00 04/16/17 07:00 04/16/17 07:00 04/16/17 07:00 04/16/17 07:00 Intake and Output: 04/16/17 04/16/17 06:59 18:59 Intake Total 600 Balance 600 - Medications Medications: Current Medications Acetaminophen (Tylenol 325mg Tab) 650 mg PO Q6 PRN PRN Reason: Pain, severe (8-10) Last Admin: 04/16/17 14:00 Dose: 650 mg Famotidine (Pepcid) 20 mg PO BID [facility] Last Admin: 04/16/17 10:10 Dose: 20 mg Levetiracetam (Keppra) 500 mg PO BID [facility] Last Admin: 04/16/17 10:10 Dose: 500 mg Multivitamins (Hexavitamin) 1 tab PO DAILY [facility] Last Admin: 04/16/17 10:10 Dose: 1 tab Nicotine (Nicoderm Cq) 1 patch TD DAILY [facility] Last Admin: 04/16/17 10:10 Dose: 1 patch Thiamine HCl (Vitamin B1 Tab) 100 mg PO DAILY [facility] Last Admin: 04/16/17 10:10 Dose: 100 mg - Labs Labs: 04/16/17 06:03 04/16/17 06:03 PT 12.0 SECONDS (9.7-12.2) 03/16/17 06:02 INR 1.1 03/16/17 06:02 APTT 33 SECONDS (21-34) 03/16/17 06:02 - Constitutional Appears: Well - Head Exam Head Exam: ATRAUMATIC, NORMAL INSPECTION, NORMOCEPHALIC - Eye Exam Eye Exam: EOMI, Normal appearance, PERRL Pupil Exam: NORMAL ACCOMODATION, PERRL - ENT Exam ENT Exam: Mucous Membranes Moist, Normal Exam - Neck Exam Neck Exam: Full ROM, Normal Inspection. absent: Lymphadenopathy - Respiratory Exam Respiratory Exam: Decreased Breath Sounds - Cardiovascular Exam Cardiovascular Exam: REGULAR RHYTHM, +S1, +S2 - GI/Abdominal Exam GI & Abdominal Exam: Soft, Diminished Bowel Sounds - Rectal Exam Rectal Exam: Deferred Assessment and Plan (1) Abdominal pain Status: Acute (2) Abrasion Status: Acute (3) Alcohol abuse with intoxication Status: Acute (4) Alcohol intoxication Status: Acute (5) Alcohol withdrawal Status: Acute (6) Alcohol withdrawal seizure Status: Acute (7) Bacteremia Status: Acute (8) Bilateral lower extremity edema Status: Acute (9) Breakthrough seizure Status: Acute (10) Cellulitis Status: Acute (11) Cellulitis of lower extremity Status: Acute (12) Chronic calcific pancreatitis Status: Acute (13) Dehydration Status: Acute (14) Diarrhea Status: Acute (15) Dressing change/suture removal Status: Acute (16) Drug dependence Status: Acute (17) Duodenitis Status: Acute (18) Electrolyte imbalance Status: Acute (19) Elevated alkaline phosphatase level Status: Acute (20) Facial laceration Status: Acute (21) Fever Status: Acute (22) Head trauma Status: Acute (23) Homelessness Status: Acute (24) Hyperphosphatemia Status: Acute (25) Hypokalemia Status: Acute (26) Hypokalemia with normal acid-base balance Status: Acute (27) Hypomagnesemia Status: Acute (28) Hypothermia Status: Acute (29) Low vitamin D level Status: Acute (30) Pancreatic mass Status: Acute (31) Pancreatitis, acute Status: Acute (32) Periapical abscess Status: Acute (33) Pneumonia Status: Acute (34) Pneumonia Status: Acute (35) Prophylactic measure Status: Acute (36) Respiratory failure with hypoxia and hypercapnia Status: Acute (37) Seizure Status: Acute (38) Skull fracture Status: Acute (39) Subarachnoid bleed Status: Acute (40) Subdural hematoma Status: Acute (41) Subdural hemorrhage Status: Acute (42) Thrombocythemia Status: Acute (43) Thrombocytopenia Status: Acute (44) Tobacco abuse Status: Acute (45) Tremors of nervous system Status: Acute (46) Vitamin D deficiency Status: Acute (47) Acute on chronic pancreatitis Status: Chronic (48) Alcohol abuse Status: Chronic (49) Alcohol abuse Status: Chronic (50) Alcohol dependence Status: Chronic (51) Anemia Status: Chronic (52) Anxiety and depression Status: Chronic (53) Aspiration into lower respiratory tract Status: Chronic (54) COPD (chronic obstructive pulmonary disease) Status: Chronic (55) Cholecystitis Status: Chronic (56) Chronic pancreatitis Status: Chronic (57) Depression Status: Chronic (58) Hypertension Status: Chronic (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
[2017-04-17 06:26] LABS: EOS # 0.8 K/uL (0.0-0.7); EOS % 17.4 % (0.0-4.0); HEMATOCRIT 36.1 % (35.0-51.0); LYMPH # 1.5 K/uL (1.0-4.3); LYMPH % 32.3 % (20.0-40.0); MEAN CELL VOLUME 80.2 fL (80.0-94.0); MEAN CORPUSCULAR HEMOGLOBIN 25.5 pg (27.0-31.0); MEAN CORPUSCULAR HGB CONC 31.7 g/dL (33.0-37.0); MEAN PLATELET VOLUME 7.9 fL (7.2-11.7); MONO # 0.4 K/uL (0.0-0.8); MONO % 7.7 % (0.0-10.0); RED CELL DISTRIBUTION WIDTH 18.5 % (11.5-14.5); WHITE BLOOD COUNT 4.6 K/uL (4.8-10.8)
[2017-04-17 06:51] LABS: CHLORIDE 98 mmol/L (98-107)
[2017-04-17 06:52] LABS: POTASSIUM 3.8 mmol/L (3.6-5.2); SODIUM 135 mmol/L (132-148)
[2017-04-17 06:54] LABS: ALB/GLOB RATIO 1.2 (1.0-2.1); AST/SGOT 43 U/L (17-59); BILIRUBIN,TOTAL 0.5 mg/dL (0.2-1.3); BLOOD UREA NITROGEN 10 mg/dL (9-20); CARBON DIOXIDE 25 mmol/L (22-30); GFR AFRICAN-AMERICAN > 60; GLUCOSE,RANDOM 120 mg/dL (75-110); TOTAL PROTEIN 7.5 g/dL (6.3-8.3)
[2017-04-17 06:55] LABS: ALKALINE PHOSPHATASE 95 U/L (38-126); ALT/SGPT 32 U/L (21-72); CALCIUM 9.3 mg/dl (8.6-10.4)
[2017-04-17 08:23] VITALS: RESP 20
[2017-04-17] MEDS: levETIRAcetam 100 mg/ml (5ml) Oral Syringe PO SCH ×2 (09:34→18:32)
[2017-04-17] MEDS: Multiple Vitamins Tab PO SCH (09:34)
--- NOTE | 2017-04-17 13:26 | CP.PCM.PN ---
Subjective - Date & Time of Evaluation Date of Evaluation: 04/17/17 Time of Evaluation: 07:00 - Subjective Subjective: clinically same Objective - Vital Signs/Intake and Output Vital Signs (last 24 hours): Temp Pulse Resp BP Pulse Ox 98.7 F 82 20 113/79 95 04/17/17 08:00 04/17/17 08:00 04/17/17 08:00 04/17/17 08:00 04/17/17 08:00 Intake and Output: 04/17/17 04/17/17 06:59 18:59 Intake Total 240 Balance 240 - Medications Medications: Current Medications Acetaminophen (Tylenol 325mg Tab) 650 mg PO Q6 PRN PRN Reason: Pain, severe (8-10) Last Admin: 04/17/17 09:41 Dose: 650 mg Famotidine (Pepcid) 20 mg PO BID [facility] Last Admin: 04/17/17 09:34 Dose: 20 mg Levetiracetam (Keppra) 500 mg PO BID [facility] Last Admin: 04/17/17 09:34 Dose: 500 mg Multivitamins (Hexavitamin) 1 tab PO DAILY [facility] Last Admin: 04/17/17 09:34 Dose: 1 tab Nicotine (Nicoderm Cq) 1 patch TD DAILY [facility] Last Admin: 04/17/17 09:34 Dose: 1 patch Thiamine HCl (Vitamin B1 Tab) 100 mg PO DAILY [facility] Last Admin: 04/17/17 09:34 Dose: 100 mg - Labs Labs: 04/17/17 06:16 04/17/17 06:16 PT 12.0 SECONDS (9.7-12.2) 03/16/17 06:02 INR 1.1 03/16/17 06:02 APTT 33 SECONDS (21-34) 03/16/17 06:02 - Constitutional Appears: Well - Head Exam Head Exam: ATRAUMATIC, NORMAL INSPECTION, NORMOCEPHALIC - Eye Exam Eye Exam: EOMI, Normal appearance, PERRL Pupil Exam: NORMAL ACCOMODATION, PERRL - ENT Exam ENT Exam: Mucous Membranes Moist, Normal Exam - Neck Exam Neck Exam: Full ROM, Normal Inspection. absent: Lymphadenopathy - Respiratory Exam Respiratory Exam: Decreased Breath Sounds - Cardiovascular Exam Cardiovascular Exam: REGULAR RHYTHM, +S1, +S2 - GI/Abdominal Exam GI & Abdominal Exam: Soft, Diminished Bowel Sounds - Rectal Exam Rectal Exam: Deferred Assessment and Plan - Assessment and Plan (Free Text) Plan: Follow-up neurologist Follow-up IV Continue Ativan Continue Keppra Continue thiamine Continue folic acid Continue Pepcid
--- NOTE | 2017-04-17 17:40 | CP.PCM.PN ---
Subjective - Date & Time of Evaluation Date of Evaluation: 04/17/17 Time of Evaluation: 17:40 - Subjective Subjective: Patient seen and examined No events overnight Physical exam Vital signs noted General - no distress Neck - supple CVS - S1-S2 heard Lungs - bilateral rhonchi Abdomen - soft, ND Extremity - no edema Neuro - nonfocal Assessment/plan S/P acute respiratory failureS/P extubated COPD Pneumonia - s/p Abx Rx [facility] Seizures History of alcohol abuse Thiamine/folate Bronchodilators Awaiting placement Continue supportive care DVT/GI prophylaxis Objective - Vital Signs/Intake and Output Vital Signs (last 24 hours): Temp Pulse Resp BP Pulse Ox 98.9 F 76 20 130/77 96 04/17/17 15:47 04/17/17 15:47 04/17/17 15:47 04/17/17 15:47 04/17/17 15:47 Intake and Output: 04/17/17 04/17/17 06:59 18:59 Intake Total 640 Balance 640 - Medications Medications: Current Medications Acetaminophen (Tylenol 325mg Tab) 650 mg PO Q6 PRN PRN Reason: Pain, severe (8-10) Last Admin: 04/17/17 09:41 Dose: 650 mg Famotidine (Pepcid) 20 mg PO BID [facility] Last Admin: 04/17/17 09:34 Dose: 20 mg Levetiracetam (Keppra) 500 mg PO BID [facility] Last Admin: 04/17/17 09:34 Dose: 500 mg Multivitamins (Hexavitamin) 1 tab PO DAILY [facility] Last Admin: 04/17/17 09:34 Dose: 1 tab Nicotine (Nicoderm Cq) 1 patch TD DAILY [facility] Last Admin: 04/17/17 09:34 Dose: 1 patch Thiamine HCl (Vitamin B1 Tab) 100 mg PO DAILY [facility] Last Admin: 04/17/17 09:34 Dose: 100 mg - Labs Labs: 04/17/17 06:16 04/17/17 06:16 PT 12.0 SECONDS (9.7-12.2) 03/16/17 06:02 INR 1.1 03/16/17 06:02 APTT 33 SECONDS (21-34) 03/16/17 06:02
--- NOTE | 2017-04-17 19:14 | CP.PCM.PN ---
Subjective - Date & Time of Evaluation Date of Evaluation: 04/17/17 Time of Evaluation: 11:00 - Subjective Subjective: Dr. Reed note: Patient seen in room. He has complaints of headache and dizziness and also confusion. Objective - Vital Signs/Intake and Output Vital Signs (last 24 hours): Temp Pulse Resp BP Pulse Ox 98.9 F 76 20 130/77 96 04/17/17 15:47 04/17/17 15:47 04/17/17 15:47 04/17/17 15:47 04/17/17 15:47 Intake and Output: 04/17/17 04/18/17 18:59 06:59 Intake Total 640 Balance 640 - Medications Medications: Current Medications Acetaminophen (Tylenol 325mg Tab) 650 mg PO Q6 PRN PRN Reason: Pain, severe (8-10) Last Admin: 04/17/17 18:33 Dose: 650 mg Famotidine (Pepcid) 20 mg PO BID [facility] Last Admin: 04/17/17 18:32 Dose: 20 mg Levetiracetam (Keppra) 500 mg PO BID [facility] Last Admin: 04/17/17 18:32 Dose: 500 mg Multivitamins (Hexavitamin) 1 tab PO DAILY [facility] Last Admin: 04/17/17 09:34 Dose: 1 tab Nicotine (Nicoderm Cq) 1 patch TD DAILY [facility] Last Admin: 04/17/17 09:34 Dose: 1 patch Thiamine HCl (Vitamin B1 Tab) 100 mg PO DAILY [facility] Last Admin: 04/17/17 09:34 Dose: 100 mg - Labs Labs: 04/17/17 06:16 04/17/17 06:16 PT 12.0 SECONDS (9.7-12.2) 03/16/17 06:02 INR 1.1 03/16/17 06:02 APTT 33 SECONDS (21-34) 03/16/17 06:02 - Constitutional Appears: Non-toxic, No Acute Distress - Eye Exam Eye Exam: Normal appearance Pupil Exam: NORMAL ACCOMODATION - Respiratory Exam Respiratory Exam: Clear to Ausculation Bilateral. absent: Rales, Rhonchi, Wheezes - Cardiovascular Exam Cardiovascular Exam: REGULAR RHYTHM - Extremities Exam Extremities Exam: Normal Inspection - Back Exam Back Exam: NORMAL INSPECTION - Psychiatric Exam Psychiatric exam: Normal Affect, Normal Mood Assessment and Plan - Assessment and Plan (Free Text) Assessment: Assessment & Plan: 04/17: Patient is still an unsafe discharge because of his inability to ambulate safely and his confusion. 04/16: pending placement, unsafe discharge due to patients confusion and inability to ambulate. Patient is a unsafe discharge because he is unable to ambulate without any assistance from someone. He is very unsteady even with a walker and requires assistance for balance. Pending placement. Status: Acute (2) Alcohol abuse Assessment & Plan: continue Folic acid, multivitamin, and thiamine. Status: Chronic (3) Prophylactic measure Assessment & Plan: Heparin 5000U SC Q12 Pepcid 20mg PO BID Management per Dr. Reed
[2017-04-18 08:00] LABS: BASO % 1.1 % (0.0-2.0); EOS # 0.7 K/uL (0.0-0.7); EOS % 17.3 % (0.0-4.0); HEMATOCRIT 35.8 % (35.0-51.0); LYMPH # 1.5 K/uL (1.0-4.3); LYMPH % 33.9 % (20.0-40.0); MEAN CELL VOLUME 79.5 fL (80.0-94.0); MEAN CORPUSCULAR HEMOGLOBIN 25.5 pg (27.0-31.0); MEAN CORPUSCULAR HGB CONC 32.1 g/dL (33.0-37.0); MONO # 0.3 K/uL (0.0-0.8); MONO % 7.5 % (0.0-10.0); NRBC % 0.1 % (0.0-2.0); RED CELL DISTRIBUTION WIDTH 18.6 % (11.5-14.5); WHITE BLOOD COUNT 4.3 K/uL (4.8-10.8)
[2017-04-18 09:37] LABS: CHLORIDE 101 mmol/L (98-107); SODIUM 138 mmol/L (132-148)
[2017-04-18 09:39] LABS: AST/SGOT 42 U/L (17-59); BILIRUBIN,TOTAL 0.5 mg/dL (0.2-1.3); CARBON DIOXIDE 23 mmol/L (22-30); GFR AFRICAN-AMERICAN > 60
[2017-04-18 09:40] LABS: ALB/GLOB RATIO 1.2 (1.0-2.1); ALKALINE PHOSPHATASE 94 U/L (38-126); ALT/SGPT 37 U/L (21-72); BLOOD UREA NITROGEN 11 mg/dL (9-20); CALCIUM 9.8 mg/dl (8.6-10.4); GLUCOSE,RANDOM 115 mg/dL (75-110); TOTAL PROTEIN 7.6 g/dL (6.3-8.3)
[2017-04-18] MEDS: levETIRAcetam 100 mg/ml (5ml) Oral Syringe PO SCH ×2 (10:21→18:22)
[2017-04-18] MEDS: Multiple Vitamins Tab PO SCH (10:21)
--- NOTE | 2017-04-18 11:01 | CP.PCM.PN ---
Subjective - Date & Time of Evaluation Date of Evaluation: 04/18/17 Time of Evaluation: 07:00 - Subjective Subjective: clinically same Objective - Vital Signs/Intake and Output Vital Signs (last 24 hours): Temp Pulse Resp BP Pulse Ox 97.8 F 75 20 128/76 95 04/18/17 07:56 04/18/17 07:56 04/18/17 07:56 04/18/17 07:56 04/18/17 07:56 Intake and Output: 04/18/17 04/18/17 06:59 18:59 Intake Total 660 Balance 660 - Medications Medications: Current Medications Acetaminophen (Tylenol 325mg Tab) 650 mg PO Q6 PRN PRN Reason: Pain, severe (8-10) Last Admin: 04/18/17 06:46 Dose: 650 mg Famotidine (Pepcid) 20 mg PO BID [facility] Last Admin: 04/18/17 10:21 Dose: 20 mg Levetiracetam (Keppra) 500 mg PO BID [facility] Last Admin: 04/18/17 10:21 Dose: 500 mg Multivitamins (Hexavitamin) 1 tab PO DAILY [facility] Last Admin: 04/18/17 10:21 Dose: 1 tab Nicotine (Nicoderm Cq) 1 patch TD DAILY [facility] Last Admin: 04/18/17 10:21 Dose: 1 patch Thiamine HCl (Vitamin B1 Tab) 100 mg PO DAILY [facility] Last Admin: 04/18/17 10:21 Dose: 100 mg - Labs Labs: 04/18/17 07:41 04/18/17 07:41 PT 12.0 SECONDS (9.7-12.2) 03/16/17 06:02 INR 1.1 03/16/17 06:02 APTT 33 SECONDS (21-34) 03/16/17 06:02 - Constitutional Appears: Well - Head Exam Head Exam: ATRAUMATIC, NORMAL INSPECTION, NORMOCEPHALIC - Eye Exam Eye Exam: EOMI, Normal appearance, PERRL Pupil Exam: NORMAL ACCOMODATION, PERRL - ENT Exam ENT Exam: Mucous Membranes Moist, Normal Exam - Neck Exam Neck Exam: Full ROM, Normal Inspection. absent: Lymphadenopathy - Respiratory Exam Respiratory Exam: Decreased Breath Sounds - Cardiovascular Exam Cardiovascular Exam: REGULAR RHYTHM, +S1, +S2 - GI/Abdominal Exam GI & Abdominal Exam: Soft, Diminished Bowel Sounds - Rectal Exam Rectal Exam: Deferred Assessment and Plan - Assessment and Plan (Free Text) Plan: Follow-up neurologist Follow-up IV Continue Ativan Continue Keppra Continue thiamine Continue folic acid Continue Pepcid
--- NOTE | 2017-04-18 13:59 | CP.PCM.PN ---
Subjective - Date & Time of Evaluation Date of Evaluation: 04/18/17 Time of Evaluation: 13:58 - Subjective Subjective: Patient seen and examined No events overnight Physical exam Vital signs noted General - no distress Neck - supple CVS - S1-S2 heard Lungs - bilateral rhonchi Abdomen - soft, ND Extremity - no edema Neuro - nonfocal Assessment/plan S/P acute respiratory failureS/P extubated COPD Pneumonia - s/p Abx Rx [facility] Seizures History of alcohol abuse Thiamine/folate Bronchodilators Awaiting placement Continue supportive care DVT/GI prophylaxis Objective - Vital Signs/Intake and Output Vital Signs (last 24 hours): Temp Pulse Resp BP Pulse Ox 97.8 F 75 20 128/76 95 04/18/17 07:56 04/18/17 07:56 04/18/17 07:56 04/18/17 07:56 04/18/17 07:56 Intake and Output: 04/18/17 04/18/17 06:59 18:59 Intake Total 660 Balance 660 - Medications Medications: Current Medications Acetaminophen (Tylenol 325mg Tab) 650 mg PO Q6 PRN PRN Reason: Pain, severe (8-10) Last Admin: 04/18/17 06:46 Dose: 650 mg Famotidine (Pepcid) 20 mg PO BID [facility] Last Admin: 04/18/17 10:21 Dose: 20 mg Levetiracetam (Keppra) 500 mg PO BID [facility] Last Admin: 04/18/17 10:21 Dose: 500 mg Multivitamins (Hexavitamin) 1 tab PO DAILY [facility] Last Admin: 04/18/17 10:21 Dose: 1 tab Nicotine (Nicoderm Cq) 1 patch TD DAILY [facility] Last Admin: 04/18/17 10:21 Dose: 1 patch Thiamine HCl (Vitamin B1 Tab) 100 mg PO DAILY [facility] Last Admin: 04/18/17 10:21 Dose: 100 mg - Labs Labs: 04/18/17 07:41 04/18/17 07:41 PT 12.0 SECONDS (9.7-12.2) 03/16/17 06:02 INR 1.1 03/16/17 06:02 APTT 33 SECONDS (21-34) 03/16/17 06:02
[2017-04-19 07:57] LABS: BASO % 0.8 % (0.0-2.0); EOS # 0.8 K/uL (0.0-0.7); EOS % 15.5 % (0.0-4.0); LYMPH # 1.8 K/uL (1.0-4.3); LYMPH % 34.6 % (20.0-40.0); MEAN CELL VOLUME 80.5 fL (80.0-94.0); MEAN CORPUSCULAR HEMOGLOBIN 25.8 pg (27.0-31.0); MEAN CORPUSCULAR HGB CONC 32.1 g/dL (33.0-37.0); MEAN PLATELET VOLUME 8.4 fL (7.2-11.7); MONO # 0.4 K/uL (0.0-0.8); MONO % 7.8 % (0.0-10.0); NRBC % 0.1 % (0.0-2.0); RED CELL DISTRIBUTION WIDTH 18.6 % (11.5-14.5); WHITE BLOOD COUNT 5.2 K/uL (4.8-10.8)
[2017-04-19 08:14] LABS: CHLORIDE 96 mmol/L (98-107)
[2017-04-19 08:15] LABS: POTASSIUM 3.9 mmol/L (3.6-5.2); SODIUM 133 mmol/L (132-148)
[2017-04-19 08:17] LABS: ALB/GLOB RATIO 1.3 (1.0-2.1); AST/SGOT 37 U/L (17-59); BILIRUBIN,TOTAL 0.5 mg/dL (0.2-1.3); BLOOD UREA NITROGEN 10 mg/dL (9-20); CARBON DIOXIDE 25 mmol/L (22-30); GFR AFRICAN-AMERICAN > 60; TOTAL PROTEIN 7.8 g/dL (6.3-8.3)
[2017-04-19 08:18] LABS: ALKALINE PHOSPHATASE 91 U/L (38-126); ALT/SGPT 42 U/L (21-72); CALCIUM 9.7 mg/dl (8.6-10.4); GLUCOSE,RANDOM 107 mg/dL (75-110)
[2017-04-19] MEDS: Multiple Vitamins Tab PO SCH (09:37)
[2017-04-19] MEDS: levETIRAcetam 100 mg/ml (5ml) Oral Syringe PO SCH ×2 (10:22→18:50)
--- NOTE | 2017-04-19 16:12 | CP.PCM.PN ---
Subjective - Date & Time of Evaluation Date of Evaluation: 04/19/17 Time of Evaluation: 09:35 - Subjective Subjective: PGY2 Medicine Note - Dr. Scot Reed's service: Patient seen and examined at bedside this AM. Patient reports three weeks of chronic dull chest pain that he has not told anyone about. Patient reports associated cough. Patient denies burning pain, radiation fo pain or reproducibility of pain. Patient also reports worsening headache. Objective - Vital Signs/Intake and Output Vital Signs (last 24 hours): Temp Pulse Resp BP Pulse Ox 98.1 F 68 20 122/78 95 04/19/17 08:00 04/19/17 08:00 04/19/17 08:00 04/19/17 08:00 04/19/17 08:00 Intake and Output: 04/19/17 04/19/17 06:59 18:59 Intake Total 650 360 Balance 650 360 - Medications Medications: Current Medications Acetaminophen (Tylenol 325mg Tab) 650 mg PO Q6 PRN PRN Reason: Pain, severe (8-10) Last Admin: 04/19/17 12:40 Dose: 650 mg Levetiracetam (Keppra) 500 mg PO BID [facility] Last Admin: 04/19/17 10:22 Dose: 500 mg Multivitamins (Hexavitamin) 1 tab PO DAILY [facility] Last Admin: 04/19/17 09:37 Dose: 1 tab Nicotine (Nicoderm Cq) 1 patch TD DAILY [facility] Last Admin: 04/19/17 09:36 Dose: 1 patch Thiamine HCl (Vitamin B1 Tab) 100 mg PO DAILY [facility] Last Admin: 04/19/17 09:37 Dose: 100 mg - Labs Labs: 04/19/17 07:33 04/19/17 07:33 PT 12.0 SECONDS (9.7-12.2) 03/16/17 06:02 INR 1.1 03/16/17 06:02 APTT 33 SECONDS (21-34) 03/16/17 06:02 - Constitutional Appears: Non-toxic, No Acute Distress - Head Exam Head Exam: NORMAL INSPECTION - Eye Exam Eye Exam: EOMI - ENT Exam ENT Exam: Mucous Membranes Moist - Respiratory Exam Respiratory Exam: Rhonchi, NORMAL BREATHING PATTERN. absent: Accessory Muscle Use, Chest Wall Tenderness, Respiratory Distress - Cardiovascular Exam Cardiovascular Exam: REGULAR RHYTHM, +S1, +S2. absent: Gallop, Rubs, Murmur - GI/Abdominal Exam GI & Abdominal Exam: Soft, Normal Bowel Sounds. absent: Tenderness - Extremities Exam Extremities Exam: absent: Pedal Edema - Neurological Exam Neurological Exam: Alert, Awake - Psychiatric Exam Psychiatric exam: Normal Affect, Normal Mood - Skin Skin Exam: Normal Color, Warm Assessment and Plan - Assessment and Plan (Free Text) Assessment: Assessment & Plan: Subdural hematoma 04/19: F/U repeat Head CT as patient's headaches have been worsening 04/17: Patient is still an unsafe discharge because of his inability to ambulate safely and his confusion. 04/16: pending placement, unsafe discharge due to patients confusion and inability to ambulate. Patient is a unsafe discharge because he is unable to ambulate without any assistance from someone. He is very unsteady even with a walker and requires assistance for balance. Pending placement. Status: Acute Chest Pain F/U FAITH and EKG for chronic chest pain F/U CXR Status: Acute Alcohol abuse Assessment & Plan: continue Folic acid, multivitamin, and thiamine. Status: Chronic Prophylactic measure Assessment & Plan: Heparin 5000U SC Q12 Pepcid 20mg PO BID Management per Dr. Reed
--- NOTE | 2017-04-19 16:43 | RAD ---
Chest x-ray single frontal view History: Coughing. Evaluate for pneumonia. Comparison: 03/25/2017 Findings: Prominent confluent consolidative markings at the right lung base concerning for infiltrate versus prominent atelectasis. Clinical correlation. Elevated right hemidiaphragm. Mild venous congestion. Bilateral hilar prominence. Calcification at the aortic knob. Degenerative changes in the spine and shoulders. Impression: Prominent confluent consolidative markings at the right lung base concerning for infiltrate versus prominent atelectasis. Clinical correlation. Elevated right hemidiaphragm. Mild venous congestion. Bilateral hilar prominence. Calcification at the aortic knob.
--- NOTE | 2017-04-19 17:13 | CP.PCM.PN ---
Subjective - Date & Time of Evaluation Date of Evaluation: 04/19/17 Time of Evaluation: 07:00 - Subjective Subjective: clinically same Objective - Vital Signs/Intake and Output Vital Signs (last 24 hours): Temp Pulse Resp BP Pulse Ox 98.5 F 78 20 122/78 95 04/19/17 16:00 04/19/17 16:51 04/19/17 16:00 04/19/17 16:51 04/19/17 16:51 Intake and Output: 04/19/17 04/19/17 06:59 18:59 Intake Total 650 360 Balance 650 360 - Medications Medications: Current Medications Acetaminophen (Tylenol 325mg Tab) 650 mg PO Q6 PRN PRN Reason: Pain, severe (8-10) Last Admin: 04/19/17 12:40 Dose: 650 mg Levetiracetam (Keppra) 500 mg PO BID [facility] Last Admin: 04/19/17 10:22 Dose: 500 mg Multivitamins (Hexavitamin) 1 tab PO DAILY [facility] Last Admin: 04/19/17 09:37 Dose: 1 tab Nicotine (Nicoderm Cq) 1 patch TD DAILY [facility] Last Admin: 04/19/17 09:36 Dose: 1 patch Thiamine HCl (Vitamin B1 Tab) 100 mg PO DAILY [facility] Last Admin: 04/19/17 09:37 Dose: 100 mg - Labs Labs: 04/19/17 07:33 04/19/17 07:33 PT 12.0 SECONDS (9.7-12.2) 03/16/17 06:02 INR 1.1 03/16/17 06:02 APTT 33 SECONDS (21-34) 03/16/17 06:02 - Constitutional Appears: Well - Head Exam Head Exam: ATRAUMATIC, NORMAL INSPECTION, NORMOCEPHALIC - Eye Exam Eye Exam: EOMI, Normal appearance, PERRL Pupil Exam: NORMAL ACCOMODATION, PERRL - ENT Exam ENT Exam: Mucous Membranes Moist, Normal Exam - Neck Exam Neck Exam: Full ROM, Normal Inspection. absent: Lymphadenopathy - Respiratory Exam Respiratory Exam: Decreased Breath Sounds - Cardiovascular Exam Cardiovascular Exam: REGULAR RHYTHM, +S1, +S2 - GI/Abdominal Exam GI & Abdominal Exam: Soft, Diminished Bowel Sounds - Rectal Exam Rectal Exam: Deferred Assessment and Plan - Assessment and Plan (Free Text) Plan: Follow-up neurologist Follow-up IV Continue Ativan Continue Keppra Continue thiamine Continue folic acid Continue Pepcid
--- NOTE | 2017-04-19 18:47 | CT ---
PROCEDURE: CT HEAD WITHOUT CONTRAST. HISTORY: worsening h/a COMPARISON: 03/11/2017 and 04/02/2017. TECHNIQUE: Axial computed tomography images were obtained through the head/brain without intravenous contrast. Radiation dose: Total exam DLP = 840.39 mGy-cm. This CT exam was performed using one or more of the following dose reduction techniques: Automated exposure control, adjustment of the mA and/or kV according to patient size, and/or use of iterative reconstruction technique. FINDINGS: HEMORRHAGE: Interval improvement, resolution of intra-axial hemorrhage identified on serial examinations previously. Small residual extra-axial collection on the left posterior temporoparietal region adjacent to the falx. BRAIN: No mass effect or edema. Focal encephalomalacia kennedy area posterior left parietal region. VENTRICLES: Unremarkable. No hydrocephalus. CALVARIUM: Unremarkable. PARANASAL SINUSES: Unremarkable as visualized. No significant inflammatory changes. MASTOID AIR CELLS: Unremarkable as visualized. No inflammatory changes. OTHER FINDINGS: None. IMPRESSION: Resolution of intra-axial hemorrhage identified on prior-serial studies. Small residual extra-axial fluid collection/subdural hematoma on the left.
--- NOTE | 2017-04-19 18:58 | CP.PCM.PN ---
Subjective - Date & Time of Evaluation Date of Evaluation: 04/19/17 Time of Evaluation: 18:58 - Subjective Subjective: Patient seen and examined No events overnight Physical exam Vital signs noted General - no distress Neck - supple CVS - S1-S2 heard Lungs - bilateral rhonchi Abdomen - soft, ND Extremity - no edema Neuro - nonfocal Assessment/plan S/P acute respiratory failureS/P extubated COPD Pneumonia - s/p Abx Rx SAH SDH Seizures History of alcohol abuse Thiamine/folate Bronchodilators Awaiting placement Continue supportive care DVT/GI prophylaxis Objective - Vital Signs/Intake and Output Vital Signs (last 24 hours): Temp Pulse Resp BP Pulse Ox 98.5 F 78 20 122/78 95 04/19/17 16:00 04/19/17 16:51 04/19/17 16:00 04/19/17 16:51 04/19/17 16:51 Intake and Output: 04/19/17 04/19/17 06:59 18:59 Intake Total 650 360 Balance 650 360 - Medications Medications: Current Medications Acetaminophen (Tylenol 325mg Tab) 650 mg PO Q6 PRN PRN Reason: Pain, severe (8-10) Last Admin: 04/19/17 12:40 Dose: 650 mg Multivitamins (Hexavitamin) 1 tab PO DAILY [facility] Last Admin: 04/19/17 09:37 Dose: 1 tab Nicotine (Nicoderm Cq) 1 patch TD DAILY [facility] Last Admin: 04/19/17 09:36 Dose: 1 patch Thiamine HCl (Vitamin B1 Tab) 100 mg PO DAILY [facility] Last Admin: 04/19/17 09:37 Dose: 100 mg - Labs Labs: 04/19/17 07:33 04/19/17 07:33 PT 12.0 SECONDS (9.7-12.2) 03/16/17 06:02 INR 1.1 03/16/17 06:02 APTT 33 SECONDS (21-34) 03/16/17 06:02
--- NOTE | 2017-04-19 21:10 | CON ---
DATE: 04/19/2017 HISTORY OF PRESENT ILLNESS: This is a 51-year-old male with past medical history of ETOH abuse, hype rtension, arthritis, anxiety, pancreatitis, COPD, came to the Emergency Room, ____ found him unconsci ous lying on the floor with a laceration of the right side of the head. CT head showed right mastoid fracture, small subarachnoid and subdural brain hemorrhage. The patient also had a witnessed seizur e in the Emergency Room and was given Ativan. ALLERGIES: No known drug allergy. PAST MEDICAL HISTORY: As above. SOCIAL HISTORY: Extensive alcohol abuse and smoking and homeless. REVIEW OF SYSTEMS: Feels better now, but still complained of headache and dizziness. Called to evaluate. ALLERGIES: No known drug allergies. PHYSICAL EXAMINATION: HEENT: Normocephalic, atraumatic. NECK: Supple. The patient found to have a base of skull fracture and was seen by Dr. Dumont, [facility]. NEUROLOGIC: On examination cranial nerves II through XII were tested. Pupils reactive. EOM intact. Spontaneous movement of the extremities noted. Deep tendon reflexes are 1+. Both plantars are alex ngoing. Sensory appears intact. Cerebellar gait deferred. IMPRESSION: Status post head trauma, alcohol abuse, status post fracture of the base of the skull wi th intraparenchymal and subdural hemorrhage. The patient was seen by neurosurgery and improving. PLAN: Continue present management. We will follow up. Sterling Ordaz MD cc: [id number] TT: 04/19/2017 21:10:04 Confirmation # [id number] Dictation # [id number] alva
[2017-04-20 07:25] LABS: BASO % 0.9 % (0.0-2.0); EOS # 0.7 K/uL (0.0-0.7); EOS % 14.3 % (0.0-4.0); HEMATOCRIT 35.4 % (35.0-51.0); LYMPH # 1.5 K/uL (1.0-4.3); LYMPH % 28.3 % (20.0-40.0); MEAN CELL VOLUME 79.9 fL (80.0-94.0); MEAN CORPUSCULAR HEMOGLOBIN 25.7 pg (27.0-31.0); MEAN CORPUSCULAR HGB CONC 32.2 g/dL (33.0-37.0); MONO # 0.4 K/uL (0.0-0.8); MONO % 8.1 % (0.0-10.0); NRBC % 0.1 % (0.0-2.0); RED CELL DISTRIBUTION WIDTH 18.6 % (11.5-14.5); WHITE BLOOD COUNT 5.2 K/uL (4.8-10.8)
[2017-04-20 08:05] LABS: CHLORIDE 99 mmol/L (98-107); POTASSIUM 4.1 mmol/L (3.6-5.2); SODIUM 136 mmol/L (132-148)
[2017-04-20 08:07] LABS: AST/SGOT 43 U/L (17-59); BILIRUBIN,TOTAL 0.5 mg/dL (0.2-1.3); CARBON DIOXIDE 23 mmol/L (22-30); GFR AFRICAN-AMERICAN > 60
[2017-04-20 08:08] LABS: ALB/GLOB RATIO 1.2 (1.0-2.1); ALKALINE PHOSPHATASE 90 U/L (38-126); ALT/SGPT 38 U/L (21-72); BLOOD UREA NITROGEN 13 mg/dL (9-20); CALCIUM 9.5 mg/dl (8.6-10.4); GLUCOSE,RANDOM 108 mg/dL (75-110); TOTAL PROTEIN 7.6 g/dL (6.3-8.3)
[2017-04-20] MEDS: Multiple Vitamins Tab PO SCH (09:25)
--- NOTE | 2017-04-20 11:14 | CP.PCM.PN ---
Subjective - Date & Time of Evaluation Date of Evaluation: 04/20/17 Time of Evaluation: 09:00 - Subjective Subjective: clinically same Objective - Vital Signs/Intake and Output Vital Signs (last 24 hours): Temp Pulse Resp BP Pulse Ox 98.4 F 64 20 134/82 96 04/20/17 00:00 04/20/17 00:00 04/20/17 00:00 04/20/17 00:00 04/20/17 00:00 Intake and Output: 04/20/17 04/20/17 06:59 18:59 Intake Total 750 Balance 750 - Medications Medications: Current Medications Acetaminophen (Tylenol 325mg Tab) 650 mg PO Q6 PRN PRN Reason: Pain, severe (8-10) Last Admin: 04/20/17 05:04 Dose: 650 mg Multivitamins (Hexavitamin) 1 tab PO DAILY [facility] Last Admin: 04/20/17 09:25 Dose: 1 tab Nicotine (Nicoderm Cq) 1 patch TD DAILY [facility] Last Admin: 04/20/17 09:25 Dose: 1 patch Thiamine HCl (Vitamin B1 Tab) 100 mg PO DAILY [facility] Last Admin: 04/20/17 09:25 Dose: 100 mg Topiramate (Topamax) 50 mg PO DAILY [facility] - Labs Labs: 04/20/17 07:07 04/20/17 07:07 PT 12.0 SECONDS (9.7-12.2) 03/16/17 06:02 INR 1.1 03/16/17 06:02 APTT 33 SECONDS (21-34) 03/16/17 06:02 - Constitutional Appears: Well - Head Exam Head Exam: ATRAUMATIC, NORMAL INSPECTION, NORMOCEPHALIC - Eye Exam Eye Exam: EOMI, Normal appearance, PERRL Pupil Exam: NORMAL ACCOMODATION, PERRL - ENT Exam ENT Exam: Mucous Membranes Moist, Normal Exam - Neck Exam Neck Exam: Full ROM, Normal Inspection. absent: Lymphadenopathy - Respiratory Exam Respiratory Exam: Decreased Breath Sounds - Cardiovascular Exam Cardiovascular Exam: REGULAR RHYTHM, +S1, +S2 - GI/Abdominal Exam GI & Abdominal Exam: Soft, Diminished Bowel Sounds - Rectal Exam Rectal Exam: Deferred Assessment and Plan (1) Abdominal pain Status: Acute (2) Abrasion Status: Acute (3) Alcohol abuse with intoxication Status: Acute (4) Alcohol intoxication Status: Acute (5) Alcohol withdrawal Status: Acute (6) Alcohol withdrawal seizure Status: Acute (7) Bacteremia Status: Acute (8) Bilateral lower extremity edema Status: Acute (9) Breakthrough seizure Status: Acute (10) Cellulitis Status: Acute (11) Cellulitis of lower extremity Status: Acute (12) Chronic calcific pancreatitis Status: Acute (13) Dehydration Status: Acute (14) Diarrhea Status: Acute (15) Dressing change/suture removal Status: Acute (16) Drug dependence Status: Acute (17) Duodenitis Status: Acute (18) Electrolyte imbalance Status: Acute (19) Elevated alkaline phosphatase level Status: Acute (20) Facial laceration Status: Acute (21) Fever Status: Acute (22) Head trauma Status: Acute (23) Homelessness Status: Acute (24) Hyperphosphatemia Status: Acute (25) Hypokalemia Status: Acute (26) Hypokalemia with normal acid-base balance Status: Acute (27) Hypomagnesemia Status: Acute (28) Hypothermia Status: Acute (29) Low vitamin D level Status: Acute (30) Pancreatic mass Status: Acute (31) Pancreatitis, acute Status: Acute (32) Periapical abscess Status: Acute (33) Pneumonia Status: Acute (34) Pneumonia Status: Acute (35) Prophylactic measure Status: Acute (36) Respiratory failure with hypoxia and hypercapnia Status: Acute (37) Seizure Status: Acute (38) Skull fracture Status: Acute (39) Subarachnoid bleed Status: Acute (40) Subdural hematoma Status: Acute (41) Subdural hemorrhage Status: Acute (42) Thrombocythemia Status: Acute (43) Thrombocytopenia Status: Acute (44) Tobacco abuse Status: Acute (45) Tremors of nervous system Status: Acute (46) Vitamin D deficiency Status: Acute (47) Acute on chronic pancreatitis Status: Chronic (48) Alcohol abuse Status: Chronic (49) Alcohol abuse Status: Chronic (50) Alcohol dependence Status: Chronic (51) Anemia Status: Chronic (52) Anxiety and depression Status: Chronic (53) Aspiration into lower respiratory tract Status: Chronic (54) COPD (chronic obstructive pulmonary disease) Status: Chronic (55) Cholecystitis Status: Chronic (56) Chronic pancreatitis Status: Chronic (57) Depression Status: Chronic (58) Hypertension Status: Chronic (59) Peripheral motor neuropathy Status: Chronic (60) Empyema Status: Suspected (61) Seizure Status: Resolved - Assessment and Plan (Free Text) Plan: Follow-up neurologist Follow-up IV Head CT shows resolving hematoma Continue Keppra Continue thiamine Continue folic acid Continue Pepcid
--- NOTE | 2017-04-20 11:19 | CP.PCM.PN ---
Subjective - Date & Time of Evaluation Date of Evaluation: 04/20/17 Time of Evaluation: 11:19 - Subjective Subjective: Patient seen and examined No events overnight Physical exam Vital signs noted General - no distress Neck - supple CVS - S1-S2 heard Lungs - bilateral rhonchi Abdomen - soft, ND Extremity - no edema Neuro - nonfocal Assessment/plan S/P acute respiratory failureS/P extubated COPD Pneumonia - s/p Abx Rx [facility]H SDH Seizures History of alcohol abuse Thiamine/folate Bronchodilators Awaiting placement Continue supportive care DVT/GI prophylaxis Objective - Vital Signs/Intake and Output Vital Signs (last 24 hours): Temp Pulse Resp BP Pulse Ox 98.4 F 64 20 134/82 96 04/20/17 00:00 04/20/17 00:00 04/20/17 00:00 04/20/17 00:00 04/20/17 00:00 Intake and Output: 04/20/17 04/20/17 06:59 18:59 Intake Total 750 Balance 750 - Medications Medications: Current Medications Acetaminophen (Tylenol 325mg Tab) 650 mg PO Q6 PRN PRN Reason: Pain, severe (8-10) Last Admin: 04/20/17 05:04 Dose: 650 mg Multivitamins (Hexavitamin) 1 tab PO DAILY [facility] Last Admin: 04/20/17 09:25 Dose: 1 tab Nicotine (Nicoderm Cq) 1 patch TD DAILY [facility] Last Admin: 04/20/17 09:25 Dose: 1 patch Thiamine HCl (Vitamin B1 Tab) 100 mg PO DAILY [facility] Last Admin: 04/20/17 09:25 Dose: 100 mg Topiramate (Topamax) 50 mg PO DAILY [facility] Last Admin: 04/20/17 10:59 Dose: 50 mg - Labs Labs: 04/20/17 07:07 04/20/17 07:07 PT 12.0 SECONDS (9.7-12.2) 03/16/17 06:02 INR 1.1 03/16/17 06:02 APTT 33 SECONDS (21-34) 03/16/17 06:02
--- NOTE | 2017-04-20 11:57 | CP.PCM.PN ---
Subjective - Date & Time of Evaluation Date of Evaluation: 04/20/17 Time of Evaluation: 07:55 - Subjective Subjective: PGY2 Medicine Note - Dr. Scot Reed's service: Patient seen and examined at bedside this AM. Patient reports three weeks of chronic dull headache. Patient denies fever, chills, SOB. Patient reports chronic cough productive of yellow phelgm for over 5 years from smoking. Objective - Vital Signs/Intake and Output Vital Signs (last 24 hours): Temp Pulse Resp BP Pulse Ox 98.4 F 64 20 134/82 96 04/20/17 00:00 04/20/17 00:00 04/20/17 00:00 04/20/17 00:00 04/20/17 00:00 Intake and Output: 04/20/17 04/20/17 06:59 18:59 Intake Total 750 Balance 750 - Medications Medications: Current Medications Acetaminophen (Tylenol 325mg Tab) 650 mg PO Q6 PRN PRN Reason: Pain, severe (8-10) Last Admin: 04/20/17 05:04 Dose: 650 mg Multivitamins (Hexavitamin) 1 tab PO DAILY [facility] Last Admin: 04/20/17 09:25 Dose: 1 tab Nicotine (Nicoderm Cq) 1 patch TD DAILY [facility] Last Admin: 04/20/17 09:25 Dose: 1 patch Thiamine HCl (Vitamin B1 Tab) 100 mg PO DAILY [facility] Last Admin: 04/20/17 09:25 Dose: 100 mg Topiramate (Topamax) 50 mg PO DAILY [facility] Last Admin: 04/20/17 10:59 Dose: 50 mg - Labs Labs: 04/20/17 07:07 04/20/17 07:07 PT 12.0 SECONDS (9.7-12.2) 03/16/17 06:02 INR 1.1 03/16/17 06:02 APTT 33 SECONDS (21-34) 03/16/17 06:02 - Constitutional Appears: Non-toxic, No Acute Distress - Head Exam Head Exam: NORMAL INSPECTION - Eye Exam Eye Exam: EOMI - ENT Exam ENT Exam: Mucous Membranes Moist - Respiratory Exam Respiratory Exam: Clear to Ausculation Bilateral, NORMAL BREATHING PATTERN. absent: Rales, Rhonchi, Wheezes - Cardiovascular Exam Cardiovascular Exam: REGULAR RHYTHM, +S1, +S2. absent: Gallop, Rubs, Murmur - GI/Abdominal Exam GI & Abdominal Exam: Soft, Tenderness, Normal Bowel Sounds - Extremities Exam Extremities Exam: absent: Pedal Edema - Neurological Exam Neurological Exam: Alert, Awake, Oriented x3 - Psychiatric Exam Psychiatric exam: Normal Affect, Normal Mood - Skin Skin Exam: Normal Color, Warm Assessment and Plan - Assessment and Plan (Free Text) Assessment: Subdural hematoma 04/20: Head CT - resolving hematoma (please see full report) Dr. Nicolette Ordaz wrote patient is improving 04/19: F/U repeat Head CT as patient's headaches have been worsening 04/17: Patient is still an unsafe discharge because of his inability to ambulate safely and his confusion. 04/16: pending placement, unsafe discharge due to patients confusion and inability to ambulate. Patient is a unsafe discharge because he is unable to ambulate without any assistance from someone. He is very unsteady even with a walker and requires assistance for balance. Pending placement. Status: Acute Chest Pain FAITH negative CXR - right lung base consolidative markings, hilar prominence - no clinical symptoms Status: Acute Alcohol abuse Assessment & Plan: continue Folic acid, multivitamin, and thiamine. Status: Chronic Prophylactic measure Assessment & Plan: Heparin 5000U SC Q12 Pepcid 20mg PO BID Management per Dr. Reed
--- NOTE | 2017-04-20 12:10 | CP.PCM.PN ---
Subjective - Date & Time of Evaluation Date of Evaluation: 04/20/17 Time of Evaluation: 07:00 - Subjective Subjective: Clinically same Objective - Vital Signs/Intake and Output Vital Signs (last 24 hours): Temp Pulse Resp BP Pulse Ox 98.4 F 64 20 134/82 96 04/20/17 00:00 04/20/17 00:00 04/20/17 00:00 04/20/17 00:00 04/20/17 00:00 Intake and Output: 04/20/17 04/20/17 06:59 18:59 Intake Total 750 Balance 750 - Medications Medications: Current Medications Acetaminophen (Tylenol 325mg Tab) 650 mg PO Q6 PRN PRN Reason: Pain, severe (8-10) Last Admin: 04/20/17 05:04 Dose: 650 mg Multivitamins (Hexavitamin) 1 tab PO DAILY [facility] Last Admin: 04/20/17 09:25 Dose: 1 tab Nicotine (Nicoderm Cq) 1 patch TD DAILY [facility] Last Admin: 04/20/17 09:25 Dose: 1 patch Thiamine HCl (Vitamin B1 Tab) 100 mg PO DAILY [facility] Last Admin: 04/20/17 09:25 Dose: 100 mg Topiramate (Topamax) 50 mg PO DAILY [facility] Last Admin: 04/20/17 10:59 Dose: 50 mg - Labs Labs: 04/20/17 07:07 04/20/17 07:07 PT 12.0 SECONDS (9.7-12.2) 03/16/17 06:02 INR 1.1 03/16/17 06:02 APTT 33 SECONDS (21-34) 03/16/17 06:02 - Constitutional Appears: Well - Head Exam Head Exam: ATRAUMATIC, NORMAL INSPECTION, NORMOCEPHALIC - Eye Exam Eye Exam: EOMI, Normal appearance, PERRL Pupil Exam: NORMAL ACCOMODATION, PERRL - ENT Exam ENT Exam: Mucous Membranes Moist, Normal Exam - Neck Exam Neck Exam: Full ROM, Normal Inspection. absent: Lymphadenopathy - Respiratory Exam Respiratory Exam: Decreased Breath Sounds - Cardiovascular Exam Cardiovascular Exam: REGULAR RHYTHM, +S1, +S2 - GI/Abdominal Exam GI & Abdominal Exam: Soft, Diminished Bowel Sounds - Rectal Exam Rectal Exam: Deferred Assessment and Plan (1) Abdominal pain Status: Acute (2) Abrasion Status: Acute (3) Alcohol abuse with intoxication Status: Acute (4) Alcohol intoxication Status: Acute (5) Alcohol withdrawal Status: Acute (6) Alcohol withdrawal seizure Status: Acute (7) Bacteremia Status: Acute (8) Bilateral lower extremity edema Status: Acute (9) Breakthrough seizure Status: Acute (10) Cellulitis Status: Acute (11) Cellulitis of lower extremity Status: Acute (12) Chronic calcific pancreatitis Status: Acute (13) Dehydration Status: Acute (14) Diarrhea Status: Acute (15) Dressing change/suture removal Status: Acute (16) Drug dependence Status: Acute (17) Duodenitis Status: Acute (18) Electrolyte imbalance Status: Acute (19) Elevated alkaline phosphatase level Status: Acute (20) Facial laceration Status: Acute (21) Fever Status: Acute (22) Head trauma Status: Acute (23) Homelessness Status: Acute (24) Hyperphosphatemia Status: Acute (25) Hypokalemia Status: Acute (26) Hypokalemia with normal acid-base balance Status: Acute (27) Hypomagnesemia Status: Acute (28) Hypothermia Status: Acute (29) Low vitamin D level Status: Acute (30) Pancreatic mass Status: Acute (31) Pancreatitis, acute Status: Acute (32) Periapical abscess Status: Acute (33) Pneumonia Status: Acute (34) Pneumonia Status: Acute (35) Prophylactic measure Status: Acute (36) Respiratory failure with hypoxia and hypercapnia Status: Acute (37) Seizure Status: Acute (38) Skull fracture Status: Acute (39) Subarachnoid bleed Status: Acute (40) Subdural hematoma Status: Acute (41) Subdural hemorrhage Status: Acute (42) Thrombocythemia Status: Acute (43) Thrombocytopenia Status: Acute (44) Tobacco abuse Status: Acute (45) Tremors of nervous system Status: Acute (46) Vitamin D deficiency Status: Acute (47) Acute on chronic pancreatitis Status: Chronic (48) Alcohol abuse Status: Chronic (49) Alcohol abuse Status: Chronic (50) Alcohol dependence Status: Chronic (51) Anemia Status: Chronic (52) Anxiety and depression Status: Chronic (53) Aspiration into lower respiratory tract Status: Chronic (54) COPD (chronic obstructive pulmonary disease) Status: Chronic (55) Cholecystitis Status: Chronic (56) Chronic pancreatitis Status: Chronic (57) Depression Status: Chronic (58) Hypertension Status: Chronic (59) Peripheral motor neuropathy Status: Chronic (60) Empyema Status: Suspected (61) Seizure Status: Resolved - Assessment and Plan (Free Text) Plan: Follow-up neurologist Follow-up IV Head CT shows resolving hematoma Continue Keppra Continue thiamine Continue folic acid Continue Pepcid
[2017-04-21] MEDS: Multiple Vitamins Tab PO SCH (09:03)
--- NOTE | 2017-04-21 10:10 | CP.PCM.PN ---
Subjective - Date & Time of Evaluation Date of Evaluation: 04/21/17 Time of Evaluation: 07:00 - Subjective Subjective: clinically same Objective - Vital Signs/Intake and Output Vital Signs (last 24 hours): Temp Pulse Resp BP Pulse Ox 98.5 F 75 20 120/70 96 04/21/17 07:44 04/21/17 07:44 04/21/17 07:44 04/21/17 07:44 04/21/17 07:44 Intake and Output: 04/21/17 04/21/17 06:59 18:59 Intake Total 250 Balance 250 - Medications Medications: Current Medications Acetaminophen (Tylenol 325mg Tab) 650 mg PO Q6 PRN PRN Reason: Pain, severe (8-10) Last Admin: 04/21/17 08:36 Dose: 650 mg Multivitamins (Hexavitamin) 1 tab PO DAILY [facility] Last Admin: 04/21/17 09:03 Dose: 1 tab Nicotine (Nicoderm Cq) 1 patch TD DAILY [facility] Last Admin: 04/21/17 09:04 Dose: 1 patch Thiamine HCl (Vitamin B1 Tab) 100 mg PO DAILY [facility] Last Admin: 04/21/17 09:03 Dose: 100 mg Topiramate (Topamax) 50 mg PO DAILY [facility] Last Admin: 04/21/17 09:03 Dose: 50 mg - Labs Labs: 04/20/17 07:07 04/20/17 07:07 PT 12.0 SECONDS (9.7-12.2) 03/16/17 06:02 INR 1.1 03/16/17 06:02 APTT 33 SECONDS (21-34) 03/16/17 06:02 - Constitutional Appears: Well - Head Exam Head Exam: ATRAUMATIC, NORMAL INSPECTION, NORMOCEPHALIC - Eye Exam Eye Exam: EOMI, Normal appearance, PERRL Pupil Exam: NORMAL ACCOMODATION, PERRL - ENT Exam ENT Exam: Mucous Membranes Moist, Normal Exam - Neck Exam Neck Exam: Full ROM, Normal Inspection. absent: Lymphadenopathy - Respiratory Exam Respiratory Exam: Decreased Breath Sounds - Cardiovascular Exam Cardiovascular Exam: REGULAR RHYTHM, +S1, +S2 - GI/Abdominal Exam GI & Abdominal Exam: Soft, Diminished Bowel Sounds - Rectal Exam Rectal Exam: Deferred Assessment and Plan (1) Abdominal pain Status: Acute (2) Abrasion Status: Acute (3) Alcohol abuse with intoxication Status: Acute (4) Alcohol intoxication Status: Acute (5) Alcohol withdrawal Status: Acute (6) Alcohol withdrawal seizure Status: Acute (7) Bacteremia Status: Acute (8) Bilateral lower extremity edema Status: Acute (9) Breakthrough seizure Status: Acute (10) Cellulitis Status: Acute (11) Cellulitis of lower extremity Status: Acute (12) Chronic calcific pancreatitis Status: Acute (13) Dehydration Status: Acute (14) Diarrhea Status: Acute (15) Dressing change/suture removal Status: Acute (16) Drug dependence Status: Acute (17) Duodenitis Status: Acute (18) Electrolyte imbalance Status: Acute (19) Elevated alkaline phosphatase level Status: Acute (20) Facial laceration Status: Acute (21) Fever Status: Acute (22) Head trauma Status: Acute (23) Homelessness Status: Acute (24) Hyperphosphatemia Status: Acute (25) Hypokalemia Status: Acute (26) Hypokalemia with normal acid-base balance Status: Acute (27) Hypomagnesemia Status: Acute (28) Hypothermia Status: Acute (29) Low vitamin D level Status: Acute (30) Pancreatic mass Status: Acute (31) Pancreatitis, acute Status: Acute (32) Periapical abscess Status: Acute (33) Pneumonia Status: Acute (34) Pneumonia Status: Acute (35) Prophylactic measure Status: Acute (36) Respiratory failure with hypoxia and hypercapnia Status: Acute (37) Seizure Status: Acute (38) Skull fracture Status: Acute (39) Subarachnoid bleed Status: Acute (40) Subdural hematoma Status: Acute (41) Subdural hemorrhage Status: Acute (42) Thrombocythemia Status: Acute (43) Thrombocytopenia Status: Acute (44) Tobacco abuse Status: Acute (45) Tremors of nervous system Status: Acute (46) Vitamin D deficiency Status: Acute (47) Acute on chronic pancreatitis Status: Chronic (48) Alcohol abuse Status: Chronic (49) Alcohol abuse Status: Chronic (50) Alcohol dependence Status: Chronic (51) Anemia Status: Chronic (52) Anxiety and depression Status: Chronic (53) Aspiration into lower respiratory tract Status: Chronic (54) COPD (chronic obstructive pulmonary disease) Status: Chronic (55) Cholecystitis Status: Chronic (56) Chronic pancreatitis Status: Chronic (57) Depression Status: Chronic (58) Hypertension Status: Chronic (59) Peripheral motor neuropathy Status: Chronic (60) Empyema Status: Suspected (61) Seizure Status: Resolved - Assessment and Plan (Free Text) Plan: Follow-up neurologist Follow-up IV Continue Keppra Continue thiamine Continue folic acid Continue Pepcid
[2017-04-22] MEDS: Multiple Vitamins Tab PO SCH (10:31)
--- NOTE | 2017-04-23 07:26 | CP.PCM.PN ---
Subjective - Date & Time of Evaluation Date of Evaluation: 04/23/17 Time of Evaluation: 07:00 - Subjective Subjective: Medicine Note- Dr. Reed's service Patient was seen and examined at bedside. Patient complains of chronic headache , but says that taking tylenol controls it well. He reports no additional acute complaints at this time. No events overnight, per nursing. Objective - Vital Signs/Intake and Output Vital Signs (last 24 hours): Temp Pulse Resp BP Pulse Ox 97.6 F 77 20 138/77 96 04/23/17 00:00 04/23/17 00:00 04/23/17 00:00 04/23/17 00:00 04/23/17 00:00 Intake and Output: 04/23/17 04/23/17 06:59 18:59 Intake Total 640 Balance 640 - Medications Medications: Current Medications Acetaminophen (Tylenol 325mg Tab) 650 mg PO Q6 PRN PRN Reason: Pain, severe (8-10) Last Admin: 04/23/17 05:36 Dose: 650 mg Multivitamins (Hexavitamin) 1 tab PO DAILY [facility] Last Admin: 04/22/17 10:31 Dose: 1 tab Nicotine (Nicoderm Cq) 1 patch TD DAILY [facility] Last Admin: 04/22/17 10:32 Dose: 1 patch Thiamine HCl (Vitamin B1 Tab) 100 mg PO DAILY [facility] Last Admin: 04/22/17 10:31 Dose: 100 mg Topiramate (Topamax) 50 mg PO DAILY [facility] Last Admin: 04/22/17 10:31 Dose: 50 mg - Labs Labs: 04/20/17 07:07 04/20/17 07:07 PT 12.0 SECONDS (9.7-12.2) 03/16/17 06:02 INR 1.1 03/16/17 06:02 APTT 33 SECONDS (21-34) 03/16/17 06:02 - Constitutional Appears: Non-toxic, No Acute Distress - Head Exam Head Exam: ATRAUMATIC, NORMAL INSPECTION, NORMOCEPHALIC - Eye Exam Pupil Exam: NORMAL ACCOMODATION - ENT Exam ENT Exam: Mucous Membranes Moist - Respiratory Exam Respiratory Exam: Clear to Ausculation Bilateral, NORMAL BREATHING PATTERN. absent: Prolonged Expiratory Phase, Rales, Rhonchi, Wheezes - Cardiovascular Exam Cardiovascular Exam: REGULAR RHYTHM, +S1, +S2 - GI/Abdominal Exam GI & Abdominal Exam: Soft, Normal Bowel Sounds. absent: Tenderness, Diminished Bowel Sounds, Hypoactive Bowel Sounds - Extremities Exam Extremities Exam: Normal Capillary Refill - Neurological Exam Neurological Exam: Alert, Awake - Psychiatric Exam Psychiatric exam: Normal Affect, Normal Mood - Skin Skin Exam: Dry, Intact, Normal Color, Warm Assessment and Plan - Assessment and Plan (Free Text) Assessment: Subdural hematoma 04/20: Head CT - resolving hematoma (please see full report) Dr. Nicolette Ordaz wrote patient is improving 04/19: F/U repeat Head CT as patient's headaches have been worsening 04/17: Patient is still an unsafe discharge because of his inability to ambulate safely and his confusion. 04/16: pending placement, unsafe discharge due to patients confusion and inability to ambulate. Patient is a unsafe discharge because he is unable to ambulate without any assistance from someone. He is very unsteady even with a walker and requires assistance for balance. Pending placement. Status: Acute Chest Pain FAITH negative CXR - right lung base consolidative markings, hilar prominence - no clinical symptoms Status: Acute Alcohol abuse Assessment & Plan: continue Folic acid, multivitamin, and thiamine. Status: Chronic Prophylactic measure Assessment & Plan: Heparin 5000U SC Q12 Pepcid 20mg PO BID Management per Dr. Reed
[2017-04-23] MEDS: Multiple Vitamins Tab PO SCH (09:37)
--- NOTE | 2017-04-23 15:43 | CP.PCM.PN ---
Subjective - Date & Time of Evaluation Date of Evaluation: 04/23/17 Time of Evaluation: 15:43 - Subjective Subjective: Patient seen and examined No events overnight Physical exam Vital signs noted General - no distress Neck - supple CVS - S1-S2 heard Lungs - bilateral rhonchi Abdomen - soft, ND Extremity - no edema Neuro - nonfocal Assessment/plan S/P acute respiratory failureS/P extubated COPD Pneumonia - s/p Abx Rx [facility] SDH Seizures History of alcohol abuse Thiamine/folate Bronchodilators Awaiting placement Continue supportive care DVT/GI prophylaxis Objective - Vital Signs/Intake and Output Vital Signs (last 24 hours): Temp Pulse Resp BP Pulse Ox 98.2 F 87 20 119/76 98 04/23/17 08:00 04/23/17 14:14 04/23/17 08:00 04/23/17 08:00 04/23/17 14:14 Intake and Output: 04/23/17 04/23/17 06:59 18:59 Intake Total 640 500 Balance 640 500 - Medications Medications: Current Medications Acetaminophen (Tylenol 325mg Tab) 650 mg PO Q6 PRN PRN Reason: Pain, severe (8-10) Last Admin: 04/23/17 11:54 Dose: 650 mg Folic Acid (Folic Acid) 1 mg PO DAILY [facility] Multivitamins (Hexavitamin) 1 tab PO DAILY [facility] Nicotine (Nicoderm Cq) 1 patch TD DAILY [facility] Last Admin: 04/23/17 09:38 Dose: 1 patch Topiramate (Topamax) 50 mg PO DAILY [facility] Last Admin: 04/23/17 09:38 Dose: 50 mg - Labs Labs: 04/20/17 07:07 04/20/17 07:07 PT 12.0 SECONDS (9.7-12.2) 03/16/17 06:02 INR 1.1 03/16/17 06:02 APTT 33 SECONDS (21-34) 03/16/17 06:02
--- NOTE | 2017-04-23 15:54 | CP.PCM.PN ---
Subjective - Date & Time of Evaluation Date of Evaluation: 04/23/17 Time of Evaluation: 07:00 - Subjective Subjective: Clinically same Objective - Vital Signs/Intake and Output Vital Signs (last 24 hours): Temp Pulse Resp BP Pulse Ox 98.2 F 87 20 119/76 98 04/23/17 08:00 04/23/17 14:14 04/23/17 08:00 04/23/17 08:00 04/23/17 14:14 Intake and Output: 04/23/17 04/23/17 06:59 18:59 Intake Total 640 500 Balance 640 500 - Medications Medications: Current Medications Acetaminophen (Tylenol 325mg Tab) 650 mg PO Q6 PRN PRN Reason: Pain, severe (8-10) Last Admin: 04/23/17 11:54 Dose: 650 mg Folic Acid (Folic Acid) 1 mg PO DAILY [facility] Multivitamins (Hexavitamin) 1 tab PO DAILY [facility] Nicotine (Nicoderm Cq) 1 patch TD DAILY [facility] Last Admin: 04/23/17 09:38 Dose: 1 patch Topiramate (Topamax) 50 mg PO DAILY [facility] Last Admin: 04/23/17 09:38 Dose: 50 mg - Labs Labs: 04/20/17 07:07 04/20/17 07:07 PT 12.0 SECONDS (9.7-12.2) 03/16/17 06:02 INR 1.1 03/16/17 06:02 APTT 33 SECONDS (21-34) 03/16/17 06:02 - Constitutional Appears: Well - Head Exam Head Exam: ATRAUMATIC, NORMAL INSPECTION, NORMOCEPHALIC - Eye Exam Eye Exam: EOMI, Normal appearance, PERRL Pupil Exam: NORMAL ACCOMODATION, PERRL - ENT Exam ENT Exam: Mucous Membranes Moist, Normal Exam - Neck Exam Neck Exam: Full ROM, Normal Inspection. absent: Lymphadenopathy - Respiratory Exam Respiratory Exam: Decreased Breath Sounds - Cardiovascular Exam Cardiovascular Exam: REGULAR RHYTHM, +S1, +S2 - GI/Abdominal Exam GI & Abdominal Exam: Soft, Diminished Bowel Sounds - Rectal Exam Rectal Exam: Deferred Assessment and Plan (1) Abdominal pain Status: Acute (2) Abrasion Status: Acute (3) Alcohol abuse with intoxication Status: Acute (4) Alcohol intoxication Status: Acute (5) Alcohol withdrawal Status: Acute (6) Alcohol withdrawal seizure Status: Acute (7) Bacteremia Status: Acute (8) Bilateral lower extremity edema Status: Acute (9) Breakthrough seizure Status: Acute (10) Cellulitis Status: Acute (11) Cellulitis of lower extremity Status: Acute (12) Chronic calcific pancreatitis Status: Acute (13) Dehydration Status: Acute (14) Diarrhea Status: Acute (15) Dressing change/suture removal Status: Acute (16) Drug dependence Status: Acute (17) Duodenitis Status: Acute (18) Electrolyte imbalance Status: Acute (19) Elevated alkaline phosphatase level Status: Acute (20) Facial laceration Status: Acute (21) Fever Status: Acute (22) Head trauma Status: Acute (23) Homelessness Status: Acute (24) Hyperphosphatemia Status: Acute (25) Hypokalemia Status: Acute (26) Hypokalemia with normal acid-base balance Status: Acute (27) Hypomagnesemia Status: Acute (28) Hypothermia Status: Acute (29) Low vitamin D level Status: Acute (30) Pancreatic mass Status: Acute (31) Pancreatitis, acute Status: Acute (32) Periapical abscess Status: Acute (33) Pneumonia Status: Acute (34) Pneumonia Status: Acute (35) Prophylactic measure Status: Acute (36) Respiratory failure with hypoxia and hypercapnia Status: Acute (37) Seizure Status: Acute (38) Skull fracture Status: Acute (39) Subarachnoid bleed Status: Acute (40) Subdural hematoma Status: Acute (41) Subdural hemorrhage Status: Acute (42) Thrombocythemia Status: Acute (43) Thrombocytopenia Status: Acute (44) Tobacco abuse Status: Acute (45) Tremors of nervous system Status: Acute (46) Vitamin D deficiency Status: Acute (47) Acute on chronic pancreatitis Status: Chronic (48) Alcohol abuse Status: Chronic (49) Alcohol abuse Status: Chronic (50) Alcohol dependence Status: Chronic (51) Anemia Status: Chronic (52) Anxiety and depression Status: Chronic (53) Aspiration into lower respiratory tract Status: Chronic (54) COPD (chronic obstructive pulmonary disease) Status: Chronic (55) Cholecystitis Status: Chronic (56) Chronic pancreatitis Status: Chronic (57) Depression Status: Chronic (58) Hypertension Status: Chronic (59) Peripheral motor neuropathy Status: Chronic (60) Empyema Status: Suspected (61) Seizure Status: Resolved - Assessment and Plan (Free Text) Plan: Follow-up neurologist Follow-up IV Continue Sharathppra Continue thiamine Continue folic acid Continue Pepcid
[2017-04-24 07:11] LABS: BASO # 0.1 K/uL (0.0-0.2); BASO % 1.4 % (0.0-2.0); EOS # 0.6 K/uL (0.0-0.7); EOS % 12.9 % (0.0-4.0); HEMATOCRIT 37.5 % (35.0-51.0); LYMPH # 1.5 K/uL (1.0-4.3); MEAN CELL VOLUME 80.9 fL (80.0-94.0); MEAN CORPUSCULAR HEMOGLOBIN 25.7 pg (27.0-31.0); MEAN CORPUSCULAR HGB CONC 31.8 g/dL (33.0-37.0); MEAN PLATELET VOLUME 8.2 fL (7.2-11.7); MONO # 0.3 K/uL (0.0-0.8); MONO % 7.8 % (0.0-10.0); RED CELL DISTRIBUTION WIDTH 18.8 % (11.5-14.5); WHITE BLOOD COUNT 4.3 K/uL (4.8-10.8)
[2017-04-24 07:23] LABS: CHLORIDE 104 mmol/L (98-107); POTASSIUM 3.8 mmol/L (3.6-5.2); SODIUM 138 mmol/L (132-148)
[2017-04-24 07:25] LABS: AST/SGOT 44 U/L (17-59); BILIRUBIN,TOTAL 0.5 mg/dL (0.2-1.3); CARBON DIOXIDE 21 mmol/L (22-30); GFR AFRICAN-AMERICAN > 60
[2017-04-24 07:26] LABS: ALB/GLOB RATIO 1.2 (1.0-2.1); ALKALINE PHOSPHATASE 90 U/L (38-126); ALT/SGPT 51 U/L (21-72); BLOOD UREA NITROGEN 12 mg/dL (9-20); CALCIUM 9.7 mg/dl (8.6-10.4); GLUCOSE,RANDOM 107 mg/dL (75-110); TOTAL PROTEIN 7.8 g/dL (6.3-8.3)
--- NOTE | 2017-04-24 09:17 | CP.PCM.PN ---
Subjective - Date & Time of Evaluation Date of Evaluation: 04/24/17 Time of Evaluation: 07:10 - Subjective Subjective: Medicine Note- Dr. Reed's service Patient was seen and examined at bedside. Patient reports he still has a chronic headache, but says the tylenol does well to take the edge off. Patient otherwise has no acute complaints. Objective - Vital Signs/Intake and Output Vital Signs (last 24 hours): Temp Pulse Resp BP Pulse Ox 97.6 F 76 20 124/74 98 04/24/17 08:00 04/24/17 08:00 04/24/17 08:00 04/24/17 08:00 04/24/17 08:00 Intake and Output: 04/24/17 04/24/17 06:59 18:59 Intake Total 200 Balance 200 - Medications Medications: Current Medications Acetaminophen (Tylenol 325mg Tab) 650 mg PO Q6 PRN PRN Reason: Pain, severe (8-10) Last Admin: 04/24/17 00:49 Dose: 650 mg Folic Acid (Folic Acid) 1 mg PO DAILY [facility] Multivitamins (Hexavitamin) 1 tab PO DAILY [facility] Nicotine (Nicoderm Cq) 1 patch TD DAILY [facility] Last Admin: 04/23/17 09:38 Dose: 1 patch Topiramate (Topamax) 50 mg PO DAILY [facility] Last Admin: 04/23/17 09:38 Dose: 50 mg - Labs Labs: 04/24/17 06:48 04/24/17 06:48 PT 12.0 SECONDS (9.7-12.2) 03/16/17 06:02 INR 1.1 03/16/17 06:02 APTT 33 SECONDS (21-34) 03/16/17 06:02 - Constitutional Appears: Non-toxic, No Acute Distress - Head Exam Head Exam: ATRAUMATIC, NORMAL INSPECTION, NORMOCEPHALIC - Eye Exam Pupil Exam: NORMAL ACCOMODATION, PERRL - ENT Exam ENT Exam: Mucous Membranes Moist - Neck Exam Neck Exam: Normal Inspection - Respiratory Exam Respiratory Exam: Clear to Ausculation Bilateral, NORMAL BREATHING PATTERN. absent: Prolonged Expiratory Phase, Rales, Rhonchi, Wheezes - Cardiovascular Exam Cardiovascular Exam: REGULAR RHYTHM, +S1, +S2 - GI/Abdominal Exam GI & Abdominal Exam: Soft, Normal Bowel Sounds. absent: Tenderness, Diminished Bowel Sounds, Hypoactive Bowel Sounds, Pulsatile Mass - Extremities Exam Extremities Exam: Normal Capillary Refill, Normal Inspection - Neurological Exam Neurological Exam: Alert, Awake, Oriented x3 - Psychiatric Exam Psychiatric exam: Normal Affect, Normal Mood - Skin Skin Exam: Dry, Intact, Normal Color, Warm Assessment and Plan - Assessment and Plan (Free Text) Assessment: Subdural hematoma Consult Neuro- Dr. Ordaz Tylenol 650mg PO Q6h PRN for headaches 04/20: Head CT - resolving hematoma (please see full report) 04/19: F/U repeat Head CT as patient's headaches have been worsening 04/17: Patient is still an unsafe discharge because of his inability to ambulate safely and his confusion. 04/16: pending placement, unsafe discharge due to patients confusion and inability to ambulate. Patient is a unsafe discharge because he is unable to ambulate without any assistance from someone. He is very unsteady even with a walker and requires assistance for balance. Pending placement. Status: Acute Chest Pain FAITH negative CXR - right lung base consolidative markings, hilar prominence - no clinical symptoms Status: Acute Alcohol abuse Assessment & Plan: continue Folic acid, multivitamin, and thiamine. Status: Chronic Prophylactic measure Assessment & Plan: Heparin 5000U SC Q12 Pepcid 20mg PO BID Management per Dr. Derek FRITZ Planning
[2017-04-24] MEDS ORDERED: Aluminum Hydroxide/Magnesium Hydroxide Susp (30 mL) PO PRN (09:22)
[2017-04-24] MEDS: Multiple Vitamins Tab PO SCH (09:38)
--- NOTE | 2017-04-24 14:58 | CP.PCM.PN ---
Subjective - Date & Time of Evaluation Date of Evaluation: 04/24/17 Time of Evaluation: 14:58 - Subjective Subjective: Patient seen and examined No events overnight Physical exam Vital signs noted General - no distress Neck - supple CVS - S1-S2 heard Lungs - bilateral rhonchi Abdomen - soft, ND Extremity - no edema Neuro - nonfocal Assessment/plan S/P acute respiratory failureS/P extubated COPD Pneumonia - s/p Abx Rx [facility] Seizures History of alcohol abuse Thiamine/folate Bronchodilators Awaiting placement Continue supportive care DVT/GI prophylaxis Objective - Vital Signs/Intake and Output Vital Signs (last 24 hours): Temp Pulse Resp BP Pulse Ox 97.6 F 76 20 124/74 98 04/24/17 08:00 04/24/17 08:00 04/24/17 08:00 04/24/17 08:00 04/24/17 08:00 Intake and Output: 04/24/17 04/24/17 06:59 18:59 Intake Total 200 Balance 200 - Medications Medications: Current Medications Acetaminophen (Tylenol 325mg Tab) 650 mg PO Q6 PRN PRN Reason: Pain, severe (8-10) Last Admin: 04/24/17 09:37 Dose: 650 mg Al Hydrox/Mg Hydrox/Simethicone (Maalox 30 Ml) 30 ml PO BID PRN PRN Reason: Indigestion / Heartburn Stop: 04/30/17 09:23 Folic Acid (Folic Acid) 1 mg PO DAILY [facility] Last Admin: 04/24/17 09:38 Dose: 1 mg Multivitamins (Hexavitamin) 1 tab PO DAILY [facility] Last Admin: 04/24/17 09:38 Dose: 1 tab Nicotine (Nicoderm Cq) 1 patch TD DAILY [facility] Last Admin: 04/24/17 09:38 Dose: 1 patch Topiramate (Topamax) 50 mg PO DAILY [facility] Last Admin: 04/24/17 09:38 Dose: 50 mg - Labs Labs: 04/24/17 06:48 04/24/17 06:48 PT 12.0 SECONDS (9.7-12.2) 03/16/17 06:02 INR 1.1 03/16/17 06:02 APTT 33 SECONDS (21-34) 03/16/17 06:02
--- NOTE | 2017-04-24 15:08 | CP.PCM.PN ---
Subjective - Date & Time of Evaluation Date of Evaluation: 04/24/17 Time of Evaluation: 07:00 - Subjective Subjective: clinically same Objective - Vital Signs/Intake and Output Vital Signs (last 24 hours): Temp Pulse Resp BP Pulse Ox 97.6 F 76 20 124/74 98 04/24/17 08:00 04/24/17 08:00 04/24/17 08:00 04/24/17 08:00 04/24/17 08:00 Intake and Output: 04/24/17 04/24/17 06:59 18:59 Intake Total 200 Balance 200 - Medications Medications: Current Medications Acetaminophen (Tylenol 325mg Tab) 650 mg PO Q6 PRN PRN Reason: Pain, severe (8-10) Last Admin: 04/24/17 14:58 Dose: 650 mg Al Hydrox/Mg Hydrox/Simethicone (Maalox 30 Ml) 30 ml PO BID PRN PRN Reason: Indigestion / Heartburn Stop: 04/30/17 09:23 Last Admin: 04/24/17 14:58 Dose: 30 ml Folic Acid (Folic Acid) 1 mg PO DAILY [facility] Last Admin: 04/24/17 09:38 Dose: 1 mg Multivitamins (Hexavitamin) 1 tab PO DAILY [facility] Last Admin: 04/24/17 09:38 Dose: 1 tab Nicotine (Nicoderm Cq) 1 patch TD DAILY [facility] Last Admin: 04/24/17 09:38 Dose: 1 patch Topiramate (Topamax) 50 mg PO DAILY [facility] Last Admin: 04/24/17 09:38 Dose: 50 mg - Labs Labs: 04/24/17 06:48 04/24/17 06:48 PT 12.0 SECONDS (9.7-12.2) 03/16/17 06:02 INR 1.1 03/16/17 06:02 APTT 33 SECONDS (21-34) 03/16/17 06:02 - Constitutional Appears: Well - Head Exam Head Exam: ATRAUMATIC, NORMAL INSPECTION, NORMOCEPHALIC - Eye Exam Eye Exam: EOMI, Normal appearance, PERRL Pupil Exam: NORMAL ACCOMODATION, PERRL - ENT Exam ENT Exam: Mucous Membranes Moist, Normal Exam - Neck Exam Neck Exam: Full ROM, Normal Inspection. absent: Lymphadenopathy - Respiratory Exam Respiratory Exam: Decreased Breath Sounds - Cardiovascular Exam Cardiovascular Exam: REGULAR RHYTHM, +S1, +S2 - GI/Abdominal Exam GI & Abdominal Exam: Soft, Diminished Bowel Sounds - Rectal Exam Rectal Exam: Deferred Assessment and Plan (1) Abdominal pain Status: Acute (2) Abrasion Status: Acute (3) Alcohol abuse with intoxication Status: Acute (4) Alcohol intoxication Status: Acute (5) Alcohol withdrawal Status: Acute (6) Alcohol withdrawal seizure Status: Acute (7) Bacteremia Status: Acute (8) Bilateral lower extremity edema Status: Acute (9) Breakthrough seizure Status: Acute (10) Cellulitis Status: Acute (11) Cellulitis of lower extremity Status: Acute (12) Chronic calcific pancreatitis Status: Acute (13) Dehydration Status: Acute (14) Diarrhea Status: Acute (15) Dressing change/suture removal Status: Acute (16) Drug dependence Status: Acute (17) Duodenitis Status: Acute (18) Electrolyte imbalance Status: Acute (19) Elevated alkaline phosphatase level Status: Acute (20) Facial laceration Status: Acute (21) Fever Status: Acute (22) Head trauma Status: Acute (23) Homelessness Status: Acute (24) Hyperphosphatemia Status: Acute (25) Hypokalemia Status: Acute (26) Hypokalemia with normal acid-base balance Status: Acute (27) Hypomagnesemia Status: Acute (28) Hypothermia Status: Acute (29) Low vitamin D level Status: Acute (30) Pancreatic mass Status: Acute (31) Pancreatitis, acute Status: Acute (32) Periapical abscess Status: Acute (33) Pneumonia Status: Acute (34) Pneumonia Status: Acute (35) Prophylactic measure Status: Acute (36) Respiratory failure with hypoxia and hypercapnia Status: Acute (37) Seizure Status: Acute (38) Skull fracture Status: Acute (39) Subarachnoid bleed Status: Acute (40) Subdural hematoma Status: Acute (41) Subdural hemorrhage Status: Acute (42) Thrombocythemia Status: Acute (43) Thrombocytopenia Status: Acute (44) Tobacco abuse Status: Acute (45) Tremors of nervous system Status: Acute (46) Vitamin D deficiency Status: Acute (47) Acute on chronic pancreatitis Status: Chronic (48) Alcohol abuse Status: Chronic (49) Alcohol abuse Status: Chronic (50) Alcohol dependence Status: Chronic (51) Anemia Status: Chronic (52) Anxiety and depression Status: Chronic (53) Aspiration into lower respiratory tract Status: Chronic (54) COPD (chronic obstructive pulmonary disease) Status: Chronic (55) Cholecystitis Status: Chronic (56) Chronic pancreatitis Status: Chronic (57) Depression Status: Chronic (58) Hypertension Status: Chronic (59) Peripheral motor neuropathy Status: Chronic (60) Empyema Status: Suspected (61) Seizure Status: Resolved - Assessment and Plan (Free Text) Plan: Follow-up neurologist Follow-up IV Tylenol as needed for headache Continue Keppra Continue thiamine Continue folic acid Continue Pepcid
[2017-04-25 07:32] LABS: EOS # 0.6 K/uL (0.0-0.7); EOS % 12.2 % (0.0-4.0); LYMPH # 1.7 K/uL (1.0-4.3); LYMPH % 35.4 % (20.0-40.0); MEAN CELL VOLUME 80.7 fL (80.0-94.0); MEAN CORPUSCULAR HEMOGLOBIN 25.8 pg (27.0-31.0); MEAN PLATELET VOLUME 8.2 fL (7.2-11.7); MONO # 0.3 K/uL (0.0-0.8); MONO % 7.4 % (0.0-10.0); NRBC % 0.1 % (0.0-2.0); RED CELL DISTRIBUTION WIDTH 19.1 % (11.5-14.5); WHITE BLOOD COUNT 4.7 K/uL (4.8-10.8)
[2017-04-25 07:49] LABS: CHLORIDE 104 mmol/L (98-107)
[2017-04-25 07:50] LABS: POTASSIUM 3.9 mmol/L (3.6-5.2); SODIUM 138 mmol/L (132-148)
[2017-04-25 07:52] LABS: ALB/GLOB RATIO 1.1 (1.0-2.1); AST/SGOT 54 U/L (17-59); BILIRUBIN,TOTAL 0.6 mg/dL (0.2-1.3); CARBON DIOXIDE 20 mmol/L (22-30); GFR AFRICAN-AMERICAN > 60
[2017-04-25 07:53] LABS: ALKALINE PHOSPHATASE 96 U/L (38-126); ALT/SGPT 61 U/L (21-72); BLOOD UREA NITROGEN 12 mg/dL (9-20); CALCIUM 9.8 mg/dl (8.6-10.4); GLUCOSE,RANDOM 106 mg/dL (75-110)
[2017-04-25] MEDS: Multiple Vitamins Tab PO SCH (09:32)
--- NOTE | 2017-04-25 09:53 | CP.PCM.PN ---
Subjective - Date & Time of Evaluation Date of Evaluation: 04/25/17 Time of Evaluation: 07:20 - Subjective Subjective: Medicine Note- Dr. Reed's service Patient was seen and examined at bedside. Patient reports he still has a chronic headache, but says the Tylenol helps partially alleviate it. He complains of loose stools today. Otherwise no acute complaints. Denies f/c, blurry vision, chest pain, palpitations, SOB, abdominal pain, n/v, dysuria, urinary frequency, or any other acute complaints. Objective - Vital Signs/Intake and Output Vital Signs (last 24 hours): Temp Pulse Resp BP Pulse Ox 98 F 74 20 122/78 97 04/25/17 07:00 04/25/17 07:00 04/25/17 07:00 04/25/17 07:00 04/25/17 07:00 Intake and Output: 04/25/17 04/25/17 06:59 18:59 Intake Total 740 Output Total 1 Balance 739 - Medications Medications: Current Medications Acetaminophen (Tylenol 325mg Tab) 650 mg PO Q6 PRN PRN Reason: Pain, severe (8-10) Last Admin: 04/25/17 09:32 Dose: 650 mg Al Hydrox/Mg Hydrox/Simethicone (Maalox 30 Ml) 30 ml PO BID PRN PRN Reason: Indigestion / Heartburn Stop: 04/30/17 09:23 Last Admin: 04/24/17 14:58 Dose: 30 ml Folic Acid (Folic Acid) 1 mg PO DAILY [facility] Last Admin: 04/25/17 09:32 Dose: 1 mg Multivitamins (Hexavitamin) 1 tab PO DAILY [facility] Last Admin: 04/25/17 09:32 Dose: 1 tab Nicotine (Nicoderm Cq) 1 patch TD DAILY [facility] Last Admin: 04/25/17 09:32 Dose: 1 patch Topiramate (Topamax) 50 mg PO DAILY [facility] Last Admin: 04/25/17 09:32 Dose: 50 mg - Labs Labs: 04/25/17 07:28 04/25/17 07:28 PT 12.0 SECONDS (9.7-12.2) 03/16/17 06:02 INR 1.1 03/16/17 06:02 APTT 33 SECONDS (21-34) 05/12/17 06:02 - Additional Findings Additional findings: - Constitutional Appears: Non-toxic, No Acute Distress - Head Exam Head Exam: ATRAUMATIC, NORMAL INSPECTION, NORMOCEPHALIC - Eye Exam Pupil Exam: NORMAL ACCOMODATION, PERRL - ENT Exam ENT Exam: Mucous Membranes Moist - Neck Exam Neck Exam: Normal Inspection - Respiratory Exam Respiratory Exam: Clear to Ausculation Bilateral, NORMAL BREATHING PATTERN. absent: Prolonged Expiratory Phase, Rales, Rhonchi, Wheezes - Cardiovascular Exam Cardiovascular Exam: REGULAR RHYTHM, +S1, +S2 - GI/Abdominal Exam GI & Abdominal Exam: Soft, Normal Bowel Sounds. absent: Tenderness, Diminished Bowel Sounds, Hypoactive Bowel Sounds, Pulsatile Mass - Extremities Exam Extremities Exam: Normal Capillary Refill, Normal Inspection - Neurological Exam Neurological Exam: Alert, Awake, Oriented x3 - Psychiatric Exam Psychiatric exam: Normal Affect, Normal Mood - Skin Skin Exam: Dry, Intact, Normal Color, Warm Assessment and Plan - Assessment and Plan (Free Text) Assessment: Subdural hematoma - Consult Neuro- Dr. Ordaz - Tylenol 650mg PO Q6h PRN for headaches - partially help his chronic headache. 04/20: Head CT - resolving hematoma (please see full report) 04/19: F/U repeat Head CT as patient's headaches have been worsening 04/17: Patient is still an unsafe discharge because of his inability to ambulate safely and his confusion. 04/16: pending placement, unsafe discharge due to patients confusion and inability to ambulate. Patient is a unsafe discharge because he is unable to ambulate without any assistance from someone. He is very unsteady even with a walker and requires assistance for balance. Pending placement. Status: Acute Chest Pain FAITH negative CXR - right lung base consolidative markings, hilar prominence - no clinical symptoms Status: Acute Alcohol abuse Assessment & Plan: continue Folic acid, multivitamin, and thiamine. Status: Chronic Prophylactic measure Assessment & Plan: Heparin 5000U SC Q12 - C/I due to subdural bleed. Pepcid 20mg PO BID Management per Dr. Reed DC Planning
--- NOTE | 2017-04-25 16:44 | CP.PCM.PN ---
Subjective - Date & Time of Evaluation Date of Evaluation: 04/25/17 Time of Evaluation: 07:00 - Subjective Subjective: clinically same Objective - Vital Signs/Intake and Output Vital Signs (last 24 hours): Temp Pulse Resp BP Pulse Ox 98.2 F 74 20 122/78 97 04/25/17 15:00 04/25/17 16:06 04/25/17 15:00 04/25/17 16:06 04/25/17 16:06 Intake and Output: 04/25/17 04/25/17 06:59 18:59 Intake Total 740 Output Total 1 Balance 739 - Medications Medications: Current Medications Acetaminophen (Tylenol 325mg Tab) 650 mg PO Q6 PRN PRN Reason: Pain, severe (8-10) Last Admin: 04/25/17 16:34 Dose: 650 mg Al Hydrox/Mg Hydrox/Simethicone (Maalox 30 Ml) 30 ml PO BID PRN PRN Reason: Indigestion / Heartburn Stop: 04/30/17 09:23 Last Admin: 04/24/17 14:58 Dose: 30 ml Folic Acid (Folic Acid) 1 mg PO DAILY [facility] Last Admin: 04/25/17 09:32 Dose: 1 mg Multivitamins (Hexavitamin) 1 tab PO DAILY [facility] Last Admin: 04/25/17 09:32 Dose: 1 tab Nicotine (Nicoderm Cq) 1 patch TD DAILY [facility] Last Admin: 04/25/17 09:32 Dose: 1 patch Topiramate (Topamax) 50 mg PO DAILY [facility] Last Admin: 04/25/17 09:32 Dose: 50 mg - Labs Labs: 04/25/17 07:28 04/25/17 07:28 PT 12.0 SECONDS (9.7-12.2) 03/16/17 06:02 INR 1.1 03/16/17 06:02 APTT 33 SECONDS (21-34) 03/16/17 06:02 - Constitutional Appears: Well - Head Exam Head Exam: ATRAUMATIC, NORMAL INSPECTION, NORMOCEPHALIC - Eye Exam Eye Exam: EOMI, Normal appearance, PERRL Pupil Exam: NORMAL ACCOMODATION, PERRL - ENT Exam ENT Exam: Mucous Membranes Moist, Normal Exam - Neck Exam Neck Exam: Full ROM, Normal Inspection. absent: Lymphadenopathy - Respiratory Exam Respiratory Exam: Decreased Breath Sounds - Cardiovascular Exam Cardiovascular Exam: REGULAR RHYTHM, +S1, +S2 - GI/Abdominal Exam GI & Abdominal Exam: Soft, Diminished Bowel Sounds - Rectal Exam Rectal Exam: Deferred Assessment and Plan (1) Abdominal pain Status: Acute (2) Abrasion Status: Acute (3) Alcohol abuse with intoxication Status: Acute (4) Alcohol intoxication Status: Acute (5) Alcohol withdrawal Status: Acute (6) Alcohol withdrawal seizure Status: Acute (7) Bacteremia Status: Acute (8) Bilateral lower extremity edema Status: Acute (9) Breakthrough seizure Status: Acute (10) Cellulitis Status: Acute (11) Cellulitis of lower extremity Status: Acute (12) Chronic calcific pancreatitis Status: Acute (13) Dehydration Status: Acute (14) Diarrhea Status: Acute (15) Dressing change/suture removal Status: Acute (16) Drug dependence Status: Acute (17) Duodenitis Status: Acute (18) Electrolyte imbalance Status: Acute (19) Elevated alkaline phosphatase level Status: Acute (20) Facial laceration Status: Acute (21) Fever Status: Acute (22) Head trauma Status: Acute (23) Homelessness Status: Acute (24) Hyperphosphatemia Status: Acute (25) Hypokalemia Status: Acute (26) Hypokalemia with normal acid-base balance Status: Acute (27) Hypomagnesemia Status: Acute (28) Hypothermia Status: Acute (29) Low vitamin D level Status: Acute (30) Pancreatic mass Status: Acute (31) Pancreatitis, acute Status: Acute (32) Periapical abscess Status: Acute (33) Pneumonia Status: Acute (34) Pneumonia Status: Acute (35) Prophylactic measure Status: Acute (36) Respiratory failure with hypoxia and hypercapnia Status: Acute (37) Seizure Status: Acute (38) Skull fracture Status: Acute (39) Subarachnoid bleed Status: Acute (40) Subdural hematoma Status: Acute (41) Subdural hemorrhage Status: Acute (42) Thrombocythemia Status: Acute (43) Thrombocytopenia Status: Acute (44) Tobacco abuse Status: Acute (45) Tremors of nervous system Status: Acute (46) Vitamin D deficiency Status: Acute (47) Acute on chronic pancreatitis Status: Chronic (48) Alcohol abuse Status: Chronic (49) Alcohol abuse Status: Chronic (50) Alcohol dependence Status: Chronic (51) Anemia Status: Chronic (52) Anxiety and depression Status: Chronic (53) Aspiration into lower respiratory tract Status: Chronic (54) COPD (chronic obstructive pulmonary disease) Status: Chronic (55) Cholecystitis Status: Chronic (56) Chronic pancreatitis Status: Chronic (57) Depression Status: Chronic (58) Hypertension Status: Chronic (59) Peripheral motor neuropathy Status: Chronic (60) Empyema Status: Suspected (61) Seizure Status: Resolved - Assessment and Plan (Free Text) Plan: Follow-up neurologist Follow-up IV Continue Keppra Continue thiamine Continue folic acid Continue Pepcid
--- NOTE | 2017-04-25 17:38 | CP.PCM.PN ---
Subjective - Date & Time of Evaluation Date of Evaluation: 04/25/17 Time of Evaluation: 17:38 - Subjective Subjective: Patient seen and examined No events overnight Physical exam Vital signs noted General - no distress Neck - supple CVS - S1-S2 heard Lungs - bilateral rhonchi Abdomen - soft, ND Extremity - no edema Neuro - nonfocal Assessment/plan S/P acute respiratory failureS/P extubated COPD Pneumonia - s/p Abx Rx SAH SDH Seizures History of alcohol abuse Thiamine/folate Bronchodilators Awaiting placement Continue supportive care DVT/GI prophylaxis Objective - Vital Signs/Intake and Output Vital Signs (last 24 hours): Temp Pulse Resp BP Pulse Ox 98.2 F 74 20 122/78 97 04/25/17 15:00 04/25/17 16:06 04/25/17 15:00 04/25/17 16:06 04/25/17 16:06 Intake and Output: 04/25/17 04/25/17 06:59 18:59 Intake Total 740 Output Total 1 Balance 739 - Medications Medications: Current Medications Acetaminophen (Tylenol 325mg Tab) 650 mg PO Q6 PRN PRN Reason: Pain, severe (8-10) Last Admin: 04/25/17 16:34 Dose: 650 mg Al Hydrox/Mg Hydrox/Simethicone (Maalox 30 Ml) 30 ml PO BID PRN PRN Reason: Indigestion / Heartburn Stop: 04/30/17 09:23 Last Admin: 04/24/17 14:58 Dose: 30 ml Folic Acid (Folic Acid) 1 mg PO DAILY [facility] Last Admin: 04/25/17 09:32 Dose: 1 mg Multivitamins (Hexavitamin) 1 tab PO DAILY [facility] Last Admin: 04/25/17 09:32 Dose: 1 tab Nicotine (Nicoderm Cq) 1 patch TD DAILY [facility] Last Admin: 04/25/17 09:32 Dose: 1 patch Topiramate (Topamax) 50 mg PO DAILY [facility] Last Admin: 04/25/17 09:32 Dose: 50 mg - Labs Labs: 04/25/17 07:28 04/25/17 07:28 PT 12.0 SECONDS (9.7-12.2) 03/16/17 06:02 INR 1.1 03/16/17 06:02 APTT 33 SECONDS (21-34) 03/16/17 06:02
--- NOTE | 2017-04-26 06:29 | CP.PCM.PN ---
Subjective - Date & Time of Evaluation Date of Evaluation: 04/26/17 Time of Evaluation: 07:05 - Subjective Subjective: Medicine Note- Dr. Reed's service Patient was seen and examined at bedside. Patient reports that he still has a chronic headache, which is being treated with tylenol. He reports some abdominal pain which he said he has had for a few weeks. Patient is tolerating PO, no nausea, vomiting, diarrhea, constipation. No events overnight, per nursing. Objective - Vital Signs/Intake and Output Vital Signs (last 24 hours): Temp Pulse Resp BP Pulse Ox 97.6 F 72 20 114/77 96 04/26/17 00:16 04/26/17 00:16 04/26/17 00:16 04/26/17 00:16 04/26/17 00:16 Intake and Output: 04/25/17 04/26/17 18:59 06:59 Intake Total 400 Balance 400 - Medications Medications: Current Medications Acetaminophen (Tylenol 325mg Tab) 650 mg PO Q6 PRN PRN Reason: Pain, severe (8-10) Last Admin: 04/26/17 04:48 Dose: 650 mg Al Hydrox/Mg Hydrox/Simethicone (Maalox 30 Ml) 30 ml PO BID PRN PRN Reason: Indigestion / Heartburn Stop: 04/30/17 09:23 Last Admin: 04/24/17 14:58 Dose: 30 ml Folic Acid (Folic Acid) 1 mg PO DAILY [facility] Last Admin: 04/25/17 09:32 Dose: 1 mg Multivitamins (Hexavitamin) 1 tab PO DAILY [facility] Last Admin: 04/25/17 09:32 Dose: 1 tab Nicotine (Nicoderm Cq) 1 patch TD DAILY [facility] Last Admin: 04/25/17 09:32 Dose: 1 patch Topiramate (Topamax) 50 mg PO DAILY [facility] Last Admin: 04/25/17 09:32 Dose: 50 mg - Labs Labs: 04/25/17 07:28 04/25/17 07:28 PT 12.0 SECONDS (9.7-12.2) 03/16/17 06:02 INR 1.1 03/16/17 06:02 APTT 33 SECONDS (21-34) 03/16/17 06:02 - Constitutional Appears: Non-toxic, No Acute Distress - Head Exam Head Exam: ATRAUMATIC, NORMAL INSPECTION, NORMOCEPHALIC - Eye Exam Pupil Exam: NORMAL ACCOMODATION, PERRL - ENT Exam ENT Exam: Mucous Membranes Moist - Respiratory Exam Respiratory Exam: Clear to Ausculation Bilateral, NORMAL BREATHING PATTERN. absent: Rales, Rhonchi, Wheezes - Cardiovascular Exam Cardiovascular Exam: REGULAR RHYTHM, +S1, +S2 - GI/Abdominal Exam GI & Abdominal Exam: Soft, Normal Bowel Sounds. absent: Tenderness, Diminished Bowel Sounds, Hernia, Hypoactive Bowel Sounds - Extremities Exam Extremities Exam: Normal Capillary Refill - Neurological Exam Neurological Exam: Alert, Awake, Oriented x3 - Psychiatric Exam Psychiatric exam: Normal Affect, Normal Mood - Skin Skin Exam: Dry, Intact, Normal Color, Warm Assessment and Plan - Assessment and Plan (Free Text) Assessment: Subdural hematoma - Consult Neuro- Dr. Ordaz - Tylenol 650mg PO Q6h PRN for headaches - partially help his chronic headache. 04/20: Head CT - resolving hematoma (please see full report) 04/19: F/U repeat Head CT as patient's headaches have been worsening 04/17: Patient is still an unsafe discharge because of his inability to ambulate safely and his confusion. 04/16: pending placement, unsafe discharge due to patients confusion and inability to ambulate. Patient is a unsafe discharge because he is unable to ambulate without any assistance from someone. He is very unsteady even with a walker and requires assistance for balance. Pending placement. Status: Acute Chest Pain FAITH negative CXR - right lung base consolidative markings, hilar prominence - no clinical symptoms Status: Acute Chronic Pancreatitis Assessment & Plan: Likely secondary to alcoholism continue Folic acid, multivitamin, and thiamine. Status: Chronic Prophylactic measure Assessment & Plan: Heparin 5000U SC Q12 - C/I due to subdural bleed. Pepcid 20mg PO BID Management per Dr. Derek FRITZ Planning
[2017-04-26 07:59] LABS: BASO # 0.1 K/uL (0.0-0.2); BASO % 1.1 % (0.0-2.0); EOS # 0.5 K/uL (0.0-0.7); EOS % 11.2 % (0.0-4.0); HEMATOCRIT 39.4 % (35.0-51.0); LYMPH # 1.6 K/uL (1.0-4.3); LYMPH % 34.2 % (20.0-40.0); MEAN CORPUSCULAR HEMOGLOBIN 25.9 pg (27.0-31.0); MEAN PLATELET VOLUME 8.2 fL (7.2-11.7); MONO # 0.3 K/uL (0.0-0.8); MONO % 6.3 % (0.0-10.0); NRBC % 0.1 % (0.0-2.0); RED CELL DISTRIBUTION WIDTH 18.6 % (11.5-14.5); WHITE BLOOD COUNT 4.7 K/uL (4.8-10.8)
[2017-04-26 08:05] LABS: CHLORIDE 100 mmol/L (98-107); POTASSIUM 4.2 mmol/L (3.6-5.2); SODIUM 137 mmol/L (132-148)
[2017-04-26 08:07] LABS: AST/SGOT 46 U/L (17-59); BILIRUBIN,TOTAL 0.5 mg/dL (0.2-1.3); CARBON DIOXIDE 20 mmol/L (22-30); GFR AFRICAN-AMERICAN > 60
[2017-04-26 08:08] LABS: ALKALINE PHOSPHATASE 93 U/L (38-126); ALT/SGPT 62 U/L (21-72); BLOOD UREA NITROGEN 11 mg/dL (9-20); CALCIUM 9.9 mg/dl (8.6-10.4); GLUCOSE,RANDOM 134 mg/dL (75-110); TOTAL PROTEIN 8.8 g/dL (6.3-8.3)
[2017-04-26] MEDS: Multiple Vitamins Tab PO SCH (09:33)
--- NOTE | 2017-04-26 15:47 | CP.PCM.PN ---
Subjective - Date & Time of Evaluation Date of Evaluation: 04/26/17 Time of Evaluation: 07:00 - Subjective Subjective: clinically same Objective - Vital Signs/Intake and Output Vital Signs (last 24 hours): Temp Pulse Resp BP Pulse Ox 98.3 F 81 20 122/84 96 04/26/17 08:20 04/26/17 08:20 04/26/17 08:20 04/26/17 08:20 04/26/17 08:20 Intake and Output: 04/26/17 04/26/17 06:59 18:59 Intake Total 650 Balance 650 - Medications Medications: Current Medications Acetaminophen (Tylenol 325mg Tab) 650 mg PO Q6 PRN PRN Reason: Pain, severe (8-10) Last Admin: 04/26/17 11:34 Dose: 650 mg Al Hydrox/Mg Hydrox/Simethicone (Maalox 30 Ml) 30 ml PO BID PRN PRN Reason: Indigestion / Heartburn Stop: 04/30/17 09:23 Last Admin: 04/24/17 14:58 Dose: 30 ml Folic Acid (Folic Acid) 1 mg PO DAILY [facility] Last Admin: 04/26/17 09:33 Dose: 1 mg Multivitamins (Hexavitamin) 1 tab PO DAILY [facility] Last Admin: 04/26/17 09:33 Dose: 1 tab Nicotine (Nicoderm Cq) 1 patch TD DAILY [facility] Last Admin: 04/26/17 09:33 Dose: 1 patch Topiramate (Topamax) 50 mg PO DAILY [facility] Last Admin: 04/26/17 09:33 Dose: 50 mg - Labs Labs: 04/26/17 07:39 04/26/17 07:39 PT 12.0 SECONDS (9.7-12.2) 03/16/17 06:02 INR 1.1 03/16/17 06:02 APTT 33 SECONDS (21-34) 03/16/17 06:02 - Constitutional Appears: Well - Head Exam Head Exam: ATRAUMATIC, NORMAL INSPECTION, NORMOCEPHALIC - Eye Exam Eye Exam: EOMI, Normal appearance, PERRL Pupil Exam: NORMAL ACCOMODATION, PERRL - ENT Exam ENT Exam: Mucous Membranes Moist, Normal Exam - Neck Exam Neck Exam: Full ROM, Normal Inspection. absent: Lymphadenopathy - Respiratory Exam Respiratory Exam: Decreased Breath Sounds - Cardiovascular Exam Cardiovascular Exam: REGULAR RHYTHM, +S1, +S2 - GI/Abdominal Exam GI & Abdominal Exam: Soft, Diminished Bowel Sounds - Rectal Exam Rectal Exam: Deferred Assessment and Plan (1) Abdominal pain Status: Acute (2) Abrasion Status: Acute (3) Alcohol abuse with intoxication Status: Acute (4) Alcohol intoxication Status: Acute (5) Alcohol withdrawal Status: Acute (6) Alcohol withdrawal seizure Status: Acute (7) Bacteremia Status: Acute (8) Bilateral lower extremity edema Status: Acute (9) Breakthrough seizure Status: Acute (10) Cellulitis Status: Acute (11) Cellulitis of lower extremity Status: Acute (12) Chronic calcific pancreatitis Status: Acute (13) Dehydration Status: Acute (14) Diarrhea Status: Acute (15) Dressing change/suture removal Status: Acute (16) Drug dependence Status: Acute (17) Duodenitis Status: Acute (18) Electrolyte imbalance Status: Acute (19) Elevated alkaline phosphatase level Status: Acute (20) Facial laceration Status: Acute (21) Fever Status: Acute (22) Head trauma Status: Acute (23) Homelessness Status: Acute (24) Hyperphosphatemia Status: Acute (25) Hypokalemia Status: Acute (26) Hypokalemia with normal acid-base balance Status: Acute (27) Hypomagnesemia Status: Acute (28) Hypothermia Status: Acute (29) Low vitamin D level Status: Acute (30) Pancreatic mass Status: Acute (31) Pancreatitis, acute Status: Acute (32) Periapical abscess Status: Acute (33) Pneumonia Status: Acute (34) Pneumonia Status: Acute (35) Prophylactic measure Status: Acute (36) Respiratory failure with hypoxia and hypercapnia Status: Acute (37) Seizure Status: Acute (38) Skull fracture Status: Acute (39) Subarachnoid bleed Status: Acute (40) Subdural hematoma Status: Acute (41) Subdural hemorrhage Status: Acute (42) Thrombocythemia Status: Acute (43) Thrombocytopenia Status: Acute (44) Tobacco abuse Status: Acute (45) Tremors of nervous system Status: Acute (46) Vitamin D deficiency Status: Acute (47) Acute on chronic pancreatitis Status: Chronic (48) Alcohol abuse Status: Chronic (49) Alcohol abuse Status: Chronic (50) Alcohol dependence Status: Chronic (51) Anemia Status: Chronic (52) Anxiety and depression Status: Chronic (53) Aspiration into lower respiratory tract Status: Chronic (54) COPD (chronic obstructive pulmonary disease) Status: Chronic (55) Cholecystitis Status: Chronic (56) Chronic pancreatitis Status: Chronic (57) Depression Status: Chronic (58) Hypertension Status: Chronic (59) Peripheral motor neuropathy Status: Chronic (60) Empyema Status: Suspected (61) Seizure Status: Resolved - Assessment and Plan (Free Text) Plan: Follow-up neurologist Follow-up IV Continue Keppra Continue thiamine Continue folic acid Continue Pepcid
--- NOTE | 2017-04-26 17:34 | CP.PCM.PN ---
Subjective - Date & Time of Evaluation Date of Evaluation: 04/26/17 Time of Evaluation: 17:34 - Subjective Subjective: Patient seen and examined No events overnight Physical exam Vital signs noted General - no distress Neck - supple CVS - S1-S2 heard Lungs - bilateral rhonchi Abdomen - soft, ND Extremity - no edema Neuro - nonfocal Assessment/plan S/P acute respiratory failureS/P extubated COPD Pneumonia - s/p Abx Rx [facility] SDH Seizures History of alcohol abuse Thiamine/folate Bronchodilators Awaiting placement Continue supportive care DVT/GI prophylaxis Objective - Vital Signs/Intake and Output Vital Signs (last 24 hours): Temp Pulse Resp BP Pulse Ox 98.3 F 76 20 115/76 97 04/26/17 16:00 04/26/17 16:00 04/26/17 16:00 04/26/17 16:00 04/26/17 16:00 Intake and Output: 04/26/17 04/26/17 06:59 18:59 Intake Total 650 Balance 650 - Medications Medications: Current Medications Acetaminophen (Tylenol 325mg Tab) 650 mg PO Q6 PRN PRN Reason: Pain, severe (8-10) Last Admin: 04/26/17 11:34 Dose: 650 mg Al Hydrox/Mg Hydrox/Simethicone (Maalox 30 Ml) 30 ml PO BID PRN PRN Reason: Indigestion / Heartburn Stop: 04/30/17 09:23 Last Admin: 04/24/17 14:58 Dose: 30 ml Folic Acid (Folic Acid) 1 mg PO DAILY [facility] Last Admin: 04/26/17 09:33 Dose: 1 mg Multivitamins (Hexavitamin) 1 tab PO DAILY [facility] Last Admin: 04/26/17 09:33 Dose: 1 tab Nicotine (Nicoderm Cq) 1 patch TD DAILY [facility] Last Admin: 04/26/17 09:33 Dose: 1 patch Topiramate (Topamax) 50 mg PO DAILY [facility] Last Admin: 04/26/17 09:33 Dose: 50 mg - Labs Labs: 04/26/17 07:39 04/26/17 07:39 PT 12.0 SECONDS (9.7-12.2) 03/16/17 06:02 INR 1.1 03/16/17 06:02 APTT 33 SECONDS (21-34) 03/16/17 06:02
[2017-04-27 07:26] LABS: BASO % 1.1 % (0.0-2.0); EOS # 0.4 K/uL (0.0-0.7); EOS % 9.8 % (0.0-4.0); HEMATOCRIT 39.3 % (35.0-51.0); LYMPH # 1.6 K/uL (1.0-4.3); LYMPH % 37.3 % (20.0-40.0); MEAN CELL VOLUME 80.6 fL (80.0-94.0); MEAN CORPUSCULAR HEMOGLOBIN 26.1 pg (27.0-31.0); MEAN CORPUSCULAR HGB CONC 32.4 g/dL (33.0-37.0); MEAN PLATELET VOLUME 8.3 fL (7.2-11.7); MONO # 0.3 K/uL (0.0-0.8); MONO % 6.7 % (0.0-10.0); NRBC % 0.1 % (0.0-2.0); RED CELL DISTRIBUTION WIDTH 18.4 % (11.5-14.5); WHITE BLOOD COUNT 4.2 K/uL (4.8-10.8)
[2017-04-27 07:42] LABS: CHLORIDE 101 mmol/L (98-107); SODIUM 137 mmol/L (132-148)
[2017-04-27 07:43] LABS: POTASSIUM 3.7 mmol/L (3.6-5.2)
[2017-04-27 07:45] LABS: ALB/GLOB RATIO 1.1 (1.0-2.1); ALKALINE PHOSPHATASE 90 U/L (38-126); ALT/SGPT 57 U/L (21-72); AST/SGOT 50 U/L (17-59); BILIRUBIN,TOTAL 0.6 mg/dL (0.2-1.3); BLOOD UREA NITROGEN 10 mg/dL (9-20); CARBON DIOXIDE 24 mmol/L (22-30); GFR AFRICAN-AMERICAN > 60; GLUCOSE,RANDOM 98 mg/dL (75-110); TOTAL PROTEIN 8.2 g/dL (6.3-8.3)
[2017-04-27 07:46] LABS: CALCIUM 9.9 mg/dl (8.6-10.4)
--- NOTE | 2017-04-27 10:52 | CARD ---
APPROVED REPORT EKG Measurement Heart [id number] SD [id number] <Conclusion> Sinus rhythm with 1st degree AV block Otherwise normal ECG
[2017-04-27] MEDS: Multiple Vitamins Tab PO SCH (11:31)
--- NOTE | 2017-04-27 16:01 | CP.PCM.PN ---
Subjective - Date & Time of Evaluation Date of Evaluation: 04/27/17 Time of Evaluation: 09:40 - Subjective Subjective: PGY2 Medicine Note- Dr. Reed's Service Patient seen and examined. Patient with complaint of abdominal pain that is diffuse. Patient denies nausea and vomiting. Patient states he is eating well. Objective - Vital Signs/Intake and Output Vital Signs (last 24 hours): Temp Pulse Resp BP Pulse Ox 98.2 F 71 20 117/77 98 04/27/17 08:00 04/27/17 08:00 04/27/17 08:00 04/27/17 08:00 04/27/17 08:00 Intake and Output: 04/27/17 04/27/17 06:59 18:59 Intake Total 710 300 Balance 710 300 - Medications Medications: Current Medications Acetaminophen (Tylenol 325mg Tab) 650 mg PO Q6 PRN PRN Reason: Pain, severe (8-10) Last Admin: 04/27/17 13:10 Dose: 650 mg Al Hydrox/Mg Hydrox/Simethicone (Maalox 30 Ml) 30 ml PO BID PRN PRN Reason: Indigestion / Heartburn Stop: 04/30/17 09:23 Last Admin: 04/24/17 14:58 Dose: 30 ml Folic Acid (Folic Acid) 1 mg PO DAILY [facility] Last Admin: 04/27/17 11:31 Dose: 1 mg Multivitamins (Hexavitamin) 1 tab PO DAILY [facility] Last Admin: 04/27/17 11:31 Dose: 1 tab Nicotine (Nicoderm Cq) 1 patch TD DAILY [facility] Last Admin: 04/27/17 11:31 Dose: 1 patch Thiamine HCl (Vitamin B1 Tab) 100 mg PO DAILY [facility] Last Admin: 04/27/17 11:31 Dose: 100 mg Topiramate (Topamax) 50 mg PO DAILY [facility] Last Admin: 04/27/17 11:31 Dose: 50 mg - Labs Labs: 04/27/17 07:08 04/27/17 07:08 PT 12.0 SECONDS (9.7-12.2) 03/16/17 06:02 INR 1.1 03/16/17 06:02 APTT 33 SECONDS (21-34) 03/16/17 06:02 - Constitutional Appears: Non-toxic, No Acute Distress - Head Exam Head Exam: ATRAUMATIC - Eye Exam Eye Exam: EOMI - ENT Exam ENT Exam: Mucous Membranes Moist - Respiratory Exam Respiratory Exam: Clear to Ausculation Bilateral, NORMAL BREATHING PATTERN - Cardiovascular Exam Cardiovascular Exam: +S1, +S2 - GI/Abdominal Exam GI & Abdominal Exam: Soft, Normal Bowel Sounds - Extremities Exam Extremities Exam: Normal Inspection. absent: Pedal Edema - Neurological Exam Neurological Exam: Alert, Awake, Oriented x3 - Psychiatric Exam Psychiatric exam: Normal Affect - Skin Skin Exam: Warm Assessment and Plan - Assessment and Plan (Free Text) Assessment: Subdural hematoma - Consult Neuro- Dr. Ordaz - Topamax 50mg PO daily, Tylenol 650mg PO Q6h PRN for headaches - partially help his chronic headache. 04/20: Head CT - resolving hematoma (please see full report) 04/19: F/U repeat Head CT as patient's headaches have been worsening 04/17: Patient is still an unsafe discharge because of his inability to ambulate safely and his confusion. 04/16: pending placement, unsafe discharge due to patients confusion and inability to ambulate. Patient is a unsafe discharge because he is unable to ambulate without any assistance from someone. He is very unsteady even with a walker and requires assistance for balance. Pending placement. Status: Acute Chest Pain FAITH negative CXR - right lung base consolidative markings, hilar prominence - no clinical symptoms Status: Acute Chronic Pancreatitis Assessment & Plan: Likely secondary to alcoholism continue Folic acid, multivitamin, and thiamine. Status: Chronic Prophylactic measure Assessment & Plan: Heparin 5000U SC Q12 - C/I due to subdural bleed. Pepcid 20mg PO BID Management per Dr. Derek FRITZ Planning
--- NOTE | 2017-04-27 17:25 | CP.PCM.PN ---
Subjective - Date & Time of Evaluation Date of Evaluation: 04/27/17 Time of Evaluation: 07:00 - Subjective Subjective: clinically same Objective - Vital Signs/Intake and Output Vital Signs (last 24 hours): Temp Pulse Resp BP Pulse Ox 98.2 F 80 20 133/78 95 04/27/17 15:00 04/27/17 15:00 04/27/17 15:00 04/27/17 15:00 04/27/17 15:00 Intake and Output: 04/27/17 04/27/17 06:59 18:59 Intake Total 710 300 Balance 710 300 - Medications Medications: Current Medications Acetaminophen (Tylenol 325mg Tab) 650 mg PO Q6 PRN PRN Reason: Pain, severe (8-10) Last Admin: 04/27/17 13:10 Dose: 650 mg Al Hydrox/Mg Hydrox/Simethicone (Maalox 30 Ml) 30 ml PO BID PRN PRN Reason: Indigestion / Heartburn Stop: 04/30/17 09:23 Last Admin: 04/24/17 14:58 Dose: 30 ml Folic Acid (Folic Acid) 1 mg PO DAILY [facility] Last Admin: 04/27/17 11:31 Dose: 1 mg Multivitamins (Hexavitamin) 1 tab PO DAILY [facility] Last Admin: 04/27/17 11:31 Dose: 1 tab Nicotine (Nicoderm Cq) 1 patch TD DAILY [facility] Last Admin: 04/27/17 11:31 Dose: 1 patch Thiamine HCl (Vitamin B1 Tab) 100 mg PO DAILY [facility] Last Admin: 04/27/17 11:31 Dose: 100 mg Topiramate (Topamax) 50 mg PO DAILY [facility] Last Admin: 04/27/17 11:31 Dose: 50 mg - Labs Labs: 04/27/17 07:08 04/27/17 07:08 PT 12.0 SECONDS (9.7-12.2) 03/16/17 06:02 INR 1.1 03/16/17 06:02 APTT 33 SECONDS (21-34) 03/16/17 06:02 - Constitutional Appears: Well - Head Exam Head Exam: ATRAUMATIC, NORMAL INSPECTION, NORMOCEPHALIC - Eye Exam Eye Exam: EOMI, Normal appearance, PERRL Pupil Exam: NORMAL ACCOMODATION, PERRL - ENT Exam ENT Exam: Mucous Membranes Moist, Normal Exam - Neck Exam Neck Exam: Full ROM, Normal Inspection. absent: Lymphadenopathy - Respiratory Exam Respiratory Exam: Decreased Breath Sounds - Cardiovascular Exam Cardiovascular Exam: REGULAR RHYTHM, +S1, +S2 - GI/Abdominal Exam GI & Abdominal Exam: Soft, Diminished Bowel Sounds - Rectal Exam Rectal Exam: Deferred Assessment and Plan (1) Abdominal pain Status: Acute (2) Abrasion Status: Acute (3) Alcohol abuse with intoxication Status: Acute (4) Alcohol intoxication Status: Acute (5) Alcohol withdrawal Status: Acute (6) Alcohol withdrawal seizure Status: Acute (7) Bacteremia Status: Acute (8) Bilateral lower extremity edema Status: Acute (9) Breakthrough seizure Status: Acute (10) Cellulitis Status: Acute (11) Cellulitis of lower extremity Status: Acute (12) Chronic calcific pancreatitis Status: Acute (13) Dehydration Status: Acute (14) Diarrhea Status: Acute (15) Dressing change/suture removal Status: Acute (16) Drug dependence Status: Acute (17) Duodenitis Status: Acute (18) Electrolyte imbalance Status: Acute (19) Elevated alkaline phosphatase level Status: Acute (20) Facial laceration Status: Acute (21) Fever Status: Acute (22) Head trauma Status: Acute (23) Homelessness Status: Acute (24) Hyperphosphatemia Status: Acute (25) Hypokalemia Status: Acute (26) Hypokalemia with normal acid-base balance Status: Acute (27) Hypomagnesemia Status: Acute (28) Hypothermia Status: Acute (29) Low vitamin D level Status: Acute (30) Pancreatic mass Status: Acute (31) Pancreatitis, acute Status: Acute (32) Periapical abscess Status: Acute (33) Pneumonia Status: Acute (34) Pneumonia Status: Acute (35) Prophylactic measure Status: Acute (36) Respiratory failure with hypoxia and hypercapnia Status: Acute (37) Seizure Status: Acute (38) Skull fracture Status: Acute (39) Subarachnoid bleed Status: Acute (40) Subdural hematoma Status: Acute (41) Subdural hemorrhage Status: Acute (42) Thrombocythemia Status: Acute (43) Thrombocytopenia Status: Acute (44) Tobacco abuse Status: Acute (45) Tremors of nervous system Status: Acute (46) Vitamin D deficiency Status: Acute (47) Acute on chronic pancreatitis Status: Chronic (48) Alcohol abuse Status: Chronic (49) Alcohol abuse Status: Chronic (50) Alcohol dependence Status: Chronic (51) Anemia Status: Chronic (52) Anxiety and depression Status: Chronic (53) Aspiration into lower respiratory tract Status: Chronic (54) COPD (chronic obstructive pulmonary disease) Status: Chronic (55) Cholecystitis Status: Chronic (56) Chronic pancreatitis Status: Chronic (57) Depression Status: Chronic (58) Hypertension Status: Chronic (59) Peripheral motor neuropathy Status: Chronic (60) Empyema Status: Suspected (61) Seizure Status: Resolved - Assessment and Plan (Free Text) Plan: Follow-up neurologist Follow-up IV Continue Topamax Continue Keppra Continue thiamine Continue folic acid Continue Pepcid
[2017-04-28 07:32] LABS: CHLORIDE 106 mmol/L (98-107); POTASSIUM 3.6 mmol/L (3.6-5.2); SODIUM 139 mmol/L (132-148)
[2017-04-28 07:34] LABS: BILIRUBIN,TOTAL 0.5 mg/dL (0.2-1.3); CARBON DIOXIDE 19 mmol/L (22-30); GFR AFRICAN-AMERICAN > 60
[2017-04-28 07:35] LABS: ALB/GLOB RATIO 1.3 (1.0-2.1); ALKALINE PHOSPHATASE 74 U/L (38-126); ALT/SGPT 49 U/L (21-72); AST/SGOT 31 U/L (17-59); BLOOD UREA NITROGEN 10 mg/dL (9-20); GLUCOSE,RANDOM 109 mg/dL (75-110); TOTAL PROTEIN 7.3 g/dL (6.3-8.3)
[2017-04-28 07:35] LABS: BASO % 0.8 % (0.0-2.0); EOS # 0.4 K/uL (0.0-0.7); EOS % 8.7 % (0.0-4.0); HEMATOCRIT 36.3 % (35.0-51.0); LYMPH # 1.6 K/uL (1.0-4.3); LYMPH % 32.6 % (20.0-40.0); MEAN CELL VOLUME 80.8 fL (80.0-94.0); MEAN CORPUSCULAR HEMOGLOBIN 25.9 pg (27.0-31.0); MEAN PLATELET VOLUME 8.6 fL (7.2-11.7); MONO # 0.4 K/uL (0.0-0.8); MONO % 8.5 % (0.0-10.0); RED CELL DISTRIBUTION WIDTH 18.7 % (11.5-14.5); WHITE BLOOD COUNT 4.8 K/uL (4.8-10.8)
[2017-04-28] MEDS: Multiple Vitamins Tab PO SCH (09:31)
--- NOTE | 2017-04-28 09:51 | CP.PCM.PN ---
Subjective - Date & Time of Evaluation Date of Evaluation: 04/28/17 Time of Evaluation: 07:00 - Subjective Subjective: clinically same Objective - Vital Signs/Intake and Output Vital Signs (last 24 hours): Temp Pulse Resp BP Pulse Ox 98.4 F 74 20 122/74 96 04/28/17 08:04 04/28/17 08:04 04/28/17 08:04 04/28/17 08:04 04/28/17 08:04 Intake and Output: 04/28/17 04/28/17 06:59 18:59 Intake Total 300 Output Total 400 Balance -100 - Medications Medications: Current Medications Acetaminophen (Tylenol 325mg Tab) 650 mg PO Q6 PRN PRN Reason: Pain, severe (8-10) Last Admin: 04/28/17 08:35 Dose: 650 mg Al Hydrox/Mg Hydrox/Simethicone (Maalox 30 Ml) 30 ml PO BID PRN PRN Reason: Indigestion / Heartburn Stop: 04/30/17 09:23 Last Admin: 04/24/17 14:58 Dose: 30 ml Folic Acid (Folic Acid) 1 mg PO DAILY [facility] Last Admin: 04/28/17 09:31 Dose: 1 mg Multivitamins (Hexavitamin) 1 tab PO DAILY [facility] Last Admin: 04/28/17 09:31 Dose: 1 tab Nicotine (Nicoderm Cq) 1 patch TD DAILY [facility] Last Admin: 04/27/17 11:31 Dose: 1 patch Thiamine HCl (Vitamin B1 Tab) 100 mg PO DAILY [facility] Last Admin: 04/28/17 09:31 Dose: 100 mg Topiramate (Topamax) 50 mg PO DAILY [facility] Last Admin: 04/27/17 11:31 Dose: 50 mg - Labs Labs: 04/28/17 07:15 04/28/17 07:11 PT 12.0 SECONDS (9.7-12.2) 03/16/17 06:02 INR 1.1 03/16/17 06:02 APTT 33 SECONDS (21-34) 03/16/17 06:02 - Constitutional Appears: Well - Head Exam Head Exam: ATRAUMATIC, NORMAL INSPECTION, NORMOCEPHALIC - Eye Exam Eye Exam: EOMI, Normal appearance, PERRL Pupil Exam: NORMAL ACCOMODATION, PERRL - ENT Exam ENT Exam: Mucous Membranes Moist, Normal Exam - Neck Exam Neck Exam: Full ROM, Normal Inspection. absent: Lymphadenopathy - Respiratory Exam Respiratory Exam: Decreased Breath Sounds - Cardiovascular Exam Cardiovascular Exam: REGULAR RHYTHM, +S1, +S2 - GI/Abdominal Exam GI & Abdominal Exam: Soft, Diminished Bowel Sounds - Rectal Exam Rectal Exam: Deferred Assessment and Plan (1) Abdominal pain Status: Acute (2) Abrasion Status: Acute (3) Alcohol abuse with intoxication Status: Acute (4) Alcohol intoxication Status: Acute (5) Alcohol withdrawal Status: Acute (6) Alcohol withdrawal seizure Status: Acute (7) Bacteremia Status: Acute (8) Bilateral lower extremity edema Status: Acute (9) Breakthrough seizure Status: Acute (10) Cellulitis Status: Acute (11) Cellulitis of lower extremity Status: Acute (12) Chronic calcific pancreatitis Status: Acute (13) Dehydration Status: Acute (14) Diarrhea Status: Acute (15) Dressing change/suture removal Status: Acute (16) Drug dependence Status: Acute (17) Duodenitis Status: Acute (18) Electrolyte imbalance Status: Acute (19) Elevated alkaline phosphatase level Status: Acute (20) Facial laceration Status: Acute (21) Fever Status: Acute (22) Head trauma Status: Acute (23) Homelessness Status: Acute (24) Hyperphosphatemia Status: Acute (25) Hypokalemia Status: Acute (26) Hypokalemia with normal acid-base balance Status: Acute (27) Hypomagnesemia Status: Acute (28) Hypothermia Status: Acute (29) Low vitamin D level Status: Acute (30) Pancreatic mass Status: Acute (31) Pancreatitis, acute Status: Acute (32) Periapical abscess Status: Acute (33) Pneumonia Status: Acute (34) Pneumonia Status: Acute (35) Prophylactic measure Status: Acute (36) Respiratory failure with hypoxia and hypercapnia Status: Acute (37) Seizure Status: Acute (38) Skull fracture Status: Acute (39) Subarachnoid bleed Status: Acute (40) Subdural hematoma Status: Acute (41) Subdural hemorrhage Status: Acute (42) Thrombocythemia Status: Acute (43) Thrombocytopenia Status: Acute (44) Tobacco abuse Status: Acute (45) Tremors of nervous system Status: Acute (46) Vitamin D deficiency Status: Acute (47) Acute on chronic pancreatitis Status: Chronic (48) Alcohol abuse Status: Chronic (49) Alcohol abuse Status: Chronic (50) Alcohol dependence Status: Chronic (51) Anemia Status: Chronic (52) Anxiety and depression Status: Chronic (53) Aspiration into lower respiratory tract Status: Chronic (54) COPD (chronic obstructive pulmonary disease) Status: Chronic (55) Cholecystitis Status: Chronic (56) Chronic pancreatitis Status: Chronic (57) Depression Status: Chronic (58) Hypertension Status: Chronic (59) Peripheral motor neuropathy Status: Chronic (60) Empyema Status: Suspected (61) Seizure Status: Resolved - Assessment and Plan (Free Text) Plan: Follow-up neurologist Follow-up IV Continue Topamax Continue Keppra Continue thiamine Continue folic acid Continue Pepcid
[2017-04-29] MEDS: Multiple Vitamins Tab PO SCH (09:25)
--- NOTE | 2017-04-29 14:49 | CP.PCM.PN ---
Subjective - Date & Time of Evaluation Date of Evaluation: 04/29/17 Time of Evaluation: 08:00 - Subjective Subjective: no compalints still cant walk much Objective - Vital Signs/Intake and Output Vital Signs (last 24 hours): Temp Pulse Resp BP Pulse Ox 98.0 F 68 20 120/78 98 04/29/17 07:43 04/29/17 07:43 04/29/17 07:43 04/29/17 07:43 04/29/17 07:43 Intake and Output: 04/29/17 04/29/17 06:59 18:59 Intake Total 500 Balance 500 - Medications Medications: Current Medications Acetaminophen (Tylenol 325mg Tab) 650 mg PO Q6 PRN PRN Reason: Pain, severe (8-10) Last Admin: 04/29/17 14:40 Dose: 650 mg Al Hydrox/Mg Hydrox/Simethicone (Maalox 30 Ml) 30 ml PO BID PRN PRN Reason: Indigestion / Heartburn Stop: 04/30/17 09:23 Last Admin: 04/24/17 14:58 Dose: 30 ml Folic Acid (Folic Acid) 1 mg PO DAILY [facility] Last Admin: 04/29/17 09:26 Dose: 1 mg Multivitamins (Hexavitamin) 1 tab PO DAILY [facility] Last Admin: 04/29/17 09:25 Dose: 1 tab Nicotine (Nicoderm Cq) 1 patch TD DAILY [facility] Last Admin: 04/29/17 09:26 Dose: 1 patch Thiamine HCl (Vitamin B1 Tab) 100 mg PO DAILY [facility] Last Admin: 04/29/17 09:26 Dose: 100 mg Topiramate (Topamax) 50 mg PO DAILY [facility] Last Admin: 04/29/17 09:26 Dose: 50 mg - Labs Labs: 04/28/17 07:15 04/28/17 07:11 PT 12.0 SECONDS (9.7-12.2) 03/16/17 06:02 INR 1.1 03/16/17 06:02 APTT 33 SECONDS (21-34) 03/16/17 06:02 - Constitutional Appears: Well - Head Exam Head Exam: ATRAUMATIC, NORMAL INSPECTION, NORMOCEPHALIC - Eye Exam Eye Exam: EOMI, Normal appearance, PERRL Pupil Exam: NORMAL ACCOMODATION, PERRL - ENT Exam ENT Exam: Mucous Membranes Moist, Normal Exam - Neck Exam Neck Exam: Full ROM, Normal Inspection. absent: Lymphadenopathy - Respiratory Exam Respiratory Exam: Decreased Breath Sounds - Cardiovascular Exam Cardiovascular Exam: REGULAR RHYTHM, +S1, +S2 - GI/Abdominal Exam GI & Abdominal Exam: Soft, Diminished Bowel Sounds - Rectal Exam Rectal Exam: Deferred Assessment and Plan (1) Pneumonia Status: Acute (2) Skull fracture Status: Acute (3) Subarachnoid bleed Status: Acute (4) Subdural hematoma Status: Acute (5) Alcohol abuse Status: Chronic (6) Seizure Status: Resolved (7) Abdominal pain Status: Acute (8) Abrasion Status: Acute (9) Alcohol abuse with intoxication Status: Acute (10) Alcohol intoxication Status: Acute (11) Alcohol withdrawal Status: Acute (12) Alcohol withdrawal seizure Status: Acute (13) Bacteremia Status: Acute (14) Bilateral lower extremity edema Status: Acute (15) Breakthrough seizure Status: Acute (16) Cellulitis Status: Acute (17) Cellulitis of lower extremity Status: Acute (18) Chronic calcific pancreatitis Status: Acute (19) Dehydration Status: Acute (20) Diarrhea Status: Acute (21) Dressing change/suture removal Status: Acute (22) Drug dependence Status: Acute (23) Duodenitis Status: Acute (24) Electrolyte imbalance Status: Acute (25) Elevated alkaline phosphatase level Status: Acute (26) Facial laceration Status: Acute (27) Fever Status: Acute (28) Head trauma Status: Acute (29) Homelessness Status: Acute (30) Hyperphosphatemia Status: Acute (31) Hypokalemia Status: Acute (32) Hypokalemia with normal acid-base balance Status: Acute (33) Hypomagnesemia Status: Acute (34) Hypothermia Status: Acute (35) Low vitamin D level Status: Acute (36) Pancreatic mass Status: Acute (37) Pancreatitis, acute Status: Acute (38) Periapical abscess Status: Acute (39) Pneumonia Status: Acute (40) Prophylactic measure Status: Acute (41) Respiratory failure with hypoxia and hypercapnia Status: Acute (42) Seizure Status: Acute (43) Subdural hemorrhage Status: Acute (44) Thrombocythemia Status: Acute (45) Thrombocytopenia Status: Acute (46) Tobacco abuse Status: Acute (47) Tremors of nervous system Status: Acute (48) Vitamin D deficiency Status: Acute (49) Acute on chronic pancreatitis Status: Chronic (50) Alcohol abuse Status: Chronic (51) Alcohol dependence Status: Chronic (52) Anemia Status: Chronic (53) Anxiety and depression Status: Chronic (54) Aspiration into lower respiratory tract Status: Chronic (55) COPD (chronic obstructive pulmonary disease) Status: Chronic (56) Cholecystitis Status: Chronic (57) Chronic pancreatitis Status: Chronic (58) Depression Status: Chronic (59) Hypertension Status: Chronic (60) Peripheral motor neuropathy Status: Chronic (61) Empyema Status: Suspected - Assessment and Plan (Free Text) Plan: awaiting julianna labs seen encourage po feeding insuraned denied placement although pt cant walk much ithout suppoer and very high risk for fall
--- NOTE | 2017-04-29 15:04 | CP.PCM.PN ---
Subjective - Date & Time of Evaluation Date of Evaluation: 04/29/17 Time of Evaluation: 15:04 - Subjective Subjective: Patient seen and examined No events overnight Physical exam Vital signs noted General - no distress Neck - supple CVS - S1-S2 heard Lungs - bilateral rhonchi Abdomen - soft, ND Extremity - no edema Neuro - nonfocal Assessment/plan S/P acute respiratory failureS/P extubated COPD Pneumonia - s/p Abx Rx [facility] SDH Seizures History of alcohol abuse Thiamine/folate Bronchodilators Awaiting placement Continue supportive care DVT/GI prophylaxis Objective - Vital Signs/Intake and Output Vital Signs (last 24 hours): Temp Pulse Resp BP Pulse Ox 98.0 F 68 20 120/78 98 04/29/17 07:43 04/29/17 07:43 04/29/17 07:43 04/29/17 07:43 04/29/17 07:43 Intake and Output: 04/29/17 04/29/17 06:59 18:59 Intake Total 500 Balance 500 - Medications Medications: Current Medications Acetaminophen (Tylenol 325mg Tab) 650 mg PO Q6 PRN PRN Reason: Pain, severe (8-10) Last Admin: 04/29/17 14:40 Dose: 650 mg Al Hydrox/Mg Hydrox/Simethicone (Maalox 30 Ml) 30 ml PO BID PRN PRN Reason: Indigestion / Heartburn Stop: 04/30/17 09:23 Last Admin: 04/24/17 14:58 Dose: 30 ml Folic Acid (Folic Acid) 1 mg PO DAILY [facility] Last Admin: 04/29/17 09:26 Dose: 1 mg Multivitamins (Hexavitamin) 1 tab PO DAILY [facility] Last Admin: 04/29/17 09:25 Dose: 1 tab Nicotine (Nicoderm Cq) 1 patch TD DAILY [facility] Last Admin: 04/29/17 09:26 Dose: 1 patch Thiamine HCl (Vitamin B1 Tab) 100 mg PO DAILY [facility] Last Admin: 04/29/17 09:26 Dose: 100 mg Topiramate (Topamax) 50 mg PO DAILY [facility] Last Admin: 04/29/17 09:26 Dose: 50 mg - Labs Labs: 04/28/17 07:15 04/28/17 07:11 PT 12.0 SECONDS (9.7-12.2) 03/16/17 06:02 INR 1.1 03/16/17 06:02 APTT 33 SECONDS (21-34) 03/16/17 06:02
--- NOTE | 2017-04-30 09:07 | CP.PCM.PN ---
Subjective - Date & Time of Evaluation Date of Evaluation: 04/30/17 Time of Evaluation: 07:00 - Subjective Subjective: clinically same Objective - Vital Signs/Intake and Output Vital Signs (last 24 hours): Temp Pulse Resp BP Pulse Ox 98.5 F 64 20 129/79 97 04/30/17 08:00 04/30/17 08:00 04/30/17 08:00 04/30/17 08:00 04/30/17 08:00 Intake and Output: 04/30/17 04/30/17 06:59 18:59 Intake Total 250 Balance 250 - Medications Medications: Current Medications Acetaminophen (Tylenol 325mg Tab) 650 mg PO Q6 PRN PRN Reason: Pain, severe (8-10) Last Admin: 04/29/17 21:01 Dose: 650 mg Al Hydrox/Mg Hydrox/Simethicone (Maalox 30 Ml) 30 ml PO BID PRN PRN Reason: Indigestion / Heartburn Stop: 04/30/17 09:23 Last Admin: 04/24/17 14:58 Dose: 30 ml Folic Acid (Folic Acid) 1 mg PO DAILY [facility] Last Admin: 04/29/17 09:26 Dose: 1 mg Multivitamins (Hexavitamin) 1 tab PO DAILY [facility] Last Admin: 04/29/17 09:25 Dose: 1 tab Nicotine (Nicoderm Cq) 1 patch TD DAILY [facility] Last Admin: 04/29/17 09:26 Dose: 1 patch Thiamine HCl (Vitamin B1 Tab) 100 mg PO DAILY [facility] Last Admin: 04/29/17 09:26 Dose: 100 mg Topiramate (Topamax) 50 mg PO DAILY [facility] Last Admin: 04/29/17 09:26 Dose: 50 mg - Labs Labs: 04/28/17 07:15 04/28/17 07:11 PT 12.0 SECONDS (9.7-12.2) 03/16/17 06:02 INR 1.1 03/16/17 06:02 APTT 33 SECONDS (21-34) 03/16/17 06:02 - Constitutional Appears: Well - Head Exam Head Exam: ATRAUMATIC, NORMAL INSPECTION, NORMOCEPHALIC - Eye Exam Eye Exam: EOMI, Normal appearance, PERRL Pupil Exam: NORMAL ACCOMODATION, PERRL - ENT Exam ENT Exam: Mucous Membranes Moist, Normal Exam - Neck Exam Neck Exam: Full ROM, Normal Inspection. absent: Lymphadenopathy - Respiratory Exam Respiratory Exam: Decreased Breath Sounds - Cardiovascular Exam Cardiovascular Exam: REGULAR RHYTHM, +S1, +S2 - GI/Abdominal Exam GI & Abdominal Exam: Soft, Diminished Bowel Sounds - Rectal Exam Rectal Exam: Deferred Assessment and Plan (1) Pneumonia Status: Acute (2) Skull fracture Status: Acute (3) Subarachnoid bleed Status: Acute (4) Subdural hematoma Status: Acute (5) Alcohol abuse Status: Chronic (6) Seizure Status: Resolved (7) Abdominal pain Status: Acute (8) Abrasion Status: Acute (9) Alcohol abuse with intoxication Status: Acute (10) Alcohol intoxication Status: Acute (11) Alcohol withdrawal Status: Acute (12) Alcohol withdrawal seizure Status: Acute (13) Bacteremia Status: Acute (14) Bilateral lower extremity edema Status: Acute (15) Breakthrough seizure Status: Acute (16) Cellulitis Status: Acute (17) Cellulitis of lower extremity Status: Acute (18) Chronic calcific pancreatitis Status: Acute (19) Dehydration Status: Acute (20) Diarrhea Status: Acute (21) Dressing change/suture removal Status: Acute (22) Drug dependence Status: Acute (23) Duodenitis Status: Acute (24) Electrolyte imbalance Status: Acute (25) Elevated alkaline phosphatase level Status: Acute (26) Facial laceration Status: Acute (27) Fever Status: Acute (28) Head trauma Status: Acute (29) Homelessness Status: Acute (30) Hyperphosphatemia Status: Acute (31) Hypokalemia Status: Acute (32) Hypokalemia with normal acid-base balance Status: Acute (33) Hypomagnesemia Status: Acute (34) Hypothermia Status: Acute (35) Low vitamin D level Status: Acute (36) Pancreatic mass Status: Acute (37) Pancreatitis, acute Status: Acute (38) Periapical abscess Status: Acute (39) Pneumonia Status: Acute (40) Prophylactic measure Status: Acute (41) Respiratory failure with hypoxia and hypercapnia Status: Acute (42) Seizure Status: Acute (43) Subdural hemorrhage Status: Acute (44) Thrombocythemia Status: Acute (45) Thrombocytopenia Status: Acute (46) Tobacco abuse Status: Acute (47) Tremors of nervous system Status: Acute (48) Vitamin D deficiency Status: Acute (49) Acute on chronic pancreatitis Status: Chronic (50) Alcohol abuse Status: Chronic (51) Alcohol dependence Status: Chronic (52) Anemia Status: Chronic (53) Anxiety and depression Status: Chronic (54) Aspiration into lower respiratory tract Status: Chronic (55) COPD (chronic obstructive pulmonary disease) Status: Chronic (56) Cholecystitis Status: Chronic (57) Chronic pancreatitis Status: Chronic (58) Depression Status: Chronic (59) Hypertension Status: Chronic (60) Peripheral motor neuropathy Status: Chronic (61) Empyema Status: Suspected - Assessment and Plan (Free Text) Plan: Follow-up neurologist Follow-up IV Continue Keppra Continue thiamine Continue folic acid Continue Pepcid
[2017-04-30] MEDS: Multiple Vitamins Tab PO SCH (10:15)
--- NOTE | 2017-04-30 10:20 | CP.PCM.PN ---
<Immanuel Marc - Last Filed: 04/30/17 10:20> Subjective - Date & Time of Evaluation Date of Evaluation: 04/30/17 Time of Evaluation: 10:20 Objective - Vital Signs/Intake and Output Vital Signs (last 24 hours): Temp Pulse Resp BP Pulse Ox 98.5 F 64 20 129/79 97 04/30/17 08:00 04/30/17 08:00 04/30/17 08:00 04/30/17 08:00 04/30/17 08:00 Intake and Output: 04/30/17 04/30/17 06:59 18:59 Intake Total 250 Balance 250 - Medications Medications: Current Medications Acetaminophen (Tylenol 325mg Tab) 650 mg PO Q6 PRN PRN Reason: Pain, severe (8-10) Last Admin: 04/30/17 10:14 Dose: 650 mg Folic Acid (Folic Acid) 1 mg PO DAILY [facility] Last Admin: 04/30/17 10:15 Dose: 1 mg Multivitamins (Hexavitamin) 1 tab PO DAILY [facility] Last Admin: 04/30/17 10:15 Dose: 1 tab Nicotine (Nicoderm Cq) 1 patch TD DAILY [facility] Last Admin: 04/30/17 10:16 Dose: 1 patch Thiamine HCl (Vitamin B1 Tab) 100 mg PO DAILY [facility] Last Admin: 04/30/17 10:15 Dose: 100 mg Topiramate (Topamax) 50 mg PO DAILY [facility] Last Admin: 04/30/17 10:15 Dose: 50 mg - Labs Labs: 04/28/17 07:15 04/28/17 07:11 PT 12.0 SECONDS (9.7-12.2) 03/16/17 06:02 INR 1.1 03/16/17 06:02 APTT 33 SECONDS (21-34) 03/16/17 06:02 <Suhas Landeros - Last Filed: 05/01/17 09:33> Subjective - Subjective Subjective: Medicine Note- Dr. Reed's service Patient was seen and examined at bedside. Patient reports no acute complaints at this time. He says he doesnt really have any issues bothering him much. He still has a chronic headache, and he states that sometimes, he gets intermittent mild abdominal pain, but it improves when he eats. Objective - Vital Signs/Intake and Output Vital Signs (last 24 hours): Temp Pulse Resp BP Pulse Ox 97.7 F 76 20 127/73 97 05/01/17 08:00 05/01/17 08:00 05/01/17 08:00 05/01/17 08:00 05/01/17 08:00 Intake and Output: 05/01/17 05/01/17 06:59 18:59 Intake Total 900 Balance 900 - Medications Medications: Current Medications Acetaminophen (Tylenol 325mg Tab) 650 mg PO Q6 PRN PRN Reason: Pain, severe (8-10) Last Admin: 05/01/17 04:10 Dose: 650 mg Folic Acid (Folic Acid) 1 mg PO DAILY [facility] Last Admin: 04/30/17 10:15 Dose: 1 mg Multivitamins (Hexavitamin) 1 tab PO DAILY [facility] Last Admin: 04/30/17 10:15 Dose: 1 tab Nicotine (Nicoderm Cq) 1 patch TD DAILY [facility] Last Admin: 04/30/17 10:16 Dose: 1 patch Thiamine HCl (Vitamin B1 Tab) 100 mg PO DAILY [facility] Last Admin: 04/30/17 10:15 Dose: 100 mg Topiramate (Topamax) 50 mg PO DAILY [facility] Last Admin: 04/30/17 10:15 Dose: 50 mg - Labs Labs: 05/01/17 07:25 05/01/17 07:25 PT 12.0 SECONDS (9.7-12.2) 03/16/17 06:02 INR 1.1 03/16/17 06:02 APTT 33 SECONDS (21-34) 03/16/17 06:02 - Constitutional Appears: Non-toxic, No Acute Distress - Head Exam Head Exam: ATRAUMATIC, NORMAL INSPECTION, NORMOCEPHALIC - Eye Exam Pupil Exam: NORMAL ACCOMODATION - ENT Exam ENT Exam: Mucous Membranes Moist - Respiratory Exam Respiratory Exam: Clear to Ausculation Bilateral, NORMAL BREATHING PATTERN. absent: Prolonged Expiratory Phase, Rales, Rhonchi, Wheezes - Cardiovascular Exam Cardiovascular Exam: REGULAR RHYTHM, +S1, +S2 - GI/Abdominal Exam GI & Abdominal Exam: Soft, Normal Bowel Sounds. absent: Tenderness, Diminished Bowel Sounds, Hernia, Hypoactive Bowel Sounds - Neurological Exam Neurological Exam: Alert, Awake, Oriented x3 - Psychiatric Exam Psychiatric exam: Normal Affect, Normal Mood - Skin Skin Exam: Dry, Intact, Normal Color, Warm Assessment and Plan - Assessment and Plan (Free Text) Assessment: Subdural hematoma - Consult Neuro- Dr. Ordaz - Topamax 50mg PO daily, Tylenol 650mg PO Q6h PRN for headaches - partially help his chronic headache. 04/20: Head CT - resolving hematoma (please see full report) 04/19: F/U repeat Head CT as patient's headaches have been worsening 04/17: Patient is still an unsafe discharge because of his inability to ambulate safely and his confusion. 04/16: pending placement, unsafe discharge due to patients confusion and inability to ambulate. Patient is a unsafe discharge because he is unable to ambulate without any assistance from someone. He is very unsteady even with a walker and requires assistance for balance. Pending placement. Status: Acute Chest Pain FAITH negative CXR - right lung base consolidative markings, hilar prominence - no clinical symptoms Status: Acute Chronic Pancreatitis Assessment & Plan: Likely secondary to alcoholism continue Folic acid, multivitamin, and thiamine. Status: Chronic Prophylactic measure Assessment & Plan: Heparin 5000U SC Q12 - C/I due to subdural bleed. Pepcid 20mg PO BID Management per Dr. Derek FRITZ Planning
--- NOTE | 2017-04-30 10:23 | CP.PCM.PN ---
<Suhas Landeros - Last Filed: 04/30/17 10:20> Subjective - Date & Time of Evaluation Date of Evaluation: 04/30/17 Time of Evaluation: 07:15 - Subjective Subjective: Medicine note- Dr. Reed's service Patient was seen and examined at bedside. Patient reports no acute complaints at this time. He still has a chronic headache but says it is manageable. Patient reports he is eating well, moving his bowels normally. No events overnight. Objective - Vital Signs/Intake and Output Vital Signs (last 24 hours): Temp Pulse Resp BP Pulse Ox 98.5 F 64 20 129/79 97 04/30/17 08:00 04/30/17 08:00 04/30/17 08:00 04/30/17 08:00 04/30/17 08:00 Intake and Output: 04/30/17 04/30/17 06:59 18:59 Intake Total 250 Balance 250 - Medications Medications: Current Medications Acetaminophen (Tylenol 325mg Tab) 650 mg PO Q6 PRN PRN Reason: Pain, severe (8-10) Last Admin: 04/30/17 10:14 Dose: 650 mg Folic Acid (Folic Acid) 1 mg PO DAILY [facility] Last Admin: 04/30/17 10:15 Dose: 1 mg Multivitamins (Hexavitamin) 1 tab PO DAILY [facility] Last Admin: 04/30/17 10:15 Dose: 1 tab Nicotine (Nicoderm Cq) 1 patch TD DAILY [facility] Last Admin: 04/30/17 10:16 Dose: 1 patch Thiamine HCl (Vitamin B1 Tab) 100 mg PO DAILY [facility] Last Admin: 04/30/17 10:15 Dose: 100 mg Topiramate (Topamax) 50 mg PO DAILY [facility] Last Admin: 04/30/17 10:15 Dose: 50 mg - Labs Labs: 04/28/17 07:15 04/28/17 07:11 PT 12.0 SECONDS (9.7-12.2) 03/16/17 06:02 INR 1.1 03/16/17 06:02 APTT 33 SECONDS (21-34) 03/16/17 06:02 - Constitutional Appears: Non-toxic, No Acute Distress - Head Exam Head Exam: ATRAUMATIC, NORMAL INSPECTION, NORMOCEPHALIC - Eye Exam Pupil Exam: NORMAL ACCOMODATION, PERRL - ENT Exam ENT Exam: Mucous Membranes Moist - Neck Exam Neck Exam: Normal Inspection - Respiratory Exam Respiratory Exam: Clear to Ausculation Bilateral, NORMAL BREATHING PATTERN. absent: Prolonged Expiratory Phase, Rales, Rhonchi, Wheezes - Cardiovascular Exam Cardiovascular Exam: REGULAR RHYTHM, +S1, +S2 - GI/Abdominal Exam GI & Abdominal Exam: Soft, Normal Bowel Sounds. absent: Tenderness, Diminished Bowel Sounds, Hernia, Hypoactive Bowel Sounds - Extremities Exam Extremities Exam: Normal Capillary Refill - Neurological Exam Neurological Exam: Alert, Awake, Oriented x3 - Psychiatric Exam Psychiatric exam: Normal Affect, Normal Mood - Skin Skin Exam: Dry, Intact, Normal Color, Warm Assessment and Plan - Assessment and Plan (Free Text) Assessment: Subdural hematoma - Consult Neuro- Dr. Ordaz - Topamax 50mg PO daily, Tylenol 650mg PO Q6h PRN for headaches - partially help his chronic headache. 04/20: Head CT - resolving hematoma (please see full report) 04/19: F/U repeat Head CT as patient's headaches have been worsening 04/17: Patient is still an unsafe discharge because of his inability to ambulate safely and his confusion. 04/16: pending placement, unsafe discharge due to patients confusion and inability to ambulate. Patient is a unsafe discharge because he is unable to ambulate without any assistance from someone. He is very unsteady even with a walker and requires assistance for balance. Pending placement. Status: Acute Chest Pain FAITH negative CXR - right lung base consolidative markings, hilar prominence - no clinical symptoms Status: Acute Chronic Pancreatitis Assessment & Plan: Likely secondary to alcoholism continue Folic acid, multivitamin, and thiamine. Status: Chronic Prophylactic measure Assessment & Plan: Heparin 5000U SC Q12 - C/I due to subdural bleed. Pepcid 20mg PO BID Management per Dr. Derek FRITZ Planning <Apolonia Reed - Last Filed: 05/01/17 20:18> Objective - Vital Signs/Intake and Output Vital Signs (last 24 hours): Temp Pulse Resp BP Pulse Ox 98.6 F 87 20 135/81 95 05/01/17 15:00 05/01/17 15:00 05/01/17 15:00 05/01/17 15:00 05/01/17 15:00 Intake and Output: 05/01/17 05/02/17 18:59 06:59 Intake Total 800 Balance 800 - Medications Medications: Current Medications Acetaminophen (Tylenol 325mg Tab) 650 mg PO Q6 PRN PRN Reason: Pain, severe (8-10) Last Admin: 05/01/17 10:08 Dose: 650 mg Folic Acid (Folic Acid) 1 mg PO DAILY [facility] Last Admin: 05/01/17 10:20 Dose: 1 mg Multivitamins (Hexavitamin) 1 tab PO DAILY [facility] Last Admin: 05/01/17 10:20 Dose: 1 tab Nicotine (Nicoderm Cq) 1 patch TD DAILY [facility] Last Admin: 05/01/17 10:18 Dose: 1 patch Thiamine HCl (Vitamin B1 Tab) 100 mg PO DAILY [facility] Last Admin: 05/01/17 10:20 Dose: 100 mg Topiramate (Topamax) 50 mg PO DAILY [facility] Last Admin: 05/01/17 12:07 Dose: 50 mg - Labs Labs: 05/01/17 07:25 05/01/17 07:25 PT 12.0 SECONDS (9.7-12.2) 03/16/17 06:02 INR 1.1 03/16/17 06:02 APTT 33 SECONDS (21-34) 03/16/17 06:02 Assessment and Plan (1) Pneumonia Status: Acute (2) Skull fracture Status: Acute (3) Subarachnoid bleed Status: Acute (4) Subdural hematoma Status: Acute (5) Alcohol abuse Status: Chronic (6) Seizure Status: Resolved (7) Abdominal pain Status: Acute (8) Abrasion Status: Acute (9) Alcohol abuse with intoxication Status: Acute (10) Alcohol intoxication Status: Acute (11) Alcohol withdrawal Status: Acute (12) Alcohol withdrawal seizure Status: Acute (13) Bacteremia Status: Acute (14) Bilateral lower extremity edema Status: Acute (15) Breakthrough seizure Status: Acute (16) Cellulitis Status: Acute (17) Cellulitis of lower extremity Status: Acute (18) Chronic calcific pancreatitis Status: Acute (19) Dehydration Status: Acute (20) Diarrhea Status: Acute (21) Dressing change/suture removal Status: Acute (22) Drug dependence Status: Acute (23) Duodenitis Status: Acute (24) Electrolyte imbalance Status: Acute (25) Elevated alkaline phosphatase level Status: Acute (26) Facial laceration Status: Acute (27) Fever Status: Acute (28) Head trauma Status: Acute (29) Homelessness Status: Acute (30) Hyperphosphatemia Status: Acute (31) Hypokalemia Status: Acute (32) Hypokalemia with normal acid-base balance Status: Acute (33) Hypomagnesemia Status: Acute (34) Hypothermia Status: Acute (35) Low vitamin D level Status: Acute (36) Pancreatic mass Status: Acute (37) Pancreatitis, acute Status: Acute (38) Periapical abscess Status: Acute (39) Pneumonia Status: Acute (40) Prophylactic measure Status: Acute (41) Respiratory failure with hypoxia and hypercapnia Status: Acute (42) Seizure Status: Acute (43) Subdural hemorrhage Status: Acute (44) Thrombocythemia Status: Acute (45) Thrombocytopenia Status: Acute (46) Tobacco abuse Status: Acute (47) Tremors of nervous system Status: Acute (48) Vitamin D deficiency Status: Acute (49) Acute on chronic pancreatitis Status: Chronic (50) Alcohol abuse Status: Chronic (51) Alcohol dependence Status: Chronic (52) Anemia Status: Chronic (53) Anxiety and depression Status: Chronic (54) Aspiration into lower respiratory tract Status: Chronic (55) COPD (chronic obstructive pulmonary disease) Status: Chronic (56) Cholecystitis Status: Chronic (57) Chronic pancreatitis Status: Chronic (58) Depression Status: Chronic (59) Hypertension Status: Chronic (60) Peripheral motor neuropathy Status: Chronic (61) Empyema Status: Suspected Attending/Attestation - Attestation I have personally seen and examined this patient.: Yes I have fully participated in the care of the patient.: Yes I have reviewed all pertinent clinical information, including history, physical exam and plan: Yes Notes (Text): Case seen and discussed with the staff continue same status post subdural hematoma status post neurology neurosurgery awaiting placement unable to walk more than 10 feet insurance denied subacute placement
[2017-05-01 07:37] LABS: BASO % 0.9 % (0.0-2.0); EOS # 0.4 K/uL (0.0-0.7); EOS % 8.8 % (0.0-4.0); HEMATOCRIT 35.6 % (35.0-51.0); LYMPH # 1.3 K/uL (1.0-4.3); LYMPH % 31.1 % (20.0-40.0); MEAN CELL VOLUME 79.9 fL (80.0-94.0); MEAN CORPUSCULAR HEMOGLOBIN 26.1 pg (27.0-31.0); MEAN CORPUSCULAR HGB CONC 32.7 g/dL (33.0-37.0); MEAN PLATELET VOLUME 8.6 fL (7.2-11.7); MONO # 0.3 K/uL (0.0-0.8); MONO % 8.1 % (0.0-10.0); NRBC % 0.1 % (0.0-2.0); RED CELL DISTRIBUTION WIDTH 18.6 % (11.5-14.5); WHITE BLOOD COUNT 4.2 K/uL (4.8-10.8)
[2017-05-01 07:53] LABS: CHLORIDE 106 mmol/L (98-107); SODIUM 139 mmol/L (132-148)
[2017-05-01 07:54] LABS: POTASSIUM 3.7 mmol/L (3.6-5.2)
[2017-05-01 07:56] LABS: ALB/GLOB RATIO 1.2 (1.0-2.1); AST/SGOT 42 U/L (17-59); BILIRUBIN,TOTAL 0.5 mg/dL (0.2-1.3); BLOOD UREA NITROGEN 12 mg/dL (9-20); CARBON DIOXIDE 19 mmol/L (22-30); GFR AFRICAN-AMERICAN > 60; GLUCOSE,RANDOM 111 mg/dL (75-110); TOTAL PROTEIN 7.2 g/dL (6.3-8.3)
[2017-05-01 07:57] LABS: ALKALINE PHOSPHATASE 76 U/L (38-126); ALT/SGPT 57 U/L (21-72); CALCIUM 9.3 mg/dl (8.6-10.4)
--- NOTE | 2017-05-01 09:38 | CP.PCM.PN ---
<Suhas Landeros - Last Filed: 05/01/17 09:36> Subjective - Date & Time of Evaluation Date of Evaluation: 05/01/17 Time of Evaluation: 07:40 - Subjective Subjective: Medicine Note- Dr. Reed's service Patient was seen and examined at bedside. Patient reports no acute complaints at this time. He still has a chronic headache and mild intermittent abdominal pain that improves with eating. No events overnight. Objective - Vital Signs/Intake and Output Vital Signs (last 24 hours): Temp Pulse Resp BP Pulse Ox 97.7 F 76 20 127/73 97 05/01/17 08:00 05/01/17 08:00 05/01/17 08:00 05/01/17 08:00 05/01/17 08:00 Intake and Output: 05/01/17 05/01/17 06:59 18:59 Intake Total 900 Balance 900 - Medications Medications: Current Medications Acetaminophen (Tylenol 325mg Tab) 650 mg PO Q6 PRN PRN Reason: Pain, severe (8-10) Last Admin: 05/01/17 04:10 Dose: 650 mg Folic Acid (Folic Acid) 1 mg PO DAILY [facility] Last Admin: 04/30/17 10:15 Dose: 1 mg Multivitamins (Hexavitamin) 1 tab PO DAILY [facility] Last Admin: 04/30/17 10:15 Dose: 1 tab Nicotine (Nicoderm Cq) 1 patch TD DAILY [facility] Last Admin: 04/30/17 10:16 Dose: 1 patch Thiamine HCl (Vitamin B1 Tab) 100 mg PO DAILY [facility] Last Admin: 04/30/17 10:15 Dose: 100 mg Topiramate (Topamax) 50 mg PO DAILY [facility] Last Admin: 04/30/17 10:15 Dose: 50 mg - Labs Labs: 05/01/17 07:25 05/01/17 07:25 PT 12.0 SECONDS (9.7-12.2) 03/16/17 06:02 INR 1.1 03/16/17 06:02 APTT 33 SECONDS (21-34) 03/16/17 06:02 - Constitutional Appears: Non-toxic, No Acute Distress - Head Exam Head Exam: ATRAUMATIC, NORMAL INSPECTION, NORMOCEPHALIC - Eye Exam Pupil Exam: NORMAL ACCOMODATION - ENT Exam ENT Exam: Mucous Membranes Moist - Respiratory Exam Respiratory Exam: Clear to Ausculation Bilateral, NORMAL BREATHING PATTERN. absent: Prolonged Expiratory Phase, Rales, Rhonchi, Wheezes - Cardiovascular Exam Cardiovascular Exam: REGULAR RHYTHM, +S1, +S2 - GI/Abdominal Exam GI & Abdominal Exam: Soft, Tenderness (mildly tender epigastrum), Normal Bowel Sounds. absent: Diminished Bowel Sounds, Hernia, Hypoactive Bowel Sounds - Extremities Exam Extremities Exam: Normal Capillary Refill, Normal Inspection - Neurological Exam Neurological Exam: Alert, Awake, Oriented x3 - Psychiatric Exam Psychiatric exam: Normal Affect, Normal Mood - Skin Skin Exam: Dry, Intact, Normal Color, Warm Assessment and Plan - Assessment and Plan (Free Text) Assessment: Subdural hematoma - Consult Neuro- Dr. Ordaz - Topamax 50mg PO daily, Tylenol 650mg PO Q6h PRN for headaches - partially help his chronic headache. 04/20: Head CT - resolving hematoma (please see full report) 04/19: F/U repeat Head CT as patient's headaches have been worsening 04/17: Patient is still an unsafe discharge because of his inability to ambulate safely and his confusion. 04/16: pending placement, unsafe discharge due to patients confusion and inability to ambulate. Patient is a unsafe discharge because he is unable to ambulate without any assistance from someone. He is very unsteady even with a walker and requires assistance for balance. Pending placement. Status: Acute Chest Pain FAITH negative CXR - right lung base consolidative markings, hilar prominence - no clinical symptoms Status: Acute Chronic Pancreatitis Assessment & Plan: Likely secondary to alcoholism continue Folic acid, multivitamin, and thiamine. Status: Chronic Prophylactic measure Assessment & Plan: Heparin 5000U SC Q12 - C/I due to subdural bleed. Pepcid 20mg PO BID Management per Dr. Derek FRITZ Planning <Apolonia Reed S - Last Filed: 05/01/17 20:17> Objective - Vital Signs/Intake and Output Vital Signs (last 24 hours): Temp Pulse Resp BP Pulse Ox 98.6 F 87 20 135/81 95 05/01/17 15:00 05/01/17 15:00 05/01/17 15:00 05/01/17 15:00 05/01/17 15:00 Intake and Output: 05/01/17 05/02/17 18:59 06:59 Intake Total 800 Balance 800 - Medications Medications: Current Medications Acetaminophen (Tylenol 325mg Tab) 650 mg PO Q6 PRN PRN Reason: Pain, severe (8-10) Last Admin: 05/01/17 10:08 Dose: 650 mg Folic Acid (Folic Acid) 1 mg PO DAILY [facility] Last Admin: 05/01/17 10:20 Dose: 1 mg Multivitamins (Hexavitamin) 1 tab PO DAILY [facility] Last Admin: 05/01/17 10:20 Dose: 1 tab Nicotine (Nicoderm Cq) 1 patch TD DAILY [facility] Last Admin: 05/01/17 10:18 Dose: 1 patch Thiamine HCl (Vitamin B1 Tab) 100 mg PO DAILY [facility] Last Admin: 05/01/17 10:20 Dose: 100 mg Topiramate (Topamax) 50 mg PO DAILY [facility] Last Admin: 05/01/17 12:07 Dose: 50 mg - Labs Labs: 05/01/17 07:25 05/01/17 07:25 PT 12.0 SECONDS (9.7-12.2) 03/16/17 06:02 INR 1.1 03/16/17 06:02 APTT 33 SECONDS (21-34) 03/16/17 06:02 Assessment and Plan (1) Pneumonia Status: Acute (2) Skull fracture Status: Acute (3) Subarachnoid bleed Status: Acute (4) Subdural hematoma Status: Acute (5) Alcohol abuse Status: Chronic (6) Seizure Status: Resolved (7) Abdominal pain Status: Acute (8) Abrasion Status: Acute (9) Alcohol abuse with intoxication Status: Acute (10) Alcohol intoxication Status: Acute (11) Alcohol withdrawal Status: Acute (12) Alcohol withdrawal seizure Status: Acute (13) Bacteremia Status: Acute (14) Bilateral lower extremity edema Status: Acute (15) Breakthrough seizure Status: Acute (16) Cellulitis Status: Acute (17) Cellulitis of lower extremity Status: Acute (18) Chronic calcific pancreatitis Status: Acute (19) Dehydration Status: Acute (20) Diarrhea Status: Acute (21) Dressing change/suture removal Status: Acute (22) Drug dependence Status: Acute (23) Duodenitis Status: Acute (24) Electrolyte imbalance Status: Acute (25) Elevated alkaline phosphatase level Status: Acute (26) Facial laceration Status: Acute (27) Fever Status: Acute (28) Head trauma Status: Acute (29) Homelessness Status: Acute (30) Hyperphosphatemia Status: Acute (31) Hypokalemia Status: Acute (32) Hypokalemia with normal acid-base balance Status: Acute (33) Hypomagnesemia Status: Acute (34) Hypothermia Status: Acute (35) Low vitamin D level Status: Acute (36) Pancreatic mass Status: Acute (37) Pancreatitis, acute Status: Acute (38) Periapical abscess Status: Acute (39) Pneumonia Status: Acute (40) Prophylactic measure Status: Acute (41) Respiratory failure with hypoxia and hypercapnia Status: Acute (42) Seizure Status: Acute (43) Subdural hemorrhage Status: Acute (44) Thrombocythemia Status: Acute (45) Thrombocytopenia Status: Acute (46) Tobacco abuse Status: Acute (47) Tremors of nervous system Status: Acute (48) Vitamin D deficiency Status: Acute (49) Acute on chronic pancreatitis Status: Chronic (50) Alcohol abuse Status: Chronic (51) Alcohol dependence Status: Chronic (52) Anemia Status: Chronic (53) Anxiety and depression Status: Chronic (54) Aspiration into lower respiratory tract Status: Chronic (55) COPD (chronic obstructive pulmonary disease) Status: Chronic (56) Cholecystitis Status: Chronic (57) Chronic pancreatitis Status: Chronic (58) Depression Status: Chronic (59) Hypertension Status: Chronic (60) Peripheral motor neuropathy Status: Chronic (61) Empyema Status: Suspected Attending/Attestation - Attestation I have personally seen and examined this patient.: Yes I have fully participated in the care of the patient.: Yes I have reviewed all pertinent clinical information, including history, physical exam and plan: Yes Notes (Text): 05/01/17 20:17 clinically seen and discusse [facility] staff s orderd awaiting jaycee
[2017-05-01] MEDS: Multiple Vitamins Tab PO SCH (10:20)
--- NOTE | 2017-05-01 14:17 | CP.PCM.PN ---
Subjective - Date & Time of Evaluation Date of Evaluation: 05/01/17 Time of Evaluation: 07:00 - Subjective Subjective: clinically same Objective - Vital Signs/Intake and Output Vital Signs (last 24 hours): Temp Pulse Resp BP Pulse Ox 97.7 F 76 20 127/73 97 05/01/17 08:00 05/01/17 08:00 05/01/17 08:00 05/01/17 08:00 05/01/17 08:00 Intake and Output: 05/01/17 05/01/17 06:59 18:59 Intake Total 900 800 Balance 900 800 - Medications Medications: Current Medications Acetaminophen (Tylenol 325mg Tab) 650 mg PO Q6 PRN PRN Reason: Pain, severe (8-10) Last Admin: 05/01/17 10:08 Dose: 650 mg Folic Acid (Folic Acid) 1 mg PO DAILY [facility] Last Admin: 05/01/17 10:20 Dose: 1 mg Multivitamins (Hexavitamin) 1 tab PO DAILY [facility] Last Admin: 05/01/17 10:20 Dose: 1 tab Nicotine (Nicoderm Cq) 1 patch TD DAILY [facility] Last Admin: 05/01/17 10:18 Dose: 1 patch Thiamine HCl (Vitamin B1 Tab) 100 mg PO DAILY [facility] Last Admin: 05/01/17 10:20 Dose: 100 mg Topiramate (Topamax) 50 mg PO DAILY [facility] Last Admin: 05/01/17 12:07 Dose: 50 mg - Labs Labs: 05/01/17 07:25 05/01/17 07:25 PT 12.0 SECONDS (9.7-12.2) 03/16/17 06:02 INR 1.1 03/16/17 06:02 APTT 33 SECONDS (21-34) 03/16/17 06:02 - Constitutional Appears: Well - Head Exam Head Exam: ATRAUMATIC, NORMAL INSPECTION, NORMOCEPHALIC - Eye Exam Eye Exam: EOMI, Normal appearance, PERRL Pupil Exam: NORMAL ACCOMODATION, PERRL - ENT Exam ENT Exam: Mucous Membranes Moist, Normal Exam - Neck Exam Neck Exam: Full ROM, Normal Inspection. absent: Lymphadenopathy - Respiratory Exam Respiratory Exam: Decreased Breath Sounds - Cardiovascular Exam Cardiovascular Exam: REGULAR RHYTHM, +S1, +S2 - GI/Abdominal Exam GI & Abdominal Exam: Soft, Diminished Bowel Sounds - Rectal Exam Rectal Exam: Deferred Assessment and Plan (1) Pneumonia Status: Acute (2) Skull fracture Status: Acute (3) Subarachnoid bleed Status: Acute (4) Subdural hematoma Status: Acute (5) Alcohol abuse Status: Chronic (6) Seizure Status: Resolved (7) Abdominal pain Status: Acute (8) Abrasion Status: Acute (9) Alcohol abuse with intoxication Status: Acute (10) Alcohol intoxication Status: Acute (11) Alcohol withdrawal Status: Acute (12) Alcohol withdrawal seizure Status: Acute (13) Bacteremia Status: Acute (14) Bilateral lower extremity edema Status: Acute (15) Breakthrough seizure Status: Acute (16) Cellulitis Status: Acute (17) Cellulitis of lower extremity Status: Acute (18) Chronic calcific pancreatitis Status: Acute (19) Dehydration Status: Acute (20) Diarrhea Status: Acute (21) Dressing change/suture removal Status: Acute (22) Drug dependence Status: Acute (23) Duodenitis Status: Acute (24) Electrolyte imbalance Status: Acute (25) Elevated alkaline phosphatase level Status: Acute (26) Facial laceration Status: Acute (27) Fever Status: Acute (28) Head trauma Status: Acute (29) Homelessness Status: Acute (30) Hyperphosphatemia Status: Acute (31) Hypokalemia Status: Acute (32) Hypokalemia with normal acid-base balance Status: Acute (33) Hypomagnesemia Status: Acute (34) Hypothermia Status: Acute (35) Low vitamin D level Status: Acute (36) Pancreatic mass Status: Acute (37) Pancreatitis, acute Status: Acute (38) Periapical abscess Status: Acute (39) Pneumonia Status: Acute (40) Prophylactic measure Status: Acute (41) Respiratory failure with hypoxia and hypercapnia Status: Acute (42) Seizure Status: Acute (43) Subdural hemorrhage Status: Acute (44) Thrombocythemia Status: Acute (45) Thrombocytopenia Status: Acute (46) Tobacco abuse Status: Acute (47) Tremors of nervous system Status: Acute (48) Vitamin D deficiency Status: Acute (49) Acute on chronic pancreatitis Status: Chronic (50) Alcohol abuse Status: Chronic (51) Alcohol dependence Status: Chronic (52) Anemia Status: Chronic (53) Anxiety and depression Status: Chronic (54) Aspiration into lower respiratory tract Status: Chronic (55) COPD (chronic obstructive pulmonary disease) Status: Chronic (56) Cholecystitis Status: Chronic (57) Chronic pancreatitis Status: Chronic (58) Depression Status: Chronic (59) Hypertension Status: Chronic (60) Peripheral motor neuropathy Status: Chronic (61) Empyema Status: Suspected - Assessment and Plan (Free Text) Plan: Consult Neuro- Dr. Ordaz - Topamax 50mg PO daily, Tylenol 650mg PO Q6h PRN for headaches - partially help his chronic headache. 04/20: Head CT - resolving hematoma (please see full report) 04/19: F/U repeat Head CT as patient's headaches have been worsening 04/17: Patient is still an unsafe discharge because of his inability to ambulate safely and his confusion. 04/16: pending placement, unsafe discharge due to patients confusion and inability to ambulate. Patient is a unsafe discharge because he is unable to ambulate without any assistance from someone. He is very unsteady even with a walker and requires assistance for balance. Pending placement. Status: Acute Awaiting placement
--- NOTE | 2017-05-01 17:20 | CP.PCM.PN ---
Subjective - Date & Time of Evaluation Date of Evaluation: 05/01/17 Time of Evaluation: 17:20 - Subjective Subjective: Patient seen and examined No events overnight Physical exam Vital signs noted General - no distress Neck - supple CVS - S1-S2 heard Lungs - bilateral rhonchi Abdomen - soft, ND Extremity - no edema Neuro - nonfocal Assessment/plan S/P acute respiratory failureS/P extubated COPD Pneumonia - s/p Abx Rx SAH SDH Seizures History of alcohol abuse Thiamine/folate Bronchodilators Awaiting placement Continue supportive care DVT/GI prophylaxis Objective - Vital Signs/Intake and Output Vital Signs (last 24 hours): Temp Pulse Resp BP Pulse Ox 98.6 F 87 20 135/81 95 05/01/17 15:00 05/01/17 15:00 05/01/17 15:00 05/01/17 15:00 05/01/17 15:00 Intake and Output: 05/01/17 05/01/17 06:59 18:59 Intake Total 900 800 Balance 900 800 - Medications Medications: Current Medications Acetaminophen (Tylenol 325mg Tab) 650 mg PO Q6 PRN PRN Reason: Pain, severe (8-10) Last Admin: 05/01/17 10:08 Dose: 650 mg Folic Acid (Folic Acid) 1 mg PO DAILY [facility] Last Admin: 05/01/17 10:20 Dose: 1 mg Multivitamins (Hexavitamin) 1 tab PO DAILY [facility] Last Admin: 05/01/17 10:20 Dose: 1 tab Nicotine (Nicoderm Cq) 1 patch TD DAILY [facility] Last Admin: 05/01/17 10:18 Dose: 1 patch Thiamine HCl (Vitamin B1 Tab) 100 mg PO DAILY [facility] Last Admin: 05/01/17 10:20 Dose: 100 mg Topiramate (Topamax) 50 mg PO DAILY [facility] Last Admin: 05/01/17 12:07 Dose: 50 mg - Labs Labs: 05/01/17 07:25 05/01/17 07:25 PT 12.0 SECONDS (9.7-12.2) 03/16/17 06:02 INR 1.1 03/16/17 06:02 APTT 33 SECONDS (21-34) 03/16/17 06:02
[2017-05-02 06:26] LABS: BASO # 0.1 K/uL (0.0-0.2); BASO % 1.3 % (0.0-2.0); EOS # 0.5 K/uL (0.0-0.7); EOS % 9.8 % (0.0-4.0); HEMATOCRIT 37.7 % (35.0-51.0); LYMPH # 1.6 K/uL (1.0-4.3); LYMPH % 35.6 % (20.0-40.0); MEAN CELL VOLUME 80.8 fL (80.0-94.0); MEAN CORPUSCULAR HEMOGLOBIN 26.1 pg (27.0-31.0); MEAN CORPUSCULAR HGB CONC 32.3 g/dL (33.0-37.0); MEAN PLATELET VOLUME 8.1 fL (7.2-11.7); MONO # 0.4 K/uL (0.0-0.8); MONO % 8.6 % (0.0-10.0); RED CELL DISTRIBUTION WIDTH 18.6 % (11.5-14.5); WHITE BLOOD COUNT 4.6 K/uL (4.8-10.8)
[2017-05-02 06:49] LABS: CHLORIDE 102 mmol/L (98-107); POTASSIUM 3.7 mmol/L (3.6-5.2); SODIUM 139 mmol/L (132-148)
[2017-05-02 06:51] LABS: GFR AFRICAN-AMERICAN > 60
[2017-05-02 06:52] LABS: ALB/GLOB RATIO 1.2 (1.0-2.1); ALKALINE PHOSPHATASE 77 U/L (38-126); ALT/SGPT 44 U/L (21-72); AST/SGOT 32 U/L (17-59); BILIRUBIN,TOTAL 0.5 mg/dL (0.2-1.3); BLOOD UREA NITROGEN 11 mg/dL (9-20); CARBON DIOXIDE 22 mmol/L (22-30); GLUCOSE,RANDOM 135 mg/dL (75-110); TOTAL PROTEIN 7.5 g/dL (6.3-8.3)
[2017-05-02 06:53] LABS: CALCIUM 9.4 mg/dl (8.6-10.4)
[2017-05-02] MEDS: Multiple Vitamins Tab PO SCH (09:41)
--- NOTE | 2017-05-02 10:00 | CP.PCM.PN ---
Subjective - Date & Time of Evaluation Date of Evaluation: 05/02/17 Time of Evaluation: 09:56 - Subjective Subjective: PGY2 Medicine Note- Dr. Reed's Service Patient seen and examined. Patient with complaint of headache and mild cough that is chronic. Patient states tylenol partially helps headache. Patient states he is walking with PT, still feels unsteady on his feet. Objective - Vital Signs/Intake and Output Vital Signs (last 24 hours): Temp Pulse Resp BP Pulse Ox 98.3 F 70 20 120/78 96 05/02/17 07:58 05/02/17 07:58 05/02/17 07:58 05/02/17 07:58 05/02/17 07:58 Intake and Output: 05/02/17 05/02/17 06:59 18:59 Intake Total 830 Balance 830 - Medications Medications: Current Medications Acetaminophen (Tylenol 325mg Tab) 650 mg PO Q6 PRN PRN Reason: Pain, severe (8-10) Last Admin: 05/02/17 02:58 Dose: 650 mg Folic Acid (Folic Acid) 1 mg PO DAILY [facility] Last Admin: 05/02/17 09:41 Dose: 1 mg Multivitamins (Hexavitamin) 1 tab PO DAILY [facility] Last Admin: 05/02/17 09:41 Dose: 1 tab Nicotine (Nicoderm Cq) 1 patch TD DAILY [facility] Last Admin: 05/02/17 09:41 Dose: 1 patch Thiamine HCl (Vitamin B1 Tab) 100 mg PO DAILY [facility] Last Admin: 05/02/17 09:41 Dose: 100 mg Topiramate (Topamax) 50 mg PO DAILY [facility] Last Admin: 05/01/17 12:07 Dose: 50 mg - Labs Labs: 05/02/17 06:19 05/02/17 06:19 PT 12.0 SECONDS (9.7-12.2) 03/16/17 06:02 INR 1.1 03/16/17 06:02 APTT 33 SECONDS (21-34) 03/16/17 06:02 - Constitutional Appears: Non-toxic, No Acute Distress - Head Exam Head Exam: NORMOCEPHALIC - Eye Exam Eye Exam: EOMI - ENT Exam ENT Exam: Mucous Membranes Moist - Respiratory Exam Respiratory Exam: Clear to Ausculation Bilateral, NORMAL BREATHING PATTERN - Cardiovascular Exam Cardiovascular Exam: +S1, +S2 - GI/Abdominal Exam GI & Abdominal Exam: Soft, Normal Bowel Sounds. absent: Guarding, Rigid - Extremities Exam Extremities Exam: Normal Inspection. absent: Pedal Edema - Neurological Exam Neurological Exam: Alert, Awake - Psychiatric Exam Psychiatric exam: Normal Affect, Normal Mood - Skin Skin Exam: Dry, Warm Assessment and Plan - Assessment and Plan (Free Text) Assessment: Subdural hematoma - Consult Neuro- Dr. Ordaz - Topamax 50mg PO daily, Tylenol 650mg PO Q6h PRN for headaches - partially help his chronic headache. 04/20: Head CT - resolving hematoma (please see full report) 04/19: F/U repeat Head CT as patient's headaches have been worsening 04/17: Patient is still an unsafe discharge because of his inability to ambulate safely and his confusion. 04/16: pending placement, unsafe discharge due to patients confusion and inability to ambulate. Patient is a unsafe discharge because he is unable to ambulate without any assistance from someone. He is very unsteady even with a walker and requires assistance for balance. Pending placement. Status: Acute Chest Pain FAITH negative CXR - right lung base consolidative markings, hilar prominence - no clinical symptoms Status: Acute Chronic Pancreatitis Assessment & Plan: Likely secondary to alcoholism continue Folic acid, multivitamin, and thiamine. Status: Chronic Prophylactic measure Assessment & Plan: Heparin 5000U SC Q12 - C/I due to subdural bleed. Pepcid 20mg PO BID Management per Dr. Derek FRITZ Planning
[2017-05-02] MEDS ORDERED: Potassium Chloride 20 mEq ER Tab PO ONE (10:01)
--- NOTE | 2017-05-02 11:41 | CP.PCM.PN ---
Subjective - Date & Time of Evaluation Date of Evaluation: 05/02/17 Time of Evaluation: 07:00 - Subjective Subjective: clinically same Objective - Vital Signs/Intake and Output Vital Signs (last 24 hours): Temp Pulse Resp BP Pulse Ox 98.3 F 70 20 120/78 96 05/02/17 07:58 05/02/17 07:58 05/02/17 07:58 05/02/17 07:58 05/02/17 07:58 Intake and Output: 05/02/17 05/02/17 06:59 18:59 Intake Total 830 Balance 830 - Medications Medications: Current Medications Acetaminophen (Tylenol 325mg Tab) 650 mg PO Q6 PRN PRN Reason: Pain, severe (8-10) Last Admin: 05/02/17 02:58 Dose: 650 mg Folic Acid (Folic Acid) 1 mg PO DAILY [facility] Last Admin: 05/02/17 09:41 Dose: 1 mg Multivitamins (Hexavitamin) 1 tab PO DAILY [facility] Last Admin: 05/02/17 09:41 Dose: 1 tab Nicotine (Nicoderm Cq) 1 patch TD DAILY [facility] Last Admin: 05/02/17 09:41 Dose: 1 patch Thiamine HCl (Vitamin B1 Tab) 100 mg PO DAILY [facility] Last Admin: 05/02/17 09:41 Dose: 100 mg Topiramate (Topamax) 50 mg PO DAILY [facility] Last Admin: 05/02/17 10:35 Dose: 50 mg - Labs Labs: 05/02/17 06:19 05/02/17 06:19 PT 12.0 SECONDS (9.7-12.2) 03/16/17 06:02 INR 1.1 03/16/17 06:02 APTT 33 SECONDS (21-34) 03/16/17 06:02 - Constitutional Appears: Well - Head Exam Head Exam: ATRAUMATIC, NORMAL INSPECTION, NORMOCEPHALIC - Eye Exam Eye Exam: EOMI, Normal appearance, PERRL Pupil Exam: NORMAL ACCOMODATION, PERRL - ENT Exam ENT Exam: Mucous Membranes Moist, Normal Exam - Neck Exam Neck Exam: Full ROM, Normal Inspection. absent: Lymphadenopathy - Respiratory Exam Respiratory Exam: Decreased Breath Sounds - Cardiovascular Exam Cardiovascular Exam: REGULAR RHYTHM, +S1, +S2 - GI/Abdominal Exam GI & Abdominal Exam: Soft, Diminished Bowel Sounds - Rectal Exam Rectal Exam: Deferred Assessment and Plan (1) Pneumonia Status: Acute (2) Skull fracture Status: Acute (3) Subarachnoid bleed Status: Acute (4) Subdural hematoma Status: Acute (5) Alcohol abuse Status: Chronic (6) Seizure Status: Resolved (7) Abdominal pain Status: Acute (8) Abrasion Status: Acute (9) Alcohol abuse with intoxication Status: Acute (10) Alcohol intoxication Status: Acute (11) Alcohol withdrawal Status: Acute (12) Alcohol withdrawal seizure Status: Acute (13) Bacteremia Status: Acute (14) Bilateral lower extremity edema Status: Acute (15) Breakthrough seizure Status: Acute (16) Cellulitis Status: Acute (17) Cellulitis of lower extremity Status: Acute (18) Chronic calcific pancreatitis Status: Acute (19) Dehydration Status: Acute (20) Diarrhea Status: Acute (21) Dressing change/suture removal Status: Acute (22) Drug dependence Status: Acute (23) Duodenitis Status: Acute (24) Electrolyte imbalance Status: Acute (25) Elevated alkaline phosphatase level Status: Acute (26) Facial laceration Status: Acute (27) Fever Status: Acute (28) Head trauma Status: Acute (29) Homelessness Status: Acute (30) Hyperphosphatemia Status: Acute (31) Hypokalemia Status: Acute (32) Hypokalemia with normal acid-base balance Status: Acute (33) Hypomagnesemia Status: Acute (34) Hypothermia Status: Acute (35) Low vitamin D level Status: Acute (36) Pancreatic mass Status: Acute (37) Pancreatitis, acute Status: Acute (38) Periapical abscess Status: Acute (39) Pneumonia Status: Acute (40) Prophylactic measure Status: Acute (41) Respiratory failure with hypoxia and hypercapnia Status: Acute (42) Seizure Status: Acute (43) Subdural hemorrhage Status: Acute (44) Thrombocythemia Status: Acute (45) Thrombocytopenia Status: Acute (46) Tobacco abuse Status: Acute (47) Tremors of nervous system Status: Acute (48) Vitamin D deficiency Status: Acute (49) Acute on chronic pancreatitis Status: Chronic (50) Alcohol abuse Status: Chronic (51) Alcohol dependence Status: Chronic (52) Anemia Status: Chronic (53) Anxiety and depression Status: Chronic (54) Aspiration into lower respiratory tract Status: Chronic (55) COPD (chronic obstructive pulmonary disease) Status: Chronic (56) Cholecystitis Status: Chronic (57) Chronic pancreatitis Status: Chronic (58) Depression Status: Chronic (59) Hypertension Status: Chronic (60) Peripheral motor neuropathy Status: Chronic (61) Empyema Status: Suspected - Assessment and Plan (Free Text) Plan: Follow-up neurologist Follow-up IV Continue Keppra Continue thiamine Continue folic acid Continue Pepcid
--- NOTE | 2017-05-02 17:49 | CP.PCM.PN ---
Subjective - Date & Time of Evaluation Date of Evaluation: 05/02/17 Time of Evaluation: 17:49 - Subjective Subjective: Patient seen and examined No events overnight Physical exam Vital signs noted General - no distress Neck - supple CVS - S1-S2 heard Lungs - bilateral rhonchi Abdomen - soft, ND Extremity - no edema Neuro - nonfocal Assessment/plan S/P acute respiratory failureS/P extubated COPD Pneumonia - s/p Abx Rx SAH SDH Seizures History of alcohol abuse Thiamine/folate Bronchodilators Awaiting placement Continue supportive care DVT/GI prophylaxis Objective - Vital Signs/Intake and Output Vital Signs (last 24 hours): Temp Pulse Resp BP Pulse Ox 98.1 F 69 20 147/90 98 05/02/17 15:00 05/02/17 15:00 05/02/17 15:00 05/02/17 15:00 05/02/17 15:00 Intake and Output: 05/02/17 05/02/17 06:59 18:59 Intake Total 830 Balance 830 - Medications Medications: Current Medications Acetaminophen (Tylenol 325mg Tab) 650 mg PO Q6 PRN PRN Reason: Pain, severe (8-10) Last Admin: 05/02/17 16:21 Dose: 650 mg Folic Acid (Folic Acid) 1 mg PO DAILY [facility] Last Admin: 05/02/17 09:41 Dose: 1 mg Multivitamins (Hexavitamin) 1 tab PO DAILY [facility] Last Admin: 05/02/17 09:41 Dose: 1 tab Nicotine (Nicoderm Cq) 1 patch TD DAILY [facility] Last Admin: 05/02/17 09:41 Dose: 1 patch Thiamine HCl (Vitamin B1 Tab) 100 mg PO DAILY [facility] Last Admin: 05/02/17 09:41 Dose: 100 mg Topiramate (Topamax) 50 mg PO DAILY [facility] Last Admin: 05/02/17 10:35 Dose: 50 mg - Labs Labs: 05/02/17 06:19 05/02/17 06:19 PT 12.0 SECONDS (9.7-12.2) 03/16/17 06:02 INR 1.1 03/16/17 06:02 APTT 33 SECONDS (21-34) 03/16/17 06:02
[2017-05-03 07:19] LABS: CHLORIDE 102 mmol/L (98-107)
[2017-05-03 07:20] LABS: POTASSIUM 3.9 mmol/L (3.6-5.2); SODIUM 139 mmol/L (132-148)
[2017-05-03 07:22] LABS: GFR AFRICAN-AMERICAN > 60
[2017-05-03 07:23] LABS: ALB/GLOB RATIO 1.1 (1.0-2.1); ALKALINE PHOSPHATASE 78 U/L (38-126); ALT/SGPT 51 U/L (21-72); AST/SGOT 40 U/L (17-59); BILIRUBIN,TOTAL 0.5 mg/dL (0.2-1.3); BLOOD UREA NITROGEN 12 mg/dL (9-20); CALCIUM 9.8 mg/dl (8.6-10.4); CARBON DIOXIDE 23 mmol/L (22-30); GLUCOSE,RANDOM 115 mg/dL (75-110); TOTAL PROTEIN 7.6 g/dL (6.3-8.3)
[2017-05-03 07:27] LABS: BASO # 0.1 K/uL (0.0-0.2); EOS # 0.5 K/uL (0.0-0.7); EOS % 9.5 % (0.0-4.0); HEMATOCRIT 36.9 % (35.0-51.0); LYMPH # 1.8 K/uL (1.0-4.3); LYMPH % 33.2 % (20.0-40.0); MEAN CELL VOLUME 81.1 fL (80.0-94.0); MEAN CORPUSCULAR HEMOGLOBIN 25.8 pg (27.0-31.0); MEAN CORPUSCULAR HGB CONC 31.8 g/dL (33.0-37.0); MEAN PLATELET VOLUME 8.6 fL (7.2-11.7); MONO # 0.5 K/uL (0.0-0.8); MONO % 8.8 % (0.0-10.0); NRBC % 0.1 % (0.0-2.0); RED CELL DISTRIBUTION WIDTH 18.4 % (11.5-14.5); WHITE BLOOD COUNT 5.3 K/uL (4.8-10.8)
--- NOTE | 2017-05-03 09:25 | CP.PCM.PN ---
Subjective - Date & Time of Evaluation Date of Evaluation: 05/03/17 Time of Evaluation: 09:25 - Subjective Subjective: PGY2 Medicine Note- Dr. Reed's service Patient seen and examined. Patient pending placement due to insurance approval. Objective - Vital Signs/Intake and Output Vital Signs (last 24 hours): Temp Pulse Resp BP Pulse Ox 98 F 75 20 124/78 96 05/03/17 07:26 05/03/17 07:26 05/03/17 07:26 05/03/17 07:26 05/03/17 07:26 Intake and Output: 05/03/17 05/03/17 06:59 18:59 Intake Total 750 Balance 750 - Medications Medications: Current Medications Acetaminophen (Tylenol 325mg Tab) 650 mg PO Q6 PRN PRN Reason: Pain, severe (8-10) Last Admin: 05/03/17 06:25 Dose: 650 mg Folic Acid (Folic Acid) 1 mg PO DAILY [facility] Last Admin: 05/02/17 09:41 Dose: 1 mg Multivitamins (Hexavitamin) 1 tab PO DAILY [facility] Last Admin: 05/02/17 09:41 Dose: 1 tab Nicotine (Nicoderm Cq) 1 patch TD DAILY [facility] Last Admin: 05/02/17 09:41 Dose: 1 patch Thiamine HCl (Vitamin B1 Tab) 100 mg PO DAILY [facility] Last Admin: 05/02/17 09:41 Dose: 100 mg Topiramate (Topamax) 50 mg PO DAILY [facility] Last Admin: 05/02/17 10:35 Dose: 50 mg - Labs Labs: 05/03/17 06:35 05/03/17 06:35 PT 12.0 SECONDS (9.7-12.2) 03/16/17 06:02 INR 1.1 03/16/17 06:02 APTT 33 SECONDS (21-34) 03/16/17 06:02 - Constitutional Appears: No Acute Distress - Head Exam Head Exam: NORMOCEPHALIC - Eye Exam Eye Exam: EOMI - ENT Exam ENT Exam: Mucous Membranes Moist - Respiratory Exam Respiratory Exam: Clear to Ausculation Bilateral - Cardiovascular Exam Cardiovascular Exam: +S1, +S2 - GI/Abdominal Exam GI & Abdominal Exam: Soft, Normal Bowel Sounds - Extremities Exam Extremities Exam: Normal Inspection. absent: Pedal Edema - Neurological Exam Neurological Exam: Alert, Awake - Skin Skin Exam: Warm Assessment and Plan - Assessment and Plan (Free Text) Assessment: Subdural hematoma - Consult Neuro- Dr. Ordaz - Topamax 50mg PO daily, Tylenol 650mg PO Q6h PRN for headaches - partially help his chronic headache. 04/20: Head CT - resolving hematoma (please see full report) 04/19: F/U repeat Head CT as patient's headaches have been worsening 04/17: Patient is still an unsafe discharge because of his inability to ambulate safely and his confusion. 04/16: pending placement, unsafe discharge due to patients confusion and inability to ambulate. Patient is a unsafe discharge because he is unable to ambulate without any assistance from someone. He is very unsteady even with a walker and requires assistance for balance. Pending placement. Status: Acute Chest Pain FAITH negative CXR - right lung base consolidative markings, hilar prominence - no clinical symptoms Status: Acute Chronic Pancreatitis Assessment & Plan: Likely secondary to alcoholism continue Folic acid, multivitamin, and thiamine. Status: Chronic Prophylactic measure Assessment & Plan: Heparin 5000U SC Q12 - C/I due to subdural bleed. Pepcid 20mg PO BID Medical Management per Dr. Derek FRITZ Planning- patient denied from rehab due to question of what is his baseline, patient may be able to qualify for [facility] care, insurance approval pending Per PT- recommend LTC
--- NOTE | 2017-05-03 10:27 | CP.PCM.PN ---
Subjective - Date & Time of Evaluation Date of Evaluation: 05/03/17 Time of Evaluation: 07:00 - Subjective Subjective: clinically same Objective - Vital Signs/Intake and Output Vital Signs (last 24 hours): Temp Pulse Resp BP Pulse Ox 98 F 75 20 124/78 96 05/03/17 07:26 05/03/17 07:26 05/03/17 07:26 05/03/17 07:26 05/03/17 07:26 Intake and Output: 05/03/17 05/03/17 06:59 18:59 Intake Total 750 Balance 750 - Medications Medications: Current Medications Acetaminophen (Tylenol 325mg Tab) 650 mg PO Q6 PRN PRN Reason: Pain, severe (8-10) Last Admin: 05/03/17 06:25 Dose: 650 mg Folic Acid (Folic Acid) 1 mg PO DAILY [facility] Last Admin: 05/02/17 09:41 Dose: 1 mg Multivitamins (Hexavitamin) 1 tab PO DAILY [facility] Last Admin: 05/02/17 09:41 Dose: 1 tab Nicotine (Nicoderm Cq) 1 patch TD DAILY [facility] Last Admin: 05/02/17 09:41 Dose: 1 patch Thiamine HCl (Vitamin B1 Tab) 100 mg PO DAILY [facility] Last Admin: 05/02/17 09:41 Dose: 100 mg Topiramate (Topamax) 50 mg PO DAILY [facility] Last Admin: 05/02/17 10:35 Dose: 50 mg - Labs Labs: 05/03/17 06:35 05/03/17 06:35 PT 12.0 SECONDS (9.7-12.2) 03/16/17 06:02 INR 1.1 03/16/17 06:02 APTT 33 SECONDS (21-34) 03/16/17 06:02 - Constitutional Appears: Well - Head Exam Head Exam: ATRAUMATIC, NORMAL INSPECTION, NORMOCEPHALIC - Eye Exam Eye Exam: EOMI, Normal appearance, PERRL Pupil Exam: NORMAL ACCOMODATION, PERRL - ENT Exam ENT Exam: Mucous Membranes Moist, Normal Exam - Neck Exam Neck Exam: Full ROM, Normal Inspection. absent: Lymphadenopathy - Respiratory Exam Respiratory Exam: Decreased Breath Sounds - Cardiovascular Exam Cardiovascular Exam: REGULAR RHYTHM, +S1, +S2 - GI/Abdominal Exam GI & Abdominal Exam: Soft, Diminished Bowel Sounds - Rectal Exam Rectal Exam: Deferred Assessment and Plan (1) Pneumonia Status: Acute (2) Skull fracture Status: Acute (3) Subarachnoid bleed Status: Acute (4) Subdural hematoma Status: Acute (5) Alcohol abuse Status: Chronic (6) Seizure Status: Resolved (7) Abdominal pain Status: Acute (8) Abrasion Status: Acute (9) Alcohol abuse with intoxication Status: Acute (10) Alcohol intoxication Status: Acute (11) Alcohol withdrawal Status: Acute (12) Alcohol withdrawal seizure Status: Acute (13) Bacteremia Status: Acute (14) Bilateral lower extremity edema Status: Acute (15) Breakthrough seizure Status: Acute (16) Cellulitis Status: Acute (17) Cellulitis of lower extremity Status: Acute (18) Chronic calcific pancreatitis Status: Acute (19) Dehydration Status: Acute (20) Diarrhea Status: Acute (21) Dressing change/suture removal Status: Acute (22) Drug dependence Status: Acute (23) Duodenitis Status: Acute (24) Electrolyte imbalance Status: Acute (25) Elevated alkaline phosphatase level Status: Acute (26) Facial laceration Status: Acute (27) Fever Status: Acute (28) Head trauma Status: Acute (29) Homelessness Status: Acute (30) Hyperphosphatemia Status: Acute (31) Hypokalemia Status: Acute (32) Hypokalemia with normal acid-base balance Status: Acute (33) Hypomagnesemia Status: Acute (34) Hypothermia Status: Acute (35) Low vitamin D level Status: Acute (36) Pancreatic mass Status: Acute (37) Pancreatitis, acute Status: Acute (38) Periapical abscess Status: Acute (39) Pneumonia Status: Acute (40) Prophylactic measure Status: Acute (41) Respiratory failure with hypoxia and hypercapnia Status: Acute (42) Seizure Status: Acute (43) Subdural hemorrhage Status: Acute (44) Thrombocythemia Status: Acute (45) Thrombocytopenia Status: Acute (46) Tobacco abuse Status: Acute (47) Tremors of nervous system Status: Acute (48) Vitamin D deficiency Status: Acute (49) Acute on chronic pancreatitis Status: Chronic (50) Alcohol abuse Status: Chronic (51) Alcohol dependence Status: Chronic (52) Anemia Status: Chronic (53) Anxiety and depression Status: Chronic (54) Aspiration into lower respiratory tract Status: Chronic (55) COPD (chronic obstructive pulmonary disease) Status: Chronic (56) Cholecystitis Status: Chronic (57) Chronic pancreatitis Status: Chronic (58) Depression Status: Chronic (59) Hypertension Status: Chronic (60) Peripheral motor neuropathy Status: Chronic (61) Empyema Status: Suspected - Assessment and Plan (Free Text) Plan: Follow-up neurologist Follow-up IV Continue Keppra Continue thiamine Continue folic acid Continue Pepcid
[2017-05-03] MEDS: Multiple Vitamins Tab PO SCH (10:33)
--- NOTE | 2017-05-03 17:53 | CP.PCM.PN ---
Subjective - Date & Time of Evaluation Date of Evaluation: 05/03/17 Time of Evaluation: 17:53 - Subjective Subjective: Patient seen and examined No events overnight Physical exam Vital signs noted General - no distress Neck - supple CVS - S1-S2 heard Lungs - bilateral rhonchi Abdomen - soft, ND Extremity - no edema Neuro - nonfocal Assessment/plan S/P acute respiratory failureS/P extubated COPD Pneumonia - s/p Abx Rx [facility] Seizures History of alcohol abuse Thiamine/folate Bronchodilators Awaiting placement Continue supportive care DVT/GI prophylaxis Objective - Vital Signs/Intake and Output Vital Signs (last 24 hours): Temp Pulse Resp BP Pulse Ox 98 F 75 20 135/76 96 05/03/17 07:26 05/03/17 07:26 05/03/17 07:26 05/03/17 16:14 05/03/17 07:26 Intake and Output: 05/03/17 05/03/17 06:59 18:59 Intake Total 750 400 Balance 750 400 - Medications Medications: Current Medications Acetaminophen (Tylenol 325mg Tab) 650 mg PO Q6 PRN PRN Reason: Pain, severe (8-10) Last Admin: 05/03/17 14:20 Dose: 650 mg Folic Acid (Folic Acid) 1 mg PO DAILY [facility] Last Admin: 05/03/17 10:33 Dose: 1 mg Multivitamins (Hexavitamin) 1 tab PO DAILY [facility] Last Admin: 05/03/17 10:33 Dose: 1 tab Nicotine (Nicoderm Cq) 1 patch TD DAILY [facility] Last Admin: 05/03/17 10:33 Dose: 1 patch Thiamine HCl (Vitamin B1 Tab) 100 mg PO DAILY [facility] Last Admin: 05/03/17 10:33 Dose: 100 mg Topiramate (Topamax) 50 mg PO DAILY [facility] Last Admin: 05/03/17 10:33 Dose: 50 mg - Labs Labs: 05/03/17 06:35 05/03/17 06:35 PT 12.0 SECONDS (9.7-12.2) 03/16/17 06:02 INR 1.1 03/16/17 06:02 APTT 33 SECONDS (21-34) 03/16/17 06:02
[2017-05-04 06:41] LABS: BASO # 0.1 K/uL (0.0-0.2); BASO % 1.1 % (0.0-2.0); EOS # 0.5 K/uL (0.0-0.7); EOS % 9.5 % (0.0-4.0); HEMATOCRIT 35.8 % (35.0-51.0); LYMPH # 1.8 K/uL (1.0-4.3); LYMPH % 38.2 % (20.0-40.0); MEAN CELL VOLUME 80.1 fL (80.0-94.0); MEAN CORPUSCULAR HEMOGLOBIN 26.2 pg (27.0-31.0); MEAN CORPUSCULAR HGB CONC 32.7 g/dL (33.0-37.0); MEAN PLATELET VOLUME 8.4 fL (7.2-11.7); MONO # 0.3 K/uL (0.0-0.8); MONO % 7.2 % (0.0-10.0); NRBC % 0.1 % (0.0-2.0); RED CELL DISTRIBUTION WIDTH 18.1 % (11.5-14.5); WHITE BLOOD COUNT 4.8 K/uL (4.8-10.8)
[2017-05-04 07:29] LABS: CHLORIDE 103 mmol/L (98-107); POTASSIUM 3.6 mmol/L (3.6-5.2); SODIUM 138 mmol/L (132-148)
[2017-05-04 07:31] LABS: GFR AFRICAN-AMERICAN > 60
[2017-05-04 07:32] LABS: ALB/GLOB RATIO 1.2 (1.0-2.1); ALKALINE PHOSPHATASE 77 U/L (38-126); ALT/SGPT 81 U/L (21-72); AST/SGOT 63 U/L (17-59); BILIRUBIN,TOTAL 0.5 mg/dL (0.2-1.3); BLOOD UREA NITROGEN 10 mg/dL (9-20); CARBON DIOXIDE 21 mmol/L (22-30); TOTAL PROTEIN 7.3 g/dL (6.3-8.3)
[2017-05-04 07:33] LABS: CALCIUM 9.2 mg/dl (8.6-10.4); GLUCOSE,RANDOM 91 mg/dL (75-110)
--- NOTE | 2017-05-04 09:59 | CP.PCM.PN ---
Subjective - Date & Time of Evaluation Date of Evaluation: 05/04/17 Time of Evaluation: 07:00 - Subjective Subjective: clinically same Objective - Vital Signs/Intake and Output Vital Signs (last 24 hours): Temp Pulse Resp BP Pulse Ox 97.7 F 84 20 120/82 98 05/04/17 08:11 05/04/17 08:11 05/04/17 08:11 05/04/17 08:11 05/04/17 08:11 Intake and Output: 05/04/17 05/04/17 06:59 18:59 Intake Total 300 Balance 300 - Medications Medications: Current Medications Acetaminophen (Tylenol 325mg Tab) 650 mg PO Q6 PRN PRN Reason: Pain, severe (8-10) Last Admin: 05/04/17 08:47 Dose: 650 mg Folic Acid (Folic Acid) 1 mg PO DAILY [facility] Last Admin: 05/03/17 10:33 Dose: 1 mg Multivitamins (Hexavitamin) 1 tab PO DAILY [facility] Last Admin: 05/03/17 10:33 Dose: 1 tab Nicotine (Nicoderm Cq) 1 patch TD DAILY [facility] Last Admin: 05/03/17 10:33 Dose: 1 patch Thiamine HCl (Vitamin B1 Tab) 100 mg PO DAILY [facility] Last Admin: 05/03/17 10:33 Dose: 100 mg Topiramate (Topamax) 50 mg PO DAILY [facility] Last Admin: 05/03/17 10:33 Dose: 50 mg - Labs Labs: 05/04/17 06:20 05/04/17 06:20 PT 12.0 SECONDS (9.7-12.2) 03/16/17 06:02 INR 1.1 03/16/17 06:02 APTT 33 SECONDS (21-34) 03/16/17 06:02 - Constitutional Appears: Well - Head Exam Head Exam: ATRAUMATIC, NORMAL INSPECTION, NORMOCEPHALIC - Eye Exam Eye Exam: EOMI, Normal appearance, PERRL Pupil Exam: NORMAL ACCOMODATION, PERRL - ENT Exam ENT Exam: Mucous Membranes Moist, Normal Exam - Neck Exam Neck Exam: Full ROM, Normal Inspection. absent: Lymphadenopathy - Respiratory Exam Respiratory Exam: Decreased Breath Sounds - Cardiovascular Exam Cardiovascular Exam: REGULAR RHYTHM, +S1, +S2 - GI/Abdominal Exam GI & Abdominal Exam: Soft, Diminished Bowel Sounds - Rectal Exam Rectal Exam: Deferred Assessment and Plan (1) Pneumonia Status: Acute (2) Skull fracture Status: Acute (3) Subarachnoid bleed Status: Acute (4) Subdural hematoma Status: Acute (5) Alcohol abuse Status: Chronic (6) Seizure Status: Resolved (7) Abdominal pain Status: Acute (8) Abrasion Status: Acute (9) Alcohol abuse with intoxication Status: Acute (10) Alcohol intoxication Status: Acute (11) Alcohol withdrawal Status: Acute (12) Alcohol withdrawal seizure Status: Acute (13) Bacteremia Status: Acute (14) Bilateral lower extremity edema Status: Acute (15) Breakthrough seizure Status: Acute (16) Cellulitis Status: Acute (17) Cellulitis of lower extremity Status: Acute (18) Chronic calcific pancreatitis Status: Acute (19) Dehydration Status: Acute (20) Diarrhea Status: Acute (21) Dressing change/suture removal Status: Acute (22) Drug dependence Status: Acute (23) Duodenitis Status: Acute (24) Electrolyte imbalance Status: Acute (25) Elevated alkaline phosphatase level Status: Acute (26) Facial laceration Status: Acute (27) Fever Status: Acute (28) Head trauma Status: Acute (29) Homelessness Status: Acute (30) Hyperphosphatemia Status: Acute (31) Hypokalemia Status: Acute (32) Hypokalemia with normal acid-base balance Status: Acute (33) Hypomagnesemia Status: Acute (34) Hypothermia Status: Acute (35) Low vitamin D level Status: Acute (36) Pancreatic mass Status: Acute (37) Pancreatitis, acute Status: Acute (38) Periapical abscess Status: Acute (39) Pneumonia Status: Acute (40) Prophylactic measure Status: Acute (41) Respiratory failure with hypoxia and hypercapnia Status: Acute (42) Seizure Status: Acute (43) Subdural hemorrhage Status: Acute (44) Thrombocythemia Status: Acute (45) Thrombocytopenia Status: Acute (46) Tobacco abuse Status: Acute (47) Tremors of nervous system Status: Acute (48) Vitamin D deficiency Status: Acute (49) Acute on chronic pancreatitis Status: Chronic (50) Alcohol abuse Status: Chronic (51) Alcohol dependence Status: Chronic (52) Anemia Status: Chronic (53) Anxiety and depression Status: Chronic (54) Aspiration into lower respiratory tract Status: Chronic (55) COPD (chronic obstructive pulmonary disease) Status: Chronic (56) Cholecystitis Status: Chronic (57) Chronic pancreatitis Status: Chronic (58) Depression Status: Chronic (59) Hypertension Status: Chronic (60) Peripheral motor neuropathy Status: Chronic (61) Empyema Status: Suspected - Assessment and Plan (Free Text) Plan: Patient is unable to walk continue PT OT awaiting a subacute replacement lab test intermittently
[2017-05-04] MEDS: Multiple Vitamins Tab PO SCH (10:45)
--- NOTE | 2017-05-04 17:40 | CP.PCM.PN ---
Subjective - Date & Time of Evaluation Date of Evaluation: 05/04/17 Time of Evaluation: 17:40 - Subjective Subjective: Patient seen and examined No events overnight Physical exam Vital signs noted General - no distress Neck - supple CVS - S1-S2 heard Lungs - bilateral rhonchi Abdomen - soft, ND Extremity - no edema Neuro - nonfocal Assessment/plan S/P acute respiratory failureS/P extubated COPD Pneumonia - s/p Abx Rx [facility] Seizures History of alcohol abuse Thiamine/folate Bronchodilators Awaiting placement Continue supportive care DVT/GI prophylaxis Objective - Vital Signs/Intake and Output Vital Signs (last 24 hours): Temp Pulse Resp BP Pulse Ox 98.2 F 82 20 112/73 97 05/04/17 16:00 05/04/17 16:00 05/04/17 16:00 05/04/17 16:00 05/04/17 16:00 Intake and Output: 05/04/17 05/04/17 06:59 18:59 Intake Total 300 500 Balance 300 500 - Medications Medications: Current Medications Acetaminophen (Tylenol 325mg Tab) 650 mg PO Q6 PRN PRN Reason: Pain, severe (8-10) Last Admin: 05/04/17 14:43 Dose: 650 mg Folic Acid (Folic Acid) 1 mg PO DAILY [facility] Last Admin: 05/04/17 10:45 Dose: 1 mg Multivitamins (Hexavitamin) 1 tab PO DAILY [facility] Last Admin: 05/04/17 10:45 Dose: 1 tab Nicotine (Nicoderm Cq) 1 patch TD DAILY [facility] Last Admin: 05/04/17 10:45 Dose: 1 patch Thiamine HCl (Vitamin B1 Tab) 100 mg PO DAILY [facility] Last Admin: 05/04/17 10:45 Dose: 100 mg Topiramate (Topamax) 50 mg PO DAILY [facility] Last Admin: 05/04/17 10:45 Dose: 50 mg - Labs Labs: 05/04/17 06:20 05/04/17 06:20 PT 12.0 SECONDS (9.7-12.2) 03/16/17 06:02 INR 1.1 03/16/17 06:02 APTT 33 SECONDS (21-34) 03/16/17 06:02
[2017-05-05 06:27] LABS: BASO % 0.9 % (0.0-2.0); EOS # 0.5 K/uL (0.0-0.7); HEMATOCRIT 36.1 % (35.0-51.0); LYMPH # 1.5 K/uL (1.0-4.3); LYMPH % 29.7 % (20.0-40.0); MEAN CELL VOLUME 80.6 fL (80.0-94.0); MEAN CORPUSCULAR HEMOGLOBIN 25.9 pg (27.0-31.0); MEAN CORPUSCULAR HGB CONC 32.1 g/dL (33.0-37.0); MEAN PLATELET VOLUME 8.4 fL (7.2-11.7); MONO # 0.4 K/uL (0.0-0.8); MONO % 7.2 % (0.0-10.0); RED CELL DISTRIBUTION WIDTH 18.3 % (11.5-14.5); WHITE BLOOD COUNT 5.2 K/uL (4.8-10.8)
[2017-05-05 07:30] LABS: CHLORIDE 102 mmol/L (98-107); POTASSIUM 3.7 mmol/L (3.6-5.2); SODIUM 138 mmol/L (132-148)
[2017-05-05 07:32] LABS: GFR AFRICAN-AMERICAN > 60
[2017-05-05 07:33] LABS: ALB/GLOB RATIO 1.2 (1.0-2.1); ALKALINE PHOSPHATASE 79 U/L (38-126); ALT/SGPT 83 U/L (21-72); AST/SGOT 60 U/L (17-59); BILIRUBIN,TOTAL 0.6 mg/dL (0.2-1.3); BLOOD UREA NITROGEN 10 mg/dL (9-20); CALCIUM 9.4 mg/dl (8.6-10.4); CARBON DIOXIDE 23 mmol/L (22-30); GLUCOSE,RANDOM 131 mg/dL (75-110); TOTAL PROTEIN 7.2 g/dL (6.3-8.3)
[2017-05-05] MEDS: Multiple Vitamins Tab PO SCH (09:33)
--- NOTE | 2017-05-05 20:42 | CP.PCM.PN ---
Subjective - Date & Time of Evaluation Date of Evaluation: 05/05/17 Time of Evaluation: 11:25 - Subjective Subjective: same Objective - Vital Signs/Intake and Output Vital Signs (last 24 hours): Temp Pulse Resp BP Pulse Ox 98.6 F 93 H 20 149/75 95 05/05/17 08:30 05/05/17 08:30 05/05/17 08:30 05/05/17 08:30 05/05/17 08:30 - Medications Medications: Current Medications Acetaminophen (Tylenol 325mg Tab) 650 mg PO Q6 PRN PRN Reason: Pain, severe (8-10) Last Admin: 05/05/17 09:31 Dose: 650 mg Folic Acid (Folic Acid) 1 mg PO DAILY [facility] Last Admin: 05/05/17 09:33 Dose: 1 mg Multivitamins (Hexavitamin) 1 tab PO DAILY [facility] Last Admin: 05/05/17 09:33 Dose: 1 tab Nicotine (Nicoderm Cq) 1 patch TD DAILY [facility] Last Admin: 05/05/17 09:33 Dose: 1 patch Thiamine HCl (Vitamin B1 Tab) 100 mg PO DAILY [facility] Last Admin: 05/05/17 09:33 Dose: 100 mg Topiramate (Topamax) 50 mg PO DAILY [facility] Last Admin: 05/05/17 09:33 Dose: 50 mg - Labs Labs: 05/05/17 06:18 05/05/17 06:18 PT 12.0 SECONDS (9.7-12.2) 03/16/17 06:02 INR 1.1 03/16/17 06:02 APTT 33 SECONDS (21-34) 03/16/17 06:02 - Constitutional Appears: Well - Head Exam Head Exam: ATRAUMATIC, NORMAL INSPECTION, NORMOCEPHALIC - Eye Exam Eye Exam: EOMI, Normal appearance, PERRL Pupil Exam: NORMAL ACCOMODATION, PERRL - ENT Exam ENT Exam: Mucous Membranes Moist, Normal Exam - Respiratory Exam Respiratory Exam: Decreased Breath Sounds, Clear to Ausculation Bilateral - Cardiovascular Exam Cardiovascular Exam: REGULAR RHYTHM, +S1, +S2 - GI/Abdominal Exam GI & Abdominal Exam: Bruit, Soft - Rectal Exam Rectal Exam: Deferred - Exam Exam: Circumcision, NORMAL INSPECTION External exam: NORMAL EXTERNAL EXAM Speculum exam: NORMAL SPECULUM EXAM Bimanual exam: NORMAL BIMANUAL EXAM Assessment and Plan (1) Pneumonia Status: Acute (2) Skull fracture Status: Acute (3) Subarachnoid bleed Status: Acute (4) Subdural hematoma Status: Acute (5) Alcohol abuse Status: Chronic (6) Seizure Status: Resolved (7) Abdominal pain Status: Acute (8) Abrasion Status: Acute (9) Alcohol abuse with intoxication Status: Acute (10) Alcohol intoxication Status: Acute (11) Alcohol withdrawal Status: Acute (12) Alcohol withdrawal seizure Status: Acute (13) Bacteremia Status: Acute (14) Bilateral lower extremity edema Status: Acute (15) Breakthrough seizure Status: Acute (16) Cellulitis Status: Acute (17) Cellulitis of lower extremity Status: Acute (18) Chronic calcific pancreatitis Status: Acute (19) Dehydration Status: Acute (20) Diarrhea Status: Acute (21) Dressing change/suture removal Status: Acute (22) Drug dependence Status: Acute (23) Duodenitis Status: Acute (24) Electrolyte imbalance Status: Acute (25) Elevated alkaline phosphatase level Status: Acute (26) Facial laceration Status: Acute (27) Fever Status: Acute (28) Head trauma Status: Acute (29) Homelessness Status: Acute (30) Hyperphosphatemia Status: Acute (31) Hypokalemia Status: Acute (32) Hypokalemia with normal acid-base balance Status: Acute (33) Hypomagnesemia Status: Acute (34) Hypothermia Status: Acute (35) Low vitamin D level Status: Acute (36) Pancreatic mass Status: Acute (37) Pancreatitis, acute Status: Acute (38) Periapical abscess Status: Acute (39) Pneumonia Status: Acute (40) Prophylactic measure Status: Acute (41) Respiratory failure with hypoxia and hypercapnia Status: Acute (42) Seizure Status: Acute (43) Subdural hemorrhage Status: Acute (44) Thrombocythemia Status: Acute (45) Thrombocytopenia Status: Acute (46) Tobacco abuse Status: Acute (47) Tremors of nervous system Status: Acute (48) Vitamin D deficiency Status: Acute (49) Acute on chronic pancreatitis Status: Chronic (50) Alcohol abuse Status: Chronic (51) Alcohol dependence Status: Chronic (52) Anemia Status: Chronic (53) Anxiety and depression Status: Chronic (54) Aspiration into lower respiratory tract Status: Chronic (55) COPD (chronic obstructive pulmonary disease) Status: Chronic (56) Cholecystitis Status: Chronic (57) Chronic pancreatitis Status: Chronic (58) Depression Status: Chronic (59) Hypertension Status: Chronic (60) Peripheral motor neuropathy Status: Chronic (61) Empyema Status: Suspected - Assessment and Plan (Free Text) Plan: Follow-up neurologist Follow-up IV Continue Keppra Continue thiamine Continue folic acid Continue Pepcid
--- NOTE | 2017-05-06 06:56 | CP.PCM.PN ---
Subjective - Date & Time of Evaluation Date of Evaluation: 05/06/17 Time of Evaluation: 07:00 - Subjective Subjective: clinically same Objective - Vital Signs/Intake and Output Vital Signs (last 24 hours): Temp Pulse Resp BP Pulse Ox 97.3 F L 70 20 123/73 98 05/06/17 00:00 05/06/17 00:00 05/06/17 00:00 05/06/17 00:00 05/06/17 00:00 Intake and Output: 05/05/17 05/06/17 18:59 06:59 Intake Total 120 Balance 120 - Medications Medications: Current Medications Acetaminophen (Tylenol 325mg Tab) 650 mg PO Q6 PRN PRN Reason: Pain, severe (8-10) Last Admin: 05/06/17 04:07 Dose: 650 mg Folic Acid (Folic Acid) 1 mg PO DAILY [facility] Last Admin: 05/05/17 09:33 Dose: 1 mg Multivitamins (Hexavitamin) 1 tab PO DAILY [facility] Last Admin: 05/05/17 09:33 Dose: 1 tab Nicotine (Nicoderm Cq) 1 patch TD DAILY [facility] Last Admin: 05/05/17 09:33 Dose: 1 patch Thiamine HCl (Vitamin B1 Tab) 100 mg PO DAILY [facility] Last Admin: 05/05/17 09:33 Dose: 100 mg Topiramate (Topamax) 50 mg PO DAILY [facility] Last Admin: 05/05/17 09:33 Dose: 50 mg - Labs Labs: 05/05/17 06:18 05/05/17 06:18 PT 12.0 SECONDS (9.7-12.2) 03/16/17 06:02 INR 1.1 03/16/17 06:02 APTT 33 SECONDS (21-34) 03/16/17 06:02 - Constitutional Appears: Well - Head Exam Head Exam: ATRAUMATIC, NORMAL INSPECTION, NORMOCEPHALIC - Eye Exam Eye Exam: EOMI, Normal appearance, PERRL Pupil Exam: NORMAL ACCOMODATION, PERRL - ENT Exam ENT Exam: Mucous Membranes Moist, Normal Exam - Neck Exam Neck Exam: Full ROM, Normal Inspection. absent: Lymphadenopathy - Respiratory Exam Respiratory Exam: Decreased Breath Sounds - Cardiovascular Exam Cardiovascular Exam: REGULAR RHYTHM, +S1, +S2 - GI/Abdominal Exam GI & Abdominal Exam: Diminished Bowel Sounds - Rectal Exam Rectal Exam: Deferred Assessment and Plan (1) Pneumonia Status: Acute (2) Skull fracture Status: Acute (3) Subarachnoid bleed Status: Acute (4) Subdural hematoma Status: Acute (5) Alcohol abuse Status: Chronic (6) Seizure Status: Resolved (7) Abdominal pain Status: Acute (8) Abrasion Status: Acute (9) Alcohol abuse with intoxication Status: Acute (10) Alcohol intoxication Status: Acute (11) Alcohol withdrawal Status: Acute (12) Alcohol withdrawal seizure Status: Acute (13) Bacteremia Status: Acute (14) Bilateral lower extremity edema Status: Acute (15) Breakthrough seizure Status: Acute (16) Cellulitis Status: Acute (17) Cellulitis of lower extremity Status: Acute (18) Chronic calcific pancreatitis Status: Acute (19) Dehydration Status: Acute (20) Diarrhea Status: Acute (21) Dressing change/suture removal Status: Acute (22) Drug dependence Status: Acute (23) Duodenitis Status: Acute (24) Electrolyte imbalance Status: Acute (25) Elevated alkaline phosphatase level Status: Acute (26) Facial laceration Status: Acute (27) Fever Status: Acute (28) Head trauma Status: Acute (29) Homelessness Status: Acute (30) Hyperphosphatemia Status: Acute (31) Hypokalemia Status: Acute (32) Hypokalemia with normal acid-base balance Status: Acute (33) Hypomagnesemia Status: Acute (34) Hypothermia Status: Acute (35) Low vitamin D level Status: Acute (36) Pancreatic mass Status: Acute (37) Pancreatitis, acute Status: Acute (38) Periapical abscess Status: Acute (39) Pneumonia Status: Acute (40) Prophylactic measure Status: Acute (41) Respiratory failure with hypoxia and hypercapnia Status: Acute (42) Seizure Status: Acute (43) Subdural hemorrhage Status: Acute (44) Thrombocythemia Status: Acute (45) Thrombocytopenia Status: Acute (46) Tobacco abuse Status: Acute (47) Tremors of nervous system Status: Acute (48) Vitamin D deficiency Status: Acute (49) Acute on chronic pancreatitis Status: Chronic (50) Alcohol abuse Status: Chronic (51) Alcohol dependence Status: Chronic (52) Anemia Status: Chronic (53) Anxiety and depression Status: Chronic (54) Aspiration into lower respiratory tract Status: Chronic (55) COPD (chronic obstructive pulmonary disease) Status: Chronic (56) Cholecystitis Status: Chronic (57) Chronic pancreatitis Status: Chronic (58) Depression Status: Chronic (59) Hypertension Status: Chronic (60) Peripheral motor neuropathy Status: Chronic (61) Empyema Status: Suspected - Assessment and Plan (Free Text) Plan: Follow-up neurologist Follow-up IV Awaiting placement from insurance Continue Keppra Continue thiamine Continue folic acid Continue Pepcid
[2017-05-06 07:27] LABS: BASO # 0.1 K/uL (0.0-0.2); BASO % 1.1 % (0.0-2.0); EOS # 0.4 K/uL (0.0-0.7); EOS % 7.8 % (0.0-4.0); HEMATOCRIT 36.3 % (35.0-51.0); LYMPH # 1.4 K/uL (1.0-4.3); LYMPH % 29.5 % (20.0-40.0); MEAN CELL VOLUME 81.1 fL (80.0-94.0); MEAN CORPUSCULAR HEMOGLOBIN 26.2 pg (27.0-31.0); MEAN CORPUSCULAR HGB CONC 32.3 g/dL (33.0-37.0); MEAN PLATELET VOLUME 8.5 fL (7.2-11.7); MONO # 0.4 K/uL (0.0-0.8); MONO % 8.2 % (0.0-10.0); RED CELL DISTRIBUTION WIDTH 18.3 % (11.5-14.5); WHITE BLOOD COUNT 4.8 K/uL (4.8-10.8)
[2017-05-06 07:36] LABS: CHLORIDE 106 mmol/L (98-107); POTASSIUM 3.6 mmol/L (3.6-5.2); SODIUM 140 mmol/L (132-148)
[2017-05-06 07:38] LABS: BILIRUBIN,TOTAL 0.5 mg/dL (0.2-1.3); GFR AFRICAN-AMERICAN > 60
[2017-05-06 07:39] LABS: ALB/GLOB RATIO 1.2 (1.0-2.1); ALKALINE PHOSPHATASE 79 U/L (38-126); ALT/SGPT 71 U/L (21-72); AST/SGOT 45 U/L (17-59); BLOOD UREA NITROGEN 11 mg/dL (9-20); CARBON DIOXIDE 22 mmol/L (22-30); GLUCOSE,RANDOM 124 mg/dL (75-110); TOTAL PROTEIN 7.4 g/dL (6.3-8.3)
[2017-05-06 07:40] LABS: CALCIUM 9.4 mg/dl (8.6-10.4)
[2017-05-06] MEDS: Multiple Vitamins Tab PO SCH (09:13)
--- NOTE | 2017-05-06 13:36 | CP.PCM.PN ---
Subjective - Date & Time of Evaluation Date of Evaluation: 05/07/17 Time of Evaluation: 13:35 - Subjective Subjective: Patient seen and examined No events overnight Physical exam Vital signs noted General - no distress Neck - supple CVS - S1-S2 heard Lungs - bilateral rhonchi Abdomen - soft, ND Extremity - no edema Neuro - nonfocal Assessment/plan S/P acute respiratory failureS/P extubated COPD Pneumonia - s/p Abx Rx [facility] Seizures History of alcohol abuse Thiamine/folate Bronchodilators Awaiting placement Continue supportive care DVT/GI prophylaxis Objective - Vital Signs/Intake and Output Vital Signs (last 24 hours): Temp Pulse Resp BP Pulse Ox 98.7 F 86 20 118/81 94 L 05/06/17 08:48 05/06/17 08:48 05/06/17 08:48 05/06/17 08:48 05/06/17 08:48 Intake and Output: 05/06/17 05/06/17 06:59 18:59 Intake Total 120 Balance 120 - Medications Medications: Current Medications Acetaminophen (Tylenol 325mg Tab) 650 mg PO Q6 PRN PRN Reason: Pain, severe (8-10) Last Admin: 05/06/17 10:15 Dose: 650 mg Folic Acid (Folic Acid) 1 mg PO DAILY [facility] Last Admin: 05/06/17 09:13 Dose: 1 mg Multivitamins (Hexavitamin) 1 tab PO DAILY [facility] Last Admin: 05/06/17 09:13 Dose: 1 tab Nicotine (Nicoderm Cq) 1 patch TD DAILY [facility] Last Admin: 05/06/17 09:13 Dose: 1 patch Thiamine HCl (Vitamin B1 Tab) 100 mg PO DAILY [facility] Last Admin: 05/06/17 09:13 Dose: 100 mg Topiramate (Topamax) 50 mg PO DAILY [facility] Last Admin: 05/06/17 09:13 Dose: 50 mg - Labs Labs: 05/06/17 07:17 05/06/17 07:17 PT 12.0 SECONDS (9.7-12.2) 03/16/17 06:02 INR 1.1 03/16/17 06:02 APTT 33 SECONDS (21-34) 03/16/17 06:02
[2017-05-07 06:15] LABS: BASO # 0.1 K/uL (0.0-0.2); BASO % 1.3 % (0.0-2.0); EOS # 0.5 K/uL (0.0-0.7); EOS % 9.6 % (0.0-4.0); HEMATOCRIT 36.1 % (35.0-51.0); MEAN CELL VOLUME 80.9 fL (80.0-94.0); MEAN CORPUSCULAR HEMOGLOBIN 25.9 pg (27.0-31.0); MEAN PLATELET VOLUME 8.7 fL (7.2-11.7); MONO # 0.4 K/uL (0.0-0.8); MONO % 7.4 % (0.0-10.0); RED CELL DISTRIBUTION WIDTH 18.2 % (11.5-14.5); WHITE BLOOD COUNT 4.8 K/uL (4.8-10.8)
[2017-05-07 06:26] LABS: CHLORIDE 100 mmol/L (98-107); POTASSIUM 3.9 mmol/L (3.6-5.2); SODIUM 135 mmol/L (132-148)
[2017-05-07 06:29] LABS: ALB/GLOB RATIO 1.1 (1.0-2.1); ALKALINE PHOSPHATASE 80 U/L (38-126); ALT/SGPT 58 U/L (21-72); AST/SGOT 38 U/L (17-59); BILIRUBIN,TOTAL 0.5 mg/dL (0.2-1.3); BLOOD UREA NITROGEN 14 mg/dL (9-20); CARBON DIOXIDE 21 mmol/L (22-30); GFR AFRICAN-AMERICAN > 60; GLUCOSE,RANDOM 145 mg/dL (75-110); TOTAL PROTEIN 7.5 g/dL (6.3-8.3)
[2017-05-07 06:30] LABS: CALCIUM 9.2 mg/dl (8.6-10.4)
--- NOTE | 2017-05-07 09:26 | CP.PCM.PN ---
Subjective - Date & Time of Evaluation Date of Evaluation: 05/07/17 Objective - Vital Signs/Intake and Output Vital Signs (last 24 hours): Temp Pulse Resp BP Pulse Ox 97.8 F 80 20 121/77 95 05/07/17 07:53 05/07/17 07:53 05/07/17 07:53 05/07/17 07:53 05/07/17 07:53 Intake and Output: 05/07/17 05/07/17 06:59 18:59 Intake Total 730 Balance 730 - Medications Medications: Current Medications Acetaminophen (Tylenol 325mg Tab) 650 mg PO Q6 PRN PRN Reason: Pain, severe (8-10) Last Admin: 05/07/17 05:04 Dose: 650 mg Folic Acid (Folic Acid) 1 mg PO DAILY [facility] Last Admin: 05/06/17 09:13 Dose: 1 mg Multivitamins (Hexavitamin) 1 tab PO DAILY [facility] Last Admin: 05/06/17 09:13 Dose: 1 tab Nicotine (Nicoderm Cq) 1 patch TD DAILY [facility] Last Admin: 05/06/17 09:13 Dose: 1 patch Thiamine HCl (Vitamin B1 Tab) 100 mg PO DAILY [facility] Last Admin: 05/06/17 09:13 Dose: 100 mg Topiramate (Topamax) 50 mg PO DAILY [facility] Last Admin: 05/06/17 09:13 Dose: 50 mg - Labs Labs: 05/07/17 06:00 05/07/17 06:00 PT 12.0 SECONDS (9.7-12.2) 03/16/17 06:02 INR 1.1 03/16/17 06:02 APTT 33 SECONDS (21-34) 03/16/17 06:02
[2017-05-07] MEDS: Multiple Vitamins Tab PO SCH (09:45)
--- NOTE | 2017-05-07 13:05 | CP.PCM.PN ---
Subjective - Date & Time of Evaluation Date of Evaluation: 05/07/17 Time of Evaluation: 13:05 Objective - Vital Signs/Intake and Output Vital Signs (last 24 hours): Temp Pulse Resp BP Pulse Ox 97.8 F 80 20 121/77 95 05/07/17 07:53 05/07/17 07:53 05/07/17 07:53 05/07/17 07:53 05/07/17 07:53 Intake and Output: 05/07/17 05/07/17 06:59 18:59 Intake Total 730 Balance 730 - Medications Medications: Current Medications Acetaminophen (Tylenol 325mg Tab) 650 mg PO Q6 PRN PRN Reason: Pain, severe (8-10) Last Admin: 05/07/17 11:02 Dose: 650 mg Folic Acid (Folic Acid) 1 mg PO DAILY [facility] Last Admin: 05/07/17 09:45 Dose: 1 mg Multivitamins (Hexavitamin) 1 tab PO DAILY [facility] Last Admin: 05/07/17 09:45 Dose: 1 tab Nicotine (Nicoderm Cq) 1 patch TD DAILY [facility] Last Admin: 05/07/17 09:46 Dose: 1 patch Thiamine HCl (Vitamin B1 Tab) 100 mg PO DAILY [facility] Last Admin: 05/07/17 09:45 Dose: 100 mg Topiramate (Topamax) 50 mg PO DAILY [facility] Last Admin: 05/07/17 09:46 Dose: 50 mg - Labs Labs: 05/07/17 06:00 05/07/17 06:00 PT 12.0 SECONDS (9.7-12.2) 03/16/17 06:02 INR 1.1 03/16/17 06:02 APTT 33 SECONDS (21-34) 03/16/17 06:02
[2017-05-07 15:58] VITALS: BP 147/83; PULSE 82; TEMP 97.9; O2SAT 96
[2017-05-07] MEDS ORDERED: Pneumococcal 23-Valent Vaccine IM ONE (16:25)
--- NOTE | 2017-05-07 17:03 | CP.PCM.PN ---
Subjective - Date & Time of Evaluation Date of Evaluation: 05/07/17 Time of Evaluation: 17:03 - Subjective Subjective: Alert. awake, NAD. Objective - Vital Signs/Intake and Output Vital Signs (last 24 hours): Temp Pulse Resp BP Pulse Ox 97.9 F 82 20 147/83 96 05/07/17 15:56 05/07/17 15:56 05/07/17 15:56 05/07/17 15:56 05/07/17 15:56 Intake and Output: 05/07/17 05/07/17 06:59 18:59 Intake Total 730 500 Balance 730 500 - Medications Medications: Current Medications Acetaminophen (Tylenol 325mg Tab) 650 mg PO Q6 PRN PRN Reason: Pain, severe (8-10) Last Admin: 05/07/17 11:02 Dose: 650 mg Folic Acid (Folic Acid) 1 mg PO DAILY [facility] Last Admin: 05/07/17 09:45 Dose: 1 mg Multivitamins (Hexavitamin) 1 tab PO DAILY [facility] Last Admin: 05/07/17 09:45 Dose: 1 tab Nicotine (Nicoderm Cq) 1 patch TD DAILY [facility] Last Admin: 05/07/17 09:46 Dose: 1 patch Thiamine HCl (Vitamin B1 Tab) 100 mg PO DAILY [facility] Last Admin: 05/07/17 09:45 Dose: 100 mg Topiramate (Topamax) 50 mg PO DAILY [facility] Last Admin: 05/07/17 09:46 Dose: 50 mg - Labs Labs: 05/07/17 06:00 05/07/17 06:00 PT 12.0 SECONDS (9.7-12.2) 03/16/17 06:02 INR 1.1 03/16/17 06:02 APTT 33 SECONDS (21-34) 03/16/17 06:02 Assessment and Plan - Assessment and Plan (Free Text) Assessment: Patient is seen and examined. Alert and orientedx3, denies any complaints. Verbalized understanding that he is going to rn long term care facility at [facility] today. D/W DR Marc, agreed with the discharge plan for today.
== END 2017-05-07 18:45 | DRG 533 ==
LOC: C.ER 14:59 → C.9I 17:50 → C.5T 03-23 05:56 → C.3T 04-06 06:53
PROVIDERS: ADMIT Internal Medicine Nephrology; ATTEND Internal Medicine Nephrology
PROC: 5A1955Z Respiratory Ventilation, Greater than 96 Consecutive Hours (ICD-10-PCS; principal; 2017-03-09)
PROC: 0BH17EZ Insertion of Endotracheal Airway into Trachea, Via Natural or Artificial Opening (ICD-10-PCS; 2017-03-09)
DX: S06.5X9A Traumatic subdural hemorrhage with loss of consciousness of unspecified duration, initial encounter (principal); J18.9 Pneumonia, unspecified organism; S06.6X9A Traumatic subarachnoid hemorrhage with loss of consciousness of unspecified duration, initial encounter; R56.9 Unspecified convulsions; J44.0 Chronic obstructive pulmonary disease with (acute) lower respiratory infection; H92.21 Otorrhagia, right ear; K70.30 Alcoholic cirrhosis of liver without ascites; F10.230 Alcohol dependence with withdrawal, uncomplicated; S06.369A Traumatic hemorrhage of cerebrum, unspecified, with loss of consciousness of unspecified duration, initial encounter; S02.19XA Other fracture of base of skull, initial encounter for closed fracture; W19.XXXA Unspecified fall, initial encounter; Z59.0 Homelessness; F17.200 Nicotine dependence, unspecified, uncomplicated; I10 Essential (primary) hypertension; F41.9 Anxiety disorder, unspecified; M19.90 Unspecified osteoarthritis, unspecified site

== ENCOUNTER 2017-07-31 21:19 | Emergency (ER) | payer OTHER ==
[2017-07-31 21:20] VITALS: BMI 26.6
--- NOTE | 2017-07-31 22:50 | C.PDOC ---
History Of Present Illness Patient presents to the ED from detention with complaints of headache and lower back pain. Patient states he fell backwards from his wheel chair and hit his head. Patient remembers event and denies LOC, fever, nausea, or vomiting. - HPI Time Seen by Provider: 07/31/17 22:49 Chief Complaint (Nursing): Trauma History Per: Patient History/Exam Limitations: no limitations Onset/Duration Of Symptoms: Mins Injury Occurred (Timing): Just Before Arrival Location Of Injury: Posterior: Head Severity: Mild Pain Scale Rating Of: 4 Associated Symptoms: Other (headache ) Recent travel outside of the [place]: No Additional History Per: Care Home - Fall Fall:Prior To Injury: Other (Fell backwards in wheel chair ) Past Medical History Reviewed: Historical Data, Nursing Documentation, Vital Signs Vital Signs: Last Vital Signs Temp 98 F 08/01/17 00:51 Pulse 79 08/01/17 00:51 Resp 17 08/01/17 00:51 BP 121/73 08/01/17 00:51 Pulse Ox 98 08/01/17 00:51 - Medical History PMH: Anxiety, Arthritis, COPD, Depression, HTN, Pancreatitis, Pneumonia, Seizures Surgical History: - [facility] Procedures ALCOHOL DETOXIFICATION (07/31/14) DETOXIFICATION SERVICES FOR SUBSTANCE ABUSE TREATMENT (12/02/16) EXCISION OF SMALL INTESTINE, ENDO, DIAGN (12/02/16) INFLUENZA VACCINATION (10/21/13) INJECT/INFUSE ELECTROLYT (05/15/13) INJECT/INFUSE NEC (10/02/14) INSERT INTERCOSTAL CATH (01/22/15) INSERTION OF ENDOTRACHEAL AIRWAY INTO TRACHEA, VIA OPENING (03/09/17) INSERTION OF INFUSION DEV INTO SUP VENA CAVA, PERC APPROACH (12/02/16) LINEAR REP LID LACER (11/07/14) OTHER GROUP THERAPY (06/07/13) RESPIRATORY VENTILATION, GREATER THAN 96 CONSECUTIVE HOURS (03/09/17) TETANUS TOXOID ADMINIST (11/07/14) THORACOSCOPIC DECORTICATION OF LUNG (01/22/15) TRANSFUSE NONAUT PLATELETS IN PERIPH VEIN, PERC (06/29/16) VACCINATION NEC (02/18/15) Family History: States: No Known Family Hx, Unknown Family Hx - Social History Hx Tobacco Use: Yes Hx Alcohol Use: Yes Hx Substance Use: No (DENIED) - Immunization History Hx Tetanus Toxoid Vaccination: No Hx Influenza Vaccination: No Hx Pneumococcal Vaccination: No Review Of Systems Constitutional: Negative for: Fever, Chills Respiratory: Negative for: Shortness of Breath Gastrointestinal: Negative for: Nausea, Vomiting Genitourinary: Negative for: Dysuria, Incontinence Musculoskeletal: Positive for: Back Pain Neurological: Positive for: Headache Physical Exam - Physical Exam Appears: Non-toxic, No Acute Distress Skin: Warm, Dry Head: Tenderness (mild occipital tenderness ), No Laceration, Other (no crepitus ) Eye(s): bilateral: Normal Inspection, PERRL, EOMI Neck: Normal ROM, Supple Chest: Symmetrical, No Deformity Cardiovascular: Rhythm Regular, No Murmur Respiratory: No Rales, No Rhonchi, No Wheezing Gastrointestinal/Abdominal: Soft, No Tenderness, No Distention, No Guarding, No Rebound Back: No Decreased ROM (full ROM), Muscle Spasm, No Paraspinal Tenderness Extremity: Normal ROM, No Tenderness Neurological/Psych: Oriented x3 Gait: Steady ED Course And Treatment O2 Sat by Pulse Oximetry: 96 (room air ) - CT Scan/US Head CT W/O contrast Other Rad Studies (CT/US): Read By Radiologist, Radiology Report Reviewed CT/US Interpretation: IMPRESSION: 1. No intracranial hemorrhage. 2. Nonspecific white matter changes. Lumbar Spine CT W/O contrast Other Rad Studies (CT/US): Read By Radiologist, Radiology Report Reviewed CT/US Interpretation: Impression: 1. No fracture. 2. If back pain persists, consider MRI for further evaluation. Disposition Counseled Patient/Family Regarding: Studies Performed, Diagnosis, Need For Followup - Disposition Referrals: Apolonia Reed MD [Staff Provider] - Disposition: HOME/ ROUTINE Disposition Time: 22:50 Condition: FAIR Instructions: Contusion in Adults (DC), Back Pain (ED) Forms: [facility] (Korean) - Clinical Impression Clinical Impression: Fall, Head contusion, Back contusion - Scribe Statement The provider has reviewed the documentation as recorded by the Scribbrenda Khoury All medical record entries made by the Scribe were at my direction and personally dictated by me. I have reviewed the chart and agree that the record accurately reflects my personal performance of the history, physical exam, medical decision making, and the department course for this patient. I have also personally directed, reviewed, and agree with the discharge instructions and disposition.
--- NOTE | 2017-08-01 00:10 | CT ---
EXAM: CT Head Without Intravenous Contrast CLINICAL HISTORY: 51 years old, male; Pain; Headache; Patient HX: 6; Additional info: Fall TECHNIQUE: Axial computed tomography images of the head/brain without intravenous contrast. All CT scans at this facility use one or more dose reduction techniques, viz.: automated exposure control; ma/kV adjustment per patient size (including targeted exams where dose is matched to indication; i.e. head); or iterative reconstruction technique. Coronal and sagittal reformatted images were created and reviewed. COMPARISON: CT - HEAD W/O CONTRAST 03/21/2016 8:18:02 AM FINDINGS: Brain: [id number] atrophy. No intracranial hemorrhage. No mass. Mild encephalomalacia within LEFT parietal region. Minimal encephalomalacia within LEFT temporal region. Few scattered foci of decreased attenuation within periventricular/subcortical white matter. No definite edema. Ventricles: No hydrocephalus. Bones/joints: No acute fracture. Soft tissues: Unremarkable. Vasculature: Mild atherosclerotic disease of intracranial arteries. Sinuses: No acute sinusitis. Mastoid air cells: No mastoid effusion. Orbits: Unremarkable as visualized. IMPRESSION: 1. No intracranial hemorrhage. 2. Nonspecific white matter changes. 3. Incidental/non-acute findings are described above.
--- NOTE | 2017-08-01 00:16 | CT ---
EXAM: CT Lumbar Spine Without Intravenous Contrast CLINICAL HISTORY: 51 years old, male; Pain; Low back pain; Additional info: Fall TECHNIQUE: Axial computed tomography images of the lumbar spine without intravenous contrast. All CT scans at this facility use one or more dose reduction techniques, viz.: automated exposure control; ma/kV adjustment per patient size (including targeted exams where dose is matched to indication; i.e. head); or iterative reconstruction technique. Coronal and sagittal reformatted images were created and reviewed. COMPARISON: No relevant prior studies available. FINDINGS: Vertebrae: No acute fracture. Chronic L5 pars defects. Degenerative anterolisthesis of L5 on S1. Discs/spinal canal/neural foramina: Early degenerative disc disease within upper and mid lumbar spine. Mild degenerative disc disease within lower lumbar spine. Mild central canal stenosis at L3-L4 level. Neuroforaminal narrowing at L5-S1 level. Soft tissues: Unremarkable. Vasculature: Moderate atherosclerotic disease of aorta and iliac arteries. Pancreas: Multiple calcifications within pancreas compatible with chronic pancreatitis. Pancreatic ductal dilatation. Stomach and bowel: Probable underdistention of sigmoid colon. IMPRESSION: 1. No fracture. 2. If back pain persists, consider MRI for further evaluation. 3. Incidental/non-acute findings are described above.
[2017-08-01 02:27] VITALS: BP 116/70; PULSE 72; RESP 18; TEMP 98.2; O2SAT 99
== END 2017-08-01 02:27 | disposition home or self-care (01) ==
LOC: C.ER 21:19
DX: S00.93XA Contusion of unspecified part of head, initial encounter (principal); S30.0XXA Contusion of lower back and pelvis, initial encounter; W05.0XXA Fall from non-moving wheelchair, initial encounter; Y93.89 Activity, other specified; Y92.129 Unspecified place in nursing home as the place of occurrence of the external cause

== ENCOUNTER 2017-12-23 12:33 | Inpatient (IN) | payer OTHER ==
[2017-12-23 12:34] VITALS: BMI 26.6
--- NOTE | 2017-12-23 13:07 | C.PDOC ---
History Of Present Illness 52 y/o M sent from [facility] for L eyebrow mass x 5 days, erythematous, tender, fluctuant. PMD Dr. Reed notified, instructed transfer to ED for further evaluation. Patient denies significant pain, fever, dyspnea, discharge. Time Seen by Provider: 12/23/17 12:54 Chief Complaint (Nursing): Eye Problem Past Medical History Vital Signs: Last Vital Signs Temp 97.9 F 12/23/17 12:38 Pulse 74 12/23/17 12:38 Resp 19 12/23/17 12:38 BP 133/87 12/23/17 12:38 Pulse Ox 97 12/23/17 13:09 - Medical History PMH: Anemia, Anxiety, Arthritis, COPD, Depression, HTN, Pancreatitis, Pneumonia , Seizures Surgical History: - [facility] Procedures ALCOHOL DETOXIFICATION (07/31/14) DETOXIFICATION SERVICES FOR SUBSTANCE ABUSE TREATMENT (12/02/16) EXCISION OF SMALL INTESTINE, ENDO, DIAGN (12/02/16) INFLUENZA VACCINATION (10/21/13) INJECT/INFUSE ELECTROLYT (05/15/13) INJECT/INFUSE NEC (10/02/14) INSERT INTERCOSTAL CATH (01/22/15) INSERTION OF ENDOTRACHEAL AIRWAY INTO TRACHEA, VIA OPENING (03/09/17) INSERTION OF INFUSION DEV INTO SUP VENA CAVA, PERC APPROACH (12/02/16) LINEAR REP LID LACER (11/07/14) OTHER GROUP THERAPY (06/07/13) RESPIRATORY VENTILATION, GREATER THAN 96 CONSECUTIVE HOURS (03/09/17) TETANUS TOXOID ADMINIST (11/07/14) THORACOSCOPIC DECORTICATION OF LUNG (01/22/15) TRANSFUSE NONAUT PLATELETS IN PERIPH VEIN, PERC (06/29/16) VACCINATION NEC (02/18/15) Family History: States: Unknown Family Hx - Social History Hx Tobacco Use: Yes Hx Alcohol Use: No Hx Substance Use: No (DENIED) - Immunization History Hx Tetanus Toxoid Vaccination: (unk) Hx Influenza Vaccination: Yes Hx Pneumococcal Vaccination: (unk) Review Of Systems Except As Marked, All Systems Reviewed And Found Negative. Constitutional: Negative for: Fever Respiratory: Negative for: Shortness of Breath Physical Exam - Physical Exam Additional Physical Exam Comments: Gen: NAD Head: L eyebrow erythematous, tender fluctuant mass Eyes: PERRL ENT: MMM Neck: Supple Chest: No tenderness CV: Regular rate Lungs: CTA b/l Abd: Soft, NT Neuro: Alert, no focal deficit ED Course And Treatment - Laboratory Results Result Diagrams: 12/23/17 14:05 12/23/17 14:34 O2 Sat by Pulse Oximetry: 97 Medical Decision Making Medical Decision Making: Dr. Reed recommeds surgical consult with surgery repairer controller tester. Disposition Discussed With : Apolonia Reed - Disposition Disposition: HOSPITALIZED Disposition Time: 15:36 Condition: GUARDED Forms: [facility] (Malian) - Clinical Impression Clinical Impression: Facial abscess
[2017-12-23] MEDS ORDERED: Vancomycin 1 gm/NS 200 ml 1 GM/200 ML BAG IVPB STA (13:09)
[2017-12-23] MEDS ORDERED: Piperacill/Tazo 4.5gm in Dex 4.5 GM/100 ML BAG IVPB STA (13:09)
[2017-12-23] MEDS ORDERED: Sodium Chloride 0.9% 1,000 ML IV STA (13:09)
[2017-12-23] MEDS ORDERED: Sodium Chloride 0.9% 1,000 ML ONE (14:00)
[2017-12-23 14:14] LABS: BASO # 0.1 K/uL (0.0-0.2); BASO % 1.2 % (0.0-2.0); EOS # 0.4 K/uL (0.0-0.7); EOS % 6.6 % (0.0-4.0); HEMOGLOBIN 12.4 g/dL (12.0-18.0); LYMPH # 1.7 K/uL (1.0-4.3); LYMPH % 27.7 % (20.0-40.0); MEAN CELL VOLUME 82.8 fL (80.0-94.0); MEAN CORPUSCULAR HEMOGLOBIN 28.6 pg (27.0-31.0); MEAN CORPUSCULAR HGB CONC 34.5 g/dL (33.0-37.0); MEAN PLATELET VOLUME 8.5 fL (7.2-11.7); MONO # 0.4 K/uL (0.0-0.8); MONO % 6.9 % (0.0-10.0); NEUT # 3.5 K/uL (1.8-7.0); NEUT % 57.6 % (50.0-75.0); RBC 4.35 Mil/uL (4.40-5.90); RED CELL DISTRIBUTION WIDTH 15.2 % (11.5-14.5); WHITE BLOOD COUNT 6.1 K/uL (4.8-10.8)
[2017-12-23 14:23] LABS: INR 1.2; PROTHROMBIN TIME 13.2 SECONDS (9.7-12.2)
[2017-12-23 15:04] LABS: ALB/GLOB RATIO 1.1 (1.0-2.1); ALBUMIN 4.6 g/dL (3.5-5.0); ALT/SGPT 31 U/L (21-72); AST/SGOT 38 U/L (17-59); BLOOD UREA NITROGEN 8 mg/dL (9-20); CALCIUM 9.7 mg/dl (8.6-10.4); GFR AFRICAN-AMERICAN > 60; GFR NON-AFRICAN AMERICAN > 60
--- NOTE | 2017-12-23 15:44 | US ---
PROCEDURE: Limited ultrasound examination of the left eyebrow. HISTORY: L eyebrow mass COMPARISON: No prior similar study available for comparison TECHNIQUE: Limited ultrasound examination of the left eyebrow was performed. FINDINGS: There is oval-shaped left eyebrow heterogeneous slightly echogenic lesion demonstrates increased vascularity measures 2 centimeter in the largest longitudinal diameter 1.2 centimeter in the largest AP diameter and 2.2 centimeter transverse diameter. IMPRESSION: Heterogeneous slightly echogenic lesion with increased vascularity at the lefteyebrow.
--- NOTE | 2017-12-23 18:26 | CP.PCM.CON ---
History of Present Illness - History of Present Illness History of Present Illness: General Surgery Dr. Sow 52 y/o M w/ PMHx of EtOH dependence, HTN, COPD, seizures [facility] Pt was brought to the hospital today for soft tissue US of the L superior eye lid. After US, pt was brought to the ED for evaluation and admission. Pt is a poor historian likely 2/2 chronic EtOH use. Pt reports always having some lesion/nodule of the left superior eye lid but never had any issues w/ it. Pt states that ~3days ago pt noticed significant swelling. Pt was started on PO Bactrim as an outpatient w/ no response. Swelling has since increased and pt reports significant drainage. Pt denies F/C, N/V, TORRES, lightheadedness, dizziness, changes in visions. PMHx: see above, Anemia, Anxiety, Arthritis, Depression, Pancreatitis, Pneumonia , falls Meds: reviewed in chart NKDA PSHx: L lung decortication SHx: former smoker x40yrs, previous EtOH dependence; previous marijuana/cocaine use FHx: noncontributory Review of Systems - Review of Systems All systems: reviewed and no additional remarkable complaints except (see HPI) Past Patient History - Infectious Disease Hx of Infectious Diseases: None - Tetanus Immunizations Tetanus Immunization: Unknown - Past Medical History & Family History Past Medical History?: Yes - Past Social History Smoking Status: Former Smoker - CARDIAC Hx Hypertension: Yes - PULMONARY Hx Chronic Obstructive Pulmonary Disease (COPD): Yes Hx Pneumonia: Yes - NEUROLOGICAL Hx Seizures: Yes - HEENT Hx HEENT Problems: No - ENDOCRINE/METABOLIC Hx Endocrine Disorders: No - HEMATOLOGICAL/ONCOLOGICAL Hx Anemia: Yes - INTEGUMENTARY Hx Dermatological Problems: Yes Other/Comment: Stage 2 decubitus both buttocks - MUSCULOSKELETAL/RHEUMATOLOGICAL Hx Arthritis: Yes - GASTROINTESTINAL Hx Pancreatitis: Yes - PSYCHIATRIC Hx Anxiety: Yes Hx Depression: Yes Hx Substance Use: No (DENIED) - SURGICAL HISTORY Hx Surgeries: Yes Other/Comment: left lung surgery - ANESTHESIA Hx Anesthesia: Yes Hx Anesthesia Reactions: No Hx Malignant Hyperthermia: No Meds Allergies/Adverse Reactions: Allergies Allergy/AdvReac Type Severity Reaction Status Date / Time No Known Allergies Allergy Verified 12/23/17 12:46 Physical Exam - Constitutional Appears: Non-toxic, No Acute Distress - Head Exam Head Exam: NORMAL INSPECTION - Eye Exam Eye Exam: EOMI, PERRL Additional comments: L superior eyelid w/ 2cm sphere flutuant lesion w/ erythema purulent drainage expressed - ENT Exam ENT Exam: Mucous Membranes Moist - Respiratory Exam Respiratory Exam: NORMAL BREATHING PATTERN. absent: Accessory Muscle Use, Respiratory Distress - Extremities Exam Additional comments: digital clubbing - Neurological Exam Neurological exam: Alert - Psychiatric Exam Psychiatric exam: Normal Affect, Normal Mood - Skin Skin Exam: Dry, Normal Color, Warm Additional comments: see eye exam Results - Vital Signs Recent Vital Signs: Last Vital Signs Temp 97.9 F 12/23/17 12:38 Pulse 79 12/23/17 16:50 Resp 16 12/23/17 16:50 BP 111/73 12/23/17 16:50 Pulse Ox 97 12/23/17 16:50 - Labs Result Diagrams: 12/23/17 14:05 12/23/17 14:34 Labs: Laboratory Results - last 24 hr 12/23/17 12/23/17 12/23/17 14:05 14:05 14:05 WBC 6.1 RBC 4.35 L Hgb 12.4 Hct 36.0 MCV 82.8 MCH 28.6 MCHC 34.5 RDW 15.2 H Plt Count 196 MPV 8.5 Neut % (Auto) 57.6 Lymph % (Auto) 27.7 Bradley % (Auto) 6.9 Eos % (Auto) 6.6 H Baso % (Auto) 1.2 Neut # (Auto) 3.5 Lymph # (Auto) 1.7 Bradley # (Auto) 0.4 Eos # (Auto) 0.4 Baso # (Auto) 0.1 PT 13.2 H INR 1.2 APTT 38 H Sodium Potassium Chloride Carbon Dioxide Anion Gap BUN Creatinine Est GFR ( Amer) Est GFR (Non-Af Amer) Random Glucose Calcium Total Bilirubin AST ALT Alkaline Phosphatase Total Protein Albumin Globulin Albumin/Globulin Ratio Blood Type O POSITIVE Antibody Screen Negative 12/23/17 14:34 WBC RBC Hgb Hct MCV MCH MCHC RDW Plt Count MPV Neut % (Auto) Lymph % (Auto) Bradley % (Auto) Eos % (Auto) Baso % (Auto) Neut # (Auto) Lymph # (Auto) Bradley # (Auto) Eos # (Auto) Baso # (Auto) PT INR APTT Sodium 133 Potassium 4.1 Chloride 95 L Carbon Dioxide 24 Anion Gap 17 BUN 8 L Creatinine 0.7 L Est GFR ( Amer) > 60 Est GFR (Non-Af Amer) > 60 Random Glucose 80 Calcium 9.7 Total Bilirubin 0.6 AST 38 ALT 31 Alkaline Phosphatase 106 Total Protein 8.7 H Albumin 4.6 Globulin 4.1 H Albumin/Globulin Ratio 1.1 Blood Type Antibody Screen - Imaging and Cardiology soft tissue US Status: Image reviewed by me, Report reviewed by me Assessment & Plan - Assessment and Plan (Free Text) Assessment: 52 y/o M w/ L superior eye lid abscess - warm compressed Q2 - IV Abx - pain management - f/u Ophthalmology recs - cont medical management Pt discussed w/ Dr. Magi Vincent DO PGY2
--- NOTE | 2017-12-23 18:37 | CP.PCM.CON ---
History of Present Illness - History of Present Illness History of Present Illness: Plastic Surgery Dr. Rincon 52 y/o M w/ PMHx of EtOH dependence, HTN, COPD, seizures presents to the ED via [facility]. Pt was brought to the hospital today for soft tissue US of the L superior eye lid. After US, pt was brought to the ED for evaluation and admission. Pt is a poor historian likely 2/2 chronic EtOH use. Pt reports always having some lesion/nodule of the left superior eye lid but never had any issues w/ it. Pt states that ~3days ago pt noticed significant swelling. Pt was started on PO Bactrim as an outpatient w/ no response. Swelling has since increased and pt reports significant drainage. Pt denies F/C, N/V, TORRES, lightheadedness, dizziness, changes in visions. PMHx: see above, Anemia, Anxiety, Arthritis, Depression, Pancreatitis, Pneumonia , falls Meds: reviewed in chart NKDA PSHx: L lung decortication SHx: former smoker x40yrs, previous EtOH dependence; previous marijuana/cocaine use FHx: noncontributory Review of Systems - Review of Systems All systems: reviewed and no additional remarkable complaints except Past Patient History - Infectious Disease Hx of Infectious Diseases: None - Tetanus Immunizations Tetanus Immunization: Unknown - Past Medical History & Family History Past Medical History?: Yes - Past Social History Smoking Status: Former Smoker - CARDIAC Hx Hypertension: Yes - PULMONARY Hx Chronic Obstructive Pulmonary Disease (COPD): Yes Hx Pneumonia: Yes - NEUROLOGICAL Hx Seizures: Yes - HEENT Hx HEENT Problems: No - ENDOCRINE/METABOLIC Hx Endocrine Disorders: No - HEMATOLOGICAL/ONCOLOGICAL Hx Anemia: Yes - INTEGUMENTARY Hx Dermatological Problems: Yes Other/Comment: Stage 2 decubitus both buttocks - MUSCULOSKELETAL/RHEUMATOLOGICAL Hx Arthritis: Yes - GASTROINTESTINAL Hx Pancreatitis: Yes - PSYCHIATRIC Hx Anxiety: Yes Hx Depression: Yes Hx Substance Use: No (DENIED) - SURGICAL HISTORY Hx Surgeries: Yes Other/Comment: left lung surgery - ANESTHESIA Hx Anesthesia: Yes Hx Anesthesia Reactions: No Hx Malignant Hyperthermia: No Meds Allergies/Adverse Reactions: Allergies Allergy/AdvReac Type Severity Reaction Status Date / Time No Known Allergies Allergy Verified 12/23/17 12:46 Physical Exam - Constitutional Appears: Non-toxic, No Acute Distress - Head Exam Head Exam: absent: ATRAUMATIC - Eye Exam Eye Exam: EOMI, PERRL Additional comments: L superior eyelid w/ 2cm sphere flutuant lesion w/ erythema purulent drainage expressed - ENT Exam ENT Exam: Mucous Membranes Moist - Respiratory Exam Respiratory Exam: NORMAL BREATHING PATTERN. absent: Accessory Muscle Use, Respiratory Distress - Extremities Exam Additional comments: digital clubbing - Neurological Exam Neurological exam: Alert - Psychiatric Exam Psychiatric exam: Normal Affect, Normal Mood - Skin Skin Exam: Dry, Warm Results - Vital Signs Recent Vital Signs: Last Vital Signs Temp 97.9 F 12/23/17 12:38 Pulse 79 12/23/17 16:50 Resp 16 12/23/17 16:50 BP 111/73 12/23/17 16:50 Pulse Ox 97 12/23/17 16:50 - Labs Result Diagrams: 12/23/17 14:05 12/23/17 14:34 Labs: Laboratory Results - last 24 hr 12/23/17 12/23/17 12/23/17 14:05 14:05 14:05 WBC 6.1 RBC 4.35 L Hgb 12.4 Hct 36.0 MCV 82.8 MCH 28.6 MCHC 34.5 RDW 15.2 H Plt Count 196 MPV 8.5 Neut % (Auto) 57.6 Lymph % (Auto) 27.7 Talbot % (Auto) 6.9 Eos % (Auto) 6.6 H Baso % (Auto) 1.2 Neut # (Auto) 3.5 Lymph # (Auto) 1.7 [place]bot # (Auto) 0.4 Eos # (Auto) 0.4 Baso # (Auto) 0.1 PT 13.2 H INR 1.2 APTT 38 H Sodium Potassium Chloride Carbon Dioxide Anion Gap BUN Creatinine Est GFR ( Amer) Est GFR (Non-Af Amer) Random Glucose Calcium Total Bilirubin AST ALT Alkaline Phosphatase Total Protein Albumin Globulin Albumin/Globulin Ratio Blood Type O POSITIVE Antibody Screen Negative 12/23/17 14:34 WBC RBC Hgb Hct MCV MCH MCHC RDW Plt Count MPV Neut % (Auto) Lymph % (Auto) [place] % (Auto) Eos % (Auto) Baso % (Auto) Neut # (Auto) Lymph # (Auto) [place] # (Auto) Eos # (Auto) Baso # (Auto) PT INR APTT Sodium 133 Potassium 4.1 Chloride 95 L Carbon Dioxide 24 Anion Gap 17 BUN 8 L Creatinine 0.7 L Est GFR ( Amer) > 60 Est GFR (Non-Af Amer) > 60 Random Glucose 80 Calcium 9.7 Total Bilirubin 0.6 AST 38 ALT 31 Alkaline Phosphatase 106 Total Protein 8.7 H Albumin 4.6 Globulin 4.1 H Albumin/Globulin Ratio 1.1 Blood Type Antibody Screen - Imaging and Cardiology US - soft tissue Status: Image reviewed by me, Report reviewed by me Assessment & Plan - Assessment and Plan (Free Text) Assessment: 52 y/o M w/ L superior eye lid abscess - warm compressed Q2 - IV Abx - pain management - f/u Ophthalmology recs - cont medical management Pt discussed w/ Dr. Sergey Vincent DO PGY2
[2017-12-23] MEDS ORDERED: Magnesium Hydroxide Susp 30 ml UD PO PRN (20:06)
[2017-12-23] MEDS: Piperacill/Tazo 3.375gm in Dex 3.375 GM/50 ML BAG IVPB SCH (22:06)
[2017-12-24] MEDS: Piperacill/Tazo 3.375gm in Dex 3.375 GM/50 ML BAG IVPB SCH ×2 (05:50→14:07)
--- NOTE | 2017-12-24 08:21 | CP.PCM.PN ---
<Celina Tobar - Last Filed: 12/24/17 15:50> Subjective - Date & Time of Evaluation Date of Evaluation: 12/24/17 Time of Evaluation: 07:45 - Subjective Subjective: General surgery progress note for Dr. Sow-Celina Tobar, PGY-1 Pt S & E at bedside. Pt reports continued left eyelid pain & swelling. Denies changes to vision, F & C. Objective - Vital Signs/Intake and Output Vital Signs (last 24 hours): Temp Pulse Resp BP Pulse Ox 97.9 F 71 16 111/74 97 12/24/17 05:51 12/24/17 05:51 12/24/17 05:51 12/24/17 05:51 12/24/17 05:51 - Medications Medications: Current Medications Acetaminophen (Tylenol 325mg Tab) 650 mg PO Q6 PRN PRN Reason: Pain, Mild (1-3) Acetaminophen/Butalbital/Caffeine (Fioricet) 1 tab PO Q4H PRN PRN Reason: Migraine headache Duloxetine HCl (Cymbalta) 30 mg PO HS [facility] Last Admin: 12/23/17 22:13 Dose: 30 mg Enoxaparin Sodium (Lovenox) 40 mg SC DAILY [facility] Folic Acid (Folic Acid) 1 mg PO DAILY [facility] Home Med (Ubidecarenone [Coenzyme Q-10]) 400 mg PO DAILY [facility] Piperacillin Sod/Tazobactam Sod (Zosyn 3.375 Gm Iv Premix) 3.375 gm in 50 mls @ 200 mls/hr IVPB Q8H [facility] Last Admin: 12/24/17 05:50 Dose: 200 mls/hr Vancomycin HCl 1 gm/ Sodium (Chloride) 250 mls @ 166.7 mls/hr IVPB Q24H [facility] Magnesium Hydroxide (Milk Of Magnesia) 30 ml PO HS PRN PRN Reason: Constipation Multivitamins (Hexavitamin) 1 tab PO DAILY [facility] Nicotine (Nicoderm Cq) 1 patch TD DAILY [facility] Pantoprazole Sodium (Protonix Ec Tab) 40 mg PO DAILY [facility] Sertraline HCl (Zoloft) 25 mg PO DAILY [facility] Thiamine HCl (Vitamin B1 Tab) 100 mg PO DAILY [facility] Topiramate (Topamax) 50 mg PO DAILY [facility] Tramadol HCl (Ultram) 50 mg PO Q8 PRN PRN Reason: pain Zolpidem Tartrate (Ambien) 5 mg PO HS [facility] Last Admin: 12/23/17 22:13 Dose: 5 mg - Labs Labs: 12/23/17 14:05 12/23/17 14:34 PT 13.2 SECONDS (9.7-12.2) H 12/23/17 14:05 INR 1.2 12/23/17 14:05 APTT 38 SECONDS (21-34) H 12/23/17 14:05 - Constitutional Appears: Non-toxic - Head Exam Head Exam: absent: NORMAL INSPECTION Additional comments: Left eyelid with erythema, swelling, tenderness to palpation, scant purulent drainage from skin opening, dried blood over skin opening - ENT Exam ENT Exam: Mucous Membranes Moist, Normal Exam - Neck Exam Neck Exam: Full ROM, Normal Inspection - Respiratory Exam Respiratory Exam: NORMAL BREATHING PATTERN - Cardiovascular Exam Cardiovascular Exam: REGULAR RHYTHM, +S1, +S2 - Extremities Exam Extremities Exam: Normal Inspection - Neurological Exam Neurological Exam: Alert, Awake, Oriented x3 - Psychiatric Exam Psychiatric exam: Normal Affect, Normal Mood - Skin Skin Exam: Dry, Erythema (left eyelid), Warm. absent: Intact (left eyelid with superficial skin opening), Normal Color Assessment and Plan - Assessment and Plan (Free Text) Assessment: 52M w/L superior eyelid abscess Plan: warm compresses Q2H Cont IV Abx Cont pain mgmt FU ophthalmology recs Further mgmt as per primary team No general surgery intervention at this time Please re-consult as needed Will ALPHONSE attending Ekaterina, PGY-1 <Ritchie Sow B - Last Filed: 12/26/17 23:47> Objective - Vital Signs/Intake and Output Vital Signs (last 24 hours): Temp Pulse Resp BP Pulse Ox 98.1 F 63 20 124/73 96 12/26/17 23:20 12/26/17 23:20 12/26/17 23:20 12/26/17 23:20 12/26/17 23:20 Intake and Output: 12/26/17 12/27/17 18:59 06:59 Intake Total 600 Balance 600 - Medications Medications: Current Medications Acetaminophen (Tylenol 325mg Tab) 650 mg PO Q6 PRN PRN Reason: Pain, Mild (1-3) Acetaminophen/Butalbital/Caffeine (Fioricet) 1 tab PO Q4H PRN PRN Reason: Migraine headache Last Admin: 12/26/17 21:50 Dose: 1 tab Duloxetine HCl (Cymbalta) 30 mg PO HS [facility] Last Admin: 12/26/17 21:50 Dose: 30 mg Enoxaparin Sodium (Lovenox) 40 mg SC DAILY [facility] Last Admin: 12/26/17 09:34 Dose: 40 mg Folic Acid (Folic Acid) 1 mg PO DAILY [facility] Last Admin: 12/26/17 09:35 Dose: 1 mg Vancomycin/Sodium Chloride (Vancomycin 1 Gm/Ns 200 Ml) 1 gm in 200 mls @ 133.333 mls/hr IVPB Q24H [facility] Stop: 12/29/17 15:31 Last Admin: 12/26/17 14:33 Dose: 133.333 mls/hr Piperacillin Sod/Tazobactam Sod (Zosyn 4.5 Gm Iv Premix) 4.5 gm in 100 mls @ 200 mls/hr IVPB Q8H [facility] Last Admin: 12/26/17 20:05 Dose: 200 mls/hr Magnesium Hydroxide (Milk Of Magnesia) 30 ml PO HS PRN PRN Reason: Constipation Multivitamins (Hexavitamin) 1 tab PO DAILY [facility] Last Admin: 12/26/17 09:35 Dose: 1 tab Nicotine (Nicoderm Cq) 1 patch TD DAILY [facility] Last Admin: 12/26/17 09:34 Dose: 1 patch Pantoprazole Sodium (Protonix Ec Tab) 40 mg PO DAILY [facility] Last Admin: 12/26/17 09:35 Dose: 40 mg Sertraline HCl (Zoloft) 25 mg PO DAILY [facility] Last Admin: 12/26/17 09:35 Dose: 25 mg Thiamine HCl (Vitamin B1 Tab) 100 mg PO DAILY [facility] Last Admin: 12/26/17 09:35 Dose: 100 mg Topiramate (Topamax) 50 mg PO DAILY [facility] Last Admin: 12/26/17 09:35 Dose: 50 mg Tramadol HCl (Ultram) 50 mg PO Q8 PRN PRN Reason: pain Last Admin: 12/26/17 14:30 Dose: 50 mg Zolpidem Tartrate (Ambien) 5 mg PO HS [facility] Last Admin: 12/26/17 21:50 Dose: 5 mg - Labs Labs: 12/26/17 08:22 12/26/17 08:22 PT 13.2 SECONDS (9.7-12.2) H 12/23/17 14:05 INR 1.2 12/23/17 14:05 APTT 38 SECONDS (21-34) H 12/23/17 14:05 Attending/Attestation - Attestation I have personally seen and examined this patient.: Yes I have fully participated in the care of the patient.: Yes I have reviewed all pertinent clinical information, including history, physical exam and plan: Yes Notes (Text): Pt was seen and examined at bedside Agree with above note and assessment Plastic surgery consult appreciated We will sign off Plan d.w pt and primary team.
[2017-12-24 08:33] LABS: BASO # 0.1 K/uL (0.0-0.2); BASO % 1.2 % (0.0-2.0); EOS # 0.4 K/uL (0.0-0.7); EOS % 6.3 % (0.0-4.0); HEMOGLOBIN 13.5 g/dL (12.0-18.0); LYMPH # 0.9 K/uL (1.0-4.3); LYMPH % 16.3 % (20.0-40.0); MEAN CELL VOLUME 83.6 fL (80.0-94.0); MEAN CORPUSCULAR HEMOGLOBIN 28.6 pg (27.0-31.0); MEAN CORPUSCULAR HGB CONC 34.2 g/dL (33.0-37.0); MEAN PLATELET VOLUME 8.1 fL (7.2-11.7); MONO # 0.4 K/uL (0.0-0.8); MONO % 6.6 % (0.0-10.0); NEUT % 69.6 % (50.0-75.0); RBC 4.71 Mil/uL (4.40-5.90); RED CELL DISTRIBUTION WIDTH 15.4 % (11.5-14.5); WHITE BLOOD COUNT 5.7 K/uL (4.8-10.8)
[2017-12-24 08:52] LABS: ALB/GLOB RATIO 1.1 (1.0-2.1); ALT/SGPT 40 U/L (21-72); AST/SGOT 31 U/L (17-59); BLOOD UREA NITROGEN 9 mg/dL (9-20); CALCIUM 9.5 mg/dl (8.6-10.4); GFR AFRICAN-AMERICAN > 60; GFR NON-AFRICAN AMERICAN > 60
--- NOTE | 2017-12-24 09:50 | CP.PCM.PN ---
Subjective - Date & Time of Evaluation Date of Evaluation: 12/24/17 Time of Evaluation: 07:30 - Subjective Subjective: Plastic Surgery- Dr. Rincon Pt S&E at bedside this AM in the ED. Warm compresses on Left eye. active prulent drainage from the eyelid. No new complaitns. Denies F/C CP/SOB N/V/D Objective - Vital Signs/Intake and Output Vital Signs (last 24 hours): Temp Pulse Resp BP Pulse Ox 97.9 F 71 16 111/74 97 12/24/17 05:51 12/24/17 05:51 12/24/17 05:51 12/24/17 05:51 12/24/17 05:51 - Medications Medications: Current Medications Acetaminophen (Tylenol 325mg Tab) 650 mg PO Q6 PRN PRN Reason: Pain, Mild (1-3) Acetaminophen/Butalbital/Caffeine (Fioricet) 1 tab PO Q4H PRN PRN Reason: Migraine headache Duloxetine HCl (Cymbalta) 30 mg PO HS [facility] Last Admin: 12/23/17 22:13 Dose: 30 mg Enoxaparin Sodium (Lovenox) 40 mg SC DAILY [facility] Folic Acid (Folic Acid) 1 mg PO DAILY [facility] Piperacillin Sod/Tazobactam Sod (Zosyn 3.375 Gm Iv Premix) 3.375 gm in 50 mls @ 200 mls/hr IVPB Q8H [facility] Last Admin: 12/24/17 05:50 Dose: 200 mls/hr Vancomycin HCl 1 gm/ Sodium (Chloride) 250 mls @ 166.7 mls/hr IVPB Q24H [facility] Magnesium Hydroxide (Milk Of Magnesia) 30 ml PO HS PRN PRN Reason: Constipation Multivitamins (Hexavitamin) 1 tab PO DAILY [facility] Nicotine (Nicoderm Cq) 1 patch TD DAILY [facility] Pantoprazole Sodium (Protonix Ec Tab) 40 mg PO DAILY [facility] Sertraline HCl (Zoloft) 25 mg PO DAILY [facility] Thiamine HCl (Vitamin B1 Tab) 100 mg PO DAILY [facility] Topiramate (Topamax) 50 mg PO DAILY [facility] Tramadol HCl (Ultram) 50 mg PO Q8 PRN PRN Reason: pain Zolpidem Tartrate (Ambien) 5 mg PO HS [facility] Last Admin: 12/23/17 22:13 Dose: 5 mg - Labs Labs: 12/24/17 08:29 12/24/17 08:29 PT 13.2 SECONDS (9.7-12.2) H 12/23/17 14:05 INR 1.2 12/23/17 14:05 APTT 38 SECONDS (21-34) H 12/23/17 14:05 - Constitutional Appears: Non-toxic, No Acute Distress - Eye Exam Additional comments: PEERL Left eye purulent drainage - Cardiovascular Exam Cardiovascular Exam: +S1, +S2. absent: Bradycardia, Tachycardia - Neurological Exam Neurological Exam: Alert, Awake - Skin Skin Exam: Intact, Warm Assessment and Plan - Assessment and Plan (Free Text) Assessment: 52 y/o M w/ L superior eye lid abscess actively draining Plan: - recommend c/s Opthomology - no acute plastics surgical intervention at ths time - warm compresses q2 hrs - IV Abx - pain control PRN - keep area clean and dry - discussed w/ Dr. Sergey Swift PGY1
--- NOTE | 2017-12-24 09:54 | CP.PCM.PN ---
Subjective - Date & Time of Evaluation Date of Evaluation: 12/24/17 Time of Evaluation: 09:45 - Subjective Subjective: PROGRESS NOTE. HONG HAZEL. Pt seen and examined at bedside. No acute distress. No events overnight. Pt still with some eyelid pain and swelling. No fevers, chills, vomiting, diarrhea. Ophtho eval pending. Objective - Vital Signs/Intake and Output Vital Signs (last 24 hours): Temp Pulse Resp BP Pulse Ox 97.9 F 71 16 111/74 97 12/24/17 05:51 12/24/17 05:51 12/24/17 05:51 12/24/17 05:51 12/24/17 05:51 - Medications Medications: Current Medications Acetaminophen (Tylenol 325mg Tab) 650 mg PO Q6 PRN PRN Reason: Pain, Mild (1-3) Acetaminophen/Butalbital/Caffeine (Fioricet) 1 tab PO Q4H PRN PRN Reason: Migraine headache Duloxetine HCl (Cymbalta) 30 mg PO HS [facility] Last Admin: 12/23/17 22:13 Dose: 30 mg Enoxaparin Sodium (Lovenox) 40 mg SC DAILY [facility] Folic Acid (Folic Acid) 1 mg PO DAILY [facility] Piperacillin Sod/Tazobactam Sod (Zosyn 3.375 Gm Iv Premix) 3.375 gm in 50 mls @ 200 mls/hr IVPB Q8H [facility] Last Admin: 12/24/17 05:50 Dose: 200 mls/hr Vancomycin HCl 1 gm/ Sodium (Chloride) 250 mls @ 166.7 mls/hr IVPB Q24H [facility] Magnesium Hydroxide (Milk Of Magnesia) 30 ml PO HS PRN PRN Reason: Constipation Multivitamins (Hexavitamin) 1 tab PO DAILY [facility] Nicotine (Nicoderm Cq) 1 patch TD DAILY [facility] Pantoprazole Sodium (Protonix Ec Tab) 40 mg PO DAILY [facility] Sertraline HCl (Zoloft) 25 mg PO DAILY [facility] Thiamine HCl (Vitamin B1 Tab) 100 mg PO DAILY [facility] Topiramate (Topamax) 50 mg PO DAILY [facility] Tramadol HCl (Ultram) 50 mg PO Q8 PRN PRN Reason: pain Zolpidem Tartrate (Ambien) 5 mg PO HS [facility] Last Admin: 12/23/17 22:13 Dose: 5 mg - Labs Labs: 12/24/17 08:29 12/24/17 08:29 PT 13.2 SECONDS (9.7-12.2) H 12/23/17 14:05 INR 1.2 12/23/17 14:05 APTT 38 SECONDS (21-34) H 12/23/17 14:05 - Constitutional Appears: Non-toxic, No Acute Distress - Head Exam Head Exam: ATRAUMATIC, NORMOCEPHALIC. absent: NORMAL INSPECTION Additional comments: left superior eyelid abscess with redness and swelling - Eye Exam Eye Exam: EOMI - ENT Exam ENT Exam: Mucous Membranes Moist - Neck Exam Neck Exam: Full ROM, Normal Inspection - Respiratory Exam Respiratory Exam: absent: Respiratory Distress - Cardiovascular Exam Cardiovascular Exam: +S1, +S2 - GI/Abdominal Exam GI & Abdominal Exam: Soft, Normal Bowel Sounds. absent: Tenderness - Extremities Exam Extremities Exam: Full ROM, Normal Inspection - Back Exam Back Exam: NORMAL INSPECTION - Neurological Exam Neurological Exam: Alert, Awake, CN II-XII Intact - Psychiatric Exam Psychiatric exam: Normal Affect, Normal Mood - Skin Skin Exam: Dry, Intact, Normal Color, Warm Assessment and Plan - Assessment and Plan (Free Text) Assessment: This is a 52 yo male with 1. Eyelid abscess -plastic surgery consult. recs appreciated. DR PICEKRING. -general sx consult. recs appreciated. DR YIP -ophtho consult. recs appreciated. DR. ARIZMENDI -IV vanco -IV zosyn -ultram for pain 2. hx of migraines -continue topiramate -continue fioricet -continue tylenol for pain 3. hx of depression -continue zoloft -continue duloxetine 4. hx of insomnia -continue ambien 5. GI/DVT ppx -continue protonix -continue lovenox discussed with dr. hazel.
[2017-12-24] MEDS ORDERED: UBIDECARENONE 400 MG PO SCH ×2 (10:00)
[2017-12-24] MEDS: Multiple Vitamins Tab PO SCH (10:32)
[2017-12-24] MEDS: Pantoprazole 40 mg EC Tab PO SCH (10:32)
[2017-12-24] MEDS: Enoxaparin 40 mg Syringe SC SCH (10:32)
[2017-12-24] MEDS: Apap-Butalbital-Caffeine 325-50-40mg Tab PO PRN (10:32)
[2017-12-24] MEDS: Vancomycin 1 gm/NS 200 ml 1 GM/200 ML BAG IVPB SCH (15:19)
--- NOTE | 2017-12-24 17:46 | CP.PCM.HP ---
Past Patient History - Infectious Disease Hx of Infectious Diseases: None - Tetanus Immunizations Tetanus Immunization: Unknown - Past Medical History & Family History Past Medical History?: Yes - Past Social History Smoking Status: Former Smoker - CARDIAC Hx Hypertension: Yes - PULMONARY Hx Chronic Obstructive Pulmonary Disease (COPD): Yes Hx Pneumonia: Yes - NEUROLOGICAL Hx Seizures: Yes - HEENT Hx HEENT Problems: No - ENDOCRINE/METABOLIC Hx Endocrine Disorders: No - HEMATOLOGICAL/ONCOLOGICAL Hx Anemia: Yes - INTEGUMENTARY Hx Dermatological Problems: Yes Other/Comment: Stage 2 decubitus both buttocks - MUSCULOSKELETAL/RHEUMATOLOGICAL Hx Falls: No - GASTROINTESTINAL Hx Pancreatitis: Yes - PSYCHIATRIC Hx Anxiety: Yes Hx Depression: Yes Hx Substance Use: No (DENIED) - SURGICAL HISTORY Hx Surgeries: Yes Other/Comment: left lung surgery - ANESTHESIA Hx Anesthesia: Yes Hx Anesthesia Reactions: No Hx Malignant Hyperthermia: No Meds Allergies/Adverse Reactions: Allergies Allergy/AdvReac Type Severity Reaction Status Date / Time No Known Allergies Allergy Verified 12/23/17 12:46 Physical Exam - Constitutional Appears: Well - Head Exam Head Exam: ATRAUMATIC, NORMAL INSPECTION, NORMOCEPHALIC - Eye Exam Eye Exam: EOMI, Normal appearance, PERRL Pupil Exam: NORMAL ACCOMODATION, PERRL - ENT Exam ENT Exam: Mucous Membranes Moist, Normal Exam - Neck Exam Neck exam: Positive for: Normal Inspection - Respiratory Exam Respiratory Exam: Decreased Breath Sounds - Cardiovascular Exam Cardiovascular Exam: REGULAR RHYTHM, +S1, +S2 - GI/Abdominal Exam GI & Abdominal Exam: Diminished Bowel Sounds, Soft - Rectal Exam Rectal Exam: Deferred Results - Vital Signs Recent Vital Signs: Last Vital Signs Temp 97.9 F 12/24/17 05:51 Pulse 72 12/24/17 15:43 Resp 16 12/24/17 15:43 BP 112/76 12/24/17 15:43 Pulse Ox 98 12/24/17 15:43 - Labs Result Diagrams: 12/24/17 08:29 12/24/17 08:29 Labs: Laboratory Results - last 24 hr 12/24/17 12/24/17 08:29 08:29 WBC 5.7 RBC 4.71 Hgb 13.5 Hct 39.4 MCV 83.6 MCH 28.6 MCHC 34.2 RDW 15.4 H Plt Count 196 MPV 8.1 Neut % (Auto) 69.6 Lymph % (Auto) 16.3 L [place] % (Auto) 6.6 Eos % (Auto) 6.3 H Baso % (Auto) 1.2 Neut # (Auto) 4.0 Lymph # (Auto) 0.9 L [place] # (Auto) 0.4 Eos # (Auto) 0.4 Baso # (Auto) 0.1 Sodium 138 Potassium 4.1 Chloride 103 Carbon Dioxide 21 L Anion Gap 18 BUN 9 Creatinine 0.8 Est GFR ( Amer) > 60 Est GFR (Non-Af Amer) > 60 Random Glucose 116 H Calcium 9.5 Total Bilirubin 0.6 AST 31 ALT 40 Alkaline Phosphatase 93 Total Protein 7.7 Albumin 4.0 Globulin 3.7 Albumin/Globulin Ratio 1.1 Assessment & Plan - Assessment and Plan (Free Text) Plan: 1. Eyelid abscess -plastic surgery consult. recs appreciated. DR PICKERING. -general sx consult. recs appreciated. DR YIP -ophtho consult. recs appreciated. DR. ARIZMENDI -GOLDEN vanco -IV zosyn -ultram for pain 2. hx of migraines -continue topiramate -continue fioricet -continue tylenol for pain 3. hx of depression -continue zoloft -continue duloxetine 4. hx of insomnia -continue ambien 5. GI/DVT ppx -continue protonix -continue lovenox
[2017-12-24] MEDS: Piperacillin/Tazobact 3.375 GM in Sodium Chloride 0.9% 100 ML IVPB SCH (20:52)
[2017-12-25] MEDS: Piperacillin/Tazobact 3.375 GM in Sodium Chloride 0.9% 100 ML IVPB SCH ×2 (04:01→11:35)
--- NOTE | 2017-12-25 08:07 | CP.PCM.CON ---
History of Present Illness - History of Present Illness History of Present Illness: 52 y/o M w/ PMHx of EtOH dependence, HTN, COPD, seizures presents to the ED via [facility]. Pt was brought to the hospital for soft tissue US of the L brow. After US, pt was brought to the ED for evaluation and admission. Pt is a poor historian likely 2/2 chronic EtOH use. Pt reports chronic presence of lesion/ nodule of the left superior eye lid but ~3days prior to admission pt noticed significant swelling. Pt was started on PO Bactrim as an outpatient w/ no response. Swelling has since increased with significant drainage. Pt denies pain , fever, change, in vision. PMHx: see above, Anemia, Anxiety, Arthritis, Depression, Pancreatitis, Pneumonia , falls Meds: reviewed in chart NKDA PSHx: L lung decortication SHx: former smoker x40yrs, previous EtOH dependence; previous marijuana/cocaine use FHx: noncontributory Past Patient History - Infectious Disease Hx of Infectious Diseases: None - Tetanus Immunizations Tetanus Immunization: Unknown - Past Medical History & Family History Past Medical History?: Yes - Past Social History Smoking Status: Former Smoker - CARDIAC Hx Hypertension: Yes - PULMONARY Hx Chronic Obstructive Pulmonary Disease (COPD): Yes Hx Pneumonia: Yes - NEUROLOGICAL Hx Seizures: Yes - HEENT Hx HEENT Problems: No - ENDOCRINE/METABOLIC Hx Endocrine Disorders: No - HEMATOLOGICAL/ONCOLOGICAL Hx Anemia: Yes - INTEGUMENTARY Hx Dermatological Problems: Yes Other/Comment: Stage 2 decubitus both buttocks - MUSCULOSKELETAL/RHEUMATOLOGICAL Hx Falls: No - GASTROINTESTINAL Hx Pancreatitis: Yes - PSYCHIATRIC Hx Anxiety: Yes Hx Depression: Yes Hx Substance Use: No (DENIED) - SURGICAL HISTORY Hx Surgeries: Yes Other/Comment: left lung surgery - ANESTHESIA Hx Anesthesia: Yes Hx Anesthesia Reactions: No Hx Malignant Hyperthermia: No Meds Allergies/Adverse Reactions: Allergies Allergy/AdvReac Type Severity Reaction Status Date / Time No Known Allergies Allergy Verified 12/23/17 12:46 - Medications Medications: Current Medications Acetaminophen (Tylenol 325mg Tab) 650 mg PO Q6 PRN PRN Reason: Pain, Mild (1-3) Acetaminophen/Butalbital/Caffeine (Fioricet) 1 tab PO Q4H PRN PRN Reason: Migraine headache Last Admin: 12/24/17 10:32 Dose: 1 tab Duloxetine HCl (Cymbalta) 30 mg PO HS [facility] Last Admin: 12/24/17 21:04 Dose: 30 mg Enoxaparin Sodium (Lovenox) 40 mg SC DAILY [facility] Last Admin: 12/24/17 10:32 Dose: 40 mg Folic Acid (Folic Acid) 1 mg PO DAILY [facility] Last Admin: 12/24/17 10:32 Dose: 1 mg Vancomycin/Sodium Chloride (Vancomycin 1 Gm/Ns 200 Ml) 1 gm in 200 mls @ 133.333 mls/hr IVPB Q24H [facility] Stop: 12/29/17 15:31 Last Admin: 12/24/17 15:19 Dose: 133.333 mls/hr Piperacillin Sod/Tazobactam (Sod 3.375 gm/ Sodium Chloride) 100 mls @ 200 mls/ hr IVPB Q6H [facility] Last Admin: 12/25/17 04:01 Dose: 200 mls/hr Magnesium Hydroxide (Milk Of Magnesia) 30 ml PO HS PRN PRN Reason: Constipation Multivitamins (Hexavitamin) 1 tab PO DAILY [facility] Last Admin: 12/24/17 10:32 Dose: 1 tab Nicotine (Nicoderm Cq) 1 patch TD DAILY [facility] Last Admin: 12/24/17 10:32 Dose: 1 patch Pantoprazole Sodium (Protonix Ec Tab) 40 mg PO DAILY [facility] Last Admin: 12/24/17 10:32 Dose: 40 mg Sertraline HCl (Zoloft) 25 mg PO DAILY [facility] Last Admin: 12/24/17 10:32 Dose: 25 mg Thiamine HCl (Vitamin B1 Tab) 100 mg PO DAILY [facility] Last Admin: 12/24/17 10:32 Dose: 100 mg Topiramate (Topamax) 50 mg PO DAILY [facility] Tramadol HCl (Ultram) 50 mg PO Q8 PRN PRN Reason: pain Last Admin: 12/24/17 21:04 Dose: 50 mg Zolpidem Tartrate (Ambien) 5 mg PO HS [facility] Last Admin: 12/24/17 21:05 Dose: 5 mg Physical Exam - Head Exam Additional comments: 2.5 cm fluctuant left brow mass, ulcerated, with mild tenderness to palpation - Eye Exam Eye Exam: EOMI, PERRL Additional comments: Va 20/30 OU near No APD EOMs full Soft to palpation OU Conj white and quiet OU Cornea clear OU AC D/Q OU No proptosis Results - Vital Signs Recent Vital Signs: Last Vital Signs Temp 97.8 F 12/25/17 07:16 Pulse 69 12/25/17 07:16 Resp 20 12/25/17 07:16 BP 108/69 12/25/17 07:16 Pulse Ox 96 12/25/17 07:16 - Labs Result Diagrams: 12/24/17 08:29 12/24/17 08:29 Labs: Laboratory Results - last 24 hr 12/24/17 12/24/17 08:29 08:29 WBC 5.7 RBC 4.71 Hgb 13.5 Hct 39.4 MCV 83.6 MCH 28.6 MCHC 34.2 RDW 15.4 H Plt Count 196 MPV 8.1 Neut % (Auto) 69.6 Lymph % (Auto) 16.3 L [place] % (Auto) 6.6 Eos % (Auto) 6.3 H Baso % (Auto) 1.2 Neut # (Auto) 4.0 Lymph # (Auto) 0.9 L [place] # (Auto) 0.4 Eos # (Auto) 0.4 Baso # (Auto) 0.1 Sodium 138 Potassium 4.1 Chloride 103 Carbon Dioxide 21 L Anion Gap 18 BUN 9 Creatinine 0.8 Est GFR ( Amer) > 60 Est GFR (Non-Af Amer) > 60 Random Glucose 116 H Calcium 9.5 Total Bilirubin 0.6 AST 31 ALT 40 Alkaline Phosphatase 93 Total Protein 7.7 Albumin 4.0 Globulin 3.7 Albumin/Globulin Ratio 1.1 Assessment & Plan (1) Abscess of eyebrow Assessment and Plan: Continue IV antibiotics Vanc/Zosyn for total 48-72 hours, recommend ID involvement for appropriate abx coverage. If improving can transition to po abx If no improvement or worsening would need soft tissue imaging to determine extent of involvement via MRI and appreciate plastics/surg involvement for consideration I+D Notably no intra/shannon ocular involvement appreciated Status: Acute
--- NOTE | 2017-12-25 09:50 | CP.PCM.PN ---
Subjective - Date & Time of Evaluation Date of Evaluation: 12/25/17 Time of Evaluation: 09:45 - Subjective Subjective: Progress note. Attending: DR HONG HAZEL Pt seen and examined at bedside. No acute distress. No events overnight. Does not report pain at site. Denies fevers, chills, vomiting, diarrhea. Objective - Vital Signs/Intake and Output Vital Signs (last 24 hours): Temp Pulse Resp BP Pulse Ox 97.8 F 69 20 108/69 96 12/25/17 07:16 12/25/17 07:16 12/25/17 07:16 12/25/17 07:16 12/25/17 07:16 Intake and Output: 12/25/17 12/25/17 06:59 18:59 Intake Total 300 Balance 300 - Medications Medications: Current Medications Acetaminophen (Tylenol 325mg Tab) 650 mg PO Q6 PRN PRN Reason: Pain, Mild (1-3) Acetaminophen/Butalbital/Caffeine (Fioricet) 1 tab PO Q4H PRN PRN Reason: Migraine headache Last Admin: 12/24/17 10:32 Dose: 1 tab Duloxetine HCl (Cymbalta) 30 mg PO HS [facility] Last Admin: 12/24/17 21:04 Dose: 30 mg Enoxaparin Sodium (Lovenox) 40 mg SC DAILY [facility] Last Admin: 12/24/17 10:32 Dose: 40 mg Folic Acid (Folic Acid) 1 mg PO DAILY [facility] Last Admin: 12/24/17 10:32 Dose: 1 mg Vancomycin/Sodium Chloride (Vancomycin 1 Gm/Ns 200 Ml) 1 gm in 200 mls @ 133.333 mls/hr IVPB Q24H [facility] Stop: 12/29/17 15:31 Last Admin: 12/24/17 15:19 Dose: 133.333 mls/hr Piperacillin Sod/Tazobactam (Sod 3.375 gm/ Sodium Chloride) 100 mls @ 200 mls/ hr IVPB Q6H [facility] Last Admin: 12/25/17 04:01 Dose: 200 mls/hr Magnesium Hydroxide (Milk Of Magnesia) 30 ml PO HS PRN PRN Reason: Constipation Multivitamins (Hexavitamin) 1 tab PO DAILY [facility] Last Admin: 12/24/17 10:32 Dose: 1 tab Nicotine (Nicoderm Cq) 1 patch TD DAILY [facility] Last Admin: 12/24/17 10:32 Dose: 1 patch Pantoprazole Sodium (Protonix Ec Tab) 40 mg PO DAILY [facility] Last Admin: 12/24/17 10:32 Dose: 40 mg Sertraline HCl (Zoloft) 25 mg PO DAILY [facility] Last Admin: 12/24/17 10:32 Dose: 25 mg Thiamine HCl (Vitamin B1 Tab) 100 mg PO DAILY [facility] Last Admin: 12/24/17 10:32 Dose: 100 mg Topiramate (Topamax) 50 mg PO DAILY [facility] Tramadol HCl (Ultram) 50 mg PO Q8 PRN PRN Reason: pain Last Admin: 12/24/17 21:04 Dose: 50 mg Zolpidem Tartrate (Ambien) 5 mg PO HS [facility] Last Admin: 12/24/17 21:05 Dose: 5 mg - Labs Labs: 12/24/17 08:29 12/24/17 08:29 PT 13.2 SECONDS (9.7-12.2) H 12/23/17 14:05 INR 1.2 12/23/17 14:05 APTT 38 SECONDS (21-34) H 12/23/17 14:05 - Constitutional Appears: Non-toxic, No Acute Distress, Unkempt - Head Exam Head Exam: ATRAUMATIC, NORMAL INSPECTION, NORMOCEPHALIC - Eye Exam Eye Exam: EOMI, PERRL. absent: Normal appearance Pupil Exam: PERRL Additional comments: abscess over left eyebrow, no drainage currently - ENT Exam ENT Exam: Mucous Membranes Moist - Neck Exam Neck Exam: Full ROM - Respiratory Exam Respiratory Exam: NORMAL BREATHING PATTERN. absent: Respiratory Distress - Cardiovascular Exam Cardiovascular Exam: +S1, +S2 - GI/Abdominal Exam GI & Abdominal Exam: Soft, Normal Bowel Sounds. absent: Tenderness - Extremities Exam Extremities Exam: Full ROM, Normal Inspection - Back Exam Back Exam: NORMAL INSPECTION - Neurological Exam Neurological Exam: Alert, Awake, Oriented x3 - Psychiatric Exam Psychiatric exam: Normal Affect, Normal Mood - Skin Skin Exam: Dry, Intact, Normal Color, Warm Assessment and Plan - Assessment and Plan (Free Text) Assessment: This is a 52 yo male with 1. Eyelid abscess -plastic surgery consult. recs appreciated. DR PICKERING. -general sx consult. recs appreciated. DR YIP -ophtho consult. recs appreciated. DR. ARIZMENDI/ DR. JUAREZ is covering -IV vanco -IV zosyn -ultram for pain -will get ID consult with DR BUTTS. recs appreciated. -brain MRI pending 2. hx of migraines -continue topiramate -continue fioricet -continue tylenol for pain 3. hx of depression -continue zoloft -continue duloxetine 4. hx of insomnia -continue ambien 5. GI/DVT ppx -continue protonix -continue lovenox -PT evaluation discussed with dr. hazel.
--- NOTE | 2017-12-25 11:10 | CP.PCM.CON ---
History of Present Illness - History of Present Illness History of Present Illness: left upper lid cellulitis may need drainage Review of Systems - Review of Systems All systems: reviewed and no additional remarkable complaints except Past Patient History - Infectious Disease Hx of Infectious Diseases: None - Tetanus Immunizations Tetanus Immunization: Unknown - Past Medical History & Family History Past Medical History?: Yes - Past Social History Smoking Status: Former Smoker - CARDIAC Hx Hypertension: Yes - PULMONARY Hx Chronic Obstructive Pulmonary Disease (COPD): Yes Hx Pneumonia: Yes - NEUROLOGICAL Hx Seizures: Yes - HEENT Hx HEENT Problems: No - ENDOCRINE/METABOLIC Hx Endocrine Disorders: No - HEMATOLOGICAL/ONCOLOGICAL Hx Anemia: Yes - INTEGUMENTARY Hx Dermatological Problems: Yes Other/Comment: Stage 2 decubitus both buttocks - MUSCULOSKELETAL/RHEUMATOLOGICAL Hx Falls: No - GASTROINTESTINAL Hx Pancreatitis: Yes - PSYCHIATRIC Hx Anxiety: Yes Hx Depression: Yes Hx Substance Use: No (DENIED) - SURGICAL HISTORY Hx Surgeries: Yes Other/Comment: left lung surgery - ANESTHESIA Hx Anesthesia: Yes Hx Anesthesia Reactions: No Hx Malignant Hyperthermia: No Meds Allergies/Adverse Reactions: Allergies Allergy/AdvReac Type Severity Reaction Status Date / Time No Known Allergies Allergy Verified 12/23/17 12:46 - Medications Medications: Current Medications Acetaminophen (Tylenol 325mg Tab) 650 mg PO Q6 PRN PRN Reason: Pain, Mild (1-3) Acetaminophen/Butalbital/Caffeine (Fioricet) 1 tab PO Q4H PRN PRN Reason: Migraine headache Last Admin: 12/24/17 10:32 Dose: 1 tab Duloxetine HCl (Cymbalta) 30 mg PO HS [facility] Last Admin: 12/24/17 21:04 Dose: 30 mg Enoxaparin Sodium (Lovenox) 40 mg SC DAILY [facility] Last Admin: 12/24/17 10:32 Dose: 40 mg Folic Acid (Folic Acid) 1 mg PO DAILY [facility] Last Admin: 12/24/17 10:32 Dose: 1 mg Vancomycin/Sodium Chloride (Vancomycin 1 Gm/Ns 200 Ml) 1 gm in 200 mls @ 133.333 mls/hr IVPB Q24H [facility] Stop: 12/29/17 15:31 Last Admin: 12/24/17 15:19 Dose: 133.333 mls/hr Piperacillin Sod/Tazobactam (Sod 3.375 gm/ Sodium Chloride) 100 mls @ 200 mls/ hr IVPB Q6H [facility] Last Admin: 12/25/17 04:01 Dose: 200 mls/hr Magnesium Hydroxide (Milk Of Magnesia) 30 ml PO HS PRN PRN Reason: Constipation Multivitamins (Hexavitamin) 1 tab PO DAILY [facility] Last Admin: 12/24/17 10:32 Dose: 1 tab Nicotine (Nicoderm Cq) 1 patch TD DAILY [facility] Last Admin: 12/24/17 10:32 Dose: 1 patch Pantoprazole Sodium (Protonix Ec Tab) 40 mg PO DAILY [facility] Last Admin: 12/24/17 10:32 Dose: 40 mg Sertraline HCl (Zoloft) 25 mg PO DAILY [facility] Last Admin: 12/24/17 10:32 Dose: 25 mg Thiamine HCl (Vitamin B1 Tab) 100 mg PO DAILY [facility] Last Admin: 12/24/17 10:32 Dose: 100 mg Topiramate (Topamax) 50 mg PO DAILY [facility] Tramadol HCl (Ultram) 50 mg PO Q8 PRN PRN Reason: pain Last Admin: 12/24/17 21:04 Dose: 50 mg Zolpidem Tartrate (Ambien) 5 mg PO HS [facility] Last Admin: 12/24/17 21:05 Dose: 5 mg Physical Exam - Constitutional Appears: Chronically Ill - Head Exam Head Exam: absent: NORMAL INSPECTION - Eye Exam Eye Exam: Periorbital swelling, PERRL. absent: Scleral icterus - ENT Exam ENT Exam: Mucous Membranes Dry - Neck Exam Neck exam: Negative for: Lymphadenopathy - Respiratory Exam Respiratory Exam: Decreased Breath Sounds - Cardiovascular Exam Cardiovascular Exam: REGULAR RHYTHM - GI/Abdominal Exam GI & Abdominal Exam: Normal Bowel Sounds - Rectal Exam Rectal Exam: Deferred - Exam Exam: NORMAL INSPECTION - Extremities Exam Extremities exam: Negative for: pedal edema Results - Vital Signs Recent Vital Signs: Last Vital Signs Temp 97.8 F 12/25/17 07:16 Pulse 69 12/25/17 07:16 Resp 20 12/25/17 07:16 BP 108/69 12/25/17 07:16 Pulse Ox 96 12/25/17 07:16 - Labs Result Diagrams: 12/24/17 08:29 12/24/17 08:29 Assessment & Plan (1) Abscess of eyebrow Status: Acute (2) Facial abscess Status: Acute - Assessment and Plan (Free Text) Assessment: iv rx/ drainage await culture
[2017-12-25 11:22] LABS: BASO # 0.1 K/uL (0.0-0.2); BASO % 1.4 % (0.0-2.0); EOS # 0.4 K/uL (0.0-0.7); EOS % 9.3 % (0.0-4.0); HEMOGLOBIN 13.1 g/dL (12.0-18.0); LYMPH # 1.3 K/uL (1.0-4.3); MEAN CELL VOLUME 82.5 fL (80.0-94.0); MEAN CORPUSCULAR HEMOGLOBIN 28.2 pg (27.0-31.0); MEAN CORPUSCULAR HGB CONC 34.2 g/dL (33.0-37.0); MEAN PLATELET VOLUME 8.5 fL (7.2-11.7); MONO # 0.3 K/uL (0.0-0.8); MONO % 6.8 % (0.0-10.0); NEUT % 49.5 % (50.0-75.0); RBC 4.64 Mil/uL (4.40-5.90); WHITE BLOOD COUNT 4.1 K/uL (4.8-10.8)
[2017-12-25] MEDS: Multiple Vitamins Tab PO SCH (11:33)
[2017-12-25] MEDS: Pantoprazole 40 mg EC Tab PO SCH (11:33)
[2017-12-25] MEDS: Enoxaparin 40 mg Syringe SC SCH (11:33)
[2017-12-25 11:34] LABS: ALT/SGPT 38 U/L (21-72); AST/SGOT 25 U/L (17-59); BLOOD UREA NITROGEN 7 mg/dL (9-20); CALCIUM 9.5 mg/dl (8.6-10.4); GFR AFRICAN-AMERICAN > 60; GFR NON-AFRICAN AMERICAN > 60; MAGNESIUM 1.6 mg/dL (1.6-2.3)
[2017-12-25] MEDS: Apap-Butalbital-Caffeine 325-50-40mg Tab PO PRN (11:34)
--- NOTE | 2017-12-25 16:38 | CP.PCM.PN ---
Subjective - Date & Time of Evaluation Date of Evaluation: 12/25/17 Time of Evaluation: 11:20 - Subjective Subjective: clinically same Objective - Vital Signs/Intake and Output Vital Signs (last 24 hours): Temp Pulse Resp BP Pulse Ox 97.7 F 67 20 127/92 H 95 12/25/17 15:59 12/25/17 15:59 12/25/17 15:59 12/25/17 15:59 12/25/17 15:59 Intake and Output: 12/25/17 12/25/17 06:59 18:59 Intake Total 300 Balance 300 - Medications Medications: Current Medications Acetaminophen (Tylenol 325mg Tab) 650 mg PO Q6 PRN PRN Reason: Pain, Mild (1-3) Acetaminophen/Butalbital/Caffeine (Fioricet) 1 tab PO Q4H PRN PRN Reason: Migraine headache Last Admin: 12/25/17 11:34 Dose: 1 tab Duloxetine HCl (Cymbalta) 30 mg PO HS [facility] Last Admin: 12/24/17 21:04 Dose: 30 mg Enoxaparin Sodium (Lovenox) 40 mg SC DAILY [facility] Last Admin: 12/25/17 11:33 Dose: 40 mg Folic Acid (Folic Acid) 1 mg PO DAILY [facility] Last Admin: 12/25/17 11:35 Dose: 1 mg Vancomycin/Sodium Chloride (Vancomycin 1 Gm/Ns 200 Ml) 1 gm in 200 mls @ 133.333 mls/hr IVPB Q24H [facility] Stop: 12/29/17 15:31 Last Admin: 12/24/17 15:19 Dose: 133.333 mls/hr Piperacillin Sod/Tazobactam Sod (Zosyn 4.5 Gm Iv Premix) 4.5 gm in 100 mls @ 200 mls/hr IVPB Q8H [facility] Magnesium Hydroxide (Milk Of Magnesia) 30 ml PO HS PRN PRN Reason: Constipation Multivitamins (Hexavitamin) 1 tab PO DAILY [facility] Last Admin: 12/25/17 11:33 Dose: 1 tab Nicotine (Nicoderm Cq) 1 patch TD DAILY [facility] Last Admin: 12/25/17 11:34 Dose: 1 patch Pantoprazole Sodium (Protonix Ec Tab) 40 mg PO DAILY [facility] Last Admin: 12/25/17 11:33 Dose: 40 mg Sertraline HCl (Zoloft) 25 mg PO DAILY [facility] Last Admin: 12/25/17 11:33 Dose: 25 mg Thiamine HCl (Vitamin B1 Tab) 100 mg PO DAILY [facility] Last Admin: 12/25/17 11:33 Dose: 100 mg Topiramate (Topamax) 50 mg PO DAILY [facility] Last Admin: 12/25/17 11:34 Dose: 50 mg Tramadol HCl (Ultram) 50 mg PO Q8 PRN PRN Reason: pain Last Admin: 12/24/17 21:04 Dose: 50 mg Zolpidem Tartrate (Ambien) 5 mg PO HS [facility] Last Admin: 12/24/17 21:05 Dose: 5 mg - Labs Labs: 12/25/17 11:04 12/25/17 11:04 PT 13.2 SECONDS (9.7-12.2) H 12/23/17 14:05 INR 1.2 12/23/17 14:05 APTT 38 SECONDS (21-34) H 12/23/17 14:05 - Constitutional Appears: Well - Head Exam Head Exam: ATRAUMATIC, NORMAL INSPECTION, NORMOCEPHALIC - Eye Exam Eye Exam: EOMI, Normal appearance, PERRL Pupil Exam: NORMAL ACCOMODATION, PERRL - ENT Exam ENT Exam: Mucous Membranes Moist, Normal Exam - Neck Exam Neck Exam: Full ROM, Normal Inspection. absent: Lymphadenopathy - Respiratory Exam Respiratory Exam: Decreased Breath Sounds - Cardiovascular Exam Cardiovascular Exam: REGULAR RHYTHM, +S1, +S2 - GI/Abdominal Exam GI & Abdominal Exam: Soft, Diminished Bowel Sounds - Rectal Exam Rectal Exam: Deferred
[2017-12-25] MEDS ORDERED: Gadodiamide 287 MG/ML VIAL (15ML) IV ONE (17:37)
[2017-12-25] MEDS: Vancomycin 1 gm/NS 200 ml 1 GM/200 ML BAG IVPB SCH (19:45)
[2017-12-25] MEDS: Piperacill/Tazo 4.5gm in Dex 4.5 GM/100 ML BAG IVPB SCH (21:25)
[2017-12-26] MEDS: Piperacill/Tazo 4.5gm in Dex 4.5 GM/100 ML BAG IVPB SCH ×3 (05:13→20:05)
[2017-12-26 08:29] LABS: BASO # 0.1 K/uL (0.0-0.2); BASO % 1.3 % (0.0-2.0); EOS # 0.4 K/uL (0.0-0.7); EOS % 9.3 % (0.0-4.0); HEMOGLOBIN 12.7 g/dL (12.0-18.0); LYMPH # 1.5 K/uL (1.0-4.3); LYMPH % 32.1 % (20.0-40.0); MEAN CELL VOLUME 83.9 fL (80.0-94.0); MEAN CORPUSCULAR HEMOGLOBIN 28.4 pg (27.0-31.0); MEAN CORPUSCULAR HGB CONC 33.8 g/dL (33.0-37.0); MEAN PLATELET VOLUME 8.3 fL (7.2-11.7); MONO # 0.3 K/uL (0.0-0.8); MONO % 7.3 % (0.0-10.0); NEUT # 2.4 K/uL (1.8-7.0); NRBC % 0.1 % (0.0-2.0); RBC 4.48 Mil/uL (4.40-5.90); RED CELL DISTRIBUTION WIDTH 15.6 % (11.5-14.5); WHITE BLOOD COUNT 4.8 K/uL (4.8-10.8)
[2017-12-26 08:54] LABS: ALB/GLOB RATIO 1.2 (1.0-2.1); ALT/SGPT 26 U/L (21-72); AST/SGOT 20 U/L (17-59); BLOOD UREA NITROGEN 11 mg/dL (9-20); CALCIUM 9.5 mg/dl (8.6-10.4); GFR AFRICAN-AMERICAN > 60; GFR NON-AFRICAN AMERICAN > 60
[2017-12-26] MEDS: Enoxaparin 40 mg Syringe SC SCH (09:34)
[2017-12-26] MEDS: Pantoprazole 40 mg EC Tab PO SCH (09:35)
[2017-12-26] MEDS: Multiple Vitamins Tab PO SCH (09:35)
[2017-12-26] MEDS: Apap-Butalbital-Caffeine 325-50-40mg Tab PO PRN ×3 (09:36→21:50)
--- NOTE | 2017-12-26 10:00 | MRI ---
PROCEDURE: MRI of the brain dated 12/25/2017 HISTORY: Facial abscess COMPARISON: N comparison made with CT scan brain dated 07/31/2017. TECHNIQUE: Multiplanar, multisequence MR images of the brain were obtained with and without intravenous contrast enhancement. FINDINGS: HEMORRHAGE: No acute parenchymal, subarachnoid nor extra-axial hemorrhage. Questionable hemosiderin deposition as detailed below DWI: No evidence of acute or subacute infarcts seen on diffusion imaging. BRAIN PARENCHYMA: Re- demonstrated are chronic partially cystic encephalomalacia changes left parieto-occipital and temporoparietal watershed zone with what appears to represent a cortical surface changes of laminar necrosis and possibly some residual hemosiderin. . There is two small focal areas of dark T2 signal in the left mid frontal cortex adjacent to the sylvian fissure that may represent small hemosiderin deposits. Smaller focal area of encephalomalacia also seen in the right occipito parietal region as well. . Rule out sequela of ischemia or old trauma. There is associated ex vacuo dilatation of the left occipital , left atrium and temporal horns. Additionally, mild diffuse/confluent chronic periventricular white matter ischemic changes with multiple more discrete chronic appearing lacunar type infarcts scattered about both cerebral hemispheres. . Moderate generalized volume loss. ENHANCEMENT: There are no focal areas of abnormal parenchymal nor meningeal enhancement. VENTRICLES: No obstructive hydrocephalus not withstanding ex vacuo dilatation of the left occipital horn as well as atrium and temporal horns. . CRANIUM: Unremarkable. ORBITS: Small focal area of soft tissue swelling -cellulitis left periorbital -supraorbital region with a small tiny apparent central fluid collection most likely representing an abscess. . Clinical correlation recommended. . No evidence of postseptal extension PARANASAL SINUSES/MASTOIDS: Small focal area polypoid like mucosal thickening and a mucous retention cyst formation left maxillary sinus. The remaining visualized paranasal and mastoid air complexes are otherwise clear. VASCULAR SYSTEM: Visualized major vascular flow voids at skull base patent. OTHER FINDINGS: None . IMPRESSION: Mild left periorbital/supraorbital localized cellulitis with tiny abscess. No evidence of postseptal extension. No acute intracranial hemorrhage however there may be small hemosiderin deposits in the left frontal region and possibly along cortical surface of the left posterior temporoparietal and occipital parietal chronic encephalomalacia . No evidence of infarct. Re- demonstrated are chronic appearing encephalomalacia changes left posterior temporoparietal and occipito parietal watershed zones. Associated ex vacuo dilatation of the left occipital , left atrium and temporal horns. Small area of encephalomalacia right posterior occipital parietal region. Mild chronic white matter ischemic changes. Moderate generalized volume loss. Note that preliminary report was provided by overnight radiology service.
[2017-12-26] MEDS ORDERED: Potassium Chloride 20 mEq/15 ml LIQ UD PO ONE (10:56)
--- NOTE | 2017-12-26 12:14 | CP.PCM.PN ---
<Ketan Soria - Last Filed: 12/26/17 12:15> Subjective - Date & Time of Evaluation Date of Evaluation: 12/26/17 Time of Evaluation: 12:10 - Subjective Subjective: Progress note. Attending: DR Hazel. Pt seen and examined at bedside. No acute distress. No pain or drainage. No fevers, chills, vomiting, diarrhea. ROS limited as pt is alcoholic and has trouble answering questions. Objective - Vital Signs/Intake and Output Vital Signs (last 24 hours): Temp Pulse Resp BP Pulse Ox 97.9 F 66 20 109/70 96 12/26/17 07:59 12/26/17 07:59 12/26/17 07:59 12/26/17 07:59 12/26/17 07:59 - Medications Medications: Current Medications Acetaminophen (Tylenol 325mg Tab) 650 mg PO Q6 PRN PRN Reason: Pain, Mild (1-3) Acetaminophen/Butalbital/Caffeine (Fioricet) 1 tab PO Q4H PRN PRN Reason: Migraine headache Last Admin: 12/26/17 09:36 Dose: 1 tab Duloxetine HCl (Cymbalta) 30 mg PO HS [facility] Last Admin: 12/25/17 21:37 Dose: 30 mg Enoxaparin Sodium (Lovenox) 40 mg SC DAILY [facility] Last Admin: 12/26/17 09:34 Dose: 40 mg Folic Acid (Folic Acid) 1 mg PO DAILY [facility] Last Admin: 12/26/17 09:35 Dose: 1 mg Vancomycin/Sodium Chloride (Vancomycin 1 Gm/Ns 200 Ml) 1 gm in 200 mls @ 133.333 mls/hr IVPB Q24H [facility] Stop: 12/29/17 15:31 Last Admin: 12/25/17 19:45 Dose: 133.333 mls/hr Piperacillin Sod/Tazobactam Sod (Zosyn 4.5 Gm Iv Premix) 4.5 gm in 100 mls @ 200 mls/hr IVPB Q8H [facility] Last Admin: 12/26/17 05:13 Dose: 200 mls/hr Magnesium Hydroxide (Milk Of Magnesia) 30 ml PO HS PRN PRN Reason: Constipation Multivitamins (Hexavitamin) 1 tab PO DAILY [facility] Last Admin: 12/26/17 09:35 Dose: 1 tab Nicotine (Nicoderm Cq) 1 patch TD DAILY [facility] Last Admin: 12/26/17 09:34 Dose: 1 patch Pantoprazole Sodium (Protonix Ec Tab) 40 mg PO DAILY [facility] Last Admin: 12/26/17 09:35 Dose: 40 mg Sertraline HCl (Zoloft) 25 mg PO DAILY [facility] Last Admin: 12/26/17 09:35 Dose: 25 mg Thiamine HCl (Vitamin B1 Tab) 100 mg PO DAILY [facility] Last Admin: 12/26/17 09:35 Dose: 100 mg Topiramate (Topamax) 50 mg PO DAILY [facility] Last Admin: 12/26/17 09:35 Dose: 50 mg Tramadol HCl (Ultram) 50 mg PO Q8 PRN PRN Reason: pain Last Admin: 12/26/17 06:40 Dose: 50 mg Zolpidem Tartrate (Ambien) 5 mg PO HS [facility] Last Admin: 12/25/17 21:25 Dose: 5 mg - Labs Labs: 12/26/17 08:22 12/26/17 08:22 PT 13.2 SECONDS (9.7-12.2) H 12/23/17 14:05 INR 1.2 12/23/17 14:05 APTT 38 SECONDS (21-34) H 12/23/17 14:05 - Constitutional Appears: Non-toxic, No Acute Distress, Unkempt - Head Exam Head Exam: ATRAUMATIC, NORMOCEPHALIC. absent: NORMAL INSPECTION Additional comments: eyelid abscess present, no drainage. - Eye Exam Eye Exam: EOMI - ENT Exam ENT Exam: Mucous Membranes Moist - Neck Exam Neck Exam: Full ROM, Normal Inspection - Respiratory Exam Respiratory Exam: NORMAL BREATHING PATTERN. absent: Respiratory Distress - Cardiovascular Exam Cardiovascular Exam: +S1, +S2 - GI/Abdominal Exam GI & Abdominal Exam: Soft, Normal Bowel Sounds. absent: Tenderness - Extremities Exam Extremities Exam: Full ROM, Normal Inspection - Back Exam Back Exam: NORMAL INSPECTION - Neurological Exam Neurological Exam: Alert, Awake, Oriented x3 - Psychiatric Exam Psychiatric exam: Flat Affect - Skin Skin Exam: Dry, Intact, Normal Color, Warm Assessment and Plan - Assessment and Plan (Free Text) Assessment: This is a 52 yo male with 1. Eyelid abscess -plastic surgery consult. recs appreciated. DR PICKERING. -general sx consult. recs appreciated. DR YIP -ophtho consult. recs appreciated. DR. ARIZMENDI/ DR. JUAREZ is covering -IV vanco 1 g daily -IV zosyn 4.5 g q 8 hrs -ultram for pain -will get ID consult with DR BUTTS. recs appreciated. -brain MRI shows periorbital cellulitis 2. hx of migraines -continue topiramate -continue fioricet -continue tylenol for pain 3. hx of depression -continue zoloft -continue duloxetine 4. hx of insomnia -continue ambien 5. GI/DVT ppx -continue protonix -continue lovenox -PT evaluation discussed with dr. hazel. <Apolonia Hazel S - Last Filed: 12/26/17 19:20> Objective - Vital Signs/Intake and Output Vital Signs (last 24 hours): Temp Pulse Resp BP Pulse Ox 98.5 F 20 L 96 H 110/74 96 12/26/17 16:00 12/26/17 16:00 12/26/17 16:00 12/26/17 16:00 12/26/17 07:59 Intake and Output: 12/26/17 12/27/17 18:59 06:59 Intake Total 600 Balance 600 - Medications Medications: Current Medications Acetaminophen (Tylenol 325mg Tab) 650 mg PO Q6 PRN PRN Reason: Pain, Mild (1-3) Acetaminophen/Butalbital/Caffeine (Fioricet) 1 tab PO Q4H PRN PRN Reason: Migraine headache Last Admin: 12/26/17 14:26 Dose: 1 tab Duloxetine HCl (Cymbalta) 30 mg PO HS [facility] Last Admin: 12/25/17 21:37 Dose: 30 mg Enoxaparin Sodium (Lovenox) 40 mg SC DAILY [facility] Last Admin: 12/26/17 09:34 Dose: 40 mg Folic Acid (Folic Acid) 1 mg PO DAILY [facility] Last Admin: 12/26/17 09:35 Dose: 1 mg Vancomycin/Sodium Chloride (Vancomycin 1 Gm/Ns 200 Ml) 1 gm in 200 mls @ 133.333 mls/hr IVPB Q24H [facility] Stop: 12/29/17 15:31 Last Admin: 12/26/17 14:33 Dose: 133.333 mls/hr Piperacillin Sod/Tazobactam Sod (Zosyn 4.5 Gm Iv Premix) 4.5 gm in 100 mls @ 200 mls/hr IVPB Q8H [facility] Last Admin: 12/26/17 13:09 Dose: 200 mls/hr Magnesium Hydroxide (Milk Of Magnesia) 30 ml PO HS PRN PRN Reason: Constipation Multivitamins (Hexavitamin) 1 tab PO DAILY [facility] Last Admin: 12/26/17 09:35 Dose: 1 tab Nicotine (Nicoderm Cq) 1 patch TD DAILY [facility] Last Admin: 12/26/17 09:34 Dose: 1 patch Pantoprazole Sodium (Protonix Ec Tab) 40 mg PO DAILY [facility] Last Admin: 12/26/17 09:35 Dose: 40 mg Sertraline HCl (Zoloft) 25 mg PO DAILY [facility] Last Admin: 12/26/17 09:35 Dose: 25 mg Thiamine HCl (Vitamin B1 Tab) 100 mg PO DAILY [facility] Last Admin: 12/26/17 09:35 Dose: 100 mg Topiramate (Topamax) 50 mg PO DAILY [facility] Last Admin: 12/26/17 09:35 Dose: 50 mg Tramadol HCl (Ultram) 50 mg PO Q8 PRN PRN Reason: pain Last Admin: 12/26/17 14:30 Dose: 50 mg Zolpidem Tartrate (Ambien) 5 mg PO HS [facility] Last Admin: 12/25/17 21:25 Dose: 5 mg - Labs Labs: 12/26/17 08:22 12/26/17 08:22 PT 13.2 SECONDS (9.7-12.2) H 12/23/17 14:05 INR 1.2 12/23/17 14:05 APTT 38 SECONDS (21-34) H 12/23/17 14:05 Attending/Attestation - Attestation I have personally seen and examined this patient.: Yes I have fully participated in the care of the patient.: Yes I have reviewed all pertinent clinical information, including history, physical exam and plan: Yes
--- NOTE | 2017-12-26 14:04 | CP.PCM.PN ---
Subjective - Date & Time of Evaluation Date of Evaluation: 12/26/17 Time of Evaluation: 11:20 - Subjective Subjective: clinically same Objective - Vital Signs/Intake and Output Vital Signs (last 24 hours): Temp Pulse Resp BP Pulse Ox 97.9 F 66 20 109/70 96 12/26/17 07:59 12/26/17 07:59 12/26/17 07:59 12/26/17 07:59 12/26/17 07:59 - Medications Medications: Current Medications Acetaminophen (Tylenol 325mg Tab) 650 mg PO Q6 PRN PRN Reason: Pain, Mild (1-3) Acetaminophen/Butalbital/Caffeine (Fioricet) 1 tab PO Q4H PRN PRN Reason: Migraine headache Last Admin: 12/26/17 09:36 Dose: 1 tab Duloxetine HCl (Cymbalta) 30 mg PO HS [facility] Last Admin: 12/25/17 21:37 Dose: 30 mg Enoxaparin Sodium (Lovenox) 40 mg SC DAILY [facility] Last Admin: 12/26/17 09:34 Dose: 40 mg Folic Acid (Folic Acid) 1 mg PO DAILY [facility] Last Admin: 12/26/17 09:35 Dose: 1 mg Vancomycin/Sodium Chloride (Vancomycin 1 Gm/Ns 200 Ml) 1 gm in 200 mls @ 133.333 mls/hr IVPB Q24H [facility] Stop: 12/29/17 15:31 Last Admin: 12/25/17 19:45 Dose: 133.333 mls/hr Piperacillin Sod/Tazobactam Sod (Zosyn 4.5 Gm Iv Premix) 4.5 gm in 100 mls @ 200 mls/hr IVPB Q8H [facility] Last Admin: 12/26/17 13:09 Dose: 200 mls/hr Magnesium Hydroxide (Milk Of Magnesia) 30 ml PO HS PRN PRN Reason: Constipation Multivitamins (Hexavitamin) 1 tab PO DAILY [facility] Last Admin: 12/26/17 09:35 Dose: 1 tab Nicotine (Nicoderm Cq) 1 patch TD DAILY [facility] Last Admin: 12/26/17 09:34 Dose: 1 patch Pantoprazole Sodium (Protonix Ec Tab) 40 mg PO DAILY [facility] Last Admin: 12/26/17 09:35 Dose: 40 mg Sertraline HCl (Zoloft) 25 mg PO DAILY [facility] Last Admin: 12/26/17 09:35 Dose: 25 mg Thiamine HCl (Vitamin B1 Tab) 100 mg PO DAILY [facility] Last Admin: 12/26/17 09:35 Dose: 100 mg Topiramate (Topamax) 50 mg PO DAILY [facility] Last Admin: 12/26/17 09:35 Dose: 50 mg Tramadol HCl (Ultram) 50 mg PO Q8 PRN PRN Reason: pain Last Admin: 12/26/17 06:40 Dose: 50 mg Zolpidem Tartrate (Ambien) 5 mg PO HS [facility] Last Admin: 12/25/17 21:25 Dose: 5 mg - Labs Labs: 12/26/17 08:22 12/26/17 08:22 PT 13.2 SECONDS (9.7-12.2) H 12/23/17 14:05 INR 1.2 12/23/17 14:05 APTT 38 SECONDS (21-34) H 12/23/17 14:05 - Constitutional Appears: Well - Head Exam Head Exam: ATRAUMATIC, NORMAL INSPECTION, NORMOCEPHALIC - Eye Exam Eye Exam: EOMI, Normal appearance, PERRL Pupil Exam: NORMAL ACCOMODATION, PERRL - ENT Exam ENT Exam: Mucous Membranes Moist, Normal Exam - Neck Exam Neck Exam: Full ROM, Normal Inspection. absent: Lymphadenopathy - Respiratory Exam Respiratory Exam: Decreased Breath Sounds - Cardiovascular Exam Cardiovascular Exam: REGULAR RHYTHM, +S1, +S2 - GI/Abdominal Exam GI & Abdominal Exam: Soft, Diminished Bowel Sounds - Rectal Exam Rectal Exam: Deferred Assessment and Plan - Assessment and Plan (Free Text) Plan: 1. Eyelid abscess -plastic surgery consult. recs appreciated. DR PICKERING. -general sx consult. recs appreciated. DR YIP -ophtho consult. recs appreciated. DR. ARIZMENDI/ DR. JUAREZ is covering -IV vanco 1 g daily -IV zosyn 4.5 g q 8 hrs -ultram for pain -will get ID consult with DR BUTTS. recs appreciated. -brain MRI shows periorbital cellulitis 2. hx of migraines -continue topiramate -continue fioricet -continue tylenol for pain 3. hx of depression -continue zoloft -continue duloxetine
[2017-12-26] MEDS: Vancomycin 1 gm/NS 200 ml 1 GM/200 ML BAG IVPB SCH (14:33)
--- NOTE | 2017-12-26 18:56 | CP.PCM.PN ---
Subjective - Date & Time of Evaluation Date of Evaluation: 12/26/17 Time of Evaluation: 09:00 - Subjective Subjective: SEEN BY DR PICKERING IV RX IN PROGRESS SWELLING LESS Objective - Vital Signs/Intake and Output Vital Signs (last 24 hours): Temp Pulse Resp BP Pulse Ox 98.5 F 20 L 96 H 110/74 96 12/26/17 16:00 12/26/17 16:00 12/26/17 16:00 12/26/17 16:00 12/26/17 07:59 Intake and Output: 12/26/17 12/26/17 06:59 18:59 Intake Total 600 Balance 600 - Medications Medications: Current Medications Acetaminophen (Tylenol 325mg Tab) 650 mg PO Q6 PRN PRN Reason: Pain, Mild (1-3) Acetaminophen/Butalbital/Caffeine (Fioricet) 1 tab PO Q4H PRN PRN Reason: Migraine headache Last Admin: 12/26/17 14:26 Dose: 1 tab Duloxetine HCl (Cymbalta) 30 mg PO HS [facility] Last Admin: 12/25/17 21:37 Dose: 30 mg Enoxaparin Sodium (Lovenox) 40 mg SC DAILY [facility] Last Admin: 12/26/17 09:34 Dose: 40 mg Folic Acid (Folic Acid) 1 mg PO DAILY [facility] Last Admin: 12/26/17 09:35 Dose: 1 mg Vancomycin/Sodium Chloride (Vancomycin 1 Gm/Ns 200 Ml) 1 gm in 200 mls @ 133.333 mls/hr IVPB Q24H [facility] Stop: 12/29/17 15:31 Last Admin: 12/26/17 14:33 Dose: 133.333 mls/hr Piperacillin Sod/Tazobactam Sod (Zosyn 4.5 Gm Iv Premix) 4.5 gm in 100 mls @ 200 mls/hr IVPB Q8H [facility] Last Admin: 12/26/17 13:09 Dose: 200 mls/hr Magnesium Hydroxide (Milk Of Magnesia) 30 ml PO HS PRN PRN Reason: Constipation Multivitamins (Hexavitamin) 1 tab PO DAILY [facility] Last Admin: 12/26/17 09:35 Dose: 1 tab Nicotine (Nicoderm Cq) 1 patch TD DAILY [facility] Last Admin: 12/26/17 09:34 Dose: 1 patch Pantoprazole Sodium (Protonix Ec Tab) 40 mg PO DAILY [facility] Last Admin: 12/26/17 09:35 Dose: 40 mg Sertraline HCl (Zoloft) 25 mg PO DAILY [facility] Last Admin: 12/26/17 09:35 Dose: 25 mg Thiamine HCl (Vitamin B1 Tab) 100 mg PO DAILY [facility] Last Admin: 12/26/17 09:35 Dose: 100 mg Topiramate (Topamax) 50 mg PO DAILY [facility] Last Admin: 12/26/17 09:35 Dose: 50 mg Tramadol HCl (Ultram) 50 mg PO Q8 PRN PRN Reason: pain Last Admin: 12/26/17 14:30 Dose: 50 mg Zolpidem Tartrate (Ambien) 5 mg PO HS [facility] Last Admin: 12/25/17 21:25 Dose: 5 mg - Labs Labs: 12/26/17 08:22 12/26/17 08:22 PT 13.2 SECONDS (9.7-12.2) H 12/23/17 14:05 INR 1.2 12/23/17 14:05 APTT 38 SECONDS (21-34) H 12/23/17 14:05 - Constitutional Appears: Chronically Ill - Head Exam Head Exam: NORMAL INSPECTION - Eye Exam Eye Exam: PERRL. absent: Scleral icterus - ENT Exam ENT Exam: Mucous Membranes Dry - Neck Exam Neck Exam: absent: Lymphadenopathy - Respiratory Exam Respiratory Exam: Decreased Breath Sounds - Cardiovascular Exam Cardiovascular Exam: REGULAR RHYTHM - GI/Abdominal Exam GI & Abdominal Exam: Distended - Rectal Exam Rectal Exam: Deferred - Exam Exam: NORMAL INSPECTION - Extremities Exam Extremities Exam: absent: Pedal Edema - Back Exam Back Exam: absent: CVA tenderness (L), CVA tenderness (R) - Neurological Exam Neurological Exam: Alert, Awake, CN II-XII Intact, Oriented x3 Assessment and Plan (1) Abscess of eyebrow Status: Acute (2) Facial abscess Status: Acute - Assessment and Plan (Free Text) Assessment: IV RX REORDERED
[2017-12-26] MEDS ORDERED: Potassium Chloride 20 mEq ER Tab PO STA (18:58)
[2017-12-27] MEDS: Piperacill/Tazo 4.5gm in Dex 4.5 GM/100 ML BAG IVPB SCH ×3 (05:51→21:12)
[2017-12-27 08:37] LABS: BASO % 0.4 % (0.0-2.0); EOS # 0.4 K/uL (0.0-0.7); EOS % 9.5 % (0.0-4.0); HEMOGLOBIN 12.7 g/dL (12.0-18.0); LYMPH # 1.6 K/uL (1.0-4.3); LYMPH % 37.5 % (20.0-40.0); MEAN CELL VOLUME 82.8 fL (80.0-94.0); MEAN CORPUSCULAR HEMOGLOBIN 28.1 pg (27.0-31.0); MEAN CORPUSCULAR HGB CONC 33.9 g/dL (33.0-37.0); MEAN PLATELET VOLUME 7.9 fL (7.2-11.7); MONO # 0.3 K/uL (0.0-0.8); MONO % 6.9 % (0.0-10.0); NEUT % 45.7 % (50.0-75.0); RBC 4.53 Mil/uL (4.40-5.90); RED CELL DISTRIBUTION WIDTH 15.5 % (11.5-14.5); WHITE BLOOD COUNT 4.4 K/uL (4.8-10.8)
[2017-12-27 08:56] LABS: ALB/GLOB RATIO 1.1 (1.0-2.1); ALBUMIN 3.9 g/dL (3.5-5.0); ALT/SGPT 26 U/L (21-72); AST/SGOT 25 U/L (17-59); BLOOD UREA NITROGEN 10 mg/dL (9-20); CALCIUM 9.4 mg/dl (8.6-10.4); GFR AFRICAN-AMERICAN > 60; GFR NON-AFRICAN AMERICAN > 60
[2017-12-27] MEDS: Multiple Vitamins Tab PO SCH (09:26)
[2017-12-27] MEDS: Pantoprazole 40 mg EC Tab PO SCH (09:26)
[2017-12-27] MEDS: Enoxaparin 40 mg Syringe SC SCH (09:27)
--- NOTE | 2017-12-27 13:27 | CP.PCM.PN ---
Subjective - Date & Time of Evaluation Date of Evaluation: 12/27/17 Time of Evaluation: 13:26 - Subjective Subjective: PGY2 Medicine Note for Dr. Elliot Hazel; all management as per Dr. Elliot hazel This patient was seen and examined at bedside without attending physician; patient is complaining of vague pains asking for "more pain medication" not related at all to his eye; patient is afebrile with no leukoycytosis and normal vital signs. He denies any chest pain, shortness of breath, abdominal pain, n/v/ d, dysuria/freq/urg or lower extremity pain/swelling. Objective - Vital Signs/Intake and Output Vital Signs (last 24 hours): Temp Pulse Resp BP Pulse Ox 97.4 F L 62 20 113/68 95 12/27/17 07:00 12/27/17 07:00 12/27/17 07:00 12/27/17 07:00 12/27/17 07:00 - Medications Medications: Current Medications Acetaminophen (Tylenol 325mg Tab) 650 mg PO Q6 PRN PRN Reason: Pain, Mild (1-3) Acetaminophen/Butalbital/Caffeine (Fioricet) 1 tab PO Q4H PRN PRN Reason: Migraine headache Last Admin: 12/26/17 21:50 Dose: 1 tab Duloxetine HCl (Cymbalta) 30 mg PO HS [facility] Last Admin: 12/26/17 21:50 Dose: 30 mg Enoxaparin Sodium (Lovenox) 40 mg SC DAILY [facility] Last Admin: 12/27/17 09:27 Dose: 40 mg Folic Acid (Folic Acid) 1 mg PO DAILY [facility] Last Admin: 12/27/17 09:26 Dose: 1 mg Vancomycin/Sodium Chloride (Vancomycin 1 Gm/Ns 200 Ml) 1 gm in 200 mls @ 133.333 mls/hr IVPB Q24H [facility] Stop: 12/29/17 15:31 Last Admin: 12/26/17 14:33 Dose: 133.333 mls/hr Piperacillin Sod/Tazobactam Sod (Zosyn 4.5 Gm Iv Premix) 4.5 gm in 100 mls @ 200 mls/hr IVPB Q8H [facility] Last Admin: 12/27/17 05:51 Dose: 200 mls/hr Magnesium Hydroxide (Milk Of Magnesia) 30 ml PO HS PRN PRN Reason: Constipation Multivitamins (Hexavitamin) 1 tab PO DAILY [facility] Last Admin: 12/27/17 09:26 Dose: 1 tab Nicotine (Nicoderm Cq) 1 patch TD DAILY [facility] Last Admin: 12/27/17 09:27 Dose: 1 patch Pantoprazole Sodium (Protonix Ec Tab) 40 mg PO DAILY [facility] Last Admin: 12/27/17 09:26 Dose: 40 mg Sertraline HCl (Zoloft) 25 mg PO DAILY [facility] Last Admin: 12/27/17 09:26 Dose: 25 mg Thiamine HCl (Vitamin B1 Tab) 100 mg PO DAILY [facility] Last Admin: 12/27/17 09:26 Dose: 100 mg Topiramate (Topamax) 50 mg PO DAILY [facility] Last Admin: 12/27/17 09:26 Dose: 50 mg Tramadol HCl (Ultram) 50 mg PO Q8 PRN PRN Reason: pain Last Admin: 12/27/17 09:27 Dose: 50 mg Zolpidem Tartrate (Ambien) 5 mg PO HS [facility] Last Admin: 12/26/17 21:50 Dose: 5 mg - Labs Labs: 12/27/17 08:31 12/27/17 08:31 PT 13.2 SECONDS (9.7-12.2) H 12/23/17 14:05 INR 1.2 12/23/17 14:05 APTT 38 SECONDS (21-34) H 12/23/17 14:05 - Head Exam Additional comments: eyelid abscess present, no drainage. - Eye Exam Eye Exam: EOMI - ENT Exam ENT Exam: Mucous Membranes Moist - Neck Exam Neck Exam: Full ROM, Normal Inspection - Respiratory Exam Respiratory Exam: NORMAL BREATHING PATTERN. absent: Respiratory Distress - Cardiovascular Exam Cardiovascular Exam: +S1, +S2 - GI/Abdominal Exam GI & Abdominal Exam: Soft, Normal Bowel Sounds. absent: Tenderness - Extremities Exam Extremities Exam: Full ROM, Normal Inspection - Back Exam Back Exam: NORMAL INSPECTION - Neurological Exam Neurological Exam: Alert, Awake, Oriented x3 - Psychiatric Exam Psychiatric exam: Flat Affect - Skin Skin Exam: Dry, Intact, Normal Color, Warm Assessment and Plan - Assessment and Plan (Free Text) Assessment: This is a 52 yo male admitted for eyelid abscess Eyelid abscess -plastic surgery consult. recs appreciated. DR PICKERING. -general sx consult. recs appreciated. DR YIP -ophtho consult. recs appreciated. DR. ARIZMENDI/ DR. JUAREZ is covering -IV vanco 1 g daily -IV zosyn 4.5 g q 8 hrs -ultram for pain -will get ID consult with DR BUTTS. recs appreciated. -brain MRI shows periorbital cellulitis -no surgical intervention at this time Dispo: patient likely will be able to be discharged with PO medicine tomorrow; will need to follow up closely for resolution of abscess hx of migraines -continue topiramate -continue fioricet -continue tylenol for pain hx of depression -continue zoloft -continue duloxetine hx of insomnia -continue ambien GI/DVT ppx -continue protonix -continue lovenox -PT evaluation Case discussed with Dr. Elliot Hazel
[2017-12-27] MEDS: Vancomycin 1 gm/NS 200 ml 1 GM/200 ML BAG IVPB SCH (15:00)
--- NOTE | 2017-12-27 17:01 | CP.PCM.PN ---
Subjective - Date & Time of Evaluation Date of Evaluation: 12/27/17 Time of Evaluation: 13:20 - Subjective Subjective: pt clinically same Objective - Vital Signs/Intake and Output Vital Signs (last 24 hours): Temp Pulse Resp BP Pulse Ox 97.3 F L 73 20 109/70 95 12/27/17 15:00 12/27/17 15:00 12/27/17 15:00 12/27/17 15:00 12/27/17 15:00 - Medications Medications: Current Medications Acetaminophen (Tylenol 325mg Tab) 650 mg PO Q6 PRN PRN Reason: Pain, Mild (1-3) Acetaminophen/Butalbital/Caffeine (Fioricet) 1 tab PO Q4H PRN PRN Reason: Migraine headache Last Admin: 12/26/17 21:50 Dose: 1 tab Duloxetine HCl (Cymbalta) 30 mg PO HS [facility] Last Admin: 12/26/17 21:50 Dose: 30 mg Enoxaparin Sodium (Lovenox) 40 mg SC DAILY [facility] Last Admin: 12/27/17 09:27 Dose: 40 mg Folic Acid (Folic Acid) 1 mg PO DAILY [facility] Last Admin: 12/27/17 09:26 Dose: 1 mg Vancomycin/Sodium Chloride (Vancomycin 1 Gm/Ns 200 Ml) 1 gm in 200 mls @ 133.333 mls/hr IVPB Q24H [facility] Stop: 12/29/17 15:31 Last Admin: 12/26/17 14:33 Dose: 133.333 mls/hr Piperacillin Sod/Tazobactam Sod (Zosyn 4.5 Gm Iv Premix) 4.5 gm in 100 mls @ 200 mls/hr IVPB Q8H [facility] Last Admin: 12/27/17 13:34 Dose: 200 mls/hr Magnesium Hydroxide (Milk Of Magnesia) 30 ml PO HS PRN PRN Reason: Constipation Multivitamins (Hexavitamin) 1 tab PO DAILY [facility] Last Admin: 12/27/17 09:26 Dose: 1 tab Nicotine (Nicoderm Cq) 1 patch TD DAILY [facility] Last Admin: 12/27/17 09:27 Dose: 1 patch Pantoprazole Sodium (Protonix Ec Tab) 40 mg PO DAILY [facility] Last Admin: 12/27/17 09:26 Dose: 40 mg Sertraline HCl (Zoloft) 25 mg PO DAILY [facility] Last Admin: 12/27/17 09:26 Dose: 25 mg Thiamine HCl (Vitamin B1 Tab) 100 mg PO DAILY [facility] Last Admin: 12/27/17 09:26 Dose: 100 mg Topiramate (Topamax) 50 mg PO DAILY [facility] Last Admin: 12/27/17 09:26 Dose: 50 mg Tramadol HCl (Ultram) 50 mg PO Q8 PRN PRN Reason: pain Last Admin: 12/27/17 09:27 Dose: 50 mg Zolpidem Tartrate (Ambien) 5 mg PO [facility] Last Admin: 12/26/17 21:50 Dose: 5 mg - Labs Labs: 12/27/17 08:31 12/27/17 08:31 PT 13.2 SECONDS (9.7-12.2) H 12/23/17 14:05 INR 1.2 12/23/17 14:05 APTT 38 SECONDS (21-34) H 12/23/17 14:05 - Constitutional Appears: No Acute Distress - Head Exam Head Exam: ATRAUMATIC, NORMAL INSPECTION, NORMOCEPHALIC - Eye Exam Eye Exam: EOMI, Normal appearance, PERRL Pupil Exam: NORMAL ACCOMODATION, PERRL - ENT Exam ENT Exam: Mucous Membranes Moist - Neck Exam Neck Exam: Full ROM - Respiratory Exam Respiratory Exam: Decreased Breath Sounds - Cardiovascular Exam Cardiovascular Exam: REGULAR RHYTHM, +S1, +S2 - GI/Abdominal Exam GI & Abdominal Exam: Soft, Diminished Bowel Sounds - Rectal Exam Rectal Exam: Deferred - Neurological Exam Additional comments: [employer] same Assessment and Plan (1) Abdominal pain Status: Acute (2) Abrasion Status: Acute (3) Abscess of eyebrow Status: Acute (4) Acute on chronic pancreatitis Status: Chronic (5) Alcohol abuse Status: Chronic (6) Alcohol abuse Status: Chronic (7) Alcohol abuse with intoxication Status: Acute (8) Alcohol dependence Status: Chronic (9) Alcohol intoxication Status: Acute (10) Alcohol withdrawal Status: Acute (11) Alcohol withdrawal seizure Status: Acute (12) Anemia Status: Chronic (13) Anxiety and depression Status: Chronic (14) Aspiration into lower respiratory tract Status: Chronic (15) Back contusion Status: Acute (16) Bacteremia Status: Acute (17) Bilateral lower extremity edema Status: Acute (18) Breakthrough seizure Status: Acute (19) Cellulitis Status: Acute (20) Cellulitis of lower extremity Status: Acute (21) Cholecystitis Status: Chronic (22) Chronic calcific pancreatitis Status: Acute (23) Chronic pancreatitis Status: Chronic (24) COPD (chronic obstructive pulmonary disease) Status: Chronic (25) Dehydration Status: Acute (26) Depression Status: Chronic (27) Diarrhea Status: Acute (28) Dressing change/suture removal Status: Acute (29) Drug dependence Status: Acute (30) Duodenitis Status: Acute (31) Electrolyte imbalance Status: Acute (32) Elevated alkaline phosphatase level Status: Acute (33) Empyema Status: Suspected (34) Facial abscess Status: Acute (35) Facial laceration Status: Acute (36) Fall Status: Acute (37) Fever Status: Acute (38) Head contusion Status: Acute (39) Head trauma Status: Acute (40) Homelessness Status: Acute (41) Hyperphosphatemia Status: Acute (42) Hypertension Status: Chronic (43) Hypokalemia Status: Acute (44) Hypokalemia with normal acid-base balance Status: Acute (45) Hypomagnesemia Status: Acute (46) Hypothermia Status: Acute (47) Low vitamin D level Status: Acute (48) Pancreatic mass Status: Acute (49) Pancreatitis, acute Status: Acute (50) Periapical abscess Status: Acute (51) Peripheral motor neuropathy Status: Chronic (52) Pneumonia Status: Acute (53) Pneumonia Status: Acute (54) Prophylactic measure Status: Acute (55) Respiratory failure with hypoxia and hypercapnia Status: Acute (56) Seizure Status: Acute (57) Seizure Status: Resolved (58) Skull fracture Status: Acute (59) Subarachnoid bleed Status: Acute (60) Subdural hematoma Status: Acute (61) Subdural hemorrhage Status: Acute (62) Thrombocythemia Status: Acute (63) Thrombocytopenia Status: Acute (64) Tobacco abuse Status: Acute (65) Tremors of nervous system Status: Acute (66) Vitamin D deficiency Status: Acute
--- NOTE | 2017-12-27 18:42 | CP.PCM.PN ---
Subjective - Date & Time of Evaluation Date of Evaluation: 12/27/17 Time of Evaluation: 07:00 - Subjective Subjective: awake alert NAD Objective - Vital Signs/Intake and Output Vital Signs (last 24 hours): Temp Pulse Resp BP Pulse Ox 97.3 F L 73 20 109/70 95 12/27/17 15:00 12/27/17 15:00 12/27/17 15:00 12/27/17 15:00 12/27/17 15:00 - Medications Medications: Current Medications Acetaminophen (Tylenol 325mg Tab) 650 mg PO Q6 PRN PRN Reason: Pain, Mild (1-3) Acetaminophen/Butalbital/Caffeine (Fioricet) 1 tab PO Q4H PRN PRN Reason: Migraine headache Last Admin: 12/26/17 21:50 Dose: 1 tab Duloxetine HCl (Cymbalta) 30 mg PO HS [facility] Last Admin: 12/26/17 21:50 Dose: 30 mg Enoxaparin Sodium (Lovenox) 40 mg SC DAILY [facility] Last Admin: 12/27/17 09:27 Dose: 40 mg Folic Acid (Folic Acid) 1 mg PO DAILY [facility] Last Admin: 12/27/17 09:26 Dose: 1 mg Vancomycin/Sodium Chloride (Vancomycin 1 Gm/Ns 200 Ml) 1 gm in 200 mls @ 133.333 mls/hr IVPB Q24H [facility] Stop: 12/29/17 15:31 Last Admin: 12/27/17 15:00 Dose: 133.333 mls/hr Piperacillin Sod/Tazobactam Sod (Zosyn 4.5 Gm Iv Premix) 4.5 gm in 100 mls @ 200 mls/hr IVPB Q8H [facility] Last Admin: 12/27/17 13:34 Dose: 200 mls/hr Magnesium Hydroxide (Milk Of Magnesia) 30 ml PO HS PRN PRN Reason: Constipation Multivitamins (Hexavitamin) 1 tab PO DAILY [facility] Last Admin: 12/27/17 09:26 Dose: 1 tab Nicotine (Nicoderm Cq) 1 patch TD DAILY [facility] Last Admin: 12/27/17 09:27 Dose: 1 patch Pantoprazole Sodium (Protonix Ec Tab) 40 mg PO DAILY [facility] Last Admin: 12/27/17 09:26 Dose: 40 mg Sertraline HCl (Zoloft) 25 mg PO DAILY [facility] Last Admin: 12/27/17 09:26 Dose: 25 mg Thiamine HCl (Vitamin B1 Tab) 100 mg PO DAILY [facility] Last Admin: 12/27/17 09:26 Dose: 100 mg Topiramate (Topamax) 50 mg PO DAILY [facility] Last Admin: 12/27/17 09:26 Dose: 50 mg Tramadol HCl (Ultram) 50 mg PO Q8 PRN PRN Reason: pain Last Admin: 12/27/17 18:28 Dose: 50 mg Zolpidem Tartrate (Ambien) 5 mg PO HS [facility] Last Admin: 12/26/17 21:50 Dose: 5 mg - Labs Labs: 12/27/17 08:31 12/27/17 08:31 PT 13.2 SECONDS (9.7-12.2) H 12/23/17 14:05 INR 1.2 12/23/17 14:05 APTT 38 SECONDS (21-34) H 12/23/17 14:05 - Constitutional Appears: Non-toxic, Chronically Ill - Head Exam Head Exam: NORMOCEPHALIC - Eye Exam Eye Exam: Normal appearance, PERRL. absent: Scleral icterus - ENT Exam ENT Exam: Mucous Membranes Dry - Neck Exam Neck Exam: absent: Lymphadenopathy - Respiratory Exam Respiratory Exam: Decreased Breath Sounds - Cardiovascular Exam Cardiovascular Exam: REGULAR RHYTHM Assessment and Plan (1) Abscess of eyebrow Status: Acute (2) Facial abscess Status: Acute
[2017-12-27] MEDS ORDERED: Potassium Chloride 20 mEq ER Tab PO ONE (19:30)
[2017-12-28] MEDS: Piperacill/Tazo 4.5gm in Dex 4.5 GM/100 ML BAG IVPB SCH ×3 (05:31→21:41)
--- NOTE | 2017-12-28 10:01 | CP.PCM.PN ---
Subjective - Date & Time of Evaluation Date of Evaluation: 12/28/17 Time of Evaluation: 07:05 - Subjective Subjective: PGY2 Medicine Note for Dr. Elliot Hazel; all management as per Dr. Elliot hazel This patient was seen and examined at bedside; Patient reports his eye lid swelling has reduced, his eyelid pain is much improved, and he is ready to go back to rehab. He reports +BM yesterday, denies constipation. Denies drainage from abscess site, n/v, diarrhea, fever, or any additional complaints. ---- Patient is stable for discharge to [facility] per Dr. Elliot Hazel. Patient should resume all medications as outlined in this document. Additionally, patient should take the new medications listed below. Please make an appointment and follow up with your Primary Doctor within one week of discharge. Patient should return to ED immediately if symptoms return or worsen. Instructions discussed with patient who understood and agreed. Newly prescribed medications: Clindamycin 300mg PO Q6H x5d (for facial abscess) Objective - Vital Signs/Intake and Output Vital Signs (last 24 hours): Temp Pulse Resp BP Pulse Ox 97.6 F 79 20 122/79 95 12/28/17 08:17 12/28/17 08:17 12/28/17 08:17 12/28/17 08:17 12/28/17 08:17 - Medications Medications: Current Medications Acetaminophen (Tylenol 325mg Tab) 650 mg PO Q6 PRN PRN Reason: Pain, Mild (1-3) Acetaminophen/Butalbital/Caffeine (Fioricet) 1 tab PO Q4H PRN PRN Reason: Migraine headache Last Admin: 12/26/17 21:50 Dose: 1 tab Duloxetine HCl (Cymbalta) 30 mg PO HS [facility] Last Admin: 12/27/17 21:35 Dose: 30 mg Enoxaparin Sodium (Lovenox) 40 mg SC DAILY [facility] Last Admin: 12/27/17 09:27 Dose: 40 mg Folic Acid (Folic Acid) 1 mg PO DAILY [facility] Last Admin: 12/27/17 09:26 Dose: 1 mg Vancomycin/Sodium Chloride (Vancomycin 1 Gm/Ns 200 Ml) 1 gm in 200 mls @ 133.333 mls/hr IVPB Q24H [facility] Stop: 12/29/17 15:31 Last Admin: 12/27/17 15:00 Dose: 133.333 mls/hr Piperacillin Sod/Tazobactam Sod (Zosyn 4.5 Gm Iv Premix) 4.5 gm in 100 mls @ 200 mls/hr IVPB Q8H [facility] Last Admin: 12/28/17 05:31 Dose: 200 mls/hr Magnesium Hydroxide (Milk Of Magnesia) 30 ml PO HS PRN PRN Reason: Constipation Multivitamins (Hexavitamin) 1 tab PO DAILY [facility] Last Admin: 12/27/17 09:26 Dose: 1 tab Nicotine (Nicoderm Cq) 1 patch TD DAILY [facility] Last Admin: 12/27/17 09:27 Dose: 1 patch Pantoprazole Sodium (Protonix Ec Tab) 40 mg PO DAILY [facility] Last Admin: 12/27/17 09:26 Dose: 40 mg Sertraline HCl (Zoloft) 25 mg PO DAILY [facility] Last Admin: 12/27/17 09:26 Dose: 25 mg Thiamine HCl (Vitamin B1 Tab) 100 mg PO DAILY [facility] Last Admin: 12/27/17 09:26 Dose: 100 mg Topiramate (Topamax) 50 mg PO DAILY [facility] Last Admin: 12/27/17 09:26 Dose: 50 mg Tramadol HCl (Ultram) 50 mg PO Q8 PRN PRN Reason: pain Last Admin: 12/28/17 03:03 Dose: 50 mg Zolpidem Tartrate (Ambien) 5 mg PO HS [facility] Last Admin: 12/27/17 21:35 Dose: 5 mg - Labs Labs: 12/27/17 08:31 12/27/17 08:31 PT 13.2 SECONDS (9.7-12.2) H 12/23/17 14:05 INR 1.2 12/23/17 14:05 APTT 38 SECONDS (21-34) H 12/23/17 14:05 - Additional Findings Additional findings: - Head Exam Additional comments: eyelid abscess present, no drainage, improving - Eye Exam Eye Exam: EOMI - ENT Exam ENT Exam: Mucous Membranes Moist - Neck Exam Neck Exam: Full ROM, Normal Inspection - Respiratory Exam Respiratory Exam: NORMAL BREATHING PATTERN. absent: Respiratory Distress - Cardiovascular Exam Cardiovascular Exam: +S1, +S2 - GI/Abdominal Exam GI & Abdominal Exam: Soft, Normal Bowel Sounds. absent: Tenderness - Extremities Exam Extremities Exam: Full ROM, Normal Inspection - Back Exam Back Exam: NORMAL INSPECTION - Neurological Exam Neurological Exam: Alert, Awake, Oriented x3 - Psychiatric Exam Psychiatric exam: Flat Affect - Skin Skin Exam: Dry, Intact, Normal Color, Warm Assessment and Plan - Assessment and Plan (Free Text) Assessment: This is a 52 yo male admitted for eyelid abscess Eyelid abscess 12/28: patient doing well, area is mildly tender, improving. No drainage. Afebrile. Swelling significantly decreased. -plastic surgery consult. recs appreciated. DR PICKERING. -general sx consult. recs appreciated. DR YIP -ophtho consult. recs appreciated. DR. ARIZMENDI/ DR. JUAREZ is covering -IV vanco 1 g daily -IV zosyn 4.5 g q 8 hrs -ultram for pain -will get ID consult with DR BUTTS. recs appreciated. -brain MRI shows periorbital cellulitis -no surgical intervention at this time hx of migraines -continue topiramate -continue fioricet -continue tylenol for pain hx of depression -continue zoloft -continue duloxetine hx of insomnia -continue ambien GI/DVT ppx -continue protonix -continue lovenox -PT evaluation Dispo: patient likely will be able to be discharged with PO medicine today; will need to follow up closely for resolution of abscess Case discussed with Dr. Elliot Hazel
[2017-12-28] MEDS: Apap-Butalbital-Caffeine 325-50-40mg Tab PO PRN (11:13)
[2017-12-28] MEDS: Enoxaparin 40 mg Syringe SC SCH (11:19)
[2017-12-28] MEDS: Pantoprazole 40 mg EC Tab PO SCH (11:20)
[2017-12-28] MEDS: Multiple Vitamins Tab PO SCH (11:20)
[2017-12-28] MEDS: Vancomycin 1 gm/NS 200 ml 1 GM/200 ML BAG IVPB SCH (16:30)
--- NOTE | 2017-12-28 18:45 | CP.PCM.PN ---
Subjective - Date & Time of Evaluation Date of Evaluation: 12/28/17 Time of Evaluation: 11:20 - Subjective Subjective: clinically same Objective - Vital Signs/Intake and Output Vital Signs (last 24 hours): Temp Pulse Resp BP Pulse Ox 97.9 F 72 19 111/70 96 12/28/17 15:00 12/28/17 15:00 12/28/17 15:00 12/28/17 15:00 12/28/17 15:00 - Medications Medications: Current Medications Acetaminophen (Tylenol 325mg Tab) 650 mg PO Q6 PRN PRN Reason: Pain, Mild (1-3) Acetaminophen/Butalbital/Caffeine (Fioricet) 1 tab PO Q4H PRN PRN Reason: Migraine headache Last Admin: 12/28/17 11:13 Dose: 1 tab Duloxetine HCl (Cymbalta) 30 mg PO HS [facility] Last Admin: 12/27/17 21:35 Dose: 30 mg Enoxaparin Sodium (Lovenox) 40 mg SC DAILY [facility] Last Admin: 12/28/17 11:19 Dose: 40 mg Folic Acid (Folic Acid) 1 mg PO DAILY [facility] Last Admin: 12/28/17 11:20 Dose: 1 mg Vancomycin/Sodium Chloride (Vancomycin 1 Gm/Ns 200 Ml) 1 gm in 200 mls @ 133.333 mls/hr IVPB Q24H [facility] Stop: 12/29/17 15:31 Last Admin: 12/28/17 16:30 Dose: 133.333 mls/hr Piperacillin Sod/Tazobactam Sod (Zosyn 4.5 Gm Iv Premix) 4.5 gm in 100 mls @ 200 mls/hr IVPB Q8H [facility] Last Admin: 12/28/17 13:25 Dose: 200 mls/hr Magnesium Hydroxide (Milk Of Magnesia) 30 ml PO HS PRN PRN Reason: Constipation Multivitamins (Hexavitamin) 1 tab PO DAILY [facility] Last Admin: 12/28/17 11:20 Dose: 1 tab Nicotine (Nicoderm Cq) 1 patch TD DAILY [facility] Last Admin: 12/28/17 11:12 Dose: 1 patch Pantoprazole Sodium (Protonix Ec Tab) 40 mg PO DAILY [facility] Last Admin: 12/28/17 11:20 Dose: 40 mg Sertraline HCl (Zoloft) 25 mg PO DAILY [facility] Last Admin: 12/28/17 11:20 Dose: 25 mg Thiamine HCl (Vitamin B1 Tab) 100 mg PO DAILY [facility] Last Admin: 12/28/17 11:20 Dose: 100 mg Topiramate (Topamax) 50 mg PO DAILY [facility] Last Admin: 12/28/17 11:13 Dose: 50 mg Tramadol HCl (Ultram) 50 mg PO Q8 PRN PRN Reason: pain Last Admin: 12/28/17 03:03 Dose: 50 mg Zolpidem Tartrate (Ambien) 5 mg PO HS [facility] Last Admin: 12/27/17 21:35 Dose: 5 mg - Labs Labs: 12/27/17 08:31 12/27/17 08:31 PT 13.2 SECONDS (9.7-12.2) H 12/23/17 14:05 INR 1.2 12/23/17 14:05 APTT 38 SECONDS (21-34) H 12/23/17 14:05 - Constitutional Appears: Well - Head Exam Head Exam: ATRAUMATIC, NORMAL INSPECTION, NORMOCEPHALIC - Eye Exam Eye Exam: EOMI, Normal appearance, PERRL Pupil Exam: NORMAL ACCOMODATION, PERRL - ENT Exam ENT Exam: Mucous Membranes Moist, Normal Exam - Neck Exam Neck Exam: Full ROM, Normal Inspection. absent: Lymphadenopathy - Respiratory Exam Respiratory Exam: Decreased Breath Sounds - Cardiovascular Exam Cardiovascular Exam: REGULAR RHYTHM, +S1, +S2 - GI/Abdominal Exam GI & Abdominal Exam: Soft, Diminished Bowel Sounds - Rectal Exam Rectal Exam: Deferred Assessment and Plan (1) Abdominal pain Status: Acute (2) Abrasion Status: Acute (3) Abscess of eyebrow Status: Acute (4) Acute on chronic pancreatitis Status: Chronic (5) Alcohol abuse Status: Chronic (6) Alcohol abuse Status: Chronic (7) Alcohol abuse with intoxication Status: Acute (8) Alcohol dependence Status: Chronic (9) Alcohol intoxication Status: Acute (10) Alcohol withdrawal Status: Acute (11) Alcohol withdrawal seizure Status: Acute (12) Anemia Status: Chronic (13) Anxiety and depression Status: Chronic (14) Aspiration into lower respiratory tract Status: Chronic (15) Back contusion Status: Acute (16) Bacteremia Status: Acute (17) Bilateral lower extremity edema Status: Acute (18) Breakthrough seizure Status: Acute (19) Cellulitis Status: Acute (20) Cellulitis of lower extremity Status: Acute (21) Cholecystitis Status: Chronic (22) Chronic calcific pancreatitis Status: Acute (23) Chronic pancreatitis Status: Chronic (24) COPD (chronic obstructive pulmonary disease) Status: Chronic (25) Dehydration Status: Acute (26) Depression Status: Chronic (27) Diarrhea Status: Acute (28) Dressing change/suture removal Status: Acute (29) Drug dependence Status: Acute (30) Duodenitis Status: Acute (31) Electrolyte imbalance Status: Acute (32) Elevated alkaline phosphatase level Status: Acute (33) Empyema Status: Suspected (34) Facial abscess Status: Acute (35) Facial laceration Status: Acute (36) Fall Status: Acute (37) Fever Status: Acute (38) Head contusion Status: Acute (39) Head trauma Status: Acute (40) Homelessness Status: Acute (41) Hyperphosphatemia Status: Acute (42) Hypertension Status: Chronic (43) Hypokalemia Status: Acute (44) Hypokalemia with normal acid-base balance Status: Acute (45) Hypomagnesemia Status: Acute (46) Hypothermia Status: Acute (47) Low vitamin D level Status: Acute (48) Pancreatic mass Status: Acute (49) Pancreatitis, acute Status: Acute (50) Periapical abscess Status: Acute (51) Peripheral motor neuropathy Status: Chronic (52) Pneumonia Status: Acute (53) Pneumonia Status: Acute (54) Prophylactic measure Status: Acute (55) Respiratory failure with hypoxia and hypercapnia Status: Acute (56) Seizure Status: Acute (57) Skull fracture Status: Acute (58) Subarachnoid bleed Status: Acute (59) Subdural hematoma Status: Acute (60) Subdural hemorrhage Status: Acute (61) Thrombocythemia Status: Acute (62) Thrombocytopenia Status: Acute (63) Tobacco abuse Status: Acute (64) Tremors of nervous system Status: Acute (65) Vitamin D deficiency Status: Acute
[2017-12-29] MEDS: Piperacill/Tazo 4.5gm in Dex 4.5 GM/100 ML BAG IVPB SCH ×3 (05:15→22:48)
[2017-12-29 08:19] LABS: BASO # 0.1 K/uL (0.0-0.2); EOS # 0.4 K/uL (0.0-0.7); EOS % 6.8 % (0.0-4.0); HEMOGLOBIN 13.2 g/dL (12.0-18.0); LYMPH # 1.8 K/uL (1.0-4.3); MEAN CELL VOLUME 82.8 fL (80.0-94.0); MEAN CORPUSCULAR HEMOGLOBIN 28.3 pg (27.0-31.0); MEAN CORPUSCULAR HGB CONC 34.2 g/dL (33.0-37.0); MEAN PLATELET VOLUME 8.4 fL (7.2-11.7); MONO # 0.4 K/uL (0.0-0.8); MONO % 6.4 % (0.0-10.0); NEUT % 53.8 % (50.0-75.0); RBC 4.66 Mil/uL (4.40-5.90); RED CELL DISTRIBUTION WIDTH 15.5 % (11.5-14.5); WHITE BLOOD COUNT 5.6 K/uL (4.8-10.8)
[2017-12-29 08:38] LABS: ALB/GLOB RATIO 1.2 (1.0-2.1); ALT/SGPT 23 U/L (21-72); AST/SGOT 19 U/L (17-59); BLOOD UREA NITROGEN 9 mg/dL (9-20); CALCIUM 8.9 mg/dl (8.6-10.4); GFR AFRICAN-AMERICAN > 60; GFR NON-AFRICAN AMERICAN > 60; MAGNESIUM 1.4 mg/dL (1.6-2.3)
[2017-12-29] MEDS: Enoxaparin 40 mg Syringe SC SCH (09:31)
[2017-12-29] MEDS: Multiple Vitamins Tab PO SCH (09:34)
[2017-12-29] MEDS: Pantoprazole 40 mg EC Tab PO SCH (09:34)
[2017-12-29] MEDS: Apap-Butalbital-Caffeine 325-50-40mg Tab PO PRN (09:38)
[2017-12-29] MEDS ORDERED: Potassium Chloride 20 mEq ER Tab PO ONE (15:30)
--- NOTE | 2017-12-29 16:48 | CP.PCM.PN ---
Subjective - Date & Time of Evaluation Date of Evaluation: 12/29/17 Time of Evaluation: 10:40 - Subjective Subjective: clinically same Objective - Vital Signs/Intake and Output Vital Signs (last 24 hours): Temp Pulse Resp BP Pulse Ox 97.9 F 58 L 18 123/82 99 12/29/17 09:11 12/29/17 09:11 12/29/17 09:11 12/29/17 09:11 12/29/17 09:11 Intake and Output: 12/29/17 12/29/17 06:59 18:59 Intake Total 500 Balance 500 - Medications Medications: Current Medications Acetaminophen (Tylenol 325mg Tab) 650 mg PO Q6 PRN PRN Reason: Pain, Mild (1-3) Acetaminophen/Butalbital/Caffeine (Fioricet) 1 tab PO Q4H PRN PRN Reason: Migraine headache Last Admin: 12/29/17 09:38 Dose: 1 tab Duloxetine HCl (Cymbalta) 30 mg PO HS [facility] Last Admin: 12/28/17 21:41 Dose: 30 mg Enoxaparin Sodium (Lovenox) 40 mg SC DAILY [facility] Last Admin: 12/29/17 09:31 Dose: 40 mg Folic Acid (Folic Acid) 1 mg PO DAILY [facility] Last Admin: 12/29/17 09:34 Dose: 1 mg Piperacillin Sod/Tazobactam Sod (Zosyn 4.5 Gm Iv Premix) 4.5 gm in 100 mls @ 200 mls/hr IVPB Q8H [facility] Last Admin: 12/29/17 13:12 Dose: 200 mls/hr Magnesium Hydroxide (Milk Of Magnesia) 30 ml PO HS PRN PRN Reason: Constipation Multivitamins (Hexavitamin) 1 tab PO DAILY [facility] Last Admin: 12/29/17 09:34 Dose: 1 tab Nicotine (Nicoderm Cq) 1 patch TD DAILY [facility] Last Admin: 12/29/17 09:30 Dose: 1 patch Pantoprazole Sodium (Protonix Ec Tab) 40 mg PO DAILY [facility] Last Admin: 12/29/17 09:34 Dose: 40 mg Sertraline HCl (Zoloft) 25 mg PO DAILY [facility] Last Admin: 12/29/17 09:34 Dose: 25 mg Thiamine HCl (Vitamin B1 Tab) 100 mg PO DAILY [facility] Last Admin: 02/24/18 09:34 Dose: 100 mg Topiramate (Topamax) 50 mg PO DAILY [facility] Last Admin: 12/29/17 09:34 Dose: 50 mg Tramadol HCl (Ultram) 50 mg PO Q8 PRN PRN Reason: pain Last Admin: 12/29/17 13:09 Dose: 50 mg Zolpidem Tartrate (Ambien) 5 mg PO HS [facility] Last Admin: 12/28/17 21:40 Dose: 5 mg - Labs Labs: 12/29/17 08:07 12/29/17 08:07 PT 13.2 SECONDS (9.7-12.2) H 12/23/17 14:05 INR 1.2 12/23/17 14:05 APTT 38 SECONDS (21-34) H 12/23/17 14:05 - Constitutional Appears: Well - Head Exam Head Exam: ATRAUMATIC, NORMAL INSPECTION, NORMOCEPHALIC - Eye Exam Eye Exam: EOMI, Normal appearance, PERRL Pupil Exam: NORMAL ACCOMODATION, PERRL - ENT Exam ENT Exam: Mucous Membranes Moist, Normal Exam - Neck Exam Neck Exam: Full ROM, Normal Inspection. absent: Lymphadenopathy - Respiratory Exam Respiratory Exam: Decreased Breath Sounds - Cardiovascular Exam Cardiovascular Exam: REGULAR RHYTHM, +S1, +S2 - GI/Abdominal Exam GI & Abdominal Exam: Soft, Diminished Bowel Sounds - Rectal Exam Rectal Exam: Deferred Assessment and Plan (1) Abdominal pain Status: Acute (2) Abrasion Status: Acute (3) Abscess of eyebrow Status: Acute (4) Acute on chronic pancreatitis Status: Chronic (5) Alcohol abuse Status: Chronic (6) Alcohol abuse Status: Chronic (7) Alcohol abuse with intoxication Status: Acute (8) Alcohol dependence Status: Chronic (9) Alcohol intoxication Status: Acute (10) Alcohol withdrawal Status: Acute (11) Alcohol withdrawal seizure Status: Acute (12) Anemia Status: Chronic (13) Anxiety and depression Status: Chronic (14) Aspiration into lower respiratory tract Status: Chronic (15) Back contusion Status: Acute (16) Bacteremia Status: Acute (17) Bilateral lower extremity edema Status: Acute (18) Breakthrough seizure Status: Acute (19) Cellulitis Status: Acute (20) Cellulitis of lower extremity Status: Acute (21) Cholecystitis Status: Chronic (22) Chronic calcific pancreatitis Status: Acute (23) Chronic pancreatitis Status: Chronic (24) COPD (chronic obstructive pulmonary disease) Status: Chronic (25) Dehydration Status: Acute (26) Depression Status: Chronic (27) Diarrhea Status: Acute (28) Dressing change/suture removal Status: Acute (29) Drug dependence Status: Acute (30) Duodenitis Status: Acute (31) Electrolyte imbalance Status: Acute (32) Elevated alkaline phosphatase level Status: Acute (33) Empyema Status: Suspected (34) Facial abscess Status: Acute (35) Facial laceration Status: Acute (36) Fall Status: Acute (37) Fever Status: Acute (38) Head contusion Status: Acute (39) Head trauma Status: Acute (40) Homelessness Status: Acute (41) Hyperphosphatemia Status: Acute (42) Hypertension Status: Chronic (43) Hypokalemia Status: Acute (44) Hypokalemia with normal acid-base balance Status: Acute (45) Hypomagnesemia Status: Acute (46) Hypothermia Status: Acute (47) Low vitamin D level Status: Acute (48) Pancreatic mass Status: Acute (49) Pancreatitis, acute Status: Acute (50) Periapical abscess Status: Acute (51) Peripheral motor neuropathy Status: Chronic (52) Pneumonia Status: Acute (53) Pneumonia Status: Acute (54) Prophylactic measure Status: Acute (55) Respiratory failure with hypoxia and hypercapnia Status: Acute (56) Seizure Status: Acute (57) Skull fracture Status: Acute (58) Subarachnoid bleed Status: Acute (59) Subdural hematoma Status: Acute (60) Subdural hemorrhage Status: Acute (61) Thrombocythemia Status: Acute (62) Thrombocytopenia Status: Acute (63) Tobacco abuse Status: Acute (64) Tremors of nervous system Status: Acute (65) Vitamin D deficiency Status: Acute
[2017-12-29] MEDS: Vancomycin 1 gm/NS 200 ml 1 GM/200 ML BAG IVPB SCH (17:10)
[2017-12-30] MEDS: Piperacill/Tazo 4.5gm in Dex 4.5 GM/100 ML BAG IVPB SCH ×3 (04:53→20:33)
[2017-12-30 08:34] LABS: BASO % 0.9 % (0.0-2.0); EOS # 0.4 K/uL (0.0-0.7); EOS % 7.6 % (0.0-4.0); HEMOGLOBIN 13.2 g/dL (12.0-18.0); LYMPH # 1.9 K/uL (1.0-4.3); LYMPH % 36.6 % (20.0-40.0); MEAN CELL VOLUME 83.4 fL (80.0-94.0); MEAN CORPUSCULAR HEMOGLOBIN 28.3 pg (27.0-31.0); MEAN CORPUSCULAR HGB CONC 33.9 g/dL (33.0-37.0); MEAN PLATELET VOLUME 8.3 fL (7.2-11.7); MONO # 0.4 K/uL (0.0-0.8); MONO % 7.4 % (0.0-10.0); NEUT # 2.4 K/uL (1.8-7.0); NEUT % 47.5 % (50.0-75.0); NRBC % 0.1 % (0.0-2.0); RBC 4.66 Mil/uL (4.40-5.90); RED CELL DISTRIBUTION WIDTH 15.6 % (11.5-14.5); WHITE BLOOD COUNT 5.1 K/uL (4.8-10.8)
[2017-12-30 08:53] LABS: ALB/GLOB RATIO 1.2 (1.0-2.1); ALBUMIN 3.9 g/dL (3.5-5.0); ALT/SGPT 26 U/L (21-72); AST/SGOT 20 U/L (17-59); BLOOD UREA NITROGEN 10 mg/dL (9-20); CALCIUM 9.6 mg/dl (8.6-10.4); GFR AFRICAN-AMERICAN > 60; GFR NON-AFRICAN AMERICAN > 60; MAGNESIUM 1.5 mg/dL (1.6-2.3)
[2017-12-30] MEDS: Enoxaparin 40 mg Syringe SC SCH (10:10)
[2017-12-30] MEDS: Pantoprazole 40 mg EC Tab PO SCH (10:10)
[2017-12-30] MEDS: Multiple Vitamins Tab PO SCH (10:10)
--- NOTE | 2017-12-30 15:00 | CP.PCM.PN ---
Subjective - Date & Time of Evaluation Date of Evaluation: 12/30/17 Time of Evaluation: 08:00 - Subjective Subjective: less facial swelling no pain Objective - Vital Signs/Intake and Output Vital Signs (last 24 hours): Temp Pulse Resp BP Pulse Ox 97.5 F L 60 18 113/70 96 12/30/17 09:35 12/30/17 09:35 12/30/17 09:35 12/30/17 09:35 12/30/17 09:35 Intake and Output: 12/30/17 12/30/17 06:59 18:59 Intake Total 850 Balance 850 - Medications Medications: Current Medications Acetaminophen (Tylenol 325mg Tab) 650 mg PO Q6 PRN PRN Reason: Pain, Mild (1-3) Acetaminophen/Butalbital/Caffeine (Fioricet) 1 tab PO Q4H PRN PRN Reason: Migraine headache Last Admin: 12/29/17 09:38 Dose: 1 tab Duloxetine HCl (Cymbalta) 30 mg PO HS [facility] Last Admin: 12/29/17 22:48 Dose: 30 mg Enoxaparin Sodium (Lovenox) 40 mg SC DAILY [facility] Last Admin: 12/30/17 10:10 Dose: 40 mg Folic Acid (Folic Acid) 1 mg PO DAILY [facility] Last Admin: 12/30/17 10:10 Dose: 1 mg Piperacillin Sod/Tazobactam Sod (Zosyn 4.5 Gm Iv Premix) 4.5 gm in 100 mls @ 200 mls/hr IVPB Q8H [facility] Last Admin: 12/30/17 13:56 Dose: 200 mls/hr Magnesium Hydroxide (Milk Of Magnesia) 30 ml PO HS PRN PRN Reason: Constipation Multivitamins (Hexavitamin) 1 tab PO DAILY [facility] Last Admin: 12/30/17 10:10 Dose: 1 tab Nicotine (Nicoderm Cq) 1 patch TD DAILY [facility] Last Admin: 12/30/17 10:11 Dose: 1 patch Pantoprazole Sodium (Protonix Ec Tab) 40 mg PO DAILY [facility] Last Admin: 12/30/17 10:10 Dose: 40 mg Sertraline HCl (Zoloft) 25 mg PO DAILY [facility] Last Admin: 12/30/17 10:10 Dose: 25 mg Thiamine HCl (Vitamin B1 Tab) 100 mg PO DAILY [facility] Last Admin: 12/30/17 10:10 Dose: 100 mg Topiramate (Topamax) 50 mg PO DAILY [facility] Last Admin: 12/30/17 10:11 Dose: 50 mg Tramadol HCl (Ultram) 50 mg PO Q8 PRN PRN Reason: pain Last Admin: 12/30/17 10:16 Dose: 50 mg Zolpidem Tartrate (Ambien) 5 mg PO HS [facility] Last Admin: 12/29/17 22:48 Dose: 5 mg - Labs Labs: 12/30/17 08:16 12/30/17 08:16 PT 13.2 SECONDS (9.7-12.2) H 12/23/17 14:05 INR 1.2 12/23/17 14:05 APTT 38 SECONDS (21-34) H 12/23/17 14:05 - Constitutional Appears: Chronically Ill - Head Exam Head Exam: NORMAL INSPECTION - Eye Exam Eye Exam: absent: Scleral icterus - ENT Exam ENT Exam: Mucous Membranes Dry - Neck Exam Neck Exam: absent: Lymphadenopathy - Respiratory Exam Respiratory Exam: Decreased Breath Sounds - Cardiovascular Exam Cardiovascular Exam: REGULAR RHYTHM - GI/Abdominal Exam GI & Abdominal Exam: Distended, Soft - Rectal Exam Rectal Exam: Deferred - Exam Exam: NORMAL INSPECTION - Extremities Exam Extremities Exam: absent: Pedal Edema - Back Exam Back Exam: absent: CVA tenderness (L), CVA tenderness (R) Assessment and Plan (1) Abscess of eyebrow Status: Acute (2) Facial abscess Status: Acute
--- NOTE | 2017-12-30 16:21 | CP.PCM.PN ---
Subjective - Date & Time of Evaluation Date of Evaluation: 12/30/17 Time of Evaluation: 12:00 - Subjective Subjective: clinically same Objective - Vital Signs/Intake and Output Vital Signs (last 24 hours): Temp Pulse Resp BP Pulse Ox 98.1 F 59 L 18 124/80 96 12/30/17 15:48 12/30/17 15:48 12/30/17 15:48 12/30/17 15:48 12/30/17 15:48 Intake and Output: 12/30/17 12/30/17 06:59 18:59 Intake Total 850 Balance 850 - Medications Medications: Current Medications Acetaminophen (Tylenol 325mg Tab) 650 mg PO Q6 PRN PRN Reason: Pain, Mild (1-3) Acetaminophen/Butalbital/Caffeine (Fioricet) 1 tab PO Q4H PRN PRN Reason: Migraine headache Last Admin: 12/29/17 09:38 Dose: 1 tab Duloxetine HCl (Cymbalta) 30 mg PO HS [facility] Last Admin: 12/29/17 22:48 Dose: 30 mg Enoxaparin Sodium (Lovenox) 40 mg SC DAILY [facility] Last Admin: 12/30/17 10:10 Dose: 40 mg Folic Acid (Folic Acid) 1 mg PO DAILY [facility] Last Admin: 12/30/17 10:10 Dose: 1 mg Piperacillin Sod/Tazobactam Sod (Zosyn 4.5 Gm Iv Premix) 4.5 gm in 100 mls @ 200 mls/hr IVPB Q8H [facility] Last Admin: 12/30/17 13:56 Dose: 200 mls/hr Magnesium Hydroxide (Milk Of Magnesia) 30 ml PO HS PRN PRN Reason: Constipation Multivitamins (Hexavitamin) 1 tab PO DAILY [facility] Last Admin: 12/30/17 10:10 Dose: 1 tab Nicotine (Nicoderm Cq) 1 patch TD DAILY [facility] Last Admin: 12/30/17 10:11 Dose: 1 patch Pantoprazole Sodium (Protonix Ec Tab) 40 mg PO DAILY [facility] Last Admin: 12/30/17 10:10 Dose: 40 mg Sertraline HCl (Zoloft) 25 mg PO DAILY [facility] Last Admin: 12/30/17 10:10 Dose: 25 mg Thiamine HCl (Vitamin B1 Tab) 100 mg PO DAILY [facility] Last Admin: 02/25/18 10:10 Dose: 100 mg Topiramate (Topamax) 50 mg PO DAILY [facility] Last Admin: 12/30/17 10:11 Dose: 50 mg Tramadol HCl (Ultram) 50 mg PO Q8 PRN PRN Reason: pain Last Admin: 12/30/17 10:16 Dose: 50 mg Zolpidem Tartrate (Ambien) 5 mg PO HS [facility] Last Admin: 12/29/17 22:48 Dose: 5 mg - Labs Labs: 12/30/17 08:16 12/30/17 08:16 PT 13.2 SECONDS (9.7-12.2) H 12/23/17 14:05 INR 1.2 12/23/17 14:05 APTT 38 SECONDS (21-34) H 12/23/17 14:05 Assessment and Plan (1) Abdominal pain Status: Acute (2) Abrasion Status: Acute (3) Abscess of eyebrow Status: Acute (4) Acute on chronic pancreatitis Status: Chronic (5) Alcohol abuse Status: Chronic (6) Alcohol abuse Status: Chronic (7) Alcohol abuse with intoxication Status: Acute (8) Alcohol dependence Status: Chronic (9) Alcohol intoxication Status: Acute (10) Alcohol withdrawal Status: Acute (11) Alcohol withdrawal seizure Status: Acute (12) Anemia Status: Chronic (13) Anxiety and depression Status: Chronic (14) Aspiration into lower respiratory tract Status: Chronic (15) Back contusion Status: Acute (16) Bacteremia Status: Acute (17) Bilateral lower extremity edema Status: Acute (18) Breakthrough seizure Status: Acute (19) Cellulitis Status: Acute (20) Cellulitis of lower extremity Status: Acute (21) Cholecystitis Status: Chronic (22) Chronic calcific pancreatitis Status: Acute (23) Chronic pancreatitis Status: Chronic (24) COPD (chronic obstructive pulmonary disease) Status: Chronic (25) Dehydration Status: Acute (26) Depression Status: Chronic (27) Diarrhea Status: Acute (28) Dressing change/suture removal Status: Acute (29) Drug dependence Status: Acute (30) Duodenitis Status: Acute (31) Electrolyte imbalance Status: Acute (32) Elevated alkaline phosphatase level Status: Acute (33) Empyema Status: Suspected (34) Facial abscess Status: Acute (35) Facial laceration Status: Acute (36) Fall Status: Acute (37) Fever Status: Acute (38) Head contusion Status: Acute (39) Head trauma Status: Acute (40) Homelessness Status: Acute (41) Hyperphosphatemia Status: Acute (42) Hypertension Status: Chronic (43) Hypokalemia Status: Acute (44) Hypokalemia with normal acid-base balance Status: Acute (45) Hypomagnesemia Status: Acute (46) Hypothermia Status: Acute (47) Low vitamin D level Status: Acute (48) Pancreatic mass Status: Acute (49) Pancreatitis, acute Status: Acute (50) Periapical abscess Status: Acute (51) Peripheral motor neuropathy Status: Chronic (52) Pneumonia Status: Acute (53) Pneumonia Status: Acute (54) Prophylactic measure Status: Acute (55) Respiratory failure with hypoxia and hypercapnia Status: Acute (56) Seizure Status: Acute (57) Skull fracture Status: Acute (58) Subarachnoid bleed Status: Acute (59) Subdural hematoma Status: Acute (60) Subdural hemorrhage Status: Acute (61) Thrombocythemia Status: Acute (62) Thrombocytopenia Status: Acute (63) Tobacco abuse Status: Acute (64) Tremors of nervous system Status: Acute (65) Vitamin D deficiency Status: Acute
[2017-12-31] MEDS: Piperacill/Tazo 4.5gm in Dex 4.5 GM/100 ML BAG IVPB SCH ×3 (05:38→21:06)
[2017-12-31 08:49] LABS: BASO # 0.1 K/uL (0.0-0.2); BASO % 1.1 % (0.0-2.0); EOS # 0.4 K/uL (0.0-0.7); EOS % 7.5 % (0.0-4.0); HEMOGLOBIN 13.2 g/dL (12.0-18.0); LYMPH # 1.9 K/uL (1.0-4.3); MEAN CELL VOLUME 82.9 fL (80.0-94.0); MEAN CORPUSCULAR HEMOGLOBIN 28.6 pg (27.0-31.0); MEAN CORPUSCULAR HGB CONC 34.5 g/dL (33.0-37.0); MEAN PLATELET VOLUME 8.5 fL (7.2-11.7); MONO # 0.4 K/uL (0.0-0.8); MONO % 7.3 % (0.0-10.0); NEUT # 2.3 K/uL (1.8-7.0); NEUT % 46.1 % (50.0-75.0); NRBC % 0.1 % (0.0-2.0); RBC 4.64 Mil/uL (4.40-5.90); RED CELL DISTRIBUTION WIDTH 15.5 % (11.5-14.5)
[2017-12-31 09:03] LABS: ALB/GLOB RATIO 1.1 (1.0-2.1); ALBUMIN 4.1 g/dL (3.5-5.0); ALT/SGPT 28 U/L (21-72); AST/SGOT 22 U/L (17-59); BLOOD UREA NITROGEN 9 mg/dL (9-20); CALCIUM 9.6 mg/dl (8.6-10.4); GFR AFRICAN-AMERICAN > 60; GFR NON-AFRICAN AMERICAN > 60; MAGNESIUM 1.4 mg/dL (1.6-2.3)
[2017-12-31] MEDS: Pantoprazole 40 mg EC Tab PO SCH (09:57)
[2017-12-31] MEDS: Multiple Vitamins Tab PO SCH (09:57)
[2017-12-31] MEDS: Enoxaparin 40 mg Syringe SC SCH (09:57)
--- NOTE | 2017-12-31 19:05 | CP.PCM.PN ---
Subjective - Date & Time of Evaluation Date of Evaluation: 12/31/17 Time of Evaluation: 11:00 - Subjective Subjective: clinically same Objective - Vital Signs/Intake and Output Vital Signs (last 24 hours): Temp Pulse Resp BP Pulse Ox 97.3 F L 68 20 143/79 97 12/31/17 16:35 12/31/17 16:35 12/31/17 16:35 12/31/17 16:35 12/31/17 16:35 Intake and Output: 12/31/17 01/01/18 18:59 06:59 Intake Total 550 Balance 550 - Medications Medications: Current Medications Acetaminophen (Tylenol 325mg Tab) 650 mg PO Q6 PRN PRN Reason: Pain, Mild (1-3) Acetaminophen/Butalbital/Caffeine (Fioricet) 1 tab PO Q4H PRN PRN Reason: Migraine headache Last Admin: 12/29/17 09:38 Dose: 1 tab Duloxetine HCl (Cymbalta) 30 mg PO HS [facility] Last Admin: 12/30/17 22:12 Dose: 30 mg Folic Acid (Folic Acid) 1 mg PO DAILY [facility] Last Admin: 12/31/17 09:57 Dose: 1 mg Piperacillin Sod/Tazobactam Sod (Zosyn 4.5 Gm Iv Premix) 4.5 gm in 100 mls @ 200 mls/hr IVPB Q8H [facility] Last Admin: 12/31/17 12:07 Dose: 200 mls/hr Magnesium Hydroxide (Milk Of Magnesia) 30 ml PO HS PRN PRN Reason: Constipation Multivitamins (Hexavitamin) 1 tab PO DAILY [facility] Last Admin: 12/31/17 09:57 Dose: 1 tab Nicotine (Nicoderm Cq) 1 patch TD DAILY [facility] Last Admin: 12/31/17 09:56 Dose: 1 patch Pantoprazole Sodium (Protonix Ec Tab) 40 mg PO DAILY [facility] Last Admin: 12/31/17 09:57 Dose: 40 mg Sertraline HCl (Zoloft) 25 mg PO DAILY [facility] Last Admin: 12/31/17 09:57 Dose: 25 mg Thiamine HCl (Vitamin B1 Tab) 100 mg PO DAILY [facility] Last Admin: 12/31/17 09:57 Dose: 100 mg Topiramate (Topamax) 50 mg PO DAILY [facility] Last Admin: 12/31/17 09:57 Dose: 50 mg Tramadol HCl (Ultram) 50 mg PO Q8 PRN PRN Reason: pain Last Admin: 12/31/17 07:39 Dose: 50 mg Zolpidem Tartrate (Ambien) 5 mg PO HS [facility] Last Admin: 12/30/17 22:12 Dose: 5 mg - Labs Labs: 12/31/17 08:40 12/31/17 08:40 PT 13.2 SECONDS (9.7-12.2) H 12/23/17 14:05 INR 1.2 12/23/17 14:05 APTT 38 SECONDS (21-34) H 12/23/17 14:05 - Constitutional Appears: Well - Head Exam Head Exam: ATRAUMATIC, NORMAL INSPECTION, NORMOCEPHALIC - Eye Exam Eye Exam: EOMI, Normal appearance, PERRL Pupil Exam: NORMAL ACCOMODATION, PERRL - ENT Exam ENT Exam: Mucous Membranes Moist, Normal Exam - Neck Exam Neck Exam: Full ROM, Normal Inspection. absent: Lymphadenopathy - Respiratory Exam Respiratory Exam: Decreased Breath Sounds - Cardiovascular Exam Cardiovascular Exam: REGULAR RHYTHM, +S1, +S2 - GI/Abdominal Exam GI & Abdominal Exam: Soft, Diminished Bowel Sounds - Rectal Exam Rectal Exam: Deferred Assessment and Plan (1) Abdominal pain Status: Acute (2) Abrasion Status: Acute (3) Abscess of eyebrow Status: Acute (4) Acute on chronic pancreatitis Status: Chronic (5) Alcohol abuse Status: Chronic (6) Alcohol abuse Status: Chronic (7) Alcohol abuse with intoxication Status: Acute (8) Alcohol dependence Status: Chronic (9) Alcohol intoxication Status: Acute (10) Alcohol withdrawal Status: Acute (11) Alcohol withdrawal seizure Status: Acute (12) Anemia Status: Chronic (13) Anxiety and depression Status: Chronic (14) Aspiration into lower respiratory tract Status: Chronic (15) Back contusion Status: Acute (16) Bacteremia Status: Acute (17) Bilateral lower extremity edema Status: Acute (18) Breakthrough seizure Status: Acute (19) Cellulitis Status: Acute (20) Cellulitis of lower extremity Status: Acute (21) Cholecystitis Status: Chronic (22) Chronic calcific pancreatitis Status: Acute (23) Chronic pancreatitis Status: Chronic (24) COPD (chronic obstructive pulmonary disease) Status: Chronic (25) Dehydration Status: Acute (26) Depression Status: Chronic (27) Diarrhea Status: Acute (28) Dressing change/suture removal Status: Acute (29) Drug dependence Status: Acute (30) Duodenitis Status: Acute (31) Electrolyte imbalance Status: Acute (32) Elevated alkaline phosphatase level Status: Acute (33) Empyema Status: Suspected (34) Facial abscess Status: Acute (35) Facial laceration Status: Acute (36) Fall Status: Acute (37) Fever Status: Acute (38) Head contusion Status: Acute (39) Head trauma Status: Acute (40) Homelessness Status: Acute (41) Hyperphosphatemia Status: Acute (42) Hypertension Status: Chronic (43) Hypokalemia Status: Acute (44) Hypokalemia with normal acid-base balance Status: Acute (45) Hypomagnesemia Status: Acute (46) Hypothermia Status: Acute (47) Low vitamin D level Status: Acute (48) Pancreatic mass Status: Acute (49) Pancreatitis, acute Status: Acute (50) Periapical abscess Status: Acute (51) Peripheral motor neuropathy Status: Chronic (52) Pneumonia Status: Acute (53) Pneumonia Status: Acute (54) Prophylactic measure Status: Acute (55) Respiratory failure with hypoxia and hypercapnia Status: Acute (56) Seizure Status: Acute (57) Skull fracture Status: Acute (58) Subarachnoid bleed Status: Acute (59) Subdural hematoma Status: Acute (60) Subdural hemorrhage Status: Acute (61) Thrombocythemia Status: Acute (62) Thrombocytopenia Status: Acute (63) Tobacco abuse Status: Acute (64) Tremors of nervous system Status: Acute (65) Vitamin D deficiency Status: Acute
[2017-12-31] MEDS: Apap-Butalbital-Caffeine 325-50-40mg Tab PO PRN (21:03)
[2018-01-01 08:22] VITALS: PULSE 72
[2018-01-01 08:40] LABS: BASO # 0.1 K/uL (0.0-0.2); BASO % 1.3 % (0.0-2.0); EOS # 0.3 K/uL (0.0-0.7); EOS % 6.6 % (0.0-4.0); HEMOGLOBIN 13.8 g/dL (12.0-18.0); LYMPH # 1.7 K/uL (1.0-4.3); LYMPH % 34.6 % (20.0-40.0); MEAN CELL VOLUME 83.2 fL (80.0-94.0); MEAN CORPUSCULAR HEMOGLOBIN 28.6 pg (27.0-31.0); MEAN CORPUSCULAR HGB CONC 34.3 g/dL (33.0-37.0); MEAN PLATELET VOLUME 8.5 fL (7.2-11.7); MONO # 0.3 K/uL (0.0-0.8); MONO % 6.9 % (0.0-10.0); NEUT # 2.5 K/uL (1.8-7.0); NEUT % 50.6 % (50.0-75.0); RBC 4.81 Mil/uL (4.40-5.90); RED CELL DISTRIBUTION WIDTH 15.5 % (11.5-14.5); WHITE BLOOD COUNT 4.9 K/uL (4.8-10.8)
[2018-01-01 09:01] LABS: ALB/GLOB RATIO 1.2 (1.0-2.1); ALBUMIN 4.3 g/dL (3.5-5.0); ALT/SGPT 27 U/L (21-72); AST/SGOT 22 U/L (17-59); BLOOD UREA NITROGEN 11 mg/dL (9-20); CALCIUM 9.9 mg/dl (8.6-10.4); GFR AFRICAN-AMERICAN > 60; GFR NON-AFRICAN AMERICAN > 60; MAGNESIUM 1.4 mg/dL (1.6-2.3)
[2018-01-01] MEDS: Pantoprazole 40 mg EC Tab PO SCH (09:11)
[2018-01-01] MEDS: Multiple Vitamins Tab PO SCH (09:11)
[2018-01-01 16:14] VITALS: BP 125/84; RESP 20; TEMP 97.8; O2SAT 95
== END 2018-01-01 16:20 | DRG 535 ==
LOC: C.ER 12:33 → C.9E 15:34 → C.5S 12-24 17:55
PROVIDERS: ADMIT Internal Medicine Nephrology; ATTEND Internal Medicine Nephrology
DX: H00.036 Abscess of eyelid left eye, unspecified eyelid (principal); K85.90 Acute pancreatitis without necrosis or infection, unspecified; J96.91 Respiratory failure, unspecified with hypoxia; D69.6 Thrombocytopenia, unspecified; K86.1 Other chronic pancreatitis; J44.9 Chronic obstructive pulmonary disease, unspecified; E87.6 Hypokalemia; F10.239 Alcohol dependence with withdrawal, unspecified; L03.119 Cellulitis of unspecified part of limb; E86.0 Dehydration; L03.213 Periorbital cellulitis; I10 Essential (primary) hypertension; F32.9 Major depressive disorder, single episode, unspecified; Z87.891 Personal history of nicotine dependence; F41.9 Anxiety disorder, unspecified; G43.909 Migraine, unspecified, not intractable, without status migrainosus; G47.00 Insomnia, unspecified; D64.9 Anemia, unspecified; E55.9 Vitamin D deficiency, unspecified; Z59.0 Homelessness; G40.509 Epileptic seizures related to external causes, not intractable, without status epilepticus

== ENCOUNTER 2018-01-07 13:03 | Inpatient (IN) | payer MEDICAID, OTHER ==
[2018-01-07 13:10] VITALS: BMI 20.9
[2018-01-07 14:46] LABS: BASO # 0.1 K/uL (0.0-0.2); BASO % 1.4 % (0.0-2.0); EOS # 0.4 K/uL (0.0-0.7); EOS % 7.8 % (0.0-4.0); HEMOGLOBIN 13.8 g/dL (12.0-18.0); LYMPH # 1.9 K/uL (1.0-4.3); MEAN CELL VOLUME 83.9 fL (80.0-94.0); MEAN CORPUSCULAR HEMOGLOBIN 28.7 pg (27.0-31.0); MEAN CORPUSCULAR HGB CONC 34.2 g/dL (33.0-37.0); MEAN PLATELET VOLUME 8.8 fL (7.2-11.7); MONO # 0.5 K/uL (0.0-0.8); NEUT # 2.2 K/uL (1.8-7.0); NEUT % 43.8 % (50.0-75.0); RBC 4.82 Mil/uL (4.40-5.90); RED CELL DISTRIBUTION WIDTH 15.3 % (11.5-14.5); WHITE BLOOD COUNT 5.1 K/uL (4.8-10.8)
[2018-01-07 15:16] LABS: ALB/GLOB RATIO 1.1 (1.0-2.1); ALBUMIN 4.4 g/dL (3.5-5.0); ALT/SGPT 45 U/L (21-72); AST/SGOT 36 U/L (17-59); BLOOD UREA NITROGEN 11 mg/dL (9-20); GFR AFRICAN-AMERICAN > 60; GFR NON-AFRICAN AMERICAN > 60
[2018-01-07 15:36] LABS: SPERM URINE FEW /hpf; SQUAMOUS EPITHIAL < 1 /hpf (0-5); URINE BILIRUBIN NEGATIVE (NEGATIVE); URINE BLOOD NEGATIVE (NEGATIVE); URINE CLARITY Clear (Clear); URINE COLOR Straw (YELLOW); URINE GLUCOSE (UA) 1+ mg/dL (Normal); URINE LEUKOCYTE ESTERASE NEG Leu/uL (Negative); URINE PROTEIN NEGATIVE (NEGATIVE); URINE UROBILINOGEN NORMAL mg/dL (0.2-1.0)
[2018-01-07 16:00] LABS: BARBITURATES, UR NEGATIVE (NEGATIVE); BENZODIAZEPINES, UR NEGATIVE (NEGATIVE); OPIATES, UR NEGATIVE (NEGATIVE); PHENCYCLIDINE, UR NEGATIVE (NEGATIVE)
--- NOTE | 2018-01-07 16:28 | C.PDOC ---
History Of Present Illness 52 y/o male sent from retirement to the ER for psychiatric evaluation. Patient states that he is depressed. Patient reports that he has had multiple previous evaluations for his psychiatric history and intoxication. Of note, patient is argumentative and confrontational. Time Seen by Provider: 01/07/18 13:17 Chief Complaint (Nursing): Psychiatric Evaluation History Per: Patient History/Exam Limitations: no limitations Onset/Duration Of Symptoms: Days Current Symptoms Are (Timing): Still Present Severity: Moderate Past Medical History Reviewed: Historical Data, Nursing Documentation, Vital Signs Vital Signs: Last Vital Signs Temp 98 F 01/07/18 18:18 Pulse 71 01/07/18 18:44 Resp 20 01/07/18 18:44 BP 130/62 01/07/18 18:18 Pulse Ox 98 01/07/18 18:18 - Medical History PMH: Anemia, Anxiety, Arthritis, COPD, Depression, HTN, Pancreatitis, Pneumonia , Seizures Surgical History: - [facility] Procedures ALCOHOL DETOXIFICATION (07/31/14) DETOXIFICATION SERVICES FOR SUBSTANCE ABUSE TREATMENT (12/02/16) EXCISION OF SMALL INTESTINE, ENDO, DIAGN (12/02/16) INFLUENZA VACCINATION (10/21/13) INJECT/INFUSE ELECTROLYT (05/15/13) INJECT/INFUSE NEC (10/02/14) INSERT INTERCOSTAL CATH (01/22/15) INSERTION OF ENDOTRACHEAL AIRWAY INTO TRACHEA, VIA OPENING (03/09/17) INSERTION OF INFUSION DEV INTO SUP VENA CAVA, PERC APPROACH (12/02/16) LINEAR REP LID LACER (11/07/14) OTHER GROUP THERAPY (06/07/13) RESPIRATORY VENTILATION, GREATER THAN 96 CONSECUTIVE HOURS (03/09/17) TETANUS TOXOID ADMINIST (11/07/14) THORACOSCOPIC DECORTICATION OF LUNG (01/22/15) TRANSFUSE NONAUT PLATELETS IN PERIPH VEIN, PERC (06/29/16) VACCINATION NEC (02/18/15) Family History: States: No Known Family Hx - Social History Hx Tobacco Use: Yes Hx Alcohol Use: No Hx Substance Use: No - Immunization History Hx Tetanus Toxoid Vaccination: No Hx Influenza Vaccination: Yes Hx Pneumococcal Vaccination: Yes Review Of Systems Except As Marked, All Systems Reviewed And Found Negative. Psych: Positive for: Depression Physical Exam - Physical Exam Appears: Other (tall, thin, disheveled) Skin: Normal Color, Warm Head: Atraumatic, Normacephalic Eye(s): bilateral: Normal Inspection Nose: Normal Oral Mucosa: Moist Neck: Supple Chest: Symmetrical Cardiovascular: Rhythm Regular Respiratory: Normal Breath Sounds, No Accessory Muscle Use, No Rales, No Rhonchi , No Wheezing Extremity: Normal ROM Neurological/Psych: Oriented x3, Normal Speech, Normal Motor, Normal Sensation ED Course And Treatment - Laboratory Results Result Diagrams: 01/07/18 14:42 01/07/18 14:42 Lab Interpretation: Normal (tox/etoh neg.) O2 Sat by Pulse Oximetry: 97 (RA) Pulse Ox Interpretation: Normal Reevaluation Time: 16:27 Reassessment Condition: Unchanged - Physician Consult Information Outcome Of Conversation: 1630: d/w Crisis ok to admit to 5E Disposition Doctor Will See Patient In The: Hospital Counseled Patient/Family Regarding: Studies Performed, Diagnosis - Disposition Disposition: HOSPITALIZED Disposition Time: 16:27 Condition: GOOD - Clinical Impression Clinical Impression: Depression - Scribe Statement The provider has reviewed the documentation as recorded by the Yocastaibe Tadeo Montanez Provider Attestation: All medical record entries made by the Scribe were at my direction and personally dictated by me. I have reviewed the chart and agree that the record accurately reflects my personal performance of the history, physical exam, medical decision making, and the department course for this patient. I have also personally directed, reviewed, and agree with the discharge instructions and disposition.
--- NOTE | 2018-01-07 19:18 | PCM.BM ---
<Faye Olivo - Last Filed: 01/07/18 19:17> Treatment Plan Problems - Problems identified on initial assessmt Depression Date Initiated: 01/07/18 Time Initiated: 19:17 Assessment reference: NA Status: Active Treatment assets and liabiliti Patient Assests: cooperative - Milieu Protocol Maintain good personal hygiene: every shift Encourage regular showers, every shift Remind patient to perform daily oral care, every shift Assist patient to perform ADL's Maintain personal safety: every shift Educate patient to report safety concerns to staff, every shift Monitor environment for contraband/sharps Medication safety: Monitor for expected outcome, potential side effects: every shift, Assess barriers to learning: every shift, Assess readiness for medication education: every shift <Caryn Troncoso - Last Filed: 01/11/18 10:51> - Diagnosis (1) Depression Status: Chronic Interventions: 01/11/18 10:51 * Assess/adjust medications daily and /or as needed * See patient on an individual basis 7x/week to assess symptoms of depression * Monitor for side effects & effectiveness of medications * <Jennifer Green - Last Filed: 01/11/18 11:08> Family Contact Family involvement: Famliy/SO not involved - Goals for Treatment Patient goals for treatment: "I want to leave." Discharge/Continuing Care - Education Needs Education Needs: Patient Medication, Patient Coping Skills - Discharge Discharge Criteria: Tolerates medication w/o severe side effects, Free of Suicidal thoughts, Reduction of target symptoms Discharge to:: [facility] - Treatment Team Participation Discussed with Family/SO: No Was Patient/Family/SO present at Treatment Team Meeting: Yes
[2018-01-07 21:25] VITALS: O2SAT 97
[2018-01-08 09:49] VITALS: RESP 18; TEMP 97.6
--- NOTE | 2018-01-08 10:17 | PCM.PSYCH ---
Initial Psychiatric Evaluation - Initial Psychiatric Evaluation Type of Admission: Voluntary Legal Status: Capacity Chief Complaint (in patient's own words): I don't know why am I here.' History of Present Illness and Precipitating Events: Pt is a 52 year old male referred to the ED by [facility] due to SI and depressed symptoms. Pt remained irritable and agitated during the interview. He was superficially cooperative but remained guarded bout the denials. As per the ED charts, reported depressed thoughts, lack of interests in activities, hopelessness and made a suicidal statement at the [facility]. Pt reported he is in alot of pain but unable to articulate. Pt reports history of alcohol use for 42 years and reports sobriety for over 10 months. Pt reports he has no family. Pt has no hobbies. 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 Pt reports he has been at [facility] for 7 months, doesn't like it there and speaks to very little people there. Pt unsure how long he is going to be at [facility] and does not know where he would go if he left there. Pt not interested in treatment , therapy or inpatient psychiatric admission. He remained confused, irritable and agitated during the interview. He appeared somewhat disorganized, paranoid and delusional. However, he denied any AVH during the interview. PMH: h/o Facial Abscess L eye, and skulll fracture, COPD, arthritis and pancreatitis Current Medications: Active Medications Generic Name Dose Route Start Last Admin Trade Name Freq PRN Reason Stop Dose Admin Duloxetine HCl 30 mg 01/08/18 10:00 Cymbalta PO DAILY [facility] Ibuprofen 600 mg 01/08/18 03:05 01/08/18 03:12 Motrin Tab PO 600 mg TID PRN Administration Pain, moderate (4-7) Multivitamins 1 tab 01/08/18 10:00 Hexavitamin PO DAILY [facility] Past Psychiatric History - Past Psychiatric History Previous Treatment History: None Pertinent Medical Hx (Current Medical&Sleep Prob, Allergies): Allergies Allergy/AdvReac Type Severity Reaction Status Date / Time No Known Allergies Allergy Verified 01/07/18 13:09 Folic Acid 1 mg PO DAILY tab 05/07/17 Multivitamins [Hexavitamin] 1 tab PO DAILY tab 05/07/17 Nicotine 14 mg/24 hr [Nicoderm CQ] 1 patch TD DAILY patch 05/07/17 Thiamine [Vitamin B1 Tab] 100 mg PO DAILY tab 05/07/17 Topiramate [Topamax] 50 mg PO DAILY tab 05/07/17 Magnesium Hydroxide [Milk Of Magnesia] 30 ml PO HS PRN 07/31/17 Sertraline [Zoloft] 25 mg PO DAILY 07/31/17 Zolpidem [Ambien] 5 mg PO HS 07/31/17 traMADol [Ultram] 50 mg PO Q8 07/31/17 Acetaminophen [Tylenol 325mg tab] 325 mg PO Q4H PRN 12/23/17 Acetaminophen [Tylenol 325mg tab] 650 mg PO Q6 PRN 12/23/17 Acetaminophen/Butalbital/Caf [Fioricet] 1 tab PO Q4H PRN 12/23/17 DULoxetine [Cymbalta] 30 mg PO HS 12/23/17 Ubidecarenone [Coenzyme Q-10] 400 mg PO DAILY 12/23/17 Clindamycin [Cleocin] 300 mg PO Q6H #20 cap 12/28/17 Review of Systems - Review of Systems All systems: reviewed and no additional remarkable complaints except - Psychiatric Psychiatric: Anxiety, Irritability, Mood Swings, Suicidal Ideation Mental Status Examination - Personal Presentation Personal Presentation: Looks stated age - Affect Affect: Broad, Blunted - Motor Activity Motor Activity: Psychomotor Agitation - Reliability in Providing Information Reliability in Providing Information: Poor, due to alteration in thoughts, Poor , due to altered mood - Speech Speech: Disorganized - Formal Thought Process Formal Thought Process: Paranoia, Loosening of associations - Hallucinations/Delusions Delusions: Persecution - Obsessions/Compulsions Obsessions: No Compulsions: No - Cognitive Functions Orientation: Person, Place, Situation, Time Sensorium: Alert Attention/Concentration: Attentive Abstract Thinking: [place] Estimate of Intelligence: Below average Judgement: Imparied, as evidence by: Poor judgement, Imparied, as evidence by: Lack of insight into illness - Risk Risk: Diminished functioning - Limitations Limitations: Living alone DSM 5 DX - DSM 5 DSM 5 Diagnosis: Bipolar depressed sever with psychotic features Alcohol use disorder in remission. - Recommended/Plan of Treatment Treatment Recommendations and Plan of Treatment: Bipolar disorder depressed severe with psychotic features CBT Psychoeducation Supportive therapy, group therapy, individual therapy Cymbalta 30 mg by mouth daily Sertraline 25 mg PO Daily Toporamate 25 mg at bedtime Ambian 5 mg PO QHS Klonopin 0.5 mg PO BID Alcohol use disorder in remission. Psychoeducation Supportive therapy, group therapy, individual therapy Monitor signs and symptoms Ativan 1 mg pO Q6hr prn Use [place] for abstinence h/o Facial Abscess L eye, and skulll fracture, Monitor signs and symptoms COPD, Monitor signs and symptoms Arthritis Monitor signs and symptoms h/o Pancreatitis: Monitor signs and symptoms - Smoking Cessation Smoking Cessation Initiated: No
[2018-01-08] MEDS ORDERED: Magnesium Hydroxide Susp 30 ml UD PO PRN (10:18)
[2018-01-08] MEDS ORDERED: UBIDECARENONE 400 MG PO SCH (10:30)
[2018-01-08] MEDS ORDERED: Multiple Vitamins Tab PO SCH (10:30)
[2018-01-08] MEDS: Multiple Vitamins Tab PO SCH (11:00)
[2018-01-09] MEDS: Multiple Vitamins Tab PO SCH (10:47)
--- NOTE | 2018-01-09 11:05 | PCM.PYCHPN ---
Psychiatric Progress Note - Psychiatric Progress Note Patient seen today, length of contact: 15 min Patient Chief Complaint: I don't know why am I here.' Problems Identified/Issues Discussed: Patient seen and evaluated, chart reviewed and discussed with the nurse. Patient remained irritable and agitated. He continued to yell and curse at the staff. He still reports of back pain. He remained delusional and suspicious. He was disorganized and internally preoccupied. However, He remained on his bed and continued to refuse eating. He has started taking medication and denies any side effects Symptoms are improving but need more time to stabilize. Supportive therapy and psychoeducation were given. Medication Change: Yes (start Depakote) Medical Record Reviewed: Yes Mental Status Examination - Cognitive Function Orientation: Person, Place, Situation, Time Memory: Intact Attention: Poor Concentration: Poor Association: Loose Fund of Knowledge: Poor - Mood Mood: Anxious - Affect Affect: Broad - Speech Speech: Soft, Pressured - Formal Thought Process Formal Thought Process: Delusions, Paranoia, Loosening of associations - Suicidal Ideation Suicidal Ideation: No - Homicidal Ideation Homicidal Ideation: No Goal/Treatment Plan - Goal/Treatment Plan Need for Continued Stay: Severe depression anxiety, Severe functional impairment Progress Toward Problem(s) and Goals/Treatment Plan: Bipolar disorder depressed severe with psychotic features CBT Psychoeducation Supportive therapy, group therapy, individual therapy d/c Cymbalta 30 mg by mouth daily Start Depakote 250 mg PO BID Sertraline 25 mg PO Daily Toporamate 25 mg at bedtime Ambian 5 mg PO QHS Klonopin 1 mg PO TID Alcohol use disorder in remission. Psychoeducation Supportive therapy, group therapy, individual therapy Monitor signs and symptoms Ativan 1 mg pO Q6hr prn Use [place] for abstinence h/o Facial Abscess L eye, and skulll fracture, Monitor signs and symptoms COPD, Monitor signs and symptoms Arthritis Monitor signs and symptoms h/o Pancreatitis: Monitor signs and symptoms
[2018-01-09] MEDS ORDERED: Divalproex 250 mg DR Tab PO ONE (14:45)
[2018-01-09] MEDS: Divalproex 250 mg DR Tab PO SCH (17:55)
--- NOTE | 2018-01-09 22:09 | PCM.PYCHPN ---
Psychiatric Progress Note - Psychiatric Progress Note Patient Chief Complaint: I don't know why am I here.' Mental Status Examination - Cognitive Function Orientation: Person, Place, Situation, Time - Affect Affect: Broad, Blunted - Formal Thought Process Formal Thought Process: Paranoia, Loosening of associations - Homicidal Ideation Homicidal Ideation: No Goal/Treatment Plan - Goal/Treatment Plan Progress Toward Problem(s) and Goals/Treatment Plan: Bipolar disorder depressed severe with psychotic features CBT Psychoeducation Supportive therapy, group therapy, individual therapy Cymbalta 30 mg by mouth daily Sertraline 25 mg PO Daily Toporamate 25 mg at bedtime Ambian 5 mg PO QHS Klonopin 0.5 mg PO BID Alcohol use disorder in remission. Psychoeducation Supportive therapy, group therapy, individual therapy Monitor signs and symptoms Ativan 1 mg pO Q6hr prn Use [place] for abstinence h/o Facial Abscess L eye, and skulll fracture, Monitor signs and symptoms COPD, Monitor signs and symptoms Arthritis Monitor signs and symptoms h/o Pancreatitis: Monitor signs and symptoms
[2018-01-10] MEDS: Divalproex 250 mg DR Tab PO SCH ×2 (10:22→18:56)
[2018-01-10] MEDS: Multiple Vitamins Tab PO SCH (10:22)
--- NOTE | 2018-01-10 13:51 | PCM.PYCHPN ---
Psychiatric Progress Note - Psychiatric Progress Note Patient seen today, length of contact: 15 min Patient Chief Complaint: I am feeling better.' Problems Identified/Issues Discussed: Patient seen and evaluated, chart reviewed and discussed with the nurse. As per the staff, patient is doing much better than before. However still reports back pain and he is still yelling and cursing at staff. He denies any auditory or visual hallucinations and denies any suicidal ideation or homicidal ideation. Patient remained irritable and agitated. He has started taking medication and denies any side effects Symptoms are improving but need more time to stabilize. Supportive therapy and psychoeducation were given. Medication Change: Yes (Increase Depakote) Medical Record Reviewed: Yes Mental Status Examination - Cognitive Function Orientation: Person, Place, Situation, Time Memory: Intact Attention: WNL Concentration: WNL Association: WNL Fund of Knowledge: WNL - Mood Mood: Anxious - Affect Affect: Broad - Speech Speech: Soft, Pressured - Formal Thought Process Formal Thought Process: No Impairment - Suicidal Ideation Suicidal Ideation: No - Homicidal Ideation Homicidal Ideation: No Goal/Treatment Plan - Goal/Treatment Plan Need for Continued Stay: Severe depression anxiety, Severe functional impairment Progress Toward Problem(s) and Goals/Treatment Plan: Bipolar disorder depressed severe with psychotic features CBT Psychoeducation Supportive therapy, group therapy, individual therapy Depakote 500 mg PO BID Toporamate 50 mg at bedtime Ambian 5 mg PO QHS Klonopin 1 mg PO TID Alcohol use disorder in remission. Psychoeducation Supportive therapy, group therapy, individual therapy Monitor signs and symptoms Ativan 1 mg pO Q6hr prn Use [place] for abstinence h/o Facial Abscess L eye, and skulll fracture, Monitor signs and symptoms COPD, Monitor signs and symptoms Arthritis Monitor signs and symptoms h/o Pancreatitis: Monitor signs and symptoms - Smoking Cessation Smoking Cessation Initiated: No
[2018-01-10 15:49] VITALS: BP 134/84; PULSE 76
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
[2018-01-11] MEDS: Multiple Vitamins Tab PO SCH (10:02)
[2018-01-11] MEDS: Divalproex 250 mg DR Tab PO SCH (10:02)
[2018-01-11] MEDS ORDERED: Divalproex 500 mg DR Tab PO SCH (10:24)
--- NOTE | 2018-01-11 10:30 | PCM.PYCHDC ---
Mental Status Examination - Mental Status Examination Orientation: Person, Place, Situation, Time Memory: Intact Mood: Neutral Affect: Constricted Speech: Soft Attention: WNL Concentration: WNL Association: WNL Fund of Knowledge: WNL Formal Thought Process: No Impairment Description of patient's judgement and insight: good, fair Psychotic Thoughts and Behaviors: denies any AVH Suicidal Ideation: No Current Homicidal Ideation?: No Discharge Summary - Discharge Note Reason for Hospitalization: Pt is a 52 year old male referred to the ED by [facility] due to SI and depressed symptoms. Pt remained irritable and agitated during the interview. He was superficially cooperative but remained guarded bout the denials. As per the ED charts, reported depressed thoughts, lack of interests in activities, hopelessness and made a suicidal statement at the [facility]. Pt reported he is in alot of pain but unable to articulate. Pt reports history of alcohol use for 42 years and reports sobriety for over 10 months. Pt reports he has no family. Pt has no hobbies. 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 Pt reports he has been at [facility] for 7 months, doesn't like it there and speaks to very little people there. Pt unsure how long he is going to be at [facility] and does not know where he would go if he left there. Pt not interested in treatment , therapy or inpatient psychiatric admission. He remained confused, irritable and agitated during the interview. He appeared somewhat disorganized, paranoid and delusional. However, he denied any AVH during the interview. Laboratory Data: Abnormal Lab Results 01/10/18 01/10/18 18:14 18:29 POC Glucose (mg/dL) 67 83 Consultations:: List each consultation separately and include: 1. Reason for request. 2. Findings. 3. Follow-up Summary of Hospital Course include:: 1. Description of specific treatment plan utilized for patients during their course of treatmen. 2. Summarize the time- course for resolution of acute symptoms and/or regressed behaviors. 3. Describe issues identified and worked on during hospitalization. 4. Describe medication utilized. 5. Describe medical problems identified and treated. 6. Reassessment of suicide risk Summary of Hospital Course: During the course of his stay, patient (pt) started progressively improving and he no longer remained irritable, depressed, and suicidal. His mood was improved and he started attending groups and meetings and started socializing. Patient denied any feelings of hopelessness, helplessness, and worthlessness, denied any problem with the sleep or appetite, denied suicidal ideation or homicidal ideation. Pt denied any auditory or visual hallucinations. Some changes were made in his current medications and patient was discharged on following medications. He tolerated these medications very well and denied any side effects. CBT and CT were used. He was discharged back to [facility]. - Final Diagnosis (DSM 5) Condition upon Discharge: GOOD DSM 5: Bipolar disorder depressed severe with psychotic features Alcohol use disorder in remission. Disposition: HOME/ ROUTINE Follow-up Treatment Plan: Education: Pt was educated and counseled about the risks and benefits of taking and not taking medications. Pt was educated and counseled about the risks of drinking and abusing drugs. Pt was educated and counseled to go to the ER or call 911 if pt develop suicidal ideation or homicidal ideation, worsening of symptoms or severe side effects of the meds. Prescriptions/Medication Reconciliation: Divalproex [Depakote DR] 500 mg PO BID #60 tcp hydrOXYzine HCl [Atarax] 25 mg PO TID #90 tab Ketorolac Tromethamine [Toradol] 10 mg PO TID #90 tab traZODone [Desyrel] 50 mg PO HS #30 tab - Smoking Cessation Smoking Cessation Medication prescribed: No - Antipsychotic Medications Pt discharged on 2 or more routine antipsychotic medications: No
== END 2018-01-11 16:50 | disposition home or self-care (01) | DRG 430 ==
LOC: C.ER 13:03 → UNDOADMIN 16:28 → C.5E 16:28 → C.9E 16:28
PROVIDERS: ADMIT Psychiatry & Neurology Psychiatry; ATTEND Psychiatry & Neurology Psychiatry
DX: F31.5 Bipolar disorder, current episode depressed, severe, with psychotic features (principal); I10 Essential (primary) hypertension; J44.9 Chronic obstructive pulmonary disease, unspecified; M19.90 Unspecified osteoarthritis, unspecified site; Z87.891 Personal history of nicotine dependence